=== PATIENT | female | born 1950 | race Caucasian/White ===

== ENCOUNTER → 2017-06-18 08:51 | Outpatient (CLI) | payer MEDICARE, OTHER, SELFPAY ==
[2017-06-18 09:45] VITALS: PULSE 105; PULSE 113; PULSE 116; PULSE 121; PULSE 123; PULSE 94; PULSE 97; O2SAT 87; O2SAT 90; O2SAT 91; O2SAT 92; O2SAT 93; O2SAT 97
--- NOTE | 2017-06-18 09:48 | CPS ---
Patient started test on room air, SpO2 94%. At the 2nd minute patient was 87%, patient had walked 310 ft by this time. Placed patient on 2 lpm O2, SpO2 recovered to 97%. Patient walked the remaining 4 minutes and 556 ft on 2 lpm O2, SpO2 90% or greater.
--- NOTE | 2017-06-18 15:03 | WT_ITS ---
PSN 6 Minute Walk Test - 6 Minute Walk Test 6 Minute Walk Test: 6 Minute Walk Test PSN:6-Minute Walk Test Start: 06/18/17 09: 45 Freq: Status: Active Protocol: [id number].6MINW Document 06/18/17 09:45 ROXANA (Rec: 06/18/17 09:51 ROXANA [id number]) 6 Minute Walk Test Date Performed 06/18/17 Time Performed 09:15 Height 5 ft 5 in Weight: 104.326 kg Weight in Pounds 230.[address]: Twan Maynard Assistive device used: None Pre-test Oxygen Delivery Method Room Air Pulse Ox (%) 93 Pulse Rate (60-100 beats/min) 94 Dyspnea Pamella Scale (0-10) 0 Exertion Pamella Scale (6-20) 6 1st minute Oxygen Delivery Method Room Air Pulse Ox (%) 91 Pulse Rate (60-100 beats/min) 105 H 2nd minute Oxygen Delivery Method Room Air Pulse Ox (%) 87 Pulse Rate (60-100 beats/min) 116 H Dyspnea Pamella Scale (0-10) 3 3rd minute Oxygen Flow Rate (L/min) (L/min) 2 Oxygen Delivery Method Nasal Cannula Pulse Ox (%) 97 Pulse Rate (60-100 beats/min) 113 H 4th minute Oxygen Flow Rate (L/min) (L/min) 2 Oxygen Delivery Method Nasal Cannula Pulse Ox (%) 92 Pulse Rate (60-100 beats/min) 116 H 5th minute Oxygen Flow Rate (L/min) (L/min) 2 Oxygen Delivery Method Nasal Cannula Pulse Ox (%) 90 Pulse Rate (60-100 beats/min) 121 H 6th minute Oxygen Flow Rate (L/min) (L/min) 2 Oxygen Delivery Method Nasal Cannula Pulse Ox (%) 90 Pulse Rate (60-100 beats/min) 123 H Dyspnea Pamella Scale (0-10) 2 Exertion Pamella Scale (6-20) 13 Post-test Oxygen Flow Rate (L/min) (L/min) 2 Oxygen Delivery Method Nasal Cannula Pulse Ox (%) 97 Pulse Rate (60-100 beats/min) 97 Full Laps Walked 14 Partial Lap, Number of Tiles Walked 40 Total Distance Walked (ft) 866 06/18/17 09:48 Cardiopulmonary Services by Lilly Krishnamurthy Patient started test on room air, SpO2 94%. At the 2nd minute patient was 87%, patient had walked 310 ft by this time. Placed patient on 2 lpm O2, SpO2 recovered to 97%. Patient walked the remaining 4 minutes and 556 ft on 2 lpm O2 , SpO2 90% or greater. Initialized on 06/18/17 09:48 - END OF NOTE - Interpretation Interpretation: The patient was noted to be 93% on room air at rest. The patient then ambulated with no assistive devices, but in the second minute desaturated to 87% . The patient was placed on 2 L nasal cannula with improvement to 98%. Patient did desaturate as low as 90% and had persistent tachycardia noted with a peak heart rate of 123 bpm. In total, patient traveled 866 feet. These findings are consistent with a respiratory limitation exercise tolerance. - Recommendations Recommendations: Patient requires no supplemental oxygen at rest, but should be using 2 L/min with any exertion.
== END ==
PROVIDERS: Family Provider Internal Medicine; PCP Internal Medicine; Visit Provider Internal Medicine Critical Care Medicine
DX: J44.9 Chronic obstructive pulmonary disease, unspecified (principal)
CPT/HCPCS: 94618

== ENCOUNTER → 2017-06-24 07:07 | Outpatient (CLI) | payer MEDICARE, OTHER, SELFPAY ==
--- NOTE | 2017-06-24 13:01 | PFT ---
INTRODUCTION: The patient is a 66-year-old female currently under the care of myself the presents for pulmonary function testing secondary to a diagnosis of COPD. Respiratory therapy reports good patient effort and reports no other concerns. Bronchodilators were used during testing. INTERPRETATION: Forced expiration spirometry demonstrates the presence of a severe large airways obstructive ventilatory defect. There was a significant response to aerosolized bronchodilators noted. Spirograms are of fair quality and do not plateau indicating slow emptying of the lungs. The respiratory flow volume loop reveals decreased expiratory flow rates at all lung volumes consistent with airways obstruction. Body plethysmography was performed and reveals an elevated TLC and RV, indicative of underlying hyperinflation and air-trapping. Diffusing capacity by single breath CO was severely reduced at 40% of predicted. IMPRESSION: These pulmonary function studies demonstrate the presence of a partially reversible severe large airways obstructive ventilatory defect with associated hyperinflation, air trapping and symmetric reduction in diffusing capacity.
== END ==
PROVIDERS: Family Provider Internal Medicine; PCP Internal Medicine; Visit Provider Internal Medicine Critical Care Medicine
DX: J44.9 Chronic obstructive pulmonary disease, unspecified (principal)
CPT/HCPCS: 94060; 94726; 94729

== ENCOUNTER 2017-06-28 09:30 | Outpatient (RCR) | payer MEDICARE, OTHER, SELFPAY ==
--- NOTE | 2017-06-14 13:12 | PR.HP_ITS ---
History of Present Illness Arrival date:: 06/14/17 Arrival time:: 13:03 Date of Referral:: 06/02/17 Date of Evaluation: 06/14/17 Referring Physician: Dr.Derek Maynard Primary Diagnosis: COPD Stage III Severe, asthma component History of Present Illness: Patient is a 66 yr old female patient of Dr. Twan Maynard who presents to pulmonary rehab today for her COPD and asthma. [facility] Breathless Scale: When is the patient short of breath? Y/N Grade: Description of Breathlessness: 0 I only get breathless with strenuous exercise. 1 I get short of breath when hurrying on level ground or walking up a slight hill. 2 On level ground, I walk slower than people of the same age because of breathless, or have to stop for breath when walking at my own pace. 3 I stop for breath after walking 100 yards or after a few minutes on level ground. 4 I am too breathless to leave the house or I am breathless when dressing. Respiratory Problems: Yes: Fatigue, Wheezing, Able to Speak in Full Sentences, Dyspnea with Activity No: Retain Secretions, Limited Range of Motion, Dizziness, Ankle Swelling, Anxiety, Panic, Dyspnea Lying Down Flat, Cough with Secretions Home Medications: Home Medications Levothyroxine [Synthroid] 25 mcg PO DAILY 06/10/16 Montelukast [Singulair] 10 mg PO DAILY 06/10/16 albuterol sulfate 1.25 mg/3 mL solution for nebulization 1.25 mg INHALATION Q4H PRN ml 05/28/17 citalopram 10 mg tablet 10 mg PO QDAY 05/28/17 fluticasone 50 mcg/actuation nasal spray,suspension 2 spray INTRANASAL QDAY lansoprazole 15 mg capsule,delayed release 15 mg PO QDAY 05/28/17 rizatriptan 10 mg tablet 10 mg PO ONCE PRN 05/28/17 zolpidem 10 mg tablet 10 mg PO QHS tab 05/28/17 albuterol sulfate HFA 90 mcg/actuation aerosol inhaler 2 puff INHALATION Q4H PRN #1 device 06/01/17 budesonide-formoterol HFA 160 mcg-4.5 mcg/actuation aerosol inhaler 2 puff PO BID #1 device 06/01/17 metoprolol succinate ER 25 mg tablet,extended release 24 hr 25 mg PO QDAY tab 06/01/17 tiotropium bromide 2.5 mcg/actuation mist for inhalation 2 puff INHALATION Q24H #1 device 06/01/17 Allergies/Adverse Reactions: Allergies No Known Allergies Allergy (Verified 06/01/17 09:14) - Secretions Thick:: No Thin:: No Hx of Sleep Apnea: No Do you snore loudly (louder than talking or can be heard through closed doors)? : Yes Do you often feel tired/ fatigued/ sleepy during daytime?: Yes Has anyone observed you stop breathing during sleep?: No History of Hypertension (for STOP score): No STOP Results: Positive Medical Utilization Do you use a peak flow meter at home?: No Do you use a spacer device with your inhalers?: No Number of hospital visits in the last year?: 0 Number of emergency room visits in the last year?: 1 Do you see your physician on a regular schedule?: Yes How often?: [address] Maynard; Dr. Astudillo on PRN basis. Advanced Directives - Advanced Directives Power of County Health Officer: Yes Living Will: Yes Advance Directives Information Provided: No Advance Directives on File: No DNR Order?:: No - MOLST See MOLST form: No Past Medical History Medical History: Past Medical History (Last Reviewed 06/01/17 @ 09:14 by Eileen Mathew) BMI 37.0-37.9, adult (Chronic) Z68.37 Hypothyroidism (Chronic) E03.9 Acute asthma exacerbation (Acute) J45.901 Cough R05 Fatigue R53.83 Hypoxia R09.02 Pneumonia J18.9 Shortness of breath R06.02 Allergic rhinitis J30.9 Asthma J45.909 COPD (chronic obstructive pulmonary disease) J44.9 Depression F32.9 HTN (hypertension) I10 Postnasal drip R09.82 Surgical History: Past Surgical History (Last Reviewed 06/01/17 @ 09:14 by Eileen Mathew) H/O thumb surgery Z98.890 to remove arthritis H/O: hysterectomy Z90.710 History of appendectomy Z90.49 TMJ surgery Family History: Family History (Last Reviewed 06/01/17 @ 09:14 by Eileen Mathew) Mother Ovarian cancer Brother Brain cancer Grandmother Breast cancer - Current/ Previous Services Pulmonary Rehab:: No Social History - Smoking History Smoking Status: Former smoker Years Smokin Packs Smoked per Day: 1 Hx Smoking Cessation Date: 1998 Hx Tobacco Use: Yes Hx Smoking Exposure: No - Alcohol Use Alcohol Usage: No - Substance Abuse Hx Substance Use: No - Occupation Occupation (List type of work in comments):: Retired - Hobbies, Recreation, Social Activities Hobbies: Sewing, Hiking, Walking, Exercise - bicycling Recreational Activities: I am able to engage in all my recreational activities Functioning ADL/IADL - Current Ability Current Ability: Independent Self-Care (e.g.,grooming, dressing, & bathing), Independent Ambulation, Independent Transfer, Independent Household tasks (e.g. , light meal prep, laundry, shopping) - Pt Functioning Prior to Problem Prior Functioning: Self-Care (e.g.,grooming, dressing, & bathing): Independent, Ambulation: Independent, Transfer: Independent, Household tasks (e.g., light meal prep, laundry, shopping): Independent Social Environment - Status Marital Status: - Current Living Arrangements Living Environment:: Spouse - Children How many children do you have?: 2 Do any of your children live nearby?: Yes - Safety Do you feel safe in your surroundings?: Yes - Assistance Do you need any assistance at home?: none Review of Systems Review of Systems: Right click = Denies (Slash). Left click = Reports ([place]) Respiratory: Reports: Appetite, Normal, Sleep, Normal. Denies: Cough, SOB at Rest, Sputum production Is Patient Pain Free?: No Pain Location: none Risk Factor Assessment - Chief Complaint Chief Complaint: Patient is known asthmatic with stage III classification Severe COPD. - Vital Signs Temperature: 98.7 F Pulse Rate: 96 Pulse Ox: 93 - room air Blood Pressure: 132/84 Nailbeds:: pink - Smoking Do you use tobacco products? If so, how much and for how long?: No If no, have you EVER used tobacco products?: Quit greater than 12 months ago Exposure to 2nd-hand smoke? How much and how long?: No Do you plan to quit smoking?: No - Diabetes Nutrition Referral for Diabetes: No - Obesity Height: 5 ft 5 in Weight:: 235 lb Weight in Pounds: 235.0 lbs Weight Source: Standing Scale Body Mass Index (BMI): 39.1 Nutritional Referral for Obesity: Yes - Not interested at present time, maybe at some point. - Physical Activity Physical Inactivity: Reg Exercise 30 min/day - Risk Stratification Risk Guidelines: Lowest Risk: Risk Factor for Smoking, Risk Factor for Dyslipidemia, Risk Factor for Diabetes, Risk Factor for Obesity, Risk Factor for Hypertension, Risk Factor for Sedentary Lifestyle, Risk Factor for Depression - For Smoking Smoking Risk Guidelines: Smoking Low Risk: None or quit greater than 6 months ago. Smoking Moderate Risk: Smoker or quit 6 months or less ago. Smoking High Risk: Smoker - For Dyslipidemia Dyslipidemia Risk Guidelines: Low Risk: Moderate Risk: High Risk: 15-25% fat 25.1-29% fat >/= 30% fat. <7% sat fat 7-9% sat fat >9% sat fat. <150 mg chol 150-299 mg chol >/= 300 mg chol. LDL <100 LDL 100-129 LDL >/= 130. Chol/HDL ratio <5.0 Chol/HDL ratio 5.0-6.0 Chol/HDL ratio >6.0. Triglycerides <100 Triglycerides 100-149 Triglycerides >/= 150 - For Diabetes Mellitus Diabetes Risk Guidelines: Diabetes Low Risk: HgA1c <6.5% and/or FBG <120. Diabetes Moderate Risk: HgA1c 6.6-7.9% and/or FBG 120-180. Diabetes High Risk: HgA1c >/= 8% and/or FBG >180 - For Obesity/Overweight Obesity/Overweight Risk Guidelines: Obesity Low Risk: BMI <25.0. Obesity Moderate Risk: BMI 25-29.9. Obesity High Risk: BMI >/= 30.0 - For Hypertension Hypertension Risk Guidelines: Hypertension Low Risk: Systolic <120 and Diastolic <80. Hypertension Moderate Risk: Systolic 120-139 and Diastolic 80-89. Hypertension High Risk: Systolic >/= 140 and Diastolic >/= 90 - For Sedentary Lifestyle Sedentary Lifestyle Risk Guidelines: Sedentary Lifestyle Low Risk: >/= 1 ,500 kcal/week. Sedentary Lifestyle Moderate Risk: 700-1,499 kcal/week. Sedentary Lifestyle High Risk: < 700 kcal/week - For Depression Depression Risk Guidelines: Depression Low Risk: Not clinically depressed. Depression Moderate Risk: Mildly depressed. Depression High Risk: Clinically depressed Motivation - Motivation to Participate On a scale of 1 to 10, how prepared are you to commit to attending program?: 9 What do you see as barriers to successfully being able to complete the program? : can't improve What do you see as the benefits of succesfully completing the program? In other words, what do you hope to get out of participating in the program?: breathe better Are there issues you are dealing with that will interfere with completing the program?: none Do you have a spouse or signficant other, family or friends who will help support you to complete the program?: yes Diagnostic Data Review - 6 Minute Walk Test 6 Minute Walk Test: Patient ambulated 708 feet over the course of 6 minutes on room air without assistance device. She did desaturate to 89% room air. - Pulmonary Function Test FEV1:: 0.95 - 37% predicted FVC:: 2.30 - 70% predicted FEV1/FVC%:: 41
[2017-06-14 13:19] VITALS: BP 132/84; PULSE 96; TEMP 37.1; O2SAT 93; BMI 39.1
--- NOTE | 2017-06-14 13:25 | PCM.PR.DAT ---
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 Effective Oct 30, 2012 our hours will be changing to 8:00 to 4:30 on Wednesday, Wednesday and Wednesday. First Date of the Month: 06/14/17 Last Date of the Month: 06/28/17
--- NOTE | 2017-06-14 13:40 | PR.ITP_ITS ---
General Information - General Information Admitting Diagnosis: COPD Stage III Severe, asthma Gold Classification:: GOLD 3: Severe Oxygen: none - PFT FEV1:: 0.95 FVC:: 2.30 FEV1/FVC%:: 41 - Education/Goals Barriers to Learning: None Individual Counseling: Initial Assessment: Dyspnea control techniques at rest, activity, and ADLs, Inhaled and respiratory medications, ADL management and pacing, Nutrition & weight management, Home exercise plan & guidelines Patient Goals: Breathe better: Initial Assessment, Increase endurance/stamina: Initial Assessment, Return to recreation/hobby: Initial Assessment, Improve weight: Initial Assessment Exercise - Initial Assessment - Visit Date of Eval: 06/14/17 - established plan of care - Problem/Goals Problems: Knowledge deficit exercise guidelines, Knowledge deficit exercise safety - Exercise Prescription Mode:: Treadmill, Rower, Airdyne, NuStep, Arm Ergometer Frequency (x/week): 3 Duration:: 30 MET LEVEL:: 2 - 2.0-3.0 HR (bpm):: 116 - 108-116 THHR Exercise Progression: per protocol. - Plan Plan and Plan to Review:: Benefits of exercise, Core components of exercise, How to measure dyspnea level, How to monitor dyspnea level, Exercise intensity, Exercise safety guideline, Home exercise guidelines, Pamella: 3-4/11-13 Disease Management - Initial - Problems/Goals-Hypoxemia Hypoxemia Problems:: No home O2 Hypoxemia Goals:: Hypoxemia managed - Problems/Goals-Medications Medication Goals: Correct technique/timing & care of MDI, DPI, nebulizer, and spacer. - Problems/Goals-Bronchial Hygiene Bronchial Hygiene Problems:: Respiratory infection Prevention/Management Bronchial Hygiene Goals:: Pt demonstrates effective cough, effective secretion clearance., Pt describes signs and symptoms of infection. - Initial Assessment SpO2:: 93 Does pt report taking home meds as prescribed?: Yes Medications: Yes MDI, Yes DPI, Yes NEB, No Spacer Patient Reports:: No cough - Plans Hypoxemia Plan:: Monitor SpO2 rest & with exercise, Train appropriate O2 use with exercise, Train O2 safety & systems Reviewed prescribed medications:: Purpose, Schedule, Side effects, Importance of compliance Instruct correct technique/timing & care:: MDI, DPI, Nebulizer, Return demo use of inhaler Bronchial Hygiene Plan: Controlled cough, Vibratory PEP device, Hydration, Hand hygiene, Signs/symptoms to report: Psychosocial - Initial Assess - Problems/Goals Problems: Impaired Q.O.L. Psychosocial Goals: Improved Q.O.L. - Psychosocial Test Depression:: Impaired QOL Tests Completed: Mood Scale Test Referred to MD for counseling:: No - Plan Reviewed screening results: Yes Instructions given regarding:: Benefits of exercise, Relaxation techniques, Training in coping strategies Tobacco - Initial Assessment - Program Goals Tobacco Program Goals: Complete smoking cessation. Attend education classes. Improve Knowledge Test score - Stage of Change Stages of Change:: Action - Learning Barriers Learning Barriers: Ready to Learn - Family Support Do you have family support?: Yes - Tobacco Use Tobacco Use: Non-smoker Do you use smokeless tobacco?: No - Intervention Smoking Cessation Referral:: No Individual Education/Counseling:: No Education Schedule Given:: Yes - Education Gave Education Materials For:: Pulmonary Disease, Risk Factors, Breathing Techniques, Medical Compliance, Pulmonary A&P, Exacerbation Signs & Symptoms, Stress & Relaxation Nutrition/Wt Mgmt - Initial - Problems/Goals Problems: Overweight Goals: Wt Loss 1-2 lbs per week - Weight Management Knowledge Deficit Management of:: Overweight Admit Height:: 5 ft 5 in Admit Weight:: 235 lb Admit BMI:: 39.1 - Diabetes Diabetes:: No Insulin: No Do you monitor your blood sugar at home?: No - Intervention Referral to dietitian:: No Referral to Diabetic Clinic:: No Will attend diet classes:: Yes - Plan Nutrition Plan: Yes Nutrition education class:, Yes Medication education class [ Prednisone]:, Yes Weight control education class: Patient Health Questionnaire Initial Assessment 1. Little interest or pleasure in doing things: More than half the days 2. Feeling down, depressed, or hopeless: More than half the days 3. Trouble falling or staying asleep, or sleeping too much: More than half the days 4. Feeling tired or having little energy: Nearly every day 5. Poor appetite or overeating: Several days 6. Feeling bad about yourself -- or that you are a failure or have let yourself or your family down: Several days 7. Trouble concentrating on things, such as reading the newspaper or watching television: Not at all 8. Moving or speaking so slowly that other people could have noticed. Or the opposite - being so fidgety or restless that you have been moving around a lot more than usual: Not at all 9. Thoughts that you would be better off , or of hurting yourself in some way: Not at all How difficult have these problems made it for you to do your work, take care of things at home, or get along with other people?: Not difficult at all Total Score: 11 COPD Knowledge Test Initial COPD is a lung disease that:: Makes it hard to breathe & gets worse over time In the [place] the term COPD describes 2 main lung conditions:: Emphysema & pulmonary hypertension The most common lung irritant that causes COPD is:: Cigarette smoke Common signs and symptoms of COPD include:: An ongoing cough/cough that produces a large amount of mucus, & SOB If you have COPD, what steps can you take?: All of the above Swelling of the ankles is common in COPD:: False Fatigue [tiredness] is common in COPD:: True Wheezing is common in COPD:: True Crushing chest pain is common in COPD:: False Rapid weight loss is common in COPD:: False Breathlessness is a normal response to exercise: True Exercise should be avoided if it makes you short of breath: False All bronchodilators act within 10 minutes: False A spacer device increases the medication to the lungs: True Annual flu vaccine is recommended for pts w/lung disease: False COPD Knowledge Test Total Score:: 13 COPD Assessment Test [CAT] - Questions Never cough = 0, Cough all the time = 5: 1 No phlegm = 0, Chest full of phlegm = 5: 1 No chest tightness = 0, Chest very tight = 5: 2 No breathless w/exertion = 0, Very breathless w/exertion = 5: 5 No limitations w/activity = 0, Very limited w/activity = 5: 2 Confident leaving home = 0, Not at all confident = 5: 0 Sleep soundly = 0, Don't sleep soundly = 5: 3 Lots of energy = 0, No energy at all = 5: 5 Total CAT score:: 19 Self-Efficacy Initial Assessment We would like to know how confident you are in doing certain activities. Please select your confidence level for:: Select your confidence level for the following using the scale 1-10 where 1 is not at all confident and 10 is totally confident. Your score is the average of all 6 responses. Fatigue: How confident are you that you can keep the fatigue caused by your disease from interfering with the things you want to do? Select Number: 5 Physical Discomfort or Pain: How confident are you that you can keep the physical discomfort or pain of your disease from interfering with the things you want to do? Select Number: 5 Emotional Distress: How confident are you that you can keep the emotional distress caused by your disease from interfering with the things you want to do? Select Number: 8 Other Symptoms or Health Problems: How confident are you that you can keep other symptoms or health problems from interfering with the things you want to do? Select Number: 3 Different Tasks and Activities: How confident are you that you can do the different tasks and activities needed to manage your health condition so as to reduce your need to see a doctor? Select Number: 7 Medication: How confident are you that you can do things other than just taking medication to reduce how much your illness affects your everyday life? Select Number: 8 Total Score:: 6 Nutrition Survey - Nutrition Survey Instructions Scoring Instructions: Scoring is as follows: Yes = 1 points. No = 0 point. Patient score that is >/=12 is considered to be at potential nutritional risk and could benefit from a referral to a registered dietitian. - Nutrition Survey Initial Have you lost >10 lbs over the past 2 months without trying?: No Are you following a special diet at home for diabetes, low fat, or low salt?: No Are you interested in meeting with a dietitian for help understanding your diet? : No Do you eat less than 3 meals a day?: No Do you eat fatty meats (castellanos, sausage, ribs, etc), fried foods, desserts, large amounts of salad dressings, margarine, butter, or cheese most days?: Yes Do you have food allergies? [Enter types in comment field]: No Do you eat in restaurants more than 3 times a week?: No Do you season food with salt, seasoning salt, or garlic salt?: No Do you used canned, boxed, frozen meals, or soups, seasoning packets?: Yes Total Score:: 2
[2017-06-14 14:19] VITALS: O2SAT 93; BMI 39.1
== END 2017-06-28 23:59 ==
LOC: PR 09:30
PROVIDERS: Family Provider Internal Medicine; PCP Internal Medicine; Visit Provider Internal Medicine Critical Care Medicine
DX: J44.9 Chronic obstructive pulmonary disease, unspecified (principal)
CPT/HCPCS: 97150; G0424

== ENCOUNTER → 2017-07-16 08:38 | Outpatient (CLI) | payer MEDICARE, OTHER, SELFPAY ==
[2017-07-16 09:26] LABS: Absolute Lymphocyte Count 1.29 X10^3/ul (0.83-4.51); Absolute Neutrophil Count 4.2 X10^3/uL (2.0-7.7); Basophil# 0.01 X10^3/uL; Basophil% 0.2 % (0-1); Eosinophil# 0.01 X10^3/uL; Eosinophils% 0.2 % (0-5); Hematocrit 43.8 % (37-47); Hemoglobin 14.3 g/dl (12.0-15.0); Lymphocyte # 1.29 X10^3/ul (4.0); Lymphocyte % 21.2 % (19-41); Mean Corp Hgb Conc 32.6 g/gl (32-36); Mean Corpuscular Hgb 29.4 pg (27.0-32.0); Mean Corpuscular Volume 90.1 fL (81-99); Mean Platelet Vol. 11.5 fl (6.2-12.0); Monocyte# 0.57 X10^3/uL; Monocyte% 9.4 % (0-10); Neutrophil # 4.18 X10^3/uL (2.7-7.7); Neutrophil % 68.7 % (47-70); POSITIVE COUNT NO; POSITIVE DIFFERENTIAL NO; POSITIVE MORPHOLOGY NO; Platelet Count 226 K/mm3 (150-450); RBC Distribution Width CV 14.2 % (11.6-14.6); RBC Distribution Width SD 46.4 fl (35.1-43.9); Red Blood Count 4.86 M/mm3 (4.2-5.4); White Blood Count 6.1 K/mm3 (4.4-11.0)
[2017-07-20 16:08] LABS: Alternaria alternata <0.10 kU/L (Class 0); Bermuda Grass 4.16 kU/L (Class IV); Bluegrass, Kentucky 4.18 kU/L (Class IV); Cat Hair/Dander, Standard <0.10 kU/L (Class 0); D farinae Mite 0.81 kU/L (Class II); D pteronyssinus 0.25 kU/L (Class 0/I); Dog Epithelia <0.10 kU/L (Class 0); Elm, American White 3.87 kU/L (Class III); Oak, White 4.11 kU/L (Class IV); Plantain, English 3.79 kU/L (Class III)
[2017-07-21 03:08] LABS: Aspirgillus flavus Negative (Neg:<1:1); Aspirgillus fumigatus Negative (Neg:<1:1); Aspirgillus niger Negative (Neg:<1:1)
[2017-07-21 10:20] LABS: Immunoglobulin E 140 IU/mL (0-100)
[2017-07-21 10:47] LABS: Mouse Urine <0.10 kU/L (Class 0)
== END ==
PROVIDERS: Family Provider Internal Medicine; PCP Internal Medicine; Visit Provider Nurse Practitioner Acute Care
DX: J44.9 Chronic obstructive pulmonary disease, unspecified (principal); J30.9 Allergic rhinitis, unspecified; J45.909 Unspecified asthma, uncomplicated
CPT/HCPCS: 36415; 82785; 85025; 86003; 86606; 97150; G0424

== ENCOUNTER 2017-07-28 09:30 | Outpatient (RCR) | payer MEDICARE, OTHER, SELFPAY ==
[2017-06-29 01:06] VITALS: PULSE 96; TEMP 37.1; O2SAT 93
--- NOTE | 2017-07-22 10:25 | PR.DATECOV_ITS ---
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 Effective Oct 30, 2012 our hours will be changing to 8:00 to 4:30 on Wednesday, Wednesday and Wednesday. First Date of the Month: 07/30/17 Last Date of the Month: 08/28/17
--- NOTE | 2017-07-22 10:35 | PR.ITP_ITS ---
General Information - General Information Admitting Diagnosis: COPD Gold Classification:: GOLD 3: Severe - Education/Goals Barriers to Learning: None Individual Counselin-Day Assessment: Dyspnea control techniques at rest, activity, and ADLs - improved, Exacerbation prevention & management, ADL management and pacing - uses proper breathing techniques, Nutrition & weight management, Home exercise plan & guidelines Patient Goals: Breathe better: 30-Day Assessment - uses controlled breathing appropiately with ADLs., Increase endurance/stamina: 30-Day Assessment - more energy, Return to recreation/hobby: 30-Day Assessment - doing more at home, Improve weight: 30-Day Assessment - not progressing as planned Exercise - 30-Day Assessment - Exercise Prescription Mode:: Treadmill, Airdyne, NuStep, Arm Ergometer Frequency (x/week): 3 Duration:: 30 Aerobic Exercise [30-60 min 3-7x/week]:: Progressing Target heart rate: 124-131 Pamella MET Level:: 2.5 - unable to increase due to HRs and BPs - Home Exercise Home Exercise:: No Disease Management - 30-Day - Hypoxemia Reassessment: Demonstrates knowledge of O2 Rx with exercise - Medications Medication list reviewed:: Yes Taking medications 100% of the time:: Met Medication reassessment: Yes Pt demonstrates correct technique timing for MDI, Yes Pt demonstrates correct technique timing for DPI, Yes Pt demonstrates correct technique timing for NEB, Yes Pt demonstrates correct technique timing for spacer - instructed use of spacer device - Bronchial Hygiene Bronchial Hygiene Plan: Yes Pt demonstrates correctly for effective cough, Yes Pt demo correct for device - instructed use of acapella device, Yes Pt demo correct for improved hydration, Yes Pt demo correct for hand hygiene Psychosocial - 30-Day - Assessment Reassessment: Management of stress & depression, Practicing interventions, COPD assessment w/ CAT, Geriatric depression screening, Self efficacy score Tobacco - 30-Day Assessment - Program Goals Tobacco Program Goals: Complete smoking cessation. Attend education classes. Improve Knowledge Test score - Stage of Change Stages of Change:: Action - Learning Barriers Learning Barriers: Participates in education - Family Support Do you have family support?: Yes - Tobacco Use Tobacco Use: Non-smoker - Intervention Education Schedule Given:: Yes - Education Gave Education Materials For:: Tobacco Triggers, Pulmonary Disease, Risk Factors , Breathing Techniques, Medical Compliance, Pulmonary A&P, Exacerbation Signs & Symptoms, Stress & Relaxation Nutrition/Wt Mgmt - 30-Day - Weight Management Weight:: 238 lb - up 2# Weight Goals Progress:: Referral to structured weight management program - Patient could benefit from stuctured weight loss program; Why Weight. Patient Health Questionnaire 30-Day Re-eval Assessment 1. Little interest or pleasure in doing things: Several days 2. Feeling down, depressed, or hopeless: Several days 3. Trouble falling or staying asleep, or sleeping too much: Several days 4. Feeling tired or having little energy: More than half the days 5. Poor appetite or overeating: Not at all 6. Feeling bad about yourself -- or that you are a failure or have let yourself or your family down: Not at all 7. Trouble concentrating on things, such as reading the newspaper or watching television: Not at all 8. Moving or speaking so slowly that other people could have noticed. Or the opposite - being so fidgety or restless that you have been moving around a lot more than usual: Not at all 9. Thoughts that you would be better off , or of hurting yourself in some way: Not at all How difficult have these problems made it for you to do your work, take care of things at home, or get along with other people?: Not difficult at all Total Score: 5 COPD Assessment Test [CAT] - Questions Never cough = 0, Cough all the time = 5: 1 No phlegm = 0, Chest full of phlegm = 5: 1 No chest tightness = 0, Chest very tight = 5: 2 No breathless w/exertion = 0, Very breathless w/exertion = 5: 3 No limitations w/activity = 0, Very limited w/activity = 5: 2 Confident leaving home = 0, Not at all confident = 5: 0 Sleep soundly = 0, Don't sleep soundly = 5: 2 Lots of energy = 0, No energy at all = 5: 3 Total CAT score:: 14 Self-Efficacy 30-Day Re-eval Assessment We would like to know how confident you are in doing certain activities. Please select your confidence level for:: Select your confidence level for the following using the scale 1-10 where 1 is not at all confident and 10 is totally confident. Your score is the average of all 6 responses. Fatigue: How confident are you that you can keep the fatigue caused by your disease from interfering with the things you want to do? Select Number: 6 Physical Discomfort or Pain: How confident are you that you can keep the physical discomfort or pain of your disease from interfering with the things you want to do? Select Number: 6 Emotional Distress: How confident are you that you can keep the emotional distress caused by your disease from interfering with the things you want to do? Select Number: 9 Other Symptoms or Health Problems: How confident are you that you can keep other symptoms or health problems from interfering with the things you want to do? Select Number: 5 Different Tasks and Activities: How confident are you that you can do the different tasks and activities needed to manage your health condition so as to reduce your need to see a doctor? Select Number: 8 Medication: How confident are you that you can do things other than just taking medication to reduce how much your illness affects your everyday life? Select Number: 9 Total Score:: 7
== END 2017-07-29 23:59 ==
LOC: PR 09:30
PROVIDERS: Family Provider Internal Medicine; PCP Internal Medicine; Visit Provider Internal Medicine Critical Care Medicine
DX: J44.9 Chronic obstructive pulmonary disease, unspecified (principal)
CPT/HCPCS: 97150; G0424

== ENCOUNTER → 2017-07-28 21:03 | Outpatient (CLI) | payer MEDICARE, OTHER, SELFPAY | PROVIDERS: Family Provider Internal Medicine; PCP Internal Medicine; Visit Provider Nurse Practitioner Acute Care | DX: G47.33 Obstructive sleep apnea (adult) (pediatric) (principal); J44.9 Chronic obstructive pulmonary disease, unspecified | CPT/HCPCS: 95810; 97150; G0424 ==

== ENCOUNTER → 2017-08-18 21:28 | Outpatient (CLI) | payer MEDICARE, OTHER, SELFPAY ==
[2017-08-18] MEDS: Zolpidem Tartrate 5 MG Tablet PO (21:30)
== END ==
PROVIDERS: Family Provider Internal Medicine; PCP Internal Medicine; Visit Provider Nurse Practitioner Acute Care
DX: G47.33 Obstructive sleep apnea (adult) (pediatric) (principal); J44.9 Chronic obstructive pulmonary disease, unspecified
CPT/HCPCS: 95811; 97150; G0424

== ENCOUNTER 2017-08-25 09:30 | Outpatient (RCR) | payer MEDICARE, OTHER, SELFPAY ==
[2017-07-30 00:55] VITALS: PULSE 96; TEMP 37.1; O2SAT 93
--- NOTE | 2017-08-20 10:33 | PR.DATECOV_ITS ---
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 Effective Oct 30, 2012 our hours will be changing to 8:00 to 4:30 on Wednesday, Wednesday and Wednesday. First Date of the Month: 08/29/17 Last Date of the Month: 09/28/17
--- NOTE | 2017-08-20 10:33 | PCM.PR.TP ---
Exercise - 90-Day Assessment - Exercise Prescription Mode:: Treadmill, NuStep, Arm Ergometer Frequency (x/week): 3 Duration:: 30 Aerobic Exercise [30-60 min 3-7x/week]:: Progressing Target heart rate: 124-132 Pamella-13 MET Level:: 3 - Home Exercise Home Exercise?: Yes Frequency:: 3 Time (minutes):: 30 - physically active, walking Disease Management - 90-Day - Hypoxemia Reassessment: Demonstrates knowledge of O2 Rx with exercise - Medications Medication list reviewed:: Yes Taking medications 100% of the time:: Met Medication reassessment: Yes Pt demonstrates correct technique timing for MDI, Yes Pt demonstrates correct technique timing for DPI, Yes Pt demonstrates correct technique timing for NEB, Yes Pt demonstrates correct technique timing for spacer - Bronchial Hygiene Bronchial Hygiene Plan: Yes Pt demonstrates correctly for effective cough, Yes Pt demo correct for device - return demonstration acapella, Yes Pt demo correct for improved hydration, Yes Pt demo correct for hand hygiene, Yes Pt demo correct for verbalize when to call MD Psychosocial - 90-Day - Assessment Depression reassess: Management of stress: Met, Management of depression: Met, Practicing interventions: Met Tobacco - 90-Day Assessment - Program Goals Tobacco Program Goals: Complete smoking cessation. Attend education classes. Improve Knowledge Test score - Stage of Change Stages of Change:: Action - Learning Barriers Learning Barriers: Participates in education - Family Support Do you have family support?: Yes - Tobacco Use Tobacco Use: Non-smoker - Intervention Education Schedule Given:: Yes - Education Gave Education Materials For:: Pulmonary Disease, Risk Factors, Breathing Techniques, Medical Compliance, Pulmonary A&P, Exacerbation Signs & Symptoms, Stress & Relaxation Nutrition/Wt Mgmt - 90-Day - Weight Management Weight:: 235 lb - loss 3# Weight Goals Progress:: Progressing Patient Health Questionnaire 90-Day Re-eval Assessment 1. Little interest or pleasure in doing things: Not at all 2. Feeling down, depressed, or hopeless: Not at all 3. Trouble falling or staying asleep, or sleeping too much: Not at all 4. Feeling tired or having little energy: Not at all 5. Poor appetite or overeating: Not at all 6. Feeling bad about yourself -- or that you are a failure or have let yourself or your family down: Not at all 7. Trouble concentrating on things, such as reading the newspaper or watching television: Not at all 8. Moving or speaking so slowly that other people could have noticed. Or the opposite - being so fidgety or restless that you have been moving around a lot more than usual: Not at all 9. Thoughts that you would be better off , or of hurting yourself in some way: Not at all Total Score: 0 COPD Assessment Test [CAT] - Questions Never cough = 0, Cough all the time = 5: 1 No phlegm = 0, Chest full of phlegm = 5: 0 No chest tightness = 0, Chest very tight = 5: 0 No breathless w/exertion = 0, Very breathless w/exertion = 5: 1 No limitations w/activity = 0, Very limited w/activity = 5: 0 Confident leaving home = 0, Not at all confident = 5: 1 Sleep soundly = 0, Don't sleep soundly = 5: 2 Lots of energy = 0, No energy at all = 5: 0 Total CAT score:: 5 Self-Efficacy 90-Day Re-eval Assessment We would like to know how confident you are in doing certain activities. Please select your confidence level for:: Select your confidence level for the following using the scale 1-10 where 1 is not at all confident and 10 is totally confident. Your score is the average of all 6 responses. Fatigue: How confident are you that you can keep the fatigue caused by your disease from interfering with the things you want to do? Select Number: 10 Physical Discomfort or Pain: How confident are you that you can keep the physical discomfort or pain of your disease from interfering with the things you want to do? Select Number: 10 Emotional Distress: How confident are you that you can keep the emotional distress caused by your disease from interfering with the things you want to do? Select Number: 10 Other Symptoms or Health Problems: How confident are you that you can keep other symptoms or health problems from interfering with the things you want to do? Select Number: 10 Different Tasks and Activities: How confident are you that you can do the different tasks and activities needed to manage your health condition so as to reduce your need to see a doctor? Select Number: 10 Medication: How confident are you that you can do things other than just taking medication to reduce how much your illness affects your everyday life? Select Number: 10 Total Score:: 10
== END 2017-08-28 23:59 ==
LOC: PR 09:30
PROVIDERS: Family Provider Internal Medicine; PCP Internal Medicine; Visit Provider Internal Medicine Critical Care Medicine
DX: J44.9 Chronic obstructive pulmonary disease, unspecified (principal)
CPT/HCPCS: 97150; G0424

== ENCOUNTER 2017-09-27 09:30 | Outpatient (RCR) | payer MEDICARE, OTHER, SELFPAY ==
[2017-08-29 00:47] VITALS: PULSE 96; TEMP 37.1; O2SAT 93
--- NOTE | 2017-09-21 09:12 | PCM.PR.DAT ---
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 Effective Oct 30, 2012 our hours will be changing to 8:00 to 4:30 on Wednesday, Wednesday and Wednesday. First Date of the Month: 09/29/17 Last Date of the Month: 10/29/17
--- NOTE | 2017-09-21 09:18 | PR.ITP_ITS ---
Exercise - Final Assessment - Exercise Prescription Mode:: Treadmill, NuStep, Arm Ergometer Frequency (x/week): 3 Duration:: 30 Aerobic Exercise [30-60 min 3-7x/week]:: Met Further followup [see D/C Summary]:: No Target heart rate: 124-132 Pamella-13 MET Level:: 3.2 - Maximal level - Home Exercise Home Exercise:: No Disease Management - Final - Hypoxemia Final Assessment: Demonstrates knowledge of O2 Rx with exercise - Medications Medication list reviewed:: Yes Taking medications 100% of the time:: Met Medication reassessment: Yes Pt demonstrates correct technique timing for MDI, Yes Pt demonstrates correct technique timing for DPI, Yes Pt demonstrates correct technique timing for NEB, Yes Pt demonstrates correct technique timing for spacer - returned demonstration use of spacer - Bronchial Hygiene Bronchial Hygiene Plan: Yes Pt demonstrates correctly for effective cough, Yes Pt demo correct for device - returned use of acapella, SMI and IMT devices, Yes Pt demo correct for improved hydration, Yes Pt demo correct for hand hygiene, Yes Pt demo correct for verbalize when to call MD Tobacco - Final Assessment - Program Goals Tobacco Program Goals: Complete smoking cessation. Attend education classes. Improve Knowledge Test score - Stage of Change Stages of Change:: Action - Learning Barriers Learning Barriers: Participates in education - Family Support Do you have family support?: Yes - Tobacco Use Tobacco Use: Non-smoker Do you use smokeless tobacco?: No - Intervention Smoking Cessation Referral:: No Individual Education/Counseling:: No Education Schedule Given:: Yes - Education Education Goal Reached?: Yes Nutrition/Wt Mgmt - Final - Weight Management Final Weight Assessment: Wt stable Weight:: 240 lb 8 oz - actually has gained weight Weight Goals Progress:: Referral to structured weight management program - Patient could benefit from a strucutred weight loss program in reducing weight. Patient Health Questionnaire Discharge Assessment 1. Little interest or pleasure in doing things: Not at all 2. Feeling down, depressed, or hopeless: Not at all 3. Trouble falling or staying asleep, or sleeping too much: Not at all 4. Feeling tired or having little energy: Not at all 5. Poor appetite or overeating: Not at all 6. Feeling bad about yourself -- or that you are a failure or have let yourself or your family down: Not at all 7. Trouble concentrating on things, such as reading the newspaper or watching television: Not at all 8. Moving or speaking so slowly that other people could have noticed. Or the opposite - being so fidgety or restless that you have been moving around a lot more than usual: Not at all 9. Thoughts that you would be better off , or of hurting yourself in some way: Not at all Total Score: 0 COPD Knowledge Test Discharge COPD is a lung disease that:: Makes it hard to breathe & gets worse over time In the [place] the term COPD describes 2 main lung conditions:: Emphysema & chronic bronchitis The most common lung irritant that causes COPD is:: Cigarette smoke Common signs and symptoms of COPD include:: An ongoing cough/cough that produces a large amount of mucus, & SOB If you have COPD, what steps can you take?: All of the above Swelling of the ankles is common in COPD:: False Fatigue [tiredness] is common in COPD:: True Wheezing is common in COPD:: True Crushing chest pain is common in COPD:: False Rapid weight loss is common in COPD:: False Breathlessness is a normal response to exercise: True Exercise should be avoided if it makes you short of breath: False All bronchodilators act within 10 minutes: True A spacer device increases the medication to the lungs: True Annual flu vaccine is recommended for pts w/lung disease: True COPD Knowledge Test Total Score:: 14 COPD Assessment Test [CAT] - Questions Never cough = 0, Cough all the time = 5: 1 No phlegm = 0, Chest full of phlegm = 5: 0 No chest tightness = 0, Chest very tight = 5: 0 No breathless w/exertion = 0, Very breathless w/exertion = 5: 1 No limitations w/activity = 0, Very limited w/activity = 5: 0 Confident leaving home = 0, Not at all confident = 5: 1 Sleep soundly = 0, Don't sleep soundly = 5: 2 Lots of energy = 0, No energy at all = 5: 1 Total CAT score:: 6 Self-Efficacy Discharge Assessment We would like to know how confident you are in doing certain activities. Please select your confidence level for:: Select your confidence level for the following using the scale 1-10 where 1 is not at all confident and 10 is totally confident. Your score is the average of all 6 responses. Fatigue: How confident are you that you can keep the fatigue caused by your disease from interfering with the things you want to do? Select Number: 10 Physical Discomfort or Pain: How confident are you that you can keep the physical discomfort or pain of your disease from interfering with the things you want to do? Select Number: 10 Emotional Distress: How confident are you that you can keep the emotional distress caused by your disease from interfering with the things you want to do? Select Number: 10 Other Symptoms or Health Problems: How confident are you that you can keep other symptoms or health problems from interfering with the things you want to do? Select Number: 10 Different Tasks and Activities: How confident are you that you can do the different tasks and activities needed to manage your health condition so as to reduce your need to see a doctor? Select Number: 10 Medication: How confident are you that you can do things other than just taking medication to reduce how much your illness affects your everyday life? Select Number: 10 Total Score:: 10 Nutrition Survey - Nutrition Survey Instructions Scoring Instructions: Scoring is as follows: Yes = 1 points. No = 0 point. Patient score that is >/=12 is considered to be at potential nutritional risk and could benefit from a referral to a registered dietitian. - Nutrition Survey Discharge Have you lost >10 lbs over the past 2 months without trying?: No Are you following a special diet at home for diabetes, low fat, or low salt?: No Are you interested in meeting with a dietitian for help understanding your diet? : No Do you eat less than 3 meals a day?: No Do you eat fatty meats (castellanos, sausage, ribs, etc), fried foods, desserts, large amounts of salad dressings, margarine, butter, or cheese most days?: Yes Do you have food allergies? [Enter types in comment field]: No Do you eat in restaurants more than 3 times a week?: No Do you season food with salt, seasoning salt, or garlic salt?: Yes Do you used canned, boxed, frozen meals, or soups, seasoning packets?: Yes Total Score:: 3
== END 2017-09-28 23:59 ==
LOC: PR 09:30
PROVIDERS: Family Provider Internal Medicine; PCP Internal Medicine; Visit Provider Internal Medicine Critical Care Medicine
DX: J44.9 Chronic obstructive pulmonary disease, unspecified (principal)
CPT/HCPCS: 97150; G0424

== ENCOUNTER 2017-10-04 09:30 | Outpatient (RCR) | payer MEDICARE, OTHER, SELFPAY ==
[2017-09-29 00:47] VITALS: PULSE 96; TEMP 37.1; O2SAT 93
--- NOTE | 2017-10-22 14:03 | PR.ITP_ITS ---
Exercise - Final Assessment - Exercise Prescription Mode:: Treadmill, Airdyne, NuStep, Arm Ergometer Frequency (x/week): 3 - Discharged 10/04/2017 Duration:: 35 Aerobic Exercise [30-60 min 3-7x/week]:: Met Target heart rate: 124-132 Pamella-12 MET Level:: 3.2 - Home Exercise Home Exercise:: Yes Disease Management - Final - Hypoxemia Final Assessment: Demonstrates knowledge of O2 Rx with exercise - Medications Medication list reviewed:: Yes Taking medications 100% of the time:: Met Medication reassessment: Yes Pt demonstrates correct technique timing for MDI, Yes Pt demonstrates correct technique timing for DPI, Yes Pt demonstrates correct technique timing for NEB, Yes Pt demonstrates correct technique timing for spacer - returned use of spacer/MDI - Bronchial Hygiene Bronchial Hygiene Plan: Yes Pt demonstrates correctly for effective cough, Yes Pt demo correct for device - returned use acapella device, Yes Pt demo correct for hand hygiene, Yes Pt demo correct for evalute sputum, Yes Pt demo correct for verbalize when to call MD Psychosocial - Final Assess - Assessment Depression reassess: Management of stress: Met, Management of depression: Met, Practicing interventions: Met Tobacco - Final Assessment - Program Goals Tobacco Program Goals: Complete smoking cessation. Attend education classes. Improve Knowledge Test score - Stage of Change Stages of Change:: Action - Learning Barriers Learning Barriers: Participates in education - Family Support Do you have family support?: Yes - Tobacco Use Tobacco Use: Non-smoker Do you use smokeless tobacco?: No - Intervention Smoking Cessation Referral:: No Education Schedule Given:: Yes - Education Education Goal Reached?: Yes Nutrition/Wt Mgmt - Final - Weight Management Weight:: 237 lb - down 3.5 # this month Weight Goals Progress:: Goal met Patient Health Questionnaire Discharge Assessment 1. Little interest or pleasure in doing things: Not at all 2. Feeling down, depressed, or hopeless: Not at all 3. Trouble falling or staying asleep, or sleeping too much: Not at all 4. Feeling tired or having little energy: Not at all 5. Poor appetite or overeating: Not at all 6. Feeling bad about yourself -- or that you are a failure or have let yourself or your family down: Not at all 7. Trouble concentrating on things, such as reading the newspaper or watching television: Not at all 8. Moving or speaking so slowly that other people could have noticed. Or the opposite - being so fidgety or restless that you have been moving around a lot more than usual: Not at all 9. Thoughts that you would be better off , or of hurting yourself in some way: Not at all Total Score: 0 COPD Knowledge Test Discharge COPD is a lung disease that:: Makes it hard to breathe & gets worse over time In the [place] the term COPD describes 2 main lung conditions:: Emphysema & chronic bronchitis The most common lung irritant that causes COPD is:: Cigarette smoke Common signs and symptoms of COPD include:: An ongoing cough/cough that produces a large amount of mucus, & SOB If you have COPD, what steps can you take?: All of the above Swelling of the ankles is common in COPD:: False Fatigue [tiredness] is common in COPD:: True Wheezing is common in COPD:: True Crushing chest pain is common in COPD:: False Rapid weight loss is common in COPD:: False Breathlessness is a normal response to exercise: True Exercise should be avoided if it makes you short of breath: False All bronchodilators act within 10 minutes: True A spacer device increases the medication to the lungs: True Annual flu vaccine is recommended for pts w/lung disease: True COPD Knowledge Test Total Score:: 14 COPD Assessment Test [CAT] - Questions Never cough = 0, Cough all the time = 5: 2 No phlegm = 0, Chest full of phlegm = 5: 3 No chest tightness = 0, Chest very tight = 5: 2 No breathless w/exertion = 0, Very breathless w/exertion = 5: 1 No limitations w/activity = 0, Very limited w/activity = 5: 3 Confident leaving home = 0, Not at all confident = 5: 3 Sleep soundly = 0, Don't sleep soundly = 5: 2 Lots of energy = 0, No energy at all = 5: 2 Total CAT score:: 18 Self-Efficacy Discharge Assessment We would like to know how confident you are in doing certain activities. Please select your confidence level for:: Select your confidence level for the following using the scale 1-10 where 1 is not at all confident and 10 is totally confident. Your score is the average of all 6 responses. Fatigue: How confident are you that you can keep the fatigue caused by your disease from interfering with the things you want to do? Select Number: 10 Physical Discomfort or Pain: How confident are you that you can keep the physical discomfort or pain of your disease from interfering with the things you want to do? Select Number: 10 Emotional Distress: How confident are you that you can keep the emotional distress caused by your disease from interfering with the things you want to do? Select Number: 10 Other Symptoms or Health Problems: How confident are you that you can keep other symptoms or health problems from interfering with the things you want to do? Select Number: 10 Different Tasks and Activities: How confident are you that you can do the different tasks and activities needed to manage your health condition so as to reduce your need to see a doctor? Select Number: 10 Medication: How confident are you that you can do things other than just taking medication to reduce how much your illness affects your everyday life? Select Number: 10 Total Score:: 10 Nutrition Survey - Nutrition Survey Instructions Scoring Instructions: Scoring is as follows: Yes = 1 points. No = 0 point. Patient score that is >/=12 is considered to be at potential nutritional risk and could benefit from a referral to a registered dietitian. - Nutrition Survey Discharge Have you lost >10 lbs over the past 2 months without trying?: No Are you following a special diet at home for diabetes, low fat, or low salt?: Yes Are you interested in meeting with a dietitian for help understanding your diet? : No Do you eat less than 3 meals a day?: No Do you eat fatty meats (castellanos, sausage, ribs, etc), fried foods, desserts, large amounts of salad dressings, margarine, butter, or cheese most days?: No Do you have food allergies? [Enter types in comment field]: No Do you eat in restaurants more than 3 times a week?: No Do you season food with salt, seasoning salt, or garlic salt?: No Do you used canned, boxed, frozen meals, or soups, seasoning packets?: Yes Total Score:: 2
== END 2017-10-05 09:30 | disposition home or self-care (01) ==
LOC: PR 09:30
PROVIDERS: Family Provider Internal Medicine; PCP Internal Medicine; Visit Provider Internal Medicine Critical Care Medicine
DX: J44.9 Chronic obstructive pulmonary disease, unspecified (principal)
CPT/HCPCS: 97150; G0424

== ENCOUNTER → 2017-11-09 10:07 | Outpatient (CLI) | payer MEDICARE, OTHER, SELFPAY ==
--- NOTE | 2017-11-09 10:09 | RAD_ITS ---
STUDY: X-RAY - RIGHT FOOT CLINICAL: Female, 66 years old. Pain top of foot TECHNIQUE: 3 view(s) of the foot. COMPARISON: None. FINDINGS: There is a plantar spur. The bones are diffusely osteopenic. There is no visualized acute or chronic fracture. Normal visualized subtalar, talonavicular, calcaneocuboid, tarsal and tarsometatarsal articulations. There is demineralization of the metatarsi. Normal metatarsophalangeal joint of the great toe. Normal tibial and fibular sesamoid bones. Normal interphalangeal joint of the great toe. Normal phalanges of the great toe. Normal second through fifth metatarsophalangeal joints. Normal interphalangeal joints and phalanges of the lesser toes. The soft tissue structures are unremarkable. RAD/Foot min 3 Views IMPRESSION: Bony osteopenia. Calcaneal spur. Electronically Signed: Gbariela Ruiz MD at 18:36 EDT Tel , Service support ,
== END ==
PROVIDERS: Family Provider Internal Medicine; PCP Internal Medicine; Visit Provider Nurse Practitioner Gerontology
DX: M79.671 Pain in right foot (principal)
CPT/HCPCS: 73630

== ENCOUNTER → 2018-04-21 08:33 | Outpatient (CLI) | payer MEDICARE, OTHER, SELFPAY ==
[2017-11-03 07:44] VITALS: BMI 39.9
[2018-04-21 08:42] LABS: Bacteria 0 SEEN /hpf (None Seen); Mucous, Urine 0 SEEN /hpf (<or=2+); Red Blood Cells-Urine 0 SEEN /hpf (0-5); White Blood Cells 0 SEEN /hpf (0-5)
[2018-04-21 09:21] LABS: Absolute Lymphocyte Count 1.63 X10^3/ul (0.83-4.51); Basophil# 0.02 X10^3/uL; Basophil% 0.3 % (0-1); Hematocrit 43.2 % (37-47); Hemoglobin 13.7 g/dl (12.0-15.0); Lymphocyte # 1.63 X10^3/ul (4.0); Lymphocyte % 26.4 % (19-41); Mean Corp Hgb Conc 31.7 g/gl (32-36); Mean Corpuscular Hgb 29.3 pg (27.0-32.0); Mean Corpuscular Volume 92.3 fL (81-99); Mean Platelet Vol. 11.2 fl (6.2-12.0); Monocyte# 0.44 X10^3/uL; Monocyte% 7.1 % (0-10); Neutrophil # 4.03 X10^3/uL (2.7-7.7); Neutrophil % 65.4 % (47-70); Platelet Count 229 K/mm3 (150-450); RBC Distribution Width CV 14.4 % (11.6-14.6); RBC Distribution Width SD 48.6 fl (35.1-43.9); Red Blood Count 4.68 M/mm3 (4.2-5.4); White Blood Count 6.2 K/mm3 (4.4-11.0)
[2018-04-21 09:23] LABS: POSITIVE COUNT NO; POSITIVE DIFFERENTIAL NO; POSITIVE MORPHOLOGY NO
[2018-04-21 09:37] LABS: Microalbumin,Random Urine 10.1 mg/L (NO RANGE EST.); Microalbumin:Creatinine Ratio 5.6 mg/g CRE (<30 mg/g CRE)
[2018-04-21 09:53] LABS: AST(SGOT) 26 U/L (15-37); Alanine Aminotransfer ALT/SGPT 33 U/L (13-56); Albumin, Serum 3.5 g/dL (3.2-5.0); Alkaline Phosphatase 88 U/L (45-117); Anion Gap 10 (5-15); BUN 13 mg/dL (7-18); BUN/Creat Ratio 13.2 RATIO (10-20); Calcium,Total 8.7 mg/dL (8.5-10.1); Chloride 106 mmol/L (98-107); Cholesterol 181 mg/dL (200); Creatinine, Serum 0.98 mg/dL (0.55-1.02); EST Glomerular Filtration Rate 60 mL/min (>60); Est Glom Filt Rate - Afr Amer 73 mL/min (>60); Free T3 2.6 pg/mL (2.18-3.98); Globulin 3.6 g/dL (2.2-4.2); Glucose 113 mg/dL (74-106); High Density Lipoprotein 40 mg/dL; Potassium 3.9 mmol/L (3.5-5.1); Protein, Total 7.1 g/dL (6.4-8.2); Sodium Level 142 mmol/L (136-145); Triglycerides 147 mg/dL; Very Low Density Lipoprotein 29 mg/dL (5-40)
[2018-04-21 09:54] LABS: Color, Urine Yellow (Yellow); Glucose, Dipstick Normal (Normal); Ketone-Dipstick Negative (Negative); Leukocyte Esterase-Dipstick Negative /ul (Negative); Nitrite-Dipstick Negative (Negative); Occult Blood-Urine Negative /ul (Negative); Protein-Dipstick Negative (Negative); Urine Bilirubin Dipstick Negative (Negative); Urine Clarity Sl. Cloudy (Clear); Urine Urobilinogen Normal (Normal)
[2018-04-21 09:55] LABS: Squamous Epithelial Cells - UA 5-10 SEEN /hpf (5-10)
== END ==
PROVIDERS: Family Provider Internal Medicine; PCP Internal Medicine; Referring Provider Internal Medicine; Visit Provider Internal Medicine
DX: I10 Essential (primary) hypertension (principal); E03.9 Hypothyroidism, unspecified
CPT/HCPCS: 36415; 80053; 80061; 81001; 82043; 82570; 84439; 84443; 84481; 85025

== ENCOUNTER → 2018-05-03 08:44 | Outpatient (CLI) | payer MEDICARE, OTHER, SELFPAY | PROVIDERS: Family Provider Internal Medicine; PCP Internal Medicine; Referring Provider Internal Medicine; Visit Provider Internal Medicine | DX: R00.2 Palpitations (principal) | CPT/HCPCS: 93225; 93226 ==

== ENCOUNTER → 2018-09-23 08:51 | Outpatient (CLI) | payer MEDICARE, OTHER, SELFPAY ==
[2018-06-16 09:00] VITALS: BMI 40.9
[2018-09-23 09:23] VITALS: PULSE 100; PULSE 117; PULSE 118; PULSE 120; PULSE 124; PULSE 128; PULSE 94; PULSE 96; O2SAT 87; O2SAT 89; O2SAT 90; O2SAT 91; O2SAT 93; O2SAT 96; O2SAT 97
--- NOTE | 2018-09-23 09:28 | CPS ---
PATIENT ARRIVED ON ROOM AIR WITH HER OWN PORTABLE O2 TANK FROM [employer]. TEST BEGAN ON ROOM AIR. PATIENT PLACED ON 2LPM DEMAND FLOW AT 2MIN D/T SPO2 87% RA. REMAINDER OF TESTING DONE ON 2LPM. RE-EDUCATED PT ON BENEFITS OF CONTINUING TO EXERCISE AT HOME SINCE D/C FROM PULMONARY REHAB PROGRAM
--- NOTE | 2018-09-23 11:03 | PCM.PSN.6M ---
PSN 6 Minute Walk Test - 6 Minute Walk Test 6 Minute Walk Test: 6 Minute Walk Test PSN:6-Minute Walk Test Start: 09/23/18 09:23 Freq: Status: Active Protocol: [id number] Document 09/23/18 09:23 [facility] (Rec: 09/23/18 09:31 [facility] [id number]) 6 Minute Walk Test Date Performed 09/23/18 Time Performed 09:00 Height 5 ft 5 in Weight: 106.594 kg Weight in Pounds 235.[address]: Twan Maynard Assistive device used: None Pre-test Oxygen Delivery Method Room Air Pulse Ox (%) 96 Pulse Rate (60-100 beats/min) 94 Dyspnea Pamella Scale (0-10) 3 Reported Symptoms Increased Work of Breathing 1st minute Oxygen Delivery Method Room Air Pulse Ox (%) 93 Pulse Rate (60-100 beats/min) 100 Dyspnea Pamella Scale (0-10) 4 Reported Symptoms Increased Work of Breathing 2nd minute Oxygen Delivery Method Room Air Pulse Ox (%) 87 Pulse Rate (60-100 beats/min) 118 H Dyspnea Pamella Scale (0-10) 5 Number of Rests Taken 1 Reported Symptoms Increased Work of Breathing 3rd minute Oxygen Flow Rate (L/min) (L/min) 2 Oxygen Delivery Method Nasal Cannula Pulse Ox (%) 93 Pulse Rate (60-100 beats/min) 117 H Dyspnea Pamella Scale (0-10) 5 Reported Symptoms Increased Work of Breathing 4th minute Oxygen Flow Rate (L/min) (L/min) 91 Oxygen Delivery Method Nasal Cannula Pulse Ox (%) 91 Pulse Rate (60-100 beats/min) 120 H Dyspnea Pamella Scale (0-10) 5 Reported Symptoms Increased Work of Breathing 5th minute Oxygen Flow Rate (L/min) (L/min) 2 Oxygen Delivery Method Nasal Cannula Pulse Ox (%) 90 Pulse Rate (60-100 beats/min) 124 H Dyspnea Pamella Scale (0-10) 6 Number of Rests Taken 1 Reported Symptoms Increased Work of Breathing 6th minute Oxygen Flow Rate (L/min) (L/min) 2 Oxygen Delivery Method Nasal Cannula Pulse Ox (%) 89 Pulse Rate (60-100 beats/min) 128 H Dyspnea Pamella Scale (0-10) 6 Reported Symptoms Increased Work of Breathing Post-test Oxygen Flow Rate (L/min) (L/min) 2 Oxygen Delivery Method Nasal Cannula Pulse Ox (%) 97 Pulse Rate (60-100 beats/min) 96 Dyspnea Pamella Scale (0-10) 3 Reported Symptoms Increased Work of Breathing Full Laps Walked 9 Partial Lap, Number of Tiles Walked 42 Total Distance Walked (ft) 573 09/23/18 09:28 Cardiopulmonary Services by Annita Corrigan PATIENT ARRIVED ON ROOM AIR WITH HER OWN PORTABLE O2 TANK FROM [employer]. TEST BEGAN ON ROOM AIR. PATIENT PLACED ON 2LPM DEMAND FLOW AT 2MIN D/T SPO2 87% RA. REMAINDER OF TESTING DONE ON 2LPM. RE-EDUCATED PT ON BENEFITS OF CONTINUING TO EXERCISE AT HOME SINCE D/C FROM PULMONARY REHAB PROGRAM Initialized on 09/23/18 09:28 - END OF NOTE - Interpretation Interpretation: The patient was noted to be 96% on room air at rest. With ambulation, patient desaturated to 87% in the second minute. Patient was placed on 2 L nasal cannula with improvement to 93%. The patient was then able to complete 6 minutes of walking with acceptable oxygen saturations. In total, patient traveled only 573 feet over the course of 6 minutes with no assistive devices and 2 breaks. Patient did have significant tachycardia of 128 bpm. These findings are consistent with a respiratory limitation exercise tolerance. - Recommendations Recommendations: The patient requires no supplemental oxygen at rest, but should be using 2 L nasal cannula oxygen with ambulation.
== END ==
PROVIDERS: Family Provider Internal Medicine; PCP Internal Medicine; Referring Provider Internal Medicine Critical Care Medicine; Visit Provider Internal Medicine Critical Care Medicine
DX: J96.11 Chronic respiratory failure with hypoxia (principal)
CPT/HCPCS: 94618

== ENCOUNTER → 2018-11-08 13:08 | Outpatient (CLI) | payer MEDICARE, OTHER, SELFPAY ==
[2018-09-28 08:17] VITALS: BMI 40.9
[2018-11-08 12:41] VITALS: BMI 41.2
--- NOTE | 2018-11-08 13:09 | CT_ITS ---
STUDY: LOW DOSE CT LUNG CANCER SCREENING REASON FOR EXAM: Female, 67 years old. Current smoker. One pack per day for 35 years. History of COPD. RADIATION DOSAGE (If Supplied By Facility): CTDIvol = ( 4.02 ) mGy, DLP = ( 138.93 ) mGycm TECHNIQUE: No contrast was administered. Low dose technique was utilized (average mAS-38 and kVp 120). 1.25 mm axial source images with a slice interval of 1.25-mm were reconstructed in lung windows. 2.5 mm axial source images with a slice interval of 2.5-mm were reconstructed in lung windows. 5.0 mm axial source images with a slice interval of 5.0-mm were reconstructed in soft tissue windows. Nodule measured using lung windows on PACS and/or independent workstation with automated measurement of minimum and maximum diameter. Nodule measurement reported as average diameter rounded to the nearest whole number. Growth is defined as an increase ins size of greater than 1.5 mm. COMPARISON: None. NODULES: No suspicious nodules seen. Emphysema: Mild emphysematous changes. Aorta: Atherosclerotic calcification. Coronary arteries: Coronary artery calcification. Mediastinal nodes: Small benign-appearing mediastinal lymph nodes. Other chest and abdominal findings: Degenerative changes of the thoracic spine. CT/Low Dose CT Lung Screening IMPRESSION: Lung-RADS category 2 - Continue annual screening with LDCT in 12 months. IMPORTANT NOTES FOR USE: ACR Lung-RADS Version 1.0 Assessment Categories Release Date: June 26, 2013 Category: Coded 0-4 bases on nodule(s) with highest degree of suspicion. Negative screen is defined as categories 1 and 2; a positive screen is defined as categories 3 and 4. Category 3 and 4A nodules that are unchanged on interval CT should be coded as category 2, and individuals returned to screening in 12 months. Category 4X: Category 3 or 4 nodules with additional imaging findings that increase the suspicion of lung cancer, such as spiculation, GGN that doubles in size in 1 year, enlarged lymph notes, etc. Category Modifiers: S (significant finding unrelated to lung cancer) and C (prior history of treated lung cancer) may be added to the 0-4 Lung-RADS Electronically Signed: Ariel Cleveland, at 13:58 EDT , Service support ,
--- NOTE | 2018-11-08 13:22 | BI_ITS ---
MAMMOGRAPHY - BILATERAL SCREENING REASON FOR EXAM: Female, 67 years old. Routine annual screening examination. PERTINENT HISTORY: Grandmother with breast cancer. TECHNIQUE: Digital bilateral breast shayy (3D mammographic acquisition) in the CC and MLO projections. 2-D mediolateral oblique (MLO) and craniocaudad (CC) views of both breasts were obtained. CAD: Full Field Digital Mammography with Computer Added Detection was performed. COMPARISON: Comparison is made with prior study dated August 10, 2012. FINDINGS: Breast Composition: There are scattered areas of fibroglandular density. There are no dominant masses or suspicious calcifications. Stable benign-appearing bilateral axillary lymph nodes. No other significant abnormalities are identified. There has been no significant change since the prior study. BI/SCREEN MAMM (CAD) W/SHAYY BILAT IMPRESSION: Stable bilateral screening mammogram. Yearly follow-up mammogram recommended. (A) ASSESSMENT CATEGORY: BIRADS Category 2: Benign. A letter regarding these results will be sent to the patient by the facility within 30 days. Approximately 10% of breast cancers are not detected by mammography. A normal mammogram should not delay biopsy of a clinically suspicious abnormality. [id number] Electronically Signed: Ariel Cleveland, at 15:28 EDT , Service support ,
== END ==
PROVIDERS: Family Provider Family Medicine; PCP Family Medicine; Referring Provider Nurse Practitioner Family; Visit Provider Nurse Practitioner Family
DX: Z12.31 Encounter for screening mammogram for malignant neoplasm of breast (principal); Z12.2 Encounter for screening for malignant neoplasm of respiratory organs; Z87.891 Personal history of nicotine dependence; J44.9 Chronic obstructive pulmonary disease, unspecified
CPT/HCPCS: 77063; 77067; G0297

== ENCOUNTER → 2019-04-26 08:09 | Outpatient (CLI) | payer MEDICARE, OTHER, SELFPAY ==
[2018-12-27 09:04] VITALS: BMI 41.5
[2019-04-26 08:49] LABS: Absolute Lymphocyte Count 1.23 X10^3/uL (0.83-4.51); Absolute Neutrophil Count 5.6 X10^3/uL (2.0-7.7); Basophil# 0.02 X10^3/uL; Basophil% 0.3 % (0-1); Hematocrit 43.2 % (37-47); Hemoglobin 13.9 g/dL (12.0-15.0); Lymphocyte # 1.23 X10^3/ul (4.0); Lymphocyte % 16.2 % (19-41); Mean Corp Hgb Conc 32.2 g/dL (32-36); Mean Corpuscular Hgb 29.2 pg (27.0-32.0); Mean Corpuscular Volume 90.8 fL (81-99); Mean Platelet Vol. 11.4 fl (6.2-12.0); Monocyte% 9.2 % (0-10); NRBC Flagged by Analyzer 0 % (0-5); Neutrophil # 5.58 X10^3/uL (2.7-7.7); Neutrophil % 73.8 % (47-70); Platelet Count 216 K/mm3 (150-450); RBC Distribution Width CV 14.4 % (11.6-14.6); RBC Distribution Width SD 47.8 fl (35.1-43.9); Red Blood Count 4.76 M/mm3 (4.2-5.4); White Blood Count 7.6 K/mm3 (4.4-11.0)
[2019-04-26 09:14] LABS: Microalbumin,Random Urine 6.6 mg/L (NO RANGE EST.); Microalbumin:Creatinine Ratio 4.1 mg/g CRE (<30 mg/g CRE)
[2019-04-26 09:18] LABS: ALB/GLOB Ratio 0.9 RATIO (0.9-2.4); AST(SGOT) 34 U/L (15-37); Alanine Aminotransfer ALT/SGPT 63 U/L (13-56); Albumin, Serum 3.5 g/dL (3.2-5.0); Alkaline Phosphatase 84 U/L (45-117); Anion Gap 3 (5-15); BUN 12 mg/dL (7-18); BUN/Creat Ratio 13.2 RATIO (10-20); Chloride 105 mmol/L (98-107); Cholesterol 176 mg/dL (200); Creatinine, Serum 0.91 mg/dL (0.55-1.02); EST Glomerular Filtration Rate 65 mL/min (>60); Est Glom Filt Rate - Afr Amer 79 mL/min (>60); Globulin 3.9 g/dL (2.2-4.2); Glucose 116 mg/dL (74-106); High Density Lipoprotein 44 mg/dL; Potassium 3.9 mmol/L (3.5-5.1); Protein, Total 7.4 g/dL (6.4-8.2); Sodium Level 138 mmol/L (136-145); T4 Free Direct 1.28 ng/dL (0.76-1.46); Thyroid Stim Hormone (TSH) 2.78 uIU/mL (0.358-3.74); Triglycerides 119 mg/dL; Very Low Density Lipoprotein 24 mg/dL (5-40)
[2019-04-26 10:19] LABS: Hemoglobin A1c 6.8 % (4.2-6.3)
== END ==
PROVIDERS: PCP Family Medicine; Referring Provider Family Medicine; Visit Provider Family Medicine
DX: E03.9 Hypothyroidism, unspecified (principal); E11.9 Type 2 diabetes mellitus without complications
CPT/HCPCS: 80053; 80061; 82043; 82570; 83036; 84439; 84443; 85025

== ENCOUNTER → 2019-08-24 09:46 | Outpatient (CLI) | payer MEDICARE, OTHER, SELFPAY ==
[2019-07-19 07:55] VITALS: BMI 41.5
--- NOTE | 2019-08-24 09:50 | RAD_ITS ---
STUDY: X-RAY - LEFT HAND REASON FOR EXAM: Female, 68 years old. Inflammatory polyarthropathy TECHNIQUE: 3 view(s) of the hand. COMPARISON: 2012 FINDINGS: When compared to the previous study, there has been previous removal of the trapezium. Normal radiocarpal articulation. Normal distal radioulnar joint. Normal visualized carpal bones. Normal carpal articulations Normal carpometacarpal articulation of the thumb. Normal second through fifth carpometacarpal joints. Normal metacarpi. Normal metacarpophalangeal joint of the thumb. Normal interphalangeal joint of the thumb. Normal proximal and distal phalanges of the thumb. Normal metacarpophalangeal joints of the second through fifth fingers. There is diffuse articular joint space narrowing of the proximal and distal interphalangeal joints of the second through fifth fingers, but without erosive changes or periarticular soft tissue swelling. Gullwing deformities are noted with subtle subchondral changes noted in the PIP joints of the second third and fourth digits. Normal phalanges of the second through fifth fingers. The soft tissue structures are unremarkable. RAD/Hand Min 3 Views IMPRESSION: Since the previous study, there has been removal of the trapezium. Extensive PIP and DIP joint arthrosis which has progressed significantly since the previous study with subchondral changes noted in the PIP joints of the second third and fourth digits. The distal joint arthrosis is also more advanced in the left hand than the right Electronically Signed: Christo Jj MD at 10:15 EDT , Service support ,
--- NOTE | 2019-08-24 09:50 | RAD_ITS ---
STUDY: X-RAY - RIGHT HAND REASON FOR EXAM: Female, 68 years old. Inflammatory polyarthropathy TECHNIQUE: 3 view(s) of the hand. COMPARISON: None. FINDINGS: Normal radiocarpal articulation. Normal distal radioulnar joint. Normal visualized carpal bones. Normal carpal articulations There is degenerative arthrosis of the carpometacarpal articulation of the thumb with lateral subluxation of the first metacarpus. Normal second through fifth carpometacarpal joints. Normal metacarpi. Normal metacarpophalangeal joint of the thumb. Normal interphalangeal joint of the thumb. Normal proximal and distal phalanges of the thumb. Normal metacarpophalangeal joints of the second through fifth fingers. There is diffuse articular joint space narrowing of the proximal and distal interphalangeal joints of the second through fifth fingers, but without erosive changes or periarticular soft tissue swelling. Early gullwing deformities are noted most notably at the PIP joint of the third digit with there are also subchondral erosions. Normal phalanges of the second through fifth fingers. The soft tissue structures are unremarkable. 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 Subchondral changes noted at the PIP joint of the third digit Electronically Signed: Christo Jj MD at 10:13 EDT , Service support ,
[2019-08-24 12:25] LABS: Erythrocyte Sedimentation Rate 24 mm/hr (0-30)
[2019-08-24 12:31] LABS: Absolute Lymphocyte Count 1.33 X10^3/uL (0.83-4.51); Absolute Neutrophil Count 6.2 X10^3/uL (2.0-7.7); Basophil# 0.04 X10^3/uL; Basophil% 0.5 % (0-1); Hematocrit 45.7 % (37-47); Hemoglobin 14.3 g/dL (12.0-15.0); Lymphocyte # 1.33 X10^3/ul (4.0); Mean Corp Hgb Conc 31.3 g/dL (32-36); Mean Corpuscular Hgb 29.4 pg (27.0-32.0); Monocyte# 0.66 X10^3/uL; Monocyte% 7.9 % (0-10); NRBC Flagged by Analyzer 0 % (0-5); Neutrophil # 6.22 X10^3/uL (2.7-7.7); Neutrophil % 74.8 % (47-70); Platelet Count 251 K/mm3 (150-450); RBC Distribution Width CV 14.7 % (11.6-14.6); RBC Distribution Width SD 50.5 fl (35.1-43.9); Red Blood Count 4.86 M/mm3 (4.2-5.4); White Blood Count 8.3 K/mm3 (4.4-11.0)
[2019-08-24 12:57] LABS: ALB/GLOB Ratio 0.8 RATIO (0.9-2.4); AST(SGOT) 29 U/L (15-37); Alanine Aminotransfer ALT/SGPT 56 U/L (13-56); Albumin, Serum 3.4 g/dL (3.2-5.0); Alkaline Phosphatase 85 U/L (45-117); Anion Gap 4 (5-15); BUN 12 mg/dL (7-18); BUN/Creat Ratio 14.8 RATIO (10-20); CRP 7.34 mg/L (0.0-3.0); Calcium,Total 9.4 mg/dL (8.5-10.1); Chloride 105 mmol/L (98-107); Creatinine, Serum 0.81 mg/dL (0.55-1.02); EST Glomerular Filtration Rate 75 mL/min (>60); Est Glom Filt Rate - Afr Amer 91 mL/min (>60); Globulin 4.1 g/dL (2.2-4.2); Glucose 101 mg/dL (74-106); Potassium 3.6 mmol/L (3.5-5.1); Protein, Total 7.5 g/dL (6.4-8.2); Rheumatoid Factor < 10.0 IU/mL (<15); Sodium Level 140 mmol/L (136-145)
[2019-08-24 13:16] LABS: Hepatitis B Surface Antibody Non-Reactive; Hepatitis B Surface Antigen Non-Reactive (Nonreactive); Hepatitis C Antibody Non-Reactive (Nonreactive)
[2019-08-25 15:19] LABS: ANTINUCLEAR ANTIBODIES DIRECT Positive (Negative)
[2019-08-26 12:21] LABS: CCP IgG Antibodies 7 units (0-19); Hepatitis B Core AB IgM Negative (Negative)
== END ==
PROVIDERS: PCP Family Medicine; Referring Provider Internal Medicine Rheumatology; Visit Provider Internal Medicine Rheumatology
DX: M06.4 Inflammatory polyarthropathy (principal); M18.0 Bilateral primary osteoarthritis of first carpometacarpal joints; K21.9 Gastro-esophageal reflux disease without esophagitis; I10 Essential (primary) hypertension; E03.9 Hypothyroidism, unspecified; J44.9 Chronic obstructive pulmonary disease, unspecified; G43.909 Migraine, unspecified, not intractable, without status migrainosus; G47.33 Obstructive sleep apnea (adult) (pediatric)
CPT/HCPCS: 36415; 73130; 80053; 85025; 85652; 86038; 86140; 86200; 86431; 86705; 86706; 86803; 87340

== ENCOUNTER → 2019-09-04 08:12 | Outpatient (CLI) | payer MEDICARE, OTHER, SELFPAY ==
[2019-07-19 07:55] VITALS: BMI 41.5
[2019-09-04 09:20] LABS: EXAGEN MAILED SPECIMEN
[2019-09-04 09:52] LABS: Color, Urine Yellow (Yellow); Glucose, Dipstick Normal (Normal); Ketone-Dipstick Negative (Negative); Leukocyte Esterase-Dipstick Negative /ul (Negative); Nitrite-Dipstick Negative (Negative); Occult Blood-Urine Negative /ul (Negative); Protein-Dipstick Negative (Negative); Urine Bilirubin Dipstick Negative (Negative); Urine Clarity Sl. Cloudy (Clear); Urine Urobilinogen Normal (Normal)
[2019-09-04 10:04] LABS: Protein, Urine (Random) < 6.0 mg/dL (<11.9)
== END ==
PROVIDERS: PCP Family Medicine; Referring Provider Internal Medicine Rheumatology; Visit Provider Internal Medicine Rheumatology
DX: M06.4 Inflammatory polyarthropathy (principal); M18.0 Bilateral primary osteoarthritis of first carpometacarpal joints; K21.9 Gastro-esophageal reflux disease without esophagitis; I10 Essential (primary) hypertension; E03.9 Hypothyroidism, unspecified; J44.9 Chronic obstructive pulmonary disease, unspecified; G43.909 Migraine, unspecified, not intractable, without status migrainosus; G47.33 Obstructive sleep apnea (adult) (pediatric)
CPT/HCPCS: 81002; 82570; 84156

== ENCOUNTER → 2019-11-10 07:43 | Outpatient (CLI) | payer MEDICARE, OTHER, SELFPAY ==
[2019-07-19 07:55] VITALS: BMI 41.5
--- NOTE | 2019-11-10 07:44 | CT_ITS ---
STUDY: LOW DOSE CT LUNG CANCER SCREENING REASON FOR EXAM: Female, 68 years old. FORMER SMOKER 1 PPD X 35-40 YEARS. H/O ASTHMA, COPD. RADIATION DOSAGE (If Supplied By Facility): CTDIvol = ( 4.02 ) mGy, DLP = ( 157.03 ) mGycm TECHNIQUE: No contrast was administered. Low dose technique was utilized (average mAS-38 and kVp 120). 1.25 mm axial source images with a slice interval of 1.25-mm were reconstructed in lung windows. 2.5 mm axial source images with a slice interval of 2.5-mm were reconstructed in lung windows. 5.0 mm axial source images with a slice interval of 5.0-mm were reconstructed in soft tissue windows. Nodule measured using lung windows on PACS and/or independent workstation with automated measurement of minimum and maximum diameter. Nodule measurement reported as average diameter rounded to the nearest whole number. Growth is defined as an increase ins size of greater than 1.5 mm. COMPARISON: Comparison is made with prior study dated 11/08/2018. NODULES: There is a 6.5 mm noncalcified nodule in the superior segment of the left lower lobe. This has increased slightly in size as compared to prior study. Correlation with a PET scan is recommended. Emphysema: Mild degree of emphysematous changes. Endobronchial lesion: None Aorta: Atherosclerotic calcification. Coronary arteries: Coronary artery calcification. Mediastinal nodes: Small benign-appearing mediastinal lymph nodes. Other chest and abdominal findings: CT/Low Dose CT Lung Screening IMPRESSION: Lung-RADS category 4A - Screening at 3 months wiht LDCT or evaluation with PET/CT may be used. IMPORTANT NOTES FOR USE: ACR Lung-RADS Version 1.0 Assessment Categories Release Date: June 26, 2013 Category: Coded 0-4 bases on nodule(s) with highest degree of suspicion. Negative screen is defined as categories 1 and 2; a positive screen is defined as categories 3 and 4. Category 3 and 4A nodules that are unchanged on interval CT should be coded as category 2, and individuals returned to screening in 12 months. Category 4X: Category 3 or 4 nodules with additional imaging findings that increase the suspicion of lung cancer, such as spiculation, GGN that doubles in size in 1 year, enlarged lymph notes, etc. Category Modifiers: S (significant finding unrelated to lung cancer) and C (prior history of treated lung cancer) may be added to the 0-4 Lung-RADS Electronically Signed: Ariel Cleveland, at 10:30 EDT , Service support ,
== END ==
PROVIDERS: PCP Family Medicine; Referring Provider Family Medicine; Visit Provider Family Medicine
DX: Z12.2 Encounter for screening for malignant neoplasm of respiratory organs (principal); Z87.891 Personal history of nicotine dependence
CPT/HCPCS: G0297

== ENCOUNTER → 2019-12-20 09:54 | Outpatient (CLI) | payer MEDICARE, OTHER, SELFPAY ==
[2019-07-19 07:55] VITALS: BMI 41.5
[2019-12-20 12:38] LABS: ALB/GLOB Ratio 0.8 RATIO (0.9-2.4); AST(SGOT) 23 U/L (15-37); Alanine Aminotransfer ALT/SGPT 35 U/L (13-56); Albumin, Serum 3.4 g/dL (3.2-5.0); Alkaline Phosphatase 69 U/L (45-117); Anion Gap 5 (5-15); BUN 10 mg/dL (7-18); BUN/Creat Ratio 11.4 RATIO (10-20); Chloride 104 mmol/L (98-107); Creatinine, Serum 0.87 mg/dL (0.55-1.02); EST Glomerular Filtration Rate 68 mL/min (>60); Est Glom Filt Rate - Afr Amer 83 mL/min (>60); Globulin 4.1 g/dL (2.2-4.2); Glucose 95 mg/dL (74-106); Potassium 3.4 mmol/L (3.5-5.1); Protein, Total 7.5 g/dL (6.4-8.2); Sodium Level 139 mmol/L (136-145)
[2019-12-20 12:49] LABS: Absolute Lymphocyte Count 1.47 X10^3/uL (0.83-4.51); Absolute Neutrophil Count 6.8 X10^3/uL (2.0-7.7); Basophil# 0.03 X10^3/uL; Basophil% 0.3 % (0-1); Eosinophil# 0.02 X10^3/uL; Eosinophils% 0.2 % (0-5); Hematocrit 41.7 % (37-47); Hemoglobin 13.2 g/dL (12.0-15.0); Lymphocyte # 1.47 X10^3/ul (4.0); Lymphocyte % 16.1 % (19-41); Mean Corp Hgb Conc 31.7 g/dL (32-36); Mean Corpuscular Hgb 28.9 pg (27.0-32.0); Mean Corpuscular Volume 91.4 fL (81-99); Monocyte# 0.76 X10^3/uL; Monocyte% 8.3 % (0-10); NRBC Flagged by Analyzer 0 % (0-5); Neutrophil % 74.3 % (47-70); Platelet Count 258 K/mm3 (150-450); RBC Distribution Width CV 14.6 % (11.6-14.6); RBC Distribution Width SD 48.5 fl (35.1-43.9); Red Blood Count 4.56 M/mm3 (4.2-5.4); White Blood Count 9.2 K/mm3 (4.4-11.0)
== END ==
PROVIDERS: PCP Family Medicine; Referring Provider Internal Medicine Rheumatology; Visit Provider Internal Medicine Rheumatology
DX: M06.4 Inflammatory polyarthropathy (principal); M35.00 Sjogren syndrome, unspecified; M18.0 Bilateral primary osteoarthritis of first carpometacarpal joints; K21.9 Gastro-esophageal reflux disease without esophagitis; I10 Essential (primary) hypertension; E03.9 Hypothyroidism, unspecified; J44.9 Chronic obstructive pulmonary disease, unspecified
CPT/HCPCS: 36415; 80053; 85025

== ENCOUNTER → 2020-01-22 12:55 | Outpatient (CLI) | payer MEDICARE, OTHER, SELFPAY ==
[2019-12-28 08:08] VITALS: BMI 40.6
[2020-01-22 13:14] VITALS: BP 150/84; PULSE 67; RESP 18; TEMP 36.7; O2SAT 95; BMI 39.9
[2020-01-22] MEDS: Omalizumab 150 MG/ML Syringe SQ ×2 (13:20)
[2020-01-22 15:33] VITALS: BP 146/78; PULSE 80; RESP 18; TEMP 35.9; O2SAT 94
== END ==
PROVIDERS: PCP Family Medicine; Referring Provider Nurse Practitioner Acute Care; Visit Provider Nurse Practitioner Acute Care
DX: J45.41 Moderate persistent asthma with (acute) exacerbation (principal)
CPT/HCPCS: 96372; J2357

== ENCOUNTER → 2020-02-19 13:00 | Outpatient (CLI) | payer MEDICARE, OTHER, SELFPAY ==
[2019-12-28 08:08] VITALS: BMI 40.6
[2020-01-22 13:14] VITALS: BMI 39.9
[2020-02-19 13:14] VITALS: BP 167/83; PULSE 101; RESP 18; TEMP 36.4; O2SAT 93; BMI 39.9
[2020-02-19] MEDS: Omalizumab 150 MG/ML Syringe SQ ×2 (13:32)
[2020-02-19 14:02] VITALS: BP 125/74; PULSE 85
== END ==
PROVIDERS: PCP Family Medicine; Referring Provider Nurse Practitioner Acute Care; Visit Provider Nurse Practitioner Acute Care
DX: J45.41 Moderate persistent asthma with (acute) exacerbation (principal)
CPT/HCPCS: 96372; J2357

== ENCOUNTER → 2020-02-20 13:29 | Outpatient (CLI) | payer MEDICARE, OTHER, SELFPAY ==
[2020-01-22 13:14] VITALS: BMI 39.9
[2020-02-19 13:14] VITALS: BMI 39.9
--- NOTE | 2020-02-20 13:36 | CT_ITS ---
STUDY: CT CHEST WITHOUT CONTRAST REASON FOR EXAM: Female, 69 years old. 6.5MM SLIGHTLY LARGER NODULE FOLLOW UP, PREV SMOKER, QUIT 11 YRS AGO, HX-COPD, ASTHMA, HTN RADIATION DOSAGE (If Supplied By Facility): CTDIvol = ( 16.55 ) mGy, DLP = ( 578.24 ) mGycm TECHNIQUE: Transaxial imaging was performed without the administration of intravenous contrast material. Multiplanar coronal and sagittal images were reformatted. Individualized dose optimization techniques were used for this CT. COMPARISON: Comparison is made with prior study dated 11/10/2019. FINDINGS: Stable mild linear scarring at the lung apices. Stable emphysematous changes more prominent in the upper lobes. A stable 6.8 mm noncalcified nodule in the posterior aspect of the superior segment of the left lower lobe. There is no demonstrated pleural abnormality. There are calcifications of the coronary arteries. There are multiple small lymph nodes within the mediastinum, which are normal in size and morphology most compatible with reactive lymph hyperplasia. Normal hilar regions. Normal unenhanced pulmonary arteries. There is atherosclerotic calcification of the aortic arch with tortuosity and elongation of the aortic arch and descending thoracic aorta. Normal osseous structures. There is no demonstrated abnormality of the visualized upper abdomen. CT/Chest without Contrast IMPRESSION: Stable examination. 6 month follow-up examination is recommended. Electronically Signed: Ariel Cleveland, at 15:10 EST , Service support ,
== END ==
PROVIDERS: PCP Family Medicine; Referring Provider Nurse Practitioner Acute Care; Visit Provider Nurse Practitioner Acute Care
DX: R91.1 Solitary pulmonary nodule (principal)
CPT/HCPCS: 71250

== ENCOUNTER → 2020-03-14 10:29 | Outpatient (CLI) | payer MEDICARE, OTHER, SELFPAY ==
[2020-02-26 09:12] VITALS: BMI 40.6
[2020-03-14 12:16] LABS: Absolute Lymphocyte Count 0.98 X10^3/uL (0.83-4.51); Absolute Neutrophil Count 5.1 X10^3/uL (2.0-7.7); Basophil# 0.03 X10^3/uL; Basophil% 0.4 % (0-1); Eosinophil# 0.01 X10^3/uL; Eosinophils% 0.1 % (0-5); Lymphocyte # 0.98 X10^3/ul (4.0); Lymphocyte % 14.5 % (19-41); Mean Corpuscular Hgb 28.4 pg (27.0-32.0); Mean Corpuscular Volume 91.7 fL (81-99); Mean Platelet Vol. 11.8 fl (6.2-12.0); Monocyte# 0.57 X10^3/uL; Monocyte% 8.4 % (0-10); NRBC Flagged by Analyzer 0 % (0-5); Neutrophil # 5.13 X10^3/uL (2.7-7.7); Platelet Count 224 K/mm3 (150-450); RBC Distribution Width CV 13.8 % (11.6-14.6); RBC Distribution Width SD 46.7 fl (35.1-43.9); Red Blood Count 4.58 M/mm3 (4.2-5.4); White Blood Count 6.8 K/mm3 (4.4-11.0)
[2020-03-14 12:35] LABS: ALB/GLOB Ratio 0.9 RATIO (0.9-2.4); AST(SGOT) 17 U/L (15-37); Alanine Aminotransfer ALT/SGPT 27 U/L (13-56); Albumin, Serum 3.4 g/dL (3.2-5.0); Alkaline Phosphatase 83 U/L (45-117); Anion Gap 4 (5-15); BUN 12 mg/dL (7-18); BUN/Creat Ratio 13.2 RATIO (10-20); Chloride 105 mmol/L (98-107); Creatinine, Serum 0.91 mg/dL (0.55-1.02); EST Glomerular Filtration Rate 65 mL/min (>60); Est Glom Filt Rate - Afr Amer 79 mL/min (>60); Globulin 3.9 g/dL (2.2-4.2); Glucose 101 mg/dL (74-106); Potassium 3.7 mmol/L (3.5-5.1); Protein, Total 7.3 g/dL (6.4-8.2); Sodium Level 138 mmol/L (136-145)
== END ==
PROVIDERS: PCP Family Medicine; Referring Provider Internal Medicine Rheumatology; Visit Provider Internal Medicine Rheumatology
DX: M06.4 Inflammatory polyarthropathy (principal); M35.00 Sjogren syndrome, unspecified; M18.0 Bilateral primary osteoarthritis of first carpometacarpal joints; K21.9 Gastro-esophageal reflux disease without esophagitis; I10 Essential (primary) hypertension; E03.9 Hypothyroidism, unspecified; J44.9 Chronic obstructive pulmonary disease, unspecified; G43.909 Migraine, unspecified, not intractable, without status migrainosus; G47.33 Obstructive sleep apnea (adult) (pediatric)
CPT/HCPCS: 36415; 80053; 85025

== ENCOUNTER → 2020-03-18 12:54 | Outpatient (CLI) | payer MEDICARE, OTHER, SELFPAY ==
[2020-01-22 13:14] VITALS: BMI 39.9
[2020-02-26 09:12] VITALS: BMI 40.6
[2020-03-18 12:50] VITALS: BP 150/68; PULSE 96; RESP 16; TEMP 36.6; O2SAT 95; BMI 39.9
[2020-03-18] MEDS: Omalizumab 150 MG/ML Syringe SQ ×2 (13:03→13:04)
[2020-03-18 13:35] VITALS: BP 125/63; PULSE 82
== END ==
PROVIDERS: PCP Family Medicine; Referring Provider Nurse Practitioner Acute Care; Visit Provider Nurse Practitioner Acute Care
DX: J45.40 Moderate persistent asthma, uncomplicated (principal)
CPT/HCPCS: 96372; J2357

== ENCOUNTER 2020-04-15 12:54 | Outpatient (CLI) | payer MEDICARE, OTHER, SELFPAY ==
[2020-02-26 09:12] VITALS: BMI 40.6
[2020-03-18 12:50] VITALS: BMI 39.9
[2020-04-15] MEDS: Omalizumab 150 MG/ML Syringe SQ ×2 (13:12→13:13)
[2020-04-15 13:18] VITALS: BP 142/78; PULSE 75; RESP 16; TEMP 36.3; O2SAT 98; BMI 39.9
[2020-04-15 13:41] VITALS: BP 130/73; PULSE 68; RESP 16; TEMP 36.3; O2SAT 93
== END 2020-04-15 15:00 ==
LOC: MEDOUTP 12:54
PROVIDERS: PCP Family Medicine; Referring Provider Nurse Practitioner Acute Care; Visit Provider Nurse Practitioner Acute Care
DX: J45.41 Moderate persistent asthma with (acute) exacerbation (principal)
CPT/HCPCS: 96372; J2357

== ENCOUNTER 2020-05-13 12:51 | Outpatient (CLI) | payer MEDICARE, OTHER, SELFPAY ==
[2020-03-18 12:50] VITALS: BMI 39.9
[2020-05-13 13:26] VITALS: BP 142/79; PULSE 77; RESP 16; TEMP 35.8; O2SAT 95; BMI 39.9
[2020-05-13] MEDS: Omalizumab 150 MG/ML Syringe 300 MG SQ (13:31)
== END 2020-05-13 16:00 | disposition home or self-care (01) ==
LOC: MEDOUTP 12:52
PROVIDERS: PCP Family Medicine; Referring Provider Nurse Practitioner Acute Care; Visit Provider Nurse Practitioner Acute Care
DX: J45.41 Moderate persistent asthma with (acute) exacerbation (principal)
CPT/HCPCS: 96372; J2357

== ENCOUNTER → 2020-05-30 10:20 | Outpatient (CLI) | payer MEDICARE, OTHER, SELFPAY ==
[2020-05-13 13:26] VITALS: BMI 39.9
[2020-05-30 12:23] LABS: Absolute Lymphocyte Count 1.04 X10^3/uL (0.83-4.51); Absolute Neutrophil Count 4.9 X10^3/uL (2.0-7.7); Basophil# 0.03 X10^3/uL; Basophil% 0.5 % (0-1); Hematocrit 43.7 % (37-47); Hemoglobin 13.6 g/dL (12.0-15.0); Lymphocyte # 1.04 X10^3/ul (4.0); Mean Corp Hgb Conc 31.1 g/dL (32-36); Mean Corpuscular Hgb 28.5 pg (27.0-32.0); Mean Corpuscular Volume 91.4 fL (81-99); Mean Platelet Vol. 11.9 fl (6.2-12.0); Monocyte# 0.48 X10^3/uL; Monocyte% 7.4 % (0-10); NRBC Flagged by Analyzer 0 % (0-5); Neutrophil # 4.93 X10^3/uL (2.7-7.7); Neutrophil % 75.5 % (47-70); Platelet Count 239 K/mm3 (150-450); RBC Distribution Width CV 14.1 % (11.6-14.6); RBC Distribution Width SD 47.7 fl (35.1-43.9); Red Blood Count 4.78 M/mm3 (4.2-5.4); White Blood Count 6.5 K/mm3 (4.4-11.0)
[2020-05-30 12:39] LABS: ALB/GLOB Ratio 0.9 RATIO (0.9-2.4); AST(SGOT) 18 U/L (15-37); Alanine Aminotransfer ALT/SGPT 23 U/L (13-56); Albumin, Serum 3.4 g/dL (3.2-5.0); Alkaline Phosphatase 83 U/L (45-117); Anion Gap 7 (5-15); BUN 10 mg/dL (7-18); BUN/Creat Ratio 10.9 RATIO (10-20); Calcium,Total 9.2 mg/dL (8.5-10.1); Chloride 104 mmol/L (98-107); Creatinine, Serum 0.92 mg/dL (0.55-1.02); EST Glomerular Filtration Rate 64 mL/min (>60); Est Glom Filt Rate - Afr Amer 78 mL/min (>60); Globulin 3.8 g/dL (2.2-4.2); Glucose 118 mg/dL (74-106); Potassium 3.6 mmol/L (3.5-5.1); Protein, Total 7.2 g/dL (6.4-8.2); Sodium Level 140 mmol/L (136-145)
== END ==
PROVIDERS: PCP Family Medicine; Referring Provider Internal Medicine Rheumatology; Visit Provider Internal Medicine Rheumatology
DX: M06.4 Inflammatory polyarthropathy (principal); M35.00 Sjogren syndrome, unspecified; M18.0 Bilateral primary osteoarthritis of first carpometacarpal joints; K21.9 Gastro-esophageal reflux disease without esophagitis; I10 Essential (primary) hypertension; E03.9 Hypothyroidism, unspecified; J44.9 Chronic obstructive pulmonary disease, unspecified; G43.909 Migraine, unspecified, not intractable, without status migrainosus; G47.33 Obstructive sleep apnea (adult) (pediatric); Z79.899 Other long term (current) drug therapy
CPT/HCPCS: 36415; 80053; 85025

== ENCOUNTER → 2020-06-10 12:52 | Outpatient (CLI) | payer MEDICARE, OTHER, SELFPAY ==
[2020-05-13 13:26] VITALS: BMI 39.9
[2020-06-10 13:00] VITALS: BP 158/81; PULSE 92; RESP 16; TEMP 36.1; O2SAT 96; BMI 39.9
[2020-06-10] MEDS: Omalizumab 150 MG/ML Syringe 300 MG SQ (13:02)
[2020-06-10 13:45] VITALS: BP 139/77
== END ==
PROVIDERS: PCP Family Medicine; Referring Provider Nurse Practitioner Acute Care; Visit Provider Nurse Practitioner Acute Care
DX: J45.41 Moderate persistent asthma with (acute) exacerbation (principal)
CPT/HCPCS: 96372; J2357

== ENCOUNTER → 2020-07-02 09:43 | Outpatient (CLI) | payer MEDICARE, OTHER, SELFPAY ==
[2020-06-10 13:00] VITALS: BMI 39.9
[2020-07-02 12:21] LABS: Absolute Lymphocyte Count 1.01 X10^3/uL (0.83-4.51); Absolute Neutrophil Count 4.7 X10^3/uL (2.0-7.7); Basophil# 0.03 X10^3/uL; Basophil% 0.5 % (0-1); Hematocrit 42.3 % (37-47); Lymphocyte # 1.01 X10^3/ul (0.83-4.51); Lymphocyte % 15.9 % (19-41); Mean Corp Hgb Conc 30.7 g/dL (32-36); Mean Corpuscular Hgb 27.8 pg (27.0-32.0); Mean Corpuscular Volume 90.4 fL (81-99); Mean Platelet Vol. 11.5 fl (6.2-12.0); Monocyte# 0.63 X10^3/uL; Monocyte% 9.9 % (0-10); NRBC Flagged by Analyzer 0 % (0-5); Neutrophil # 4.68 X10^3/uL (2.7-7.7); Neutrophil % 73.4 % (47-70); Platelet Count 223 K/mm3 (150-450); RBC Distribution Width CV 14.7 % (11.6-14.6); RBC Distribution Width SD 48.7 fl (35.1-43.9); Red Blood Count 4.68 M/mm3 (4.2-5.4); White Blood Count 6.4 K/mm3 (4.4-11.0)
[2020-07-02 12:48] LABS: AST(SGOT) 19 U/L (15-37); Alanine Aminotransfer ALT/SGPT 28 U/L (13-56); Albumin, Serum 3.5 g/dL (3.2-5.0); Alkaline Phosphatase 84 U/L (45-117); Anion Gap 5 (5-15); BUN 13 mg/dL (7-18); Calcium,Total 8.8 mg/dL (8.5-10.1); Chloride 104 mmol/L (98-107); Creatinine, Serum 0.87 mg/dL (0.55-1.02); EST Glomerular Filtration Rate 69 mL/min (>60); Est Glom Filt Rate - Afr Amer 83 mL/min (>60); Globulin 3.6 g/dL (2.2-4.2); Glucose 86 mg/dL (74-106); Potassium 3.4 mmol/L (3.5-5.1); Protein, Total 7.1 g/dL (6.4-8.2); Sodium Level 138 mmol/L (136-145); Thyroid Stim Hormone (TSH) 3.13 uIU/mL (0.358-3.74)
== END ==
PROVIDERS: PCP Family Medicine; Referring Provider Internal Medicine Rheumatology; Visit Provider Internal Medicine Rheumatology
DX: M06.4 Inflammatory polyarthropathy (principal); M35.00 Sjogren syndrome, unspecified; M18.0 Bilateral primary osteoarthritis of first carpometacarpal joints; K21.9 Gastro-esophageal reflux disease without esophagitis; I10 Essential (primary) hypertension; E03.9 Hypothyroidism, unspecified; J44.9 Chronic obstructive pulmonary disease, unspecified; G43.909 Migraine, unspecified, not intractable, without status migrainosus; G47.33 Obstructive sleep apnea (adult) (pediatric); E11.9 Type 2 diabetes mellitus without complications; Z79.899 Other long term (current) drug therapy
CPT/HCPCS: 36415; 80053; 83036; 84443; 85025

== ENCOUNTER → 2020-07-08 12:52 | Outpatient (CLI) | payer MEDICARE, OTHER, SELFPAY ==
[2020-06-10 13:00] VITALS: BMI 39.9
[2020-07-08 13:07] VITALS: BP 149/66; PULSE 88; RESP 16; TEMP 35.8; O2SAT 98; BMI 39.9
[2020-07-08] MEDS: Omalizumab 150 MG/ML Syringe 300 MG SQ (13:10)
== END ==
PROVIDERS: PCP Family Medicine; Referring Provider Nurse Practitioner Acute Care; Visit Provider Nurse Practitioner Acute Care
DX: J45.41 Moderate persistent asthma with (acute) exacerbation (principal)
CPT/HCPCS: 96372; J2357

== ENCOUNTER → 2020-08-05 12:50 | Outpatient (CLI) | payer MEDICARE, OTHER, SELFPAY ==
[2020-06-10 13:00] VITALS: BMI 39.9
[2020-07-08 13:07] VITALS: BMI 39.9
[2020-08-05 13:10] VITALS: BP 147/76; PULSE 78; RESP 16; TEMP 35.8; O2SAT 95; BMI 39.9
[2020-08-05] MEDS: Omalizumab 150 MG/ML Syringe 300 MG SQ (13:37)
== END ==
PROVIDERS: PCP Family Medicine; Referring Provider Nurse Practitioner Acute Care; Visit Provider Nurse Practitioner Acute Care
DX: J45.41 Moderate persistent asthma with (acute) exacerbation (principal)
CPT/HCPCS: 96372; J2357

== ENCOUNTER → 2020-08-31 09:53 | Outpatient (CLI) | payer MEDICARE, OTHER, SELFPAY ==
[2020-08-05 13:10] VITALS: BMI 39.9
--- NOTE | 2020-08-31 09:57 | CT_ITS ---
STUDY: CT CHEST WITHOUT CONTRAST REASON FOR EXAM: Female, 69 years old. known nodule RADIATION DOSAGE (If Supplied By Facility): CTDIvol = ( 18.15 ) mGy, DLP = ( 707.69 ) mGycm TECHNIQUE: Transaxial imaging was performed without the administration of intravenous contrast material. Individualized dose optimization techniques were used for this CT. COMPARISON: 02/20/2020 FINDINGS: Mild emphysematous changes. There is no change in the 6 mm noncalcified nodule in the superior segment left lower lobe the lungs on image 64 and follow-up CT in 6 months would document 2 years of stability. No new noncalcified nodule or mass. There is no demonstrated pleural abnormality. Normal heart and pericardium. There are calcifications of the coronary arteries. Normal mediastinum. Normal hilar regions. Normal unenhanced pulmonary arteries. Normal aorta arch and descending thoracic aorta. Normal osseous structures. There is no demonstrated abnormality of the visualized upper abdomen. CT/Chest without Contrast IMPRESSION: No change in noncalcified nodule in the superior segment left lower lobe and follow-up CT is recommended in 6 months to document 2 years of stability. Electronically Signed: Amari Buck MD at 13:59 EDT Tel , Service support ,
== END ==
PROVIDERS: PCP Family Medicine; Referring Provider Nurse Practitioner Acute Care; Visit Provider Nurse Practitioner Acute Care
DX: R91.1 Solitary pulmonary nodule (principal)
CPT/HCPCS: 71250

== ENCOUNTER → 2020-09-04 14:55 | Outpatient (CLI) | payer MEDICARE, OTHER, SELFPAY ==
[2020-07-08 13:07] VITALS: BMI 39.9
[2020-09-03 06:07] VITALS: BMI 40.9
[2020-09-04] MEDS: Omalizumab 150 MG/ML Syringe 300 MG SQ (15:07)
[2020-09-04 15:12] VITALS: BP 150/73; PULSE 80; RESP 16; TEMP 36.9; O2SAT 95
== END ==
PROVIDERS: PCP Family Medicine; Referring Provider Nurse Practitioner Acute Care; Visit Provider Nurse Practitioner Acute Care
DX: J45.41 Moderate persistent asthma with (acute) exacerbation (principal)
CPT/HCPCS: 96372; J2357

== ENCOUNTER → 2020-09-09 10:05 | Outpatient (CLI) | payer MEDICARE, OTHER, SELFPAY ==
[2020-09-03 06:07] VITALS: BMI 40.9
[2020-09-09 12:55] LABS: Absolute Lymphocyte Count 1.11 X10^3/uL (0.83-4.51); Absolute Neutrophil Count 4.6 X10^3/uL (2.0-7.7); Basophil# 0.04 X10^3/uL; Basophil% 0.6 % (0-1); Eosinophil# 0.01 X10^3/uL; Eosinophils% 0.2 % (0-5); Hematocrit 41.4 % (37-47); Lymphocyte # 1.11 X10^3/ul (0.83-4.51); Lymphocyte % 17.2 % (19-41); Mean Corp Hgb Conc 31.4 g/dL (32-36); Mean Corpuscular Volume 92.2 fL (81-99); Mean Platelet Vol. 11.8 fl (6.2-12.0); Monocyte# 0.63 X10^3/uL; Monocyte% 9.8 % (0-10); NRBC Flagged by Analyzer 0 % (0-5); Neutrophil # 4.62 X10^3/uL (2.7-7.7); Neutrophil % 71.6 % (47-70); Platelet Count 239 K/mm3 (150-450); RBC Distribution Width CV 15.1 % (11.6-14.6); RBC Distribution Width SD 50.9 fl (35.1-43.9); Red Blood Count 4.49 M/mm3 (4.2-5.4); White Blood Count 6.5 K/mm3 (4.4-11.0)
[2020-09-09 13:32] LABS: ALB/GLOB Ratio 0.9 RATIO (0.9-2.4); AST(SGOT) 19 U/L (15-37); Alanine Aminotransfer ALT/SGPT 26 U/L (13-56); Albumin, Serum 3.3 g/dL (3.2-5.0); Alkaline Phosphatase 80 U/L (45-117); Anion Gap 5 (5-15); BUN 11 mg/dL (7-18); BUN/Creat Ratio 12.3 RATIO (10-20); Calcium,Total 9.2 mg/dL (8.5-10.1); Chloride 104 mmol/L (98-107); Creatinine, Serum 0.89 mg/dL (0.55-1.02); EST Glomerular Filtration Rate 67 mL/min (>60); Est Glom Filt Rate - Afr Amer 81 mL/min (>60); Globulin 3.6 g/dL (2.2-4.2); Glucose 80 mg/dL (74-106); Potassium 3.7 mmol/L (3.5-5.1); Protein, Total 6.9 g/dL (6.4-8.2); Sodium Level 140 mmol/L (136-145)
== END ==
PROVIDERS: PCP Family Medicine; Referring Provider Internal Medicine Rheumatology; Visit Provider Internal Medicine Rheumatology
DX: M06.4 Inflammatory polyarthropathy (principal); Z79.899 Other long term (current) drug therapy; M35.00 Sjogren syndrome, unspecified; M18.0 Bilateral primary osteoarthritis of first carpometacarpal joints; K21.9 Gastro-esophageal reflux disease without esophagitis; I10 Essential (primary) hypertension; E03.9 Hypothyroidism, unspecified; J44.9 Chronic obstructive pulmonary disease, unspecified; J45.909 Unspecified asthma, uncomplicated; G43.909 Migraine, unspecified, not intractable, without status migrainosus; G47.33 Obstructive sleep apnea (adult) (pediatric)
CPT/HCPCS: 36415; 80053; 85025

== ENCOUNTER → 2020-10-02 14:58 | Outpatient (CLI) | payer MEDICARE, OTHER, SELFPAY ==
[2020-09-03 06:07] VITALS: BMI 40.9
[2020-10-02 15:03] VITALS: BP 158/78; PULSE 87; RESP 16; TEMP 35.8; O2SAT 96; BMI 39.9
[2020-10-02] MEDS: Omalizumab 150 MG/ML Syringe 300 MG SQ (15:06)
== END ==
PROVIDERS: PCP Family Medicine; Referring Provider Nurse Practitioner Acute Care; Visit Provider Nurse Practitioner Acute Care
DX: J45.41 Moderate persistent asthma with (acute) exacerbation (principal)
CPT/HCPCS: 96372; J2357

== ENCOUNTER → 2020-10-30 14:45 | Outpatient (CLI) | payer MEDICARE, OTHER, SELFPAY ==
[2020-09-03 06:07] VITALS: BMI 40.9
[2020-10-30 14:50] VITALS: BP 150/92; PULSE 94; RESP 16; TEMP 35.7; O2SAT 96; BMI 39.9
[2020-10-30] MEDS: Omalizumab 150 MG/ML Syringe 300 MG SQ (14:53)
== END ==
PROVIDERS: PCP Family Medicine; Referring Provider Nurse Practitioner Acute Care; Visit Provider Nurse Practitioner Acute Care
DX: J45.41 Moderate persistent asthma with (acute) exacerbation (principal)
CPT/HCPCS: 96372; J2357

== ENCOUNTER → 2020-11-21 09:17 | Outpatient (CLI) | payer MEDICARE, OTHER, SELFPAY ==
[2020-11-21 09:56] LABS: Absolute Lymphocyte Count 1.11 X10^3/uL (0.83-4.51); Absolute Neutrophil Count 5.1 X10^3/uL (2.0-7.7); Basophil# 0.02 X10^3/uL; Basophil% 0.3 % (0-1); Hematocrit 42.1 % (37-47); Hemoglobin 13.5 g/dL (12.0-15.0); Lymphocyte # 1.11 X10^3/ul (0.83-4.51); Mean Corp Hgb Conc 32.1 g/dL (32-36); Mean Corpuscular Hgb 30.1 pg (27.0-32.0); Mean Platelet Vol. 11.1 fl (6.2-12.0); Monocyte% 8.7 % (0-10); NRBC Flagged by Analyzer 0 % (0-5); Neutrophil # 5.14 X10^3/uL (2.7-7.7); Neutrophil % 74.3 % (47-70); Platelet Count 237 K/mm3 (150-450); RBC Distribution Width CV 14.6 % (11.6-14.6); RBC Distribution Width SD 50.2 fl (35.1-43.9); Red Blood Count 4.48 M/mm3 (4.2-5.4); White Blood Count 6.9 K/mm3 (4.4-11.0)
[2020-11-21 10:54] LABS: ALB/GLOB Ratio 0.8 RATIO (0.9-2.4); AST(SGOT) 21 U/L (15-37); Alanine Aminotransfer ALT/SGPT 26 U/L (13-56); Albumin, Serum 3.3 g/dL (3.2-5.0); Alkaline Phosphatase 82 U/L (45-117); Anion Gap 4 (5-15); BUN 10 mg/dL (7-18); BUN/Creat Ratio 12.1 RATIO (10-20); Calcium,Total 9.4 mg/dL (8.5-10.1); Chloride 104 mmol/L (98-107); Creatinine, Serum 0.83 mg/dL (0.55-1.02); EST Glomerular Filtration Rate 73 mL/min (>60); Est Glom Filt Rate - Afr Amer 88 mL/min (>60); Globulin 4.1 g/dL (2.2-4.2); Glucose 100 mg/dL (74-106); Potassium 3.8 mmol/L (3.5-5.1); Protein, Total 7.4 g/dL (6.4-8.2); Sodium Level 137 mmol/L (136-145)
== END ==
PROVIDERS: PCP Family Medicine; Referring Provider Internal Medicine Rheumatology; Visit Provider Internal Medicine Rheumatology
DX: M06.4 Inflammatory polyarthropathy (principal); M35.00 Sjogren syndrome, unspecified; M18.0 Bilateral primary osteoarthritis of first carpometacarpal joints; K21.9 Gastro-esophageal reflux disease without esophagitis; Z79.899 Other long term (current) drug therapy
CPT/HCPCS: 36415; 80053; 85025

== ENCOUNTER → 2020-11-29 12:51 | Outpatient (CLI) | payer MEDICARE, OTHER, SELFPAY ==
[2020-11-29 12:58] VITALS: BP 148/62; PULSE 94; RESP 16; TEMP 35.8; O2SAT 95
[2020-11-29] MEDS: Omalizumab 150 MG/ML Syringe 300 MG SQ (13:01)
== END ==
PROVIDERS: PCP Family Medicine; Referring Provider Nurse Practitioner Acute Care; Visit Provider Nurse Practitioner Acute Care
DX: J45.41 Moderate persistent asthma with (acute) exacerbation (principal)
CPT/HCPCS: 96372; J2357

== ENCOUNTER → 2020-12-30 12:54 | Outpatient (CLI) | payer MEDICARE, OTHER, SELFPAY ==
[2020-12-30 13:05] VITALS: BP 126/65; PULSE 89; RESP 16; TEMP 36; O2SAT 98
[2020-12-30] MEDS: Omalizumab 150 MG/ML Syringe 300 MG SQ (13:19)
--- NOTE | 2020-12-30 13:23 | NURSING ---
pt. received xolair injection x2 sites. she declines waiting the observation time.
== END ==
PROVIDERS: PCP Family Medicine; Referring Provider Nurse Practitioner Acute Care; Visit Provider Nurse Practitioner Acute Care
DX: J45.41 Moderate persistent asthma with (acute) exacerbation (principal)
CPT/HCPCS: 96372; J2357

== ENCOUNTER → 2021-01-16 08:35 | Outpatient (CLI) | payer MEDICARE, OTHER, SELFPAY ==
[2021-01-16 10:15] LABS: Absolute Lymphocyte Count 0.98 X10^3/uL (0.83-4.51); Absolute Neutrophil Count 6.2 X10^3/uL (2.0-7.7); Basophil# 0.03 X10^3/uL; Basophil% 0.4 % (0-1); Hematocrit 40.7 % (37-47); Hemoglobin 13.1 g/dL (12.0-15.0); Lymphocyte # 0.98 X10^3/ul (0.83-4.51); Lymphocyte % 12.6 % (19-41); Mean Corp Hgb Conc 32.2 g/dL (32-36); Mean Corpuscular Hgb 30.7 pg (27.0-32.0); Mean Corpuscular Volume 95.3 fL (81-99); Mean Platelet Vol. 11.7 fl (6.2-12.0); Monocyte# 0.58 X10^3/uL; Monocyte% 7.4 % (0-10); NRBC Flagged by Analyzer 0 % (0-5); Neutrophil # 6.16 X10^3/uL (2.7-7.7); Platelet Count 237 K/mm3 (150-450); RBC Distribution Width CV 15.2 % (11.6-14.6); RBC Distribution Width SD 53.6 fl (35.1-43.9); Red Blood Count 4.27 M/mm3 (4.2-5.4); White Blood Count 7.8 K/mm3 (4.4-11.0)
[2021-01-16 10:32] LABS: Hemoglobin A1c 5.9 % (3.8-5.6)
[2021-01-16 10:42] LABS: ALB/GLOB Ratio 0.8 RATIO (0.9-2.4); AST(SGOT) 23 U/L (15-37); Alanine Aminotransfer ALT/SGPT 35 U/L (13-56); Albumin, Serum 3.3 g/dL (3.2-5.0); Alkaline Phosphatase 75 U/L (45-117); Anion Gap 5 (5-15); BUN 13 mg/dL (7-18); BUN/Creat Ratio 15.9 RATIO (10-20); Chloride 102 mmol/L (98-107); Cholesterol 151 mg/dL (200); Creatinine, Serum 0.82 mg/dL (0.55-1.02); EST Glomerular Filtration Rate 74 mL/min (>60); Est Glom Filt Rate - Afr Amer 89 mL/min (>60); Globulin 3.9 g/dL (2.2-4.2); Glucose 104 mg/dL (74-106); High Density Lipoprotein 48 mg/dL; Potassium 3.9 mmol/L (3.5-5.1); Protein, Total 7.2 g/dL (6.4-8.2); Sodium Level 139 mmol/L (136-145); Thyroid Stim Hormone (TSH) 2.24 uIU/mL (0.358-3.74); Triglycerides 113 mg/dL; Very Low Density Lipoprotein 23 mg/dL (5-40)
== END ==
PROVIDERS: PCP Family Medicine; Referring Provider Internal Medicine Rheumatology; Visit Provider Internal Medicine Rheumatology
DX: M06.4 Inflammatory polyarthropathy (principal); M35.00 Sjogren syndrome, unspecified; M18.0 Bilateral primary osteoarthritis of first carpometacarpal joints; K21.9 Gastro-esophageal reflux disease without esophagitis; I10 Essential (primary) hypertension; E03.9 Hypothyroidism, unspecified; J44.9 Chronic obstructive pulmonary disease, unspecified; G43.909 Migraine, unspecified, not intractable, without status migrainosus; G47.33 Obstructive sleep apnea (adult) (pediatric); E11.9 Type 2 diabetes mellitus without complications; Z79.899 Other long term (current) drug therapy
CPT/HCPCS: 36415; 80053; 80061; 83036; 84443; 85025

== ENCOUNTER → 2021-01-29 12:54 | Outpatient (CLI) | payer MEDICARE, OTHER, SELFPAY ==
[2021-01-29 13:03] VITALS: BP 166/77; PULSE 90; RESP 16; TEMP 35.9; O2SAT 95; BMI 38.2
[2021-01-29] MEDS: Omalizumab 150 MG/ML Syringe 300 MG SQ (13:14)
== END ==
PROVIDERS: PCP Family Medicine; Referring Provider Nurse Practitioner Acute Care; Visit Provider Nurse Practitioner Acute Care
DX: J45.41 Moderate persistent asthma with (acute) exacerbation (principal)
CPT/HCPCS: 96372; J2357

== ENCOUNTER → 2021-02-06 09:13 | Outpatient (CLI) | payer MEDICARE, OTHER, SELFPAY ==
--- NOTE | 2021-02-06 09:16 | BI_ITS ---
MAMMOGRAPHY - BILATERAL SCREENING REASON FOR EXAM: Female, 70 years old. Routine annual screening examination. PERTINENT HISTORY: Grandmother with breast cancer. TECHNIQUE: Digital bilateral breast shayy (3D mammographic acquisition) in the CC and MLO projections. 2-D mediolateral oblique (MLO) and craniocaudad (CC) views of both breasts were obtained. CAD: Full Field Digital Mammography with Computer Added Detection was performed. COMPARISON: Comparison is made with prior study dated 11/08/2018 and 08/10/2012. FINDINGS: Breast Composition: There are scattered areas of fibroglandular density. There is a 4.5 mm x 4.7 mm well-defined nodule in the upper lateral aspect of the right breast. This most likely represents a small lymph node. This is unchanged as compared to multiple prior examinations.. Stable small benign-appearing bilateral axillary lymph nodes. No other significant abnormalities are identified. BI/SCRN MAMM (CAD)W/SHAYY BILAT IMPRESSION: 4.5 mm x 4.7 mm well-defined nodule in the upper lateral aspect of the right breast. This most likely represents a small lymph node. This is unchanged from prior multiple examinations. ASSESSMENT CATEGORY: BIRADS Category 2: Benign. A letter regarding these results will be sent to the patient by the facility within 30 days. Approximately 10% of breast cancers are not detected by mammography. A normal mammogram should not delay biopsy of a clinically suspicious abnormality. [id number] Electronically Signed: Ariel Cleveland MD at 10:40 EST , Service support ,
== END ==
PROVIDERS: PCP Family Medicine; Referring Provider Family Medicine; Visit Provider Family Medicine
DX: Z12.31 Encounter for screening mammogram for malignant neoplasm of breast (principal); N63.10 Unspecified lump in the right breast, unspecified quadrant; Z80.3 Family history of malignant neoplasm of breast
CPT/HCPCS: 77063; 77067

== ENCOUNTER 2021-03-04 13:04 | Outpatient (CLI) | payer MEDICARE, OTHER, SELFPAY ==
[2021-03-04 13:10] VITALS: BP 147/75; PULSE 78; RESP 16; TEMP 35.6; O2SAT 98
[2021-03-04] MEDS: Omalizumab 150 MG/ML Syringe 300 MG SQ (13:16)
== END 2021-03-04 23:59 | disposition short-term general hospital (02) ==
LOC: MEDOUTP 13:05
PROVIDERS: PCP Family Medicine; Referring Provider Nurse Practitioner Acute Care; Visit Provider Nurse Practitioner Acute Care
DX: J45.41 Moderate persistent asthma with (acute) exacerbation (principal)
CPT/HCPCS: 96372; J2357

== ENCOUNTER 2021-03-13 10:55 | Outpatient (CLI) | payer MEDICARE, OTHER, SELFPAY ==
--- NOTE | 2021-03-13 10:58 | MRI_ITS ---
STUDY: MR Spine Lumbar W/O Contrast 03/13/2021 3:12 PM REASON FOR EXAM: Female, 70 years old. Back pain LEFT POSTERIOR THIGH PAIN, SUSPECT SPINAL STENOSIS TECHNIQUE: MR Spine Lumbar W/O Contrast Standardized fat and water weighted pulse sequences were obtained. COMPARISON: xr 03.24.12 FINDINGS: Normal lumbar lordosis. There is no substantial scoliosis. Normal conus medullaris that terminates at the L1. There are atherosclerotic vascular calcifications. L1-2: Loss of intervertebral disc height. There is endplate spondylosis of the vertebral body. Normal central canal and intervertebral neuroforamina. There is bilateral facet arthropathy. L2-3: Loss of intervertebral disc height. There is endplate spondylosis of the vertebral body. Normal central canal and intervertebral neuroforamina. There is bilateral facet arthropathy. Disc herniation. There is bilateral ligamentum flavum thickening. Mild spinal stenosis. Mild narrowing the lateral recess. L3-4: Loss of intervertebral disc height. There is endplate spondylosis of the vertebral body. There is bilateral facet arthropathy. Bilateral neural foraminal stenosis. Compression of exiting nerve roots. Left paracentral disc herniation. Narrowing of the lateral recess. Mild spinal stenosis. L4-5: Loss of intervertebral disc height. There is endplate spondylosis of the vertebral body. There is bilateral facet arthropathy. Bilateral neural foraminal stenosis. Compression of exiting nerve roots. Broad-based disc herniation. There is mild mass effect upon the descending right L5 nerve root. Moderate spinal stenosis. L5-S1: Loss of intervertebral disc height. There is endplate spondylosis of the vertebral body. There is bilateral facet arthropathy. Bilateral neural foraminal stenosis. Compression of exiting nerve roots. Right paracentral disc herniation. AP diameter of the disc is 4.7 mm. There is mild mass effect upon the descending right S1 nerve root. Mild spinal stenosis. Normal visualized sacral ala. Normal visualized paraspinous soft tissue structures. MRI/Spine Lumbar (Routine) IMPRESSION: Multilevel degenerative changes, as described above. Disc herniation visualized from L2-3 to L5-S1. Electronically Signed: Walter Mir MD at 15:57 EST , Service support ,
== END 2021-03-13 23:59 | disposition short-term general hospital (02) ==
LOC: MRI 10:56
PROVIDERS: PCP Family Medicine; Visit Provider Family Medicine
DX: M48.061 Spinal stenosis, lumbar region without neurogenic claudication (principal)
CPT/HCPCS: 72148

== ENCOUNTER 2021-04-01 12:50 | Outpatient (CLI) | payer MEDICARE, OTHER, SELFPAY ==
[2021-04-01 13:06] VITALS: BP 143/88; PULSE 98; RESP 18; TEMP 35.8; O2SAT 95
[2021-04-01] MEDS: Omalizumab 150 MG/ML Syringe 300 MG SQ (13:16)
== END 2021-04-01 23:59 | disposition short-term general hospital (02) ==
LOC: MEDOUTP 12:50
PROVIDERS: PCP Family Medicine; Referring Provider Nurse Practitioner Acute Care; Visit Provider Nurse Practitioner Acute Care
DX: J45.41 Moderate persistent asthma with (acute) exacerbation (principal)
CPT/HCPCS: 96372; J2357

== ENCOUNTER 2021-04-21 09:29 | Outpatient (CLI) | payer MEDICARE, OTHER, SELFPAY ==
[2021-04-21 11:54] LABS: Absolute Lymphocyte Count 1.66 X10^3/uL (0.83-4.51); Basophil# 0.03 X10^3/uL; Basophil% 0.4 % (0-1); Hematocrit 42.8 % (37-47); Hemoglobin 14.2 g/dL (12.0-15.0); Lymphocyte # 1.66 X10^3/ul (0.83-4.51); Lymphocyte % 20.1 % (19-41); Mean Corp Hgb Conc 33.2 g/dL (32-36); Mean Corpuscular Hgb 31.5 pg (27.0-32.0); Mean Corpuscular Volume 94.9 fL (81-99); Mean Platelet Vol. 10.9 fl (6.2-12.0); Monocyte# 0.58 X10^3/uL; NRBC Flagged by Analyzer 0 % (0-5); Neutrophil # 5.96 X10^3/uL (2.7-7.7); Platelet Count 256 K/mm3 (150-450); RBC Distribution Width CV 13.9 % (11.6-14.6); RBC Distribution Width SD 48.2 fl (35.1-43.9); Red Blood Count 4.51 M/mm3 (4.2-5.4); White Blood Count 8.3 K/mm3 (4.4-11.0)
[2021-04-21 12:32] LABS: ALB/GLOB Ratio 0.9 RATIO (0.9-2.4); AST(SGOT) 14 U/L (15-37); Alanine Aminotransfer ALT/SGPT 30 U/L (13-56); Albumin, Serum 3.4 g/dL (3.2-5.0); Alkaline Phosphatase 71 U/L (45-117); Anion Gap 4 (5-15); BUN 15 mg/dL (7-18); Calcium,Total 9.3 mg/dL (8.5-10.1); Chloride 104 mmol/L (98-107); Creatinine, Serum 0.79 mg/dL (0.55-1.02); EST Glomerular Filtration Rate 77 mL/min (>60); Est Glom Filt Rate - Afr Amer 93 mL/min (>60); Globulin 3.8 g/dL (2.2-4.2); Glucose 93 mg/dL (74-106); Potassium 3.5 mmol/L (3.5-5.1); Protein, Total 7.2 g/dL (6.4-8.2); Sodium Level 138 mmol/L (136-145)
== END 2021-04-21 23:59 | disposition home or self-care (01) ==
LOC: MTLAB 09:32
PROVIDERS: PCP Family Medicine; Referring Provider Internal Medicine Rheumatology; Visit Provider Internal Medicine Rheumatology
DX: M06.4 Inflammatory polyarthropathy (principal); M35.00 Sjogren syndrome, unspecified; J44.9 Chronic obstructive pulmonary disease, unspecified; M18.0 Bilateral primary osteoarthritis of first carpometacarpal joints; K21.9 Gastro-esophageal reflux disease without esophagitis; I10 Essential (primary) hypertension; G43.909 Migraine, unspecified, not intractable, without status migrainosus; G47.33 Obstructive sleep apnea (adult) (pediatric); Z79.899 Other long term (current) drug therapy
CPT/HCPCS: 36415; 80053; 85025

== ENCOUNTER 2021-04-29 12:52 | Outpatient (CLI) | payer MEDICARE, OTHER, SELFPAY ==
[2021-04-29 12:59] VITALS: BP 146/65; PULSE 88; RESP 18; TEMP 35.7; O2SAT 97
[2021-04-29] MEDS: Omalizumab 150 MG/ML Syringe 300 MG SQ (13:08)
--- NOTE | 2021-04-29 13:12 | NURSING ---
pt. declines to stay for observation.
== END 2021-04-29 23:59 | disposition home or self-care (01) ==
PROVIDERS: PCP Family Medicine; Referring Provider Nurse Practitioner Acute Care; Visit Provider Nurse Practitioner Acute Care
DX: J45.41 Moderate persistent asthma with (acute) exacerbation (principal)
CPT/HCPCS: 96372; J2357

== ENCOUNTER 2021-05-30 13:51 | Outpatient (CLI) | payer MEDICARE, OTHER, SELFPAY ==
[2021-05-30 13:57] VITALS: BP 158/67; PULSE 97; RESP 18; TEMP 36.3; O2SAT 94; BMI 40.7
[2021-05-30] MEDS: Omalizumab 150 MG/ML Syringe 300 MG SQ (14:00)
== END 2021-05-30 23:59 | disposition home or self-care (01) ==
LOC: MEDOUTP 13:51
PROVIDERS: PCP Family Medicine; Referring Provider Nurse Practitioner Acute Care; Visit Provider Nurse Practitioner Acute Care
DX: J45.41 Moderate persistent asthma with (acute) exacerbation (principal)
CPT/HCPCS: 96372; J2357

== ENCOUNTER → 2021-07-04 | Outpatient (CLI) | payer MEDICARE, OTHER, SELFPAY ==
[2021-07-04 13:52] VITALS: BP 164/71; PULSE 93; RESP 18; TEMP 35.9; O2SAT 93; BMI 39.9
[2021-07-04] MEDS: Omalizumab 150 MG/ML Syringe 300 MG SQ (14:22)
[2021-07-04 14:27] VITALS: BP 124/78; PULSE 94; RESP 18; TEMP 36; O2SAT 95
== END | disposition home or self-care (01) ==
LOC: MEDOUTP 13:47
PROVIDERS: PCP Family Medicine; Referring Provider Nurse Practitioner Acute Care; Visit Provider Nurse Practitioner Acute Care
DX: J45.41 Moderate persistent asthma with (acute) exacerbation (principal)
CPT/HCPCS: 96372; J2357

== ENCOUNTER → 2021-08-01 | Outpatient (CLI) | payer MEDICARE, OTHER, SELFPAY ==
[2021-08-01 13:53] VITALS: BP 149/78; PULSE 78; RESP 16; TEMP 36.7; O2SAT 96; BMI 39.9
[2021-08-01] MEDS: Omalizumab 150 MG/ML Syringe 300 MG SQ (13:57)
[2021-08-01 14:02] VITALS: BP 151/78; PULSE 75; RESP 16; TEMP 36.6; O2SAT 95
== END | disposition home or self-care (01) ==
LOC: MEDOUTP 13:46
PROVIDERS: PCP Family Medicine; Referring Provider Nurse Practitioner Acute Care; Visit Provider Nurse Practitioner Acute Care
DX: J45.41 Moderate persistent asthma with (acute) exacerbation (principal)
CPT/HCPCS: 96372; J2357

== ENCOUNTER → 2021-08-07 | Outpatient (CLI) | payer MEDICARE, OTHER, SELFPAY ==
[2021-08-07 12:20] LABS: Absolute Lymphocyte Count 1.27 X10^3/uL (0.83-4.51); Absolute Neutrophil Count 4.6 X10^3/uL (2.0-7.7); Basophil# 0.03 X10^3/uL; Basophil% 0.5 % (0-1); Hematocrit 43.6 % (37-47); Hemoglobin 13.7 g/dL (12.0-15.0); Lymphocyte # 1.27 X10^3/ul (0.83-4.51); Lymphocyte % 19.3 % (19-41); Mean Corp Hgb Conc 31.4 g/dL (32-36); Mean Corpuscular Hgb 30.2 pg (27.0-32.0); Mean Corpuscular Volume 96.2 fL (81-99); Mean Platelet Vol. 11.7 fl (6.2-12.0); Monocyte# 0.59 X10^3/uL; NRBC Flagged by Analyzer 0 % (0-5); Neutrophil # 4.64 X10^3/uL (2.7-7.7); Neutrophil % 70.4 % (47-70); Platelet Count 258 K/mm3 (150-450); RBC Distribution Width CV 14.2 % (11.6-14.6); RBC Distribution Width SD 49.5 fl (35.1-43.9); Red Blood Count 4.53 M/mm3 (4.2-5.4); White Blood Count 6.6 K/mm3 (4.4-11.0)
[2021-08-07 12:45] LABS: ALB/GLOB Ratio 0.9 RATIO (0.9-2.4); AST(SGOT) 21 U/L (15-37); Alanine Aminotransfer ALT/SGPT 31 U/L (13-56); Albumin, Serum 3.5 g/dL (3.2-5.0); Alkaline Phosphatase 80 U/L (45-117); Anion Gap 6 (5-15); BUN 11 mg/dL (7-18); BUN/Creat Ratio 13.5 RATIO (10-20); Calcium,Total 9.3 mg/dL (8.5-10.1); Chloride 106 mmol/L (98-107); Creatinine, Serum 0.82 mg/dL (0.55-1.02); EST Glomerular Filtration Rate 74 mL/min (>60); Est Glom Filt Rate - Afr Amer 89 mL/min (>60); Globulin 3.7 g/dL (2.2-4.2); Glucose 100 mg/dL (74-106); Potassium 3.5 mmol/L (3.5-5.1); Protein, Total 7.2 g/dL (6.4-8.2); Sodium Level 140 mmol/L (136-145)
== END | disposition home or self-care (01) ==
LOC: MTLAB 09:32
PROVIDERS: PCP Family Medicine; Referring Provider Internal Medicine Rheumatology; Visit Provider Internal Medicine Rheumatology
DX: M06.4 Inflammatory polyarthropathy (principal); M35.00 Sjogren syndrome, unspecified; J44.9 Chronic obstructive pulmonary disease, unspecified; M18.0 Bilateral primary osteoarthritis of first carpometacarpal joints; K21.9 Gastro-esophageal reflux disease without esophagitis; I10 Essential (primary) hypertension; E03.9 Hypothyroidism, unspecified; G43.909 Migraine, unspecified, not intractable, without status migrainosus; G47.33 Obstructive sleep apnea (adult) (pediatric); Z79.899 Other long term (current) drug therapy
CPT/HCPCS: 36415; 80053; 85025

== ENCOUNTER → 2021-08-29 | Outpatient (CLI) | payer MEDICARE, OTHER, SELFPAY ==
[2021-08-29 13:49] VITALS: BP 163/60; PULSE 86; RESP 16; TEMP 36.2; O2SAT 97; BMI 39.9
[2021-08-29] MEDS: Omalizumab 150 MG/ML Syringe 300 MG SQ (13:54)
== END | disposition home or self-care (01) ==
LOC: MEDOUTP 13:46
PROVIDERS: PCP Family Medicine; Referring Provider Nurse Practitioner Acute Care; Visit Provider Nurse Practitioner Acute Care
DX: J45.41 Moderate persistent asthma with (acute) exacerbation (principal)
CPT/HCPCS: 96372; J2357

== ENCOUNTER → 2021-09-26 | Outpatient (CLI) | payer MEDICARE, OTHER, SELFPAY ==
[2021-09-26 10:58] VITALS: BP 166/92; PULSE 89; RESP 16; TEMP 36.5; O2SAT 95
[2021-09-26] MEDS: Omalizumab 150 MG/ML Syringe 300 MG SQ (11:05)
== END | disposition home or self-care (01) ==
LOC: MEDOUTP 10:50
PROVIDERS: PCP Family Medicine; Referring Provider Nurse Practitioner Acute Care; Visit Provider Nurse Practitioner Acute Care
DX: J45.41 Moderate persistent asthma with (acute) exacerbation (principal)
CPT/HCPCS: 96372; J2357

== ENCOUNTER → 2021-10-24 | Outpatient (CLI) | payer MEDICARE, OTHER, SELFPAY ==
[2021-10-24] MEDS: Omalizumab 150 MG/ML Syringe 300 MG SQ (11:03)
[2021-10-24 11:10] VITALS: BP 164/82; PULSE 83; TEMP 35.6; O2SAT 92
== END | disposition home or self-care (01) ==
LOC: MEDOUTP 10:50
PROVIDERS: PCP Family Medicine; Referring Provider Nurse Practitioner Acute Care; Visit Provider Nurse Practitioner Acute Care
DX: J45.41 Moderate persistent asthma with (acute) exacerbation (principal)
CPT/HCPCS: 96372; J2357

== ENCOUNTER → 2021-10-28 | Outpatient (CLI) | payer MEDICARE, OTHER, SELFPAY ==
[2021-10-28 15:33] LABS: Absolute Lymphocyte Count 1.21 X10^3/uL (0.83-4.51); Absolute Neutrophil Count 5.1 X10^3/uL (2.0-7.7); Basophil# 0.03 X10^3/uL; Basophil% 0.4 % (0-1); Hematocrit 41.8 % (37-47); Hemoglobin 13.5 g/dL (12.0-15.0); Lymphocyte # 1.21 X10^3/ul (0.83-4.51); Lymphocyte % 17.4 % (19-41); Mean Corp Hgb Conc 32.3 g/dL (32-36); Mean Corpuscular Hgb 30.5 pg (27.0-32.0); Mean Corpuscular Volume 94.6 fL (81-99); Mean Platelet Vol. 12.2 fl (6.2-12.0); Monocyte# 0.53 X10^3/uL; Monocyte% 7.6 % (0-10); NRBC Flagged by Analyzer 0 % (0-5); Neutrophil # 5.14 X10^3/uL (2.7-7.7); Neutrophil % 74.2 % (47-70); Platelet Count 264 K/mm3 (150-450); RBC Distribution Width CV 15.4 % (11.6-14.6); RBC Distribution Width SD 53.5 fl (35.1-43.9); Red Blood Count 4.42 M/mm3 (4.2-5.4); White Blood Count 6.9 K/mm3 (4.4-11.0)
[2021-10-28 16:04] LABS: AST(SGOT) 23 U/L (15-37); Alanine Aminotransfer ALT/SGPT 31 U/L (13-56); Albumin, Serum 3.5 g/dL (3.2-5.0); Alkaline Phosphatase 77 U/L (45-117); Anion Gap 6 (5-15); BUN 12 mg/dL (7-18); BUN/Creat Ratio 13.4 RATIO (10-20); Calcium,Total 9.1 mg/dL (8.5-10.1); Chloride 107 mmol/L (98-107); Creatinine, Serum 0.89 mg/dL (0.55-1.02); EST Glomerular Filtration Rate 66 mL/min (>60); Est Glom Filt Rate - Afr Amer 80 mL/min (>60); Globulin 3.5 g/dL (2.2-4.2); Glucose 119 mg/dL (74-106); Potassium 3.6 mmol/L (3.5-5.1); Sodium Level 141 mmol/L (136-145); Thyroid Stim Hormone (TSH) 1.81 uIU/mL (0.358-3.74)
== END | disposition home or self-care (01) ==
LOC: MTLAB 13:34
PROVIDERS: PCP Family Medicine; Referring Provider Family Medicine; Visit Provider Family Medicine
DX: Z01.818 Encounter for other preprocedural examination (principal); R73.01 Impaired fasting glucose; E03.9 Hypothyroidism, unspecified
CPT/HCPCS: 36415; 80053; 83036; 84443; 85025

== ENCOUNTER → 2021-11-28 | Outpatient (CLI) | payer MEDICARE, OTHER, SELFPAY ==
[2021-11-28 09:57] VITALS: BP 161/89; PULSE 88; RESP 16; TEMP 35.7; O2SAT 96
[2021-11-28] MEDS: Omalizumab 150 MG/ML Syringe 300 MG SQ (10:16)
== END | disposition home or self-care (01) ==
LOC: MEDOUTP 09:50
PROVIDERS: PCP Family Medicine; Referring Provider Nurse Practitioner Acute Care; Visit Provider Nurse Practitioner Acute Care
DX: J45.41 Moderate persistent asthma with (acute) exacerbation (principal)
CPT/HCPCS: 96372; J2357

== ENCOUNTER → 2021-12-26 | Outpatient (CLI) | payer MEDICARE, OTHER, SELFPAY ==
[2021-12-26 09:53] VITALS: BP 159/93; PULSE 90; RESP 16; TEMP 36.8; O2SAT 93; BMI 39.9
[2021-12-26] MEDS: Omalizumab 150 MG/ML Syringe 300 MG SQ (09:56)
== END | disposition home or self-care (01) ==
LOC: MEDOUTP 09:43
PROVIDERS: PCP Family Medicine; Referring Provider Nurse Practitioner Acute Care; Visit Provider Nurse Practitioner Acute Care
DX: J45.41 Moderate persistent asthma with (acute) exacerbation (principal); M06.4 Inflammatory polyarthropathy; M35.00 Sjogren syndrome, unspecified; J44.9 Chronic obstructive pulmonary disease, unspecified; Z79.899 Other long term (current) drug therapy; M18.0 Bilateral primary osteoarthritis of first carpometacarpal joints; K21.9 Gastro-esophageal reflux disease without esophagitis; I10 Essential (primary) hypertension; E03.9 Hypothyroidism, unspecified; J45.909 Unspecified asthma, uncomplicated; G43.909 Migraine, unspecified, not intractable, without status migrainosus; G47.33 Obstructive sleep apnea (adult) (pediatric)
CPT/HCPCS: 36415; 80053; 85025; 96372; J2357

== ENCOUNTER → 2021-12-26 | Outpatient (CLI) | payer MEDICARE, OTHER, SELFPAY ==
[2021-12-26 15:17] LABS: Absolute Lymphocyte Count 1.84 X10^3/uL (0.83-4.51); Absolute Neutrophil Count 6.5 X10^3/uL (2.0-7.7); Basophil# 0.04 X10^3/uL; Basophil% 0.4 % (0-1); Eosinophil# 0.01 X10^3/uL; Eosinophils% 0.1 % (0-5); Hematocrit 41.3 % (37-47); Hemoglobin 13.3 g/dL (12.0-15.0); Lymphocyte # 1.84 X10^3/ul (0.83-4.51); Lymphocyte % 19.9 % (19-41); Mean Corp Hgb Conc 32.2 g/dL (32-36); Mean Corpuscular Hgb 30.1 pg (27.0-32.0); Mean Corpuscular Volume 93.4 fL (81-99); Mean Platelet Vol. 11.6 fl (6.2-12.0); Monocyte# 0.73 X10^3/uL; Monocyte% 7.9 % (0-10); NRBC Flagged by Analyzer 0 % (0-5); Neutrophil # 6.54 X10^3/uL (2.7-7.7); Neutrophil % 70.9 % (47-70); Platelet Count 265 K/mm3 (150-450); RBC Distribution Width CV 13.9 % (11.6-14.6); RBC Distribution Width SD 47.6 fl (35.1-43.9); Red Blood Count 4.42 M/mm3 (4.2-5.4); White Blood Count 9.2 K/mm3 (4.4-11.0)
[2021-12-26 15:37] LABS: ALB/GLOB Ratio 0.9 RATIO (0.9-2.4); AST(SGOT) 16 U/L (15-37); Alanine Aminotransfer ALT/SGPT 21 U/L (13-56); Albumin, Serum 3.4 g/dL (3.2-5.0); Alkaline Phosphatase 84 U/L (45-117); Anion Gap 6 (5-15); BUN 13 mg/dL (7-18); BUN/Creat Ratio 16.5 RATIO (10-20); Calcium,Total 9.3 mg/dL (8.5-10.1); Chloride 105 mmol/L (98-107); Creatinine, Serum 0.79 mg/dL (0.55-1.02); EST Glomerular Filtration Rate 77 mL/min (>60); Est Glom Filt Rate - Afr Amer 93 mL/min (>60); Globulin 3.7 g/dL (2.2-4.2); Glucose 97 mg/dL (74-106); Potassium 3.9 mmol/L (3.5-5.1); Protein, Total 7.1 g/dL (6.4-8.2); Sodium Level 140 mmol/L (136-145)
== END | disposition home or self-care (01) ==
LOC: MTLAB 13:42
PROVIDERS: PCP Family Medicine; Referring Provider Internal Medicine Rheumatology; Visit Provider Internal Medicine Rheumatology
DX: Z00.00 Encounter for general adult medical examination without abnormal findings (principal)
CPT/HCPCS: 36415; 80053; 85025

== ENCOUNTER → 2022-01-07 | Outpatient (CLI) | payer MEDICARE, OTHER, SELFPAY ==
--- NOTE | 2022-01-07 13:48 | CT_ITS ---
STUDY: LOW DOSE CT LUNG CANCER SCREENING REASON FOR EXAM: Female, 71 years old. Former smoker. Patient smokes 1 pack per day for 40 years. RADIATION DOSAGE (If Supplied By Facility): CTDIvol = ( 4.02 ) mGy, DLP = ( 146.97 ) mGycm TECHNIQUE: No contrast was administered. Low dose technique was utilized (average mAS-38 and kVp 120). 1.25 mm axial source images with a slice interval of 1.25-mm were reconstructed in lung windows. 2.5 mm axial source images with a slice interval of 2.5-mm were reconstructed in lung windows. 5.0 mm axial source images with a slice interval of 5.0-mm were reconstructed in soft tissue windows. COMPARISON: Comparison is made with prior study dated 08/31/2020. NODULES: The previously seen noncalcified nodule in the posterior aspect of the superior segment of the left lower lobe as seen on axial image #134 as increased in size. It presently measures noncalcified nodule correlation with biopsy is recommended. Emphysema: Mild emphysematous changes. Endobronchial lesion: None Aorta: Atherosclerotic plaque formation of the thoracic aorta. CORONARY ARTERIES: Coronary artery calcification is seen. Heart: Unremarkable Pulmonary artery: Unremarkable Mediastinal nodes: Small mediastinal lymph nodes. Other chest and abdominal findings: CT/Low Dose CT Lung Screening IMPRESSION: Lung-RADS category 4B - Chest CT with or without contrast, PET/CT and/or tissue sampling can be obtained depending on the probability of malignancy and comorbidities. IMPORTANT NOTES FOR USE: ACR Lung-RADS Version 1.1 Assessment Categories Release Date: 2018 Category: Coded 0-4 bases on nodule(s) with highest degree of suspicion. Negative screen is defined as categories 1 and 2; a positive screen is defined as categories 3 and 4. Category 3 and 4A nodules that are unchanged on interval CT should be coded as category 2, and individuals returned to screening in 12 months. Category 4X: Category 3 or 4 nodules with additional imaging findings that increase the suspicion of lung cancer, such as spiculation, GGN that doubles in size in 1 year, enlarged lymph notes, etc. Category Modifiers: S (significant finding unrelated to lung cancer) Electronically Signed: Ariel Cleveland MD at 15:28 EST ,
== END | disposition home or self-care (01) ==
LOC: CT 13:44
PROVIDERS: PCP Family Medicine; Referring Provider Family Medicine; Visit Provider Family Medicine
DX: Z12.2 Encounter for screening for malignant neoplasm of respiratory organs (principal); Z87.891 Personal history of nicotine dependence
CPT/HCPCS: 71271

== ENCOUNTER → 2022-01-23 | Outpatient (CLI) | payer MEDICARE, OTHER, SELFPAY ==
[2022-01-23 10:37] VITALS: BP 155/86; PULSE 89; RESP 16; TEMP 35.4; O2SAT 94; BMI 39.9
[2022-01-23] MEDS: Omalizumab 150 MG/ML Syringe 300 MG SQ (10:41)
== END | disposition home or self-care (01) ==
LOC: MEDOUTP 10:26
PROVIDERS: PCP Family Medicine; Referring Provider Nurse Practitioner Acute Care; Visit Provider Nurse Practitioner Acute Care
DX: J45.41 Moderate persistent asthma with (acute) exacerbation (principal)
CPT/HCPCS: 96372; J2357

== ENCOUNTER → 2022-02-18 | Outpatient (CLI) | payer MEDICARE, OTHER, SELFPAY ==
[2022-02-18 13:44] VITALS: BP 138/71; PULSE 94; RESP 16; TEMP 36.8; O2SAT 94
[2022-02-18] MEDS: Omalizumab 150 MG/ML Syringe 300 MG SQ (13:46)
== END | disposition home or self-care (01) ==
LOC: MEDOUTP 13:30
PROVIDERS: PCP Family Medicine; Referring Provider Nurse Practitioner Acute Care; Visit Provider Nurse Practitioner Acute Care
DX: J45.41 Moderate persistent asthma with (acute) exacerbation (principal)
CPT/HCPCS: 96372; J2357

== ENCOUNTER 2022-02-19 10:00 | Outpatient (RCR) | payer MEDICARE, OTHER, SELFPAY ==
--- NOTE | 2022-01-21 14:15 | HP.PTEVAL ---
Patient's Visit Information SURAJ VAUGHAN is a 71 year old F referred to Physical Therapy by Dr. Zhou Gleason MD with a diagnosis of S/P laminectomy 11/05/21. Date of Evaluation: 01/21/22 Physical Therapist: Walter Rodriguez, PT, ATC - Visit Plan Frequency: 2x /Week Duration: 4-6 Weeks Plan: Postural edu, core strengthening, L/S stretching, nustep, and HEP - Subjective DOS: 11/05/21. Pt reports she had a laminectomy performed on that date. Pt reports she was in a lot of back pain and had L LE radiculopathy that extended to her toes prior to the surgery. Pt notes she still has those symptoms present since the surgery. Pt notes she was able to ambulate for a greater distance after the surgery, but that has regressed over the past couple of weeks as well. Pt reports she was in the hospital for 2 nights after surgery, but has been home since. Pt reports she is retired at this time. Pt reports she has 4 steps to her outside which she can negotiate without difficulty. 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 7/10 pain while sitting here in the clinic (sciatica pain), 10/10 pain with prolonged standing (pt is only able to stand for about 5 minutes until needing to sit down). Pt reports she is only comfortable while she is laying down. - Pain sciatica/LBP Pain Intensity (Out of 10): 7 Pain Intensity Range: 10 - Objective Neuro: B LE sensation is WNL to light touch. B patellar reflex= 2/3. MMT: R LE is grossly 5/5 throughout while L LE is grossly 4+/5 throughout. ROM: L/S ROM is WNL with a mild extension lag. Gait: Pt is able to ambulate 340 feet until needing to rest secondary to pain. Repeated movements: SKTC/DKTC - Balance/Special Test Scores Oswestry Low Back Score: 26 - Goals Goal 1:: Decrease L LE radiculopathy x 25-50% to aid with increased tolerance for standing Goal Time Frame: 4-6 Weeks Goal 2:: Increase core stability x 1 grade to aid with with increasing tolerance for standing Goal Time Frame: 4-6 Weeks Goal 3:: Pt will be able to ambulate greater than 600 feet to aid with community ambulation Goal Time Frame: 4-6 Weeks Goal 4:: I with HEP Goal Time Frame: 4-6 Weeks - Rehabilitation Potential Physical Therapy Diagnosis: Pt has LBP, LE radiculopathy, and intolerance for prolonged ambulation secondary to being s/p laminectomy Rehabilitation Potential: Good - Anticipated Interventions Thank you for the opportunity to evaluate your patient. For Medicare and Medicare HMO plans, please review the plan of care and approve it. It will need to be FAXED BACK to us at [phone] for Medicare purposes. For Medicare only, by signing this I certify the plan of care. Please let me know if there are questions or concerns regarding this plan of care. Physician Signature: Date:
--- NOTE | 2022-02-19 10:30 | HP.PTDCSUM ---
It has been my pleasure to treat SURAJ VAUGHAN referred by Dr. Zhou Gleason MD, with the diagnosis of S/P laminectomy 11/05/21 for a total of 5 visit(s). Discharge Date: Please see the following information for a summary of their discharge status. Subjective: No sig change, but I am feeling a little better today sciatica/LBP Pain Intensity (Out of 10): 3 % Improvement: 20 Objective/Function: LBP is currently 3/10. L LE radiculopathy is relatively unchanged. Pt is able to ambulate approximately 200 feet until needing to rest secondary to L glute pain. Pt is I with [facility] Goal 1:: Decrease L LE radiculopathy x 25-50% to aid with increased tolerance for standing Goal Progress: Not Progressing Goal 2:: Increase core stability x 1 grade to aid with with increasing tolerance for standing Goal Progress: Progressing Goal 3:: Pt will be able to ambulate greater than 600 feet to aid with community ambulation Goal Progress: Not Progressing Goal 4:: I with HEP Goal Progress: Goal Met Plan: Discharge to [facility] If there are questions or concerns regarding this patient's physical therapy, please feel free to call me at [phone]. Thank you for the referral of this patient. Sincerely, Walter Rodriguez, PT, ATC Balance/Gait/Functional tests - Balance/Special Test Scores Oswestry Low Back Score: 17
== END 2022-02-19 13:27 | disposition home or self-care (01) ==
LOC: PT 10:00
PROVIDERS: PCP Family Medicine; Referring Provider Orthopaedic Surgery Orthopaedic Surgery of the Spine; Visit Provider Orthopaedic Surgery Orthopaedic Surgery of the Spine
DX: Z98.890 Other specified postprocedural states
CPT/HCPCS: 97110; 97161; 97164

== ENCOUNTER → 2022-03-10 | Outpatient (CLI) | payer MEDICARE, OTHER, SELFPAY ==
[2022-03-10 12:31] LABS: Platelet Count 370 K/mm3 (150-450)
== END | disposition home or self-care (01) ==
LOC: MTLAB 10:12
PROVIDERS: PCP Family Medicine; Referring Provider Internal Medicine Critical Care Medicine; Visit Provider Internal Medicine Critical Care Medicine
DX: Z00.00 Encounter for general adult medical examination without abnormal findings (principal); J44.9 Chronic obstructive pulmonary disease, unspecified; J45.901 Unspecified asthma with (acute) exacerbation; J30.9 Allergic rhinitis, unspecified; I10 Essential (primary) hypertension; E03.9 Hypothyroidism, unspecified
CPT/HCPCS: 36415; 85049

== ENCOUNTER → 2022-03-16 | Outpatient (CLI) | payer MEDICARE, OTHER, SELFPAY ==
[2022-03-16] VITALS (12 sets, daily range): BP systolic 130–174; BP diastolic 69–126; PULSE 85–99; RESP 13–23; TEMP 36.6; O2SAT 88–99; BMI 38.2
--- NOTE | 2022-03-16 | IMM_PTH ---
PATIENT: SURAJ VAUGHAN LOC: CT U#:[id number] AGE/SX: 71/F ROOM: RE03/16/[address]: Dr. Twan Maynard DO : 1950 BED: DIS: 03/16/2022 SPEC #: [id number] RECD: 03/16/22 14:13 STATUS: COREY REQ #: [id number] ELIAN: 03/16/22 00:[address]: Twan Maynard DEPT: IMMUNOHISTOCHEMISTRY RECD BY: Elena Tran ENTERED: 03/16/22 14:15 SP TYPE: IMMUNO OTHR DR: Dr. Tiffanie Sharma MD Tissues: Left lower lobe of lung, NOS Procedures: RCC (add) NAPSIN A (add) CK20 (add) CK5-6 (add) CK7 (add) CK8 (add) HEP PAR (add) CT (add) TTF1 (add) Pankeratin (add) P40 (add) ER (initial) PHYSICIAN & [address] [address] SPECIMEN INFORMATION: Tissue Source: Left lower lung nodule Clinical Info: Left lower lung nodule Specimen Number: [id number] CPT code: 38433, 04017 x11 METHODOLOGY: Deparaffinized sections of prefer/formalin-fixed tissue or PAP/DQ stained slides are incubated with monoclonal/polyclonal antibodies/oligonucleotide probes. Localization is made via biotin free immunoperoxidase method. Appropriate controls are performed and reacted as expected. Results on target cell population are indicated in the following table: RESULTS: ANTIBODY / CLONE RESULT ER (6F11) negative CT (1E2) negative AE1-3 (AE1/AE3/PCK26) positive CK7 (OV-TL12/30) positive CK8 (69ufguB17) positive CK20 (KS20.8) negative TTF-1 (8G7G3/1) positive Napsin A (Rabbit Polyclonal) positive HepPar (OCh1E5) negative RCC (PN-15) negative CK5-6 (D5 & 1684) positive, rare cells P40 (BC28) negative These tests were developed and their performance characteristics determined by [facility]. They may not have been cleared or approved by the U.S. Food and Drug Administration. The FDA has determined that such clearance or approval is not necessary. The above immunohistochemical/dualISH markers are ordered and reviewed by the Pathologist. INTERPRETATION: Left lower lung nodule, CT-guided core biopsy: Non-small cell carcinoma, favor adenocarcinoma. SJ:gladys 03/17/2022
--- NOTE | 2022-03-16 | ASPIGT_PTH ---
PATIENT: SURAJ VAUGHAN LOC: CT U#:[id number] AGE/SX: 71/F ROOM: RE03/16/[address]: Dr. Twan Maynard DO : 1950 BED: DIS: 03/16/2022 SPEC #: [id number] RECD: 03/16/22 11:20 STATUS: COREY REJoe #: [id number] ELIAN: 03/16/22 00:[address]: Twan Maynard DEPT: SURGICAL PATHOLOGY RECD BY: Jc Joel ENTERED: 03/16/22 11:20 SP TYPE: ASP RAD OTHR DR: Dr. Tiffanie Sharma MD Tissues: Lung, NOS Procedures: FNA Specimen Adequacy Special Stain Group II Surgery Specimen Level IV Imprint (control) HEADER OPERATION: CT-guided left lung biopsy PRE-OP DIAGNOSIS: Left lower lobe lung nodule TISSUE SUBMITTED: Left lower lobe lung nodule 20-gauge MICROSCOPIC DIAGNOSIS Left lower lobe lung nodule, CT-guided core biopsy: Non-small cell carcinoma, favor adenocarcinoma. See comment. WILLIE:gladys 03/17/2022 COMMENT The specimen is evaluated at the time of biopsy by Dr. Taylor. Immediate Evaluation = Malignant cells present derived from non-small cell carcinoma. Immunohistochemistry ([id number]) supports the above diagnosis. Molecular studies on the tumor can be performed if clinically indicated. Please notify the laboratory if they are needed. Case has been reviewed in consultation with Dr. Moore who concurs with the above diagnosis. IDC:AM MICROSCOPIC DESCRIPTION Slides are reviewed. GROSS DESCRIPTION Received in fixative is one container labeled with the patient's name and designated left lower lung CT-guided core biopsy. The specimen consists of multiple irregular fragments of barragan soft tissue that in aggregate measure 1 x 0.1 x 0.1 cm. The specimen is totally submitted in one cassette. Three touch imprints are prepared at the time of core biopsy. / WILLIE:gladys 03/16/2022 TC:0 [facility]: [id number], [id number] ADDENDUM ADDENDUM ADDENDUM ADDENDUM ADDENDUM ADDENDUM ADDENDUM ADDENDUM ADDENDUM ADDENDUM 06/08/2022 09:31 ADDENDUM 06/08/2022 09:31 ADDENDUM 06/08/2022 09:31 ADDENDUM 06/08/2022 09:31 ADDENDUM 06/08/2022 09:31 This addendum is added to incorporate an outside pathology consultation report. The case was examined at [facility] (#[id number]) and the following diagnosis was rendered. Left lower lobe lung nodule, CT-guided core biopsy: Adenocarcinoma of lung origin. Please see complete above mentioned consultation report in EMR
--- NOTE | 2022-03-16 08:51 | CT_ITS ---
PROCEDURE: CT GUIDED CORE NEEDLE BIOPSY OF A left lower lobe LUNG LESION INDICATION: Female, 71 years old. Lung Nodule PHYSICIAN: Dr. BANDAR Vergara CONSENT: Written informed consent was obtained having explained the risks, benefits and alternatives in detail with the patient who accepted the risks and agreed to proceed. Laboratory review and clinical assessment was performed. CONSCIOUS SEDATION PROTOCOL: The Drugs used were: 2 mg Versed, IV., and 50 mcg Fentanyl, IV. The sedation time was: 25 minutes. Conscious sedation was started at 9:56 AM and terminated at 10:21 AM. The conscious sedation protocol was independently monitored. RADIATION DOSAGE (If Supplied By Facility): CTDIvol = ( 20 ) mGy, DLP = ( 427.37 ) mGycm Individualized dose optimization techniques were used for this CT. TECHNIQUE: The patient was placed in the prone position. A noncontrast CT was performed to localize the lesion in the left lower lobe . The skin surface was prepped and draped in a sterile fashion. 1% lidocaine was used for local anesthesia. Using CT guidance, a 20-gauge coaxial biopsy device was advanced to the periphery of the lesion. A total of 5 core specimens were obtained. The specimens were placed in a formalin solution. A post procedure CT demonstrated no adverse sequelae or pneumothorax. The patient tolerated the procedure well without adverse event. A negative biopsy does not exclude malignancy. Further imaging or clinical followup based on patient condition and degree of clinical suspicion for malignancy. Suggest rebiopsy, if biopsy results do not match with clinical scenario. CT/Biopsy/Inj or Needle Placement IMPRESSION: 1. CT directed core needle biopsy of the left lower lobe pulmonary nodule using CT image guidance with image documentation as described. Pathology results are pending. 2. Conscious Sedation protocol utilized with independent monitoring. Electronically Signed: Ariel Cleveland MD at 11:00 EST ,
[2022-03-16 09:01] LABS: Prothrombin Time (Protime)PT. 13.3 SECONDS (11.7-14.9)
[2022-03-16 09:02] LABS: Partial Thromboplast Time 27.8 Seconds (24.1-36.2)
[2022-03-16] MEDS: Midazolam 2 MG/2 ML Syringe IV (09:56)
[2022-03-16] MEDS: fentaNYL 100 MCG/2 ML Ampul IV (09:56)
[2022-03-16] MEDS: Lidocaine 2% (5ml sdv) 5 ML VIAL.MPF (10:22)
--- NOTE | 2022-03-16 10:25 | RAD_ITS ---
STUDY: X-RAY CHEST REASON FOR EXAM: Female, 71 years old. Lung bx LLL -- Immediately post lung biopsy TECHNIQUE: AP inspiration and expiration views COMPARISON: Comparison is made with prior study dated 06/10/2016. FINDINGS: EKG electrodes are seen. There is no evidence of pneumothorax on the immediate post left lung biopsy radiographs. RAD/Chest Insp/Exp 2 View IMPRESSION: No evidence of pneumothorax on the immediate post left lung biopsy radiographs. Electronically Signed: Ariel Cleveland MD at 11:01 EST ,
--- NOTE | 2022-03-16 12:30 | RAD_ITS ---
STUDY: X-RAY CHEST REASON FOR EXAM: Female, 71 years old. POST BX LLL -- 2 hours post lung biopsy TECHNIQUE: AP inspiration and expiration views. COMPARISON: Comparison is made with prior study done earlier today. FINDINGS: No evidence of pneumothorax on the 2 hour post left lung biopsy radiographs. RAD/Chest Insp/Exp 2 View IMPRESSION: No evidence of pneumothorax on the two-hour post left lung biopsy radiographs. Electronically Signed: Ariel Cleveland MD at 12:18 EST ,
== END | disposition home or self-care (01) ==
PROVIDERS: PCP Family Medicine; Referring Provider Internal Medicine Critical Care Medicine; Visit Provider Internal Medicine Critical Care Medicine
DX: C34.32 Malignant neoplasm of lower lobe, left bronchus or lung (principal)
CPT/HCPCS: 32408; 36415; 71046; 77012; 85610; 85730; 88172; 88305; 88313; 88341; 88342; 99156; J7050; A4216; C2613

== ENCOUNTER → 2022-03-20 | Outpatient (CLI) | payer MEDICARE, OTHER, SELFPAY ==
[2022-03-20 11:00] VITALS: BP 159/80; PULSE 92; RESP 16; TEMP 35.6; O2SAT 93; BMI 38.2
[2022-03-20] MEDS: Omalizumab 150 MG/ML Syringe 300 MG SQ (11:10)
== END | disposition home or self-care (01) ==
LOC: MEDOUTP 10:55
PROVIDERS: PCP Family Medicine; Referring Provider Nurse Practitioner Acute Care; Visit Provider Nurse Practitioner Acute Care
DX: J45.41 Moderate persistent asthma with (acute) exacerbation (principal)
CPT/HCPCS: 96372; J2357

== ENCOUNTER → 2022-03-25 | Outpatient (CLI) | payer MEDICARE, OTHER, SELFPAY ==
--- NOTE | 2022-03-25 11:00 | PET_ITS ---
EXAMINATION: FDG PET/CT ? INDICATIONS: 71-year-old female with a history of primary lung carcinoma, presenting for apparent initial staging examination. ? COMPARISON EXAMINATION: CT chest report dated 01/07/2022 ? INDEX LESION SIZE SUV INTERPRETATION Left mid lung posteriorly 15.8 mm 5.6 Fulfills quantitative criteria for viable neoplasm ? Right upper lung field, right upper lobe ? 1.7 max Quantitative criteria for viable neoplasm not fulfilled ? TECHNIQUE: Following the intravenous administration of 12.95 mCi of F-18 deoxyglucose via the right antecubital fossa, multiplanar image acquisitions of the neck, chest, abdomen and pelvis to the level of the midthigh, obtained at one-hour post radiopharmaceutical administration contemporaneously interpreted with CT chest report dated 01/07/2022 reveal: ? SERUM GLUCOSE LEVEL:? 114 mg/dL? HEIGHT:?? 65 inches WEIGHT:?? 233 pounds ? FINDINGS: ? HEAD/NECK:? There is no evidence of abnormal increased glucose metabolism in the pharyngeal mucosal space, parapharyngeal space, oropharynx, bilateral-lateral and anterior neck, hypopharynx and distribution of the larynx. There is increased tracer concentration noted in the left lower laryngeal structures extending from the anterior commissure to the cricoid cartilage bilaterally without evidence of soft tissue thickening, most consistent with physiologic tracer uptake. ? The visualized portion of the cerebral cortical-subcortical structures demonstrate symmetric and preserved glucose metabolism. ? CHEST:? Facilitated FDG uptake is noted in the left mid posterior lung zone, left lower lobe. The calculated maximum standard uptake value is 5.6. The maximal axial diameter of the metabolic, morphologic abnormality is 15.8 mm. Additionally, there is increased radiopharmaceutical concentration noted in the right upper posterolateral lung zone, right upper lobe generating a calculated maximum standard uptake value of 1.7. The left ventricular myocardium visualization is consistent with the [place]. Prominent tracer uptake is noted in the descending thoracic, as well as abdominal aorta commensurate with activated leukocytes associated with atherosclerotic plaque formation. ? CT of the chest demonstrates the following anatomic characteristics: Emphysematous changes are defined in the bilateral upper lung morris. Scattered mediastinal and bilateral axillary soft tissue densities are nonglucose avid. Atherosclerotic calcification is defined in the thoracic aorta without evidence of dilatation, aneurysm formation. Coronary artery calcification is observed. A small hiatal hernia is defined. ? ABDOMEN/PELVIS:? Normal physiologic distribution of the radiopharmaceutical is identified in the hepatic (3.6) and splenic parenchyma, both renal units, urinary bladder, and visualized intestinal tract. Diffuse intestinal tract is identified in all four quadrants of the abdominal-pelvic mesentery. ? CT of the abdomen and pelvis is remarkable for the following: Atherosclerotic calcification is defined in the abdominal aorta without evidence of dilatation, aneurysm formation. Abdominal and pelvic arterial calcification is observed. Subcentimeter bilateral inguinal soft tissue densities are nonglucose avid. The uterus is surgically absent. Colonic diverticulosis is noted without evidence of diverticulitis. ? SKELETAL:? There is no evidence of quantitatively significant enhanced glucose metabolism on meticulous inspection of the appendicular and axial skeletal structures. ? Degenerative changes defined in the thoracic and lumbar spine demonstrate no evidence of increased glucose metabolism. There are no sclerotic, mixed sclerotic-lytic, or primarily lytic changes defined in the axial skeletal structures with evidence of increased FDG uptake. ? PET/PET/CT Tumor Base -Thigh Init IMPRESSION: 1. ABNORMAL EXAMINATION INDICATIVE OF MALIGNANT-VIABLE NEOPLASM. 2. Increased radiopharmaceutical concentration defined in the left mid posterior lung field, left lower lobe fulfills quantitative criteria for viable neoplasm. 3. Enhanced tracer uptake noted in the right mid posterior lung zone, right upper lobe does not fulfill quantitative criteria for malignant transformation (Beth et al, Journal of Nuclear Medicine, 32:1, 1991). 4. No other quantitatively significant hypermetabolic abnormalities are encountered. Electronic Signature Amari Carlson D.O. Accurate Quantification of SUVs for this report are calculated using the exclusive [employer] Technology. (U.S. Patent No. [phone], [phone] 983 B2 [phone] [place] patent [phone]). Standardization and correction of the FDG SUV metric via [employer] technology allow for vendor non-specific objective quantitative examination comparison and optimization of the sensitivity and specificity of the FDG PET-CT examination. . ? Electronically Signed: Amari Carlson, at 11:02 EST ,
== END | disposition home or self-care (01) ==
LOC: ONC 09:09
PROVIDERS: PCP Family Medicine; Referring Provider Internal Medicine Critical Care Medicine; Visit Provider Internal Medicine Critical Care Medicine
DX: C34.32 Malignant neoplasm of lower lobe, left bronchus or lung (principal)
CPT/HCPCS: 78815; A9552

== ENCOUNTER → 2022-03-27 | Outpatient (CLI) | payer MEDICARE, OTHER, SELFPAY ==
[2022-03-27 12:21] LABS: Absolute Lymphocyte Count 1.78 X10^3/uL (0.83-4.51); Basophil# 0.04 X10^3/uL; Basophil% 0.5 % (0-1); Hematocrit 42.6 % (37-47); Hemoglobin 13.1 g/dL (12.0-15.0); Lymphocyte # 1.78 X10^3/ul (0.83-4.51); Lymphocyte % 23.4 % (19-41); Mean Corp Hgb Conc 30.8 g/dL (32-36); Mean Corpuscular Hgb 27.9 pg (27.0-32.0); Mean Corpuscular Volume 90.6 fL (81-99); Mean Platelet Vol. 11.5 fl (6.2-12.0); Monocyte# 0.75 X10^3/uL; Monocyte% 9.9 % (0-10); NRBC Flagged by Analyzer 0 % (0-5); Neutrophil # 4.99 X10^3/uL (2.7-7.7); Neutrophil % 65.7 % (47-70); Platelet Count 290 K/mm3 (150-450); RBC Distribution Width CV 16.7 % (11.6-14.6); RBC Distribution Width SD 55.5 fl (35.1-43.9); White Blood Count 7.6 K/mm3 (4.4-11.0)
[2022-03-27 12:42] LABS: ALB/GLOB Ratio 0.9 RATIO (0.9-2.4); AST(SGOT) 29 U/L (15-37); Alanine Aminotransfer ALT/SGPT 35 U/L (13-56); Albumin, Serum 3.7 g/dL (3.2-5.0); Alkaline Phosphatase 76 U/L (45-117); Anion Gap 6 (5-15); BUN 8 mg/dL (7-18); BUN/Creat Ratio 11.4 RATIO (10-20); Calcium,Total 9.7 mg/dL (8.5-10.1); Chloride 106 mmol/L (98-107); EST Glomerular Filtration Rate 88 mL/min (>60); Est Glom Filt Rate - Afr Amer 106 mL/min (>60); Globulin 4.2 g/dL (2.2-4.2); Glucose 101 mg/dL (74-106); Protein, Total 7.9 g/dL (6.4-8.2); Sodium Level 142 mmol/L (136-145)
== END | disposition home or self-care (01) ==
LOC: MTLAB 11:17
PROVIDERS: PCP Family Medicine; Referring Provider Internal Medicine Rheumatology; Visit Provider Internal Medicine Rheumatology
DX: M06.4 Inflammatory polyarthropathy (principal); Z79.899 Other long term (current) drug therapy
CPT/HCPCS: 36415; 80053; 85025

== ENCOUNTER → 2022-04-14 | Outpatient (CLI) | payer MEDICARE, OTHER, SELFPAY ==
--- NOTE | 2022-04-14 15:38 | PFTCOMP ---
COMPLETE PULMONARY FUNCTION TEST INTERPRETATION Brief HPI: Patient is a 71-year-old female, currently under the care of Dr. Lee, who presents to [facility] for complete pulmonary function tests secondary to diagnosis of staging lung cancer. Respiratory therapist reports good effort and reproducible results. Interpretation: Forced expiration spirometry shows a severe large airways obstructive ventilatory defect with an FEV1 of 46% predicted. There is no significant bronchodilator response by strict ATS criteria. Spirograms are of good quality and plateau slowly, indicating slowly emptying areas of the lungs. The respiratory flow volume loop shows decreased expiratory flow rates at all lung volumes consistent with airway obstruction. Lung volumes by body plethysmography show an elevated total lung capacity at 7.23 L, 139% predicted. FRC and RV are elevated out of proportion. Lung volume measurements are consistent with hyperinflation and air-trapping. Diffusion capacity by carbon monoxide is decreased at 62% predicted. The airway resistance is elevated. Compared to previous pulmonary function tests from 06/24/2017, there has been a significant improvement in spirometry and DLCO. Impression: Irreversible severe large airways obstructive ventilatory defect resulting in air trapping with hyperinflation, and a symmetric reduction in diffusing capacity
== END | disposition home or self-care (01) ==
LOC: PSN 12:43
PROVIDERS: PCP Family Medicine; Visit Provider Internal Medicine Hematology & Oncology
DX: C34.32 Malignant neoplasm of lower lobe, left bronchus or lung (principal)
CPT/HCPCS: 94060; 94726; 94729

== ENCOUNTER → 2022-04-15 | Outpatient (CLI) | payer MEDICARE, OTHER, SELFPAY ==
--- NOTE | 2022-04-15 12:38 | MRI_ITS ---
STUDY: MRI BRAIN WITH AND WITHOUT CONTRAST REASON FOR EXAM: Female, 71 years old. Staging for NSCLC TECHNIQUE: Standardized multiplanar fat and water weighted pulse sequences were obtained. IV 20ml clariscan was administered for the contrast portion of the examination. COMPARISON: None. FINDINGS: Normal size of the ventricles and extra-axial spaces for the patient''s age. There are a limited number of small white matter hyperintensities, distributed throughout the deep white matter tracts of the cerebral hemispheres, consistent with mild chronic white matter ischemic changes. There is no evidence for recent intracranial ischemia or other cause of cytotoxic edema on diffusion weighted imaging (DWI). Normal T2* images of the brain without demonstrated susceptibility artifact. There is no demonstrated hemosiderin stain. There are no focal brain parenchymal lesions or abnormal areas of an edema or infiltration or enhancement on the current study. There is no abnormal thickening or enhancement of the meninges or dura on the current study. No skull lesions are seen. Normal bilateral basal ganglia. Normal thalami. There is no extra-axial fluid accumulation. Normal flow voids within the major intracranial circulation suggesting patency by spin echo criteria. Normal venous enhancement. There is no enhancing intra-axial or extra-axial abnormality. Normal sella turcica, pituitary gland, infundibular stalk, optic chiasm and hypothalamus. Normal tectal plate and pineal gland. Normal midbrain, destiny and medulla. Normal cerebellum. Normal basal cisterns. Normal bilateral temporal bones. Normal bilateral internal auditory canals. No demonstrated orbital abnormality, within the constraints of a routine brain study. Normal visualized paranasal sinuses. Normal calvarium and skull base. Normal visualized soft tissue structures. Normal visualized upper cervical spine. MRI/Brain W/WO Contrast IMPRESSION: 1. Involutional and chronic ischemic changes of the brain, as described above. 2. There are no focal brain parenchymal lesions or abnormal areas of an edema or infiltration or enhancement on the current study. There is no abnormal thickening or enhancement of the meninges or dura on the current study. No skull lesions are seen. Electronically Signed: Rashid Duarte MD at 15:38 EST ,
== END | disposition home or self-care (01) ==
LOC: MRI 12:38
PROVIDERS: PCP Family Medicine; Referring Provider Internal Medicine Critical Care Medicine; Visit Provider Internal Medicine Critical Care Medicine
DX: C34.92 Malignant neoplasm of unspecified part of left bronchus or lung (principal)
CPT/HCPCS: 70553; A9581

== ENCOUNTER → 2022-04-23 | Outpatient (CLI) | payer MEDICARE, OTHER, SELFPAY ==
[2022-04-23 13:14] VITALS: BP 149/63; PULSE 91; RESP 16; TEMP 36.4; O2SAT 97
[2022-04-23] MEDS: Omalizumab 150 MG/ML Syringe 300 MG SQ (13:16)
== END | disposition home or self-care (01) ==
LOC: MEDOUTP 13:10
PROVIDERS: PCP Family Medicine; Referring Provider Nurse Practitioner Acute Care; Visit Provider Nurse Practitioner Acute Care
DX: J45.41 Moderate persistent asthma with (acute) exacerbation (principal)
CPT/HCPCS: 96372; J2357

== ENCOUNTER → 2022-05-22 | Outpatient (CLI) | payer MEDICARE, OTHER, SELFPAY ==
[2022-05-22 14:15] VITALS: BP 172/81; PULSE 94; RESP 16; TEMP 36.5; O2SAT 95; BMI 38.9
[2022-05-22] MEDS: Omalizumab 150 MG/ML Syringe 300 MG SQ (14:18)
== END | disposition home or self-care (01) ==
LOC: MEDOUTP 13:27
PROVIDERS: PCP Family Medicine; Referring Provider Nurse Practitioner Acute Care; Visit Provider Nurse Practitioner Acute Care
DX: J45.41 Moderate persistent asthma with (acute) exacerbation (principal)
CPT/HCPCS: 96372; 77373; J2357

== ENCOUNTER → 2022-06-16 | Outpatient (CLI) | payer MEDICARE, OTHER, SELFPAY ==
--- NOTE | 2022-06-16 13:00 | MRI_ITS ---
EXAM: MR LUMBAR SPINE WITHOUT AND WITH INTRAVENOUS CONTRAST CLINICAL INDICATION: POST LAMI SYNDROME TECHNIQUE: Multiplanar and multisequence MR images of the lumbar spine without and with intravenous contrast. This report was created using [employer] report USB [employer] technology. CONTRAST: IV 21ml Clariscan COMPARISON: MR Lumbar Spine dated 03/13/2021 FINDINGS: VERTEBRAE: Alignment of the lumbar vertebral bodies is normal. Schmorl node deformities are noted at. T11, T12 and L1. Vertebral body height otherwise unremarkable. Interval L4 and L5 laminectomy associated with contrast enhancing soft tissues along the laminectomy defect as well as edematous changes of the posterior subcutaneous tissues. SPINAL CORD: Normal. Normal position and signal intensity of the conus medullaris. SOFT TISSUES: Normal. DISCS/SPINAL CANAL/NEURAL FORAMINA: L1-L2: Mild disc space narrowing. Persistent left posterior lateral disc protrusion causes mild narrowing of the left neural foramen. No spinal stenosis. L2-L3: Disc space narrowing. Mild disc bulging, posterior ligamentous hypertrophy and facet arthropathy results in mild to moderate spinal stenosis not significantly changed from prior exam. No significant narrowing of the neural foramina. L3-L4: Mild disc bulging, ligamentous hypertrophy and facet arthropathy results in mild spinal stenosis, unchanged from prior exam. Mild to moderate narrowing of the neural foramina. L4-L5: Mild to moderate disc space narrowing. Disc protrusion and facet arthropathy results in severe right and moderate left neural foraminal narrowing. No significant spinal stenosis. L5-S1: Lateral osteophyte, disc complex and facet arthropathy results in moderate right and severe left neural foraminal narrowing. No spinal stenosis. MRI/Spine Lumbar W/WO Contrast IMPRESSION: Interval L4 and L5 laminectomy. No significant spinal stenosis. Significant multilevel neural foraminal narrowing as described above. Electronically Signed: Terry Milligan MD at 9:16 EDT ,
[2022-06-16 13:10] LABS: CREATININE FINGERSTICK < 0.9 mg/dL (0.55-1.02); EGFR FINGERSTICK > 60.0000 mL/min (>60)
== END | disposition home or self-care (01) ==
LOC: MRI 12:32
PROVIDERS: PCP Family Medicine; Referring Provider Orthopaedic Surgery Orthopaedic Surgery of the Spine; Visit Provider Orthopaedic Surgery Orthopaedic Surgery of the Spine
DX: M96.1 Postlaminectomy syndrome, not elsewhere classified (principal); X58.XXXA Exposure to other specified factors, initial encounter
CPT/HCPCS: 72158; A9575

== ENCOUNTER → 2022-06-19 | Outpatient (CLI) | payer MEDICARE, OTHER, SELFPAY ==
[2022-06-19 11:08] VITALS: BP 155/68; PULSE 99; RESP 16; TEMP 36.2; O2SAT 92; BMI 38.2
[2022-06-19] MEDS: Omalizumab 150 MG/ML Syringe 300 MG SQ (11:10)
== END | disposition home or self-care (01) ==
LOC: MEDOUTP 10:57
PROVIDERS: PCP Family Medicine; Referring Provider Nurse Practitioner Acute Care; Visit Provider Nurse Practitioner Acute Care
DX: J45.41 Moderate persistent asthma with (acute) exacerbation (principal)
CPT/HCPCS: 96372; J2357

== ENCOUNTER → 2022-06-23 | Outpatient (CLI) | payer MEDICARE, OTHER, SELFPAY ==
[2022-06-23 12:57] LABS: Absolute Lymphocyte Count 1.35 X10^3/uL (0.83-4.51); Absolute Neutrophil Count 5.7 X10^3/uL (2.0-7.7); Basophil# 0.03 X10^3/uL; Basophil% 0.4 % (0-1); Hematocrit 40.9 % (37-47); Hemoglobin 13.1 g/dL (12.0-15.0); Lymphocyte # 1.35 X10^3/ul (0.83-4.51); Lymphocyte % 17.2 % (19-41); Mean Corpuscular Hgb 29.7 pg (27.0-32.0); Mean Corpuscular Volume 92.7 fL (81-99); Mean Platelet Vol. 11.2 fl (6.2-12.0); Monocyte# 0.74 X10^3/uL; Monocyte% 9.4 % (0-10); NRBC Flagged by Analyzer 0 % (0-5); Neutrophil # 5.68 X10^3/uL (2.7-7.7); Neutrophil % 72.4 % (47-70); Platelet Count 247 K/mm3 (150-450); RBC Distribution Width CV 16.6 % (11.6-14.6); RBC Distribution Width SD 55.4 fl (35.1-43.9); Red Blood Count 4.41 M/mm3 (4.2-5.4); White Blood Count 7.9 K/mm3 (4.4-11.0)
[2022-06-23 13:56] LABS: ALB/GLOB Ratio 0.9 RATIO (0.9-2.4); AST(SGOT) 21 U/L (15-37); Alanine Aminotransfer ALT/SGPT 34 U/L (13-56); Albumin, Serum 3.4 g/dL (3.2-5.0); Alkaline Phosphatase 75 U/L (45-117); Anion Gap 5 (5-15); BUN 13 mg/dL (7-18); BUN/Creat Ratio 17.2 RATIO (10-20); Calcium,Total 9.1 mg/dL (8.5-10.1); Chloride 105 mmol/L (98-107); Creatinine, Serum 0.76 mg/dL (0.55-1.02); EST Glomerular Filtration Rate 80 mL/min (>60); Est Glom Filt Rate - Afr Amer 97 mL/min (>60); Globulin 3.7 g/dL (2.2-4.2); Glucose 90 mg/dL (74-106); Potassium 3.9 mmol/L (3.5-5.1); Protein, Total 7.1 g/dL (6.4-8.2); Sodium Level 138 mmol/L (136-145)
== END | disposition home or self-care (01) ==
LOC: MTLAB 09:58
PROVIDERS: PCP Family Medicine; Referring Provider Internal Medicine Rheumatology; Visit Provider Internal Medicine Rheumatology
DX: M06.4 Inflammatory polyarthropathy (principal); Z79.899 Other long term (current) drug therapy
CPT/HCPCS: 36415; 80053; 85025

== ENCOUNTER 2022-07-17 12:53 | Outpatient (CLI) | payer MEDICARE, OTHER, SELFPAY ==
[2022-07-17 13:11] VITALS: BP 152/73; PULSE 88; RESP 16; O2SAT 95; BMI 38.2
[2022-07-17] MEDS: Omalizumab 150 MG/ML Syringe 300 MG SQ (13:24)
== END 2022-07-17 12:54 | disposition home or self-care (01) ==
LOC: MEDOUTP 12:54
PROVIDERS: PCP Family Medicine; Referring Provider Nurse Practitioner Acute Care; Visit Provider Nurse Practitioner Acute Care
DX: J45.41 Moderate persistent asthma with (acute) exacerbation (principal)
CPT/HCPCS: 96372; J2357

== ENCOUNTER 2022-08-14 10:26 | Outpatient (CLI) | payer MEDICARE, OTHER, SELFPAY ==
[2022-08-14 10:38] VITALS: BP 148/71; PULSE 87; RESP 16; TEMP 35.9; O2SAT 95; BMI 38.2
[2022-08-14] MEDS: Omalizumab 150 MG/ML Syringe 300 MG SQ (10:41)
== END 2022-08-14 10:27 | disposition home or self-care (01) ==
LOC: MEDOUTP 10:26
PROVIDERS: PCP Family Medicine; Referring Provider Nurse Practitioner Acute Care; Visit Provider Nurse Practitioner Acute Care
DX: J45.41 Moderate persistent asthma with (acute) exacerbation (principal)
CPT/HCPCS: 96372; J2357

== ENCOUNTER → 2022-09-08 | Outpatient (CLI) | payer MEDICARE, OTHER, SELFPAY ==
--- NOTE | 2022-09-08 13:52 | CT_ITS ---
INDICATION: lung cancer, follow up/monitor -- treated with SBRT EXAMINATION: - CT Chest W/O Contrast Injection A radiation dose optimization technique was used for this scan. COMPARISON: Comparison chest CT 05/04/2022. FINDINGS: Noncontrast serial CT axial images through the chest with coronal and sagittal reformatted series. MEDIASTINUM: Moderate coronary artery atherosclerotic calcifications. Noncontrast mediastinum is otherwise unremarkable. LUNG PARENCHYMA: No acute pulmonary parenchymal abnormality. Stable dominant pulmonary nodules: 10 mm posterior right upper lobe pulmonary nodule. 12 mm posterior left lower lobe superior segment pulmonary nodule. 7 mm posterior left upper lobe pulmonary nodule on axial image 42 of series 2. Stable medial left lower lobe 6 mm pulmonary nodule on axial image 98 of series 2. Emphysematous lung changes. PLEURA: No pleural effusion. No pneumothorax. BONES: Osseous structures are unremarkable for age. UPPER ABDOMEN: Small hiatal hernia. CT/Chest without Contrast IMPRESSION: Stable pulmonary nodules from 4 months prior. Electronically Signed: Edi Harley MD at 7:06 EDT ,
== END | disposition home or self-care (01) ==
LOC: CT 13:52
PROVIDERS: PCP Family Medicine; Referring Provider Student in an Organized Health Care Education/Training Program; Visit Provider Student in an Organized Health Care Education/Training Program
DX: C34.32 Malignant neoplasm of lower lobe, left bronchus or lung (principal)
CPT/HCPCS: 71250

== ENCOUNTER 2022-09-14 11:49 | Outpatient (CLI) | payer MEDICARE, OTHER, SELFPAY ==
[2022-09-14 11:54] VITALS: BP 150/70; PULSE 76; RESP 16; TEMP 36.1; O2SAT 97; BMI 38.2
[2022-09-14] MEDS: Omalizumab 150 MG/ML Syringe 300 MG SC (12:09)
== END 2022-09-14 11:50 | disposition home or self-care (01) ==
LOC: MEDOUTP 11:49
PROVIDERS: PCP Family Medicine; Referring Provider Nurse Practitioner Acute Care; Visit Provider Nurse Practitioner Acute Care
DX: J45.41 Moderate persistent asthma with (acute) exacerbation (principal)
CPT/HCPCS: 96372; J2357

== ENCOUNTER → 2022-09-16 | Outpatient (CLI) | payer MEDICARE, OTHER, SELFPAY ==
[2022-09-16 12:38] LABS: Absolute Lymphocyte Count 1.16 X10^3/uL (0.83-4.51); Absolute Neutrophil Count 4.8 X10^3/uL (2.0-7.7); Basophil# 0.03 X10^3/uL; Basophil% 0.4 % (0-1); Hematocrit 42.3 % (37-47); Hemoglobin 13.7 g/dL (12.0-15.0); Lymphocyte # 1.16 X10^3/ul (0.83-4.51); Lymphocyte % 17.3 % (19-41); Mean Corp Hgb Conc 32.4 g/dL (32-36); Mean Corpuscular Hgb 31.1 pg (27.0-32.0); Mean Corpuscular Volume 96.1 fL (81-99); Mean Platelet Vol. 11.5 fl (6.2-12.0); Monocyte# 0.65 X10^3/uL; Monocyte% 9.7 % (0-10); NRBC Flagged by Analyzer 0 % (0-5); Neutrophil # 4.83 X10^3/uL (2.7-7.7); Neutrophil % 72.3 % (47-70); Platelet Count 245 K/mm3 (150-450); RBC Distribution Width CV 14.9 % (11.6-14.6); RBC Distribution Width SD 52.8 fl (35.1-43.9); White Blood Count 6.7 K/mm3 (4.4-11.0)
[2022-09-16 13:05] LABS: ALB/GLOB Ratio 0.9 RATIO (0.9-2.4); AST(SGOT) 18 U/L (15-37); Alanine Aminotransfer ALT/SGPT 20 U/L (13-56); Albumin, Serum 3.4 g/dL (3.2-5.0); Alkaline Phosphatase 86 U/L (45-117); Anion Gap 5 (5-15); BUN 13 mg/dL (7-18); BUN/Creat Ratio 15.6 RATIO (10-20); Calcium,Total 9.2 mg/dL (8.5-10.1); Chloride 104 mmol/L (98-107); Creatinine, Serum 0.84 mg/dL (0.55-1.02); EST Glomerular Filtration Rate 72 mL/min (>60); Est Glom Filt Rate - Afr Amer 87 mL/min (>60); Globulin 3.8 g/dL (2.2-4.2); Glucose 105 mg/dL (74-106); Potassium 3.7 mmol/L (3.5-5.1); Protein, Total 7.2 g/dL (6.4-8.2); Sodium Level 138 mmol/L (136-145)
== END | disposition home or self-care (01) ==
LOC: MTLAB 09:54
PROVIDERS: PCP Family Medicine; Referring Provider Internal Medicine Rheumatology; Visit Provider Internal Medicine Rheumatology
DX: M06.4 Inflammatory polyarthropathy (principal); Z79.899 Other long term (current) drug therapy
CPT/HCPCS: 36415; 80053; 85025

== ENCOUNTER 2022-10-14 13:05 | Outpatient (CLI) | payer MEDICARE, OTHER, SELFPAY ==
[2022-10-14 13:10] VITALS: BP 163/86; PULSE 88; RESP 16; O2SAT 91
[2022-10-14] MEDS: Omalizumab 150 MG/ML Syringe 300 MG SQ (13:48)
== END 2022-10-14 13:06 | disposition home or self-care (01) ==
LOC: MEDOUTP 13:06
PROVIDERS: PCP Family Medicine; Referring Provider Nurse Practitioner Acute Care; Visit Provider Nurse Practitioner Acute Care
DX: J45.41 Moderate persistent asthma with (acute) exacerbation (principal)
CPT/HCPCS: 96372; J2357

== ENCOUNTER 2022-11-13 13:23 | Outpatient (CLI) | payer MEDICARE, OTHER, SELFPAY ==
[2022-11-13 13:41] VITALS: BP 153/81; PULSE 78; RESP 16; O2SAT 95; BMI 38.2
[2022-11-13] MEDS: Omalizumab 150 MG/ML Syringe 300 MG SQ (13:59)
== END 2022-11-13 13:24 | disposition home or self-care (01) ==
LOC: MEDOUTP 13:23
PROVIDERS: PCP Family Medicine; Referring Provider Nurse Practitioner Acute Care; Visit Provider Nurse Practitioner Acute Care
DX: J45.41 Moderate persistent asthma with (acute) exacerbation (principal)
CPT/HCPCS: 96372; J2357

== ENCOUNTER → 2022-12-10 | Outpatient (CLI) | payer MEDICARE, OTHER, SELFPAY ==
[2022-12-10 10:09] LABS: Absolute Lymphocyte Count 1.97 X10^3/uL (0.83-4.51); Absolute Neutrophil Count 5.1 X10^3/uL (2.0-7.7); Basophil# 0.05 X10^3/uL; Basophil% 0.6 % (0-1); Hematocrit 43.4 % (37-47); Hemoglobin 13.4 g/dL (12.0-15.0); Lymphocyte # 1.97 X10^3/ul (0.83-4.51); Lymphocyte % 24.4 % (19-41); Mean Corp Hgb Conc 30.9 g/dL (32-36); Mean Corpuscular Hgb 29.9 pg (27.0-32.0); Mean Corpuscular Volume 96.9 fL (81-99); Mean Platelet Vol. 10.8 fl (6.2-12.0); Monocyte# 0.81 X10^3/uL; NRBC Flagged by Analyzer 0 % (0-5); Neutrophil # 5.08 X10^3/uL (2.7-7.7); Platelet Count 254 K/mm3 (150-450); RBC Distribution Width CV 14.6 % (11.6-14.6); Red Blood Count 4.48 M/mm3 (4.2-5.4); White Blood Count 8.1 K/mm3 (4.4-11.0)
[2022-12-10 11:03] LABS: ALB/GLOB Ratio 0.9 RATIO (0.9-2.4); AST(SGOT) 15 U/L (15-37); Alanine Aminotransfer ALT/SGPT 25 U/L (13-56); Albumin, Serum 3.2 g/dL (3.2-5.0); Alkaline Phosphatase 73 U/L (45-117); Anion Gap 6 (5-15); BUN 14 mg/dL (7-18); BUN/Creat Ratio 16.7 RATIO (10-20); Chloride 103 mmol/L (98-107); Creatinine, Serum 0.84 mg/dL (0.55-1.02); EST Glomerular Filtration Rate 71 mL/min (>60); Est Glom Filt Rate - Afr Amer 86 mL/min (>60); Globulin 3.4 g/dL (2.2-4.2); Glucose 119 mg/dL (74-106); Potassium 3.3 mmol/L (3.5-5.1); Protein, Total 6.6 g/dL (6.4-8.2); Sodium Level 139 mmol/L (136-145)
== END | disposition home or self-care (01) ==
LOC: MTLAB 09:19
PROVIDERS: PCP Family Medicine; Referring Provider Internal Medicine Rheumatology; Visit Provider Internal Medicine Rheumatology
DX: M06.4 Inflammatory polyarthropathy (principal); Z79.899 Other long term (current) drug therapy
CPT/HCPCS: 36415; 80053; 85025

== ENCOUNTER 2022-12-15 09:51 | Outpatient (CLI) | payer MEDICARE, OTHER, SELFPAY ==
[2022-12-15 09:56] VITALS: BP 178/71; PULSE 108; RESP 16; TEMP 35.9; O2SAT 94; BMI 38.2
[2022-12-15] MEDS: Omalizumab 150 MG/ML Syringe 300 MG SQ (10:04)
== END 2022-12-15 09:52 | disposition home or self-care (01) ==
LOC: MEDOUTP 09:51
PROVIDERS: PCP Family Medicine; Referring Provider Nurse Practitioner Acute Care; Visit Provider Nurse Practitioner Acute Care
DX: J45.41 Moderate persistent asthma with (acute) exacerbation (principal)
CPT/HCPCS: 96372; J2357

== ENCOUNTER → 2023-01-05 | Outpatient (CLI) | payer MEDICARE, OTHER, SELFPAY ==
--- NOTE | 2023-01-05 10:08 | VDLE_ITS ---
Reason For Study: Left leg pain RIGHT LEFT CFV is compressible, spontaneous, phasic, CFV is compressible, spontaneous, phasic, competent and demonstrates normal competent, and demonstrates normal augmentation. augmentation. Procedure FV is compressible, spontaneous, phasic, This is a venous duplex using B-mode, color competent and demonstrates normal flow and spectral Doppler. augmentation. Exam performed in department. POP V is compressible, spontaneous, phasic, A preliminary report was called and/or faxed competent and demonstrates normal to Mojgan Mejias LPN. augmentation. T/P Trunk is compressible. PTV is compressible. LT PerV is compressible. Acute superficial vein thrombosis is noted in the GSV throughout. Thrombus is 3.91 cm from junction with CFV. Vein is dilated and NONCOMPRESSIBLE. Thromus filled varicose veins noted in the left distal thigh to mid calf. VL/Venous Duplex US, Unilateral Interpretation Summary Acute superficial vein thrombosis is noted in the left great saphenous vein to within 3.91 cm of the junction with the common femoral vein. Ordering Physician: Sangita Borja Referring Physician: Tiffanie Sharma Performed By: Tlaia Arizmendi RVT
== END | disposition home or self-care (01) ==
LOC: CVS 09:59
PROVIDERS: PCP Family Medicine; Referring Provider Nurse Practitioner Family; Visit Provider Nurse Practitioner Family
DX: M79.604 Pain in right leg (principal)
CPT/HCPCS: 93971

== ENCOUNTER 2023-01-13 09:57 | Outpatient (CLI) | payer MEDICARE, OTHER, SELFPAY ==
[2023-01-13 10:05] VITALS: BP 155/91; PULSE 77; RESP 16; TEMP 35.9; O2SAT 96; BMI 38.2
[2023-01-13] MEDS: Omalizumab 150 MG/ML Syringe 300 MG SQ (10:11)
== END 2023-01-13 09:58 | disposition home or self-care (01) ==
LOC: MEDOUTP 09:57
PROVIDERS: PCP Family Medicine; Referring Provider Nurse Practitioner Acute Care; Visit Provider Nurse Practitioner Acute Care
DX: J45.41 Moderate persistent asthma with (acute) exacerbation (principal)
CPT/HCPCS: 96372; J2357

== ENCOUNTER → 2023-01-15 | Outpatient (CLI) | payer MEDICARE, OTHER, SELFPAY ==
--- NOTE | 2023-01-15 08:34 | CT_ITS ---
Impression distal view INDICATION: follow up treated lung cancer -- please compare to prior EXAMINATION: CT CHEST WITHOUT CONTRAST - CT Chest W/O Contrast Injection TECHNIQUE: Helically acquired images were obtained of the chest. A radiation dose optimization technique was used for this scan. IV Contrast dosage and agent: None. COMPARISON: CT chest September 08, 2022. PET/CT March 25, 2022. FINDINGS: LUNGS, PLEURA AND LARGE AIRWAYS: 3 x 4 mm nodule right upper lobe, axial image 28 is unchanged. 4 x 7 mm nodule right upper lobe, axial image 37 with surrounding groundglass attenuation on reticulations is unchanged. 8 x 3 mm left upper lobe nodule with adjacent spiculations, axial image 37 is unchanged. 9 x 7 mm spiculated nodule left lower lobe, superior segment, axial image 71 is mildly decreased in size, previously measuring 14 x 9 mm. 7 x 7 mm nodule left lower lobe, axial image 92 is unchanged. Advanced emphysematous changes. No consolidation, pleural effusion or pleural thickening. No pneumothorax. THYROID: No thyroid lesions. HEART AND PERICARDIUM: Heart size is normal. No pericardial effusion. Coronary artery calcifications and/or stents. VESSELS: Thoracic aorta is not dilated. Intensive aortic intimal calcifications. Note of two-vessel aortic arch morphology, variant anatomy. MEDIASTINUM AND AELXI: No mediastinal or hilar adenopathy. Esophagus is unremarkable. No hiatal hernia. UPPER ABDOMEN: No acute pathology. BONES: No suspicious lytic or blastic abnormality. Bilateral soft tissue calcifications adjacent to the greater trochanters suggesting calcific tendinopathy. Thin, dense anterior bridging calcification mid thoracic spine suggesting diffuse idiopathic skeletal hyperostosis. [id number] multilevel degenerative endplate changes. Note of a posterior disc osteophyte complex T5-6 level suggesting mild central spinal canal stenosis. CT/Chest without Contrast IMPRESSION: Numerous nodules as above, unchanged or decreased in size compared to prior exam. No new pulmonary nodules. The nodule showing increased activity in the superior segment left lower lobe, on prior comparison PET CT, March 25, 2022, has decreased in size from 14 x 9 mm to 9 x 7 mm. Electronically Signed: El Krishnamurthy DO at 23:42 EST ,
--- NOTE | 2023-01-15 08:40 | RAD_ITS ---
STUDY: X-RAY - RIGHT KNEE REASON FOR EXAM: Female, 72 years old. MEDIAL KNEE PAIN -- CT FIRST TECHNIQUE: 4 view(s) of the knee. COMPARISON: None. FINDINGS: Normal visualized distal femur. Normal visualized proximal tibia and fibula. Normal proximal tibiofibular articulation. There is no demonstrated fracture. Normal medial femorotibial compartment. Normal lateral femorotibial compartment. Normal patellofemoral articulation. There is no demonstrated joint effusion. The soft tissue structures are unremarkable. RAD/Knee 4 or More Views IMPRESSION: Normal x-ray examination of the knee. Electronically Signed: Yuri Denny MD at 22:51 EST ,
== END | disposition home or self-care (01) ==
PROVIDERS: PCP Family Medicine; Referring Provider Student in an Organized Health Care Education/Training Program; Visit Provider Student in an Organized Health Care Education/Training Program
DX: M25.561 Pain in right knee (principal); C34.32 Malignant neoplasm of lower lobe, left bronchus or lung
CPT/HCPCS: 71250; 73564

== ENCOUNTER → 2023-02-03 | Outpatient (CLI) | payer MEDICARE, OTHER, SELFPAY ==
--- NOTE | 2023-02-03 08:49 | VDLE_ITS ---
Reason For Study: HX SVT RIGHT LEFT CFV is compressible, spontaneous, phasic, Acute superficial vein thrombosis is noted in competent and demonstrates normal the GSV originating from ASV at mid thigh and augmentation. extending into the deep system at the SFJ. Procedure Acute deep vein thrombosis is noted in the This is a venous duplex using B-mode, color EIV. It is dilated with intraluminal echoes flow and spectral Doppler. and continuous flow noted in color doppler. Exam performed in department. Acute deep vein thrombosis is noted in the The exam was diagnostic. CFV. It is dilated and NONCOMPRESSIBLE with A preliminary report was called and/or faxed continuous flow noted in color and pulsed to Sangita Borja [employer]ITION [employer]IST / [employer] wave doppler. phone RN. Acute deep vein thrombosis is noted in the Deep Femoral/Profunda Femoral Vein. Intraluminal echoes and rouleaux flow are noted in B mode. FV is compressible and spontaneous with continuous flow noted in pulsed wave and color doppler. POP V is compressible and spontaneous with continuous flow noted in pulsed wave and color doppler. T/P Trunk is compressible. PTV is compressible. LT PerV is compressible. VL/Venous Duplex US, Unilateral Interpretation Summary Acute deep vein thrombosis is noted in the left external iliac vein, common fem oral vein, profunda femoral vein. Acute superficial vein thrombosis is noted in the left saphenofemoral junction, great saphenous vein Ordering Physician: Tiffanie Sharma Referring Physician: Tiffanie Sharma Performed By: Arun Perera RVT
== END | disposition home or self-care (01) ==
LOC: CVS 08:48
PROVIDERS: PCP Family Medicine; Referring Provider Family Medicine; Visit Provider Family Medicine
DX: I82.812 Embolism and thrombosis of superficial veins of left lower extremity (principal)
CPT/HCPCS: 93971

== ENCOUNTER 2023-02-12 10:44 | Outpatient (CLI) | payer MEDICARE, OTHER, SELFPAY ==
[2023-02-12 11:06] VITALS: BP 150/56; PULSE 76; RESP 16; TEMP 35.7; O2SAT 94; BMI 38.2
[2023-02-12] MEDS: Omalizumab 150 MG/ML Syringe 300 MG SQ (11:10)
== END 2023-02-12 10:45 | disposition home or self-care (01) ==
LOC: MEDOUTP 10:45
PROVIDERS: PCP Family Medicine; Referring Provider Nurse Practitioner Acute Care; Visit Provider Nurse Practitioner Acute Care
DX: J45.41 Moderate persistent asthma with (acute) exacerbation (principal)
CPT/HCPCS: 96372; J2357

== ENCOUNTER → 2023-02-12 | Outpatient (CLI) | payer MEDICARE, OTHER, SELFPAY ==
--- NOTE | 2023-02-12 10:29 | BI_ITS ---
MAMMOGRAPHY - BILATERAL SCREENING REASON FOR EXAM: Female, 72 years old. Routine annual screening examination. PERTINENT HISTORY: Grandmother with breast cancer. TECHNIQUE: Digital bilateral breast shayy (3D mammographic acquisition) in the CC and MLO projections. 2-D mediolateral oblique (MLO) and craniocaudad (CC) views of both breasts were obtained. CAD: Full Field Digital Mammography with Computer Added Detection was performed. COMPARISON: Comparison is made with prior study dated February 06, 2021 and November 08, 2018. FINDINGS: Breast Composition: There are scattered areas of fibroglandular density. There are no dominant masses or suspicious calcifications. Stable 4.5 mm x 4.7 mm well-defined nodule in the upper lateral aspect of the right breast suggestive of a small lymph node. Stable fat-containing bilateral axillary lymph nodes. No other significant abnormalities are identified. There has been no significant change since the prior study. BI/SCRN MAMM (CAD)W/SHAYY BILAT IMPRESSION: Stable bilateral screening mammogram. Yearly follow-up mammogram recommended. (A) ASSESSMENT CATEGORY: BIRADS Category 2: Benign. A letter regarding these results will be sent to the patient by the facility within 30 days. Approximately 10% of breast cancers are not detected by mammography. A normal mammogram should not delay biopsy of a clinically suspicious abnormality. [id number] Electronically Signed: Ariel Cleveland MD at 11:08 EST ,
== END | disposition home or self-care (01) ==
LOC: OPBI 10:28
PROVIDERS: PCP Family Medicine; Referring Provider Family Medicine; Visit Provider Family Medicine
DX: Z12.31 Encounter for screening mammogram for malignant neoplasm of breast (principal)
CPT/HCPCS: 77063; 77067

== ENCOUNTER 2023-03-12 10:53 | Outpatient (CLI) | payer MEDICARE, OTHER, SELFPAY ==
[2023-03-12 11:05] VITALS: BP 157/75; PULSE 84; RESP 16; TEMP 36.1; O2SAT 93; BMI 38.2
[2023-03-12] MEDS: Omalizumab 150 MG/ML Syringe 300 MG SQ (11:09)
--- OUTSIDE RECORDS SUMMARY | 2023-03-12 11:26 | XMS RPT_ITS | CCD ---
Author Name Unknown Address [address] [place] [address] Organization [facility] Care Team Providers Care Automation Controls Specialist Name Role Phone Eileen Harrison Unavailable Unavailable Eileen Harrison Unavailable Unavailable Mathew PRECISION ASSEMBLER BENCH, Eileen Little Unavailable Unavaila ble Nataly Escobar Unavailable Unavailable Nataly Escobar Unavailable Unavailable Yensho PRECISION ASSEMBLER BENCH, Marla A Unavailable Unavailab le Eileen Harrison Unavailable Unavailable Yensho PRECISION ASSEMBLER BENCH, Marla A Unavailable Unavailab le Ele Astudillo Unavailable Christina Cordero Unavailable [phone] Andrea Pete Unavailable Getachew Padron Unavailable El Miller Unavailable [facility], [facility] Unavailable Ele Astudillo Unavailable El Tyler Unavailable Unavailable Amadou Jackson Unavailable Michelle Prince Unavailable Polly Corea Unavailable Delphine Ramirez Unavailable Unavailable Gracie Lind Unavailable Unavailable Jose, Omayra Unavailable Unavailable Sheri Stanley Unavailable Unavailable AMITA Mena Unavailable Unavailable Delphine Rivera Unavailable Unavailable eliecer braden Unavailable Unavailable Unavailable Unavailable Yensho PRECISION ASSEMBLER BENCH, Marla A Unavailable Unavailab le Ele Astudillo Attending Unavailable Ele Astudillo Referring Unavailable Baudilio, Ele Consulting Unavailable Ele Astudillo Unavailable JaneenChristina whatley Lety Unavailable Andrea Pete Unavailable Getachew Padron Unavailable El Miller Unavailable [facility], [facility] Unavailable Ele Astudillo Unavailable El Tyler Unavailable Unavailable Amadou Jackson Unavailable Michelle Prince Unavailable Polly Corea Unavailable Kevin Meadows Unavailable Unavailable Messenger, Delphine Unavailable Unavailable Slarb, Gracie Unavailable Unavailable Sheri Stanley L Unavailable Unavailable Gravius, Omayra Unavailable Unavailable Delphine Rivera Unavailable Unavailable Pierre, braden Unavailable Unavailable Unavailable Unavailable Marla Covarrubias LPN Unavailable Unavailab Eileen Paz Unavailable Unavailable Tiffanie Sharma Primary Care Provider Alejandra Hyatt RN Unavailable Unavailable Isckarus [facility], Mansour S Unavailable Tiffanie Sharma MD Primary Care Provider Tiffanie Sharma MD Primary Care Provider ALLYSSA SINGLETARY Referring Unavailable MIEDEL, TIFFANIE E Primary Care Unavailable MIEDEL, TIFFANIE E Primary Care Unavailable MIEDEL, TIFFANIE E Primary Care Unavailable ALLYSSA SINGLETARY Referring Unavailable MIEDEL, TIFFANIE E Primary Care Unavailable ANDREA LAURA Referring Unavailable ANDREA LAURA Attending Unavailable MIEDEL, TIFFANIE Primary Care Unavailable ISCKARUS, MANSOUR S Referring Unavailable ANDREA LAURA Attending Unavailable DAVID TIFFANIE Primary Care Unavailable Allergies Allergy Classification Reported Allergen(s) Allergy Type Date of Onset Reaction(s) Facility (3 sources) Seasonal allergy; Translations: [SEASONAL ALLERGIES] Propensity to adverse reactions 8 Intolerance [facility] Work Phone: NEGATED: Highlighted row has been ruled out! (1 source) allergy to substance 4 [facility] Work Phone: NEGATED: Highlighted row has been ruled out! (1 source) drug allergy [facility] Work Phone: Medications Current Medications Medication Drug Class(es) Dates Sig (Normalized) Sig (Original) amoxicillin 875 mg / clavulanate 125 mg oral tablet (13 sources) Penicillin-class Antibacterial Start: 02-17-2022 End: 02-24-2022 take 1 tablet by mouth twice daily amoxicillin-clav ulanic acid (AUGMENTIN) 875-125 mg per tablet Take 1 tablet by mouth twice daily for 7 days. 14 tablet 0 02/17/2022 02/24/2022 Active Completed/Discontinued Medications Medication Drug Class(es) Dates Sig (Normalized) Sig (Original) acetaminophen 300 mg / HYDROcodone bitartrate 5 mg oral tablet (12 sources) Opioid Agonist Start: 09-04-2014 End: 09-28-2016 take 1 tablet by mouth once as needed, then take 6 tablets by mouth as needed Vicodin 5-300 MG Oral Tablet 1 Tablet Tablet every 6 horus prn for 0 days Quantity: 30 {Tablet} Refills: 0 Ordered: 28-Sep-2016 Gracie Lind LPN Start : 04-Sep-2014 End : 28-Sep-2016 Discontinued 60 actuat aclidinium bromide 0.4 mg/actuat dry powder inhaler (20 sources) Start: 07-30-2016 take 1 puff(s) by inhalation twice daily TUDORZA PRESSAIR 400 MCG/ACT AEPB One puff INH BID ACLIDINIUM BROMIDE [id number] Twan Maynard DO Problems Active Problems Problem Classification Problem Date Documented Da te Episodic/Chronic Abdominal pain (12 sources) Acute abdominal pain; Translations: [Abdominal pain, acute, right upper quadrant] 08-12-2017 Episodic Acute bronchitis (20 sources) Acute bronchitis; Translations: [Acute bronchitis due to other specified organisms] 08-12-2017 Episodic Administrative/social admission (12 sources) Pneumococcal vaccination given; Translations: [Pneumococcal vaccination given] 08-12-2017 Episodic Asthma (20 sources) Asthma; Translations: [Acute exacerbation of asthma] Onset: 12-19-2011 Resolved: 02-11-2009 06-29-2016 Chronic Past or Other Problems Problem Classification Problem Date Documented Da te Episodic/Chronic Esophageal disorders (6 sources) Esophageal disorders External Injury - Fall (12 sources) Accidental fall ; Translations: [Fall, accidental] 08-12-2017 Influenza (6 sources) Influenza Mood disorders (13 sources) Mood disorders Onset: 04-22-2022 04-22-2022 Other circulatory disease (12 sources) Other specified symptoms and signs involving the circulatory and respiratory systems; Translations: [Abnormal chest sounds] Resolved: 06-24-2015 06-01-2016 Episodic Results Test Name Value Interpretation Reference Range Facil ity Vital Signs Date Time Vital Sign Value Performing Clinician Facility 12-03-2022 10:07-0400 Body temperature 97.81 [degF] Allyssa Singletary APRN.SAW FEEDER Work Phone: [facility] 12-03-2022 10:07-0400 Body weight 109.86 kg Allyssa Singletary APRN.SAW FEEDER Work Phone: [facility] 12-03-2022 10:07-0400 Diastolic blood pressure 82 mm[Hg] Allyssa Singletary APRN.SA[employer]EDER Work Phone: [facility] 12-03-2022 10:07-0400 Heart rate 82 /min Allyssa Singletary APRN.[employer]ER Work Phone: [facility] 12-03-2022 10:07-0400 Respiratory rate 16 /min Allyssa Singletary APRN.SAW FEEDER Work Phone: [facility] 12-03-2022 10:07-0400 SaO2% (BldA) [Mass fraction] 95 % Allyssa Singletary EDITOR INDEX.[employer] Work Phone: [facility] 12-03-2022 10:07-0400 Systolic blood pressure 126 mm[Hg] Allyssa Singletary APRN.SAW FEEDER Work Phone: [facility] 04-22-2022 11:46-0500 Diastolic blood pressure 68 mm[Hg] Andrea Laura MD Work Phone: [facility] 04-22-2022 11:46-0500 Heart rate 80 /min Andrea Laura MD Work Phone: [facility] 04-22-2022 11:46-0500 Systolic blood pressure 140 mm[Hg] Andrea Laura MD Work Phone: [facility] 04-22-2022 11:10-0500 Body height 165.1 cm Andrea Laura MD Work Phone: [facility] 04-22-2022 11:10-0500 Body mass index (BMI) [Ratio] 39.97 kg/m2 Andrea Laura MD Work Phone: [facility] 04-22-2022 11:10-0500 Body temperature 98.2 [degF] Andrea Laura MD Work Phone: [facility] 04-22-2022 11:10-0500 Body weight 108.95 kg Andrea Laura MD Work Phone: [facility] 04-22-2022 11:10-0500 Respiratory rate 18 /min Andrea Laura MD Work Phone: [facility] 04-22-2022 11:10-0500 SaO2% (BldA) [Mass fraction] 95 % Andrea Laura MD Work Phone: [facility] 02-17-2022 10:45-0500 Body temperature 97.39 [degF] Allyssa Singletary APRN.SAW FEEDER Work Phone: [facility] 02-17-2022 10:45-0500 Body weight 110.68 kg Allyssa Singletary APRN.SAW FEEDER Work Phone: [facility] 02-17-2022 10:45-0500 Diastolic blood pressure 88 mm[Hg] Allyssa Singletary APRN.SAW FEEDER Work Phone: [facility] 02-17-2022 10:45-0500 Heart rate 96 /min Allyssa Singletary APRN.SA[employer] FEEDER Work Phone: [facility] 02-17-2022 10:45-0500 Respiratory rate 20 /min Allyssa Singletary APRN.SA[employer] FEEDER Work Phone: [facility] 02-17-2022 10:45-0500 SaO2% (BldA) [Mass fraction] 92 % Allyssa Singletary APRN.SAW FEEDER Work Phone: [facility] 02-17-2022 10:45-0500 Systolic blood pressure 172 mm[Hg] Allyssa Singletary APRN.SAW FEEDER Work Phone: [facility] 08-08-2018 14:39-0400 BMI (Body Mass Index) 40.94 kg/m2 Ele Astudillo [facility] Work Phone: 08-08-2018 14:39-0400 Body Temperature 96.9 [degF] Ele Baudilio [facility] Work Phone: Encounters Encounter Date Encounter Type Care Provider Facility Start: 12-03-2022 End: 12-03-2022 ambulatory TIFFANIE Radha UTJOSEE Facility:[facility] Start: 12-03-2022 End: 12-03-2022 Patient encounter procedure Allyssa Singletary APRN.SAW FEEDER Work Phone: [facility] Procedures Date Procedure Procedure Detail Performing Clinician Start: 12-03-2022 Radiologic exam chest 2 views Allyssa Singletary APRN.SAW FEEDER Work Phone: Start: 02-17-2022 Radiologic exam chest 2 views Allyssa Singletary APRN.SAW FEEDER Work Phone: Start: 09-28-2018 End: 09-28-2018 Pulmonary Visit Report Comments: See Note; NOTES: [facility] [address] [place] [address] OFFICE VISIT Date of Service: 09/28/18 MR#: [id number] Acct: [id number] Name: TEAGAN VAUGHAN Rep #: [id number] : 1950 Provider: INDIRA Butts Age/Sex: 67/F Location: [facility] Status: Signed Assessment AND Plan 1. Asthma-COPD overlap syndrome J44.9 Plan She does not appear to be in exacerbation of her asthma/COPD overlap syndrome today. However, she does not have optimal control as she has had an additional exacerbations since her last office visit. Will step up therapy to include cetirizine daily. Otherwise, continue all maintenance medications. No additional testing at this time. Follow-up with Dr. Maynard in 3 months. Consider management with Biologics if patient continues to have exacerbations despite maximal medical management. She was provided with education materials on Xolair today for consideration. Orders Orders: 2. Chronic respiratory failure with hypoxia J96.11 Plan The patient is using and benefiting from oxygen. Continue to utilize to maintain a saturation of 89-92%. Follow-up in 3 months. 3. ISIDRO (obstructive sleep apnea) G47.33 Plan Patient is using and benefiting from Pap therapy. No indication for titration study at this time. Continue to encourage weight loss. Contact the office for any new or worsening symptoms in the meantime. Follow-up in 3 mos. 4. BMI 37.0-37.9, adult Z68.37 Plan Continue to encourage weight loss. Plan Detail Other Medications New: Follow Up 3 Months (DMB) HPI 3 M FU: Chief Complaint: Wheezing HPI Comments Details: This is a 67 year old very pleasant F, here to follow up for sleep apnea, as well as chronic hypoxic respiratory failure and asthma/COPD overlap syndrome. She is ambulatory and currently on room air. Since her last office visit she was treated for bronchitis. She was prescribed an antibiotic, cannot remember if she was prescribed prednisone or not. She was treated through an urgent care, as her symptoms developed over a weekend. Currently she is compliant with Singulair daily, Stiolto daily, Symbicort 2 puffs twice daily. She does report rinsing her mouth out after each use of Symbicort. She denies any medication side effects such as sore throat or thrush. She is also compliant with Flonase daily. Recently she has not needed to utilize her rescue inhaler. Currently she has shortness of breath on exertion only. She is not currently having any cough, but does have some hoarseness. She denies any chest pain or palpitations. Has occasional wheezing and chest tightness. She continues to have some postnasal drip however it is improved since the use of Flonase. She denies any fever, chills or body aches. She is compliant with submental oxygen with ambulation. She does check her oxygen saturations occasionally at home, with her portable pulse oximeter. Current use of pressure support therapy is on average of 6 hours per night with current settings of 16/12 cmH2O. TEAGAN denies any daytime somnolence, dry mouth in the morning, nocturia, snoring through the mask, morning headaches or difficulty with mask leaks. TEAGAN reports feeling rested in the morning and is benefitting from current therapy. Compliance report was reviewed and shows 100% compliance, AHI is well-controlled with an average of 0.4 events per hour and leaks do not appear to be a consistent problem. Pulmonary stress test completed on September 23, 2018 shows that the patient did desaturate below 8 9% at the second minute of testing. She does require 2 L of nasal cannula oxygen with ambulation. She ambulated a total of 573 feet over the course of 6 minutes. Intake Vital Signs09/28/18 Body Mass Index (BMI) 40.9 09/28/18 Height 5 ft 5 in 09/28/18 Weight: 230 lb Intake Visit Reasons: 3 M FU [facility] Vendor: BENJAMIN Accompanied by: Self Allergies No Known Allergies Allergy (Verified 09/28/18 08:10) Medications Levothyroxine [Synthroid] 25 mcg PO DAILY 06/10/16 [History Confirmed 09/28/18] Montelukast [Singulair] 10 mg PO DAILY 06/10/16 [History Confirmed 09/28/18] citalopram 10 mg tablet 10 mg PO QDAY 05/28/17 [History Confirmed 09/28/18] lansoprazole 15 mg capsule,delayed release 15 mg PO QDAY 05/28/17 [History Confirmed 09/28/18] rizatriptan 10 mg tablet 10 mg PO ONCE PRN 05/28/17 [History Confirmed 09/28/18] zolpidem 10 mg tablet 10 mg PO QHS tab 05/28/17 [History Confirmed 09/28/18] metoprolol succinate ER 25 mg tablet,extended release 24 hr 25 mg PO QDAY tab 06/01/17 [History Confirmed 09/28/18] tiotropium bromide 2.5 mcg/actuation mist for inhalation 2 puff INHALATION Q24H #1 device 06/01/17 [Rx Confirmed 09/28/18] albuterol sulfate 1.25 mg/3 mL solution for nebulization 1.25 mg INHALATION Q4H PRN #180 vial 08/23/17 [Rx Confirmed 09/28/18] Handicap Placcard #1 ea 09/07/17 [Rx Confirmed 09/28/18] fluticasone propionate 50 mcg/actuation nasal spray,suspension 2 spray INTRANASAL QDAY #16 g 11/10/17 [Rx Confirmed 09/28/18] albuterol sulfate HFA 90 mcg/actuation aerosol inhaler 2 puff INHALATION Q4H PRN #1 device 02/24/18 [Rx Confirmed 09/28/18] budesonide-formoterol HFA 160 mcg-4.5 mcg/actuation aerosol inhaler 2 puff PO BID #1 device 07/29/18 [Rx Confirmed 09/28/18] cetirizine 10 mg capsule 10 mg PO HS #30 cap 09/28/18 [Rx Confirmed 09/28/18] [facility] Medical History BMI 37.0-37.9, adult (Chronic) Hypothyroidism (Chronic) Acute asthma exacerbation (Acute) Cough (Acute) Fatigue (Acute) Hypoxia (Acute) Pneumonia (Acute) Shortness of breath (Acute) Allergic rhinitis (Chronic) Asthma (Chronic) COPD (chronic obstructive pulmonary disease) (Chronic) Depression (Chronic) HTN (hypertension) (Chronic) Postnasal drip (Chronic) H/O: hysterectomy (Resolved) Surgical History H/O thumb surgery (Resolved) History of appendectomy (Resolved) TMJ surgery (Resolved) Family History Mother Ovarian cancer Brother Brain cancer Grandmother Breast cancer Social History (Updated 09/28/18 @ 09:15 by INDIRA Cisneros) Smoking Status: Former smoker quit date: 03/01/07 pack-years: 23 second hand exposure: Yes alcohol intake: never substance use type: does not use Review of Systems Const CONSTITUTIONAL: No anorexia, No body ache, No chills, No daytime sleepiness, No fever(s), No night sweats, No stops breathing during sleep, No weight loss, No weight gain, No sleeping in chair, No orthopnea, No fatigue, No headache(s), No frequent colds, No seasonal allergies, No other EETM Ear Nose Throat Mouth: No hoarseness, No Dry mouth in morning, No change in vision, No itchy eyes, No eye pain, No Swallowing Difficulty, No ear pain, No nose bleed, No headache(s), No mouth pain, No nasal congestion, No nasal discharge, No sinus pain, No sinus pressure, No sore throat, No other Cardio Cadriovascular: No chest pain, No chest pain at rest, No chest pain with activity, No irregular heart rhythm, No shortness of breath when lying down, No palpitations, No other Resp Respiratory: Yes as per HPI, No shortness of breath at rest, No pain with cough, No chest congestion, No cough, No chest tightness, No pain on inspiration, No Inhalers, No Increase use of Rescue Inhalers, No snoring, No apnea, Yes other (GARG) Gastro Gastrointestional: Negative bloody stools, change in appetite, difficulty swallowing, reflux, hematemesis, melena stool, loose stool, constipation or other Genitourinary: Negative blood in urine, nocturia, pain with urination or other Musc Musculoskeletal: Negative body pain, back pain, neck pain or other Skin/Breast Skin/Breast: No dry skin, No itching, No unusual bruising, No breast lump, No other Neuro Neurological: Negative restless legs, confusion, weakness or other Psych Psychocological: Negative abnormal sleep pattern, anxiety, thoughts of hurting self/others, hopelessness or other Lymph Lymphatic: No easy bleeding, No easy bruising, No other Exam Const Constitutional: Positive conversant, cooperative, in no acute respiratory distress, well developed, well nourished, good hygiene and obese Head Head: Yes normocephalic, Yes atraumatic, No cyanosis of lips/distal nose Eyes Eye: Positive clear conjunctiva; negative nystagmus or scleral abnormality Ears Ear: Positive hearing normal and external ears normal; negative hard of hearing Nose Nose: Yes external nose normal Mouth Mouth: Positive oral mucosae normal and posterior oropharynx is adequate; negative no lesions, oral thrush present or post nasal drip Mallampati Score: III: Mallampati Score Neck Neck: Positive normal visual inspection, thick neck and trachea midline; negative lymphadenopathy Chest Wall Chest: Positive symmetric chest movement Normal AP diameter. Resp lung sounds: Positive diminished, wheezes, wheeze present on forced exhalation, normal expiratory time and normal respiratory effort; negative rhonchi or rales Cardio Cardiac: Positive regular rate, regular rhythm, S1 normal and S2 normal; negative murmur, rub or gallop GI GI: Positive normal to inspection and obese Soft without distention Genitourinary: Positive deferred Musc Musculoskeletal: Positive steady gait Skin Pulmonary Skin Exam: Positive intact; negative lesion, rash, ulcers or dermal atrophy Pulses Pulse: Yes radial pulses present Extremities Extremities: No capillary refill normal, No clubbing, No cyanosis, No edema Neuro Neurologic: Yes no focal neuro deficits, Yes conversant, Yes cooperative, Yes normal cognition, Yes normal coordination, Yes normal concentration, Yes understands questions, No tremor Lymph Lymphatic: No lymphadenopathy, No tenderness, No cervical adenopathy Psych Appearance: Positive grossly normal, eye contact and well kempt Mental Status: Positive mental status grossly normal Mood: Positive congruent mood Affect: Positive normal affect Office Procedures NIOX NIOX Result NIOX: 16 Coding Level of Care Code Off vis,est,level 4 Diagnoses Asthma-COPD overlap syndrome J44.9 Chronic respiratory failure with hypoxia J96.11 ISIDRO (obstructive sleep apnea) G47.33 BMI 37.0-37.9, adult Z68.37 09/28/18 0915 <Electronically signed by Marta JACOBSON> Date Marta JACOBSON Cosigner Signature: Date (if applicable) CC: Ele Pendleton Start: 09-23-2018 End: 09-23-2018 6 Minute Walk Test Comments: See Note; NOTES: [facility]/Neurology [address] [place] [address] MR#: [id number] Acct: [id number] Name: TEAGAN VAUGHAN Rep #: [id number] : 1950 67 From: Woody Galvez MD Referring Dr: Twan Maynard DO Status: REG CLI Location: PSN Date: Sex: F C PSN 6 Minute Walk Test - 6 Minute Walk Test 6 Minute Walk Test: 6 Minute Walk Test PSN:6-Minute Walk Test Start: 09/23/18 09:23 Freq: Status: Active Protocol: [id number] Document 09/23/18 09:23 [facility] (Rec: 09/23/18 09:31 [facility] [id number]) 6 Minute Walk Test Date Performed 09/23/18 Time Performed 09:00 Height 5 ft 5 in Weight: 106.594 kg Weight in Pounds 235.[address]: Twan Maynard Assistive device used: None Pre-test Oxygen Delivery Method Room Air Pulse Ox (%) 96 Pulse Rate (60-100 beats/min) 94 Dyspnea Pamella Scale (0-10) 3 Reported Symptoms Increased Work of Breathing 1st minute Oxygen Delivery Method Room Air Pulse Ox (%) 93 Pulse Rate (60-100 beats/min) 100 Dyspnea Pamella Scale (0-10) 4 Reported Symptoms Increased Work of Breathing 2nd minute Oxygen Delivery Method Room Air Pulse Ox (%) 87 Pulse Rate (60-100 beats/min) 118 H Dyspnea Pamella Scale (0-10) 5 Number of Rests Taken 1 Reported Symptoms Increased Work of Breathing 3rd minute Oxygen Flow Rate (L/min) (L/min) 2 Oxygen Delivery Method Nasal Cannula Pulse Ox (%) 93 Pulse Rate (60-100 beats/min) 117 H Dyspnea Pamella Scale (0-10) 5 Reported Symptoms Increased Work of Breathing 4th minute Oxygen Flow Rate (L/min) (L/min) 91 Oxygen Delivery Method Nasal Cannula Pulse Ox (%) 91 Pulse Rate (60-100 beats/min) 120 H Dyspnea Pamella Scale (0-10) 5 Reported Symptoms Increased Work of Breathing 5th minute Oxygen Flow Rate (L/min) (L/min) 2 Oxygen Delivery Method Nasal Cannula Pulse Ox (%) 90 Pulse Rate (60-100 beats/min) 124 H Dyspnea Pamella Scale (0-10) 6 Number of Rests Taken 1 Reported Symptoms Increased Work of Breathing 6th minute Oxygen Flow Rate (L/min) (L/min) 2 Oxygen Delivery Method Nasal Cannula Pulse Ox (%) 89 Pulse Rate (60-100 beats/min) 128 H Dyspnea Pamella Scale (0-10) 6 Reported Symptoms Increased Work of Breathing Post-test Oxygen Flow Rate (L/min) (L/min) 2 Oxygen Delivery Method Nasal Cannula Pulse Ox (%) 97 Pulse Rate (60-100 beats/min) 96 Dyspnea Pamella Scale (0-10) 3 Reported Symptoms Increased Work of Breathing Full Laps Walked 9 Partial Lap, Number of Tiles Walked 42 Total Distance Walked (ft) 573 09/23/18 09:28 Cardiopulmonary Services by Annita Corrigan PATIENT ARRIVED ON ROOM AIR WITH HER OWN PORTABLE O2 TANK FROM [employer]. TEST BEGAN ON ROOM AIR. PATIENT PLACED ON 2LPM DEMAND FLOW AT 2MIN D/T SPO2 87% RA. REMAINDER OF TESTING DONE ON 2LPM. RE-EDUCATED PT ON BENEFITS OF CONTINUING TO EXERCISE AT HOME SINCE D/C FROM PULMONARY REHAB PROGRAM Initialized on 09/23/18 09:28 - END OF NOTE - Interpretation Interpretation: The patient was noted to be 96% on room air at rest. With ambulation, patient desaturated to 87% in the second minute. Patient was placed on 2 L nasal cannula with improvement to 93%. The patient was then able to complete 6 minutes of walking with acceptable oxygen saturations. In total, patient traveled only 573 feet over the course of 6 minutes with no assistive devices and 2 breaks. Patient did have significant tachycardia of 128 bpm. These findings are consistent with a respiratory limitation exercise tolerance. - Recommendations Recommendations: The patient requires no supplemental oxygen at rest, but should be using 2 L nasal cannula oxygen with ambulation. 09/23/18 1104 <Electronically signed by Woody Galvez MD> Date Woody Galvez MD CC: Date Dictated: 09/23/18 1103 Date Transcribed: 09/23/181102 Commercial Marketing Specialist: Woody Galvez MD Signed Ele Astudillo Start: 06-16-2018 End: 06-16-2018 Pulmonary Visit Report Comments: See Note; NOTES: [facility] [place] [address] [place] [address] OFFICE VISIT Date of Service: 06/16/18 MR#: [id number] Acct: [id number] Name: TEAGAN VAUGHAN Rep #: [id number] : 1950 Provider: Twan Maynard D.O. Age/Sex: 67/F Location: [facility] Status: Signed Assessment AND Plan 1. Asthma-COPD overlap syndrome J44.9 Plan The patient does appear to have an overlap between stage III COPD and asthma. She is currently on maximal inhaler therapy. She is already completed pulmonary rehab. Although her last walking oximetry study in 2017 showed the need for 2 L/min of supplemental oxygen with exertion, the patient has been noncompliant with its use. I do suspect that she would benefit significantly from the use of supplemental oxygen with exertion. She will be continued on her current inhaler regimen. If the patient remains symptomatic despite the use of supplemental oxygen, consideration can be given to potential Xolair therapy, as she was documented to have an elevated IgE level previously. 2. ISIDRO (obstructive sleep apnea) G47.33 Plan The patient has been compliant with the use of nocturnal BiPAP with a pressure support of 16/12 centimeters of water, and appears to be benefiting clinically from its use. This will be continued without change. 3. Chronic respiratory failure with hypoxia J96.11 2 L with exertion Plan The patient has been noncompliant with the use of exertional supplemental oxygen as prescribed. The importance of compliance with the use of supplemental oxygen was explained to the patient today. We will plan to obtain a repeat 6-minute walk test prior to her follow-up office visit. Orders Orders: Plan Detail Follow Up 3 Months (DMB) HPI HPI Comments Details: The patient is a 67-year-old female who presents to the clinic today for a routine scheduled follow-up office visit. If you recall, I initially met the patient when she was admitted to the hospital on May 2016, during which time she was treated for a presumptive asthma exacerbation. The patient has a prior smoking history of approximately 30 pack years, having quit completely in 2008. Pulmonary function testing completed in June 2016 showed evidence of a severe large airways obstructive ventilatory defect with an associated response to aerosolized bronchodilators. There was evidence of hyperinflation, air trapping and a moderate reduction in diffusing capacity. She also has a known history of seasonal allergic rhinitis. She has had positive RAST testing previously. Her serum IgE level was also noted to be 121. Surface echocardiogram completed in July 2016 revealed normal LV function with an ejection fraction of 60%. The patient has been followed by ENT and is currently receiving allergy injections. She has been maintained on a triple therapy inhaler regimen with Symbicort, Spiriva and Ventolin. The patient also has known obstructive sleep apnea, based off of polysomnogram completed in June 2017, for which the patient had an overall apnea-hypopnea index of 40.2 events per hour. She underwent a titration study in July 2017, for which it was recommended that she be placed on bilevel therapy with a pressure support setting of 22/18 cm of water with humidification. Laboratory Tests IgE 140 H Aspergillus flavus Ab Negative Aspergill fumigatus Ab Negative Aspergillus niger Ab Negative She is currently prescribed 2 L/min of supplemental oxygen with exertion. She has already completed pulmonary rehabilitation. The patient's nocturnal compliance report was personally reviewed at today's office visit. Over the last 30 days, she has demonstrated an overall compliance rate of 100%. She is currently utilizing her nocturnal BiPAP on average 6.5 hours nightly. She has a prescribed pressure support of 16/12 centimeters of water. She has a residual AHI of 0.2 with occasional air leaks noted. She is currently utilizing a full facemask and receives her equipment through [employer]. Today, the patient reports continued shortness of breath with physical exertion. She has remained compliant with the use of Symbicort and Spiriva daily. She is currently utilizing her rescue inhaler on average 4 times per day. She continues to receive allergy immunotherapy. Unfortunately, the patient has not been utilizing her supplemental oxygen, as was prescribed previously. It was explained to her that her exertional dyspnea symptoms may be nothing more than hypoxia that could be corrected with supplemental oxygen utilization. She has remained compliant with the use of BiPAP and appears to be benefiting clinically from its use. Her weight remains stable. She has not experienced any recent exacerbations. She denies any significant chest tightness or wheezing. Intake Vital Signs06/16/18 Height 5 ft 5 in 06/16/18 Weight: 246 lb Intake Visit Reasons: 6 M FU [facility] Vendor: [employer] Accompanied by: Self Allergies No Known Allergies Allergy (Verified 06/16/18 09:01) Medications Levothyroxine [Synthroid] 25 mcg PO DAILY 06/10/16 [History Confirmed 06/16/18] Montelukast [Singulair] 10 mg PO DAILY 06/10/16 [History Confirmed 06/16/18] citalopram 10 mg tablet 10 mg PO QDAY 05/28/17 [History Confirmed 06/16/18] lansoprazole 15 mg capsule,delayed release 15 mg PO QDAY 05/28/17 [History Confirmed 06/16/18] rizatriptan 10 mg tablet 10 mg PO ONCE PRN 05/28/17 [History Confirmed 06/16/18] zolpidem 10 mg tablet 10 mg PO QHS tab 05/28/17 [History Confirmed 06/16/18] metoprolol succinate ER 25 mg tablet,extended release 24 hr 25 mg PO QDAY tab 06/01/17 [History Confirmed 06/16/18] tiotropium bromide 2.5 mcg/actuation mist for inhalation 2 puff INHALATION Q24H #1 device 06/01/17 [Rx Confirmed 06/16/18] albuterol sulfate 1.25 mg/3 mL solution for nebulization 1.25 mg INHALATION Q4H PRN #180 vial 08/23/17 [Rx Confirmed 06/16/18] Handicap Placcard #1 [id number] 09/07/17 [Rx Confirmed 06/16/18] fluticasone propionate 50 mcg/actuation nasal spray,suspension 2 spray INTRANASAL QDAY #16 g 11/10/17 [Rx Confirmed 06/16/18] budesonide-formoterol HFA 160 mcg-4.5 mcg/actuation aerosol inhaler 2 puff PO BID #1 device 01/06/18 [Rx Confirmed 06/16/18] albuterol sulfate HFA 90 mcg/actuation aerosol inhaler 2 puff INHALATION Q4H PRN #1 device 02/24/18 [Rx Confirmed 06/16/18] [facility] Medical History BMI 37.0-37.9, adult (Chronic) Hypothyroidism (Chronic) Acute asthma exacerbation (Acute) Cough (Acute) Fatigue (Acute) Hypoxia (Acute) Pneumonia (Acute) Shortness of breath (Acute) Allergic rhinitis (Chronic) Asthma (Chronic) COPD (chronic obstructive pulmonary disease) (Chronic) Depression (Chronic) HTN (hypertension) (Chronic) Postnasal drip (Chronic) H/O: hysterectomy (Resolved) Surgical History H/O thumb surgery (Resolved) History of appendectomy (Resolved) TMJ surgery (Resolved) Family History Mother Ovarian cancer Brother Brain cancer Grandmother Breast cancer Social History Smoking Status: Former smoker quit date: 03/01/07 pack-years: 23 second hand exposure: Yes alcohol intake: never substance use type: does not use Review of Systems Const CONSTITUTIONAL: No anorexia, No body ache, No chills, No daytime sleepiness, No fever(s), No night sweats, No stops breathing during sleep, No weight loss, No weight gain, No sleeping in chair, No orthopnea, No fatigue, No headache(s), No frequent colds, No seasonal allergies, No other EETM Ear Nose Throat Mouth: No hoarseness, No Dry mouth in morning, No change in vision, No itchy eyes, No eye pain, No Swallowing Difficulty, No ear pain, No nose bleed, No headache(s), No mouth pain, No nasal congestion, No nasal discharge, No sinus pain, No sinus pressure, No sore throat, No other Cardio Cadriovascular: No chest pain, No chest pain at rest, No chest pain with activity, No irregular heart rhythm, No shortness of breath when lying down, No palpitations, No other Resp Respiratory: Yes as per HPI, No shortness of breath at rest, No pain with cough, No chest congestion, Yes cough (INSTALLER), No chest tightness, No pain on inspiration, No Inhalers, No Increase use of Rescue Inhalers, No snoring, No apnea, No other Gastro Gastrointestional: Negative bloody stools, change in appetite, difficulty swallowing, reflux, hematemesis, melena stool, loose stool, constipation or other Genitourinary: Negative blood in urine, nocturia, pain with urination or other Musc Musculoskeletal: Negative body pain, back pain, neck pain or other Skin/Breast Skin/Breast: No dry skin, No itching, No unusual bruising, No breast lump, No other Neuro Neurological: Negative restless legs, confusion, weakness or other Psych Psychocological: Negative abnormal sleep pattern, anxiety, thoughts of hurting self/others, hopelessness or other Lymph Lymphatic: No easy bleeding, No easy bruising, No other Exam Const Constitutional: Positive conversant, cooperative, in no acute respiratory distress, well developed, well nourished, good hygiene and obese Head Head: Yes normocephalic, Yes atraumatic, No cyanosis of lips/distal nose Eyes Eye: Positive clear conjunctiva; negative nystagmus or scleral abnormality Ears Ear: Positive hearing normal and external ears normal; negative hard of hearing Nose Nose: Yes external nose normal Mouth Mouth: Positive oral mucosae normal and posterior oropharynx is adequate; negative no lesions or post nasal drip Mallampati Score: III: Mallampati Score Neck Neck: Positive normal visual inspection, thick neck and trachea midline; negative lymphadenopathy Chest Wall Chest: Positive symmetric chest movement Normal AP diameter. Resp lung sounds: Positive diminished diminished: Positive global; negative wheezes, rhonchi or rales Cardio Cardiac: Positive regular rate, regular rhythm, S1 normal and S2 normal; negative murmur, rub or gallop GI GI: Positive obese Soft without distention Genitourinary: Positive deferred Musc Musculoskeletal: Positive steady gait Skin Pulmonary Skin Exam: Positive intact; negative lesion, rash, ulcers or dermal atrophy Pulses Pulse: Yes Pedal pulses present: Extremities Extremities: No clubbing, No cyanosis, No edema Neuro Neurologic: Yes no focal neuro deficits, Yes conversant, Yes cooperative, Yes normal cognition Lymph Lymphatic: No lymphadenopathy Psych Appearance: Positive grossly normal Mental Status: Positive mental status grossly normal Mood: Positive congruent mood Affect: Positive normal affect Coding Level of Care Code Off vis,est,level 3 Diagnoses Asthma-COPD overlap syndrome J44.9 ISIDRO (obstructive sleep apnea) G47.33 Chronic respiratory failure with hypoxia J96.11 06/16/18 0944 <Electronically signed by Twan Maynard DO> Date Twan Maynard DO Cosigner Signature: Date (if applicable) CC: Ele Pendleton Start: 11-09-2017 End: 11-09-2017 Foot min 3 Views Comments: See Note; NOTES: [facility] Imaging Services [address] [place] [address] Foot min 3 Views MR#: [id number] Acct: [id number] Name: TEAGAN VAUGHAN Rep #: [id number] : 1950 F 66 From: Gabriela Ruiz MD PCP: Ele Astudillo DO Status: REG CLI Study: Foot min 3 Views Date of Exam: 11/09/17 Exam# [id number] Ordering Dr: Delphine Rivera NP-[place] STUDY: X-RAY - RIGHT FOOT CLINICAL: Female, 66 years old. Pain top of foot TECHNIQUE: 3 view(s) of the foot. COMPARISON: None. FINDINGS: There is a plantar spur. The bones are diffusely osteopenic. There is no visualized acute or chronic fracture. Normal visualized subtalar, talonavicular, calcaneocuboid, tarsal and tarsometatarsal articulations. There is demineralization of the metatarsi. Normal metatarsophalangeal joint of the great toe. Normal tibial and fibular sesamoid bones. Normal interphalangeal joint of the great toe. Normal phalanges of the great toe. Normal second through fifth metatarsophalangeal joints. Normal interphalangeal joints and phalanges of the lesser toes. The soft tissue structures are unremarkable. RAD/Foot min 3 Views IMPRESSION: Bony osteopenia. Calcaneal spur. Electronically Signed: Gabriela Ruiz MD at 18:36 EDT Tel , Service support , CC: INDIRA Rivera; Ele Astudillo DO Commercial Marketing Specialist: Signed Delphine Rivera Start: 11-03-2017 End: 11-03-2017 Pulmonary Visit Report Comments: See Note; NOTES: [facility] [address] [place] [address] OFFICE VISIT Date of Service: 11/03/17 MR#: [id number] Acct: [id number] Name: TEAGAN VAUGHAN Rep #: [id number] : 1950 Provider: Marta Butts Age/Sex: 66/F Location: [facility] Status: Signed Assessment AND Plan 1. ISIDRO (obstructive sleep apnea) G47.33 Plan Patient is using and benefiting from Pap therapy. No indication for titration study at this time. Continue to encourage weight loss. Contact the office for any new or worsening symptoms in the meantime. Follow-up in 6 months. 2. Stage 3 severe COPD by GOLD classification J44.9 Plan High-dose flu vaccine administered today. Plan Detail Other Orders Orders: Other Medications Discontinued: flu vacc (65yr up)-MF59C(PF) 45 mcg(15 mcgx3)/0.50.5 mL IM ONCE Z23 Marla Yensho mL IM syringe Discontinued Reason: Office Medicatio n has been Documented as given Follow Up 6 Months (DMB) HPI F/U for ins. for Pap: Chief Complaint: Sleep apnea follow-up HPI Comments Details: This is a 66 year old F, here to follow up for sleep apnea. Current use of pressure support therapy is on average of 4 hours 42 minutes per night with current settings of 16/12 cmH2O. TEAGAN denies any daytime somnolence, dry mouth in the morning, nocturia, snoring through the mask, morning headaches or difficulty with mask leaks. TEAGAN reports feeling rested in the morning and is benefitting from current therapy. Compliance report was reviewed and shows 100% compliance, average AHI is 0.6 events per hour and leaks do not appear to be a consistent issue. Currently she denies any shortness of breath at rest or during conversation, continues to experience shortness of breath on exertion. She has some mild complaints of lower extremity edema. She denies any wheezing, chest tightness, chest pain or palpitations. She has not expressed any fever, chills or body aches. She denies any cough, sputum production or hemoptysis. See complete review of systems. Intake Vital Signs11/03/17 Height 5 ft 5 in 11/03/17 Weight: 240 lb Intake Visit Reasons: F/U for ins. for Pap Chief Complaint: Daytime hypersomnia DME Vendor: [employer] Accompanied by: Self Allergies No Known Allergies Allergy (Verified 09/07/17 09:16) Medications Levothyroxine [Synthroid] 25 mcg PO DAILY 06/10/16 [History Confirmed 09/07/17] Montelukast [Singulair] 10 mg PO DAILY 06/10/16 [History Confirmed 09/07/17] citalopram 10 mg tablet 10 mg PO QDAY 05/28/17 [History Confirmed 09/07/17] fluticasone 50 mcg/actuation nasal spray,suspension 2 spray INTRANASAL QDAY 05/28/17 [History Confirmed 09/07/17] lansoprazole 15 mg capsule,delayed release 15 mg PO QDAY 05/28/17 [History Confirmed 09/07/17] rizatriptan 10 mg tablet 10 mg PO ONCE PRN 05/28/17 [History Confirmed 09/07/17] zolpidem 10 mg tablet 10 mg PO QHS tab 05/28/17 [History Confirmed 09/07/17] albuterol sulfate HFA 90 mcg/actuation aerosol inhaler 2 puff INHALATION Q4H PRN #1 device 06/01/17 [Rx Confirmed 09/07/17] budesonide-formoterol HFA 160 mcg-4.5 mcg/actuation aerosol inhaler 2 puff PO BID #1 device 06/01/17 [Rx Confirmed 09/07/17] metoprolol succinate ER 25 mg tablet,extended release 24 hr 25 mg PO QDAY tab 06/01/17 [History Confirmed 09/07/17] tiotropium bromide 2.5 mcg/actuation mist for inhalation 2 puff INHALATION Q24H #1 device 06/01/17 [Rx Confirmed 09/07/17] albuterol sulfate 1.25 mg/3 mL solution for nebulization 1.25 mg INHALATION Q4H PRN #180 vial 08/23/17 [Rx Confirmed 09/07/17] Handicap Placcard #1 [id number] 09/07/17 [Rx Confirmed 09/07/17] [facility] Medical History BMI 37.0-37.9, adult (Chronic) Hypothyroidism (Chronic) Acute asthma exacerbation (Acute) Cough (Acute) Fatigue (Acute) Hypoxia (Acute) Pneumonia (Acute) Shortness of breath (Acute) Allergic rhinitis (Chronic) Asthma (Chronic) COPD (chronic obstructive pulmonary disease) (Chronic) Depression (Chronic) HTN (hypertension) (Chronic) Postnasal drip (Chronic) Surgical History H/O thumb surgery (Resolved) H/O: hysterectomy (Resolved) History of appendectomy (Resolved) TMJ surgery (Resolved) Family History Mother Ovarian cancer Brother Brain cancer Grandmother Breast cancer Social History Smoking Status: Former smoker quit date: 03/01/07 pack-years: 23 second hand exposure: Yes alcohol intake: never substance use type: does not use Review of Systems Const CONSTITUTIONAL: Negative anorexia, body ache, chills, daytime sleepiness, fever(s), night sweats, oral thrush, stops breathing during sleep, weight loss, sleeping in chair, fatigue, weight loss, weight gain, frequent colds, seasonal allergies, other, headache(s) or orthopnea EETM Ear Nose Throat Mouth: Positive hearing normal; negative hoarseness, dry mouth in morning, change in vision, itchy eyes, eye pain, swallowing Difficulty, ear pain, headache(s), mouth pain, nasal congestion, nasal discharge, sinus pain, sinus pressure, sore throat, other, hard of hearing, nose bleed or post nasal drip Cardio Cardiovascular: Negative chest pain, chest pain at rest, chest pain with activity, irregular heart rhythm, edema, shortness of breath when lying down, palpitations, other or murmur Resp Respiratory: Positive as per HPI, shortness of breath shortness of breath: Positive with activity and cough cough: Positive non-productive; negative pain with cough, wheezing, chest congestion, chest tightness, pain on inspiration, inhalers, increase use of rescue inhalers, snoring, apnea or other Gastro Gastrointestional: Negative bloody stools, change in appetite, difficulty swallowing, reflux, hematemesis, melena stool, loose stool, constipation or other Genitourinary: Negative blood in urine, nocturia, pain with urination or other Musc Musculoskeletal: Negative body pain, back pain, neck pain or other Skin/Breast Skin/Breast: Negative dry skin, itching, unusual bruising, breast lump, other or rash Neuro Neurological: Negative restless legs, confusion, weakness or other Psych Psychocological: Negative abnormal sleep pattern, anxiety, thoughts of hurting self/others, hopelessness or other Lymph Lymphatic: Negative easy bleeding, easy bruising, other or swollen lymph nodes Exam Const Constitutional: Positive cooperative, in no acute respiratory distress, healthy appearing, well developed, well nourished, good hygiene, obese and conversant Head Head: Positive normocephalic and atraumatic; negative cyanosis of lips/distal nose Eyes Eye: Positive clear conjunctiva; negative nystagmus or scleral abnormality Ears Ear: Positive hearing normal and external ears normal; negative hard of hearing Nose Nose: Positive external nose normal and no nasal discharge; negative epistaxis Mouth Mouth: Positive oral mucosae normal, no lesions and crowded posterior oropharynx; negative post nasal drip, malodorous breath or oral thrush present Mallampati Score: III: Mallampati Score Neck Neck: Positive normal visual inspection, full ROM and trachea midline; negative lymphadenopathy, JVD or tender Chest Wall Chest: Positive normal inspection of the chest and symmetric chest movement; negative increased A/P diameter Resp lung sounds: Positive clear to auscultation, good air exchange, normal expiratory time and normal respiratory effort; negative diminished, wheezes, rhonchi, rales, dullness to percussion or wheeze present on forced exhalation Cardio Cardiac: Positive regular rate, regular rhythm, S1 normal and S2 normal; negative murmur GI GI: Positive normal to inspection and obese; negative distended Genitourinary: Positive deferred Musc Musculoskeletal: Positive steady gait and ROM normal; negative kyphosis or scoliosis Skin Pulmonary Skin Exam: Positive intact; negative rash Pulses Pulse: Yes pulses normal x4 extremities Extremities Extremities: Yes capillary refill normal, No clubbing, No cyanosis, Yes edema Location: lower extremity location: Bilateral pitting +1 Neuro Neurologic: Yes conversant, Yes no focal neuro deficits, Yes normal concentration, Yes understands questions, Yes cooperative, Yes normal cognition, Yes normal coordination Lymph Lymphatic: No lymphadenopathy, No tenderness, No cervical adenopathy Psych Appearance: Positive grossly normal, eye contact and well kempt Mental Status: Positive mental status grossly normal Mood: Positive congruent mood Affect: Positive normal affect Immunizations flu vacc (65yr up)-MF59C(PF) 45 mcg(15 mcgx3)/0.5 mL IM syringe Performing Provider: INDIRA Cisneros Administered by: Marla Covarrubias on 11/03/17 08:23 Dose Route Admin Location Lot Number Expiration Date [employer]DC [employer] 0.5 mL IM Left Deltoid [id number] 05/30/18 [id number] SEQIRUS VIS Given Date VIS Publication Date 11/03/17 10/05/14 Eligibility Eligibility Date Coding Level of Care Code Off vis,est,level 3 Diagnoses ISIDRO (obstructive sleep apnea) G47.33 Stage 3 severe COPD by GOLD classification J44.9 11/03/17 0844 <Electronically signed by Marta JACOBSON> Date Marta JACOBSON Cosigner Signature: Date (if applicable) CC: Ele Pednleton Start: 10-27-2017 End: 10-27-2017 OR - Individual Treatment Plan Comments: See Note; NOTES: [facility] Pulmonary Rehab Reports [address] [place] [address] OR - Individual Treatment Plan MR#: [id number] Acct: [id number] Name: TEAGAN VAUGHAN Rep #: [id number] : 1950 66 From: 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, 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, BS PCP: Ele Astudillo DO Exercise - Final Assessment - Exercise Prescription Mode:: Treadmill, Airdyne, NuStep, Arm Ergometer Frequency (x/week): 3 - Discharged 10/04/2017 Duration:: 35 Aerobic Exercise [30-60 min 3-7x/week]:: Met Target heart rate: 124-132 Pamella-12 MET Level:: 3.2 - Home Exercise Home Exercise:: Yes Disease Management - Final - Hypoxemia Final Assessment: Demonstrates knowledge of O2 Rx with exercise - Medications Medication list reviewed:: Yes Taking medications 100% of the time:: Met Medication reassessment: Yes Pt demonstrates correct technique timing for MDI, Yes Pt demonstrates correct technique timing for DPI, Yes Pt demonstrates correct technique timing for NEB, Yes Pt demonstrates correct technique timing for spacer - returned use of spacer/MDI - Bronchial Hygiene Bronchial Hygiene Plan: Yes Pt demonstrates correctly for effective cough, Yes Pt demo correct for device - returned use acapella device, Yes Pt demo correct for hand hygiene, Yes Pt demo correct for evalute sputum, Yes Pt demo correct for verbalize when to call MD Psychosocial - Final Assess - Assessment Depression reassess: Management of stress: Met, Management of depression: Met, Practicing interventions: Met Tobacco - Final Assessment - Program Goals Tobacco Program Goals: Complete smoking cessation. Attend education classes. Improve Knowledge Test score - Stage of Change Stages of Change:: Action - Learning Barriers Learning Barriers: Participates in education - Family Support Do you have family support?: Yes - Tobacco Use Tobacco Use: Non-smoker Do you use smokeless tobacco?: No - Intervention Smoking Cessation Referral:: No Education Schedule Given:: Yes - Education Education Goal Reached?: Yes Nutrition/Wt Mgmt - Final - Weight Management Weight:: 237 lb - down 3.5 # this month Weight Goals Progress:: Goal met Patient Health Questionnaire Discharge Assessment 1. Little interest or pleasure in doing things: Not at all 2. Feeling down, depressed, or hopeless: Not at all 3. Trouble falling or staying asleep, or sleeping too much: Not at all 4. Feeling tired or having little energy: Not at all 5. Poor appetite or overeating: Not at all 6. Feeling bad about yourself -- or that you are a failure or have let yourself or your family down: Not at all 7. Trouble concentrating on things, such as reading the newspaper or watching television: Not at all 8. Moving or speaking so slowly that other people could have noticed. Or the opposite - being so fidgety or restless that you have been moving around a lot more than usual: Not at all 9. Thoughts that you would be better off , or of hurting yourself in some way: Not at all Total Score: 0 COPD Knowledge Test Discharge COPD is a lung disease that:: Makes it hard to breathe AND gets worse over time In the [place] the term COPD describes 2 main lung conditions:: Emphysema AND chronic bronchitis The most common lung irritant that causes COPD is:: Cigarette smoke Common signs and symptoms of COPD include:: An ongoing cough/cough that produces a large amount of mucus, AND SOB If you have COPD, what steps can you take?: All of the above Swelling of the ankles is common in COPD:: False Fatigue [tiredness] is common in COPD:: True Wheezing is common in COPD:: True Crushing chest pain is common in COPD:: False Rapid weight loss is common in COPD:: False Breathlessness is a normal response to exercise: True Exercise should be avoided if it makes you short of breath: False All bronchodilators act within 10 minutes: True A spacer device increases the medication to the lungs: True Annual flu vaccine is recommended for pts w/lung disease: True COPD Knowledge Test Total Score:: 14 COPD Assessment Test [CAT] - Questions Never cough = 0, Cough all the time = 5: 2 No phlegm = 0, Chest full of phlegm = 5: 3 No chest tightness = 0, Chest very tight = 5: 2 No breathless w/exertion = 0, Very breathless w/exertion = 5: 1 No limitations w/activity = 0, Very limited w/activity = 5: 3 Confident leaving home = 0, Not at all confident = 5: 3 Sleep soundly = 0, Don't sleep soundly = 5: 2 Lots of energy = 0, No energy at all = 5: 2 Total CAT score:: 18 Self-Efficacy Discharge Assessment We would like to know how confident you are in doing certain activities. Please select your confidence level for:: Select your confidence level for the following using the scale 1-10 where 1 is not at all confident and 10 is totally confident. Your score is the average of all 6 responses. Fatigue: How confident are you that you can keep the fatigue caused by your disease from interfering with the things you want to do? Select Number: 10 Physical Discomfort or Pain: How confident are you that you can keep the physical discomfort or pain of your disease from interfering with the things you want to do? Select Number: 10 Emotional Distress: How confident are you that you can keep the emotional distress caused by your disease from interfering with the things you want to do? Select Number: 10 Other Symptoms or Health Problems: How confident are you that you can keep other symptoms or health problems from interfering with the things you want to do? Select Number: 10 Different Tasks and Activities: How confident are you that you can do the different tasks and activities needed to manage your health condition so as to reduce your need to see a doctor? Select Number: 10 Medication: How confident are you that you can do things other than just taking medication to reduce how much your illness affects your everyday life? Select Number: 10 Total Score:: 10 Nutrition Survey - Nutrition Survey Instructions Scoring Instructions: Scoring is as follows: Yes = 1 points. No = 0 point. Patient score that is >/=12 is considered to be at potential nutritional risk and could benefit from a referral to a registered dietitian. - Nutrition Survey Discharge Have you lost >10 lbs over the past 2 months without trying?: No Are you following a special diet at home for diabetes, low fat, or low salt?: Yes Are you interested in meeting with a dietitian for help understanding your diet?: No Do you eat less than 3 meals a day?: No Do you eat fatty meats (castellanos, sausage, ribs, etc), fried foods, desserts, large amounts of salad dressings, margarine, butter, or cheese most days?: No Do you have food allergies? [Enter types in comment field]: No Do you eat in restaurants more than 3 times a week?: No Do you season food with salt, seasoning salt, or garlic salt?: No Do you used canned, boxed, frozen meals, or soups, seasoning packets?: Yes Total Score:: 2 10/22/17 1405 <Electronically signed by Raf Bryson 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, 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, CHRISTINA> Date Raf Bryson CRT, RCP, BS Outcome assessment reviewed. Exercise plan approved as documented. Treatment plan and goals support patient needs/abilities. Continue with current plan. I certify the patient demonstrates improvement and remains willing and capable of participation. the patient continues to benefit from pulmonary services/training. The patient may continue at current intensity, endurance and modality and progress per protocol. 10/27/17 5503<Electronically signed by Pablo Meadows MD> Cosigner Signature: Date Pablo Meadows MD CC: Signed Ele Astudillo Start: 10-19-2017 End: 10-19-2017 OR - Individual Treatment Plan Comments: See Note; NOTES: [facility] Pulmonary Rehab Reports [address] [place] [address] OR - Individual Treatment Plan MR#: [id number] Acct: [id number] Name: TEAGAN VAUGHAN Rep #: [id number] : 1950 66 From: Raf Bryson CRT, RCP, BS PCP: Ele Astudillo DO Exercise - Final Assessment - Exercise Prescription Mode:: Treadmill, NuStep, Arm Ergometer Frequency (x/week): 3 Duration:: 30 Aerobic Exercise [30-60 min 3-7x/week]:: Met Further followup [see D/C Summary]:: No Target heart rate: 124-132 Pamella-13 MET Level:: 3.2 - Maximal level - Home Exercise Home Exercise:: No Disease Management - Final - Hypoxemia Final Assessment: Demonstrates knowledge of O2 Rx with exercise - Medications Medication list reviewed:: Yes Taking medications 100% of the time:: Met Medication reassessment: Yes Pt demonstrates correct technique timing for MDI, Yes Pt demonstrates correct technique timing for DPI, Yes Pt demonstrates correct technique timing for NEB, Yes Pt demonstrates correct technique timing for spacer - returned demonstration use of spacer - Bronchial Hygiene Bronchial Hygiene Plan: Yes Pt demonstrates correctly for effective cough, Yes Pt demo correct for device - returned use of acapella, SMI and IMT devices, Yes Pt demo correct for improved hydration, Yes Pt demo correct for hand hygiene, Yes Pt demo correct for verbalize when to call MD Tobacco - Final Assessment - Program Goals Tobacco Program Goals: Complete smoking cessation. Attend education classes. Improve Knowledge Test score - Stage of Change Stages of Change:: Action - Learning Barriers Learning Barriers: Participates in education - Family Support Do you have family support?: Yes - Tobacco Use Tobacco Use: Non-smoker Do you use smokeless tobacco?: No - Intervention Smoking Cessation Referral:: No Individual Education/Counseling:: No Education Schedule Given:: Yes - Education Education Goal Reached?: Yes Nutrition/Wt Mgmt - Final - Weight Management Final Weight Assessment: Wt stable Weight:: 240 lb 8 oz - actually has gained weight Weight Goals Progress:: Referral to structured weight management program - Patient could benefit from a strucutred weight loss program in reducing weight. Patient Health Questionnaire Discharge Assessment 1. Little interest or pleasure in doing things: Not at all 2. Feeling down, depressed, or hopeless: Not at all 3. Trouble falling or staying asleep, or sleeping too much: Not at all 4. Feeling tired or having little energy: Not at all 5. Poor appetite or overeating: Not at all 6. Feeling bad about yourself -- or that you are a failure or have let yourself or your family down: Not at all 7. Trouble concentrating on things, such as reading the newspaper or watching television: Not at all 8. Moving or speaking so slowly that other people could have noticed. Or the opposite - being so fidgety or restless that you have been moving around a lot more than usual: Not at all 9. Thoughts that you would be better off , or of hurting yourself in some way: Not at all Total Score: 0 COPD Knowledge Test Discharge COPD is a lung disease that:: Makes it hard to breathe AND gets worse over time In the [place] the term COPD describes 2 main lung conditions:: Emphysema AND chronic bronchitis The most common lung irritant that causes COPD is:: Cigarette smoke Common signs and symptoms of COPD include:: An ongoing cough/cough that produces a large amount of mucus, AND SOB If you have COPD, what steps can you take?: All of the above Swelling of the ankles is common in COPD:: False Fatigue [tiredness] is common in COPD:: True Wheezing is common in COPD:: True Crushing chest pain is common in COPD:: False Rapid weight loss is common in COPD:: False Breathlessness is a normal response to exercise: True Exercise should be avoided if it makes you short of breath: False All bronchodilators act within 10 minutes: True A spacer device increases the medication to the lungs: True Annual flu vaccine is recommended for pts w/lung disease: True COPD Knowledge Test Total Score:: 14 COPD Assessment Test [CAT] - Questions Never cough = 0, Cough all the time = 5: 1 No phlegm = 0, Chest full of phlegm = 5: 0 No chest tightness = 0, Chest very tight = 5: 0 No breathless w/exertion = 0, Very breathless w/exertion = 5: 1 No limitations w/activity = 0, Very limited w/activity = 5: 0 Confident leaving home = 0, Not at all confident = 5: 1 Sleep soundly = 0, Don't sleep soundly = 5: 2 Lots of energy = 0, No energy at all = 5: 1 Total CAT score:: 6 Self-Efficacy Discharge Assessment We would like to know how confident you are in doing certain activities. Please select your confidence level for:: Select your confidence level for the following using the scale 1-10 where 1 is not at all confident and 10 is totally confident. Your score is the average of all 6 responses. Fatigue: How confident are you that you can keep the fatigue caused by your disease from interfering with the things you want to do? Select Number: 10 Physical Discomfort or Pain: How confident are you that you can keep the physical discomfort or pain of your disease from interfering with the things you want to do? Select Number: 10 Emotional Distress: How confident are you that you can keep the emotional distress caused by your disease from interfering with the things you want to do? Select Number: 10 Other Symptoms or Health Problems: How confident are you that you can keep other symptoms or health problems from interfering with the things you want to do? Select Number: 10 Different Tasks and Activities: How confident are you that you can do the different tasks and activities needed to manage your health condition so as to reduce your need to see a doctor? Select Number: 10 Medication: How confident are you that you can do things other than just taking medication to reduce how much your illness affects your everyday life? Select Number: 10 Total Score:: 10 Nutrition Survey - Nutrition Survey Instructions Scoring Instructions: Scoring is as follows: Yes = 1 points. No = 0 point. Patient score that is >/=12 is considered to be at potential nutritional risk and could benefit from a referral to a registered dietitian. - Nutrition Survey Discharge Have you lost >10 lbs over the past 2 months without trying?: No Are you following a special diet at home for diabetes, low fat, or low salt?: No Are you interested in meeting with a dietitian for help understanding your diet?: No Do you eat less than 3 meals a day?: No Do you eat fatty meats (castellanos, sausage, ribs, etc), fried foods, desserts, large amounts of salad dressings, margarine, butter, or cheese most days?: Yes Do you have food allergies? [Enter types in comment field]: No Do you eat in restaurants more than 3 times a week?: No Do you season food with salt, seasoning salt, or garlic salt?: Yes Do you used canned, boxed, frozen meals, or soups, seasoning packets?: Yes Total Score:: 3 09/21/17 0918 <Electronically signed by Raf Bryson CRT, RCP, BS> Date Raf Bryson CRT, RCP, BS Outcome assessment reviewed. Exercise plan approved as documented. Treatment plan and goals support patient needs/abilities. Continue with current plan. I certify the patient demonstrates improvement and remains willing and capable of participation. the patient continues to benefit from pulmonary services/training. The patient may continue at current intensity, endurance and modality and progress per protocol. 10/19/17 1346<Electronically signed by Pablo Meadows MD> Cosigner Signature: Date Pablo Meadows MD CC: Signed Ele Astudillo Start: 09-07-2017 End: 09-07-2017 Pulmonary Visit Report Comments: See Note; NOTES: [facility] [address] [place] [address] OFFICE VISIT Date of Service: 09/07/17 MR#: [id number] Acct: [id number] Name: TEAGAN VAUGHAN Rep #: [id number] : 1950 Provider: Twan Maynard D.O. Age/Sex: 66/F Location: [facility] Status: Signed Assessment AND Plan 1. Stage 3 severe COPD by GOLD classification J44.9 FEV1 44% of predicted Plan Plan to continue current inhaler regimen with Symbicort, Spiriva and as needed albuterol. The patient has been advised to call this office with any worsening in her breathing quality and/or increased reliance on her short acting beta agonist. 2. ISIDRO (obstructive sleep apnea) G47.33 Plan The patient has known ISIDRO, for which she is currently prescribed nocturnal BiPAP therapy with a pressure support of 16/12 cm of water. The patient was only started on noninvasive positive pressure ventilation last evening for the first time. Therefore, would recommend follow-up with our nurse practitioner in 4-6 weeks to assess her symptom response to BiPAP and to ensure ongoing compliance. 3. Allergic rhinitis J30.9 Plan Continue follow-up with ENT for allergy immunotherapy. Continue Singulair and Flonase. 4. Chronic respiratory failure with hypoxia J96.11 2 L with exertion Plan Continue 2 L/min of supplemental oxygen with exertion. Plan Detail Other Medications New: Follow Up 6 Weeks (CSM) HPI HPI Comments Details: The patient is a 66-year-old female who presents to the clinic today for a routine scheduled follow-up office visit. If you recall, I initially met the patient when she was admitted to the hospital on May 2016, during which time she was treated for a presumptive asthma exacerbation. The patient has a prior smoking history of approximately 30 pack years, having quit completely in 2008. Pulmonary function testing completed in June 2016 showed evidence of a severe large airways obstructive ventilatory defect with an associated response to aerosolized bronchodilators. There was evidence of hyperinflation, air trapping and a moderate reduction in diffusing capacity. She also has a known history of seasonal allergic rhinitis. She has had positive RAST testing previously. Her serum IgE level was also noted to be 121. Surface echocardiogram completed in July 2016 revealed normal LV function with an ejection fraction of 60%. The patient has been followed by ENT and is currently receiving allergy injections. She has been maintained on a triple therapy inhaler regimen with Symbicort, Spiriva and Ventolin. The patient also has known obstructive sleep apnea, based off of polysomnogram completed in June 2017, for which the patient had an overall apnea-hypopnea index of 40.2 events per hour. She underwent a titration study in July 2017, for which it was recommended that she be placed on bilevel therapy with a pressure support setting of 22/18 cm of water with humidification. Laboratory Tests IgE 140 H Aspergillus flavus Ab Negative Aspergill fumigatus Ab Negative Aspergillus niger Ab Negative Today, the patient reports overall stability in her breathing quality. She is currently utilizing 2 L/min of supplemental oxygen with exertion. She is actively enrolled in pulmonary rehabilitation and is currently scheduled to complete the program in September. She does report that she feels as if it is helping her. She remains compliant with the use of Symbicort, Spiriva and as needed albuterol. Reports on average she utilizes her rescue inhaler 1 time per day. She was just started on nocturnal BiPAP therapy last evening. She is currently utilizing a full facemask and receives her equipment through [employer]. She denies the presence of chest tightness or wheezing. She does have a mild, intermittently productive cough, which she attributes to her allergies. She continues to receive weekly allergy immunotherapy injections. Her weight has been stable. She denies fevers, chills or night sweats. Intake Vital Signs09/07/17 Height 5 ft 5 in 09/07/17 Weight: 239 lb Intake Visit Reasons: 3 M FU Debt Management Counselor Required: No DME Vendor: [employer] Accompanied by: Self Is patient in pain?: No Allergies No Known Allergies Allergy (Verified 09/07/17 09:16) Medications Levothyroxine [Synthroid] 25 mcg PO DAILY 06/10/16 [History Confirmed 09/07/17] Montelukast [Singulair] 10 mg PO DAILY 06/10/16 [History Confirmed 09/07/17] citalopram 10 mg tablet 10 mg PO QDAY 05/28/17 [History Confirmed 09/07/17] fluticasone 50 mcg/actuation nasal spray,suspension 2 spray INTRANASAL QDAY 05/28/17 [History Confirmed 09/07/17] lansoprazole 15 mg capsule,delayed release 15 mg PO QDAY 05/28/17 [History Confirmed 09/07/17] rizatriptan 10 mg tablet 10 mg PO ONCE PRN 05/28/17 [History Confirmed 09/07/17] zolpidem 10 mg tablet 10 mg PO QHS tab 05/28/17 [History Confirmed 09/07/17] albuterol sulfate HFA 90 mcg/actuation aerosol inhaler 2 puff INHALATION Q4H PRN #1 device 06/01/17 [Rx Confirmed 09/07/17] budesonide-formoterol HFA 160 mcg-4.5 mcg/actuation aerosol inhaler 2 puff PO BID #1 device 06/01/17 [Rx Confirmed 09/07/17] metoprolol succinate ER 25 mg tablet,extended release 24 hr 25 mg PO QDAY tab 06/01/17 [History Confirmed 09/07/17] tiotropium bromide 2.5 mcg/actuation mist for inhalation 2 puff INHALATION Q24H #1 device 06/01/17 [Rx Confirmed 09/07/17] albuterol sulfate 1.25 mg/3 mL solution for nebulization 1.25 mg INHALATION Q4H PRN #180 vial 08/23/17 [Rx Confirmed 09/07/17] Handicap Placcard #1 [id number] 09/07/17 [Rx Confirmed 09/07/17] PFSH Medical History BMI 37.0-37.9, adult (Chronic) Hypothyroidism (Chronic) Acute asthma exacerbation (Acute) Cough (Acute) Fatigue (Acute) Hypoxia (Acute) Pneumonia (Acute) Shortness of breath (Acute) Allergic rhinitis (Chronic) Asthma (Chronic) COPD (chronic obstructive pulmonary disease) (Chronic) Depression (Chronic) HTN (hypertension) (Chronic) Postnasal drip (Chronic) Surgical History H/O thumb surgery (Resolved) H/O: hysterectomy (Resolved) History of appendectomy (Resolved) TMJ surgery (Resolved) Family History Mother Ovarian cancer Brother Brain cancer Grandmother Breast cancer Social History Smoking Status: Former smoker quit date: 03/01/07 pack-years: 23 second hand exposure: Yes alcohol intake: never substance use type: does not use Review of Systems Const CONSTITUTIONAL: Negative anorexia, body ache, chills, daytime sleepiness, fever(s), night sweats, oral thrush, stops breathing during sleep, weight loss, sleeping in chair, fatigue, weight loss, weight gain, frequent colds, seasonal allergies, other, headache(s) or orthopnea EETM Ear Nose Throat Mouth: Positive hearing normal; negative hard of hearing, hoarseness, dry mouth in morning, change in vision, itchy eyes, eye pain, swallowing Difficulty, ear pain, nose bleed, headache(s), mouth pain, nasal congestion, nasal discharge, post nasal drip, sinus pain, sinus pressure, sore throat or other Cardio Cardiovascular: Negative chest pain, chest pain at rest, chest pain with activity, irregular heart rhythm, edema, shortness of breath when lying down, palpitations, murmur or other Resp Respiratory: Positive as per HPI, shortness of breath shortness of breath: Positive with activity and inhalers; negative pain with cough, wheezing, chest congestion, cough, chest tightness, pain on inspiration, increase use of rescue inhalers, snoring, apnea or other Gastro Gastrointestional: Negative bloody stools, change in appetite, difficulty swallowing, reflux, hematemesis, melena stool, loose stool, constipation or other Genitourinary: Positive nocturia; negative blood in urine, pain with urination or other Musc Musculoskeletal: Negative body pain, back pain, neck pain or other Skin/Breast Skin/Breast: Negative dry skin, itching, rash, unusual bruising, breast lump or other Neuro Neurological: Negative restless legs, confusion, weakness or other Psych Psychocological: Negative abnormal sleep pattern, anxiety, thoughts of hurting self/others, hopelessness or other Lymph Lymphatic: Negative easy bleeding, easy bruising, swollen lymph nodes or other Exam Const Constitutional: Positive conversant, cooperative, in no acute respiratory distress, well developed, well nourished, good hygiene, obese and wearing supplemental oxygen Head Head: Positive normocephalic and atraumatic; negative cyanosis of lips/distal nose Eyes Eye: Positive clear conjunctiva; negative nystagmus or scleral abnormality Ears Ear: Positive hearing normal and external ears normal; negative hard of hearing Nose Nose: Positive external nose normal; negative epistaxis Mouth Mouth: Positive oral mucosae normal and posterior oropharynx is adequate; negative no lesions or post nasal drip Mallampati Score: III: Mallampati Score Neck Neck: Positive normal visual inspection, trachea midline and thick neck; negative lymphadenopathy Chest Wall Chest: Positive symmetric chest movement Normal AP diameter. Resp lung sounds: Positive diminished diminished: Positive global; negative wheezes, rhonchi or rales Cardio Cardiac: Positive regular rate, regular rhythm, S1 normal and S2 normal; negative rub, gallop or murmur GI GI: Positive normal bowel sounds and obese Soft without distention Genitourinary: Positive deferred Musc Musculoskeletal: Positive steady gait Skin Pulmonary Skin Exam: Positive intact; negative lesion, ulcers, dermal atrophy or rash Pulses Pulse: Yes Pedal pulses present: Extremities Extremities: No clubbing, No cyanosis, No edema Neuro Neurologic: Yes conversant, Yes no focal neuro deficits, Yes cooperative Lymph Lymphatic: No lymphadenopathy Psych Appearance: Positive grossly normal Mental Status: Positive mental status grossly normal Mood: Positive congruent mood Affect: Positive normal affect Coding Level of Care Code Off vis,est,level 3 Diagnoses Stage 3 severe COPD by GOLD classification J44.9 ISIDRO (obstructive sleep apnea) G47.33 Allergic rhinitis J30.9 Chronic respiratory failure with hypoxia J96.11 09/07/17 0947 <Electronically signed by Twan Maynard DO> Date Twan Maynard DO Cosigner Signature: Date (if applicable) CC: Ele Pendleton Start: 08-23-2017 End: 08-23-2017 OR - Individual Treatment Plan Comments: See Note; NOTES: [facility] Pulmonary Rehab Reports [address] [place] [address] OR - Individual Treatment Plan MR#: [id number] Acct: [id number] Name: TEAGAN VAUGHAN Rep #: [id number] : 1950 66 From: Raf Bryson 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, 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, BS PCP: Ele Astudillo DO Exercise - 90-Day Assessment - Exercise Prescription Mode:: Treadmill, NuStep, Arm Ergometer Frequency (x/week): 3 Duration:: 30 Aerobic Exercise [30-60 min 3-7x/week]:: Progressing Target heart rate: 124-132 Pamella-13 MET Level:: 3 - Home Exercise Home Exercise?: Yes Frequency:: 3 Time (minutes):: 30 - physically active, walking Disease Management - 90-Day - Hypoxemia Reassessment: Demonstrates knowledge of O2 Rx with exercise - Medications Medication list reviewed:: Yes Taking medications 100% of the time:: Met Medication reassessment: Yes Pt demonstrates correct technique timing for MDI, Yes Pt demonstrates correct technique timing for DPI, Yes Pt demonstrates correct technique timing for NEB, Yes Pt demonstrates correct technique timing for spacer - Bronchial Hygiene Bronchial Hygiene Plan: Yes Pt demonstrates correctly for effective cough, Yes Pt demo correct for device - return demonstration acapella, Yes Pt demo correct for improved hydration, Yes Pt demo correct for hand hygiene, Yes Pt demo correct for verbalize when to call MD Psychosocial - 90-Day - Assessment Depression reassess: Management of stress: Met, Management of depression: Met, Practicing interventions: Met Tobacco - 90-Day Assessment - Program Goals Tobacco Program Goals: Complete smoking cessation. Attend education classes. Improve Knowledge Test score - Stage of Change Stages of Change:: Action - Learning Barriers Learning Barriers: Participates in education - Family Support Do you have family support?: Yes - Tobacco Use Tobacco Use: Non-smoker - Intervention Education Schedule Given:: Yes - Education Gave Education Materials For:: Pulmonary Disease, Risk Factors, Breathing Techniques, Medical Compliance, Pulmonary A AND P, Exacerbation Signs AND Symptoms, Stress AND Relaxation Nutrition/Wt Mgmt - 90-Day - Weight Management Weight:: 235 lb - loss 3# Weight Goals Progress:: Progressing Patient Health Questionnaire 90-Day Re-eval Assessment 1. Little interest or pleasure in doing things: Not at all 2. Feeling down, depressed, or hopeless: Not at all 3. Trouble falling or staying asleep, or sleeping too much: Not at all 4. Feeling tired or having little energy: Not at all 5. Poor appetite or overeating: Not at all 6. Feeling bad about yourself -- or that you are a failure or have let yourself or your family down: Not at all 7. Trouble concentrating on things, such as reading the newspaper or watching television: Not at all 8. Moving or speaking so slowly that other people could have noticed. Or the opposite - being so fidgety or restless that you have been moving around a lot more than usual: Not at all 9. Thoughts that you would be better off , or of hurting yourself in some way: Not at all Total Score: 0 COPD Assessment Test [CAT] - Questions Never cough = 0, Cough all the time = 5: 1 No phlegm = 0, Chest full of phlegm = 5: 0 No chest tightness = 0, Chest very tight = 5: 0 No breathless w/exertion = 0, Very breathless w/exertion = 5: 1 No limitations w/activity = 0, Very limited w/activity = 5: 0 Confident leaving home = 0, Not at all confident = 5: 1 Sleep soundly = 0, Don't sleep soundly = 5: 2 Lots of energy = 0, No energy at all = 5: 0 Total CAT score:: 5 Self-Efficacy 90-Day Re-eval Assessment We would like to know how confident you are in doing certain activities. Please select your confidence level for:: Select your confidence level for the following using the scale 1-10 where 1 is not at all confident and 10 is totally confident. Your score is the average of all 6 responses. Fatigue: How confident are you that you can keep the fatigue caused by your disease from interfering with the things you want to do? Select Number: 10 Physical Discomfort or Pain: How confident are you that you can keep the physical discomfort or pain of your disease from interfering with the things you want to do? Select Number: 10 Emotional Distress: How confident are you that you can keep the emotional distress caused by your disease from interfering with the things you want to do? Select Number: 10 Other Symptoms or Health Problems: How confident are you that you can keep other symptoms or health problems from interfering with the things you want to do? Select Number: 10 Different Tasks and Activities: How confident are you that you can do the different tasks and activities needed to manage your health condition so as to reduce your need to see a doctor? Select Number: 10 Medication: How confident are you that you can do things other than just taking medication to reduce how much your illness affects your everyday life? Select Number: 10 Total Score:: 10 08/20/17 1038 <Electronically signed by Raf Bryson CRT, RCP, BS> Date Raf Bryson CRT, RCP, BS Outcome assessment reviewed. Exercise plan approved as documented. Treatment plan and goals support patient needs/abilities. Continue with current plan. I certify the patient demonstrates improvement and remains willing and capable of participation. the patient continues to benefit from pulmonary services/training. The patient may continue at current intensity, endurance and modality and progress per protocol. 08/23/17 9819<Electronically signed by Yo Rutledge MD> Cosigner Signature: Date Yo Rutledge MD CC: Signed Ele Astudillo Start: 07-30-2017 End: 07-30-2017 OR - Individual Treatment Plan Comments: See Note; NOTES: [facility] Pulmonary Rehab Reports [address] [place] [address] OR - Individual Treatment Plan MR#: [id number] Acct: [id number] Name: TEAGAN VAUGHAN Rep #: [id number] : 1950 66 From: Raf Bryson CRT, RCP, BS PCP: Ele Astudillo DO General Information - General Information Admitting Diagnosis: COPD Gold Classification:: GOLD 3: Severe - Education/Goals Barriers to Learning: None Individual Counselin-Day Assessment: Dyspnea control techniques at rest, activity, and ADLs - improved, Exacerbation prevention AND management, ADL management and pacing - uses proper breathing techniques, Nutrition AND weight management, Home exercise plan AND guidelines Patient Goals: Breathe better: 30-Day Assessment - uses controlled breathing appropiately with ADLs., Increase endurance/stamina: 30-Day Assessment - more energy, Return to recreation/hobby: 30-Day Assessment - doing more at home, Improve weight: 30-Day Assessment - not progressing as planned Exercise - 30-Day Assessment - Exercise Prescription Mode:: Treadmill, Airdyne, NuStep, Arm Ergometer Frequency (x/week): 3 Duration:: 30 Aerobic Exercise [30-60 min 3-7x/week]:: Progressing Target heart rate: 124-131 Pamella MET Level:: 2.5 - unable to increase due to HRs and BPs - Home Exercise Home Exercise:: No Disease Management - 30-Day - Hypoxemia Reassessment: Demonstrates knowledge of O2 Rx with exercise - Medications Medication list reviewed:: Yes Taking medications 100% of the time:: Met Medication reassessment: Yes Pt demonstrates correct technique timing for MDI, Yes Pt demonstrates correct technique timing for DPI, Yes Pt demonstrates correct technique timing for NEB, Yes Pt demonstrates correct technique timing for spacer - instructed use of spacer device - Bronchial Hygiene Bronchial Hygiene Plan: Yes Pt demonstrates correctly for effective cough, Yes Pt demo correct for device - instructed use of acapella device, Yes Pt demo correct for improved hydration, Yes Pt demo correct for hand hygiene Psychosocial - 30-Day - Assessment Reassessment: Management of stress AND depression, Practicing interventions, COPD assessment w/ CAT, Geriatric depression screening, Self efficacy score Tobacco - 30-Day Assessment - Program Goals Tobacco Program Goals: Complete smoking cessation. Attend education classes. Improve Knowledge Test score - Stage of Change Stages of Change:: Action - Learning Barriers Learning Barriers: Participates in education - Family Support Do you have family support?: Yes - Tobacco Use Tobacco Use: Non-smoker - Intervention Education Schedule Given:: Yes - Education Gave Education Materials For:: Tobacco Triggers, Pulmonary Disease, Risk Factors, Breathing Techniques, Medical Compliance, Pulmonary A AND P, Exacerbation Signs AND Symptoms, Stress AND Relaxation Nutrition/Wt Mgmt - 30-Day - Weight Management Weight:: 238 lb - up 2# Weight Goals Progress:: Referral to structured weight management program - Patient could benefit from stuctured weight loss program; Why Weight. Patient Health Questionnaire 30-Day Re-eval Assessment 1. Little interest or pleasure in doing things: Several days 2. Feeling down, depressed, or hopeless: Several days 3. Trouble falling or staying asleep, or sleeping too much: Several days 4. Feeling tired or having little energy: More than half the days 5. Poor appetite or overeating: Not at all 6. Feeling bad about yourself -- or that you are a failure or have let yourself or your family down: Not at all 7. Trouble concentrating on things, such as reading the newspaper or watching television: Not at all 8. Moving or speaking so slowly that other people could have noticed. Or the opposite - being so fidgety or restless that you have been moving around a lot more than usual: Not at all 9. Thoughts that you would be better off , or of hurting yourself in some way: Not at all How difficult have these problems made it for you to do your work, take care of things at home, or get along with other people?: Not difficult at all Total Score: 5 COPD Assessment Test [CAT] - Questions Never cough = 0, Cough all the time = 5: 1 No phlegm = 0, Chest full of phlegm = 5: 1 No chest tightness = 0, Chest very tight = 5: 2 No breathless w/exertion = 0, Very breathless w/exertion = 5: 3 No limitations w/activity = 0, Very limited w/activity = 5: 2 Confident leaving home = 0, Not at all confident = 5: 0 Sleep soundly = 0, Don't sleep soundly = 5: 2 Lots of energy = 0, No energy at all = 5: 3 Total CAT score:: 14 Self-Efficacy 30-Day Re-eval Assessment We would like to know how confident you are in doing certain activities. Please select your confidence level for:: Select your confidence level for the following using the scale 1-10 where 1 is not at all confident and 10 is totally confident. Your score is the average of all 6 responses. Fatigue: How confident are you that you can keep the fatigue caused by your disease from interfering with the things you want to do? Select Number: 6 Physical Discomfort or Pain: How confident are you that you can keep the physical discomfort or pain of your disease from interfering with the things you want to do? Select Number: 6 Emotional Distress: How confident are you that you can keep the emotional distress caused by your disease from interfering with the things you want to do? Select Number: 9 Other Symptoms or Health Problems: How confident are you that you can keep other symptoms or health problems from interfering with the things you want to do? Select Number: 5 Different Tasks and Activities: How confident are you that you can do the different tasks and activities needed to manage your health condition so as to reduce your need to see a doctor? Select Number: 8 Medication: How confident are you that you can do things other than just taking medication to reduce how much your illness affects your everyday life? Select Number: 9 Total Score:: 7 07/22/17 1035 <Electronically signed by Raf Bryson CRT, RCP, BS> Date Raf Bryson CRT, RCP, CHRISTINA Outcome assessment reviewed. Exercise plan approved as documented. Treatment plan and goals support patient needs/abilities. Continue with current plan. I certify the patient demonstrates improvement and remains willing and capable of participation. the patient continues to benefit from pulmonary services/training. The patient may continue at current intensity, endurance and modality and progress per protocol. 07/30/17 1705<Electronically signed by Pablo Meadows MD> Cosigner Signature: Date Pablo Meadows MD CC: Signed Ele Astudillo Start: 07-13-2017 End: 07-13-2017 Pulmonary Visit Report Comments: See Note; NOTES: [facility] [address] [place] [address] OFFICE VISIT Date of Service: 07/13/17 MR#: [id number] Acct: [id number] Name: TEAGAN VAUGHAN Nelson Rep #: [id number] : 1950 Provider: Marta Butts Age/Sex: 66/F Location: [facility] Status: Signed Assessment AND Plan 1. Daytime hypersomnia G47.19 Status Acute Plan Several symptoms consistent with obstructive sleep apnea, a complete polysomnogram has been ordered. Lengthy discussion about the pathophysiology of obstructive sleep apnea with the patient. We discussed the risks of untreated sleep apnea as well as the benefits of treatment. We also discussed what to expect over the next several weeks, as I anticipate that she will likely be set up with therapy in approximately 6-8 weeks from now. We also talked about the goal initially will be that she can wear the device at least 4 hours nightly, and then ultimately goal will be for her to wear the device any time spent sleeping. She conveys understanding. She has been encouraged to contact the office with any difficulties acclimating to therapy. Keep previously scheduled routine follow-up with Dr. Maynard in August. Orders Orders: 2. Stage 3 severe COPD by GOLD classification J44.9 Status Acute FEV1 44% of predicted Plan He does not appear to be an exacerbation of her COPD today. Continue triple therapy, no need for antibiotics or prednisone today. Switching from Symbicort and Spiriva to Trelegy, as this is all 3 medications and one dose. She was instructed to rinse her mouth after each use. Sample was provided in the office today. She has been encouraged to contact the office if this is too expensive on her prescription drug plan. I do believe that she is suffering from asthma/COPD overlap syndrome. Encouraged her continue all asthma medications and follow-up with ENT. Doing further blood work today to evaluate if there are other possible medications that would be helpful for her, this blood work includes: CBC with differential, IgE, Aspergillus and Rast test. She can discuss test results with Dr. Maynard at the September 07 follow-up appointment. Orders Orders: Medications New: iickosgcguf-gpzeigmar-fpbwaf er 100-62.5-25 mcg (Trelegy Ellipta) 1 inh Inhalation QDAY administer at approximately the same time(s) each day 3. BMI 37.0-37.9, adult Z68.37 Status Chronic Plan Discussed the correlation between obesity and obstructive sleep apnea, as well as the impact weight loss would have on pressure support needs. Continue to encourage weight loss. 4. Chronic respiratory failure with hypoxia J96.11 Status Acute Plan Recent pulmonary stress test indicates that the patient requires 2 L of supplemental oxygen with exertion. We had a discussion regarding the deleterious effects of hypoxia, and the importance of preventing hypoxia from occurring. Patient conveys understanding. She does have a portable pulse oximeter, and she has been instructed to check her oxygen saturations randomly with both activity and rest. She has been encouraged to maintain saturations 8992%. She conveys understanding. Follow-up with Dr. Maynard in August as previously scheduled. Plan Detail Other Orders Orders: HPI Sleep Apnea: Chief Complaint: Daytime hypersomnia HPI Comments Details: This is a 66 year old F, currently under the care of Ele Astudillo, here today to review test results. She is ambulatory, currently on room air. She reports persistent daytime hypersomnia. She has been witnessed snoring. She denies ever awakening herself gasping for air. She has frequent headaches. She admits to dry mouth most mornings. She denies nocturia. She denies falling asleep easily watching TV or reading. She does admit to a nap approximately 3 times per week for approximately 45 minutes. Currently she is having allergies for which she follows with ENT. She is compliant with a weekly allergy injection. She is also on Flonase nasal spray, but admits that she has not been using it daily. She has been using Symbicort 2 puffs twice daily, but also admits that she does not rinse her mouth out after each use. She denies any medication side effects such as sore throat or thrush. She continues compliance with Spiriva, finds it is helpful in reducing shortness of breath. She is also using Singulair daily. Currently her allergy symptoms consist of itchy and watery eyes. She denies any cough, postnasal drainage, sputum production or hemoptysis. She denies any sinus pressure, sinus headaches, sinus drainage, ear pain or itchy ears. She denies any chest pain, chest tightness, wheezing or palpitations. She has not experienced any fever, chills or body aches. See complete review of systems. She has not used any tfji-mez-hcweoxs medications in addition to prescription medications for allergy control. I personally reviewed the tests/images/tracings which showed: Complete Pulmonary Function test were preformed on June 24, 2017, and showed FVC of 92 % of predicted, FEV1 of 44 % of predicted, FEV1/FVC ratio of 37 %, TLC of 133% of predicted, RV of 228% of predicted, DLCO 40% predicted. The test was interpreted to be consistent with severe large airway obstructive ventilatory defect, with a significant response to bronchodilators, hyperinflation and air trapping, and a symmetric reduction in diffusing capacity. Pulmonary stress test was completed on June 18, 2017, and showed a drop in saturation below 89% at minute 2, which suggested a requirement of 2 LPM of supplemental oxygen on ambulation. She was able to ambulate 866 feet over the course of 6 minutes. She does not require supplemental oxygen with rest. STOP-BANG Assessment: 1. Do you snore? Yes 2. Are you frequently tired during the day? Yes 3. Have you been observed gasping or choking while asleep? No 4. Do you have high blood pressure? Yes 5. BMI - greater than 35kg/m2? Yes 6. Age - over 50 years old? Yes 7. Neck Circumference - greater than 37 cm for females or 40 cm for males? Yes 8. Gender - male? No Total STOP-BANG score = 6 which indicates high risk for obstructive sleep apnea (yes to 3 or more questions = high risk of sleep apnea). Intake Vital Signs07/13/17 Height 5 ft 5 in 07/13/17 Weight: 235 lb Intake Visit Reasons: Sleep Apnea Accompanied by: Self Allergies No Known Allergies Allergy (Verified 07/13/17 09:36) Medications Levothyroxine [Synthroid] 25 mcg PO DAILY 06/10/16 [History Confirmed 07/13/17] Montelukast [Singulair] 10 mg PO DAILY 06/10/16 [History Confirmed 07/13/17] albuterol sulfate 1.25 mg/3 mL solution for nebulization 1.25 mg INHALATION Q4H PRN ml 05/28/17 [History Confirmed 07/13/17] citalopram 10 mg tablet 10 mg PO QDAY 05/28/17 [History Confirmed 07/13/17] fluticasone 50 mcg/actuation nasal spray,suspension 2 spray INTRANASAL QDAY 05/28/17 [History Confirmed 07/13/17] lansoprazole 15 mg capsule,delayed release 15 mg PO QDAY 05/28/17 [History Confirmed 07/13/17] rizatriptan 10 mg tablet 10 mg PO ONCE PRN 05/28/17 [History Confirmed 07/13/17] zolpidem 10 mg tablet 10 mg PO QHS tab 05/28/17 [History Confirmed 07/13/17] albuterol sulfate HFA 90 mcg/actuation aerosol inhaler 2 puff INHALATION Q4H PRN #1 device 06/01/17 [Rx Confirmed 07/13/17] budesonide-formoterol HFA 160 mcg-4.5 mcg/actuation aerosol inhaler 2 puff PO BID #1 device 06/01/17 [Rx Confirmed 07/13/17] metoprolol succinate ER 25 mg tablet,extended release 24 hr 25 mg PO QDAY tab 06/01/17 [History Confirmed 07/13/17] tiotropium bromide 2.5 mcg/actuation mist for inhalation 2 puff INHALATION Q24H #1 device 06/01/17 [Rx Confirmed 07/13/17] fluticasone 100 mcg-umeclid 62.5 mcg-vilant 25 mcg powd for inhalation 1 inh INHALATION QDAY #1 device 07/13/17 [Rx Confirmed 07/13/17] PFSH Medical History BMI 37.0-37.9, adult (Chronic) Hypothyroidism (Chronic) Acute asthma exacerbation (Acute) Cough (Acute) Fatigue (Acute) Hypoxia (Acute) Pneumonia (Acute) Shortness of breath (Acute) Allergic rhinitis (Chronic) Asthma (Chronic) COPD (chronic obstructive pulmonary disease) (Chronic) Depression (Chronic) HTN (hypertension) (Chronic) Postnasal drip (Chronic) Surgical History H/O thumb surgery (Resolved) H/O: hysterectomy (Resolved) History of appendectomy (Resolved) TMJ surgery (Resolved) Family History Mother Ovarian cancer Brother Brain cancer Grandmother Breast cancer Social History Smoking Status: Former smoker quit date: 03/01/07 pack-years: 23 second hand exposure: Yes alcohol intake: never substance use type: does not use FEV1% FEV1%: 44 Review of Systems Const CONSTITUTIONAL: Positive daytime sleepiness, fatigue and headache(s); negative anorexia, body ache, chills, fever(s), night sweats, oral thrush, stops breathing during sleep, weight loss, sleeping in chair, weight loss, weight gain, frequent colds, seasonal allergies, other or orthopnea EETM Ear Nose Throat Mouth: Positive dry mouth in morning, headache(s) and post nasal drip; negative hard of hearing, hearing normal, hoarseness, change in vision, itchy eyes, eye pain, swallowing Difficulty, ear pain, nose bleed, mouth pain, nasal congestion, nasal discharge, sinus pain, sinus pressure, sore throat or other Cardio Cardiovascular: Negative chest pain, chest pain at rest, chest pain with activity, irregular heart rhythm, edema, shortness of breath when lying down, palpitations, murmur or other Resp Respiratory: Positive as per HPI and snoring; negative shortness of breath, pain with cough, wheezing, chest congestion, cough, chest tightness, pain on inspiration, inhalers, increase use of rescue inhalers, apnea or other Gastro Gastrointestional: Negative bloody stools, change in appetite, difficulty swallowing, reflux, hematemesis, melena stool, loose stool, constipation or other Genitourinary: Negative blood in urine, nocturia, pain with urination or other Musc Musculoskeletal: Negative body pain, back pain, neck pain or other Skin/Breast Skin/Breast: Negative dry skin, itching, rash, unusual bruising, breast lump or other Neuro Neurological: Negative restless legs, confusion, weakness or other Psych Psychocological: Positive abnormal sleep pattern; negative anxiety, thoughts of hurting self/others, hopelessness or other Lymph Lymphatic: Negative easy bleeding, easy bruising, swollen lymph nodes or other Exam Const Constitutional: Positive conversant, cooperative, in no acute respiratory distress, healthy appearing, well developed, well nourished, good hygiene and obese Head Head: Positive normocephalic and atraumatic; negative cyanosis of lips/distal nose Eyes Eye: Positive clear conjunctiva and nystagmus; negative scleral abnormality Ears Ear: Negative hard of hearing, hearing normal or external ears normal (conjunctiva injected) Nose Nose: Positive external nose normal and no nasal discharge; negative epistaxis Mouth Mouth: Positive post nasal drip, oral mucosae normal, posterior oropharynx is adequate, no lesions and good dentition; negative malodorous breath or oral thrush present Mallampati Score: II: Mallampati Score Neck Neck: Positive normal visual inspection, full ROM, trachea midline, thick neck and female neck greater than 37 cm (15 in); negative lymphadenopathy, JVD or tender Chest Wall Chest: Positive normal inspection of the chest and symmetric chest movement; negative increased A/P diameter Resp lung sounds: Positive wheezes, diminished, wheeze present on forced exhalation, normal expiratory time and normal respiratory effort; negative rhonchi, rales or dullness to percussion Cardio Cardiac: Positive regular rate, regular rhythm, S1 normal and S2 normal; negative murmur GI GI: Positive normal to inspection, normal bowel sounds and obese; negative distended Genitourinary: Positive deferred Musc Musculoskeletal: Positive steady gait and ROM normal; negative kyphosis or scoliosis Skin Pulmonary Skin Exam: Positive intact; negative rash, lesion, ulcers, erythema, scaly or dermal atrophy Pulses Pulse: Yes pulses normal x4 extremities Extremities Extremities: No clubbing, No edema, Yes capillary refill normal, No cyanosis, No stasis dermatitis Neuro Neurologic: Yes conversant, Yes no focal neuro deficits, Yes cooperative, Yes normal cognition, Yes normal coordination, Yes normal concentration, Yes understands questions, No tremor Lymph Lymphatic: No lymphadenopathy, No tenderness, No cervical adenopathy, No axillary adenopathy Psych Appearance: Positive grossly normal, eye contact and well kempt Mental Status: Positive mental status grossly normal Mood: Positive congruent mood Affect: Positive normal affect Coding Level of Care Code Off vis,est,level 4 Diagnoses Daytime hypersomnia G47.19 Stage 3 severe COPD by GOLD classification J44.9 BMI 37.0-37.9, adult Z68.37 Chronic respiratory failure with hypoxia J96.11 07/13/17 1447 <Electronically signed by Marta JACOBSON> Date Marta JACOBSON Cosigner Signature: Date (if applicable) CC: Ele Pendleton Start: 06-24-2017 End: 06-24-2017 Pulmonary Function Test Comments: See Note; NOTES: [facility] Pulmonary Services/Neurology [facility] [place] [address] MR#: [id number] Acct: [id number] Name: TEAGAN VAUGHAN Rep #: [id number] : 1950 66 From: Twan Maynard DO Referring Dr: Twan Maynard D.O. Status: REG CLI Ordering Dr: Date: Location: [facility] Sex: F C INTRODUCTION: The patient is a 66-year-old female currently under the care of myself the presents for pulmonary function testing secondary to a diagnosis of COPD. Respiratory therapy reports good patient effort and reports no other concerns. Bronchodilators were used during testing. INTERPRETATION: Forced expiration spirometry demonstrates the presence of a severe large airways obstructive ventilatory defect. There was a significant response to aerosolized bronchodilators noted. Spirograms are of fair quality and do not plateau indicating slow emptying of the lungs. The respiratory flow volume loop reveals decreased expiratory flow rates at all lung volumes consistent with airways obstruction. Body plethysmography was performed and reveals an elevated TLC and RV, indicative of underlying hyperinflation and air-trapping. Diffusing capacity by single breath CO was severely reduced at 40% of predicted. IMPRESSION: These pulmonary function studies demonstrate the presence of a partially reversible severe large airways obstructive ventilatory defect with associated hyperinflation, air trapping and symmetric reduction in diffusing capacity. 06/24/17 1304 <Electronically signed by Twan Maynard DO> Date Twan Maynard DO CC: Twan Maynard D.O.; Ele Astudillo DO Date Dictated: 06/24/17 1301 Date Transcribed: 06/24/17 130 Commercial Marketing Specialist: RODO Signed Ele Astudillo Start: 06-18-2017 End: 06-18-2017 6 Minute Walk Test Comments: See Note; NOTES: [facility] Pulmonary Services/Neurology [address] [place] [address] MR#: [id number] Acct: [id number] Name: TEAGAN VAUGHAN Rep #: [id number] : 1950 66 From: Woody Galvez MD Referring Dr: Twan Maynard D.O. Date: Ordering Dr: Sex: F C Location: [facility] PSN 6 Minute Walk Test - 6 Minute Walk Test 6 Minute Walk Test: 6 Minute Walk Test PSN:6-Minute Walk Test Start: 06/18/17 09:45 Freq: Status: Active Protocol: [id number].[id number] Document 06/18/17 09:45 ROXANA (Rec: 06/18/17 09:51 ROXANA [id number]) 6 Minute Walk Test Date Performed 06/18/17 Time Performed 09:15 Height 5 ft 5 in Weight: 104.326 kg Weight in Pounds 230.[address]: Twan Maynard Assistive device used: None Pre-test Oxygen Delivery Method Room Air Pulse Ox (%) 93 Pulse Rate (60-100 beats/min) 94 Dyspnea Pamella Scale (0-10) 0 Exertion Pamella Scale (6-20) 6 1st minute Oxygen Delivery Method Room Air Pulse Ox (%) 91 Pulse Rate (60-100 beats/min) 105 H 2nd minute Oxygen Delivery Method Room Air Pulse Ox (%) 87 Pulse Rate (60-100 beats/min) 116 H Dyspnea Pamella Scale (0-10) 3 3rd minute Oxygen Flow Rate (L/min) (L/min) 2 Oxygen Delivery Method Nasal Cannula Pulse Ox (%) 97 Pulse Rate (60-100 beats/min) 113 H 4th minute Oxygen Flow Rate (L/min) (L/min) 2 Oxygen Delivery Method Nasal Cannula Pulse Ox (%) 92 Pulse Rate (60-100 beats/min) 116 H 5th minute Oxygen Flow Rate (L/min) (L/min) 2 Oxygen Delivery Method Nasal Cannula Pulse Ox (%) 90 Pulse Rate (60-100 beats/min) 121 H 6th minute Oxygen Flow Rate (L/min) (L/min) 2 Oxygen Delivery Method Nasal Cannula Pulse Ox (%) 90 Pulse Rate (60-100 beats/min) 123 H Dyspnea Pamella Scale (0-10) 2 Exertion Pamella Scale (6-20) 13 Post-test Oxygen Flow Rate (L/min) (L/min) 2 Oxygen Delivery Method Nasal Cannula Pulse Ox (%) 97 Pulse Rate (60-100 beats/min) 97 Full Laps Walked 14 Partial Lap, Number of Tiles Walked 40 Total Distance Walked (ft) 866 06/18/17 09:48 Cardiopulmonary Services by Lilly Krishnamurthy Patient started test on room air, SpO2 94%. At the 2nd minute patient was 87%, patient had walked 310 ft by this time. Placed patient on 2 lpm O2, SpO2 recovered to 97%. Patient walked the remaining 4 minutes and 556 ft on 2 lpm O2, SpO2 90% or greater. Initialized on 06/18/17 09:48 - END OF NOTE - Interpretation Interpretation: The patient was noted to be 93% on room air at rest. The patient then ambulated with no assistive devices, but in the second minute desaturated to 87%. The patient was placed on 2 L nasal cannula with improvement to 98%. Patient did desaturate as low as 90% and had persistent tachycardia noted with a peak heart rate of 123 bpm. In total, patient traveled 866 feet. These findings are consistent with a respiratory limitation exercise tolerance. - Recommendations Recommendations: Patient requires no supplemental oxygen at rest, but should be using 2 L/min with any exertion. 06/18/17 1503 <Electronically signed by Woody Galvez MD> Date Woody Galvez MD CC: Date Dictated: 06/18/17 1501 Date Transcribed: 06/18/171500 Commercial Marketing Specialist: Woody Galvez Signed Ele Astudillo Start: 06-14-2017 End: 06-14-2017 OR - History AND Physical Comments: See Note; NOTES: [facility] Pulmonary Rehab Reports [address] [place] [address] OR - History AND Physical MR#: [id number] Acct: [id number] Name: TEAGAN VAUGHAN Rep #: [id number] : 1950 66 From: Raf Bryson 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, 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, BS PCP: Ele Astudillo DO History of Present Illness Arrival date:: 06/14/17 Arrival time:: 13:03 Date of Referral:: 06/02/17 Date of Evaluation: 06/14/17 Referring Physician: Dr.Derek Maynard Primary Diagnosis: COPD Stage III Severe, asthma component History of Present Illness: Patient is a 66 yr old female patient of Dr. Twan Maynard who presents to pulmonary rehab today for her COPD and asthma. mMRC Breathless Scale: When is the patient short of breath? Y/N Grade: Description of Breathlessness: Respiratory Problems: Yes: Fatigue, Wheezing, Able to Speak in Full Sentences, Dyspnea with Activity No: Retain Secretions, Limited Range of Motion, Dizziness, Ankle Swelling, Anxiety, Panic, Dyspnea Lying Down Flat, Cough with Secretions Home Medications: Home Medications Levothyroxine [Synthroid] 25 mcg PO DAILY 06/10/16 Montelukast [Singulair] 10 mg PO DAILY 06/10/16 albuterol sulfate 1.25 mg/3 mL solution for nebulization 1.25 mg INHALATION Q4H PRN ml 05/28/17 citalopram 10 mg tablet 10 mg PO QDAY 05/28/17 fluticasone 50 mcg/actuation nasal spray,suspension 2 spray INTRANASAL QDAY 05/28/17 lansoprazole 15 mg capsule,delayed release 15 mg PO QDAY 05/28/17 rizatriptan 10 mg tablet 10 mg PO ONCE PRN 05/28/17 zolpidem 10 mg tablet 10 mg PO QHS tab 05/28/17 albuterol sulfate HFA 90 mcg/actuation aerosol inhaler 2 puff INHALATION Q4H PRN #1 device 06/01/17 budesonide-formoterol HFA 160 mcg-4.5 mcg/actuation aerosol inhaler 2 puff PO BID #1 device 06/01/17 metoprolol succinate ER 25 mg tablet,extended release 24 hr 25 mg PO QDAY tab 06/01/17 tiotropium bromide 2.5 mcg/actuation mist for inhalation 2 puff INHALATION Q24H #1 device 06/01/17 Allergies/Adverse Reactions: Allergies No Known Allergies Allergy (Verified 06/01/17 09:14) - Secretions Thick:: No Thin:: No Hx of Sleep Apnea: No Do you snore loudly (louder than talking or can be heard through closed doors)?: Yes Do you often feel tired/ fatigued/ sleepy during daytime?: Yes Has anyone observed you stop breathing during sleep?: No History of Hypertension (for STOP score): No STOP Results: Positive Medical Utilization Do you use a peak flow meter at home?: No Do you use a spacer device with your inhalers?: No Number of hospital visits in the last year?: 0 Number of emergency room visits in the last year?: 1 Do you see your physician on a regular schedule?: Yes How often?: [address] Maynard; Dr. Astudillo on PRN basis. Advanced Directives - Advanced Directives Power of Container Finisher: Yes Living Will: Yes Advance Directives Information Provided: No Advance Directives on File: No DNR Order?:: No - MOLST See MOLST form: No Past Medical History Medical History: Past Medical History (Last Reviewed 06/01/17 @ 09:14 by Eileen Mathew) BMI 37.0-37.9, adult (Chronic) Z68.37 Hypothyroidism (Chronic) E03.9 Acute asthma exacerbation (Acute) J45.901 Cough R05 Fatigue R53.83 Hypoxia R09.02 Pneumonia J18.9 Shortness of breath R06.02 Allergic rhinitis J30.9 Asthma J45.909 COPD (chronic obstructive pulmonary disease) J44.9 Depression F32.9 HTN (hypertension) I10 Postnasal drip R09.82 Surgical History: Past Surgical History (Last Reviewed 06/01/17 @ 09:14 by Eileen Mathew) H/O thumb surgery Z98.890 to remove arthritis H/O: hysterectomy Z90.710 History of appendectomy Z90.49 TMJ surgery Family History: Family History (Last Reviewed 06/01/17 @ 09:14 by Eileen Mathew) Mother Ovarian cancer Brother Brain cancer Grandmother Breast cancer - Current/ Previous Services Pulmonary Rehab:: No Social History - Smoking History Smoking Status: Former smoker Years Smokin Packs Smoked per Day: 1 Hx Smoking Cessation Date: 1998 Hx Tobacco Use: Yes Hx Smoking Exposure: No - Alcohol Use Alcohol Usage: No - Substance Abuse Hx Substance Use: No - Occupation Occupation (List type of work in comments):: Retired - Hobbies, Recreation, Social Activities Hobbies: Sewing, Hiking, Walking, Exercise - bicycling Recreational Activities: I am able to engage in all my recreational activities Functioning ADL/IADL - Current Ability Current Ability: Independent Self-Care (e.g.,grooming, dressing, AND bathing), Independent Ambulation, Independent Transfer, Independent Household tasks (e.g., light meal prep, laundry, shopping) - Pt Functioning Prior to Problem Prior Functioning: Self-Care (e.g.,grooming, dressing, AND bathing): Independent, Ambulation: Independent, Transfer: Independent, Household tasks (e.g., light meal prep, laundry, shopping): Independent Social Environment - Status Marital Status: - Current Living Arrangements Living Environment:: Spouse - Children How many children do you have?: 2 Do any of your children live nearby?: Yes - Safety Do you feel safe in your surroundings?: Yes - Assistance Do you need any assistance at home?: none Review of Systems Review of Systems: Right click = Denies ([place]). Left click = Reports ([place]) Respiratory: Reports: Appetite, Normal, Sleep, Normal. Denies: Cough, SOB at Rest, Sputum production Is Patient Pain Free?: No Pain Location: none Risk Factor Assessment - Chief Complaint Chief Complaint: Patient is known asthmatic with stage III classification Severe COPD. - Vital Signs Temperature: 98.7 F Pulse Rate: 96 Pulse Ox: 93 - room air Blood Pressure: 132/84 Nailbeds:: pink - Smoking Do you use tobacco products? If so, how much and for how long?: No If no, have you EVER used tobacco products?: Quit greater than 12 months ago Exposure to 2nd-hand smoke? How much and how long?: No Do you plan to quit smoking?: No - Diabetes Nutrition Referral for Diabetes: No - Obesity Height: 5 ft 5 in Weight:: 235 lb Weight in Pounds: 235.0 lbs Weight Source: Standing Scale Body Mass Index (BMI): 39.1 Nutritional Referral for Obesity: Yes - Not interested at present time, maybe at some point. - Physical Activity Physical Inactivity: Reg Exercise 30 min/day - Risk Stratification Risk Guidelines: Lowest Risk: Risk Factor for Smoking, Risk Factor for Dyslipidemia, Risk Factor for Diabetes, Risk Factor for Obesity, Risk Factor for Hypertension, Risk Factor for Sedentary Lifestyle, Risk Factor for Depression - For Smoking Smoking Risk Guidelines: Smoking Low Risk: None or quit greater than 6 months ago. Smoking Moderate Risk: Smoker or quit 6 months or less ago. Smoking High Risk: Smoker - For Dyslipidemia Dyslipidemia Risk Guidelines: Low Risk: Moderate Risk: High Risk: 15-25% fat 25.1-29% fat >/= 30% fat. <7% sat fat 7-9% sat fat >9% sat fat. <150 mg chol 150-299 mg chol >/= 300 mg chol. LDL <100 LDL 100-129 LDL >/= 130. Chol/HDL ratio <5.0 Chol/HDL ratio 5.0-6.0 Chol/HDL ratio >6.0. Triglycerides <100 Triglycerides 100-149 Triglycerides >/= 150 - For Diabetes Mellitus Diabetes Risk Guidelines: Diabetes Low Risk: HgA1c <6.5% and/or FBG <120. Diabetes Moderate Risk: HgA1c 6.6-7.9% and/or FBG 120-180. Diabetes High Risk: HgA1c >/= 8% and/or FBG >180 - For Obesity/Overweight Obesity/Overweight Risk Guidelines: Obesity Low Risk: BMI <25.0. Obesity Moderate Risk: BMI 25-29.9. Obesity High Risk: BMI >/= 30.0 - For Hypertension Hypertension Risk Guidelines: Hypertension Low Risk: Systolic <120 and Diastolic <80. Hypertension Moderate Risk: Systolic 120-139 and Diastolic 80-89. Hypertension High Risk: Systolic >/= 140 and Diastolic >/= 90 - For Sedentary Lifestyle Sedentary Lifestyle Risk Guidelines: Sedentary Lifestyle Low Risk: >/= 1,500 kcal/week. Sedentary Lifestyle Moderate Risk: 700-1,499 kcal/week. Sedentary Lifestyle High Risk: < 700 kcal/week - For Depression Depression Risk Guidelines: Depression Low Risk: Not clinically depressed. Depression Moderate Risk: Mildly depressed. Depression High Risk: Clinically depressed Motivation - Motivation to Participate On a scale of 1 to 10, how prepared are you to commit to attending program?: 9 What do you see as barriers to successfully being able to complete the program?: can't improve What do you see as the benefits of succesfully completing the program? In other words, what do you hope to get out of participating in the program?: breathe better Are there issues you are dealing with that will interfere with completing the program?: none Do you have a spouse or signficant other, family or friends who will help support you to complete the program?: yes Diagnostic Data Review - 6 Minute Walk Test 6 Minute Walk Test: Patient ambulated 708 feet over the course of 6 minutes on room air without assistance device. She did desaturate to 89% room air. - Pulmonary Function Test FEV1:: 0.95 - 37% predicted FVC:: 2.30 - 70% predicted FEV1/FVC%:: 41 06/14/17 1321 <Electronically signed by Raf Freehahn 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, 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, BS> Date Raf Brsyon CRT, RCP, BS Outcome assessment reviewed. Exercise plan approved as documented. Treatment plan and goals support patient needs/abilities. Continue with current plan. I certify the patient demonstrates improvement and remains willing and capable of participation. the patient continues to benefit from pulmonary services/training. The patient may continue at current intensity, endurance and modality and progress per protocol. 06/14/17 1904<Electronically signed by Yo Rutledge MD> Cosigner Signature: Date Yo Rutledge MD CC: Signed Ele Astudillo Start: 06-14-2017 End: 06-14-2017 OR - Individual Treatment Plan Comments: See Note; NOTES: [facility] Pulmonary Rehab Reports [address] [place] [address] OR - Individual Treatment Plan MR#: [id number] Acct: [id number] Name: TEAGAN VAUGHAN Rep #: [id number] : 1950 66 From: Raf Bryson CRT, RCP, BS PCP: Ele Astudillo DO General Information - General Information Admitting Diagnosis: COPD Stage III Severe, asthma Gold Classification:: GOLD 3: Severe Oxygen: none - PFT FEV1:: 0.95 FVC:: 2.30 FEV1/FVC%:: 41 - Education/Goals Barriers to Learning: None Individual Counseling: Initial Assessment: Dyspnea control techniques at rest, activity, and ADLs, Inhaled and respiratory medications, ADL management and pacing, Nutrition AND weight management, Home exercise plan AND guidelines Patient Goals: Breathe better: Initial Assessment, Increase endurance/stamina: Initial Assessment, Return to recreation/hobby: Initial Assessment, Improve weight: Initial Assessment Exercise - Initial Assessment - Visit Date of Eval: 06/14/17 - established plan of care - Problem/Goals Problems: Knowledge deficit exercise guidelines, Knowledge deficit exercise safety - Exercise Prescription Mode:: Treadmill, Rower, Airdyne, NuStep, Arm Ergometer Frequency (x/week): 3 Duration:: 30 MET LEVEL:: 2 - 2.0-3.0 HR (bpm):: 116 - 108-116 THHR Exercise Progression: per protocol. - Plan Plan and Plan to Review:: Benefits of exercise, Core components of exercise, How to measure dyspnea level, How to monitor dyspnea level, Exercise intensity, Exercise safety guideline, Home exercise guidelines, Pamella: 3-4/11-13 Disease Management - Initial - Problems/Goals-Hypoxemia Hypoxemia Problems:: No home O2 Hypoxemia Goals:: Hypoxemia managed - Problems/Goals-Medications Medication Goals: Correct technique/timing AND care of MDI, DPI, nebulizer, and spacer. - Problems/Goals-Bronchial Hygiene Bronchial Hygiene Problems:: Respiratory infection Prevention/Management Bronchial Hygiene Goals:: Pt demonstrates effective cough, effective secretion clearance., Pt describes signs and symptoms of infection. - Initial Assessment SpO2:: 93 Does pt report taking home meds as prescribed?: Yes Medications: Yes MDI, Yes DPI, Yes NEB, No Spacer Patient Reports:: No cough - Plans Hypoxemia Plan:: Monitor SpO2 rest AND with exercise, Train appropriate O2 use with exercise, Train O2 safety AND systems Reviewed prescribed medications:: Purpose, Schedule, Side effects, Importance of compliance Instruct correct technique/timing AND care:: MDI, DPI, Nebulizer, Return demo use of inhaler Bronchial Hygiene Plan: Controlled cough, Vibratory PEP device, Hydration, Hand hygiene, Signs/symptoms to report: Psychosocial - Initial Assess - Problems/Goals Problems: Impaired Q.O.L. Psychosocial Goals: Improved Q.O.L. - Psychosocial Test Depression:: Impaired QOL Tests Completed: Mood Scale Test Referred to MD for counseling:: No - Plan Reviewed screening results: Yes Instructions given regarding:: Benefits of exercise, Relaxation techniques, Training in coping strategies Tobacco - Initial Assessment - Program Goals Tobacco Program Goals: Complete smoking cessation. Attend education classes. Improve Knowledge Test score - Stage of Change Stages of Change:: Action - Learning Barriers Learning Barriers: Ready to Learn - Family Support Do you have family support?: Yes - Tobacco Use Tobacco Use: Non-smoker Do you use smokeless tobacco?: No - Intervention Smoking Cessation Referral:: No Individual Education/Counseling:: No Education Schedule Given:: Yes - Education Gave Education Materials For:: Pulmonary Disease, Risk Factors, Breathing Techniques, Medical Compliance, Pulmonary A AND P, Exacerbation Signs AND Symptoms, Stress AND Relaxation Nutrition/Wt Mgmt - Initial - Problems/Goals Problems: Overweight Goals: Wt Loss 1-2 lbs per week - Weight Management Knowledge Deficit Management of:: Overweight Admit Height:: 5 ft 5 in Admit Weight:: 235 lb Admit BMI:: 39.1 - Diabetes Diabetes:: No Insulin: No Do you monitor your blood sugar at home?: No - Intervention Referral to dietitian:: No Referral to Diabetic Clinic:: No Will attend diet classes:: Yes - Plan Nutrition Plan: Yes Nutrition education class:, Yes Medication education class [Prednisone]:, Yes Weight control education class: Patient Health Questionnaire Initial Assessment 1. Little interest or pleasure in doing things: More than half the days 2. Feeling down, depressed, or hopeless: More than half the days 3. Trouble falling or staying asleep, or sleeping too much: More than half the days 4. Feeling tired or having little energy: Nearly every day 5. Poor appetite or overeating: Several days 6. Feeling bad about yourself -- or that you are a failure or have let yourself or your family down: Several days 7. Trouble concentrating on things, such as reading the newspaper or watching television: Not at all 8. Moving or speaking so slowly that other people could have noticed. Or the opposite - being so fidgety or restless that you have been moving around a lot more than usual: Not at all 9. Thoughts that you would be better off , or of hurting yourself in some way: Not at all How difficult have these problems made it for you to do your work, take care of things at home, or get along with other people?: Not difficult at all Total Score: 11 COPD Knowledge Test Initial COPD is a lung disease that:: Makes it hard to breathe AND gets worse over time In the [place] the term COPD describes 2 main lung conditions:: Emphysema AND pulmonary hypertension The most common lung irritant that causes COPD is:: Cigarette smoke Common signs and symptoms of COPD include:: An ongoing cough/cough that produces a large amount of mucus, AND SOB If you have COPD, what steps can you take?: All of the above Swelling of the ankles is common in COPD:: False Fatigue [tiredness] is common in COPD:: True Wheezing is common in COPD:: True Crushing chest pain is common in COPD:: False Rapid weight loss is common in COPD:: False Breathlessness is a normal response to exercise: True Exercise should be avoided if it makes you short of breath: False All bronchodilators act within 10 minutes: False A spacer device increases the medication to the lungs: True Annual flu vaccine is recommended for pts w/lung disease: False COPD Knowledge Test Total Score:: 13 COPD Assessment Test [CAT] - Questions Never cough = 0, Cough all the time = 5: 1 No phlegm = 0, Chest full of phlegm = 5: 1 No chest tightness = 0, Chest very tight = 5: 2 No breathless w/exertion = 0, Very breathless w/exertion = 5: 5 No limitations w/activity = 0, Very limited w/activity = 5: 2 Confident leaving home = 0, Not at all confident = 5: 0 Sleep soundly = 0, Don't sleep soundly = 5: 3 Lots of energy = 0, No energy at all = 5: 5 Total CAT score:: 19 Self-Efficacy Initial Assessment We would like to know how confident you are in doing certain activities. Please select your confidence level for:: Select your confidence level for the following using the scale 1-10 where 1 is not at all confident and 10 is totally confident. Your score is the average of all 6 responses. Fatigue: How confident are you that you can keep the fatigue caused by your disease from interfering with the things you want to do? Select Number: 5 Physical Discomfort or Pain: How confident are you that you can keep the physical discomfort or pain of your disease from interfering with the things you want to do? Select Number: 5 Emotional Distress: How confident are you that you can keep the emotional distress caused by your disease from interfering with the things you want to do? Select Number: 8 Other Symptoms or Health Problems: How confident are you that you can keep other symptoms or health problems from interfering with the things you want to do? Select Number: 3 Different Tasks and Activities: How confident are you that you can do the different tasks and activities needed to manage your health condition so as to reduce your need to see a doctor? Select Number: 7 Medication: How confident are you that you can do things other than just taking medication to reduce how much your illness affects your everyday life? Select Number: 8 Total Score:: 6 Nutrition Survey - Nutrition Survey Instructions Scoring Instructions: Scoring is as follows: Yes = 1 points. No = 0 point. Patient score that is >/=12 is considered to be at potential nutritional risk and could benefit from a referral to a registered dietitian. - Nutrition Survey Initial Have you lost >10 lbs over the past 2 months without trying?: No Are you following a special diet at home for diabetes, low fat, or low salt?: No Are you interested in meeting with a dietitian for help understanding your diet?: No Do you eat less than 3 meals a day?: No Do you eat fatty meats (castellanos, sausage, ribs, etc), fried foods, desserts, large amounts of salad dressings, margarine, butter, or cheese most days?: Yes Do you have food allergies? [Enter types in comment field]: No Do you eat in restaurants more than 3 times a week?: No Do you season food with salt, seasoning salt, or garlic salt?: No Do you used canned, boxed, frozen meals, or soups, seasoning packets?: Yes Total Score:: 2 06/14/17 1419 <Electronically signed by Raf Bryson CRT, RCP, CHRISTINA> Date Raf Bryson CRT, RCP, CHRISTINA Outcome assessment reviewed. Exercise plan approved as documented. Treatment plan and goals support patient needs/abilities. Continue with current plan. I certify the patient demonstrates improvement and remains willing and capable of participation. the patient continues to benefit from pulmonary services/training. The patient may continue at current intensity, endurance and modality and progress per protocol. 06/14/17 4792<Electronically signed by Yo Rutledge MD> Cosigner Signature: Date Yo Rutledge MD CC: Signed Ele Baudilio Start: 06-01-2017 End: 06-01-2017 Pulmonary Visit Report Comments: See Note; NOTES: [facility] [address] [place] [address] OFFICE VISIT Date of Service: 06/01/17 MR#: [id number] Acct: [id number] Name: TEAGAN VAUGHAN Rep #: [id number] : 1950 Provider: Twan Maynard D.O. Age/Sex: 66/F Location: [facility] Status: Signed Assessment AND Plan 1. COPD (chronic obstructive pulmonary disease) J44.9 Plan The patient has baseline, chronic dyspnea on exertion, unchanged from previous. She is in need of a therapeutic substitution for her currently prescribed LAMA due to a recent insurance formulary change. Therefore, the patient will be transition from Tudorza to Spiriva Respimat. Instructions for use have been provided. The patient will be continued on Symbicort along with her as needed albuterol. Prior to her follow-up office visit with me, I have asked that she obtain repeat pulmonary function testing and a 6 minute walk test. A referral to pulmonary rehabilitation will also be placed. Orders Orders: 2. Allergic rhinitis J30.9 Plan Continue Singulair and Flonase as prescribed. Continue to follow-up with ENT for allergy shots. Plan Detail Other Medications New: tiotropium bromide 2.5 mcg/actuation (Spiriva Respimat) admini2 puffs Inhalation Q24H ster at approximately same time(s) each day Discontinued: Follow Up 3 Months (DMB) HPI HPI Comments Details: The patient is a 66-year-old female who presents to the clinic today for a routine scheduled follow-up office visit. If you recall, I initially met the patient when she was admitted to the hospital on May 2016, during which time she was treated for a presumptive asthma exacerbation. The patient has a prior smoking history of approximately 30 pack years, having quit completely in 2008. Pulmonary function testing completed in June 2016 showed evidence of a severe large airways obstructive ventilatory defect with an associated response to aerosolized bronchodilators. There was evidence of hyperinflation, air trapping and a moderate reduction in diffusing capacity. A 6 minute walk test also completed at that time showed no evidence of significant oxygen desaturation with exertion. She also has a known history of seasonal allergic rhinitis. She has had positive RAST testing previously. Her serum IgE level was also noted to be 121. Surface echocardiogram completed in July 2016 revealed normal LV function with an ejection fraction of 60%. The patient has been followed by ENT and is currently receiving allergy injections. She has been maintained on a triple therapy inhaler regimen with Symbicort, Tudorza and Ventolin. Today, the patient reports ongoing shortness of breath with exertion, grossly unchanged from previous. She is currently utilizing her rescue inhaler approximately 1-2 times per day. She states that her Tudorza recently underwent a formulary tier change and she is in need of an alternative medication for substitution. He denies the presence of a cough, chest tightness or wheezing. She continues to receive allergy injections, managed by ENT. Her weight has remained relatively stable. She denies fevers, chills or night sweats. She reports no chest pain, dizziness or lightheadedness. I did discuss the possibility of enrollment in pulmonary rehabilitation with the patient. Following this discussion, the patient is agreeable to proceed with a referral. Intake Vital Signs06/01/17 Height 5 ft 5 in 06/01/17 Weight: 235 lb Intake Visit Reasons: 6 M FU Allergies No Known Allergies Allergy (Verified 06/01/17 09:14) Medications Levothyroxine [Synthroid] 25 mcg PO DAILY 06/10/16 [History Confirmed 05/28/17] Montelukast [Singulair] 10 mg PO DAILY 06/10/16 [History Confirmed 05/28/17] albuterol sulfate 1.25 mg/3 mL solution for nebulization 1.25 mg INHALATION Q4H PRN ml 05/28/17 [History Confirmed 05/28/17] citalopram 10 mg tablet 10 mg PO QDAY 05/28/17 [History Confirmed 05/28/17] fluticasone 50 mcg/actuation nasal spray,suspension 2 spray INTRANASAL QDAY 05/28/17 [History Confirmed 05/28/17] lansoprazole 15 mg capsule,delayed release 15 mg PO QDAY 05/28/17 [History Confirmed 05/28/17] rizatriptan 10 mg tablet 10 mg PO ONCE PRN 05/28/17 [History Confirmed 05/28/17] zolpidem 10 mg tablet 10 mg PO QHS tab 05/28/17 [History Confirmed 05/28/17] albuterol sulfate HFA 90 mcg/actuation aerosol inhaler 2 puff INHALATION Q4H PRN #1 device 06/01/17 [Rx Confirmed 06/01/17] budesonide-formoterol HFA 160 mcg-4.5 mcg/actuation aerosol inhaler 2 puff PO BID #1 device 06/01/17 [Rx Confirmed 06/01/17] metoprolol succinate ER 25 mg tablet,extended release 24 hr 25 mg PO QDAY tab 06/01/17 [History Confirmed 06/01/17] tiotropium bromide 2.5 mcg/actuation mist for inhalation 2 puff INHALATION Q24H #1 device 06/01/17 [Rx Confirmed 06/01/17] PFS Medical History BMI 37.0-37.9, adult (Chronic) Hypothyroidism (Chronic) Acute asthma exacerbation (Acute) Cough (Acute) Fatigue (Acute) Hypoxia (Acute) Pneumonia (Acute) Shortness of breath (Acute) Allergic rhinitis (Chronic) Asthma (Chronic) COPD (chronic obstructive pulmonary disease) (Chronic) Depression (Chronic) HTN (hypertension) (Chronic) Postnasal drip (Chronic) Surgical History H/O thumb surgery (Resolved) H/O: hysterectomy (Resolved) History of appendectomy (Resolved) TMJ surgery (Resolved) Family History Mother Ovarian cancer Brother Brain cancer Grandmother Breast cancer Social History Smoking Status: Former smoker quit date: 03/01/07 pack-years: 23 second hand exposure: Yes alcohol intake: never substance use type: does not use Review of Systems Const CONSTITUTIONAL: Negative anorexia, body ache, chills, daytime sleepiness, fever(s), night sweats, oral thrush, stops breathing during sleep, weight loss, sleeping in chair, fatigue, weight loss, weight gain, frequent colds, seasonal allergies, other, headache(s) or orthopnea EETM Ear Nose Throat Mouth: Positive hearing normal; negative hard of hearing, hoarseness, dry mouth in morning, change in vision, itchy eyes, eye pain, swallowing Difficulty, ear pain, nose bleed, headache(s), mouth pain, nasal congestion, nasal discharge, post nasal drip, sinus pain, sinus pressure, sore throat or other Cardio Cardiovascular: Negative chest pain, chest pain at rest, chest pain with activity, irregular heart rhythm, edema, shortness of breath when lying down, palpitations, murmur or other Resp Respiratory: Positive as per HPI and shortness of breath shortness of breath: Positive with activity; negative pain with cough, wheezing, chest congestion, cough, chest tightness, pain on inspiration, inhalers, increase use of rescue inhalers, snoring, apnea or other Gastro Gastrointestional: Negative bloody stools, change in appetite, difficulty swallowing, reflux, hematemesis, melena stool, loose stool, constipation or other Genitourinary: Negative blood in urine, nocturia, pain with urination or other Musc Musculoskeletal: Negative body pain, back pain, neck pain or other Skin/Breast Skin/Breast: Negative dry skin, itching, rash, unusual bruising, breast lump or other Neuro Neurological: Negative restless legs, confusion, weakness or other Psych Psychocological: Negative abnormal sleep pattern, anxiety, thoughts of hurting self/others, hopelessness or other Lymph Lymphatic: Negative easy bleeding, easy bruising, swollen lymph nodes or other Exam Const Constitutional: Positive conversant, cooperative, in no acute respiratory distress, well developed, well nourished, good hygiene and obese Head Head: Positive normocephalic and atraumatic; negative cyanosis of lips/distal nose Eyes Eye: Positive clear conjunctiva; negative nystagmus or scleral abnormality Ears Ear: Positive hearing normal; negative hard of hearing Nose Nose: Positive external nose normal; negative epistaxis Mouth Mouth: Positive oral mucosae normal and posterior oropharynx is adequate; negative no lesions or post nasal drip Mallampati Score: II: Mallampati Score Neck Neck: Positive normal visual inspection and trachea midline; negative lymphadenopathy Chest Wall Chest: Positive symmetric chest movement Normal AP diameter. Resp Globally diminished air movement bilaterally without appreciable wheezes, rales or rhonchi. Slight prolongation of expiratory phase. Cardio Cardiac: Positive regular rate, regular rhythm, S1 normal and S2 normal; negative rub, gallop or murmur GI GI: Positive normal bowel sounds and obese Soft without distention Genitourinary: Positive deferred Musc Musculoskeletal: Positive steady gait Skin Pulmonary Skin Exam: Positive intact; negative lesion, ulcers, dermal atrophy or rash Pulses Pulse: Yes Pedal pulses present: Extremities Extremities: No clubbing, No cyanosis, No edema Neuro Neurologic: Yes conversant, Yes no focal neuro deficits, Yes cooperative Lymph Lymphatic: No lymphadenopathy Psych Appearance: Positive grossly normal Mental Status: Positive mental status grossly normal Mood: Positive congruent mood Affect: Positive normal affect Coding Level of Care Code Off vis,est,level 3 Diagnoses COPD (chronic obstructive pulmonary disease) J44.9 Allergic rhinitis J30.9 06/01/17 0954 <Electronically signed by Twan Maynard DO> Date Twan Maynard DO Cosigner Signature: Date (if applicable) CC: Ele Pendleton Start: 09-09-2016 End: 12-02-2016 DMB Marta Butts SAW FEEDER Work Phone: Start: 09-09-2016 End: 12-02-2016 Follow Up Appt 3 months Marta waddell [employer]ER Work Phone: Start: 08-14-2016 End: 08-14-2016 Echocardiogram Complete Comments: See Note; NOTES: [facility] Cardiovascular Services [address] [place] [address] Echo Complete 08/14/16 1107 MR#: [id number] Acct: [id number] Name: TEAGAN VAUGHAN Rep #: [id number] : 1950 65 From: Jase Post MD Attending Dr: Twan Maynard D.O. Status: REG CLI Ordering Dr: Twan Maynard DO Date: 08/14/16 Location: [facility] Sex: F C Admitted: Reason For Study: SOB Procedure This was a 2D Doppler, Color Flow transthoracic echocardiogram. The study was technically difficult. Exam performed in department. Left Ventricle Normal LV size. Left ventricular systolic function is normal. The estimated ejection fraction is 60 %. No regional wall motion abnormalities noted. Right Ventricle Normal RV size. Normal systolic function. Atria Normal left atrium. Normal right atrium. Mitral Valve Normal mitral valve. Trivial eccentric mitral valve insufficiency. Tricuspid Valve Normal tricuspid valve. Aortic Valve Normal aortic valve. Pulmonic Valve The pulmonic valve is not well visualized. Great Vessels Normal aortic root. The pulmonary artery is normal size. Inferior vena cava collapse with sniff. Pericardium/Pleural Epicardial fat. MMode/2D Measurements AND Calculations LVIDd: 3.6 cm IVSd: 1.1 cm Ao root diam: 3.1 cm LVIDs: 2.3 cm LVPWd: 1.4 cm LA dimension: 3.0 cm RVDd: 3.3 cm FS: 37.1 % LAV(MOD-bp): 34.0 ml LA A4 area: 12.9 cm2 RA A4 area: 11.5 cm2 LAV(MOD-bp) Indexed: 16.4 ml/m2 LAV(MOD-sp2): 33.3 ml LAV(MOD-sp4): 31.5 ml Doppler Measurements AND Calculations MV V2 max: 107.9 cm/sec MV P1/2t max luanne: 67.4 cm/sec Ao V2 max: 107.2 cm/sec MV max P.7 mmHg MV P1/2t: 57.5 msec Ao max P.6 mmHg MV V2 mean: 66.0 cm/sec MV dec slope: 343.2 cm/sec2 MV mean P.0 mmHg MVA(P1/2t): 3.8 cm2 MV V2 VTI: 17.4 cm LV V1 max: 89.7 cm/sec PA V2 max: 86.7 cm/sec LV V1 max P.2 mmHg Interpretation Summary Normal LV size. Left ventricular systolic function is normal. The estimated ejection fraction is 60 %. Trivial eccentric mitral valve insufficiency. Epicardial fat. Ordering Physician: Twan Maynard D.O. Referring Physician: Twan Maynard Performed By: Jeffrey Gibson RCS 08/14/16 1454 Date Jase Post MD CC: Twan Manyard D.O.; Ele Astudillo DO Date Dictated: 08/14/16 1107 Date Transcribed: 08/14/164 Commercial Marketing Specialist: Signed Ele Astudillo Start: 08-12-2016 End: 12-02-2016 DMB Rebeca Acevedo NP Work Phone: Start: 08-12-2016 End: 08-13-2016 ENT Referral Rebeca Acevedo NP Work Phone: Start: 08-12-2016 End: 12-02-2016 Follow Up Appt 3 months Rebeca Acevedo NP Work Phone: Start: 08-12-2016 End: 08-13-2016 ENT Referral Rebeca Acevedo NP Work Phone: Start: 07-30-2016 End: 08-03-2016 *[facility] [place], [place] [id number] Twan Maynard DO Work Phone: Start: 07-30-2016 End: 12-02-2016 [facility]SM Twan Maynard DO Work Phone: Start: 07-30-2016 End: 12-02-2016 Echo ttc r-t 2d w/wom-mode compl spec&colr d Twan Maynard DO Work Phone: Start: 07-30-2016 End: 12-02-2016 Follow Up Appt 6 weeks Twan Maynard DO Work Phone: Start: 07-30-2016 End: 08-03-2016 IgE [Mass/volume] in Serum Twan Maynard DO Work Phone: Start: 07-30-2016 End: 08-03-2016 *[id number] Allergens,[id number] Twan Maynard DO Work Phone: Start: 07-30-2016 End: 08-03-2016 Globulin Twan Maynard DO Work Phone: Start: 07-30-2016 End: 08-03-2016 IgE [Mass/volume] in Serum Twan Maynard DO Work Phone: Start: 07-22-2016 End: 07-22-2016 Pulmonary Function Report Comp Comments: See Note; NOTES: [facility] Pulmonary Services/Neurology [address] [place] [address] Pulmonary Function Test (Comp) MR#: [id number] Acct: [id number] Name: TEAGAN VAUGHAN Rep #: [id number] : 1950 65 From: Twan Maynard DO Referring Dr: Marta Butts INSTALLER Status: REG CLI Ordering Dr: Marta Butts INSTALLER-C Date: 07/21/16 Location: [facility] Sex: F C DATE OF SERVICE: 07/21/2016 INTRODUCTION: The patient is a 65-year-old female currently being seen by Marta Butts NP that presents for pulmonary function testing secondary to a diagnosis of asthma. Respiratory therapy reports good patient effort and reports no other concerns. Bronchodilators were used during testing. INTERPRETATION: Forced expiration spirometry demonstrates the presence of a severe large airways obstructive ventilatory defect. There was a significant response to aerosolized bronchodilators, based on overall change in both FEV1 and FVC. Spirograms are of good quality and do not plateau indicating slow emptying of the lungs. The respiratory flow volume loop reveals decreased expiratory flow rates at all lung volumes consistent with airways obstruction. Body plethysmography was performed and reveals an elevated TLC to 125% predicted and an elevated RV to 205% of predicted. This would be indicative of underlying hyperinflation and air trapping. Diffusing capacity by single breath CO is moderately reduced at 45% of predicted. IMPRESSION: These pulmonary function studies demonstrate the presence of a severe large airways obstructive ventilatory defect with an associated significant response to aerosolized bronchodilators. There is evidence of hyperinflation, air trapping and a moderate reduction in diffusion capacity. The pattern of this study, in the appropriate clinical setting, would be suggestive of chronic obstructive pulmonary disease/asthma overlap. Clinical correlation is recommended. There are no previous pulmonary function studies available for comparison. DO Paco Gray C: Referring Provider . T: NTS JOB: [id number] 07/22/16 1052 <Electronically signed by Twan Maynard DO> Date Twan Maynard DO CC: Marta Butts; Twan Maynard D.O.; Ele Astudillo DO Date Dictated: 07/21/16 1543 Date Transcribed: 07/21/161542 Commercial Marketing Specialist: Signed Ele Astudillo Start: 07-07-2016 End: 07-08-2016 6 Minute Walk Test Comments: See Note; NOTES: [facility] Pulmonary Services/Neurology [address] [place] [address] MR#: [id number] Acct: [id number] Name: TEAGAN VAUGHAN Rep #: [id number] : 1950 65 From: Twan Maynard DO Referring Dr: Marta Butts NP Date: Ordering Dr: Sex: F C Location: PSN PSN 6 Minute Walk Test - 6 Minute Walk Test 6 Minute Walk Test: 6 Minute Walk Test PSN:6-Minute Walk Test Start: 07/07/16 11:21 Freq: Status: Active Document 07/07/16 11:00 HG (Rec: 07/07/16 11:24 HG [id number]) 6 Minute Walk Test Date Performed 07/07/16 Time Performed 11:00 Height 1.65 m Weight: 102.058 kg Weight in Pounds 225.[address]: Marta Butts Assistive device used: None Pre-test Oxygen Delivery Method Room Air Pulse Ox 90 Pulse Rate (beats/min) 118 Dyspnea Pamella Scale (0-10) 2 Exertion Pamella Scale (6-20) 11 1st minute Oxygen Delivery Method Room Air Pulse Ox 91 Pulse Rate (beats/min) 107 2nd minute Oxygen Delivery Method Room Air Pulse Ox 90 Pulse Rate (beats/min) 120 3rd minute Oxygen Delivery Method Room Air Pulse Ox 89 Pulse Rate (beats/min) 130 Number of Rests Taken 1 Reported Symptoms Increased Work of Breathing 4th minute Oxygen Delivery Method Room Air Pulse Ox 90 Pulse Rate (beats/min) 124 5th minute Oxygen Delivery Method Room Air Pulse Ox 91 Pulse Rate (beats/min) 100 6th minute Oxygen Delivery Method Room Air Pulse Ox 90 Pulse Rate (beats/min) 124 Post-test Oxygen Delivery Method Room Air Pulse Ox 93 Pulse Rate (beats/min) 119 Dyspnea Pamella Scale (0-10) 3 Exertion Pamella Scale (6-20) 13 Full Laps Walked 12 Partial Lap, Number of Tiles Walked 0 Total Distance Walked (ft) 708 - Interpretation Interpretation: The patient ambulated 708 feet over the course of 6 minutes on room air without assistive devices or breaks. Pretesting oxygen saturation was noted to be 90%. With ambulation, the caroline oxygen saturation was 89%. Physiologic tachycardia developed with ambulation. There was evidence of impaired walk distance without significant oxygen desaturation. - Recommendations Recommendations: Although there is no indication for the use of supplemental oxygen at this time, the patient will require close interval follow-up given her low resting oxygen saturation and desaturation to 89% with exertion. 07/07/16 1511 <Electronically signed by Twan Maynard DO> Date Twan Maynard DO CC: Date Dictated: 07/07/16 1509 Date Transcribed: 07/07/16 150 Commercial Marketing Specialist: DO Toni Gray Start: 06-29-2016 End: 07-07-2016 DMB Marta Butts [employer] Work Phone: Start: 06-29-2016 End: 07-07-2016 Follow Up Appt 1 month Marta villa [employer]ER Work Phone: Start: 06-29-2016 End: 07-07-2016 Pulmonary Function Test - complete Marta Butts [employer] Work Phone: Start: 06-29-2016 End: 07-07-2016 Pulmonary stress test/simple Marta Butts [employer]ER Work Phone: Start: 06-29-2016 End: 07-07-2016 DMB Marta Butts [employer] Work Phone: Start: 06-29-2016 End: 07-07-2016 Follow Up Appt 1 month Marta villa [employer]ER Work Phone: Start: 06-29-2016 End: 07-07-2016 Pulmonary Function Test - complete aMrta Butts [employer]ER Work Phone: Start: 06-29-2016 End: 07-07-2016 Pulmonary stress test/simple Marta Butts [employer]ER Work Phone: Start: 06-10-2016 End: 06-10-2016 Chest PA and Lateral Comments: See Note; NOTES: [facility] Imaging Services [address] [place] [id number] [address] 4d Chest PA and Lateral MR#: [id number] Acct: [id number] Name: TEAGAN VAUGHAN Rep #: [id number] : 1950 F 65 From: Lanie Lee MD PCP: Ele Astudillo DO Status: [facility] ER Study: Chest PA and Lateral Date of Exam: 06/10/16 Exam# [id number] Ordering Dr: Cailin Elizabeth MD STUDY: X-RAY CHEST REASON FOR EXAM: Female, 65 years old. Increasing shortness of breath for one week. TECHNIQUE: PA and lateral views of the chest. COMPARISON: September 20, 2013. FINDINGS: Cardiac monitoring leads are present. The lungs are expanded. There are prominent bronchovascular markings present in both lungs. There is no demonstrated pleural abnormality. There is borderline cardiomegaly. There are calcified mediastinal and hilar lymph nodes. There is prominence of the pulmonary hilar arteries without peripheral pulmonary vascular congestion. There is atherosclerotic tortuosity of the aortic arch and descending thoracic aorta. There is demineralization of the osseous structures. There is multilevel thoracic spondylosis. There is no demonstrated abnormality of the visualized soft tissue structures of the upper abdomen. RAD/Chest PA and Lateral IMPRESSION: No radiographic evidence of acute cardiopulmonary disease. Electronically Signed: Lanie Lee MD at 12:44 EDT , Service support , CC: Cailin Elizabeth MD; Ele Astudillo DO Commercial Marketing Specialist: Signed Ele Astudillo Start: 06-01-2016 End: 06-02-2016 Cerv Spine 2 or 3 Views Comments: See Note; NOTES: [facility] Imaging Services [address] [place] [id number] [place] 4d Cerv Spine 2 or 3 Views MR#: [id number] Acct: [id number] Name: TEAGAN VAUGHAN Rep #: [id number] : 1950 F 65 From: Leonardo Canada MD PCP: Ele Astudillo DO Status: REG CLI Study: Cerv Spine 2 or 3 Views Date of Exam: 06/01/16 Exam# [id number] Ordering Dr: Ele Astudillo DO STUDY: X-RAY - CERVICAL SPINE REASON FOR EXAM: Female, 65 years old. NECK PAIN TECHNIQUE: 5 view(s) of the cervical spine were obtained. COMPARISON: None FINDINGS: Normal anterior atlantoaxial articulation. Normal odontoid process. There is straightening of the normal cervical lordosis. There is multi-level endplate spondylosis. There is multi-level degenerative disc disease with multilevel disc space narrowing. The soft tissue structures are unremarkable. RAD/Cerv Spine 2 or 3 Views IMPRESSION: There is multi-level endplate spondylosis. There is multi-level degenerative disc disease with multilevel disc space narrowing. Electronically Signed: Leonardo Canada MD at 1:25 EDT Tel , Service support [phone], CC: Ele Astudillo DO Commercial Marketing Specialist: Signed Ele Astudillo Work Phone: Start: 06-01-2016 End: 06-02-2016 Shoulder min 2 Views Comments: See Note; NOTES: [facility] Imaging Services [address] [place] [id number] [place] [address] 4d Shoulder min 2 Views MR#: [id number] Acct: [id number] Name: TEAGAN VAUGHAN Rep #: [id number] : 1950 F 65 From: Leonardo Canada MD PCP: Ele Astudillo DO Status: REG CLI Study: Shoulder min 2 Views Date of Exam: 06/01/16 Exam# [id number] Ordering Dr: Ele Astudillo DO STUDY: X-RAY - LEFT SHOULDER REASON FOR EXAM: Female, 65 years old. Shoulder pain TECHNIQUE: 2 view(s) of the shoulder. COMPARISON: None. FINDINGS: Normal glenohumeral articulation. There is degenerative arthrosis of the acromioclavicular joint without inferior osseous spur formation. Normal acromion. Normal humeral head and visualized proximal humerus. The soft tissue structures are unremarkable. Normal visualized pulmonary apex. RAD/Shoulder min 2 Views IMPRESSION: There is degenerative arthrosis of the acromioclavicular joint. Electronically Signed: Leonardo Canada MD at 6:17 EDT Tel , Service support [phone], CC: Ele Astudillo DO Commercial Marketing Specialist: Signed Ele Baudilio Work Phone: Start: 06-24-2015 End: 06-24-2015 Spmtry w/vc expiratory humphrey w/wo mxml vol vntj _ Ele Astudillo Work Phone: Plan of Treatment Date Care Activity Detail Author Start: 02-24-2023 Screening for malignant neoplasm of colon COLORECTAL CANCER SCREENING DISCUSSION [facility] Start: 10-30-2022 Influenza vaccination Influenza Vaccine (#1) [facility] Start: 03-01-2022 Advance Directive Discussion Advance Directive Discussion [facility] Start: 03-01-2022 Depression Assessment Depression Assessment [facility] Start: 02-24-2022 Covid-19 Vaccine (6 - Moderna risk series) Covid-19 Vaccine (6 - Moderna risk series) [facility] Start: 02-06-2022 Screening for malignant neoplasm of breast MAMMOGRAM SCREENING DISCUSSION [facility] Start: 01-20-2022 COVID-19 VACCINE (2 - Pfizer series) COVID-19 VACCINE (2 - Pfizer series) [facility] Start: 03-01-2021 ADVANCE DIRECTIVE DISCUSSION ADVANCE DIRECTIVE DISCUSSION [facility] Start: 03-01-2021 DEPRESSION ASSESSMENT DEPRESSION ASSESSMENT [facility] Start: 08-08-2018 Thyrotropin Qn TSH (86878) [facility] Work Phone: Start: 08-08-2018 Comprehensive metabolic panel METABOLIC PANEL, COMPREHENSIVE (06721) [facility] Work Phone: Start: 08-08-2018 Blood count complete auto&auto difrntl wbc CBC W/AUTO DIFF WBC (52560) [facility] Work Phone: Start: 08-08-2018 Procedure Education Eprescribed prescriptions (G8553) [facility] Work Phone: Start: 08-08-2018 Provider Instructions for Treatment [facility] Work Phone: Start: 05-26-2018 Procedure Education Eprescribed prescriptions (G8553) [facility] Work Phone: Start: 05-26-2018 Provider Instructions for Treatment [facility] Work Phone: Start: 04-28-2018 Patient Education [facility] Work Phone: Start: 04-28-2018 Procedure Education Eprescribed prescriptions (G8553) [facility] Work Phone: Start: 04-28-2018 Provider Instructions for Treatment [facility] Work Phone: Start: 01-31-2018 T4 free mass conc T4, FREE (THYROXINE) (37399) [facility] Work Phone: Start: 01-31-2018 T3 free mass conc T3, FREE (TRIDOTHYRONINE) (56484) [facility] Work Phone: Start: 01-31-2018 Thyrotropin Qn TSH (33037) [facility] Work Phone: Start: 01-31-2018 Urnls dip stick/tablet reagent auto microscopy URINALYSIS, W/ MICRO (33936) [facility] Work Phone: Start: 01-31-2018 Urine albumin quantitative MICROALBUMIN: CREATININE RATIO (35451) AND (16570) [facility] Work Phone: Start: 01-31-2018 Comprehensive metabolic panel METABOLIC PANEL, COMPREHENSIVE (10759) [facility] Work Phone: Start: 01-31-2018 Lipid panel LIPID PANEL (51184) [facility] Work Phone: Start: 01-31-2018 Blood count complete auto&auto difrntl wbc CBC W/AUTO DIFF WBC (22997) [facility] Work Phone: Start: 01-31-2018 Provider Instructions for Treatment [facility] Work Phone: Start: 11-09-2017 Procedure Education Eprescribed prescriptions (G8553) [facility] Work Phone: Start: 11-09-2017 Provider Instructions for Treatment Follow up if no improvement or if symptoms worsen [facility] Work Phone: Start: 09-15-2017 Procedure Education Eprescribed prescriptions (G8553) [facility] Work Phone: Start: 09-15-2017 Provider Instructions for Treatment [facility] Work Phone: Start: 08-12-2017 Provider Instructions for Treatment HTN/CAD Red Flags [facility] Work Phone: Start: 06-01-2017 End: 06-01-2017 Appointment Appointment [facility] [place] Work Phone: Start: 12-02-2016 End: 12-02-2016 DMB D[facility] [place] Work Phone: Start: 12-02-2016 End: 12-02-2016 Follow Up Appt 6 months Follow Up Appt 6 months [facility] [place] Work Phone: Start: 12-02-2016 End: 12-02-2016 Appointment Appointment [facility] [place] Work Phone: Start: 11-24-2016 BONE DENSITY BONE DENSITY [facility] Start: 11-24-2016 Bone Density Screening Bone Density Screening [facility] Start: 10-12-2016 Procedure Education Eprescribed prescriptions (G8553) [facility] Work Phone: Start: 10-12-2016 Provider Instructions for Treatment [facility] Work Phone: Start: 10-05-2016 Procedure Education Eprescribed prescriptions (G8553) [facility] Work Phone: Start: 10-05-2016 Provider Instructions for Treatment [facility] Work Phone: Start: 09-28-2016 Patient Education [facility] Work Phone: Start: 09-28-2016 Procedure Education Eprescribed prescriptions (G8553) [facility] Work Phone: Start: 09-28-2016 Provider Instructions for Treatment Follow up in 2 weeks [facility] Work Phone: Start: 09-09-2016 End: 12-02-2016 DMB D[facility] [place] Work Phone: Start: 09-09-2016 End: 12-02-2016 Follow Up Appt 3 months Follow Up Appt 3 months [facility] [place] Work Phone: Start: 09-09-2016 End: 09-09-2016 Appointment Appointment [facility] [place] Work Phone: Start: 09-09-2016 End: 09-09-2016 Appointment Appointment [facility] [place] Work Phone: Start: 09-09-2016 End: 09-09-2016 DMB D[facility] [place] Work Phone: Start: 09-09-2016 End: 09-09-2016 Follow Up Appt 3 months Follow Up Appt 3 months [facility] [place] Work Phone: Start: 08-12-2016 End: 12-02-2016 DMB D[facility] [place] Work Phone: Start: 08-12-2016 End: 08-12-2016 ENT Referral ENT Referral Jared Peñaloza, [address] [place] [address], [phone] [facility] [place] Work Phone: Start: 08-12-2016 End: 12-02-2016 Follow Up Appt 3 months Follow Up Appt 3 months [facility] [place] Work Phone: Start: 08-12-2016 End: 08-12-2016 Appointment Appointment [facility] [place] Work Phone: Start: 08-12-2016 End: 08-12-2016 DMB D[facility] [place] Work Phone: Start: 08-12-2016 End: 08-13-2016 ENT Referral ENT Referral Jared Peñaloza, [address] [place] [address], [phone] [facility] Work Phone: Start: 08-12-2016 End: 08-12-2016 Follow Up Appt 3 months Follow Up Appt 3 months [facility] [place] Work Phone: Start: 07-30-2016 End: 08-03-2016 *[email or web address] Allergens,[id number] *[email or web address] Allergens,[id number] [id number] [facility] [place] Work Phone: Start: 07-30-2016 End: 12-02-2016 [facility] [place] Work Phone: Start: 07-30-2016 End: 12-02-2016 Echo tthrc r-t 2d w/wom-mode compl spec&colr d Echo Complete with Color Flow [facility] Work Phone: Start: 07-30-2016 End: 12-02-2016 Follow Up Appt 6 weeks Follow Up Appt 6 weeks [facility] Work Phone: Start: 07-30-2016 End: 08-03-2016 Globulin *MAXINE Immunoglobulin E (IgE) [facility] [place] Work Phone: Start: 07-30-2016 End: 08-03-2016 IgE mass conc (S) *MAXINE Immunoglobulin E (IgE) [facility] [place] Work Phone: Start: 07-30-2016 End: 07-30-2016 Appointment Appointment [facility] [place] Work Phone: Start: 07-30-2016 End: 08-03-2016 *[email or web address] Allergens,Zone8 [id number] *[email or web address] Allergens,Zone8 [id number] [facility] [place] Work Phone: Start: 07-30-2016 End: 07-30-2016 [facility] [place] Work Phone: Start: 07-30-2016 End: 07-30-2016 Follow Up Appt 6 weeks Follow Up Appt 6 weeks [facility] Phone: Start: 07-30-2016 End: 08-03-2016 Globulin *MAXINE Immunoglobulin E (IgE) [facility] Phone: Start: 07-30-2016 End: 08-03-2016 IgE mass conc (S) *MAXINE Immunoglobulin E (IgE) [facility] Phone: Start: 07-30-2016 End: 07-30-2016 Tte w/doppler, complete Echo Complete with Color Flow [facility] Phone: Start: 07-15-2016 SHINGRIX VACCINE (1 of 2) SHINGRIX VACCINE (1 of 2) [facility] Start: 07-15-2016 Zoster vaccine hzv live for subcutaneous use ZOSTER (SHINGLES) VACCINE (2 of 3) [facility] Start: 06-29-2016 End: 07-07-2016 CHUYITA BOOGIE [facility] Work Phone: Start: 06-29-2016 End: 07-07-2016 Follow Up Appt 1 month Follow Up Appt 1 month [facility] Phone: Start: 06-29-2016 End: 07-07-2016 Pulmonary Function Test - complete Pulmonary Function Test - complete [facility] Phone: Start: 06-29-2016 End: 07-07-2016 Pulmonary stress test/simple Pulmonary stress testing; simple (eg, 6-minute walk) [facility] Phone: Start: 06-29-2016 End: 07-07-2016 CHUYITA DMEddie [facility] Phone: Start: 06-29-2016 End: 07-07-2016 Follow Up Appt 1 month Follow Up Appt 1 month [facility] Phone: Start: 06-29-2016 End: 07-07-2016 Pulmonary Function Test - complete Pulmonary Function Test - complete [facility] Phone: Start: 06-29-2016 End: 07-07-2016 Pulmonary stress test/simple Pulmonary stress testing; simple (eg, 6-minute walk) [facility] [place] Work Phone: Start: 06-08-2016 Procedure Education Eprescribed prescriptions (G8553) [facility] Work Phone: Start: 06-08-2016 Provider Instructions for Treatment Solu Medrol Injection/ Education [facility] Work Phone: Start: 06-05-2016 Provider Instructions for Treatment [facility] Work Phone: Start: 06-04-2016 Provider Instructions for Treatment Follow up tomorrow, as needed [facility] Work Phone: Start: 06-01-2016 Procedure Education Eprescribed prescriptions (G8553) [facility] Work Phone: Start: 06-24-2015 Procedure Education Eprescribed prescriptions (G8553) [facility] Work Phone: Start: 06-24-2015 Provider Instructions for Treatment [facility] Work Phone: Start: 06-12-2015 Provider Instructions for Treatment [facility] Work Phone: Start: 06-12-2015 Hemoglobin A1c/Hemoglobin.total mass fraction (Bld) HgA1C , Office (81438) [facility] Work Phone: Start: 06-12-2015 Glucose mass conc Blood Glucose , Office (93907) [facility] Work Phone: Start: 06-05-2015 Provider Instructions for Treatment [facility] Work Phone: Start: 02-06-2015 Patient Education Arthritis Overview *: inflammation [facility] Work Phone: Start: 02-06-2015 Procedure Education Eprescribed prescriptions (G8553) [facility] Work Phone: Start: 12-12-2014 Provider Instructions for Treatment Follow up in 2 weeks [facility] Work Phone: Start: 06-25-2014 Provider Instructions for Treatment [facility] Work Phone: Start: 12-14-2013 Provider Instructions for Treatment [facility] Work Phone: Start: 11-16-2013 Provider Instructions for Treatment Follow up in 2 weeks [facility] Work Phone: Start: 11-03-2013 Patient Education Obesity *: cardiovascular health [facility] Work Phone: Start: 11-03-2013 Provider Instructions for Treatment Follow up in 2 weeks [facility] Work Phone: Start: 11-03-2013 Rheumatoid factor quantitative RHEUMATOID FACTOR-QUANT (00292) test code [id number] [facility] Work Phone: Start: 11-03-2013 Extractable nuclear antigen antibody any method [facility] Work Phone: Start: 11-03-2013 Protein mass conc [facility] Work Phone: Start: 11-03-2013 Dna antibody holy cross/double stranded DNA ANTIBODY-NATV/DBL ST (29919) test code [id number] [facility] Work Phone: Start: 10-20-2013 Patient Education Allergies: Controlling Your Environment: asthma [facility] Work Phone: Start: 10-20-2013 Procedure Education Eprescribed prescriptions (G8553) [facility] Work Phone: Start: 10-20-2013 Provider Instructions for Treatment [facility] Work Phone: Start: 09-20-2013 Provider Instructions for Treatment Follow up in 1 month: reassess breathing, wt loss adn consider adipex// easy bruising [facility] Work Phone: Start: 08-30-2013 Procedure Education Eprescribed prescriptions (G8553) [facility] Work Phone: Start: 11-11-2012 Provider Instructions for Treatment [facility] Work Phone: Start: 11-11-2012 T3 free mass conc T3, FREE (TRIDOTHYRONINE) (53513) [facility] Work Phone: Start: 11-11-2012 T4 free mass conc T4, FREE (THYROXINE) (57257) [facility] Work Phone: Start: 11-11-2012 Thyrotropin Qn TSH (11255) [facility] Work Phone: Start: 11-11-2012 Lipid panel LIPID PANEL (57134) [facility] Work Phone: Start: 10-06-2012 Patient Education Obesity *: cardiovascular health [facility] Work Phone: Start: 10-06-2012 Provider Instructions for Treatment [facility] Work Phone: Start: 09-23-2012 Patient Education Obesity *: nutrition [facility] Work Phone: Start: 09-23-2012 Provider Instructions for Treatment Follow up in 2 weeks [facility] Work Phone: Start: 09-07-2012 Patient Education Obesity *: body fat percent [facility] Work Phone: Start: 09-07-2012 Provider Instructions for Treatment Follow up in 2 weeks [facility] Work Phone: Start: 08-24-2012 Patient Education Obesity *: cardiovascular health [facility] Work Phone: Start: 08-24-2012 Provider Instructions for Treatment [facility] Work Phone: Start: 08-10-2012 Patient Education Allergies: Controlling Your Environment: allergen [facility] Work Phone: Start: 08-10-2012 Provider Instructions for Treatment Follow up in 2 weeks [facility] Work Phone: Start: 08-10-2012 Lipid panel LIPID PANEL (82270) [facility] Work Phone: Start: 07-15-2012 Patient Education Asthma: asthma [facility] Work Phone: Start: 07-15-2012 Provider Instructions for Treatment [facility] Work Phone: Start: 04-08-2012 Patient Education Flu Shots (Influenza Vaccine): prevention [facility] Work Phone: Start: 04-08-2012 Provider Instructions for Treatment thumb injection [facility] Work Phone: Start: 02-17-2012 Provider Instructions for Treatment [facility] Work Phone: Start: 08-06-2011 Provider Instructions for Treatment Lateral Epicondyle injection [facility] Work Phone: Start: 02-13-2011 Provider Instructions for Treatment Lateral Epicondyle injection [facility] Work Phone: Start: 10-31-2010 Provider Instructions for Treatment Lateral Epicondyle injection [facility] Work Phone: Start: 06-27-2010 Provider Instructions for Treatment Lateral Epicondyle injection [facility] Work Phone: Start: 05-13-2010 Fibrin dgradj products d-dimer quantitative D-Dimer (27591) [facility] Work Phone: Immunizations Immunization Date Immunization Notes Care Provider Fa cility 01-02-2022 influenza virus vacc ine, unspecified formulation Allyssa Singletary EDITOR INDEX.[employer] Work Phone: [facility] 12-26-2018 pneumococcal polysaccharide vaccine, 23 valent Allyssa Singletary EDITOR INDEX.[employer] Work Phone: [facility] 12-26-2018 Seasonal trivalent influenza vaccine, adjuvanted, preservative free Allyssa Singletary EDITOR INDEX.[employer] Work Phone: [facility] 12-15-2016 pneumococcal conjuga te vaccine, 13 valent Allyssa Singletary EDITOR INDEX.SA[employer]EDER Work Phone: [facility] 05-20-2016 zoster vaccine, live Duncan n Hayder EDITOR INDEX.SAW FEEDER Work Phone: [facility] 05-20-2016 zoster vaccine, unspecified formulation Andrea Laura MD Work Phone: [facility] Payers Date Payer Category Payer Unknown 2018 Medicare [id number] 2018 Private Health Insurance [facility] [id number] 2018 Private Health Insurance [employer] A [employer]NA MEDICARE SUPPLEMENT [id number] 2018-Present [phone] [address] [address] [place] [address] Indemnity [id number] 2016 Medicare [id number] 2016 Medicare [id number] 2005 Unknown [id number] 1950 Unknown [id number] 1950 Unknown [id number] 1950 Unknown [id number] 1950 Unknown [id number] Social History Date Type Detail Facility Start: 02-06-2020 End: 12-03-2022 Caffeine Use Former smoker [facility] Work Phone: Clinical Notes 02-17-2022 to 12-03-2022 [facility] 10[facility]17 [facility] 11:00 AM [place] [facility] 11:00 AM EST Note Date & Type Note Facility 12-03-2022 Note HNO ID: [id number] Author: Ivis Pascual RT(R) Service: Radiology Author Type: Technologist Type: Progress Notes Filed: 12/03/2022 11:11 AM Note Text: Radiology Service Progress Note PATIENT NAME: Teagan Vaughan DATE OF SERVICE: December 03, 2022 TIME: 11:05 AM PATIENT IDENTITY VERIFICATION COMPLETED USING TWO (2) IDENTIFIERS: Name and Date of confirmed by patient verbally. FALL SCREENING: Has the patient had 2 falls in the last year or 1 fall with injury or currently using an Ambulatory Assistive Device (Walker, Cane, Wheelchair, Crutches, etc.)? No PATIENT GENDER DATA: Female. status: : No status: NO. PATIENT RELEVANT IMPLANT DATA REVIEWED: Not Applicable RADIOLOGY DEPARTMENT: General X-ray: Exam(s) Completed: Chest X-Ray PERIPHERAL IV DATA: Not applicable SIGNED BY: RT Renetta(R) December 03, 2022 11:05 AM [facility] 12-03-2022 Note HNO ID: [id number] Author: Allyssa Singletary APRN.[employer]EDER Service: ? Author Type: Nurse Practitioner Type: Progress Notes Filed: 12/03/2022 11:49 AM Note Text: Subjective HPI HPI Teagan Vaughan is a 72 year old female who presents today for CC of cough, sob, congestion. This started 5 days ago. Has tried otc medication for relief. Symptoms are worsened by nothing. Risk factors hx of asthma and lung cancer. .Patient presents with: Cough: Cough and congestion days x5 PAST MEDICAL HISTORY Diagnosis Date Asthma PAST SURGICAL HISTORY Procedure Laterality Date APPENDECTOMY PAST SURGICAL HISTORY OF TMJ TOTAL ABDOMINAL HYSTERECT W/WO RMVL TUBE OVARY ALLERGIES Seasonal Allergies MEDICATIONS gabapentin (NEURONTIN) 300 mg capsule folic acid 1 mg tablet Take 2 mg by mouth once daily. hydrOXYchloroQUINE (PLAQUENIL) 200 mg tablet Take 200 mg by mouth twice daily. methotrexate 2.5 mg tablet Take 6 tablets by mouth one time a week. montelukast (SINGULAIR) 10 mg tablet Take 10 mg by mouth daily at bedtime. lansoprazole (PREVACID) 15 mg capsule Take 15 mg by mouth once daily. metoprolol tartrate, short acting, (LOPRESSOR) 50 mg tablet Take 50 mg by mouth twice daily. ACLIDINIUM BROMIDE (TUDORZA PRESSAIR INHALATION) Inhale as instructed. albuterol (PROVENTIL) 2.5 mg /3 mL (0.083 %) nebulizer solution Use 3 mL via nebulizer every 6 hours as needed for Wheezing/Shortness of Breath. 1 vial contains 3 ml. Nebulizer 1 Units every 6 hours as needed (wheezing or SOB). NEBULIZER FOR HOME USE. DX: acute bronchitis, asthma budesonide-formoterol (SYMBICORT) 160-4.5 mcg/actuation inhaler Inhale 2 Puffs as instructed twice daily. levothyroxine (SYNTHROID) 25 mcg tablet Take 25 mcg by mouth daily before breakfast. albuterol HFA (VENTOLIN HFA) 90 mcg/Actuation INHALATION inhaler Inhale 2 Puffs as instructed every 6 hours as needed. FAMILY HISTORY Problem Relation Age of Onset Cancer Mother ovarian COPD Father Breast Cancer Maternal Grandmother Social History Tobacco Use Smoking status: Former Types: Cigarettes Smokeless tobacco: Never Substance Use Topics Alcohol use: No Drug use: No ROS Objective Blood pressure 126/82, pulse 82, temperature 36.6 ?C (97.8 ?F), resp. rate 16, weight 109.9 kg (242 lb 3.2 oz), SpO2 95 %. Physical Exam Constitutional: General: She is not in acute distress. Appearance: She is not toxic-appearing or diaphoretic. HENT: Head: Normocephalic and atraumatic. Cardiovascular: Rate and Rhythm: Normal rate and regular rhythm. Heart sounds: Normal heart sounds, S1 normal and S2 normal. Pulmonary: Effort: Pulmonary effort is normal. Breath sounds: Wheezing (scattered bilat) and rhonchi (scattered bilat) present. No decreased breath sounds or rales. Lymphadenopathy: Cervical: No cervical adenopathy. Right cervical: No superficial cervical adenopathy. Left cervical: No superficial cervical adenopathy. Neurological: Mental Status: She is alert and oriented to person, place, and time. Gait: Gait is intact. ASSESSMENT/PLAN: 1. Sinobronchitis - ICD9: 473.9, 490, ICD10: J32.9, J40 (primary diagnosis) Start prednisone today, if s/s persist or worsen fill/take antibiotic prescription. - Supportive care with plenty of fluids, rest, and analgesia prn. - Follow up in 3-5 days if symptoms persist or worsen. -If you experience chest pain/shortness of breath go to ER -declines covid test today, will test at home. If positive call pcp regarding treatment. - DOXYCYCLINE HYCLATE 100 MG TABLET 2. Rhonchi at both lung bases - ICD9: 786.7, ICD10: R09.89 - XR CHEST 2V FRONTAL/LAT IMPRESSION: No acute radiographic abnormality. Dictated by : MD Allyssa ROBINS APRN.[employer]ER [facility] 12-03-2022 Instructions Allyssa Singletary APRN.[facility] - 12/03/2022 11:35 AM EDT ASSESSMENT/PLAN: 1. Sinobronchitis - ICD9: 473.9, 490, ICD10: J32.9, J40 (primary diagnosis) Start prednisone today, if s/s persist or worsen fill/take antibiotic prescription. - Supportive care with plenty of fluids, rest, and analgesia prn. - Follow up in 3-5 days if symptoms persist or worsen. -If you experience chest pain/shortness of breath go to ER - DOXYCYCLINE HYCLATE 100 MG TABLET documented in this encounter [facility] 12-03-2022 History of Present illness Narrative Subjective HPI HPI Teagan Vaughan is a 72 year old female who presents today for CC of cough, sob, congestion. This started 5 days ago. Has tried otc medication for relief. Symptoms are worsened by nothing. Risk factors hx of asthma and lung cancer. .Patient presents with: Cough: Cough and congestion days x5 PAST MEDICAL HISTORY Diagnosis Date Asthma PAST SURGICAL HISTORY Procedure Laterality Date APPENDECTOMY PAST SURGICAL HISTORY OF TMJ TOTAL ABDOMINAL HYSTERECT W/WO RMVL TUBE OVARY ALLERGIES Seasonal Allergies MEDICATIONS gabapentin (NEURONTIN) 300 mg capsule folic acid 1 mg tablet Take 2 mg by mouth once daily. hydrOXYchloroQUINE (PLAQUENIL) 200 mg tablet Take 200 mg by mouth twice daily. methotrexate 2.5 mg tablet Take 6 tablets by mouth one time a week. montelukast (SINGULAIR) 10 mg tablet Take 10 mg by mouth daily at bedtime. lansoprazole (PREVACID) 15 mg capsule Take 15 mg by mouth once daily. metoprolol tartrate, short acting, (LOPRESSOR) 50 mg tablet Take 50 mg by mouth twice daily. ACLIDINIUM BROMIDE (TUDORZA PRESSAIR INHALATION) Inhale as instructed. albuterol (PROVENTIL) 2.5 mg /3 mL (0.083 %) nebulizer solution Use 3 mL via nebulizer every 6 hours as needed for Wheezing/Shortness of Breath. 1 vial contains 3 ml. Nebulizer 1 Units every 6 hours as needed (wheezing or SOB). NEBULIZER FOR HOME USE. DX: acute bronchitis, asthma budesonide-formoterol (SYMBICORT) 160-4.5 mcg/actuation inhaler Inhale 2 Puffs as instructed twice daily. levothyroxine (SYNTHROID) 25 mcg tablet Take 25 mcg by mouth daily before breakfast. albuterol HFA (VENTOLIN HFA) 90 mcg/Actuation INHALATION inhaler Inhale 2 Puffs as instructed every 6 hours as needed. FAMILY HISTORY Problem Relation Age of Onset Cancer Mother ovarian COPD Father Breast Cancer Maternal Grandmother Social History Tobacco Use Smoking status: Former Types: Cigarettes Smokeless tobacco: Never Substance Use Topics Alcohol use: No Drug use: No ROS Objective Blood pressure 126/82, pulse 82, temperature 36.6 C (97.8 F), resp. rate 16, weight 109.9 kg (242 lb 3.2 oz), SpO2 95 %. Physical Exam Constitutional: General: She is not in acute distress. Appearance: She is not toxic-appearing or diaphoretic. HENT: Head: Normocephalic and atraumatic. Cardiovascular: Rate and Rhythm: Normal rate and regular rhythm. Heart sounds: Normal heart sounds, S1 normal and S2 normal. Pulmonary: Effort: Pulmonary effort is normal. Breath sounds: Wheezing (scattered bilat) and rhonchi (scattered bilat) present. No decreased breath sounds or rales. Lymphadenopathy: Cervical: No cervical adenopathy. Right cervical: No superficial cervical adenopathy. Left cervical: No superficial cervical adenopathy. Neurological: Mental Status: She is alert and oriented to person, place, and time. Gait: Gait is intact. ASSESSMENT/PLAN: 1. Sinobronchitis - ICD9: 473.9, 490, ICD10: J32.9, J40 (primary diagnosis) Start prednisone today, if s/s persist or worsen fill/take antibiotic prescription. - Supportive care with plenty of fluids, rest, and analgesia prn. - Follow up in 3-5 days if symptoms persist or worsen. -If you experience chest pain/shortness of breath go to ER -declines covid test today, will test at home. If positive call pcp regarding treatment. - DOXYCYCLINE HYCLATE 100 MG TABLET 2. Rhonchi at both lung bases - ICD9: 786.7, ICD10: R09.89 - XR CHEST 2V FRONTAL/LAT IMPRESSION: No acute radiographic abnormality. Dictated by : MD Allyssa ROBINS APRN.[employer] documented in this encounter [facility] 04-22-2022 History and physical note Images from the original note were not included. History and Physical Patient: Teagan Vaughan Date: 04/22/2022 11:27 AM Attending Physician: Andrea Laura MD Chief Complaint: left lower lobe NSCLC HPI: Teagan Vaughan is a 71 y.o. female never smoker with a past medical history significant for COPD who is referred to our office by Dr. Jose ([place]) for a new diagnosis of left lower lobe NSCLC. CT chest for NSCLC screening on 01/07/22 demonstrated an enlarging nodule in the superior segment of the left lower lobe. CT guided biopsy on 03/16/22 demonstrated NSCLC favor adenocarcinoma. PET scan on 03/25/22 demonstrates SUV 5.6 in the 1.5 cm left lower lobe nodule. PFTs on 04/14/22 demonstrates FEV1 46% and DLCO 62%. Brain MRI for staging on 04/15/22 was negative. She was offered SBRT locally and presents to our office today for a surgical opinion. She notes she is feeling well and denies fatigue, cough, hemoptysis, or weight loss. She does have shortness of breath with exertion that has improved recently with switching to Trelegy. She also notes chronic sciatica that limits her activity. She denies history of UT, stroke, blood thinners, chest surgery, pneumothorax, or broken ribs. Past Medical/Surgical History Past Medical History: Diagnosis Date Arthritis Asthma COPD (chronic obstructive pulmonary disease) Depression Diabetes mellitus Essential hypertension, benign GERD (gastroesophageal reflux disease) Hypothyroidism Migraine NSCLC of left lung Pneumonia RA (rheumatoid arthritis) Past Surgical History: Procedure Laterality Date BACK SURGERY 10/2021 APPENDECTOMY HAND SURGERY thumb HYSTERECTOMY OTHER SURGICAL CT guided lung biopsy Oncology History Malignant neoplasm of lower lobe of left lung 03/16/[address] guided biopsy, left lower lobe nodule: NSCLC, favor adenocarcinoma She is not on home oxygen She does not have a history of stroke. Family History Family History Problem Relation Age of Onset Ovarian Cancer Mother Cancer- Other Brother brain cancer Social History Social History Tobacco Use Smoking status: Former Years: 40.00 Types: Cigarettes Quit date: 2008 Years since quittin.1 Passive exposure: Past Smokeless tobacco: Never Substance Use Topics Alcohol use: Never She does not have a history of daily use of narcotics for >30 days prior to this visit Medications Current Outpatient Medications Medication Sig Albuterol 108 (90 Base) MCG/ACT Aero Soln inhaler Inhale 1 puff every 4 hours as needed for Shortness of Breath. Dulaglutide 0.75 MG/0.5ML Solution Pen-injector injection Inject under the skin once a week. [id number]-lqaahdpvl-Nqtenz 100-62.5-25 MCG/ACT Aerosol Powder, breath activated inhaler Inhale 1 puff daily. Folic Acid 20 MG capsule Take 2 mg by mouth daily. Hydroxychloroquine 200 MG tablet Take 2 tablets by mouth daily. lansoprazole [address] capsule Take 1 capsule by mouth every other day. Levothyroxine 25 MCG tablet Take 1 tablet by mouth every morning before breakfast. Methotrexate Sodium 5 MG tablet Take by mouth once a week. Metoprolol 25 MG tab regular release Take 1 tablet by mouth 2 times daily. Omalizumab 150 MG/ML Solution Prefilled Syringe Inject 1 mL under the skin once as directed. Monthly pregabalin 75 MG capsule Take 1 capsule by mouth 2 times daily. rizatriptan 10 MG Tab Dispersible tablet Take 1 tablet by mouth. May repeat in 2 hours if needed, max daily dose 30 mg Zolpidem 5 MG tablet Take 1 tablet by mouth At bedtime as needed for Sleep. She is on chronic immunosuppressive therapy/corticosteroids >10 days at the time of this visit (methotrexate) She is not on chronic anticoagulation >10 days at the time of this visit Allergies/Immunizations Allergies: Patient has no known allergies. Immunizations: Immunization History Administered Date(s) Administered COVID-19 Vaccine, mRNA, Pfizer, Bivalent Booster 0.3 mL 12/30/2021 Review of Systems At the time of the visit patient reports improved shortness of breath on exertion and chronic sciatica. All other systems queried and are negative. OBJECTIVE: Physical Exam Blood pressure 183/87, pulse 97, temperature 98.2 F (36.8 C), temperature source Oral, resp. rate 18, height 1.651 m (5' 5 ), weight 109 kg (240 lb 3.2 oz), SpO2 95 %. on RA Constitutional: she is alert, oriented, well-developed, well-nourished, and in no acute distress. HEENT: Oropharynx is clear and moist. Extraocular motions are normal. Neck: Neck supple. No tracheal deviation present. Cardiovascular: Normal rate and regular rhythm. No murmur heard. Pulmonary/Chest: Breathing non-labored. Lung sounds normal without wheezes. She exhibits no crepitus. Abdomen: Abdomen soft, non-tender, non-distended. Bowel sounds present. Musculoskeletal: She exhibits no edema. Lymphadenopathy: She has no cervical adenopathy. Neurological: She is alert and oriented. Skin: No rash noted. ECO Malnutrition Screening Tool (MST) Score: 0 Frailty Assessment Screening Score: 2 Imaging/Procedures/Results Review: Personal review completed of: 01/07/23 CT chest: 03/16/22 pathology: 03/25/22 PET: 04/14/22 PFTs: FEV1 1.15/46%, DLCO 15.6/62% 04/15/22 brain MRI: ASSESSMENT/PLAN: Problem Malignant Neoplasm of Lower Lobe of Left Lung Teagan Vaughan is a 71 y.o. female former smoker with a new diagnosis of cT1bN0 left lower lobe NSCLC. Her preoperative evaluation/staging workup is complete aside from a stress test. We have offered her a robotic assisted thoracoscopic left lower lobe superior segmentectomy. She would like some time to consider SBRT vs surgery and will contact our office if she would like to proceed with surgery. If she does want to proceed, she would need a nuclear stress test (on beta taylor and mobility limited by sciatica). The patient was seen, images reviewed, and plan of care discussed with Andrea Laura MD. DARWIN Antonio #[id number] Associated attestation - Andrea Laura MD - 04/27/2022 12:12 AM EST Thoracic Surgery Attending I saw and examined Teagan Vaughan today with my RAHUL, DARWIN Antonio. Teagan Vaughan is a 71 y.o. female never smoker with history of COPD presents with a left lower lobe NSCLC. A CT chest demonstrated suspicious left lower lobe lung nodule. A CT guided biopsy was positive for NSCLC- favor Adenocarcinoma. A PET CT and brain MRI were negative for metastatic disease. She was referred for surgical evaluation. I agree with the history of present illness, past medical history, family history, social history, medication list, allergies listed, and current complaints. I have personally reviewed all labs and radiographs as well as medical records and I confirm the findings noted above. I agree with the assessment and plan as noted above. The imaging reviewed today includes: CT scan of the Chest 01-17-[address] scan 03-25-2022 3. Pulmonary Function Tests Assessment and Plan: The patient presents with a stage IB left lower lobe lung carcinoma. She had borderline lung function. At this time, I feel we should proceed with left robotic assisted superior segmentectomy. I discussed with the patient that risks of luing surgery may include bleeding, infection, pneumonia, heart complications, blood clots, respiratory failure, post operative neuropathic pain, air leak, chyle leak, and . The patient is aware of these risks and has agreed to proceed with this major elective surgery. Surgical consent was signed today. The plan was developed mutually at the time of the clinic visit. I provided a substantive portion of the care for this patient. I personally performed all aspects of the medical decision making for this encounter. I have reviewed and verified this documentation and it accurately reflects our care. Andrea Laura MD [facility] 04-22-2022 History and physical note Images from the original note were not included. History and Physical Patient: Teagan Vaughan Date: 04/22/2022 11:27 AM Attending Physician: Andrea Laura MD Chief Complaint: left lower lobe NSCLC HPI: Teagan Vaughan is a 71 y.o. female never smoker with a past medical history significant for COPD who is referred to our office by Dr. Jose ([place]) for a new diagnosis of left lower lobe NSCLC. CT chest for NSCLC screening on 01/07/22 demonstrated an enlarging nodule in the superior segment of the left lower lobe. CT guided biopsy on 03/16/22 demonstrated NSCLC favor adenocarcinoma. PET scan on 03/25/22 demonstrates SUV 5.6 in the 1.5 cm left lower lobe nodule. PFTs on 04/14/22 demonstrates FEV1 46% and DLCO 62%. Brain MRI for staging on 04/15/22 was negative. She was offered SBRT locally and presents to our office today for a surgical opinion. She notes she is feeling well and denies fatigue, cough, hemoptysis, or weight loss. She does have shortness of breath with exertion that has improved recently with switching to Trelegy. She also notes chronic sciatica that limits her activity. She denies history of UT, stroke, blood thinners, chest surgery, pneumothorax, or broken ribs. Past Medical/Surgical History Past Medical History: Diagnosis Date Arthritis Asthma COPD (chronic obstructive pulmonary disease) Depression Diabetes mellitus Essential hypertension, benign GERD (gastroesophageal reflux disease) Hypothyroidism Migraine NSCLC of left lung Pneumonia RA (rheumatoid arthritis) Past Surgical History: Procedure Laterality Date BACK SURGERY 10/2021 APPENDECTOMY HAND SURGERY thumb HYSTERECTOMY OTHER SURGICAL CT guided lung biopsy Oncology History Malignant neoplasm of lower lobe of left lung 03/16/[address] guided biopsy, left lower lobe nodule: NSCLC, favor adenocarcinoma She is not on home oxygen She does not have a history of stroke. Family History Family History Problem Relation Age of Onset Ovarian Cancer Mother Cancer- Other Brother brain cancer Social History Social History Tobacco Use Smoking status: Former Years: 40.00 Types: Cigarettes Quit date: 2008 Years since quittin.1 Passive exposure: Past Smokeless tobacco: Never Substance Use Topics Alcohol use: Never She does not have a history of daily use of narcotics for >30 days prior to this visit Medications Current Outpatient Medications Medication Sig Albuterol 108 (90 Base) MCG/ACT Aero Soln inhaler Inhale 1 puff every 4 hours as needed for Shortness of Breath. Dulaglutide 0.75 MG/0.5ML Solution Pen-injector injection Inject under the skin once a week. [id number]-[id number]-Ticsvx 100-62.5-25 MCG/ACT Aerosol Powder, breath activated inhaler Inhale 1 puff daily. Folic Acid 20 MG capsule Take 2 mg by mouth daily. Hydroxychloroquine 200 MG tablet Take 2 tablets by mouth daily. lansoprazole [address] capsule Take 1 capsule by mouth every other day. Levothyroxine 25 MCG tablet Take 1 tablet by mouth every morning before breakfast. Methotrexate Sodium 5 MG tablet Take by mouth once a week. Metoprolol 25 MG tab regular release Take 1 tablet by mouth 2 times daily. Omalizumab 150 MG/ML Solution Prefilled Syringe Inject 1 mL under the skin once as directed. Monthly pregabalin 75 MG capsule Take 1 capsule by mouth 2 times daily. rizatriptan 10 MG Tab Dispersible tablet Take 1 tablet by mouth. May repeat in 2 hours if needed, max daily dose 30 mg Zolpidem 5 MG tablet Take 1 tablet by mouth At bedtime as needed for Sleep. She is on chronic immunosuppressive therapy/corticosteroids >10 days at the time of this visit (methotrexate) She is not on chronic anticoagulation >10 days at the time of this visit Allergies/Immunizations Allergies: Patient has no known allergies. Immunizations: Immunization History Administered Date(s) Administered COVID-19 Vaccine, mRNA, Pfizer, Bivalent Booster 0.3 mL 12/30/2021 Review of Systems At the time of the visit patient reports improved shortness of breath on exertion and chronic sciatica. All other systems queried and are negative. OBJECTIVE: Physical Exam Blood pressure 183/87, pulse 97, temperature 98.2 F (36.8 C), temperature source Oral, resp. rate 18, height 1.651 m (5' 5 ), weight 109 kg (240 lb 3.2 oz), SpO2 95 %. on RA Constitutional: she is alert, oriented, well-developed, well-nourished, and in no acute distress. HEENT: Oropharynx is clear and moist. Extraocular motions are normal. Neck: Neck supple. No tracheal deviation present. Cardiovascular: Normal rate and regular rhythm. No murmur heard. Pulmonary/Chest: Breathing non-labored. Lung sounds normal without wheezes. She exhibits no crepitus. Abdomen: Abdomen soft, non-tender, non-distended. Bowel sounds present. Musculoskeletal: She exhibits no edema. Lymphadenopathy: She has no cervical adenopathy. Neurological: She is alert and oriented. Skin: No rash noted. ECO Malnutrition Screening Tool (MST) Score: 0 Frailty Assessment Screening Score: 2 Imaging/Procedures/Results Review: Personal review completed of: 01/07/23 CT chest: 03/16/22 pathology: 03/25/22 PET: 04/14/22 PFTs: FEV1 1.15/46%, DLCO 15.6/62% 04/15/22 brain MRI: ASSESSMENT/PLAN: Problem Malignant Neoplasm of Lower Lobe of Left Lung Teagan Vaughan is a 71 y.o. female former smoker with a new diagnosis of cT1bN0 left lower lobe NSCLC. Her preoperative evaluation/staging workup is complete aside from a stress test. We have offered her a robotic assisted thoracoscopic left lower lobe superior segmentectomy. She would like some time to consider SBRT vs surgery and will contact our office if she would like to proceed with surgery. If she does want to proceed, she would need a nuclear stress test (on beta taylor and mobility limited by sciatica). The patient was seen, images reviewed, and plan of care discussed with Andrea Laura MD. Renuka Meadows APRN-SAW FEEDER #[id number] Associated attestation - Andrea Laura MD - 04/27/2022 12:12 AM EST Thoracic Surgery Attending I saw and examined Teagan Vaughan today with my RAHUL, DARWIN Antonio. Teagan Vaughan is a 71 y.o. female never smoker with history of COPD presents with a left lower lobe NSCLC. A CT chest demonstrated suspicious left lower lobe lung nodule. A CT guided biopsy was positive for NSCLC- favor Adenocarcinoma. A PET CT and brain MRI were negative for metastatic disease. She was referred for surgical evaluation. I agree with the history of present illness, past medical history, family history, social history, medication list, allergies listed, and current complaints. I have personally reviewed all labs and radiographs as well as medical records and I confirm the findings noted above. I agree with the assessment and plan as noted above. The imaging reviewed today includes: CT scan of the Chest 01-17-[address] scan 03-25-2022 3. Pulmonary Function Tests Assessment and Plan: The patient presents with a stage IB left lower lobe lung carcinoma. She had borderline lung function. At this time, I feel we should proceed with left robotic assisted superior segmentectomy. I discussed with the patient that risks of luing surgery may include bleeding, infection, pneumonia, heart complications, blood clots, respiratory failure, post operative neuropathic pain, air leak, chyle leak, and . The patient is aware of these risks and has agreed to proceed with this major elective surgery. Surgical consent was signed today. The plan was developed mutually at the time of the clinic visit. I provided a substantive portion of the care for this patient. I personally performed all aspects of the medical decision making for this encounter. I have reviewed and verified this documentation and it accurately reflects our care. Andrea Laura MD documented in this encounter [facility] 02-17-2022 Note HNO ID: [id number] Author: RT Diego(R) Service: ? Author Type: Device Engineer Type: Progress Notes Filed: 02/17/2022 11:23 AM Note Text: Radiology Service Progress Note PATIENT NAME: Teagan Vaughan DATE OF SERVICE: February 17, 2022 TIME: 11:15 AM PATIENT IDENTITY VERIFICATION COMPLETED USING TWO (2) IDENTIFIERS: Name and Date of confirmed by patient verbally. FALL SCREENING: Has the patient had 2 falls in the last year or 1 fall with injury or currently using an Ambulatory Assistive Device (Walker, Cane, Wheelchair, Crutches, etc.)? No PATIENT GENDER DATA: Female. status: : No status: NO. PATIENT RELEVANT IMPLANT DATA REVIEWED: Yes RADIOLOGY DEPARTMENT: General X-ray: Exam(s) Completed: Chest X-Ray PERIPHERAL IV DATA: Not applicable SIGNED BY: RT Diego(R) February 17, 2022 11:15 AM [facility] 02-17-2022 Note HNO ID: [id number] Author: Allyssa Singletary APRN.SAW FEEDER Service: ? Author Type: Nurse Practitioner Type: Progress Notes Filed: 02/17/2022 12:23 PM Note Text: Subjective HPI HPI Teagan Vaughan is a 71 year old female who presents today for CC of cough, congestion, sob. This started 9 days. Has tried otc medication for relief. Symptoms are worsened by nothing. Risk factors hx of copd. Hx of lung nodule, recent lung ct pending currently. .Patient presents with: Sinus Problem: sinus pressure, drainage, cough x 9 days PAST MEDICAL HISTORY Diagnosis Date Asthma PAST SURGICAL HISTORY Procedure Laterality Date APPENDECTOMY PAST SURGICAL HISTORY OF TMJ TOTAL ABDOMINAL HYSTERECT W/WO RMVL TUBE OVARY ALLERGIES Seasonal Allergies MEDICATIONS folic acid 1 mg tablet Take 2 mg by mouth once daily. hydrOXYchloroQUINE (PLAQUENIL) 200 mg tablet Take 200 mg by mouth twice daily. methotrexate 2.5 mg tablet Take 6 tablets by mouth one time a week. montelukast (SINGULAIR) 10 mg tablet Take 10 mg by mouth daily at bedtime. lansoprazole (PREVACID) 15 mg capsule Take 15 mg by mouth once daily. metoprolol tartrate, short acting, (LOPRESSOR) 50 mg tablet Take 50 mg by mouth twice daily. ACLIDINIUM BROMIDE (TUDORZA PRESSAIR INHALATION) Inhale as instructed. Nebulizer 1 Units every 6 hours as needed (wheezing or SOB). NEBULIZER FOR HOME USE. DX: acute bronchitis, asthma budesonide-formoterol (SYMBICORT) 160-4.5 mcg/actuation inhaler Inhale 2 Puffs as instructed twice daily. levothyroxine (SYNTHROID) 25 mcg tablet Take 25 mcg by mouth daily before breakfast. albuterol HFA (VENTOLIN HFA) 90 mcg/Actuation INHALATION inhaler Inhale 2 Puffs as instructed every 6 hours as needed. gabapentin (NEURONTIN) 300 mg capsule take 1 capsule by mouth at bedtime for 3 days then 1 capsule by m... (REFER TO PRESCRIPTION NOTES). (Patient not taking: Reported on 02/17/2022) albuterol (PROVENTIL) 2.5 mg /3 mL (0.083 %) nebulizer solution Use 3 mL via nebulizer every 6 hours as needed for Wheezing/Shortness of Breath. 1 vial contains 3 ml. (Patient not taking: Reported on 04/01/2019 ) FAMILY HISTORY Problem Relation Age of Onset Cancer Mother ovarian COPD Father Breast Cancer Maternal Grandmother Social History Tobacco Use Smoking status: Former Types: Cigarettes Smokeless tobacco: Never Substance Use Topics Alcohol use: No Drug use: No Review of Systems Constitutional: Negative for fever. HENT: Positive for congestion. Negative for ear pain, nosebleeds and sore throat. Respiratory: Positive for cough and shortness of breath. Negative for wheezing. Cardiovascular: Negative for chest pain. Musculoskeletal: Negative for neck pain. Skin: Negative for itching and rash. Objective Blood pressure 172/88, pulse 96, temperature 36.3 ?C (97.4 ?F), resp. rate 20, weight 110.7 kg (244 lb), SpO2 92 %. Bp recheck 140/90 manual by provider. Physical Exam Constitutional: General: She is not in acute distress. Appearance: She is not toxic-appearing or diaphoretic. HENT: Head: Normocephalic and atraumatic. Right Ear: Hearing, tympanic membrane, ear canal and external ear normal. Left Ear: Hearing, tympanic membrane, ear canal and external ear normal. Nose: Nose normal. Mouth/Throat: Pharynx: Uvula midline. No pharyngeal swelling, oropharyngeal exudate, posterior oropharyngeal erythema or uvula swelling. Eyes: General: Lids are normal. No scleral icterus. Right eye: No discharge. Left eye: No discharge. Conjunctiva/sclera: Conjunctivae normal. Pupils: Pupils are equal, round, and reactive to light. Neck: Trachea: Trachea normal. Cardiovascular: Rate and Rhythm: Normal rate and regular rhythm. Heart sounds: Normal heart sounds. Pulmonary: Effort: Pulmonary effort is normal. Breath sounds: Wheezing (scattered bilat) present. No decreased breath sounds, rhonchi or rales. Musculoskeletal: Cervical back: Normal range of motion and neck supple. Lymphadenopathy: Cervical: No cervical adenopathy. Right cervical: No superficial cervical adenopathy. Left cervical: No superficial cervical adenopathy. Skin: Findings: No rash. Neurological: Mental Status: She is alert and oriented to person, place, and time. ASSESSMENT/PLAN: 1. Community acquired pneumonia of right upper lobe of lung - ICD9: 486, ICD10: J18.9 (primary diagnosis) - Discussed supportive care - Limit exposure to smoke and other inhaled irritants - Discussed possible red flags and when to seek medical attention - Follow up in 3-5 days or sooner if no better or worse -If you experience chest pain/shortness of breath go to ER -make appointment with pcp in 3 days for recheck. - DOXYCYCLINE MONOHYDRATE 100 MG TABLET 2. Acute cough - ICD9: 786.2, ICD10: R05.1 Has f/u with pulm next week regarding lung ct/nodule. - XR CHEST 2V FRONTAL/LAT IMPRESSION: 1. Emphysema. 2. Irregular 3 c (more content not included)... [facility] 02-17-2022 History of Present illness Narrative Subjective HPI HPI Teagan Vaughan is a 71 year old female who presents today for CC of cough, congestion, sob. This started 9 days. Has tried otc medication for relief. Symptoms are worsened by nothing. Risk factors hx of copd. Hx of lung nodule, recent lung ct pending currently. .Patient presents with: Sinus Problem: sinus pressure, drainage, cough x 9 days PAST MEDICAL HISTORY Diagnosis Date Asthma PAST SURGICAL HISTORY Procedure Laterality Date APPENDECTOMY PAST SURGICAL HISTORY OF TMJ TOTAL ABDOMINAL HYSTERECT W/WO RMVL TUBE OVARY ALLERGIES Seasonal Allergies MEDICATIONS folic acid 1 mg tablet Take 2 mg by mouth once daily. hydrOXYchloroQUINE (PLAQUENIL) 200 mg tablet Take 200 mg by mouth twice daily. methotrexate 2.5 mg tablet Take 6 tablets by mouth one time a week. montelukast (SINGULAIR) 10 mg tablet Take 10 mg by mouth daily at bedtime. lansoprazole (PREVACID) 15 mg capsule Take 15 mg by mouth once daily. metoprolol tartrate, short acting, (LOPRESSOR) 50 mg tablet Take 50 mg by mouth twice daily. ACLIDINIUM BROMIDE (TUDORZA PRESSAIR INHALATION) Inhale as instructed. Nebulizer 1 Units every 6 hours as needed (wheezing or SOB). NEBULIZER FOR HOME USE. DX: acute bronchitis, asthma budesonide-formoterol (SYMBICORT) 160-4.5 mcg/actuation inhaler Inhale 2 Puffs as instructed twice daily. levothyroxine (SYNTHROID) 25 mcg tablet Take 25 mcg by mouth daily before breakfast. albuterol HFA (VENTOLIN HFA) 90 mcg/Actuation INHALATION inhaler Inhale 2 Puffs as instructed every 6 hours as needed. gabapentin (NEURONTIN) 300 mg capsule take 1 capsule by mouth at bedtime for 3 days then 1 capsule by m... (REFER TO PRESCRIPTION NOTES). (Patient not taking: Reported on 02/17/2022) albuterol (PROVENTIL) 2.5 mg /3 mL (0.083 %) nebulizer solution Use 3 mL via nebulizer every 6 hours as needed for Wheezing/Shortness of Breath. 1 vial contains 3 ml. (Patient not taking: Reported on 04/01/2019 ) FAMILY HISTORY Problem Relation Age of Onset Cancer Mother ovarian COPD Father Breast Cancer Maternal Grandmother Social History Tobacco Use Smoking status: Former Types: Cigarettes Smokeless tobacco: Never Substance Use Topics Alcohol use: No Drug use: No Review of Systems Constitutional: Negative for fever. HENT: Positive for congestion. Negative for ear pain, nosebleeds and sore throat. Respiratory: Positive for cough and shortness of breath. Negative for wheezing. Cardiovascular: Negative for chest pain. Musculoskeletal: Negative for neck pain. Skin: Negative for itching and rash. Objective Blood pressure 172/88, pulse 96, temperature 36.3 C (97.4 F), resp. rate 20, weight 110.7 kg (244 lb), SpO2 92 %. Bp recheck 140/90 manual by provider. Physical Exam Constitutional: General: She is not in acute distress. Appearance: She is not toxic-appearing or diaphoretic. HENT: Head: Normocephalic and atraumatic. Right Ear: Hearing, tympanic membrane, ear canal and external ear normal. Left Ear: Hearing, tympanic membrane, ear canal and external ear normal. Nose: Nose normal. Mouth/Throat: Pharynx: Uvula midline. No pharyngeal swelling, oropharyngeal exudate, posterior oropharyngeal erythema or uvula swelling. Eyes: General: Lids are normal. No scleral icterus. Right eye: No discharge. Left eye: No discharge. Conjunctiva/sclera: Conjunctivae normal. Pupils: Pupils are equal, round, and reactive to light. Neck: Trachea: Trachea normal. Cardiovascular: Rate and Rhythm: Normal rate and regular rhythm. Heart sounds: Normal heart sounds. Pulmonary: Effort: Pulmonary effort is normal. Breath sounds: Wheezing (scattered bilat) present. No decreased breath sounds, rhonchi or rales. Musculoskeletal: Cervical back: Normal range of motion and neck supple. Lymphadenopathy: Cervical: No cervical adenopathy. Right cervical: No superficial cervical adenopathy. Left cervical: No superficial cervical adenopathy. Skin: Findings: No rash. Neurological: Mental Status: She is alert and oriented to person, place, and time. ASSESSMENT/PLAN: 1. Community acquired pneumonia of right upper lobe of lung - ICD9: 486, ICD10: J18.9 (primary diagnosis) - Discussed supportive care - Limit exposure to smoke and other inhaled irritants - Discussed possible red flags and when to seek medical attention - Follow up in 3-5 days or sooner if no better or worse -If you experience chest pain/shortness of breath go to ER -make appointment with pcp in 3 days for recheck. - DOXYCYCLINE MONOHYDRATE 100 MG TABLET 2. Acute cough - ICD9: 786.2, ICD10: R05.1 Has f/u with pulm next week regarding lung ct/nodule. - XR CHEST 2V FRONTAL/LAT IMPRESSION: 1. Emphysema. 2. Irregular 3 cm opacity in the periphery of the right upper lung zone. Although this may be related to pneumonia, underlying neoplasm certainly not excluded. Further evaluation with CT chest is advised, with consideration to obtaining after appropriate interval treatment if patient demonstrates clinical signs and symptoms of infection). Incidental Finding: Follow-up Acuity: Incidental Finding: Suspicious appearing incidentally detected nodular lung density on CXR. Routing Code: RI_1 Recommendation: CT Chest WO IVCON Time Frame: in 4 weeks - patient awaiting lung ct results with core measures abstractor. Allyssa Singletary APRN.CHELLY documented in this encounter [facility] Diagnosis Malignant neoplasm of lower lobe of left lung- Primary Preoperative evaluation to rule out surgical contraindication Other specified pre-operative examination Other specified diabetes mellitus without complication, without long-term current use of insulin Hypertension, unspecified type [facility] Sinobronchitis- Primary Unspecified sinusitis (chronic) Rhonchi at both lung bases documented in this encounter [facility] Instructions Name Dates Details BMI 39.0-39.9,adult : How to access health information online Indication:BMI 39.0-39.9,adult BMI 39.0-39.9,adult : How to access health information online - Detail Indication:BMI 39.0-39.9,adult Right foot pain : Patient In structions Indication:Right foot pain HTN (hypertension), benign : How to access health information online Indication:HTN (hypertension), benign HTN (hypertension), benign : How to access health information online - Detail Indication:HTN (hypertension), benign HTN (hypertension), benign : Patient Instructions Indication:HTN (hypertension), benign BMI 38.0-38.9,adult : How to access health information online Indication:BMI 38.0-38.9,adult BMI 38.0-38.9,adult : How to access health information online - Detail Indication:BMI 38.0-38.9,adult BMI 38.0-38.9,adult : Patien t Instructions Indication:BMI 38.0-38.9,adult Elevated heart rate with hortencia vated blood pressure and diagnosis of hypertension : Patient Instructions Indication:Elevated heart rate with elevated blood pressure and diagnosis of hypertension Redness of eye, left : How t o access health information online Indication:Redness of eye, left Redness of eye, left : How t o access health information online - Detail Indication:Redness of eye, left Redness of eye, left : Patiradha nt Instructions Indication:Redness of eye, left Current non-smoker : How to access health information online Indication:Current non-smoker Current non-smoker : How to access health information online - Detail Indication:Current non-smoker Current non-smoker : Patient Instructions Indication:Current non-smoker Asthma with acute exacerbati on : How to access health information online Indication:Asthma with acute exacerbation Asthma with acute exacerbati on : How to access health information online - Detail Indication:Asthma with acute exacerbation BMI 37.0-37.9, adult : How t o access health information online Indication:BMI 37.0-37.9, adult BMI 37.0-37.9, adult : How t o access health information online - Detail Indication:BMI 37.0-37.9, adult BMI 37.0-37.9, adult : Patie nt Instructions Indication:BMI 37.0-37.9, adult Abnormal lung sounds : How t o access health information online Indication:Abnormal lung sounds Abnormal lung sounds : How t o access health information online - Detail Indication:Abnormal lung sounds Abnormal lung sounds : Patiradha nt Instructions Indication:Abnormal lung sounds Diabetes mellitus type 2, un controlled, without complications : How to access health information online Indication:Diabetes mellitus type 2, uncontrolled, without complications Diabetes mellitus type 2, un controlled, without complications : How to access health information online - Detail Indication:Diabetes mellitus type 2, uncontrolled, without complications Diabetes mellitus type 2, un controlled, without complications : Patient Instructions Indication:Diabetes mellitus type 2, uncontrolled, without complications Asthma with acute exacerbati on : Patient Instructions Indication:Asthma with acute exacerbation Arthritis pain, hand : How t o access health information online Indication:Arthritis pain, hand Arthritis pain, hand : How t o access health information online - Detail Indication:Arthritis pain, hand Arthritis pain, hand : Patie nt Instructions Indication:Arthritis pain, hand Weight gain : How to access health information online Indication:Weight gain Weight gain : How to access health information online - Detail Indication:Weight gain Weight gain : Patient Instru ctions Indication:Weight gain BMI 36.0-36.9,adult : Patien t Instructions Indication:BMI 36.0-36.9,adult Cough : How to access health information online Indication:Cough Cough : How to access health information online - Detail Indication:Cough Cough : Patient Instructions Indication:Cough THUMB PAIN : Patient Instruc tions Indication:THUMB PAIN Hyperglyceridemia : Patient Instructions Indication:Hyperglyceridemia BMI 36.0-36.9,adult : obesit y counseling Indication:BMI 36.0-36.9,adult Asthma : Patient Instruction s Indication:Asthma COPD WITH (ACUTE) EXACERBATI ON : Patient Instructions Indication:COPD WITH (ACUTE) EXACERBATION Name Dates Details Nonsmoker : How to access he alth information online Indication:Nonsmoker Nonsmoker : How to access he alth information online - Detail Indication:Nonsmoker Nonsmoker : Patient Instruct ions Indication:Nonsmoker BMI 39.0-39.9,adult : How to access health information online Indication:BMI 39.0-39.9,adult BMI 39.0-39.9,adult : How to access health information online - Detail Indication:BMI 39.0-39.9,adult Right foot pain : Patient In structions Indication:Right foot pain HTN (hypertension), benign : How to access health information online Indication:HTN (hypertension), benign HTN (hypertension), benign : How to access health information online - Detail Indication:HTN (hypertension), benign HTN (hypertension), benign : Patient Instructions Indication:HTN (hypertension), benign BMI 38.0-38.9,adult : How to access health information online Indication:BMI 38.0-38.9,adult BMI 38.0-38.9,adult : How to access health information online - Detail Indication:BMI 38.0-38.9,adult BMI 38.0-38.9,adult : Patien t Instructions Indication:BMI 38.0-38.9,adult Elevated heart rate with hortencia vated blood pressure and diagnosis of hypertension : Patient Instructions Indication:Elevated heart rate with elevated blood pressure and diagnosis of hypertension Redness of eye, left : How t o access health information online Indication:Redness of eye, left Redness of eye, left : How t o access health information online - Detail Indication:Redness of eye, left Redness of eye, left : Patie nt Instructions Indication:Redness of eye, left Current non-smoker : How to access health information online Indication:Current non-smoker Current non-smoker : How to access health information online - Detail Indication:Current non-smoker Current non-smoker : Patient Instructions Indication:Current non-smoker Asthma with acute exacerbati on : How to access health information online Indication:Asthma with acute exacerbation Asthma with acute exacerbati on : How to access health information online - Detail Indication:Asthma with acute exacerbation BMI 37.0-37.9, adult : How t o access health information online Indication:BMI 37.0-37.9, adult BMI 37.0-37.9, adult : How t o access health information online - Detail Indication:BMI 37.0-37.9, adult BMI 37.0-37.9, adult : Patie nt Instructions Indication:BMI 37.0-37.9, adult Abnormal lung sounds : How t o access health information online Indication:Abnormal lung sounds Abnormal lung sounds : How t o access health information online - Detail Indication:Abnormal lung sounds Abnormal lung sounds : Patie nt Instructions Indication:Abnormal lung sounds Diabetes mellitus type 2, un controlled, without complications : How to access health information online Indication:Diabetes mellitus type 2, uncontrolled, without complications Diabetes mellitus type 2, un controlled, without complications : How to access health information online - Detail Indication:Diabetes mellitus type 2, uncontrolled, without complications Diabetes mellitus type 2, un controlled, without complications : Patient Instructions Indication:Diabetes mellitus type 2, uncontrolled, without complications Asthma with acute exacerbati on : Patient Instructions Indication:Asthma with acute exacerbation Arthritis pain, hand : How t o access health information online Indication:Arthritis pain, hand Arthritis pain, hand : How t o access health information online - Detail Indication:Arthritis pain, hand Arthritis pain, hand : Patie nt Instructions Indication:Arthritis pain, hand Weight gain : How to access health information online Indication:Weight gain Weight gain : How to access health information online - Detail Indication:Weight gain Weight gain : Patient Instru ctions Indication:Weight gain BMI 36.0-36.9,adult : Patien t Instructions Indication:BMI 36.0-36.9,adult Cough : How to access health information online Indication:Cough Cough : How to access health information online - Detail Indication:Cough Cough : Patient Instructions Indication:Cough THUMB PAIN : Patient Instruc tions Indication:THUMB PAIN Hyperglyceridemia : Patient Instructions Indication:Hyperglyceridemia BMI 36.0-36.9,adult : obesit y counseling Indication:BMI 36.0-36.9,adult Asthma : Patient Instruction s Indication:Asthma COPD WITH (ACUTE) EXACERBATI ON : Patient Instructions Indication:COPD WITH (ACUTE) EXACERBATION Name Dates Details Nonsmoker : How to access he alth information online Indication:Nonsmoker Nonsmoker : How to access he alth information online - Detail Indication:Nonsmoker Nonsmoker : Patient Instruct ions Indication:Nonsmoker BMI 39.0-39.9,adult : How to access health information online Indication:BMI 39.0-39.9,adult BMI 39.0-39.9,adult : How to access health information online - Detail Indication:BMI 39.0-39.9,adult Right foot pain : Patient In structions Indication:Right foot pain HTN (hypertension), benign : How to access health information online Indication:HTN (hypertension), benign HTN (hypertension), benign : How to access health information online - Detail Indication:HTN (hypertension), benign HTN (hypertension), benign : Patient Instructions Indication:HTN (hypertension), benign BMI 38.0-38.9,adult : How to access health information online Indication:BMI 38.0-38.9,adult BMI 38.0-38.9,adult : How to access health information online - Detail Indication:BMI 38.0-38.9,adult BMI 38.0-38.9,adult : Patien t Instructions Indication:BMI 38.0-38.9,adult Elevated heart rate with hortencia vated blood pressure and diagnosis of hypertension : Patient Instructions Indication:Elevated heart rate with elevated blood pressure and diagnosis of hypertension Redness of eye, left : How t o access health information online Indication:Redness of eye, left Redness of eye, left : How t o access health information online - Detail Indication:Redness of eye, left Redness of eye, left : Patie nt Instructions Indication:Redness of eye, left Current non-smoker : How to access health information online Indication:Current non-smoker Current non-smoker : How to access health information online - Detail Indication:Current non-smoker Current non-smoker : Patient Instructions Indication:Current non-smoker Asthma with acute exacerbati on : How to access health information online Indication:Asthma with acute exacerbation Asthma with acute exacerbati on : How to access health information online - Detail Indication:Asthma with acute exacerbation BMI 37.0-37.9, adult : How t o access health information online Indication:BMI 37.0-37.9, adult BMI 37.0-37.9, adult : How t o access health information online - Detail Indication:BMI 37.0-37.9, adult BMI 37.0-37.9, adult : Patie nt Instructions Indication:BMI 37.0-37.9, adult Abnormal lung sounds : How t o access health information online Indication:Abnormal lung sounds Abnormal lung sounds : How t o access health information online - Detail Indication:Abnormal lung sounds Abnormal lung sounds : Patie nt Instructions Indication:Abnormal lung sounds Diabetes mellitus type 2, un controlled, without complications : How to access health information online Indication:Diabetes mellitus type 2, uncontrolled, without complications Diabetes mellitus type 2, un controlled, without complications : How to access health information online - Detail Indication:Diabetes mellitus type 2, uncontrolled, without complications Diabetes mellitus type 2, un controlled, without complications : Patient Instructions Indication:Diabetes mellitus type 2, uncontrolled, without complications Asthma with acute exacerbati on : Patient Instructions Indication:Asthma with acute exacerbation Arthritis pain, hand : How t o access health information online Indication:Arthritis pain, hand Arthritis pain, hand : How t o access health information online - Detail Indication:Arthritis pain, hand Arthritis pain, hand : Patie nt Instructions Indication:Arthritis pain, hand Weight gain : How to access health information online Indication:Weight gain Weight gain : How to access health information online - Detail Indication:Weight gain Weight gain : Patient Instru ctions Indication:Weight gain BMI 36.0-36.9,adult : Patien t Instructions Indication:BMI 36.0-36.9,adult Cough : How to access health information online Indication:Cough Cough : How to access health information online - Detail Indication:Cough Cough : Patient Instructions Indication:Cough THUMB PAIN : Patient Instruc tions Indication:THUMB PAIN Hyperglyceridemia : Patient Instructions Indication:Hyperglyceridemia BMI 36.0-36.9,adult : obesit y counseling Indication:BMI 36.0-36.9,adult Asthma : Patient Instruction s Indication:Asthma COPD WITH (ACUTE) EXACERBATI ON : Patient Instructions Indication:COPD WITH (ACUTE) EXACERBATION Name Dates Details How to access health informa tion online Indication:Nonsmoker Start:26-May-2018 Instruction Type:Patient Education How to access health informa tion online - Detail Indication:Nonsmoker Start:26-May-2018 Instruction Type:Patient Education Patient Instructions Indication:Nonsmoker Start:26-May-2018 Instruction Type:Provider Instructions for Treatment How to access health informa tion online Indication:Nonsmoker Start:28-Apr-2018 Instruction Type:Patient Education How to access health informa tion online - Detail Indication:Nonsmoker Start:28-Apr-2018 Instruction Type:Patient Education Patient Instructions Indication:Nonsmoker Start:28-Apr-2018 Instruction Type:Provider Instructions for Treatment How to access health informa tion online Indication:Nonsmoker Start:31-Jan-2018 Instruction Type:Patient Education How to access health informa tion online - Detail Indication:Nonsmoker Start:31-Jan-2018 Instruction Type:Patient Education Patient Instructions Indication:Nonsmoker Start:31-Jan-2018 Instruction Type:Provider Instructions for Treatment How to access health informa tion online Indication:BMI 39.0-39.9,adult Start:09-Nov-2017 Instruction Type:Patient Education How to access health informa tion online - Detail Indication:BMI 39.0-39.9,adult Start:09-Nov-2017 Instruction Type:Patient Education Patient Instructions Indication:Right foot pain Start:09-Nov-2017 Instruction Type:Provider Instructions for Treatment How to access health informa tion online Indication:HTN (hypertension), benign Start:15-Sep-2017 Instruction Type:Patient Education How to access health informa tion online - Detail Indication:HTN (hypertension), benign Start:15-Sep-2017 Instruction Type:Patient Education Patient Instructions Indication:HTN (hypertension), benign Start:15-Sep-2017 Instruction Type:Provider Instructions for Treatment How to access health informa tion online Indication:BMI 38.0-38.9,adult Start:12-Aug-2017 Instruction Type:Patient Education How to access health informa tion online - Detail Indication:BMI 38.0-38.9,adult Start:12-Aug-2017 Instruction Type:Patient Education Patient Instructions Indication:BMI 38.0-38.9,adult Start:12-Aug-2017 Instruction Type:Provider Instructions for Treatment How to access health informa tion online Indication:BMI 38.0-38.9,adult Start:12-Oct-2016 Instruction Type:Patient Education How to access health informa tion online - Detail Indication:BMI 38.0-38.9,adult Start:12-Oct-2016 Instruction Type:Patient Education Patient Instructions Indication:Elevated heart rate with elevated blood pressure and diagnosis of hypertension Start:12-Oct-2016 Instruction Type:Provider Instructions for Treatment How to access health informa tion online Indication:Redness of eye, left Start:05-Oct-2016 Instruction Type:Patient Education How to access health informa tion online - Detail Indication:Redness of eye, left Start:05-Oct-2016 Instruction Type:Patient Education Patient Instructions Indication:Redness of eye, left Start:05-Oct-2016 Instruction Type:Provider Instructions for Treatment How to access health informa tion online Indication:BMI 38.0-38.9,adult Start:28-Sep-2016 Instruction Type:Patient Education How to access health informa tion online - Detail Indication:BMI 38.0-38.9,adult Start:28-Sep-2016 Instruction Type:Patient Education Patient Instructions Indication:BMI 38.0-38.9,adult Start:28-Sep-2016 Instruction Type:Provider Instructions for Treatment How to access health informa tion online Indication:Current non-smoker Start:10-Jun-2016 Instruction Type:Patient Education How to access health informa tion online - Detail Indication:Current non-smoker Start:10-Jun-2016 Instruction Type:Patient Education Patient Instructions Indication:Current non-smoker Start:10-Jun-2016 Instruction Type:Provider Instructions for Treatment How to access health informa tion online Indication:Asthma with acute exacerbation Start:08-Jun-2016 Instruction Type:Patient Education How to access health informa tion online - Detail Indication:Asthma with acute exacerbation Start:08-Jun-2016 Instruction Type:Patient Education How to access health informa tion online - Detail Indication:Current non-smoker Start:05-Jun-2016 Instruction Type:Patient Education Patient Instructions Indication:Current non-smoker Start:05-Jun-2016 Instruction Type:Provider Instructions for Treatment How to access health informa tion online Indication:Current non-smoker Start:04-Jun-2016 Instruction Type:Patient Education How to access health informa tion online - Detail Indication:Current non-smoker Start:04-Jun-2016 Instruction Type:Patient Education Patient Instructions Indication:Current non-smoker Start:04-Jun-2016 Instruction Type:Provider Instructions for Treatment How to access health informa tion online Indication:BMI 37.0-37.9, adult Start:01-Jun-2016 Instruction Type:Patient Education How to access health informa tion online - Detail Indication:BMI 37.0-37.9, adult Start:01-Jun-2016 Instruction Type:Patient Education Patient Instructions Indication:BMI 37.0-37.9, adult Start:01-Jun-2016 Instruction Type:Provider Instructions for Treatment How to access health informa tion online Indication:Abnormal lung sounds Start:24-Jun-2015 Instruction Type:Patient Education How to access health informa tion online - Detail Indication:Abnormal lung sounds Start:24-Jun-2015 Instruction Type:Patient Education Patient Instructions Indication:Abnormal lung sounds Start:24-Jun-2015 Instruction Type:Provider Instructions for Treatment How to access health informa tion online Indication:Diabetes mellitus type 2, uncontrolled, without complications Start:12-Jun-2015 Instruction Type:Patient Education How to access health informa tion online - Detail Indication:Diabetes mellitus type 2, uncontrolled, without complications Start:12-Jun-2015 Instruction Type:Patient Education Patient Instructions Indication:Diabetes mellitus type 2, uncontrolled, without complications Start:12-Jun-2015 Instruction Type:Provider Instructions for Treatment Patient Instructions Indication:Asthma with acute exacerbation Start:05-Jun-2015 Instruction Type:Provider Instructions for Treatment How to access health informa tion online Indication:Arthritis pain, hand Start:06-Feb-2015 Instruction Type:Patient Education How to access health informa tion online - Detail Indication:Arthritis pain, hand Start:06-Feb-2015 Instruction Type:Patient Education Patient Instructions Indication:Arthritis pain, hand Start:06-Feb-2015 Instruction Type:Provider Instructions for Treatment How to access health informa tion online Indication:Diabetes mellitus type 2, uncontrolled, without complications Start:14-Dec-2013 Instruction Type:Patient Education How to access health informa tion online - Detail Indication:Diabetes mellitus type 2, uncontrolled, without complications Start:14-Dec-2013 Instruction Type:Patient Education Patient Instructions Indication:Diabetes mellitus type 2, uncontrolled, without complications Start:14-Dec-2013 Instruction Type:Provider Instructions for Treatment How to access health informa tion online Indication:Weight gain Start:16-Nov-2013 Instruction Type:Patient Education How to access health informa tion online - Detail Indication:Weight gain Start:16-Nov-2013 Instruction Type:Patient Education Patient Instructions Indication:Weight gain Start:16-Nov-2013 Instruction Type:Provider Instructions for Treatment Patient Instructions Indication:BMI 36.0-36.9,adult Start:03-Nov-2013 Instruction Type:Provider Instructions for Treatment How to access health informa tion online Indication:Asthma with acute exacerbation Start:20-Oct-2013 Instruction Type:Patient Education How to access health informa tion online - Detail Indication:Asthma with acute exacerbation Start:20-Oct-2013 Instruction Type:Patient Education Patient Instructions Indication:Asthma with acute exacerbation Start:20-Oct-2013 Instruction Type:Provider Instructions for Treatment How to access health informa tion online Indication:Asthma with acute exacerbation Start:20-Sep-2013 Instruction Type:Patient Education How to access health informa tion online - Detail Indication:Asthma with acute exacerbation Start:20-Sep-2013 Instruction Type:Patient Education Patient Instructions Indication:Asthma with acute exacerbation Start:20-Sep-2013 Instruction Type:Provider Instructions for Treatment How to access health informa tion online Indication:Cough Start:30-Aug-2013 Instruction Type:Patient Education How to access health informa tion online - Detail Indication:Cough Start:30-Aug-2013 Instruction Type:Patient Education Patient Instructions Indication:Cough Start:30-Aug-2013 Instruction Type:Provider Instructions for Treatment Patient Instructions Indication:THUMB PAIN Start:20-Dec-2012 Instruction Type:Provider Instructions for Treatment Patient Instructions Indication:Hyperglyceridemia Start:11-Nov-2012 Instruction Type:Provider Instructions for Treatment Patient Instructions Indication:BMI 36.0-36.9,adult Start:06-Oct-2012 Instruction Type:Provider Instructions for Treatment obesity counseling Indication:BMI 36.0-36.9,adult Start:23-Sep-2012 Instruction Type:Provider Instructions for Treatment Patient Instructions Indication:BMI 36.0-36.9,adult Start:23-Sep-2012 Instruction Type:Provider Instructions for Treatment Patient Instructions Indication:BMI 36.0-36.9,adult Start:07-Sep-2012 Instruction Type:Provider Instructions for Treatment obesity counseling Indication:BMI 36.0-36.9,adult Start:24-Aug-2012 Instruction Type:Provider Instructions for Treatment Patient Instructions Indication:BMI 36.0-36.9,adult Start:24-Aug-2012 Instruction Type:Provider Instructions for Treatment obesity counseling Indication:BMI 36.0-36.9,adult Start:10-Aug-2012 Instruction Type:Provider Instructions for Treatment Patient Instructions Indication:Hyperglyceridemia Start:10-Aug-2012 Instruction Type:Provider Instructions for Treatment Patient Instructions Indication:Asthma Start:15-Jul-2012 Instruction Type:Provider Instructions for Treatment Patient Instructions Indication:THUMB PAIN Start:08-Apr-2012 Instruction Type:Provider Instructions for Treatment Patient Instructions Indication:COPD WITH (ACUTE) EXACERBATION Start:17-Feb-2012 Instruction Type:Provider Instructions for Treatment Name Dates Details How to access health informa tion online Indication:Nonsmoker Start:08-Aug-2018 Instruction Type:Patient Education How to access health informa tion online - Detail Indication:Nonsmoker Start:08-Aug-2018 Instruction Type:Patient Education Patient Instructions Indication:Nonsmoker Start:08-Aug-2018 Instruction Type:Provider Instructions for Treatment How to access health informa tion online Indication:Nonsmoker Start:26-May-2018 Instruction Type:Patient Education How to access health informa tion online - Detail Indication:Nonsmoker Start:26-May-2018 Instruction Type:Patient Education Patient Instructions Indication:Nonsmoker Start:26-May-2018 Instruction Type:Provider Instructions for Treatment How to access health informa tion online Indication:Nonsmoker Start:28-Apr-2018 Instruction Type:Patient Education How to access health informa tion online - Detail Indication:Nonsmoker Start:28-Apr-2018 Instruction Type:Patient Education Patient Instructions Indication:Nonsmoker Start:28-Apr-2018 Instruction Type:Provider Instructions for Treatment How to access health informa tion online Indication:Nonsmoker Start:31-Jan-2018 Instruction Type:Patient Education How to access health informa tion online - Detail Indication:Nonsmoker Start:31-Jan-2018 Instruction Type:Patient Education Patient Instructions Indication:Nonsmoker Start:31-Jan-2018 Instruction Type:Provider Instructions for Treatment How to access health informa tion online Indication:BMI 39.0-39.9,adult Start:09-Nov-2017 Instruction Type:Patient Education How to access health informa tion online - Detail Indication:BMI 39.0-39.9,adult Start:09-Nov-2017 Instruction Type:Patient Education Patient Instructions Indication:Right foot pain Start:09-Nov-2017 Instruction Type:Provider Instructions for Treatment How to access health informa tion online Indication:HTN (hypertension), benign Start:15-Sep-2017 Instruction Type:Patient Education How to access health informa tion online - Detail Indication:HTN (hypertension), benign Start:15-Sep-2017 Instruction Type:Patient Education Patient Instructions Indication:HTN (hypertension), benign Start:15-Sep-2017 Instruction Type:Provider Instructions for Treatment How to access health informa tion online Indication:BMI 38.0-38.9,adult Start:12-Aug-2017 Instruction Type:Patient Education How to access health informa tion online - Detail Indication:BMI 38.0-38.9,adult Start:12-Aug-2017 Instruction Type:Patient Education Patient Instructions Indication:BMI 38.0-38.9,adult Start:12-Aug-2017 Instruction Type:Provider Instructions for Treatment How to access health informa tion online Indication:BMI 38.0-38.9,adult Start:12-Oct-2016 Instruction Type:Patient Education How to access health informa tion online - Detail Indication:BMI 38.0-38.9,adult Start:12-Oct-2016 Instruction Type:Patient Education Patient Instructions Indication:Elevated heart rate with elevated blood pressure and diagnosis of hypertension Start:12-Oct-2016 Instruction Type:Provider Instructions for Treatment How to access health informa tion online Indication:Redness of eye, left Start:05-Oct-2016 Instruction Type:Patient Education How to access health informa tion online - Detail Indication:Redness of eye, left Start:05-Oct-2016 Instruction Type:Patient Education Patient Instructions Indication:Redness of eye, left Start:05-Oct-2016 Instruction Type:Provider Instructions for Treatment How to access health informa tion online Indication:BMI 38.0-38.9,adult Start:28-Sep-2016 Instruction Type:Patient Education How to access health informa tion online - Detail Indication:BMI 38.0-38.9,adult Start:28-Sep-2016 Instruction Type:Patient Education Patient Instructions Indication:BMI 38.0-38.9,adult Start:28-Sep-2016 Instruction Type:Provider Instructions for Treatment How to access health informa tion online Indication:Current non-smoker Start:10-Jun-2016 Instruction Type:Patient Education How to access health informa tion online - Detail Indication:Current non-smoker Start:10-Jun-2016 Instruction Type:Patient Education Patient Instructions Indication:Current non-smoker Start:10-Jun-2016 Instruction Type:Provider Instructions for Treatment How to access health informa tion online Indication:Asthma with acute exacerbation Start:08-Jun-2016 Instruction Type:Patient Education How to access health informa tion online - Detail Indication:Asthma with acute exacerbation Start:08-Jun-2016 Instruction Type:Patient Education How to access health informa tion online - Detail Indication:Current non-smoker Start:05-Jun-2016 Instruction Type:Patient Education Patient Instructions Indication:Current non-smoker Start:05-Jun-2016 Instruction Type:Provider Instructions for Treatment How to access health informa tion online Indication:Current non-smoker Start:04-Jun-2016 Instruction Type:Patient Education How to access health informa tion online - Detail Indication:Current non-smoker Start:04-Jun-2016 Instruction Type:Patient Education Patient Instructions Indication:Current non-smoker Start:04-Jun-2016 Instruction Type:Provider Instructions for Treatment How to access health informa tion online Indication:BMI 37.0-37.9, adult Start:01-Jun-2016 Instruction Type:Patient Education How to access health informa tion online - Detail Indication:BMI 37.0-37.9, adult Start:01-Jun-2016 Instruction Type:Patient Education Patient Instructions Indication:BMI 37.0-37.9, adult Start:01-Jun-2016 Instruction Type:Provider Instructions for Treatment How to access health informa tion online Indication:Abnormal lung sounds Start:24-Jun-2015 Instruction Type:Patient Education How to access health informa tion online - Detail Indication:Abnormal lung sounds Start:24-Jun-2015 Instruction Type:Patient Education Patient Instructions Indication:Abnormal lung sounds Start:24-Jun-2015 Instruction Type:Provider Instructions for Treatment How to access health informa tion online Indication:Diabetes mellitus type 2, uncontrolled, without complications Start:12-Jun-2015 Instruction Type:Patient Education How to access health informa tion online - Detail Indication:Diabetes mellitus type 2, uncontrolled, without complications Start:12-Jun-2015 Instruction Type:Patient Education Patient Instructions Indication:Diabetes mellitus type 2, uncontrolled, without complications Start:12-Jun-2015 Instruction Type:Provider Instructions for Treatment Patient Instructions Indication:Asthma with acute exacerbation Start:05-Jun-2015 Instruction Type:Provider Instructions for Treatment How to access health informa tion online Indication:Arthritis pain, hand Start:06-Feb-2015 Instruction Type:Patient Education How to access health informa tion online - Detail Indication:Arthritis pain, hand Start:06-Feb-2015 Instruction Type:Patient Education Patient Instructions Indication:Arthritis pain, hand Start:06-Feb-2015 Instruction Type:Provider Instructions for Treatment How to access health informa tion online Indication:Diabetes mellitus type 2, uncontrolled, without complications Start:14-Dec-2013 Instruction Type:Patient Education How to access health informa tion online - Detail Indication:Diabetes mellitus type 2, uncontrolled, without complications Start:14-Dec-2013 Instruction Type:Patient Education Patient Instructions Indication:Diabetes mellitus type 2, uncontrolled, without complications Start:14-Dec-2013 Instruction Type:Provider Instructions for Treatment How to access health informa tion online Indication:Weight gain Start:16-Nov-2013 Instruction Type:Patient Education How to access health informa tion online - Detail Indication:Weight gain Start:16-Nov-2013 Instruction Type:Patient Education Patient Instructions Indication:Weight gain Start:16-Nov-2013 Instruction Type:Provider Instructions for Treatment Patient Instructions Indication:BMI 36.0-36.9,adult Start:03-Nov-2013 Instruction Type:Provider Instructions for Treatment How to access health informa tion online Indication:Asthma with acute exacerbation Start:20-Oct-2013 Instruction Type:Patient Education How to access health informa tion online - Detail Indication:Asthma with acute exacerbation Start:20-Oct-2013 Instruction Type:Patient Education Patient Instructions Indication:Asthma with acute exacerbation Start:20-Oct-2013 Instruction Type:Provider Instructions for Treatment How to access health informa tion online Indication:Asthma with acute exacerbation Start:20-Sep-2013 Instruction Type:Patient Education How to access health informa tion online - Detail Indication:Asthma with acute exacerbation Start:20-Sep-2013 Instruction Type:Patient Education Patient Instructions Indication:Asthma with acute exacerbation Start:20-Sep-2013 Instruction Type:Provider Instructions for Treatment How to access health informa tion online Indication:Cough Start:30-Aug-2013 Instruction Type:Patient Education How to access health informa tion online - Detail Indication:Cough Start:30-Aug-2013 Instruction Type:Patient Education Patient Instructions Indication:Cough Start:30-Aug-2013 Instruction Type:Provider Instructions for Treatment Patient Instructions Indication:THUMB PAIN Start:20-Dec-2012 Instruction Type:Provider Instructions for Treatment Patient Instructions Indication:Hyperglyceridemia Start:11-Nov-2012 Instruction Type:Provider Instructions for Treatment Patient Instructions Indication:BMI 36.0-36.9,adult Start:06-Oct-2012 Instruction Type:Provider Instructions for Treatment obesity counseling Indication:BMI 36.0-36.9,adult Start:23-Sep-2012 Instruction Type:Provider Instructions for Treatment Patient Instructions Indication:BMI 36.0-36.9,adult Start:23-Sep-2012 Instruction Type:Provider Instructions for Treatment Patient Instructions Indication:BMI 36.0-36.9,adult Start:07-Sep-2012 Instruction Type:Provider Instructions for Treatment obesity counseling Indication:BMI 36.0-36.9,adult Start:24-Aug-2012 Instruction Type:Provider Instructions for Treatment Patient Instructions Indication:BMI 36.0-36.9,adult Start:24-Aug-2012 Instruction Type:Provider Instructions for Treatment obesity counseling Indication:BMI 36.0-36.9,adult Start:10-Aug-2012 Instruction Type:Provider Instructions for Treatment Patient Instructions Indication:Hyperglyceridemia Start:10-Aug-2012 Instruction Type:Provider Instructions for Treatment Patient Instructions Indication:Asthma Start:15-Jul-2012 Instruction Type:Provider Instructions for Treatment Patient Instructions Indication:THUMB PAIN Start:08-Apr-2012 Instruction Type:Provider Instructions for Treatment Patient Instructions Indication:COPD WITH (ACUTE) EXACERBATION Start:17-Feb-2012 Instruction Type:Provider Instructions for Treatment Name Dates Details How to access health informa tion online Indication:Nonsmoker Start:08-Aug-2018 Instruction Type:Patient Education How to access health informa tion online - Detail Indication:Nonsmoker Start:08-Aug-2018 Instruction Type:Patient Education Patient Instructions Indication:Nonsmoker Start:08-Aug-2018 Instruction Type:Provider Instructions for Treatment How to access health informa tion online Indication:Nonsmoker Start:26-May-2018 Instruction Type:Patient Education How to access health informa tion online - Detail Indication:Nonsmoker Start:26-May-2018 Instruction Type:Patient Education Patient Instructions Indication:Nonsmoker Start:26-May-2018 Instruction Type:Provider Instructions for Treatment How to access health informa tion online Indication:Nonsmoker Start:28-Apr-2018 Instruction Type:Patient Education How to access health informa tion online - Detail Indication:Nonsmoker Start:28-Apr-2018 Instruction Type:Patient Education Patient Instructions Indication:Nonsmoker Start:28-Apr-2018 Instruction Type:Provider Instructions for Treatment How to access health informa tion online Indication:Nonsmoker Start:31-Jan-2018 Instruction Type:Patient Education How to access health informa tion online - Detail Indication:Nonsmoker Start:31-Jan-2018 Instruction Type:Patient Education Patient Instructions Indication:Nonsmoker Start:31-Jan-2018 Instruction Type:Provider Instructions for Treatment How to access health informa tion online Indication:BMI 39.0-39.9,adult Start:09-Nov-2017 Instruction Type:Patient Education How to access health informa tion online - Detail Indication:BMI 39.0-39.9,adult Start:09-Nov-2017 Instruction Type:Patient Education Patient Instructions Indication:Right foot pain Start:09-Nov-2017 Instruction Type:Provider Instructions for Treatment How to access health informa tion online Indication:HTN (hypertension), benign Start:15-Sep-2017 Instruction Type:Patient Education How to access health informa tion online - Detail Indication:HTN (hypertension), benign Start:15-Sep-2017 Instruction Type:Patient Education Patient Instructions Indication:HTN (hypertension), benign Start:15-Sep-2017 Instruction Type:Provider Instructions for Treatment How to access health informa tion online Indication:BMI 38.0-38.9,adult Start:12-Aug-2017 Instruction Type:Patient Education How to access health informa tion online - Detail Indication:BMI 38.0-38.9,adult Start:12-Aug-2017 Instruction Type:Patient Education Patient Instructions Indication:BMI 38.0-38.9,adult Start:12-Aug-2017 Instruction Type:Provider Instructions for Treatment How to access health informa tion online Indication:BMI 38.0-38.9,adult Start:12-Oct-2016 Instruction Type:Patient Education How to access health informa tion online - Detail Indication:BMI 38.0-38.9,adult Start:12-Oct-2016 Instruction Type:Patient Education Patient Instructions Indication:Elevated heart rate with elevated blood pressure and diagnosis of hypertension Start:12-Oct-2016 Instruction Type:Provider Instructions for Treatment How to access health informa tion online Indication:Redness of eye, left Start:05-Oct-2016 Instruction Type:Patient Education How to access health informa tion online - Detail Indication:Redness of eye, left Start:05-Oct-2016 Instruction Type:Patient Education Patient Instructions Indication:Redness of eye, left Start:05-Oct-2016 Instruction Type:Provider Instructions for Treatment How to access health informa tion online Indication:BMI 38.0-38.9,adult Start:28-Sep-2016 Instruction Type:Patient Education How to access health informa tion online - Detail Indication:BMI 38.0-38.9,adult Start:28-Sep-2016 Instruction Type:Patient Education Patient Instructions Indication:BMI 38.0-38.9,adult Start:28-Sep-2016 Instruction Type:Provider Instructions for Treatment How to access health informa tion online Indication:Current non-smoker Start:10-Jun-2016 Instruction Type:Patient Education How to access health informa tion online - Detail Indication:Current non-smoker Start:10-Jun-2016 Instruction Type:Patient Education Patient Instructions Indication:Current non-smoker Start:10-Jun-2016 Instruction Type:Provider Instructions for Treatment How to access health informa tion online Indication:Asthma with acute exacerbation Start:08-Jun-2016 Instruction Type:Patient Education How to access health informa tion online - Detail Indication:Asthma with acute exacerbation Start:08-Jun-2016 Instruction Type:Patient Education How to access health informa tion online - Detail Indication:Current non-smoker Start:05-Jun-2016 Instruction Type:Patient Education Patient Instructions Indication:Current non-smoker Start:05-Jun-2016 Instruction Type:Provider Instructions for Treatment How to access health informa tion online Indication:Current non-smoker Start:04-Jun-2016 Instruction Type:Patient Education How to access health informa tion online - Detail Indication:Current non-smoker Start:04-Jun-2016 Instruction Type:Patient Education Patient Instructions Indication:Current non-smoker Start:04-Jun-2016 Instruction Type:Provider Instructions for Treatment How to access health informa tion online Indication:BMI 37.0-37.9, adult Start:01-Jun-2016 Instruction Type:Patient Education How to access health informa tion online - Detail Indication:BMI 37.0-37.9, adult Start:01-Jun-2016 Instruction Type:Patient Education Patient Instructions Indication:BMI 37.0-37.9, adult Start:01-Jun-2016 Instruction Type:Provider Instructions for Treatment How to access health informa tion online Indication:Abnormal lung sounds Start:24-Jun-2015 Instruction Type:Patient Education How to access health informa tion online - Detail Indication:Abnormal lung sounds Start:24-Jun-2015 Instruction Type:Patient Education Patient Instructions Indication:Abnormal lung sounds Start:24-Jun-2015 Instruction Type:Provider Instructions for Treatment How to access health informa tion online Indication:Diabetes mellitus type 2, uncontrolled, without complications Start:12-Jun-2015 Instruction Type:Patient Education How to access health informa tion online - Detail Indication:Diabetes mellitus type 2, uncontrolled, without complications Start:12-Jun-2015 Instruction Type:Patient Education Patient Instructions Indication:Diabetes mellitus type 2, uncontrolled, without complications Start:12-Jun-2015 Instruction Type:Provider Instructions for Treatment Patient Instructions Indication:Asthma with acute exacerbation Start:05-Jun-2015 Instruction Type:Provider Instructions for Treatment How to access health informa tion online Indication:Arthritis pain, hand Start:06-Feb-2015 Instruction Type:Patient Education How to access health informa tion online - Detail Indication:Arthritis pain, hand Start:06-Feb-2015 Instruction Type:Patient Education Patient Instructions Indication:Arthritis pain, hand Start:06-Feb-2015 Instruction Type:Provider Instructions for Treatment How to access health informa tion online Indication:Diabetes mellitus type 2, uncontrolled, without complications Start:14-Dec-2013 Instruction Type:Patient Education How to access health informa tion online - Detail Indication:Diabetes mellitus type 2, uncontrolled, without complications Start:14-Dec-2013 Instruction Type:Patient Education Patient Instructions Indication:Diabetes mellitus type 2, uncontrolled, without complications Start:14-Dec-2013 Instruction Type:Provider Instructions for Treatment How to access health informa tion online Indication:Weight gain Start:16-Nov-2013 Instruction Type:Patient Education How to access health informa tion online - Detail Indication:Weight gain Start:16-Nov-2013 Instruction Type:Patient Education Patient Instructions Indication:Weight gain Start:16-Nov-2013 Instruction Type:Provider Instructions for Treatment Patient Instructions Indication:BMI 36.0-36.9,adult Start:03-Nov-2013 Instruction Type:Provider Instructions for Treatment How to access health informa tion online Indication:Asthma with acute exacerbation Start:20-Oct-2013 Instruction Type:Patient Education How to access health informa tion online - Detail Indication:Asthma with acute exacerbation Start:20-Oct-2013 Instruction Type:Patient Education Patient Instructions Indication:Asthma with acute exacerbation Start:20-Oct-2013 Instruction Type:Provider Instructions for Treatment How to access health informa tion online Indication:Asthma with acute exacerbation Start:20-Sep-2013 Instruction Type:Patient Education How to access health informa tion online - Detail Indication:Asthma with acute exacerbation Start:20-Sep-2013 Instruction Type:Patient Education Patient Instructions Indication:Asthma with acute exacerbation Start:20-Sep-2013 Instruction Type:Provider Instructions for Treatment How to access health informa tion online Indication:Cough Start:30-Aug-2013 Instruction Type:Patient Education How to access health informa tion online - Detail Indication:Cough Start:30-Aug-2013 Instruction Type:Patient Education Patient Instructions Indication:Cough Start:30-Aug-2013 Instruction Type:Provider Instructions for Treatment Patient Instructions Indication:THUMB PAIN Start:20-Dec-2012 Instruction Type:Provider Instructions for Treatment Patient Instructions Indication:Hyperglyceridemia Start:11-Nov-2012 Instruction Type:Provider Instructions for Treatment Patient Instructions Indication:BMI 36.0-36.9,adult Start:06-Oct-2012 Instruction Type:Provider Instructions for Treatment obesity counseling Indication:BMI 36.0-36.9,adult Start:23-Sep-2012 Instruction Type:Provider Instructions for Treatment Patient Instructions Indication:BMI 36.0-36.9,adult Start:23-Sep-2012 Instruction Type:Provider Instructions for Treatment Patient Instructions Indication:BMI 36.0-36.9,adult Start:07-Sep-2012 Instruction Type:Provider Instructions for Treatment obesity counseling Indication:BMI 36.0-36.9,adult Start:24-Aug-2012 Instruction Type:Provider Instructions for Treatment Patient Instructions Indication:BMI 36.0-36.9,adult Start:24-Aug-2012 Instruction Type:Provider Instructions for Treatment obesity counseling Indication:BMI 36.0-36.9,adult Start:10-Aug-2012 Instruction Type:Provider Instructions for Treatment Patient Instructions Indication:Hyperglyceridemia Start:10-Aug-2012 Instruction Type:Provider Instructions for Treatment Patient Instructions Indication:Asthma Start:15-Jul-2012 Instruction Type:Provider Instructions for Treatment Patient Instructions Indication:THUMB PAIN Start:08-Apr-2012 Instruction Type:Provider Instructions for Treatment Patient Instructions Indication:COPD WITH (ACUTE) EXACERBATION Start:17-Feb-2012 Instruction Type:Provider Instructions for Treatment Name Dates Details How to access health informa tion online Indication:Nonsmoker Start:08-Aug-2018 Instruction Type:Patient Education How to access health informa tion online - Detail Indication:Nonsmoker Start:08-Aug-2018 Instruction Type:Patient Education Patient Instructions Indication:Nonsmoker Start:08-Aug-2018 Instruction Type:Provider Instructions for Treatment How to access health informa tion online Indication:Nonsmoker Start:26-May-2018 Instruction Type:Patient Education How to access health informa tion online - Detail Indication:Nonsmoker Start:26-May-2018 Instruction Type:Patient Education Patient Instructions Indication:Nonsmoker Start:26-May-2018 Instruction Type:Provider Instructions for Treatment How to access health informa tion online Indication:Nonsmoker Start:28-Apr-2018 Instruction Type:Patient Education How to access health informa tion online - Detail Indication:Nonsmoker Start:28-Apr-2018 Instruction Type:Patient Education Patient Instructions Indication:Nonsmoker Start:28-Apr-2018 Instruction Type:Provider Instructions for Treatment How to access health informa tion online Indication:Nonsmoker Start:31-Jan-2018 Instruction Type:Patient Education How to access health informa tion online - Detail Indication:Nonsmoker Start:31-Jan-2018 Instruction Type:Patient Education Patient Instructions Indication:Nonsmoker Start:31-Jan-2018 Instruction Type:Provider Instructions for Treatment How to access health informa tion online Indication:BMI 39.0-39.9,adult Start:09-Nov-2017 Instruction Type:Patient Education How to access health informa tion online - Detail Indication:BMI 39.0-39.9,adult Start:09-Nov-2017 Instruction Type:Patient Education Patient Instructions Indication:Right foot pain Start:09-Nov-2017 Instruction Type:Provider Instructions for Treatment How to access health informa tion online Indication:HTN (hypertension), benign Start:15-Sep-2017 Instruction Type:Patient Education How to access health informa tion online - Detail Indication:HTN (hypertension), benign Start:15-Sep-2017 Instruction Type:Patient Education Patient Instructions Indication:HTN (hypertension), benign Start:15-Sep-2017 Instruction Type:Provider Instructions for Treatment How to access health informa tion online Indication:BMI 38.0-38.9,adult Start:12-Aug-2017 Instruction Type:Patient Education How to access health informa tion online - Detail Indication:BMI 38.0-38.9,adult Start:12-Aug-2017 Instruction Type:Patient Education Patient Instructions Indication:BMI 38.0-38.9,adult Start:12-Aug-2017 Instruction Type:Provider Instructions for Treatment How to access health informa tion online Indication:BMI 38.0-38.9,adult Start:12-Oct-2016 Instruction Type:Patient Education How to access health informa tion online - Detail Indication:BMI 38.0-38.9,adult Start:12-Oct-2016 Instruction Type:Patient Education Patient Instructions Indication:Elevated heart rate with elevated blood pressure and diagnosis of hypertension Start:12-Oct-2016 Instruction Type:Provider Instructions for Treatment How to access health informa tion online Indication:Redness of eye, left Start:05-Oct-2016 Instruction Type:Patient Education How to access health informa tion online - Detail Indication:Redness of eye, left Start:05-Oct-2016 Instruction Type:Patient Education Patient Instructions Indication:Redness of eye, left Start:05-Oct-2016 Instruction Type:Provider Instructions for Treatment How to access health informa tion online Indication:BMI 38.0-38.9,adult Start:28-Sep-2016 Instruction Type:Patient Education How to access health informa tion online - Detail Indication:BMI 38.0-38.9,adult Start:28-Sep-2016 Instruction Type:Patient Education Patient Instructions Indication:BMI 38.0-38.9,adult Start:28-Sep-2016 Instruction Type:Provider Instructions for Treatment How to access health informa tion online Indication:Current non-smoker Start:10-Jun-2016 Instruction Type:Patient Education How to access health informa tion online - Detail Indication:Current non-smoker Start:10-Jun-2016 Instruction Type:Patient Education Patient Instructions Indication:Current non-smoker Start:10-Jun-2016 Instruction Type:Provider Instructions for Treatment How to access health informa tion online Indication:Asthma with acute exacerbation Start:08-Jun-2016 Instruction Type:Patient Education How to access health informa tion online - Detail Indication:Asthma with acute exacerbation Start:08-Jun-2016 Instruction Type:Patient Education How to access health informa tion online - Detail Indication:Current non-smoker Start:05-Jun-2016 Instruction Type:Patient Education Patient Instructions Indication:Current non-smoker Start:05-Jun-2016 Instruction Type:Provider Instructions for Treatment How to access health informa tion online Indication:Current non-smoker Start:04-Jun-2016 Instruction Type:Patient Education How to access health informa tion online - Detail Indication:Current non-smoker Start:04-Jun-2016 Instruction Type:Patient Education Patient Instructions Indication:Current non-smoker Start:04-Jun-2016 Instruction Type:Provider Instructions for Treatment How to access health informa tion online Indication:BMI 37.0-37.9, adult Start:01-Jun-2016 Instruction Type:Patient Education How to access health informa tion online - Detail Indication:BMI 37.0-37.9, adult Start:01-Jun-2016 Instruction Type:Patient Education Patient Instructions Indication:BMI 37.0-37.9, adult Start:01-Jun-2016 Instruction Type:Provider Instructions for Treatment How to access health informa tion online Indication:Abnormal lung sounds Start:24-Jun-2015 Instruction Type:Patient Education How to access health informa tion online - Detail Indication:Abnormal lung sounds Start:24-Jun-2015 Instruction Type:Patient Education Patient Instructions Indication:Abnormal lung sounds Start:24-Jun-2015 Instruction Type:Provider Instructions for Treatment How to access health informa tion online Indication:Diabetes mellitus type 2, uncontrolled, without complications Start:12-Jun-2015 Instruction Type:Patient Education How to access health informa tion online - Detail Indication:Diabetes mellitus type 2, uncontrolled, without complications Start:12-Jun-2015 Instruction Type:Patient Education Patient Instructions Indication:Diabetes mellitus type 2, uncontrolled, without complications Start:12-Jun-2015 Instruction Type:Provider Instructions for Treatment Patient Instructions Indication:Asthma with acute exacerbation Start:05-Jun-2015 Instruction Type:Provider Instructions for Treatment How to access health informa tion online Indication:Arthritis pain, hand Start:06-Feb-2015 Instruction Type:Patient Education How to access health informa tion online - Detail Indication:Arthritis pain, hand Start:06-Feb-2015 Instruction Type:Patient Education Patient Instructions Indication:Arthritis pain, hand Start:06-Feb-2015 Instruction Type:Provider Instructions for Treatment How to access health informa tion online Indication:Diabetes mellitus type 2, uncontrolled, without complications Start:14-Dec-2013 Instruction Type:Patient Education How to access health informa tion online - Detail Indication:Diabetes mellitus type 2, uncontrolled, without complications Start:14-Dec-2013 Instruction Type:Patient Education Patient Instructions Indication:Diabetes mellitus type 2, uncontrolled, without complications Start:14-Dec-2013 Instruction Type:Provider Instructions for Treatment How to access health informa tion online Indication:Weight gain Start:16-Nov-2013 Instruction Type:Patient Education How to access health informa tion online - Detail Indication:Weight gain Start:16-Nov-2013 Instruction Type:Patient Education Patient Instructions Indication:Weight gain Start:16-Nov-2013 Instruction Type:Provider Instructions for Treatment Patient Instructions Indication:BMI 36.0-36.9,adult Start:03-Nov-2013 Instruction Type:Provider Instructions for Treatment How to access health informa tion online Indication:Asthma with acute exacerbation Start:20-Oct-2013 Instruction Type:Patient Education How to access health informa tion online - Detail Indication:Asthma with acute exacerbation Start:20-Oct-2013 Instruction Type:Patient Education Patient Instructions Indication:Asthma with acute exacerbation Start:20-Oct-2013 Instruction Type:Provider Instructions for Treatment How to access health informa tion online Indication:Asthma with acute exacerbation Start:20-Sep-2013 Instruction Type:Patient Education How to access health informa tion online - Detail Indication:Asthma with acute exacerbation Start:20-Sep-2013 Instruction Type:Patient Education Patient Instructions Indication:Asthma with acute exacerbation Start:20-Sep-2013 Instruction Type:Provider Instructions for Treatment How to access health informa tion online Indication:Cough Start:30-Aug-2013 Instruction Type:Patient Education How to access health informa tion online - Detail Indication:Cough Start:30-Aug-2013 Instruction Type:Patient Education Patient Instructions Indication:Cough Start:30-Aug-2013 Instruction Type:Provider Instructions for Treatment Patient Instructions Indication:THUMB PAIN Start:20-Dec-2012 Instruction Type:Provider Instructions for Treatment Patient Instructions Indication:Hyperglyceridemia Start:11-Nov-2012 Instruction Type:Provider Instructions for Treatment Patient Instructions Indication:BMI 36.0-36.9,adult Start:06-Oct-2012 Instruction Type:Provider Instructions for Treatment obesity counseling Indication:BMI 36.0-36.9,adult Start:23-Sep-2012 Instruction Type:Provider Instructions for Treatment Patient Instructions Indication:BMI 36.0-36.9,adult Start:23-Sep-2012 Instruction Type:Provider Instructions for Treatment Patient Instructions Indication:BMI 36.0-36.9,adult Start:07-Sep-2012 Instruction Type:Provider Instructions for Treatment obesity counseling Indication:BMI 36.0-36.9,adult Start:24-Aug-2012 Instruction Type:Provider Instructions for Treatment Patient Instructions Indication:BMI 36.0-36.9,adult Start:24-Aug-2012 Instruction Type:Provider Instructions for Treatment obesity counseling Indication:BMI 36.0-36.9,adult Start:10-Aug-2012 Instruction Type:Provider Instructions for Treatment Patient Instructions Indication:Hyperglyceridemia Start:10-Aug-2012 Instruction Type:Provider Instructions for Treatment Patient Instructions Indication:Asthma Start:15-Jul-2012 Instruction Type:Provider Instructions for Treatment Patient Instructions Indication:THUMB PAIN Start:08-Apr-2012 Instruction Type:Provider Instructions for Treatment Patient Instructions Indication:COPD WITH (ACUTE) EXACERBATION Start:17-Feb-2012 Instruction Type:Provider Instructions for Treatment Name Dates Details Nonsmoker : How to access he alth information online Indication:Nonsmoker Nonsmoker : How to access he alth information online - Detail Indication:Nonsmoker Nonsmoker : Patient Instruct ions Indication:Nonsmoker BMI 39.0-39.9,adult : How to access health information online Indication:BMI 39.0-39.9,adult BMI 39.0-39.9,adult : How to access health information online - Detail Indication:BMI 39.0-39.9,adult Right foot pain : Patient In structions Indication:Right foot pain HTN (hypertension), benign : How to access health information online Indication:HTN (hypertension), benign HTN (hypertension), benign : How to access health information online - Detail Indication:HTN (hypertension), benign HTN (hypertension), benign : Patient Instructions Indication:HTN (hypertension), benign BMI 38.0-38.9,adult : How to access health information online Indication:BMI 38.0-38.9,adult BMI 38.0-38.9,adult : How to access health information online - Detail Indication:BMI 38.0-38.9,adult BMI 38.0-38.9,adult : Patien t Instructions Indication:BMI 38.0-38.9,adult Elevated heart rate with hortencia vated blood pressure and diagnosis of hypertension : Patient Instructions Indication:Elevated heart rate with elevated blood pressure and diagnosis of hypertension Redness of eye, left : How t o access health information online Indication:Redness of eye, left Redness of eye, left : How t o access health information online - Detail Indication:Redness of eye, left Redness of eye, left : Patie nt Instructions Indication:Redness of eye, left Current non-smoker : How to access health information online Indication:Current non-smoker Current non-smoker : How to access health information online - Detail Indication:Current non-smoker Current non-smoker : Patient Instructions Indication:Current non-smoker Asthma with acute exacerbati on : How to access health information online Indication:Asthma with acute exacerbation Asthma with acute exacerbati on : How to access health information online - Detail Indication:Asthma with acute exacerbation BMI 37.0-37.9, adult : How t o access health information online Indication:BMI 37.0-37.9, adult BMI 37.0-37.9, adult : How t o access health information online - Detail Indication:BMI 37.0-37.9, adult BMI 37.0-37.9, adult : Patie nt Instructions Indication:BMI 37.0-37.9, adult Abnormal lung sounds : How t o access health information online Indication:Abnormal lung sounds Abnormal lung sounds : How t o access health information online - Detail Indication:Abnormal lung sounds Abnormal lung sounds : Patie nt Instructions Indication:Abnormal lung sounds Diabetes mellitus type 2, un controlled, without complications : How to access health information online Indication:Diabetes mellitus type 2, uncontrolled, without complications Diabetes mellitus type 2, un controlled, without complications : How to access health information online - Detail Indication:Diabetes mellitus type 2, uncontrolled, without complications Diabetes mellitus type 2, un controlled, without complications : Patient Instructions Indication:Diabetes mellitus type 2, uncontrolled, without complications Asthma with acute exacerbati on : Patient Instructions Indication:Asthma with acute exacerbation Arthritis pain, hand : How t o access health information online Indication:Arthritis pain, hand Arthritis pain, hand : How t o access health information online - Detail Indication:Arthritis pain, hand Arthritis pain, hand : Patie nt Instructions Indication:Arthritis pain, hand Weight gain : How to access health information online Indication:Weight gain Weight gain : How to access health information online - Detail Indication:Weight gain Weight gain : Patient Instru ctions Indication:Weight gain BMI 36.0-36.9,adult : Patien t Instructions Indication:BMI 36.0-36.9,adult Cough : How to access health information online Indication:Cough Cough : How to access health information online - Detail Indication:Cough Cough : Patient Instructions Indication:Cough THUMB PAIN : Patient Instruc tions Indication:THUMB PAIN Hyperglyceridemia : Patient Instructions Indication:Hyperglyceridemia BMI 36.0-36.9,adult : obesit y counseling Indication:BMI 36.0-36.9,adult Asthma : Patient Instruction s Indication:Asthma COPD WITH (ACUTE) EXACERBATI ON : Patient Instructions Indication:COPD WITH (ACUTE) EXACERBATION Name Dates Details How to access health informa tion online Indication:Nonsmoker Start:26-May-2018 Instruction Type:Patient Education How to access health informa tion online - Detail Indication:Nonsmoker Start:26-May-2018 Instruction Type:Patient Education Patient Instructions Indication:Nonsmoker Start:26-May-2018 Instruction Type:Provider Instructions for Treatment How to access health informa tion online Indication:Nonsmoker Start:28-Apr-2018 Instruction Type:Patient Education How to access health informa tion online - Detail Indication:Nonsmoker Start:28-Apr-2018 Instruction Type:Patient Education Patient Instructions Indication:Nonsmoker Start:28-Apr-2018 Instruction Type:Provider Instructions for Treatment How to access health informa tion online Indication:Nonsmoker Start:31-Jan-2018 Instruction Type:Patient Education How to access health informa tion online - Detail Indication:Nonsmoker Start:31-Jan-2018 Instruction Type:Patient Education Patient Instructions Indication:Nonsmoker Start:31-Jan-2018 Instruction Type:Provider Instructions for Treatment How to access health informa tion online Indication:BMI 39.0-39.9,adult Start:09-Nov-2017 Instruction Type:Patient Education How to access health informa tion online - Detail Indication:BMI 39.0-39.9,adult Start:09-Nov-2017 Instruction Type:Patient Education Patient Instructions Indication:Right foot pain Start:09-Nov-2017 Instruction Type:Provider Instructions for Treatment How to access health informa tion online Indication:HTN (hypertension), benign Start:15-Sep-2017 Instruction Type:Patient Education How to access health informa tion online - Detail Indication:HTN (hypertension), benign Start:15-Sep-2017 Instruction Type:Patient Education Patient Instructions Indication:HTN (hypertension), benign Start:15-Sep-2017 Instruction Type:Provider Instructions for Treatment How to access health informa tion online Indication:BMI 38.0-38.9,adult Start:12-Aug-2017 Instruction Type:Patient Education How to access health informa tion online - Detail Indication:BMI 38.0-38.9,adult Start:12-Aug-2017 Instruction Type:Patient Education Patient Instructions Indication:BMI 38.0-38.9,adult Start:12-Aug-2017 Instruction Type:Provider Instructions for Treatment How to access health informa tion online Indication:BMI 38.0-38.9,adult Start:12-Oct-2016 Instruction Type:Patient Education How to access health informa tion online - Detail Indication:BMI 38.0-38.9,adult Start:12-Oct-2016 Instruction Type:Patient Education Patient Instructions Indication:Elevated heart rate with elevated blood pressure and diagnosis of hypertension Start:12-Oct-2016 Instruction Type:Provider Instructions for Treatment How to access health informa tion online Indication:Redness of eye, left Start:05-Oct-2016 Instruction Type:Patient Education How to access health informa tion online - Detail Indication:Redness of eye, left Start:05-Oct-2016 Instruction Type:Patient Education Patient Instructions Indication:Redness of eye, left Start:05-Oct-2016 Instruction Type:Provider Instructions for Treatment How to access health informa tion online Indication:BMI 38.0-38.9,adult Start:28-Sep-2016 Instruction Type:Patient Education How to access health informa tion online - Detail Indication:BMI 38.0-38.9,adult Start:28-Sep-2016 Instruction Type:Patient Education Patient Instructions Indication:BMI 38.0-38.9,adult Start:28-Sep-2016 Instruction Type:Provider Instructions for Treatment How to access health informa tion online Indication:Current non-smoker Start:10-Jun-2016 Instruction Type:Patient Education How to access health informa tion online - Detail Indication:Current non-smoker Start:10-Jun-2016 Instruction Type:Patient Education Patient Instructions Indication:Current non-smoker Start:10-Jun-2016 Instruction Type:Provider Instructions for Treatment How to access health informa tion online Indication:Asthma with acute exacerbation Start:08-Jun-2016 Instruction Type:Patient Education How to access health informa tion online - Detail Indication:Asthma with acute exacerbation Start:08-Jun-2016 Instruction Type:Patient Education How to access health informa tion online - Detail Indication:Current non-smoker Start:05-Jun-2016 Instruction Type:Patient Education Patient Instructions Indication:Current non-smoker Start:05-Jun-2016 Instruction Type:Provider Instructions for Treatment How to access health informa tion online Indication:Current non-smoker Start:04-Jun-2016 Instruction Type:Patient Education How to access health informa tion online - Detail Indication:Current non-smoker Start:04-Jun-2016 Instruction Type:Patient Education Patient Instructions Indication:Current non-smoker Start:04-Jun-2016 Instruction Type:Provider Instructions for Treatment How to access health informa tion online Indication:BMI 37.0-37.9, adult Start:01-Jun-2016 Instruction Type:Patient Education How to access health informa tion online - Detail Indication:BMI 37.0-37.9, adult Start:01-Jun-2016 Instruction Type:Patient Education Patient Instructions Indication:BMI 37.0-37.9, adult Start:01-Jun-2016 Instruction Type:Provider Instructions for Treatment How to access health informa tion online Indication:Abnormal lung sounds Start:24-Jun-2015 Instruction Type:Patient Education How to access health informa tion online - Detail Indication:Abnormal lung sounds Start:24-Jun-2015 Instruction Type:Patient Education Patient Instructions Indication:Abnormal lung sounds Start:24-Jun-2015 Instruction Type:Provider Instructions for Treatment How to access health informa tion online Indication:Diabetes mellitus type 2, uncontrolled, without complications Start:12-Jun-2015 Instruction Type:Patient Education How to access health informa tion online - Detail Indication:Diabetes mellitus type 2, uncontrolled, without complications Start:12-Jun-2015 Instruction Type:Patient Education Patient Instructions Indication:Diabetes mellitus type 2, uncontrolled, without complications Start:12-Jun-2015 Instruction Type:Provider Instructions for Treatment Patient Instructions Indication:Asthma with acute exacerbation Start:05-Jun-2015 Instruction Type:Provider Instructions for Treatment How to access health informa tion online Indication:Arthritis pain, hand Start:06-Feb-2015 Instruction Type:Patient Education How to access health informa tion online - Detail Indication:Arthritis pain, hand Start:06-Feb-2015 Instruction Type:Patient Education Patient Instructions Indication:Arthritis pain, hand Start:06-Feb-2015 Instruction Type:Provider Instructions for Treatment How to access health informa tion online Indication:Diabetes mellitus type 2, uncontrolled, without complications Start:14-Dec-2013 Instruction Type:Patient Education How to access health informa tion online - Detail Indication:Diabetes mellitus type 2, uncontrolled, without complications Start:14-Dec-2013 Instruction Type:Patient Education Patient Instructions Indication:Diabetes mellitus type 2, uncontrolled, without complications Start:14-Dec-2013 Instruction Type:Provider Instructions for Treatment How to access health informa tion online Indication:Weight gain Start:16-Nov-2013 Instruction Type:Patient Education How to access health informa tion online - Detail Indication:Weight gain Start:16-Nov-2013 Instruction Type:Patient Education Patient Instructions Indication:Weight gain Start:16-Nov-2013 Instruction Type:Provider Instructions for Treatment Patient Instructions Indication:BMI 36.0-36.9,adult Start:03-Nov-2013 Instruction Type:Provider Instructions for Treatment How to access health informa tion online Indication:Asthma with acute exacerbation Start:20-Oct-2013 Instruction Type:Patient Education How to access health informa tion online - Detail Indication:Asthma with acute exacerbation Start:20-Oct-2013 Instruction Type:Patient Education Patient Instructions Indication:Asthma with acute exacerbation Start:20-Oct-2013 Instruction Type:Provider Instructions for Treatment How to access health informa tion online Indication:Asthma with acute exacerbation Start:20-Sep-2013 Instruction Type:Patient Education How to access health informa tion online - Detail Indication:Asthma with acute exacerbation Start:20-Sep-2013 Instruction Type:Patient Education Patient Instructions Indication:Asthma with acute exacerbation Start:20-Sep-2013 Instruction Type:Provider Instructions for Treatment How to access health informa tion online Indication:Cough Start:30-Aug-2013 Instruction Type:Patient Education How to access health informa tion online - Detail Indication:Cough Start:30-Aug-2013 Instruction Type:Patient Education Patient Instructions Indication:Cough Start:30-Aug-2013 Instruction Type:Provider Instructions for Treatment Patient Instructions Indication:THUMB PAIN Start:20-Dec-2012 Instruction Type:Provider Instructions for Treatment Patient Instructions Indication:Hyperglyceridemia Start:11-Nov-2012 Instruction Type:Provider Instructions for Treatment Patient Instructions Indication:BMI 36.0-36.9,adult Start:06-Oct-2012 Instruction Type:Provider Instructions for Treatment obesity counseling Indication:BMI 36.0-36.9,adult Start:23-Sep-2012 Instruction Type:Provider Instructions for Treatment Patient Instructions Indication:BMI 36.0-36.9,adult Start:23-Sep-2012 Instruction Type:Provider Instructions for Treatment Patient Instructions Indication:BMI 36.0-36.9,adult Start:07-Sep-2012 Instruction Type:Provider Instructions for Treatment obesity counseling Indication:BMI 36.0-36.9,adult Start:24-Aug-2012 Instruction Type:Provider Instructions for Treatment Patient Instructions Indication:BMI 36.0-36.9,adult Start:24-Aug-2012 Instruction Type:Provider Instructions for Treatment obesity counseling Indication:BMI 36.0-36.9,adult Start:10-Aug-2012 Instruction Type:Provider Instructions for Treatment Patient Instructions Indication:Hyperglyceridemia Start:10-Aug-2012 Instruction Type:Provider Instructions for Treatment Patient Instructions Indication:Asthma Start:15-Jul-2012 Instruction Type:Provider Instructions for Treatment Patient Instructions Indication:THUMB PAIN Start:08-Apr-2012 Instruction Type:Provider Instructions for Treatment Patient Instructions Indication:COPD WITH (ACUTE) EXACERBATION Start:17-Feb-2012 Instruction Type:Provider Instructions for Treatment Summary Purpose Family History No Family History Records Found Advance Directives No Advanced Directives Records FoundNo Advanced Directives Records FoundNo Advanced Directives Records Found Additional Source Comments INFORMATION SOURCE (unrecogn ized section and content) DATE CREATED AUTHOR AUTHOR'S ORGANIZ ATION 12/06/2022 [facility] DATE CREATED AUTHOR AUTHOR'S ORGANIZ ATION 01/22/2023 [facility] Source Comments (unrecognize d section and content) In the event this informatio n is protected by the Federal Confidentiality of Alcohol and Drug Abuse Patient Records regulations: The Federal rules restrict any use of the information to criminally investigate or prosecute any alcohol or drug abuse patient.TrihealthIn the event this information is protected by the Federal Confidentiality of Alcohol and Drug Abuse Patient Records regulations: The Federal rules restrict any use of the information to criminally investigate or prosecute any alcohol or drug abuse patient.[facility] Reason for Visit (unrecogniz ed section and content) Reason Comments New Patient Pulmonary Nodule Specialty Diagnoses / Procedures Referred By Lizbet sr Referred To Contact Thoracic Surgery Diagnoses 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 Kriss eLe [facility] [address] [place] [address] [facility] [address] [place] [address] Referral ID Status Reason Start Date Expiration Date V isits Requested Visits Authorized [id number] New Request 03/31/2022 04/25/2023 1 1 Reason Comments Cough Cough and congestion days x5 Care Teams (unrecognized sec tion and content) Automation Controls Specialist Relationship Specialty Start Date End Date Tiffanie Sharma MD [address] [place] [place] [address] PCP - General Family Medicine 04/22/22 Alejandra Hyatt, RN Registered Nurse 04/01/22 Kriss Lee [facility] [address] [place] [address] Oncologist Hematology 04/01/22 Automation Controls Specialist Relationship Specialty Start Date End Date Tiffanie Sharma MD [address] [place] [address] PCP - General Family Medicine 05/12/21 FOR RECORDS PERTAINING TO PATIENTS WHO ARE OR HAVE BEEN ENROLLED IN A CHEMICAL DEPENDENCY/SUBSTANCEABUSE PROGRAM, SOME INFORMATION MAY BE OMITTED. This clinical summary was aggregated from multiple sources. Caution should be exercised in using it in the provision of clinical care. This summary normalizes information from multiple sources, and as a consequence, information in this document may materially change the coding, format and clinical context of patient data. In addition, data may be omitted in some cases. CLINICAL DECISIONS SHOULD BE BASED ON THE PRIMARY CLINICAL RECORDS. [facility]. provides no warranty or guarantee of the accuracy or completeness of information in this document.
== END 2023-03-12 10:54 | disposition home or self-care (01) ==
LOC: MEDOUTP 10:53
PROVIDERS: PCP Family Medicine; Referring Provider Nurse Practitioner Acute Care; Visit Provider Nurse Practitioner Acute Care
DX: J45.41 Moderate persistent asthma with (acute) exacerbation (principal)
CPT/HCPCS: 96372; J2357

== ENCOUNTER → 2023-03-25 | Outpatient (CLI) | payer MEDICARE, OTHER, SELFPAY ==
[2023-03-25 12:43] LABS: Absolute Lymphocyte Count 1.09 X10^3/uL (0.83-4.51); Absolute Neutrophil Count 4.2 X10^3/uL (2.0-7.7); Basophil# 0.03 X10^3/uL; Basophil% 0.5 % (0-1); Hematocrit 42.1 % (37-47); Hemoglobin 13.4 g/dL (12.0-15.0); Lymphocyte # 1.09 X10^3/ul (0.83-4.51); Lymphocyte % 18.8 % (19-41); Mean Corp Hgb Conc 31.8 g/dL (32-36); Mean Corpuscular Hgb 29.7 pg (27.0-32.0); Mean Corpuscular Volume 93.3 fL (81-99); Mean Platelet Vol. 11.6 fl (6.2-12.0); Monocyte# 0.46 X10^3/uL; Monocyte% 7.9 % (0-10); NRBC Flagged by Analyzer 0 % (0-5); Neutrophil # 4.17 X10^3/uL (2.7-7.7); Neutrophil % 72.1 % (47-70); Platelet Count 208 K/mm3 (150-450); RBC Distribution Width CV 14.6 % (11.6-14.6); RBC Distribution Width SD 49.5 fl (35.1-43.9); Red Blood Count 4.51 M/mm3 (4.2-5.4); White Blood Count 5.8 K/mm3 (4.4-11.0)
[2023-03-25 13:28] LABS: ALB/GLOB Ratio 0.9 RATIO (0.9-2.4); AST(SGOT) 20 U/L (15-37); Alanine Aminotransfer ALT/SGPT 24 U/L (13-56); Albumin, Serum 3.4 g/dL (3.2-5.0); Alkaline Phosphatase 83 U/L (45-117); Anion Gap 3 (5-15); BUN 15 mg/dL (7-18); BUN/Creat Ratio 16.8 RATIO (10-20); Calcium,Total 9.3 mg/dL (8.5-10.1); Chloride 107 mmol/L (98-107); Creatinine, Serum 0.89 mg/dL (0.55-1.02); EST Glomerular Filtration Rate 66 mL/min (>60); Est Glom Filt Rate - Afr Amer 80 mL/min (>60); Globulin 3.8 g/dL (2.2-4.2); Glucose 118 mg/dL (74-106); Potassium 3.5 mmol/L (3.5-5.1); Protein, Total 7.2 g/dL (6.4-8.2); Sodium Level 140 mmol/L (136-145)
== END | disposition home or self-care (01) ==
LOC: MTLAB 10:35
PROVIDERS: PCP Family Medicine; Referring Provider Internal Medicine Rheumatology; Visit Provider Internal Medicine Rheumatology
DX: M06.4 Inflammatory polyarthropathy (principal); Z79.899 Other long term (current) drug therapy
CPT/HCPCS: 36415; 80053; 85025

== ENCOUNTER 2023-04-09 10:56 | Outpatient (CLI) | payer MEDICARE, OTHER, SELFPAY ==
[2023-04-09 11:04] VITALS: BP 169/87; PULSE 92; RESP 16; TEMP 35.7; O2SAT 94; BMI 37.4
[2023-04-09] MEDS: Omalizumab 150 MG/ML Syringe 300 MG SC (11:11)
== END 2023-04-09 10:57 | disposition home or self-care (01) ==
LOC: MEDOUTP 10:57
PROVIDERS: PCP Family Medicine; Referring Provider Nurse Practitioner Acute Care; Visit Provider Nurse Practitioner Acute Care
DX: J45.41 Moderate persistent asthma with (acute) exacerbation (principal)
CPT/HCPCS: 96372; J2357

== ENCOUNTER 2023-05-07 10:56 | Outpatient (CLI) | payer MEDICARE, OTHER, SELFPAY ==
[2023-05-07 11:02] VITALS: BP 160/74; PULSE 89; RESP 16; TEMP 35.5; O2SAT 95; BMI 38.2
[2023-05-07] MEDS: Omalizumab 150 MG/ML Syringe 300 MG SQ (11:18)
== END 2023-05-07 10:57 | disposition home or self-care (01) ==
LOC: MEDOUTP 10:57
PROVIDERS: PCP Family Medicine; Referring Provider Nurse Practitioner Acute Care; Visit Provider Nurse Practitioner Acute Care
DX: J45.41 Moderate persistent asthma with (acute) exacerbation (principal)
CPT/HCPCS: 96372; J2357

== ENCOUNTER 2023-05-08 13:53 | Inpatient (IN) | payer MEDICARE, OTHER, SELFPAY ==
[2023-05-08] VITALS (15 sets, daily range): BP systolic 143–233; BP diastolic 74–106; PULSE 77–111; RESP 15–26; TEMP 36.6–37.2; O2SAT 83–99; BMI 40.2; BMI 39.6
--- NOTE | 2023-05-08 14:20 | EKG12_ITS ---
Test Reason : SOB Blood Pressure : / mmHG Vent. Rate : 100 BPM Atrial Rate : 100 BPM P-R Int : 186 ms QRS Dur : 132 ms QT Int : 380 ms P-R-T Axes : 071 057 028 degrees QTc Int : 490 ms Normal sinus rhythm Right bundle branch block BORDERLINE RIGHT ATRIAL ENLARGEMENT Abnormal ECG Confirmed by [place] Collado [id number]), market editor ABIEL ALMARAZ ([id number]) on 05/11/2023 7:23:01 AM Referred By: KACIE Confirmed By:[place] Collado
--- NOTE | 2023-05-08 14:21 | CT_ITS ---
STUDY: CTA CHEST REASON FOR EXAM: Female, 72 years old. Hypoxia RADIATION DOSAGE (If Supplied By Facility): CTDIvol = ( 11.56 ) mGy, DLP = ( 517.83 ) mGycm TECHNIQUE: The examination was performed with the intravenous administration of IV 100mL Isovue-370. Post-processing of the angiographic images was performed, with multiplanar reformation and 3D reconstruction. Individualized dose optimization techniques were used for this CT. COMPARISON: September 08 and January 15, 2023 and PET/CT dated March 25, 2022 FINDINGS: Normal enhancement of the main pulmonary artery and right and left pulmonary arteries. Normal enhancement of the bilateral peripheral pulmonary arteries. There is no demonstrated pulmonary embolism. There is atherosclerotic calcification of the aortic arch and descending thoracic aorta. There is no demonstrated aortic dissection. There are calcifications of the coronary arteries. Normal mediastinum. Normal hilar regions. Normal visualized trachea and bronchi. There are bilateral emphysematous changes. There is a stable 6.6 mm nodule within the left lower lobe (image 99 series 2). There is a stable spiculated subpleural 9.3 mm nodule within the left lower lobe as well (image 141 series 2). There are bilateral groundglass opacities. Normal chest wall structures. There are degenerative changes of the thoracic spine. There is a neurostimulator device in place with leads terminating within the mid thoracic spinal canal. Normal visualized upper abdomen. CT/CTA Chest W/WO Contrast IMPRESSION: No demonstrated pulmonary embolism or arterial dissection. Stable left lower lobe pulmonary nodules measuring up to 9.3 mm. Emphysema. Bilateral groundglass opacities may reflect mild edema Atherosclerosis. Electronically Signed: Christina Fatima MD at 16:18 EST ,
[2023-05-08] MEDS: Albuterol 2.5 MG/3 ML VIAL.NEB. INHALATION (14:27)
[2023-05-08] MEDS: Ipratropium/Albuterol Sulfate 3 ML AMPUL.NEB INHALATION ×2 (14:27→23:11)
--- NOTE | 2023-05-08 14:34 | EDS_ITS ---
<Statement entered by Alejandra Strong MD - 05/08/23 17:42> I have personally performed a face to face assessment of the patient and have reviewed the RAHUL Note. Patient presents secondary to continued shortness of breath. She is a history of COPD and asthma. She has oxygen at home but only uses it with her BiPAP intermittently. She reports a 1 week history of shortness of breath. She is been on doxycycline and prednisone without improvement. On arrival to the emergency room patient is hypoxic in the low 80s on room air. At the time of my exam patient sitting upright in bed in no acute distress. Speaking full sentences. O2 sat is 87% on room air with good waveform. She is placed on 3 L nasal cannula. Head and neck examination unremarkable. Heart is regular rate and rhythm. Lung sounds are grossly clear with good air movement bilaterally. Abdomen is soft and nontender. Lab work largely unremarkable. CTA of the chest was obtained and reveals no evidence of pulmonary embolism. No infiltrate. Given the patient's degree of hypoxia and now reliance on oxygen we will admit patient for further treatment and evaluation. Patient comfortable with the plan. Care discussed with hospitalist. HPI History of Present Illness Chief Complaint: Shortness of Breath Narrative Narrative: Patient is a 72-year-old female with history of concern for lung cancer on the left lower lung, COPD, asthma, significant arthritis requiring a pain pump. Patient presents to the emergency department with 4 to 5 days of generalized feeling of malaise, difficulty breathing. Patient did see a walk-in clinic, patient does have history of hypoxia, patient was 83% when she arrived here today. Patient does have oxygen at home which she wears rarely, mostly at nighttime with her CPAP. Patient is currently on Eliquis, patient states that she has been on doxycycline, prednisone and is not getting better. Patient denies any nausea or vomiting. She denies any recent fever or chills. [facility] Medical History Acute asthma exacerbation Allergic rhinitis Asthma BMI 37.0-37.9, adult COPD (chronic obstructive pulmonary disease) Cough Depression Fatigue HTN (hypertension) Hypothyroidism Hypoxia Pneumonia Postnasal drip Shortness of breath Home Medications levothyroxine 25 mcg tablet 25 mcg PO DAILY 06/10/16 [History Last Taken 05/30/16] montelukast 10 mg tablet 10 mg PO DAILY 06/10/16 [History Last Taken 06/10/16 08:00] rizatriptan 10 mg tablet (Maxalt) 10 mg PO ONCE PRN Migraine Symptoms 05/28/17 [History Last Taken Unknown] zolpidem 10 mg tablet (Ambien) 10 mg PO QHS 05/28/17 [History Last Taken Unknown] Handicap Placcard #1 ea 09/07/17 [Rx Last Taken Unknown] omalizumab 150 mg/mL subcutaneous syringe (Xolair) 300 mg (2 mL) subcut Q4W #2 mL 12/28/19 [Rx Last Taken Unknown] folic acid 20 mg capsule 20 mg PO DAILY 09/03/20 [History Last Taken Unknown] albuterol sulfate 1.25 mg/3 mL solution for nebulization 1.25 mg (3 mL) inhalation Q4H PRN COPD J44.9 #180 vials 07/10/21 [Rx Last Taken Unknown] methotrexate sodium 5 mg tablet 5 mg PO QWEEK 03/05/22 [History Last Taken 02/23/22] apixaban 5 mg tablet (Eliquis) 5 mg PO BID 01/13/23 [History Last Taken Unknown] fluticasone fur. 100 mcg-umeclid 62.5 mcg-vilant 25 mcg inhalat.powder (Trelegy Ellipta) 1 inh inhalation DAILY #60 ea 01/27/23 [Rx Last Taken Unknown] albuterol sulfate 90 mcg/actuation aerosol inhaler (Ventolin HFA) 2 puff inhalation Q4H PRN shortness of breath #1 device 03/18/23 [Rx Last Taken Unknown] doxycycline hyclate 100 mg tablet 100 mg PO BID 05/08/23 [History Last Taken Unknown] hydrocodone-acetaminophen 5-325mg 5mg-325mg 1 tab PO BID PRN PRN pain 05/08/23 [History Last Taken Unknown] metoprolol succinate 50 mg tablet,extended release 24 hr 100 mg PO DAILY 05/08/23 [History Last Taken Unknown] prednisone 10 mg tablet 10 mg PO DAILY 05/08/23 [History Last Taken Unknown] sertraline 50 mg tablet 75 mg PO DAILY 05/08/23 [History Last Taken Unknown] Allergy/AdvReac Type Severity Reaction Status Date / Time No Known Allergies Allergy Verified 05/08/23 13:54 Family History Mother Ovarian cancer Brother Brain cancer Grandmother Breast cancer Surgical History H/O thumb surgery H/O: hysterectomy History of appendectomy History of back surgery TMJ surgery Social History household members: spouse Smoking Status: Former smoker quit date: 03/01/07 pack-years: 40 Tobacco: How many years used: 40 second hand exposure: Yes counseling given: provider counseling alcohol intake: never substance use type: does not use caffeine: Yes Type: coffee Number of servings: 1 ROS ROS ED ROS Narrative Constitutional: Negative for fever, chills, weight loss. Positive generalized weakness Eyes: Negative for vision loss, vision change, double vision ENT: Negative for any sore throat, ear pain, congestion Cardiovascular: Negative for any chest pain, tightness, palpitations Respiratory: Negative for any cough, sputum production, hemoptysis.positive for dyspnea, dyspnea on exertion, orthopnea Gastrointestinal: Negative for any abdominal pain, nausea, vomiting, diarrhea, constipation, blood in stool, blood in vomit : Negative for any urinary frequency, dysuria, retention, blood in urine Muscle skeletal: Negative for any neck pain, back pain Neurological: Negative for any headache, syncope, dizziness Skin: Negative for any rashes, itching, abrasions, lacerations Psychiatric: Negative for any depression, anxiety, stress, suicidal ideation, homicidal ideation Hematologic: Negative for any excessive bruising, easy bleeding EXAM Physical Exam Narrative Exam Narrative: Vital signs reviewed. Patient at rest, slightly hypertensive, patient does take metoprolol which she did take this morning. Patient other vital signs are stable, patient has clear lung sounds, patient's pulse oxygenation is 93 to 94% on room air. HEET: Head normocephalic atraumatic, TMs clear bilaterally. Posterior pharynx is clear, moist mucous membranes. Nares clear bilaterally. Neck: Supple with no lymphadenopathy or tenderness. No signs of meningismus. Cardiac: Regular rate and rhythm no murmurs gallops or rubs, equal peripheral pulses bilaterally. Respiratory: Lungs clear to auscultation bilaterally slight diminished in the bases no significant wheezing.. No chest tenderness. Abdomen: Soft, nontender, nondistended. No abdominal bruit or pulsatile masses. No hepatosplenomegaly Extremities: No peripheral edema, no signs of gross trauma or deformity. Active full range of motion of all extremities. Neuro: Cranial nerves II through XII intact, no focal neurological deficits. Skin: Clean dry and intact with no rash, purpura, petechiae, vesicles or pustules. Backs/flank: No CVA tenderness, no midline spinal tenderness, no deformity. Psych: Normal mood and affect. No SI, HI or acute psychosis. Const Vital Signs: 05/08/23 13:54 05/08/23 14:03 05/08/23 14:28 Temperature 98.9 F Temperature Source Temporal Pulse Rate 111 H 89 Respiratory Rate 26 H 18 Respiratory Effort Normal Non-Labored Respiratory Depth Normal Respiratory Pattern Normal Normal Blood Pressure 233/106 H Blood Pressure Mean 148 Pulse Ox 83 Oxygen Delivery Method Room Air Room Air 05/08/23 14:56 05/08/23 15:00 05/08/23 14:30 Temperature Temperature Source Pulse Rate 89 Respiratory Rate 16 Respiratory Effort Respiratory Depth Respiratory Pattern Blood Pressure 165/84 H Blood Pressure Mean 99 Pulse Ox 89 94 Oxygen Delivery Method Room Air Room Air Room Air 05/08/23 15:45 05/08/23 16:00 05/08/23 16:00 Temperature Temperature Source Pulse Rate 96 95 Respiratory Rate 20 H 15 Respiratory Effort Respiratory Depth Respiratory Pattern Blood Pressure 155/74 H 152/77 H Blood Pressure Mean 94 98 Pulse Ox 87 Oxygen Delivery Method Room Air 05/08/23 14:45 Temperature Temperature Source Pulse Rate Respiratory Rate Respiratory Effort Respiratory Depth Respiratory Pattern Blood Pressure Blood Pressure Mean Pulse Ox 92 Oxygen Delivery Method Room Air Positive well nourished and well developed General Appearance ED: well developed MDM MDM Lab Data Labs: Laboratory Results - last 24 hr 05/08/23 14:30 WBC 10.0 RBC 4.38 Hgb 12.8 Hct 40.7 MCV 92.9 MCH 29.2 MCHC 31.4 L RDW Std Deviation 54.1 H RDW Coeff of Robby 16.0 H Plt Count 265 MPV 10.6 Immature Gran % (Auto) 2.600 H Neut % (Auto) 82.6 H Lymph % (Auto) 6.7 L [place] % (Auto) 7.5 Eos % (Auto) 0.1 Baso % (Auto) 0.5 Absolute Neuts (auto) 8.3 H Absolute Lymphs (auto) 0.67 L Nucleated RBC % 0 Sodium 139 Potassium 3.4 L Chloride 105 Carbon Dioxide 29.0 Anion Gap 5 BUN 16 Creatinine 0.86 Estim Creat Clear Calc 73.99 Est GFR (MDRD) Af Amer 83 Est GFR (MDRD) Non-Af 69 BUN/Creatinine Ratio 18.6 Glucose 129 H Calcium 9.2 Troponin I High Sens 6 B-Natriuretic Peptide 23.7 Radiography Diagnostic Testing: Clinical Impression(s) from Imaging Studies Chest CTA 05/08/23 14:21 IMPRESSION: No demonstrated pulmonary embolism or arterial dissection. Stable left lower lobe pulmonary nodules measuring up to 9.3 mm. Emphysema. Bilateral groundglass opacities may reflect mild edema Atherosclerosis. Electronically Signed: Christina Fatima MD at 16:18 EST , EKG EKG shows a normal sinus rhythm: Attestation: I personally reviewed and interpreted this EKG as follows: Interpretation: Sinus Rhythm Comments: Normal sinus rhythm, right bundle branch block, rate of 100 bpm WI interval 186 ms, QRS duration 132 ms, no acute ST elevation, no acute infarct noted. Treatment and Re-Evaluation :: Differential diagnosis includes however is not limited to: Community-acquired pneumonia, pulmonary embolism, worsening mass, COVID-19, influenza, CHF, ACS, [place] Patient appears to be in no obvious distress while at rest. Patient appears nontoxic, presents to the emergency department for shortness of breath much worse with ambulation. Patient will receive a full cardiac workup, secondary to the patient being as low as 79 to 83% on room air, patient will receive a CTA of the chest. This to be helpful to see if there is any worsening mass, pulmonary embolus, infectious process. COVID-19, influenza will be completed. Patient be given breathing treatments. Patient has already been on doxycycline as well as steroids. All radiologic examinations were read, reviewed by the emergency department attending. From these reads, a plan of care will be put in place. Patient after treatment was taken off oxygen, at rest, patient was 87%.Patient's CBC was unremarkable, chemistries were unremarkable, patient had a negative troponin, negative BNP. Patient CTA of the chest shows no demonstrated pulmonary embolus. No atrial dissection. Stable left lower lobe pulmonary nodule measuring up to 9.3 mm, emphysema, bilateral groundglass opacities which may reflect mild edema. At this time, secondary the patient's continued hypoxia, not a good diagnosis why, I do believe the patient should be admitted to the hospital. I will speak to hospitalist. Patient will be a full admission to [facility]. Patient did ambulate again, patient dropped to 79%. Patient remained stable on 2 L nasal cannula. Stable for admission Discharge Plan Triage Chief Complaint: Shortness of Breath ED Midlevel Provider: Yo Gonzales ED Provider: Alejandra Strong Dx/Rx/DC Orders Clinical Impression: Acute dyspnea, Cough, Hypoxia Prescriptions: No Action rizatriptan [Maxalt] 10 mg tablet 10 mg PO ONCE PRN (Reason: Migraine Symptoms) zolpidem [Ambien] 10 mg tablet 10 mg PO QHS (DME) Handicap Placcard Qty: 1 0RF Rx Instructions: Length of Time: 36 months Xolair 150 mg/mL syringe 300 mg SC Q4W Qty: 2 11RF Patient Comments: last taken 05/05 Rx Instructions: requires multiple injection sites; do not exceed 150 mg per injection site folic acid 20 mg capsule 20 mg PO DAILY albuterol sulfate 1.25 mg/3 mL solution for nebulization 1.25 mg INHALATION Q4H PRN (Reason: COPD J44.9) Qty: 180 6RF methotrexate sodium 5 mg tablet 5 mg PO QWEEK Patient Comments: Saturdays Rx Instructions: Takes 8 tablets Qweek levothyroxine 25 MCG tablet 25 mcg PO DAILY Patient Comments: thyroid montelukast 10 MG tablet 10 mg PO DAILY Patient Comments: allergies Eliquis 5 mg tablet 5 mg PO BID prednisone 10 mg tablet 10 mg PO DAILY metoprolol succinate 50 mg tablet extended release 24 hr 100 mg PO DAILY hydrocodone-acetaminophen 5-325 mg tablet 1 tab PO BID PRN PRN (Reason: pain) doxycycline hyclate 100 mg tablet 100 mg PO BID sertraline 50 mg tablet 75 mg PO DAILY Trelegy Ellipta 100-62.5-25 mcg blister with device 1 inh inhalation DAILY Qty: 60 6RF albuterol sulfate [Ventolin HFA] 90 mcg/actuation HFA aerosol inhaler 2 puff INHALATION Q4H PRN (Reason: shortness of breath) Qty: 1 6RF Primary Care Provider: Tiffanie Sharma Referrals: Tiffanie Sharma MD [Primary Care Provider] - Disposition Disposition: Acute Care [facility]
[2023-05-08 14:56] LABS: Absolute Lymphocyte Count 0.67 X10^3/uL (0.83-4.51); Absolute Neutrophil Count 8.3 X10^3/uL (2.0-7.7); Basophil# 0.05 X10^3/uL; Basophil% 0.5 % (0-1); Eosinophil# 0.01 X10^3/uL; Eosinophils% 0.1 % (0-5); Hematocrit 40.7 % (37-47); Hemoglobin 12.8 g/dL (12.0-15.0); Lymphocyte # 0.67 X10^3/ul (0.83-4.51); Lymphocyte % 6.7 % (19-41); Mean Corp Hgb Conc 31.4 g/dL (32-36); Mean Corpuscular Hgb 29.2 pg (27.0-32.0); Mean Corpuscular Volume 92.9 fL (81-99); Mean Platelet Vol. 10.6 fl (6.2-12.0); Monocyte# 0.75 X10^3/uL; Monocyte% 7.5 % (0-10); NRBC Flagged by Analyzer 0 % (0-5); Neutrophil # 8.26 X10^3/uL (2.7-7.7); Neutrophil % 82.6 % (47-70); Platelet Count 265 K/mm3 (150-450); RBC Distribution Width SD 54.1 fl (35.1-43.9); Red Blood Count 4.38 M/mm3 (4.2-5.4)
[2023-05-08 15:17] LABS: Anion Gap 5 (5-15); BUN 16 mg/dL (7-18); BUN/Creat Ratio 18.6 RATIO (10-20); Calcium,Total 9.2 mg/dL (8.5-10.1); Chloride 105 mmol/L (98-107); Creatinine, Serum 0.86 mg/dL (0.55-1.02); EST Glomerular Filtration Rate 69 mL/min (>60); Est Glom Filt Rate - Afr Amer 83 mL/min (>60); Estimated Creatinine Clearance 73.99 ml/min; Glucose 129 mg/dL (74-106); Potassium 3.4 mmol/L (3.5-5.1); Sodium Level 139 mmol/L (136-145); Troponin-I HS 6 pg/mL (3.0-54.0)
--- OUTSIDE RECORDS SUMMARY | 2023-05-08 15:21 | XMS RPT_ITS | CCD ---
Author Name Unknown Address [address] [place] [address] Organization [facility] Care Team Providers Care Computer Science Instructor Name Role Phone Eileen Harrison Unavailable Unavailable Eileen Harrison Unavailable Unavailable Mathew AIR CONDITIONING UNIT ASSEMBLER, Eileen Little Unavailable Unavaila ble Nataly Escobar Unavailable Unavailable Nataly Escobar Unavailable Unavailable Yensho AIR CONDITIONING UNIT ASSEMBLER, Marla A Unavailable Unavailab le Eileen Harrison Unavailable Unavailable Yensho AIR CONDITIONING UNIT ASSEMBLER, Marla A Unavailable Unavailab le Ele Astudillo Unavailable Christina Cordero Unavailable [phone] Andrea Pete Unavailable Getachew Padron Unavailable El Miller Unavailable [facility] Unavailable Ele Astudillo Unavailable El Tyler Unavailable Unavailable Amadou Jackson Unavailable iMchelle Prince Unavailable Polly Corea Unavailable Delphine Ramirez Unavailable Unavailable Gracie Lind Unavailable Unavailable Jose, Omayra Unavailable Unavailable Sheri Stanley Unavailable Unavailable AMITA Mena Unavailable Unavailable Delphine Rivera Unavailable Unavailable eliecer braden Unavailable Unavailable Unavailable Unavailable Yensho AIR CONDITIONING UNIT ASSEMBLER, Marla A Unavailable Unavailab le Ele Astudillo Attending Unavailable Ele Astudillo Referring Unavailable Baudilio, Ele Consulting Unavailable Ele Astudillo Unavailable JaneenChristina whatley Lety Unavailable Andrea Pete Unavailable Getachew Padron Unavailable El Miller Unavailable [facility] Unavailable Ele Astudillo Unavailable El Tyler [...] Provider Alejandra Hyatt RN Unavailable Unavailable Isckarus [facility], Mansour S Unavailable Tiffanie Sharma MD Primary Care Provider Tiffanie Sharma MD Primary Care Provider ANDREA LAURA Referring Unavailable ANDREA LAURA Attending Unavailable TIFFANIE SHARMA Primary Care Unavailable ISCKARUS, MANSOUR S Referring Unavailable ANDREA LAURA Attending Unavailable TIFFANIE SHARMA Primary Care Unavailable TIFFANIE SHARMA Primary Care Unavailable TIFFANIE SHARMA Primary Care Unavailable ALLYSSA SINGLETARY Referring Unavailable TIFFANIE SHARMA Primary Care Unavailable Allergies Allergy Classification Reported Allergen(s) Allergy Type Date of Onset Reaction(s) Facility (4 sources) Seasonal allergy; Translations: [SEASONAL ALLERGIES] Propensity to adverse reactions 8 Intolerance [facility] Work Phone: NEGATED: Highlighted row has been ruled out! (1 source) allergy to substance 08-22-201 4 [facility] Work Phone: NEGATED: [...] AEPB One puff INH BID ACLIDINIUM BROMIDE [id number] Twan Maynard DO Problems Active Problems Problem [...] Time Vital Sign Value Performing Clinician Facility 05-02-2023 11:31-0500 Body temperature 97.5 [degF] Eileen Phillips STEM SIZER.RN PROVIDER RELATIONS Work Phone: [facility] 05-02-2023 11:31-0500 Body weight 109.32 kg Eileen Phillips STEM SIZER.RN PROVIDER RELATIONS Work Phone: [facility] 05-02-2023 11:31-0500 Diastolic blood pressure 88 mm[Hg] Eileen Phillips STEM SIZER.RN PROVIDER RELATIONS Work Phone: [facility] 05-02-2023 11:31-0500 Heart rate 100 /min Eileen Phillips STEM SIZER.RN PROVIDER RELATIONS Work Phone: [facility] 05-02-2023 11:31-0500 Respiratory rate 22 /min Eileen Phillips STEM SIZER.RN PROVIDER RELATIONS Work Phone: [facility] 05-02-2023 11:31-0500 SaO2% (BldA) [Mass fraction] 91 % Eileen Phillips STEM SIZER.RN PROVIDER RELATIONS Work Phone: [facility] 05-02-2023 11:31-0500 Systolic blood pressure 130 mm[Hg] Eileen Phillips STEM SIZER.RN PROVIDER RELATIONS Work Phone: [facility] 12-03-2022 10:07-0400 Body temperature 97.81 [degF] Allyssa Singletary STEM SIZER.RN PROVIDER RELATIONS Work Phone: [facility] 12-03-2022 10:07-0400 Body weight 109.86 kg Allyssa Singletary STEM SIZER.RN PROVIDER RELATIONS Work Phone: [facility] 12-03-2022 10:07-0400 Diastolic blood pressure 82 mm[Hg] Allyssa Singletary STEM SIZER.RN PROVIDER RELATIONS Work Phone: [facility] 12-03-2022 10:07-0400 Heart rate 82 /min Allyssa Singletary STEM SIZER.RN PROVIDER RELATIONS Work Phone: [facility] 12-03-2022 10:07-0400 Respiratory rate 16 /min Allyssa Singletary STEM SIZER.RN PROVIDER RELATIONS Work Phone: [facility] 12-03-2022 10:07-0400 SaO2% (BldA) [Mass fraction] 95 % Allyssa Singletary STEM SIZER.RN PROVIDER RELATIONS Work Phone: [facility] 12-03-2022 10:07-0400 Systolic blood pressure 126 mm[Hg] Allyssa Singletary STEM SIZER.RN PROVIDER RELATIONS Work Phone: [facility] 04-22-2022 11:46-0500 Diastolic blood pressure 68 mm[Hg] Andrea Laura MD Work Phone: [facility] 04-22-2022 11:46-0500 Heart rate 80 /min Andrea Laura MD Work Phone: [facility] 04-22-2022 11:46-0500 Systolic blood pressure 140 mm[Hg] Andrea Laura MD Work Phone: [facility] 04-22-2022 11:10-0500 Body height 165.1 cm Andrea Laura MD Work Phone: [facility] 04-22-2022 11:10-0500 Body mass index (BMI) [Ratio] 39.97 kg/m2 Andrea Laura MD Work Phone: [facility] 04-22-2022 11:10-0500 Body temperature 98.2 [degF] Andrea Laura MD Work Phone: [facility] 04-22-2022 11:10-0500 Body weight 108.95 kg Andrea Laura MD Work Phone: [facility] 04-22-2022 11:10-0500 Respiratory rate 18 /min Andrea Laura MD Work Phone: [facility] 04-22-2022 11:10-0500 SaO2% (BldA) [Mass fraction] 95 % Andrea Laura MD Work Phone: [facility] 02-17-2022 10:45-0500 Body temperature 97.39 [degF] Allyssa Hayder STEM SIZER.RN PROVIDER RELATIONS Work Phone: [facility] 02-17-2022 10:45-0500 Body weight 110.68 kg Allyssa Hayder STEM SIZER.RN PROVIDER RELATIONS Work Phone: [facility] 02-17-2022 10:45-0500 Diastolic blood pressure 88 mm[Hg] Allyssa Hayder STEM SIZER.RN PROVIDER RELATIONS Work Phone: [facility] 02-17-2022 10:45-0500 Heart rate 96 /min Allyssa Hayder STEM SIZER.RN PROVIDER RELATIONS Work Phone: [facility] 02-17-2022 10:45-0500 Respiratory rate 20 /min Allyssa Hayder STEM SIZER.RN PROVIDER RELATIONS Work Phone: [facility] 02-17-2022 10:45-0500 SaO2% (BldA) [Mass fraction] 92 % Allyssa Hayder STEM SIZER.RN PROVIDER RELATIONS Work Phone: [facility] 02-17-2022 10:45-0500 Systolic blood pressure 172 mm[Hg] Allyssa Hayder STEM SIZER.RN PROVIDER RELATIONS Work Phone: [facility] 08-08-2018 14:39-0400 BMI (Body Mass Index) 40.94 kg/m2 Ele Astudillo [facility] Work Phone: 08-08-2018 14:39-0400 Body Temperature 96.9 [degF] Ele Astudillo [facility] Work Phone: Encounters Encounter Date Encounter Type Care Provider Facility Start: 05-02-2023 End: [facility] Start: 05-02-2023 End: 05-02-2023 Patient encounter procedure Eileen Phillips STEM SIZER.RN PROVIDER RELATIONS Work Phone: [facility] Procedures Date Procedure Procedure Detail Performing Clinician Start: 12-03-2022 Radiologic exam chest 2 views Allyssa Singletary STEM SIZER.RN PROVIDER RELATIONS Work Phone: Start: 02-17-2022 Radiologic exam chest 2 views Allyssa King STEM SIZER.RN PROVIDER RELATIONS Work Phone: Start: 09-28-2018 End: 09-28-2018 Pulmonary Visit Report Comments: See Note; NOTES: [facility] [place] [address] [place] [address] OFFICE VISIT Date of Service: 09/28/18 MR#: [id number] Acct: [id number] Name: TEAGAN VAUGHAN Rep #: [id number] : 1950 Provider: INDIRA Butts Age/Sex: 67/F Location: [facility].PMW Status: Signed Assessment AND Plan 1. Asthma-COPD [...] Vital Signs09/28/18 Body Mass Index (BMI) 40.9 07/31/19 Height 5 ft 5 in 09/28/18 Weight: 230 lb Intake Visit Reasons: 3 M FU [facility] Vendor: [employer] Accompanied by: Self Allergies No Known Allergies [...] HS #30 cap 09/28/18 [Rx Confirmed 09/28/18] PFSH Medical History BMI 37.0-37.9, adult (Chronic) [...] Z68.37 09/28/18 0915 <Electronically signed by Marta Butts YARD HOSTLER-C> Date Marta Butts NP-C Cosigner Signature: Date (if applicable) CC: Ele Pendleton Start: 09-23-2018 End: 09-23-2018 6 Minute Walk Test Comments: See Note; NOTES: [facility] Pulmonary Services/Neurology [address] [place] [address] MR#: [id number] Acct: [id number] Name: TEAGAN VAUGHAN Rep #: [id number] : 1950 67 From: Woody Galvez MD Referring Dr: Twan Maynard DO Status: REG CLI Location: PSN Date: Sex: F C PSN 6 Minute Walk Test - 6 Minute Walk Test 6 Minute Walk Test: 6 Minute Walk Test PSN:6-Minute Walk Test Start: 09/23/18 09:23 Freq: Status: Active Protocol: RESP.6MINW Document 09/23/18 09:23 [facility] (Rec: 09/23/18 09:31 [facility] [id number]) 6 Minute Walk Test Date Performed 09/23/18 [...] WITH HER OWN PORTABLE O2 TANK FROM [employer]. TEST BEGAN ON ROOM AIR. PATIENT PLACED [...] Woody Galvez MD CC: Date Dictated: 09/23/18 110 Date Transcribed: 09/23/181102 Dandy Operator: Woody Galvez MD Signed Ele Astudillo Start: 06-16-2018 End: 06-16-2018 Pulmonary Visit Report Comments: See Note; NOTES: [facility] Pulmonary Medicine [address] [place] [address] OFFICE VISIT Date of Service: 06/16/18 MR#: [id number] Acct: [id number] Name: TEAGAN VAUGHAN Rep #: [id number] : 1950 Provider: Twan Maynard D.O. Age/Sex: 67/F Location: [facility].PMW Status: Signed Assessment AND Plan 1. Asthma-COPD overlap syndrome J44.9 Plan The patient does appear to have an overlap between stage III COPD and asthma. She is currently on maximal inhaler therapy. She is already completed pulmonary rehab. Although her last walking oximetry study in 2018 showed the need for 2 L/min of [...] full facemask and receives her equipment through [employer]. Today, the patient reports continued shortness of [...] lb Intake Visit Reasons: 6 M FU [facility] Vendor: [employer] Accompanied by: Self Allergies No Known Allergies [...] 08/23/17 [Rx Confirmed 06/16/18] Handicap Placcard #1 [id number] 09/07/17 [Rx Confirmed 06/16/18] fluticasone propionate 50 mcg/actuation nasal spray,suspension 2 spray INTRANASAL QDAY #16 g 11/10/17 [Rx Confirmed 06/16/18] budesonide-formoterol HFA 160 mcg-4.5 mcg/actuation aerosol inhaler 2 puff PO BID #1 device 01/06/18 [Rx Confirmed 06/16/18] albuterol sulfate HFA 90 mcg/actuation aerosol inhaler 2 puff INHALATION Q4H PRN #1 device 02/24/18 [Rx Confirmed 06/16/18] PFSH Medical History BMI 37.0-37.9, adult (Chronic) [...] with cough, No chest congestion, Yes cough (YARD HOSTLER), No chest tightness, No pain on inspiration, [...] min 3 Views Comments: See Note; NOTES: [facility] Imaging Services [address] [place] [address] Foot min 3 Views MR#: [id number] Acct: [id number] Name: TEAGAN VAUGHAN Nelson Rep #: [id number] : 1950 F 66 From: Gabriela Ruiz MD PCP: Ele Astudillo DO Status: REG CLI Study: Foot min 3 Views Date of Exam: 11/09/17 Exam# [id number] Ordering Dr: Delphine Rivera YARD HOSTLER-C STUDY: X-RAY - RIGHT FOOT CLINICAL: Female, [...] , CC: INDIRA Rivera; Ele Astudillo DO Dandy Operator: Signed Delphine Rivera Start: 11-03-2017 End: 11-03-2017 Pulmonary Visit Report Comments: See Note; NOTES: [facility] [place] [address] [facility] [address] [place] [address] OFFICE VISIT Date of Service: 11/03/17 MR#: [id number] Acct: [id number] Name: TEAGAN VAUGHAN Rep #: [id number] : 1950 Provider: Marta Butts Age/Sex: 66/F Location: [facility].PMW Status: Signed Assessment AND Plan 1. ISIDRO [...] Pap Chief Complaint: Daytime hypersomnia DME Vendor: [employer] Accompanied by: Self Allergies No Known Allergies [...] 08/23/17 [Rx Confirmed 09/07/17] Handicap Placcard #1 [id number] 09/07/17 [Rx Confirmed 09/07/17] [facility] Medical History BMI 37.0-37.9, adult (Chronic) Hypothyroidism [...] Affect: Positive normal affect Immunizations flu vacc 2016-(65yr up)-MF59C(PF) 45 mcg(15 mcgx3)/0.5 mL IM syringe Performing Provider: INDIRA Cisneros Administered by: Marla Covarrubias on 11/03/17 08:23 Dose Route Admin Location Lot Number Expiration Date NDC Private Duty Rn 0.5 mL IM Left Deltoid [id number] 05/30/18 08454-024-71 SEQ[employer] VIS Given Date VIS Publication Date 11/03/17 10/05/14 Eligibility Eligibility Date Coding Level of Care Code Off vis,est,level 3 Diagnoses ISIDRO (obstructive sleep apnea) G47.33 Stage 3 severe COPD by GOLD classification J44.9 11/03/17 0844 <Electronically signed by Marta JACOBSON> Date Marta VILAC Cosigner Signature: Date (if applicable) CC: Ele Pendleton Start: 10-27-2017 End: 10-27-2017 SC - Individual Treatment Plan Comments: See Note; NOTES: [facility] Pulmonary Rehab Reports [address] [place] [address] SC - Individual Treatment Plan MR#: [id number] Acct: [id number] Name: TEAGAN VAUGHAN Rep #: [id number] : 1950 66 From: Raf Bryson ASSISTANT ACCOUNT MANAGER, MEDICAL REGISTRAR, BS PCP: Ele Astudillo DO Exercise - [...] demo correct for verbalize when to call Psychosocial - Final Assess - Assessment Depression [...] 10/22/17 1405 <Electronically signed by Raf Bryson CRT, RCP, [...] and modality and progress per protocol. 10/27/17 2821<Electronically signed by Pablo Meadows MD> Cosigner Signature: Date Pablo Meadows MD CC: Signed Ele Astudillo Start: 10-19-2017 End: 10-19-2017 SC - Individual Treatment Plan Comments: See Note; NOTES: [facility] Pulmonary Rehab Reports [address] [place] [address] SC - Individual Treatment Plan MR#: [id number] Acct: [id number] Name: TEAGAN VAUGHAN Rep #: [id number] : 1950 66 From: Raf Bryson ASSISTANT ACCOUNT MANAGER, MEDICAL REGISTRAR, BS PCP: Ele Astudillo DO Exercise - [...] 0918 <Electronically signed by Raf Bryson CRT, WAYNE, CHRISTINA> Date Raf Bryson CRT, RCP, CHRISTINA [...] Comments: See Note; NOTES: Pulmonary Medicine of [address] [place] [address] OFFICE VISIT Date of Service: 09/07/17 MR#: [id number] Acct: [id number] Name: TEAGAN VAUGHAN Nelson Rep #: [id number] : 1950 Provider: Twan Maynard D.O. Age/Sex: 66/F Location: [facility].PMW Status: Signed Assessment AND Plan 1. Stage [...] full facemask and receives her equipment through [employer]. She denies the presence of chest tightness or wheezing. She does have a mild, intermittently productive cough, which she attributes to her allergies. She continues to receive weekly allergy immunotherapy injections. Her weight has been stable. She denies fevers, chills or night sweats. Intake Vital Signs09/07/17 Height 5 ft 5 in 09/07/17 Weight: 239 lb Intake Visit Reasons: 3 M FU [employer] Analyst Required: No DME Vendor: [employer] Accompanied by: Self Is patient in pain?: [...] 08/23/17 [Rx Confirmed 09/07/17] Handicap Placcard #1 [id number] 09/07/17 [Rx Confirmed 09/07/17] [facility] Medical History BMI 37.0-37.9, adult (Chronic) Hypothyroidism [...] CC: Ele Pendleton Start: 08-23-2017 End: 08-23-2017 SC - Individual Treatment Plan Comments: See Note; NOTES: [facility] Pulmonary Rehab Reports [address] [place] [address] SC - Individual Treatment Plan MR#: [id number] Acct: [id number] Name: TEAGAN VAUGHAN Rep #: [id number] : 1950 66 From: Raf Bryson ASSISTANT ACCOUNT MANAGER, MEDICAL REGISTRAR, BS PCP: Ele Astudillo DO Exercise - [...] and modality and progress per protocol. 08/23/17 1975<Electronically signed by Yo Rutledge MD> Cosigner Signature: Date Yo Rutledge MD CC: Signed Ele Astudillo Start: 07-30-2017 End: 07-30-2017 SC - Individual Treatment Plan Comments: See Note; NOTES: [facility] Pulmonary Rehab Reports [address] [place] [address] SC - Individual Treatment Plan MR#: [id number] Acct: [id number] Name: TEAGAN VAUGHAN Rep #: [id number] : 1950 66 From: Raf Bryson ASSISTANT ACCOUNT MANAGER, MEDICAL REGISTRAR, BS PCP: Ele Astudillo DO General Information [...] Comments: See Note; NOTES: Pulmonary Medicine of [address] [place] [address] OFFICE VISIT Date of Service: 07/13/17 MR#: [id number] Acct: [id number] Name: TEAGAN VAUGHAN Rep #: [id number] : 1950 Provider: Marta Butts Age/Sex: 66/F [facility] Status: Signed Assessment AND Plan 1. Daytime [...] 07 follow-up appointment. Orders Orders: Medications New: vaoddfgmfzp-usukqfdgb-kfalax er 100-62.5-25 mcg (Trelegy Ellipta) 1 inh [...] of systems. She has not used any gvxb-uda-qknkixy medications in addition to prescription medications for [...] QDAY #1 device 07/13/17 [Rx Confirmed 07/13/17] [facility] Medical History BMI 37.0-37.9, adult (Chronic) Hypothyroidism [...] J96.11 07/13/17 1447 <Electronically signed by Marta VILAC> Date Marta Butts NP-C Cosigner Signature: Date (if applicable) CC: Ele Pendleton Start: 06-24-2017 End: 06-24-2017 Pulmonary Function Test Comments: See Note; NOTES: [facility] Pulmonary Services/Neurology [address] [place] [address] MR#: [id number] Acct: [id number] Name: TEAGAN VAUGHAN Rep #: [id number] : 1950 66 From: Twan Maynard DO Referring Dr: Twan Maynard D.O. Status: REG I Ordering Dr: Date: Location: [facility] Sex: F C INTRODUCTION: The patient is [...] Maynard D.O.; Ele Astudillo DO Date Dictated: 06/24/171300 Date Transcribed: 06/24/171300 Dandy Operator: DB Signed Ele Astudillo Start: 06-18-2017 End: 06-18-2017 6 Minute Walk Test Comments: See Note; NOTES: [facility] Pulmonary Services/Neurology [address] [facility] [place] [address] MR#: [id number] Acct: [id number] Name: TEAGAN VAUGHAN Rep #: [id number] : 1950 66 From: Woody Galvez MD Referring Dr: Twan Maynard D.O. Date: Ordering Dr: Sex: F C Location: PSN PSN 6 Minute Walk Test - 6 Minute Walk Test 6 Minute Walk Test: 6 Minute Walk Test PSN:6-Minute Walk Test Start: 06/18/17 09:45 Freq: Status: Active Protocol: RESP.6MINW Document 06/18/17 09:45 [facility] (Rec: 06/18/17 09:51 [facility] [id number]) 6 Minute Walk Test Date Performed 06/18/17 [...] using 2 L/min with any exertion. 06/18/17 3976 <Electronically signed by Woody Galvez MD> Date Woody Galvez MD CC: Date Dictated: 06/18/17 1501 Date Transcribed: 06/18/171500 Dandy Operator: Woody Galvez Signed Ele Astudillo Start: 06-14-2017 End: 06-14-2017 SC - History AND Physical Comments: See Note; NOTES: [facility] Pulmonary Rehab Reports [address] [place] [address] SC - History AND Physical MR#: [id number] Acct: [id number] Name: TEAGAN VAUGHAN Rep #: [id number] : 1950 66 From: Raf Bryson ASSISTANT ACCOUNT MANAGER, MEDICAL REGISTRAR, BS PCP: Ele Astudillo DO History of [...] Advanced Directives - Advanced Directives Power of Clinical Documentation Developer: Yes Living Will: Yes Advance Directives Information [...] = Denies (Slash). Left click = Reports ([place]) Respiratory: Reports: Appetite, Normal, Sleep, Normal. Denies: [...] 41 06/14/17 1321 <Electronically signed by Raf Bryson CRT, RCP, [...] and modality and progress per protocol. 06/14/17 8936<Electronically signed by Yo Rutledge MD> Manjinderer Signature: Date Yo Rutledge MD CC: Signed Ele Baudilio Start: 06-14-2017 End: 06-14-2017 SC - Individual Treatment Plan Comments: See Note; NOTES: [facility] Pulmonary Rehab Reports [address] [place] [address] SC - Individual Treatment Plan MR#: [id number] Acct: [id number] Name: TEAGAN VAUGHAN Rep #: [id number] : 1950 66 From: Raf Bryson ASSISTANT ACCOUNT MANAGER, MEDICAL REGISTRAR, BS PCP: Ele Astudillo DO General Information [...] 1419 <Electronically signed by Raf Bryson CRT, WAYNE, CHRISTINA> Date Raf Bryson CRT, WAYNE, CHRISTINA Outcome assessment reviewed. Exercise plan approved [...] Rutledge MD CC: Signed Ele Astudillo Start: 06-01-2017 End: 06-01-2017 Pulmonary Visit Report Comments: See Note; NOTES: Pulmonary Medicine of [address] [place] [address] OFFICE VISIT Date of Service: 06/01/17 MR#: [id number] Acct: [id number] Name: TEAGAN VAUGHAN Rep #: [id number] : 1950 Provider: Twan Maynard D.O. Age/Sex: 66/F Location: [facility].PMW Status: Signed Assessment AND Plan 1. COPD [...] Q24H #1 device 06/01/17 [Rx Confirmed 06/01/17] [facility] Medical History BMI 37.0-37.9, adult (Chronic) Hypothyroidism [...] Cosigner Signature: Date (if applicable) CC: Ele Astudillo DO Ele Astudillo Start: 09-09-2016 End: 12-02-2016 DMEddie Butts RN PROVIDER RELATIONS Work Phone: Start: 09-09-2016 End: 12-02-2016 Follow Up Appt 3 months Marta waddell RN PROVIDER RELATIONS Work Phone: Start: 08-14-2016 End: 08-14-2016 Echocardiogram Complete Comments: See Note; NOTES: [facility] Cardiovascular Services [address] [place] [address] Echo Complete 08/14/16 1107 MR#: [id number] Acct: [id number] Name: TEAGAN VAUGHAN Rep #: [id number] : 1950 65 From: Jase Post MD Attending Dr: Twan Maynard D.O. Status: REG I Ordering Dr: Twan Maynard DO Date: 08/14/16 Location: [facility] Sex: F C Admitted: Reason For Study: [...] 1454 Date Jase Post MD CC: Twan Maynard D.O.; Elebeth Astudillo DO Date Dictated: 08/14/16 1107 Date Transcribed: 08/14/16 1454 Dandy Operator: Signed Ele Astudillo Start: 08-12-2016 End: 12-02-2016 DMB Rebeca Acevedo YARD HOSTLER Work Phone: Start: 08-12-2016 End: 08-13-2016 ENT Referral Rebeca Radha Curtis YARD HOSTLER Work Phone: Start: 08-12-2016 End: 12-02-2016 Follow Up Appt 3 months Rebeca Acevedo YARD HOSTLER Work Phone: Start: 08-12-2016 End: 08-13-2016 ENT Referral Rebeca Radha Curtis YARD HOSTLER Work Phone: Start: 07-30-2016 End: 08-03-2016 *RASTZONE8 Allergens,Zone8 [id number] Twan Maynard DO Work Phone: Start: 07-30-2016 End: 12-02-2016 [facility] Twan Maynard DO Work Phone: Start: 07-30-2016 End: 12-02-2016 Echo tthrc r-t 2d w/wom-mode compl spec&colr d Twan Maynard DO Work Phone: Start: 07-30-2016 End: 12-02-2016 Follow Up Appt 6 weeks Twan Maynard DO Work Phone: Start: 07-30-2016 End: 08-03-2016 IgE [Mass/volume] in Serum Twan Maynard DO Work Phone: Start: 07-30-2016 End: 08-03-2016 *RASTZONE8 Allergens,Zone8 [id number] Twannelson Maynard DO Work Phone: Start: 07-30-2016 End: 08-03-2016 Globulin Twan Maynard DO Work Phone: Start: 07-30-2016 End: 08-03-2016 IgE [Mass/volume] in Serum Twan Maynard DO Work Phone: Start: 07-22-2016 End: 07-22-2016 Pulmonary Function Report Comp Comments: See Note; NOTES: [facility] Pulmonary Services/Neurology [address] [place] [address] Pulmonary Function Test (Comp) MR#: [id number] Acct: [id number] Name: TEAGAN VAUGHAN Rep #: [id number] : 1950 65 From: Twan Maynard DO Referring Dr: Marta Butts YARD HOSTLER Status: REG CLI Ordering Dr: Marta Butts YARD HOSTLER-C Date: 07/21/16 Location: [facility] Sex: F C DATE OF SERVICE: 07/21/2016 [...] C: Referring Provider . T: NTS JOB: [id number] 07/22/16 1052 <Electronically signed by Twan Maynard DO> Date Twan Maynard DO CC: Marta Butts; Twan Maynard D.O.; Ele Astudillo DO Date Dictated: 07/21/16 154 Date Transcribed: 07/21/161542 Dandy Operator: Signed Ele Astudillo Start: 07-07-2016 End: 07-08-2016 6 Minute Walk Test Comments: See Note; NOTES: [facility] Pulmonary Services/Neurology [address] [place] [address] MR#: [id number] Acct: [id number] Name: TEAGAN VAUGHAN Rep #: [id number] : 1950 65 From: Twan Maynard DO Referring Dr: Marta Butts NP Date: Ordering Dr: Sex: F C Location: PSN PSN 6 Minute Walk Test - 6 Minute Walk Test 6 Minute Walk Test: 6 Minute Walk Test PSN:6-Minute Walk Test Start: 07/07/16 11:21 Freq: Status: Active Document 07/07/16 11:00 HG (Rec: 07/07/16 11:24 HG [id number]) 6 Minute Walk Test Date Performed 07/07/16 [...] Date Dictated: 07/07/16 1509 Date Transcribed: 07/07/16 1509 Dandy Operator: Twan Maynard DO Signed Ele Astudillo Start: 06-29-2016 End: 07-07-2016 CHUYITA Butts CNP Work Phone: Start: 06-29-2016 End: 07-07-2016 Follow Up Appt 1 month Marta villa CNP Work Phone: Start: 06-29-2016 End: 07-07-2016 Pulmonary Function Test - complete Marta Butts CNP Work Phone: Start: 06-29-2016 End: 07-07-2016 Pulmonary stress test/simple Marta Butts CNP Work Phone: Start: 06-29-2016 End: 07-07-2016 CHUYITA Butts CNP Work Phone: Start: 06-29-2016 End: 07-07-2016 Follow Up Appt 1 month Marta villa CNP Work Phone: Start: 06-29-2016 End: 07-07-2016 Pulmonary Function Test - complete Marta Butts RN PROVIDER RELATIONS Work Phone: Start: 06-29-2016 End: 07-07-2016 Pulmonary stress test/simple Marta Butts RN PROVIDER RELATIONS Work Phone: Start: 06-10-2016 End: 06-10-2016 Chest PA and Lateral Comments: See Note; NOTES: [facility] Imaging Services [address] [address] Verdana 4d Chest PA and Lateral MR#: [id number] Acct: [id number] Name: TEAGAN VAUGHAN Rep #: [id number] : 1950 F 65 From: Lanie Lee MD PCP: Ele Astudillo DO Status: REG ER Study: Chest PA and Lateral Date of Exam: 06/10/16 Exam# [id number] Ordering Dr: Cailin Elizabeth MD STUDY: X-RAY [...] Service support , CC: Cailin Elizabeth MD; lEe Astudillo DO Dandy Operator: Signed Ele Astudillo Start: 06-01-2016 End: 06-02-2016 Cerv Spine 2 or 3 Views Comments: See Note; NOTES: [facility] Imaging Services [address] [place] [address] Verdana 4d Cerv Spine 2 or 3 Views MR#: [id number] Acct: [id number] Name: TEAGAN VAUGHAN Rep #: [id number] : 1950 F 65 From: Leonardo Canada MD PCP: Ele Astudillo DO Status: REG CLI Study: Cerv Spine 2 or 3 Views Date of Exam: 06/01/16 Exam# [id number] Ordering Dr: Ele Astudillo DO STUDY: X-RAY [...] at 1:25 EDT Tel , Service support [phone], CC: Ele Astudillo DO Dandy Operator: Signed Ele Astudillo Work Phone: Start: 06-01-2016 End: 06-02-2016 Shoulder min 2 Views Comments: See Note; NOTES: [facility] Imaging Services [address] [place] [address] Verdana 4d Shoulder min 2 Views MR#: [id number] Acct: [id number] Name: TEAGAN VAUGHAN Rep #: [id number] : 1950 F 65 From: Leonardo Canada MD PCP: Ele Astudillo DO Status: REG CLI Study: Shoulder min 2 Views Date of Exam: 06/01/16 Exam# [id number] Ordering Dr: Ele Astudillo DO STUDY: X-RAY [...] at 6:17 EDT Tel , Service support [phone], CC: Ele Astudillo DO Dandy Operator: Signed Ele Astudillo Work Phone: Start: 06-24-2015 End: 06-24-2015 Spmtry w/vc expiratory humphrey w/wo mxml vol vntj _ Ele Astudillo Work Phone: Plan of Treatment Date Care Activity Detail Author Start: 04-30-2023 Covid-19 Vaccine () Covid-19 Vaccine () [facility] Start: 03-01-2023 Advance Directive Discussion Advance Directive Discussion [facility] Start: 03-01-2023 Depression Assessment Depression Assessment [facility] Start: 02-24-2023 Screening for malignant neoplasm of colon COLORECTAL CANCER SCREENING DISCUSSION [facility] Start: 10-30-2022 Influenza vaccination Influenza Vaccine (#1) [facility] Start: 03-01-2022 Advance Directive Discussion Advance Directive Discussion [facility] Start: 03-01-2022 Depression Assessment Depression Assessment [facility] Start: 02-24-2022 Covid-19 Vaccine (6 - Moderna risk series) Covid-19 Vaccine (6 - Moderna risk series) [facility] Start: 02-06-2022 Screening for malignant neoplasm of breast MAMMOGRAM SCREENING DISCUSSION [facility] Start: 01-20-2022 COVID-19 VACCINE (2 - Pfizer series) COVID-19 VACCINE (2 - Pfizer series) [facility] Start: 03-01-2021 ADVANCE DIRECTIVE DISCUSSION ADVANCE DIRECTIVE DISCUSSION [facility] Start: 03-01-2021 DEPRESSION ASSESSMENT DEPRESSION ASSESSMENT [facility] Start: 08-08-2018 Thyrotropin Qn TSH (41519) [facility] Work Phone: Start: 08-08-2018 Comprehensive metabolic panel METABOLIC PANEL, COMPREHENSIVE (43447) [facility] Work Phone: Start: 08-08-2018 Blood count complete auto&auto difrntl wbc CBC W/AUTO DIFF WBC (84472) [facility] Work Phone: Start: 08-08-2018 Procedure Education Eprescribed prescriptions (G8553) [facility] Work Phone: Start: 08-08-2018 Provider Instructions for Treatment [facility] Work Phone: Start: 05-26-2018 Procedure Education Eprescribed prescriptions (G8553) [facility] Work Phone: Start: 05-26-2018 Provider Instructions for Treatment [facility] Work Phone: Start: 04-28-2018 Patient Education [facility] Work Phone: Start: 04-28-2018 Procedure Education Eprescribed prescriptions (G8553) [facility] Work Phone: Start: 04-28-2018 Provider Instructions for Treatment [facility] Work Phone: Start: 01-31-2018 T4 free mass conc T4, FREE (THYROXINE) (02284) [facility] Work Phone: Start: 01-31-2018 T3 free mass conc T3, FREE (TRIDOTHYRONINE) (98807) [facility] Work Phone: Start: 01-31-2018 Thyrotropin Qn TSH (19207) [facility] Work Phone: Start: 01-31-2018 Urnls dip stick/tablet reagent auto microscopy URINALYSIS, W/ MICRO (44141) [facility] Work Phone: Start: 01-31-2018 Urine albumin quantitative MICROALBUMIN: CREATININE RATIO (47923) AND (21308) [facility] Work Phone: Start: 01-31-2018 Comprehensive metabolic panel METABOLIC PANEL, COMPREHENSIVE (90004) [facility] Work Phone: Start: 01-31-2018 Lipid panel LIPID PANEL (42697) [facility] Work Phone: Start: 01-31-2018 Blood count complete auto&auto difrntl wbc CBC W/AUTO DIFF WBC (78311) [facility] Work Phone: Start: 01-31-2018 [...] 06-01-2017 Appointment Appointment [facility] Work Phone: Start: 12-02-2016 End: 12-02-2016 D[facility] Work Phone: Start: 12-02-2016 End: 12-02-2016 Follow Up Appt 6 months Follow Up Appt 6 months [facility] Work Phone: Start: 12-02-2016 End: 12-02-2016 Appointment Appointment [facility] Work Phone: Start: 11-24-2016 BONE DENSITY BONE DENSITY [facility] Start: 11-24-2016 Bone Density Screening Bone Density Screening [facility] Start: 11-24-2016 Screening for osteoporosis Bone Density Screening [facility] Start: 10-12-2016 Procedure Education Eprescribed prescriptions (G8553) [facility] Work Phone: Start: 10-12-2016 Provider Instructions for Treatment [facility] Work Phone: Start: 10-05-2016 Procedure Education Eprescribed prescriptions (G8553) [facility] Work Phone: Start: 10-05-2016 Provider Instructions for Treatment [facility] Work Phone: Start: 09-28-2016 Patient Education [facility] Work Phone: Start: 09-28-2016 Procedure Education Eprescribed prescriptions (G8553) [facility] Work Phone: Start: 09-28-2016 Provider Instructions for Treatment Follow up in 2 weeks [facility] Work Phone: Start: 09-09-2016 End: 12-02-2016 [facility] Work Phone: Start: 09-09-2016 End: 12-02-2016 Follow Up Appt 3 months Follow Up Appt 3 months [facility] Work Phone: Start: 09-09-2016 End: 09-09-2016 Appointment Appointment [facility] Work Phone: Start: 09-09-2016 End: 09-09-2016 Appointment Appointment [facility] Work Phone: Start: 09-09-2016 End: 09-09-2016 [facility] Work Phone: Start: 09-09-2016 End: 09-09-2016 Follow Up Appt 3 months Follow Up Appt 3 months [facility] Work Phone: Start: 08-12-2016 End: 12-02-2016 [facility] Work Phone: Start: 08-12-2016 End: 08-12-2016 ENT Referral ENT Referral Jared Peñaloza, [address] [place] [address], [id number] [facility] Work Phone: Start: 08-12-2016 End: 12-02-2016 Follow Up Appt 3 months Follow Up Appt 3 months [facility] Work Phone: Start: 08-12-2016 End: 08-12-2016 Appointment Appointment [facility] Work Phone: Start: 08-12-2016 End: 08-12-2016 [facility] Work Phone: Start: 08-12-2016 End: 08-13-2016 ENT Referral ENT Referral Jared Peñaloza, [address] [place] [address], [id number] [facility] Work Phone: Start: 08-12-2016 End: 08-12-2016 Follow Up Appt 3 months Follow Up Appt 3 months [facility] Work Phone: Start: 07-30-2016 End: 08-03-2016 *RASTZONE8 Allergens,Zone8 [id number] *RASTZONE8 Allergens,Zone8 [id number] [facility] Work Phone: Start: 07-30-2016 End: 12-02-2016 [facility] Work Phone: Start: 07-30-2016 End: 12-02-2016 Echo tthrc r-t 2d w/wom-mode compl spec&colr d Echo Complete with Color Flow [facility] Phone: Start: 07-30-2016 End: 12-02-2016 Follow Up Appt 6 weeks Follow Up Appt 6 weeks [facility] Work Phone: Start: 07-30-2016 End: 08-03-2016 Globulin *MAXINE Immunoglobulin E (IgE) [facility] Work Phone: Start: 07-30-2016 End: 08-03-2016 IgE mass conc (S) *MAXINE Immunoglobulin E (IgE) [facility] Work Phone: Start: 07-30-2016 End: 07-30-2016 Appointment Appointment [facility] Work Phone: Start: 07-30-2016 End: 08-03-2016 *RASTZONE8 Allergens,Zone8 [id number] *RASTZONE8 Allergens,Zone8 [id number] [facility] Work Phone: Start: 07-30-2016 End: 07-30-2016 [facility] Work Phone: Start: 07-30-2016 End: 07-30-2016 Follow Up Appt 6 weeks Follow Up Appt 6 weeks [facility] Work Phone: Start: 07-30-2016 End: 08-03-2016 Globulin *MAXINE Immunoglobulin E (IgE) [facility] Work Phone: Start: 07-30-2016 End: 08-03-2016 IgE mass conc (S) *MAXINE Immunoglobulin E (IgE) [facility] Work Phone: Start: 07-30-2016 End: 07-30-2016 Tte w/doppler, complete Echo Complete with Color Flow [facility] Work Phone: Start: 07-15-2016 SHINGRIX VACCINE (1 of 2) SHINGRIX VACCINE (1 of 2) [facility] Start: 07-15-2016 Zoster vaccine hzv live for subcutaneous use ZOSTER (SHINGLES) VACCINE (2 of 3) [facility] Start: 06-29-2016 End: 07-07-2016 D[facility] D[facility] Work Phone: Start: 06-29-2016 End: 07-07-2016 Follow Up Appt 1 month Follow Up Appt 1 month [facility] Work Phone: Start: 06-29-2016 End: 07-07-2016 Pulmonary Function Test - complete Pulmonary Function Test - complete [facility] Work Phone: Start: 06-29-2016 End: 07-07-2016 Pulmonary stress test/simple Pulmonary stress testing; simple (eg, 6-minute walk) [facility] Work Phone: Start: 06-29-2016 End: 07-07-2016 CHU[facility]ITA [facility] Work Phone: Start: 06-29-2016 End: 07-07-2016 Follow Up Appt 1 month Follow Up Appt 1 month [facility] Work Phone: Start: 06-29-2016 End: 07-07-2016 Pulmonary Function Test - complete Pulmonary Function Test - complete [facility] Work Phone: Start: 06-29-2016 End: 07-07-2016 Pulmonary stress test/simple Pulmonary stress testing; simple (eg, 6-minute walk) [facility] Work Phone: Start: 06-08-2016 Procedure Education Eprescribed [...] A1c/Hemoglobin.total mass fraction (Bld) HgA1C , Office (32857) [facility] Work Phone: Start: 06-12-2015 Glucose mass conc Blood Glucose , Office (98780) [facility] Work Phone: Start: 06-05-2015 [...] Start: 11-03-2013 Rheumatoid factor quantitative RHEUMATOID FACTOR-QUANT (04624) test code 023913 [facility] Work Phone: Start: 11-03-2013 Extractable nuclear antigen antibody any method [facility] Work Phone: Start: 11-03-2013 Protein mass conc [facility] Work Phone: Start: 11-03-2013 Dna antibody [place]/double stranded DNA ANTIBODY-NATV/DBL ST (52596) test code 484464 [facility] Work Phone: Start: 10-20-2013 [...] T3 free mass conc T3, FREE (TRIDOTHYRONINE) (93435) [facility] Work Phone: Start: 11-11-2012 T4 free mass conc T4, FREE (THYROXINE) (01871) [facility] Work Phone: Start: 11-11-2012 Thyrotropin Qn TSH (99759) [facility] Work Phone: Start: 11-11-2012 Lipid panel LIPID PANEL (30539) [facility] Work Phone: Start: 10-06-2012 Patient [...] Phone: Start: 08-10-2012 Lipid panel LIPID PANEL (58753) [facility] Work Phone: Start: 07-15-2012 Patient Education Asthma: asthma [facility] Work Phone: Start: 07-15-2012 Provider [...] 05-13-2010 Fibrin dgradj products d-dimer quantitative D-Dimer (78268) [facility] Work Phone: Immunizations Immunization Date Immunization Notes Care Provider Seble kincaid 01-02-2022 influenza virus vacc ine, unspecified formulation Allyssa Singletary STEM SIZER.RN PROVIDER RELATIONS Work Phone: [facility] 12-26-2018 pneumococcal polysaccharide vaccine, 23 valent Allyssa Singletary STEM SIZER.RN PROVIDER RELATIONS Work Phone: [facility] 12-26-2018 Seasonal trivalent influenza vaccine, adjuvanted, preservative free Allyssa Singletary STEM SIZER.RN PROVIDER RELATIONS Work Phone: [facility] 12-15-2016 pneumococcal conjuga te vaccine, 13 valent Allyssa Singletary STEM SIZER.RN PROVIDER RELATIONS Work Phone: [facility] 05-20-2016 zoster vaccine, live Duncan Singletary STEM SIZER.RN PROVIDER RELATIONS Work Phone: [facility] 05-20-2016 zoster vaccine, unspecified formulation Andrea Laura MD Work Phone: [facility] Payers Date Payer Category Payer Unknown 2018 Medicare [id number] 2018 Private Health Insurance [facility] [id number] 2018 Private Health Insurance [employer] A ETNA MEDICARE SUPPLEMENT [id number] 2018-Present [phone] [address] [address] [place] [address] Indemnity [id number] 2016 Medicare [id number] 2016 Medicare [id number] 2005 Unknown [id number] 1950 Unknown [id number] 1950 Unknown [id number] 1950 Unknown [id number] 1950 Unknown [id number] Social History Date Type Detail Facility Start: 02-06-2020 End: 12-03-2022 Caffeine Use Former smoker [facility] Work Phone: Clinical Notes 02-17-2022 to 05-02-2023 Eileen Phillips APRN.CNP - 05/02/2023 11:37 AM ESTAllyssa Napier APRN.CNP - 12/03/2022 10:17 AM DARWIN Sanchez - 04/22/2022 11:00 AM EST Note Date & Type Note Facility 05-02-2023 Note HNO ID: [id number] Author: EILEEN PHILLIPS APRN.RN PROVIDER RELATIONS Service: ? Author Type: Nurse Practitioner Type: Progress Notes Filed: 05/02/2023 11:53 Note Text: This note was created using NoteWriter. Subjective Teagan Vaughan is a 72 year old female. 72 year old female with PMH COPD, asthma, and thyroid presents for illness. Acute onst approximately one week ago + headache +fever +chills +cough Productive sputum +fatigue Winded and hard to take deep breath at times. +wheezing Denies body aches Denies CP The history is provided by the patient. No language pathologist was used. URI She complains of cough, shortness of breath, sputum production and wheezing. There is no chest tightness, difficulty breathing, frequent throat clearing, hemoptysis or hoarse voice. This is a new problem. The current episode started in the past 7 days. The problem occurs constantly. The problem has been gradually worsening. The cough is productive of sputum. Associated symptoms include ear congestion, a fever, headaches, malaise/fatigue, nasal congestion and rhinorrhea. Pertinent negatives include no appetite change, chest pain, dyspnea on exertion, ear pain, heartburn, myalgias, postnasal drip, sneezing, sore throat, sweats, trouble swallowing or weight loss. Her symptoms are aggravated by nothing. Her symptoms are alleviated by nothing. Her past medical history is significant for asthma and COPD. There is no history of bronchiectasis, bronchitis, emphysema or pneumonia. PAST MEDICAL HISTORY Diagnosis Date Asthma PAST SURGICAL HISTORY Procedure Laterality Date APPENDECTOMY PAST SURGICAL HISTORY OF TMJ TOTAL ABDOMINAL HYSTERECT W/WO RMVL TUBE OVARY ALLERGIES Seasonal Allergies MEDICATIONS ELIQUIS 5 mg tab(s) Take 1 tablet by mouth every 12 hours. TRELEGY ELLIPTA 100-62.5-25 mcg inhalation powder inhale 1 puff by mouth and into the lungs once daily folic acid 1 mg tablet Take 2 mg by mouth once daily. hydrOXYchloroQUINE (PLAQUENIL) 200 mg tablet Take 200 mg by mouth twice daily. methotrexate 2.5 mg tablet Take 6 tablets by mouth one time a week. montelukast (SINGULAIR) 10 mg tablet Take 10 mg by mouth daily at bedtime. metoprolol tartrate, short acting, (LOPRESSOR) 50 mg tablet Take 50 mg by mouth twice daily. Nebulizer 1 Units every 6 hours as needed (wheezing or SOB). NEBULIZER FOR HOME USE. DX: acute bronchitis, asthma levothyroxine (SYNTHROID) 25 mcg tablet Take 25 mcg by mouth daily before breakfast. albuterol HFA (VENTOLIN HFA) 90 mcg/Actuation INHALATION inhaler Inhale 2 Puffs as instructed every 6 hours as needed. doxycycline (VIBRA-TABS) 100 mg tablet Take 1 tablet by mouth two times a day for 10 days. predniSONE (DELTASONE) 10 mg tablet Take 4 tabs daily for 3 days, then 2 tabs daily for 3 days, then 1 tab daily for 3 days with food. gabapentin (NEURONTIN) 300 mg capsule (Patient not taking: Reported on 05/02/2023) lansoprazole (PREVACID) 15 mg capsule Take 15 mg by mouth once daily. (Patient not taking: Reported on 05/02/2023) ACLIDINIUM BROMIDE (TUDORZA PRESSAIR INHALATION) Inhale as instructed. (Patient not taking: Reported on 05/02/2023) albuterol (PROVENTIL) 2.5 mg /3 mL (0.083 %) nebulizer solution Use 3 mL via nebulizer every 6 hours as needed for Wheezing/Shortness of Breath. 1 vial contains 3 ml. budesonide-formoterol (SYMBICORT) 160-4.5 mcg/actuation inhaler Inhale 2 Puffs as instructed twice daily. (Patient not taking: Reported on 05/02/2023) FAMILY HISTORY Problem Relation Age of Onset Cancer Mother ovarian COPD Father Breast Cancer Maternal Grandmother Social History Tobacco Use Smoking status: Former Types: Cigarettes Smokeless tobacco: Never Substance Use Topics Alcohol use: No Drug use: No Review of Systems Constitutional: Positive for fever and malaise/fatigue. Negative for appetite change and weight loss. HENT: Positive for congestion and rhinorrhea. Negative for ear pain, hoarse voice, postnasal drip, sneezing, sore throat and trouble swallowing. Eyes: Negative for pain, discharge, redness and itching. Respiratory: Positive for cough, sputum production, chest tightness, shortness of breath and wheezing. Negative for hemoptysis. Cardiovascular: Negative for chest pain and dyspnea on exertion. Gastrointestinal: Negative for abdominal pain, diarrhea, heartburn, nausea and vomiting. Musculoskeletal: Negative for myalgias. Skin: Negative for color change, pallor and rash. Allergic/Immunologic: Negative for environmental allergies, food allergies and immunocompromised state. Neurological: Positive for headaches. Negative for dizziness and facial asymmetry. Hematological: Negative for adenopathy. Does not bruise/bleed easily. Psychiatric/Behavioral: Negative for agitation and behavioral problems. Objective BP 130/88 Pulse 100 Temp 36.4 ?C (97.5 ?F) Resp 22 Wt 109.3 kg (241 lb) SpO2 91% BMI 38.90 (more content not included)... [facility] 05-02-2023 History of Present illness Narrative This note was created using Heliaeriter. Subjective Teagan Vaughan is a 72 year old female. 72 year old female with PMH COPD, asthma, and thyroid presents for illness. Acute onst approximately one week ago + headache +fever +chills +cough Productive sputum +fatigue Winded and hard to take deep breath at times. +wheezing Denies body aches Denies CP The history is provided by the patient. No language pathologist was used. URI She complains of cough, shortness of breath, sputum production and wheezing. There is no chest tightness, difficulty breathing, frequent throat clearing, hemoptysis or hoarse voice. This is a new problem. The current episode started in the past 7 days. The problem occurs constantly. The problem has been gradually worsening. The cough is productive of sputum. Associated symptoms include ear congestion, a fever, headaches, malaise/fatigue, nasal congestion and rhinorrhea. Pertinent negatives include no appetite change, chest pain, dyspnea on exertion, ear pain, heartburn, myalgias, postnasal drip, sneezing, sore throat, sweats, trouble swallowing or weight loss. Her symptoms are aggravated by nothing. Her symptoms are alleviated by nothing. Her past medical history is significant for asthma and COPD. There is no history of bronchiectasis, bronchitis, emphysema or pneumonia. PAST MEDICAL HISTORY Diagnosis Date Asthma PAST SURGICAL HISTORY Procedure Laterality Date APPENDECTOMY PAST SURGICAL HISTORY OF TMJ TOTAL ABDOMINAL HYSTERECT W/WO RMVL TUBE OVARY ALLERGIES Seasonal Allergies MEDICATIONS ELIQUIS 5 mg tab(s) Take 1 tablet by mouth every 12 hours. TRELEGY ELLIPTA 100-62.5-25 mcg inhalation powder inhale 1 puff by mouth and into the lungs once daily folic acid 1 mg tablet Take 2 mg by mouth once daily. hydrOXYchloroQUINE (PLAQUENIL) 200 mg tablet Take 200 mg by mouth twice daily. methotrexate 2.5 mg tablet Take 6 tablets by mouth one time a week. montelukast (SINGULAIR) 10 mg tablet Take 10 mg by mouth daily at bedtime. metoprolol tartrate, short acting, (LOPRESSOR) 50 mg tablet Take 50 mg by mouth twice daily. Nebulizer 1 Units every 6 hours as needed (wheezing or SOB). NEBULIZER FOR HOME USE. DX: acute bronchitis, asthma levothyroxine (SYNTHROID) 25 mcg tablet Take 25 mcg by mouth daily before breakfast. albuterol HFA (VENTOLIN HFA) 90 mcg/Actuation INHALATION inhaler Inhale 2 Puffs as instructed every 6 hours as needed. doxycycline (VIBRA-TABS) 100 mg tablet Take 1 tablet by mouth two times a day for 10 days. predniSONE (DELTASONE) 10 mg tablet Take 4 tabs daily for 3 days, then 2 tabs daily for 3 days, then 1 tab daily for 3 days with food. gabapentin (NEURONTIN) 300 mg capsule (Patient not taking: Reported on 05/02/2023) lansoprazole (PREVACID) 15 mg capsule Take 15 mg by mouth once daily. (Patient not taking: Reported on 05/02/2023) ACLIDINIUM BROMIDE (TUDORZA PRESSAIR INHALATION) Inhale as instructed. (Patient not taking: Reported on 05/02/2023) albuterol (PROVENTIL) 2.5 mg /3 mL (0.083 %) nebulizer solution Use 3 mL via nebulizer every 6 hours as needed for Wheezing/Shortness of Breath. 1 vial contains 3 ml. budesonide-formoterol (SYMBICORT) 160-4.5 mcg/actuation inhaler Inhale 2 Puffs as instructed twice daily. (Patient not taking: Reported on 05/02/2023) FAMILY HISTORY Problem Relation Age of Onset Cancer Mother ovarian COPD Father Breast Cancer Maternal Grandmother Social History Tobacco Use Smoking status: Former Types: Cigarettes Smokeless tobacco: Never Substance Use Topics Alcohol use: No Drug use: No Review of Systems Constitutional: Positive for fever and malaise/fatigue. Negative for appetite change and weight loss. HENT: Positive for congestion and rhinorrhea. Negative for ear pain, hoarse voice, postnasal drip, sneezing, sore throat and trouble swallowing. Eyes: Negative for pain, discharge, redness and itching. Respiratory: Positive for cough, sputum production, chest tightness, shortness of breath and wheezing. Negative for hemoptysis. Cardiovascular: Negative for chest pain and dyspnea on exertion. Gastrointestinal: Negative for abdominal pain, diarrhea, heartburn, nausea and vomiting. Musculoskeletal: Negative for myalgias. Skin: Negative for color change, pallor and rash. Allergic/Immunologic: Negative for environmental allergies, food allergies and immunocompromised state. Neurological: Positive for headaches. Negative for dizziness and facial asymmetry. Hematological: Negative for adenopathy. Does not bruise/bleed easily. Psychiatric/Behavioral: Negative for agitation and behavioral problems. Objective BP 130/88 Pulse 100 Temp 36.4 C (97.5 F) Resp 22 Wt 109.3 kg (241 lb) SpO2 91% BMI 38.90 kg/m Physical Exam Vitals and nursing note reviewed. Constitutional: General: She is not in acute distress. Appearance: Normal appearance. She is obese. She is not ill-appearing, toxic-appearing or diaphoretic. HENT: Head: Normocephalic and atraumatic. Right Ear: Ear canal and external ear normal. Left Ear: Ear canal and external ear normal. Ears: Comments: Bilateral moderate congestion noted. TM visible Nose: Congestion present. No rhinorrhea. Mouth/Throat: Mouth: Mucous membranes are moist. Pharynx: No oropharyngeal exudate or posterior oropharyngeal erythema. Eyes: General: Right eye: No discharge. Left eye: No discharge. Extraocular Movements: Extraocular movements intact. Conjunctiva/sclera: Conjunctivae normal. Pupils: Pupils are equal, round, and reactive to light. Cardiovascular: Rate and Rhythm: Normal rate and regular rhythm. Pulses: Normal pulses. Heart sounds: Normal heart sounds. No murmur heard. No friction rub. Pulmonary: Effort: Pulmonary effort is normal. No respiratory distress. Breath sounds: No stridor. Wheezing and rhonchi present. No rales. Chest: Chest wall: No tenderness. Abdominal: General: Abdomen is flat. There is no distension. Palpations: Abdomen is soft. There is no mass. Tenderness: There is no abdominal tenderness. There is no right CVA tenderness, left CVA tenderness, guarding or rebound. Hernia: No hernia is present. Musculoskeletal: General: No swelling, tenderness, deformity or signs of injury. Normal range of motion. Cervical back: Normal range of motion and neck supple. No rigidity. Right lower leg: No edema. Left lower leg: No edema. Lymphadenopathy: Cervical: Cervical adenopathy present. Skin: General: Skin is warm and dry. Coloration: Skin is not jaundiced or pale. Findings: No bruising, erythema, lesion or rash. Neurological: General: No focal deficit present. Mental Status: She is alert and oriented to person, place, and time. Cranial Nerves: No cranial nerve deficit. Sensory: No sensory deficit. Motor: No weakness. Coordination: Coordination normal. Gait: Gait normal. Psychiatric: Mood and Affect: Mood normal. Behavior: Behavior normal. Thought Content: Thought content normal. Judgment: Judgment normal. Assessment and Plan ASSESSMENT/PLAN: 1. Asthma with COPD with exacerbation (HCC) ([facility]) - ICD9: 493.22, ICD10: J44.1, J45.901 (primary diagnosis) - Flare up related to viral illness. +rhonchi and wheeze NO CXR available - Continue current medications - Exacerbation treatment of prednisone taper - Avoidance of triggers recommended - RX Doxycyline 2. URI, acute - ICD9: 465.9, ICD10: J06.9 - Symptomatic treatment with prn analgesia - Supportive care with fluids and rest - The patient may also use OTC cough and cold meds as needed, warm salt water gargles, throat lozenges and/or OTC throat spray as needed, and nasal saline gtts and suction prn. - Follow up in 3-5 days if symptoms persist or sooner if worsening of symptoms - Declines viral testing Eileen Phillips APRN.RN PROVIDER RELATIONS documented in this encounter [facility] 12-03-2022 Note HNO ID: [id number] Author: Ivis Pascual RT(R) Service: Radiology Author [...] RT Renetta(R) December 03, 2022 11:05 AM [facility] 12-03-2022 Note HNO ID: [id number] Author: Allyssa Singletary APRN.CNP Service: ? Author Type: Nurse Practitioner Type: [...] abnormality. Dictated by : MD Allyssa ROBINS APRN.RN PROVIDER RELATIONS [facility] 12-03-2022 Instructions Allyssa Singletary APRN.CHELLY - [...] 100 MG TABLET documented in this encounter [facility] 12-03-2022 History of Present illness Narrative Subjective [...] abnormality. Dictated by : MD Allyssa ROBINS APRN.RN PROVIDER RELATIONS documented in this encounter [facility] 04-22-2022 History and physical note Images from the original note were not included. History and Physical Patient: Teagan Vaughan Date: 04/22/2022 11:27 AM Attending Physician: Andrea Laura MD Chief Complaint: left lower lobe NSCLC HPI: Teagan Vaughan is a 71 y.o. female never smoker with a past medical history significant for COPD who is referred to our office by Dr. Jose (Wilder) for a new diagnosis of left lower [...] limits her activity. She denies history of OR, stroke, blood thinners, chest surgery, pneumothorax, or [...] Inject under the skin once a week. niiboznpnwy-jofjtsrge-Hjxyrn 100-62.5-25 MCG/ACT Aerosol Powder, breath activated inhaler [...] discussed with Andrea Laura MD. Renuka Meadows APRN-CHELLY #[id number] Associated attestation - Andrea Laura MD [...] accurately reflects our care. Andrea Laura MD [facility] 04-22-2022 History and physical note Images from the original note were not included. History and Physical Patient: Teagan Vaughan Date: 04/22/2022 11:27 AM Attending Physician: Andrea Laura MD Chief Complaint: left lower lobe NSCLC HPI: Teagan Vaughan is a 71 y.o. female never smoker with a past medical history significant for COPD who is referred to our office by Dr. Jose (Wilder) for a new diagnosis of left lower [...] limits her activity. She denies history of OR, stroke, blood thinners, chest surgery, pneumothorax, or [...] Inject under the skin once a week. oazqnnqwxaz-hdgvrrvxx-Jveqec 100-62.5-25 MCG/ACT Aerosol Powder, breath activated inhaler [...] care discussed with Andrea Laura MD. Renuka Meadows, STEM SIZER-RN PROVIDER RELATIONS #[id number] Associated attestation - Andrea Laura MD - 04/27/2022 12:12 AM EST Thoracic Surgery Attending I saw and examined Teagan Vaughan today with my RAHUL, Renuka Meadows APRN-CHELLY. Teagan Vaughan is a 71 y.o. female [...] Andrea Laura MD documented in this encounter [facility] 02-17-2022 History of Present illness Narrative Subjective [...] - patient awaiting lung ct results with quality analyst. Allyssa Singletary APRN.CNP documented in this encounter [facility] Malignant neoplasm of lower lobe of left lung- Primary Preoperative evaluation to rule out surgical contraindication Other specified pre-operative examination Other specified diabetes mellitus without complication, without long-term current use of insulin Hypertension, unspecified type [facility] Sinobronchitis- Primary Unspecified sinusitis (chronic) Rhonchi at both lung bases [facility] Diagnosis Asthma with COPD with exacerbation (HCC) (HCC)- Primary Chronic obstructive asthma with exacerbation URI, acute Acute upper respiratory infections of unspecified site documented in this encounter [facility] Instructions Name Dates Details BMI 39.0-39.9,adult : [...] content) DATE CREATED AUTHOR AUTHOR'S ORGANIZ ATION 01/22/2023 [facility] DATE CREATED AUTHOR AUTHOR'S ORGANIZ ATION 05/03/2023 [facility] Source Comments (unrecognize d section and content) In the event this informatio n is protected by the Federal Confidentiality of Alcohol and Drug Abuse Patient Records regulations: The Federal rules restrict any use of the information to criminally investigate or prosecute any alcohol or drug abuse patient.[facility] the event this information is protected by the Federal Confidentiality of Alcohol and Drug Abuse Patient Records regulations: The Federal rules restrict any use of the information to criminally investigate or prosecute any alcohol or drug abuse patient.[facility] the event this information is protected by the Federal Confidentiality of Alcohol and Drug Abuse Patient Records regulations: The Federal rules restrict any use of the information to criminally investigate or prosecute any alcohol or drug abuse patient.[facility] Reason for Visit (unrecogniz ed section and content) Reason Comments New Patient Pulmonary Nodule Specialty Diagnoses / Procedures Referred By Lizbet sr Referred To Contact Thoracic Surgery Diagnoses 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 Kriss Lee, [facility] [address] [place] [address] [facility] [address] [place] [address] Referral ID Status Reason Start Date Expiration Date V isits Requested Visits Authorized [id number] New Request 03/31/2022 04/25/2023 1 1 Reason Comments Cough Cough and congestion days x5 Reason Comments Fever JONES, body chills, cou gh x 6 days Care Teams (unrecognized sec tion and content) Computer Science Instructor Relationship Specialty Start Date End Date Tiffanie Sharma MD [address] [place] [address] PCP - General Family Medicine 04/22/22 Alejandra Hyatt, RN Registered Nurse 04/01/22 Rosa Yesicaabdullahi Orlin, [facility] [address] [place], [place] [id number] Oncologist Hematology 04/01/22 Computer Science Instructor Relationship Specialty Start Date End Date Tiffanie Sharma MD [address] [place] [address] PCP - General Family Medicine 05/12/21 Computer Science Instructor Relationship Specialty Start Date End Date Tiffanie Sharma MD [address] [place], [place] [id number] PCP - General Family Medicine 05/12/21 FOR [...] BE BASED ON THE PRIMARY CLINICAL RECORDS. [facility] [employer] [facility]. provides no warranty or guarantee of the accuracy or completeness of information in this document.
[2023-05-08 15:23] LABS: BNP,B-Type NATRIURETIC PEPTIDE 23.7 pg/mL (0-100)
--- NOTE | 2023-05-08 16:48 | ED.RN ---
Pt walked to brp without O2, 94% on RA, upon return pt was 74% slow to recover and sob. Placed on 3L.
--- NOTE | 2023-05-08 16:49 | NURSING ---
MED SURG ANGELA DYSPNEA, HYPOXIA, COUGH
--- NOTE | 2023-05-08 17:11 | PCM.HP.STD ---
HPI - General General Date of Admission: 05/08/23 Date of Service: 05/08/23 Chief Complaint: Worsening shortness of breath HPI Narrative SURAJ VAUGHAN, is a 72 F with history of COPD on triple therapy with Trelegy, ISIDRO, malignant neoplasm of lower lobe of left lung, recent DVT, depression who presents to the ED with worsening shortness of breath since last 1 week. It was associated with cough but she received doxycycline and the cough has responded to that, she was also prescribed oral steroids at the time but could not get it due to her recent course of steroids for joint pains at the time. There is cough without any expectoration, no fevers. CT scan was suggestive of emphysema, bilateral groundglass opacities, but no pulmonary embolism. [facility] Medical History (Updated 05/08/23 @ 18:11 by Moises Roldan) Acute asthma exacerbation Allergic rhinitis Asthma BMI 37.0-37.9, adult COPD (chronic obstructive pulmonary disease) Cough Depression Fatigue HTN (hypertension) Hypothyroidism Hypoxia Pneumonia Postnasal drip Shortness of breath Spinal cord stimulator status Home Medications levothyroxine 25 mcg tablet 25 mcg PO DAILY 06/10/16 [History Last Taken 05/30/16] montelukast 10 mg tablet 10 mg PO DAILY 06/10/16 [History Last Taken 06/10/16 08:00] rizatriptan 10 mg tablet (Maxalt) 10 mg PO ONCE PRN Migraine Symptoms 05/28/17 [History Last Taken Unknown] zolpidem 10 mg tablet (Ambien) 10 mg PO QHS 05/28/17 [History Last Taken Unknown] Handicap Placcard #1 ea 09/07/17 [Rx Last Taken Unknown] omalizumab 150 mg/mL subcutaneous syringe (Xolair) 300 mg (2 mL) subcut Q4W #2 mL 12/28/19 [Rx Last Taken Unknown] folic acid 20 mg capsule 20 mg PO DAILY supplement 09/03/20 [History Last Taken Unknown] albuterol sulfate 1.25 mg/3 mL solution for nebulization 1.25 mg (3 mL) inhalation Q4H PRN COPD J44.9 #180 vials 07/10/21 [Rx Last Taken Unknown] methotrexate sodium 5 mg tablet 5 mg PO QWEEK 03/05/22 [History Last Taken 02/23/22] apixaban 5 mg tablet (Eliquis) 5 mg PO BID 01/13/23 [History Last Taken Unknown] fluticasone fur. 100 mcg-umeclid 62.5 mcg-vilant 25 mcg inhalat.powder (Trelegy Ellipta) 1 inh inhalation DAILY #60 ea 01/27/23 [Rx Last Taken Unknown] albuterol sulfate 90 mcg/actuation aerosol inhaler (Ventolin HFA) 2 puff inhalation Q4H PRN shortness of breath #1 device 03/18/23 [Rx Last Taken Unknown] doxycycline hyclate 100 mg tablet 100 mg PO BID 05/08/23 [History Last Taken Unknown] hydrocodone-acetaminophen 5-325mg 5mg-325mg 1 tab PO BID PRN PRN pain 05/08/23 [History Last Taken Unknown] metoprolol succinate 50 mg tablet,extended release 24 hr 100 mg PO DAILY 05/08/23 [History Last Taken Unknown] prednisone 10 mg tablet 10 mg PO DAILY 05/08/23 [History Last Taken Unknown] sertraline 50 mg tablet 75 mg PO DAILY 05/08/23 [History Last Taken Unknown] Allergy/AdvReac Type Severity Reaction Status Date / Time No Known Allergies Allergy Verified 05/08/23 13:54 Family History Mother Ovarian cancer Brother Brain cancer Grandmother Breast cancer Surgical History H/O thumb surgery H/O: hysterectomy History of appendectomy History of back surgery TMJ surgery Social History household members: spouse Smoking Status: Former smoker quit date: 03/01/07 pack-years: 40 Tobacco: How many years used: 40 second hand exposure: Yes counseling given: provider counseling alcohol intake: never substance use type: does not use caffeine: Yes Type: coffee Number of servings: 1 Vital Signs Vital Signs Vital Signs: 05/08/23 13:54 05/08/23 14:03 05/08/23 14:28 Temperature 98.9 F Temperature Source Temporal Pulse Rate 111 H 89 Respiratory Rate 26 H 18 Respiratory Effort Normal Non-Labored Respiratory Depth Normal Respiratory Pattern Normal Normal Blood Pressure 233/106 H Blood Pressure Mean 148 Pulse Ox 83 Oxygen Delivery Method Room Air Room Air Oxygen Flow Rate (L/min) 05/08/23 14:56 05/08/23 15:00 05/08/23 14:30 Temperature Temperature Source Pulse Rate 89 Respiratory Rate 16 Respiratory Effort Respiratory Depth Respiratory Pattern Blood Pressure 165/84 H Blood Pressure Mean 99 Pulse Ox 89 94 Oxygen Delivery Method Room Air Room Air Room Air Oxygen Flow Rate (L/min) 05/08/23 15:45 05/08/23 16:00 05/08/23 16:00 Temperature Temperature Source Pulse Rate 96 95 Respiratory Rate 20 H 15 Respiratory Effort Respiratory Depth Respiratory Pattern Blood Pressure 155/74 H 152/77 H Blood Pressure Mean 94 98 Pulse Ox 87 Oxygen Delivery Method Room Air Oxygen Flow Rate (L/min) 05/08/23 14:45 05/08/23 17:01 05/08/23 17:10 Temperature 98.6 F Temperature Source Pulse Rate 91 91 Respiratory Rate 23 H 23 H Respiratory Effort Respiratory Depth Respiratory Pattern Blood Pressure 177/93 H 177/93 H Blood Pressure Mean 118 121 Pulse Ox 92 96 96 Oxygen Delivery Method Room Air Nasal Cannula Oxygen Flow Rate (L/min) 3 Weight Weight: 242 lb 1.081 oz Body Mass Index (BMI) 40.2 Results Lab / Micro Data 05/08/23 14:30 05/08/23 14:30 Labs: Laboratory Results - last 24 hr 05/08/23 14:30: WBC 10.0, RBC 4.38, Hgb 12.8, Hct 40.7, MCV 92.9, MCH 29.2, MCHC 31.4 L, RDW Std Deviation 54.1 H, RDW Coeff of Robby 16.0 H, Plt Count 265, MPV 10.6, Immature Gran % (Auto) 2.600 H, Neut % (Auto) 82.6 H, Lymph % (Auto) 6.7 L, [place] % (Auto) 7.5, Eos % (Auto) 0.1, Baso % (Auto) 0.5, Absolute Neuts (auto) 8.3 H, Absolute Lymphs (auto) 0.67 L, Nucleated RBC % 0, Sodium 139, Potassium 3.4 L, Chloride 105, Carbon Dioxide 29.0, Anion Gap 5, BUN 16, Creatinine 0.86, Estim Creat Clear Calc 73.99, Est GFR (MDRD) Af Amer 83, Est GFR (MDRD) Non-Af 69, BUN/Creatinine Ratio 18.6, Glucose 129 H, Calcium 9.2, Troponin I High Sens 6, B-Natriuretic Peptide 23.7 Micro: Microbiology 05/08/23 14:30 Mucosa - Nose SARS-CoV-2, Influenza & RSV (PCR) - Final Imaging Radiology Impression Chest CTA 05/08/23 14:21 IMPRESSION: No demonstrated pulmonary embolism or arterial dissection. Stable left lower lobe pulmonary nodules measuring up to 9.3 mm. Emphysema. Bilateral groundglass opacities may reflect mild edema Atherosclerosis. Electronically Signed: Christina Fatima MD at 16:18 EST , Assessment & Plan Assessment/Plan (1) Hypoxia: PLAN: Plan 72-year-old female with prior history of adenocarcinoma of the left lobe of the lung, asthma/COPD, hypertension, hypothyroidism, recent DVT. The reason for presenting acute on chronic respiratory failure is not clear. Could be because of a natural progression of COPD or underlying COPD exacerbation. Recent CT scan is not suggestive of worsening mass lesion. 1. Acute on chronic Hypoxic respiratory failure: -DuoNeb, albuterol as needed -Will start her on Levofloxacin 750 mg daily she had previously responded to this medication and has had repeated episodes of hospitalization and antibiotic use in the past. -Prednisone 40 mg daily for 5 days -Respiratory therapy and physical therapy -Supplemental oxygen therapy via nasal cannula targeting saturation 88 to 92% 2. Clinical stage IA2 (cT1b cN0 M0) adenocarcinoma of the lower lobe of the left lung status post CT chest for lung cancer screening (01/07/2022), CT-guided lung biopsy left lower lobe lesion (03/16/2022), PET scan (03/25/2022), evaluation by medical oncology (03/30/2022), PFTs (04/14/2022), and Brain MRI (04/15/2022). From 05/18/2022 ? 05/27/2022 she completed lung SBRT. She is presently on close surveillance imaging studies not on any therapy. 3. Hypothyroidism: Continue levothyroxine 4. Depression continue Zoloft, zolpidem 5. Acute DVT in the left external iliac vein, common femoral vein, profundofemoral vein: Continue Eliquis 6. ISIDRO: Continue home BiPAP therapy
--- OUTSIDE RECORDS SUMMARY | 2023-05-08 17:49 | XMS RPT_ITS | CCD ---
Author Name Unknown Address [address] [place] [address] Organization [facility] Care Team Providers Care Mathematics Department Chair Name Role Phone Eileen Harrison Unavailable Unavailable Eileen Harrison Unavailable Unavailable Mathew EXHIBIT PREPARATOR, Eileen Little Unavailable Unavaila ble Nataly Escobar Unavailable Unavailable Nataly Escobar Unavailable Unavailable Yensho EXHIBIT PREPARATOR, Marla A Unavailable Unavailab le Eileen Harrison Unavailable Unavailable Yensho EXHIBIT PREPARATOR, Marla A Unavailable Unavailab le Ele Astudillo Unavailable Christina Cordero Unavailable [phone] Andrea Pete Unavailable Getachew Padron Unavailable El Miller Unavailable [facility] Unavailable Ele Astudillo Unavailable El Tyler Unavailable Unavailable Amadou Jackson Unavailable Michelle Prince Unavailable Polly Corea Unavailable Delphine Ramirez Unavailable Unavailable Gracie Lind Unavailable Unavailable Jose, Omayra Unavailable Unavailable Sheri Stanley Unavailable Unavailable AMITA Mena Unavailable Unavailable Delphine Rivera Unavailable Unavailable eliecer braden Unavailable Unavailable Unavailable Unavailable Yensho EXHIBIT PREPARATOR, Marla A Unavailable Unavailab le Ele Astudillo Attending Unavailable Ele Astudillo Referring Unavailable Baudilio, Ele Consulting Unavailable Ele Astudillo Unavailable JaneenChristina whatley Lety Unavailable Andrea Pete Unavailable Getachew Padron Unavailable El Miller Unavailable [facility] Unavailable Ele Astudillo Unavailable El Tyler Unavailable [...] Provider Alejandra Hyatt RN Unavailable Unavailable Isckarus [facility], Mansour S Unavailable Tiffanie Sharma MD Primary [...] Propensity to adverse reactions 8 Intolerance [facility] Work Phone: NEGATED: Highlighted row has [...] AEPB One puff INH BID ACLIDINIUM BROMIDE [id number] Twan Maynard DO Problems Active Problems Problem [...] 11:31-0500 Body temperature 97.5 [degF] Eileen Phillips COURT STENOGRAPHER.MACHINE CELL TUBER Work Phone: [facility] 05-02-2023 11:31-0500 Body weight 109.[address] STENOGRAPHER.MACHINE CELL TUBER Work Phone: [facility] 05-02-2023 11:31-0500 Diastolic blood pressure 88 mm[Hg] Eileen Phillips COURT STENOGRAPHER.MACHINE CELL TUBER Work Phone: [facility] 05-02-2023 11:31-0500 Heart rate 100 /min Eileen Phillips [address] STENOGRAPHER.MACHINE CELL TUBER Work Phone: [facility] 05-02-2023 11:31-0500 Respiratory rate 22 /min Eileen Phillips [address] STENOGRAPHER.MACHINE CELL TUBER Work Phone: [facility] 05-02-2023 11:31-0500 SaO2% (BldA) [Mass fraction] 91 % Eileen Phillips COURT STENOGRAPHER.MACHINE CELL TUBER Work Phone: [facility] 05-02-2023 11:31-0500 Systolic blood pressure 130 mm[Hg] Eileen Phillips COURT STENOGRAPHER.MACHINE CELL TUBER Work Phone: [facility] 12-03-2022 10:07-0400 Body temperature 97.81 [degF] Allyssa Singletary COURT STENOGRAPHER.MACHINE CELL TUBER Work Phone: [facility] 12-03-2022 10:07-0400 Body weight 109.[address] STENOGRAPHER.MACHINE CELL TUBER Work Phone: [facility] 12-03-2022 10:07-0400 Diastolic blood pressure 82 mm[Hg] Allyssa Singletary COURT STENOGRAPHER.MACHINE CELL TUBER Work Phone: [facility] 12-03-2022 10:07-0400 Heart rate 82 /min Allyssa Singletary COURT STENOGRAPHER.MACHINE CELL TUBER Work Phone: [facility] 12-03-2022 10:07-0400 Respiratory rate 16 /min Allyssa Singletary COURT STENOGRAPHER.MACHINE CELL TUBER Work Phone: [facility] 12-03-2022 10:07-0400 SaO2% (BldA) [Mass fraction] 95 % Allyssa Singletary COURT STENOGRAPHER.MACHINE CELL TUBER Work Phone: [facility] 12-03-2022 10:07-0400 Systolic blood pressure 126 mm[Hg] Allyssa Singletary COURT STENOGRAPHER.MACHINE CELL TUBER Work Phone: [facility] 04-22-2022 11:46-0500 Diastolic blood pressure 68 mm[Hg] Andrea Laura MD Work Phone: [facility] 04-22-2022 11:46-0500 Heart rate 80 /min Andrea Laura MD Work Phone: [facility] 04-22-2022 11:46-0500 Systolic blood pressure 140 mm[Hg] Andrea Laura MD Work Phone: [facility] 04-22-2022 11:10-0500 Body height 165.1 cm Andrea Laura MD Work Phone: [facility] 04-22-2022 11:10-0500 Body mass index (BMI) [Ratio] 39.97 kg/m2 Andrea Laura MD Work Phone: [facility] 04-22-2022 11:10-0500 Body temperature 98.2 [degF] Andrea Laura MD Work Phone: [facility] 04-22-2022 11:10-0500 Body weight 108.95 kg Andrea Laura MD Work Phone: [facility] 04-22-2022 11:10-0500 Respiratory rate 18 /min Andrea Laura MD Work Phone: [facility] 04-22-2022 11:10-0500 SaO2% (BldA) [Mass fraction] 95 % Andrea Laura MD Work Phone: [facility] 02-17-2022 10:45-0500 Body temperature 97.39 [degF] Allyssa Hayder COURT STENOGRAPHER.MACHINE CELL TUBER Work Phone: [facility] 02-17-2022 10:45-0500 Body weight 110.[address] STENOGRAPHER.MACHINE CELL TUBER Work Phone: [facility] 02-17-2022 10:45-0500 Diastolic blood pressure 88 mm[Hg] Allyssa Hayder COURT STENOGRAPHER.MACHINE CELL TUBER Work Phone: [facility] 02-17-2022 10:45-0500 Heart rate 96 /min Allyssa Hayder COURT STENOGRAPHER.MACHINE CELL TUBER Work Phone: [facility] 02-17-2022 10:45-0500 Respiratory rate 20 /min Allyssa Hayder [address] STENOGRAPHER.MACHINE CELL TUBER Work Phone: [facility] 02-17-2022 10:45-0500 SaO2% (BldA) [Mass fraction] 92 % Allyssa Hayder COURT STENOGRAPHER.MACHINE CELL TUBER Work Phone: [facility] 02-17-2022 10:45-0500 Systolic blood pressure 172 mm[Hg] Allyssa Hayder COURT STENOGRAPHER.MACHINE CELL TUBER Work Phone: [facility] 08-08-2018 14:39-0400 BMI (Body Mass Index) 40.94 kg/m2 Ele Astudillo [facility] Internal Medicine Work Phone: 08-08-2018 14:39-0400 Body Temperature 96.9 [degF] Ele Astudillo [facility] Internal Medicine Work Phone: Encounters Encounter Date Encounter Type Care Provider Facility Start: 05-02-2023 End: 05-02-2023 [facility] Start: 05-02-2023 End: 05-02-2023 Patient encounter procedure Eileen Phillips COURT STENOGRAPHER.MACHINE CELL TUBER Work Phone: [facility] Procedures Date Procedure Procedure Detail Performing Clinician Start: 12-03-2022 Radiologic exam chest [address] STENOGRAPHER.MACHINE CELL TUBER Work Phone: Start: 02-17-2022 Radiologic exam chest [address] STENOGRAPHER.MACHINE CELL TUBER Work Phone: Start: 09-28-2018 End: 09-28-2018 Pulmonary Visit Report Comments: See Note; NOTES: [facility] Pulmonary Medicine of [place] [address] [place] [address] OFFICE VISIT Date of Service: 09/28/18 MR#: [id number] Acct: [id number] Name: TEAGAN VAUGHAN Rep #: [id number] : 1950 Provider: INDIRA Butts Age/Sex: 67/F Location: [facility].PMW Status: Signed Assessment AND Plan 1. Asthma-COPD [...] lb Intake Visit Reasons: 3 M FU [facility] Vendor: [employer] Accompanied by: Self Allergies No Known Allergies [...] 09/28/18 0915 <Electronically signed by Marta Butts [employer]-C> Date Marta Butts NP-C Cosigner Signature: Date (if applicable) CC: Ele Pendleton Start: 09-23-2018 End: 09-23-2018 6 Minute Walk Test Comments: See Note; NOTES: [facility] Pulmonary Services/Neurology [address] [place] [address] MR#: [id number] Acct: [id number] Name: TEAGAN VAUGHAN Rep #: [id number] : 1950 67 From: Woody Galvez MD Referring Dr: Twan Maynard DO Status: REG CLI Location: PSN Date: Sex: F C PSN 6 Minute Walk Test - 6 Minute Walk Test 6 Minute Walk Test: 6 Minute Walk Test PSN:6-Minute Walk Test Start: 09/23/18 09:23 Freq: Status: Active Protocol: RESP.6MINW Document 09/23/18 09:23 [facility] (Rec: 09/23/18 09:31 [facility] [id number]) 6 Minute Walk Test Date Performed 09/23/18 [...] WITH HER OWN PORTABLE O2 TANK FROM [employer]. TEST BEGAN ON ROOM AIR. PATIENT PLACED [...] Date Dictated: 09/23/18 110 Date Transcribed: 09/23/181102 Front End Web Developer: Woody Galvez MD Signed Ele Astudillo Start: 06-16-2018 End: 06-16-2018 Pulmonary Visit Report Comments: See Note; NOTES: [facility] Pulmonary Medicine [address] [place] [address] OFFICE VISIT Date of Service: 06/16/18 MR#: [id number] Acct: [id number] Name: TEAGAN VAUGHAN Rep #: [id number] : 1950 Provider: Twan Maynard D.O. Age/Sex: 67/F Location: [facility].PMW Status: Signed Assessment AND Plan 1. Asthma-COPD [...] full facemask and receives her equipment through [employer]. Today, the patient reports continued shortness of [...] lb Intake Visit Reasons: 6 M FU [facility] Vendor: [employer] Accompanied by: Self Allergies No Known Allergies [...] 08/23/17 [Rx Confirmed 06/16/18] Handicap Placcard #1 [id number] 09/07/17 [Rx Confirmed 06/16/18] fluticasone propionate 50 [...] with cough, No chest congestion, Yes cough (T[employer] PRINT[employer] CIRCUIT LAYOUT), No chest tightness, No pain on inspiration, [...] DO Cosigner Signature: Date (if applicable) CC: Eel Pendleton Start: 11-09-2017 End: 11-09-2017 Foot min 3 Views Comments: See Note; NOTES: [facility] Imaging Services [address] [place] [address] Foot min 3 Views MR#: [id number] Acct: [id number] Name: TEAGAN VAUGHAN Nelson Rep #: [id number] : 1950 F 66 From: Gabriela Ruiz MD PCP: Ele Astudillo DO Status: REG CLI Study: Foot min 3 Views Date of Exam: 11/09/17 Exam# [id number] Ordering Dr: Delphine Rivera [employer]-C STUDY: X-RAY - RIGHT FOOT CLINICAL: Female, [...] , CC: INDIRA Rivera; Ele Astudillo DO Front End Web Developer: Signed Delphine Rivera Start: 11-03-2017 End: 11-03-2017 Pulmonary Visit Report Comments: See Note; NOTES: [facility] [place] [address] [facility] [place] [address] OFFICE VISIT Date of Service: 11/03/17 MR#: [id number] Acct: [id number] Name: TEAGAN VAUGHAN Rep #: [id number] : 1950 Provider: Marta Butts Age/Sex: 66/F Location: [facility].PMW Status: Signed Assessment AND Plan 1. ISIDRO [...] 08/23/17 [Rx Confirmed 09/07/17] Handicap Placcard #1 [id number] 09/07/17 [Rx Confirmed 09/07/17] [facility] Medical History BMI 37.0-37.9, adult (Chronic) Hypothyroidism [...] Admin Location Lot Number Expiration Date NDC Fire Chief'S Aide 0.5 mL IM Left Deltoid [id number] 05/30/18 51097-271-38 SEQIRUS VIS Given Date VIS Publication Date 11/03/17 10/05/14 Eligibility Eligibility Date Coding Level of Care Code Off vis,est,level 3 Diagnoses ISIDRO (obstructive sleep apnea) G47.33 Stage 3 severe COPD by GOLD classification J44.9 11/03/17 0844 <Electronically signed by Marta JACOBSON> Date Marta VILAC Cosigner Signature: Date (if applicable) CC: Ele Pendleton Start: 10-27-2017 End: 10-27-2017 MI - Individual Treatment Plan Comments: See Note; NOTES: [facility] Pulmonary Rehab Reports [address] [place] [address] MI - Individual Treatment Plan MR#: [id number] Acct: [id number] Name: TEAGAN VAUGHAN Rep #: [id number] : 1950 66 From: Raf Bryson RADIATION TECHNICIAN, WINDOWS SYSTEM ADMIN, BS PCP: Ele Astudillo DO Exercise - [...] and modality and progress per protocol. 10/27/17 3350<Electronically signed by Pablo Meadows MD> Cosigner Signature: Date Pablo Meadows MD CC: Signed Ele Astudillo Start: 10-19-2017 End: 10-19-2017 MI - Individual Treatment Plan Comments: See Note; NOTES: [facility] Pulmonary Rehab Reports [address] [place] [address] MI - Individual Treatment Plan MR#: [id number] Acct: [id number] Name: TEAGAN VAUGHAN Rep #: [id number] : 1950 66 From: Raf Bryson RADIATION TECHNICIAN, WINDOWS SYSTEM ADMIN, BS PCP: Ele Astudillo DO Exercise - [...] Comments: See Note; NOTES: Pulmonary Medicine of [address] [place] [address] OFFICE VISIT Date of Service: 09/07/17 MR#: [id number] Acct: [id number] Name: TEAGAN VAUGHAN Nelson Rep #: [id number] : 1950 Provider: Twan Maynard D.O. Age/Sex: 66/F Location: [facility].PMW Status: Signed Assessment AND Plan 1. Stage [...] full facemask and receives her equipment through [employer]. She denies the presence of chest tightness or wheezing. She does have a mild, intermittently productive cough, which she attributes to her allergies. She continues to receive weekly allergy immunotherapy injections. Her weight has been stable. She denies fevers, chills or night sweats. Intake Vital Signs09/07/17 Height 5 ft 5 in 09/07/17 Weight: 239 lb Intake Visit Reasons: 3 M FU [employer] Required: No DME Vendor: [employer] Accompanied by: Self Is patient in pain?: [...] 08/23/17 [Rx Confirmed 09/07/17] Handicap Placcard #1 [id number] 09/07/17 [Rx Confirmed 09/07/17] [facility] Medical History BMI 37.0-37.9, adult (Chronic) Hypothyroidism [...] Cosigner Signature: Date (if applicable) CC: Ele Pendelton Start: 08-23-2017 End: 08-23-2017 MI - Individual Treatment Plan Comments: See Note; NOTES: [facility] Pulmonary Rehab Reports [address] [place] [address] MI - Individual Treatment Plan MR#: [id number] Acct: [id number] Name: TEAGAN VAUGHAN Rep #: [id number] : 1950 66 From: Raf Bryson RADIATION TECHNICIAN, WINDOWS SYSTEM ADMIN, BS PCP: Ele Astudillo DO Exercise - [...] and modality and progress per protocol. 08/23/17 9636<Electronically signed by Yo Rutledge MD> Cosigner Signature: Date Yo Rutledge MD CC: Signed Ele Astudillo Start: 07-30-2017 End: 07-30-2017 MI - Individual Treatment Plan Comments: See Note; NOTES: [facility] Pulmonary Rehab Reports [address] [place] [address] MI - Individual Treatment Plan MR#: [id number] Acct: [id number] Name: TEAGAN VAUGHAN Rep #: [id number] : 1950 66 From: Raf Bryson RADIATION TECHNICIAN, WINDOWS SYSTEM ADMIN, BS PCP: Ele Astudillo DO General Information [...] Comments: See Note; NOTES: Pulmonary Medicine of [address] [place] [address] OFFICE VISIT Date of Service: 07/13/17 MR#: [id number] Acct: [id number] Name: TEAGAN VAUGHAN Rep #: [id number] : 1950 Provider: Marta Butts Age/Sex: 66/F Location: [facility] Status: Signed Assessment AND Plan 1. Daytime [...] 07 follow-up appointment. Orders Orders: Medications New: aloblbnyiul-ifpdpcvje-drddkp er 100-62.5-25 mcg (Trelegy Ellipta) 1 inh [...] of systems. She has not used any jwyf-lft-mbrmiab medications in addition to prescription medications for [...] QDAY #1 device 07/13/17 [Rx Confirmed 07/13/17] [facility] Medical History BMI 37.0-37.9, adult (Chronic) Hypothyroidism [...] Pulmonary Function Test Comments: See Note; NOTES: [facility] Pulmonary Services/Neurology [address] [place] [address] MR#: [id number] Acct: [id number] Name: TEAGAN VAUGHAN Rep #: [id number] : 1950 66 From: Twan Maynard DO Referring Dr: Twan Maynard D.O. Status: REG I Ordering Dr: Date: Location: [facility] Sex: F C INTRODUCTION: The [...] DO Date Dictated: 06/24/171300 Date Transcribed: 06/24/171300 Front End Web Developer: DB Signed Ele Astudillo Start: 06-18-2017 End: 06-18-2017 6 Minute Walk Test Comments: See Note; NOTES: [facility] Pulmonary Services/Neurology [address] [facility] [place] [address] MR#: [id number] Acct: [id number] Name: TEAGAN VAUGHAN Rep #: [id number] : 1950 66 From: Woody Galvez MD Referring Dr: Twan Maynard D.O. Date: Ordering Dr: Sex: F C Location: PSN PSN 6 Minute Walk Test - 6 Minute Walk Test 6 Minute Walk Test: 6 Minute Walk Test PSN:6-Minute Walk Test Start: 06/18/17 09:45 Freq: Status: Active Protocol: RESP.6MINW Document 06/18/17 09:45 [place] (Rec: 06/18/17 09:51 SF[place] [id number]) 6 Minute Walk Test Date Performed 06/18/17 [...] using 2 L/min with any exertion. 06/18/17 5233 <Electronically signed by Woody Galvez MD> Date Woody Galvez MD CC: Date Dictated: 06/18/17 1501 Date Transcribed: 06/18/171500 Front End Web Developer: Woody Galvez Signed Ele Astudillo Start: 06-14-2017 End: 06-14-2017 MI - History AND Physical Comments: See Note; NOTES: [facility] Pulmonary Rehab Reports [address] [place] [address] MI - History AND Physical MR#: [id number] Acct: [id number] Name: TEAGAN VAUGHAN Rep #: [id number] : 1950 66 From: Raf Bryson RADIATION TECHNICIAN, WINDOWS SYSTEM ADMIN, BS PCP: Ele Astudillo DO History of [...] Advanced Directives - Advanced Directives Power of Avionics Systems Technician: Yes Living Will: Yes Advance Directives Information [...] = Denies (Slash). Left click = Reports (Douglas) Respiratory: Reports: Appetite, Normal, Sleep, Normal. Denies: [...] and modality and progress per protocol. 06/14/17 5885<Electronically signed by Yo Rutledge MD> Manjinderer Signature: Date Yo Rutledge MD CC: Signed Ele Baudilio Start: 06-14-2017 End: 06-14-2017 MI - Individual Treatment Plan Comments: See Note; NOTES: [facility] Pulmonary Rehab Reports [address] [place] [address] MI - Individual Treatment Plan MR#: [id number] Acct: [id number] Name: TEAGAN VAUGHAN Rep #: [id number] : 1950 66 From: Raf Bryson RADIATION TECHNICIAN, WINDOWS SYSTEM ADMIN, BS PCP: Ele Atsudillo DO General Information - General Information Admitting [...] Comments: See Note; NOTES: Pulmonary Medicine of [address] [place] [address] OFFICE VISIT Date of Service: 06/01/17 MR#: [id number] Acct: [id number] Name: TEAGAN VAUGHAN Rep #: [id number] : 1950 Provider: Twan Maynard D.O. Age/Sex: 66/F Location: [facility].PMW Status: Signed Assessment AND Plan 1. COPD [...] Q24H #1 device 06/01/17 [Rx Confirmed 06/01/17] [facility] Medical History BMI 37.0-37.9, adult (Chronic) Hypothyroidism [...] Astudillo Start: 09-09-2016 End: 12-02-2016 DMEddie Butts MACHINE CELL TUBER Work Phone: Start: 09-09-2016 End: 12-02-2016 Follow Up Appt 3 months Marta waddell MACHINE CELL TUBER Work Phone: Start: 08-14-2016 End: 08-14-2016 Echocardiogram Complete Comments: See Note; NOTES: [facility] Cardiovascular Services [address] [place] [address] Echo Complete 08/14/16 1107 MR#: [id number] Acct: [id number] Name: TEAGAN VAUGHAN Rep #: [id number] : 1950 65 From: Jase Post MD Attending Dr: Twan Maynard D.O. Status: REG I Ordering Dr: Twan Maynard DO Date: 08/14/16 Location: [facility] Sex: F C Admitted: Reason For Study: [...] Dictated: 08/14/16 1107 Date Transcribed: 08/14/16 1454 Front End Web Developer: Signed Ele Astudillo Start: 08-12-2016 End: 12-02-2016 DMB Rebeca Acevedo [employer] Work Phone: Start: 08-12-2016 End: 08-13-2016 ENT Referral Rebeca Radha Curtis [employer] Work Phone: Start: 08-12-2016 End: 12-02-2016 Follow Up Appt 3 months Rebeca Acevedo [employer] Work Phone: Start: 08-12-2016 End: 08-13-2016 ENT Referral Rebeca Radha Curtis [employer] Work Phone: Start: 07-30-2016 End: 08-03-2016 *RASTZONE8 Allergens,Zone8 [id number] Twan Maynard DO Work Phone: Start: 07-30-2016 [...] Phone: Start: 07-30-2016 End: 08-03-2016 *RASTZONE8 Allergens,Zone8 [id number] Twannelson Maynard DO Work Phone: Start: 07-30-2016 End: 08-03-2016 Globulin Twan Maynard DO Work Phone: Start: 07-30-2016 End: 08-03-2016 IgE [Mass/volume] in Serum Twan Mayanrd DO Work Phone: Start: 07-22-2016 End: 07-22-2016 Pulmonary Function Report Comp Comments: See Note; NOTES: [facility] Pulmonary Services/Neurology [address] [place] [address] Pulmonary Function Test (Comp) MR#: [id number] Acct: [id number] Name: TEAGAN VAUGHAN Rep #: [id number] : 1950 65 From: Twan Maynard DO Referring Dr: Marta Butts T[employer]OUT Status: REG CLI Ordering Dr: Marta Butts TAPER PR[employer]AYOUT-C Date: 07/21/16 Location: [facility] Sex: F C DATE OF [...] C: Referring Provider . T: NTS JOB: [id number] 07/22/16 1052 <Electronically signed by Twan Maynard DO> Date Twan Maynard DO CC: Marta Butts; Twan Maynard D.O.; Ele Astudillo DO Date Dictated: 07/21/16 154 Date Transcribed: 07/21/161542 Front End Web Developer: Signed Ele Astudillo Start: 07-07-2016 End: 07-08-2016 6 Minute Walk Test Comments: See Note; NOTES: [facility] Pulmonary Services/Neurology [address] [place] [address] MR#: [id number] Acct: [id number] Name: TEAGAN VAUGHAN Rep #: [id number] : 1950 65 From: Twan Maynard DO Referring Dr: Marta Butts NP Date: Ordering Dr: Sex: F C Location: PSN PSN 6 Minute Walk Test - 6 Minute Walk Test 6 Minute Walk Test: 6 Minute Walk Test PSN:6-Minute Walk Test Start: 07/07/16 11:21 Freq: Status: Active Document 07/07/16 11:00 HG (Rec: 07/07/16 11:24 HG [id number]) 6 Minute Walk Test Date Performed 07/07/16 [...] Dictated: 07/07/16 1509 Date Transcribed: 07/07/16 1509 Front End Web Developer: Twan Maynard DO Signed Ele Astudillo Start: 06-29-2016 End: 07-07-2016 CHUYITA Butts CNP Work Phone: Start: 06-29-2016 End: 07-07-2016 Follow Up Appt 1 month Marta villa CNP Work Phone: Start: 06-29-2016 End: 07-07-2016 Pulmonary Function Test - complete Marta Butst CNP Work Phone: Start: 06-29-2016 End: 07-07-2016 Pulmonary stress test/simple Marta Butts CNP Work Phone: Start: 06-29-2016 End: 07-07-2016 CHUYITA Butts CNP Work Phone: Start: 06-29-2016 End: 07-07-2016 Follow Up Appt 1 month Marta villa CNP Work Phone: Start: 06-29-2016 End: 07-07-2016 Pulmonary Function Test - complete Marta Butts MACHINE CELL TUBER Work Phone: Start: 06-29-2016 End: 07-07-2016 Pulmonary stress test/simple Marta Butts MACHINE CELL TUBER Work Phone: Start: 06-10-2016 End: 06-10-2016 Chest PA and Lateral Comments: See Note; NOTES: [facility] Imaging Services [address] [place] [address] Verdana 4d Chest PA and Lateral MR#: [id number] Acct: [id number] Name: TEAGAN VAUGHAN Rep #: [id number] : 1950 F 65 From: Lanie Lee MD PCP: Ele Astudillo DO Status: REG ER Study: Chest PA and Lateral Date of Exam: 06/10/16 Exam# [id number] Ordering Dr: Cailin Elizabeth MD STUDY: X-RAY [...] CC: Cailin Elizabeth MD; Ele Astudillo DO Front End Web Developer: Signed Ele Astudillo Start: 06-01-2016 End: 06-02-2016 Cerv Spine 2 or 3 Views Comments: See Note; NOTES: [facility] Imaging Services [address] [place] [address] Verdana 4d Cerv Spine 2 or 3 Views MR#: [id number] Acct: [id number] Name: TEAGAN VAUGHAN Rep #: [id number] : 1950 F 65 From: Leonardo Canada MD PCP: Ele Astudillo DO Status: REG CLI Study: Cerv Spine 2 or 3 Views Date of Exam: 06/01/16 Exam# [id number] Ordering Dr: Ele Astudillo DO STUDY: X-RAY [...] at 1:25 EDT Tel , Service support [phone], CC: Ele Astudillo DO Front End Web Developer: Signed Ele Astudillo Work Phone: Start: 06-01-2016 End: 06-02-2016 Shoulder min 2 Views Comments: See Note; NOTES: [facility] Imaging Services [address] [place] [address] Verdana 4d Shoulder min 2 Views MR#: [id number] Acct: [id number] Name: TEAGAN VAUGHAN Rep #: [id number] : 1950 F 65 From: Leonardo Canada MD PCP: Ele Astudillo DO Status: REG CLI Study: Shoulder min 2 Views Date of Exam: 06/01/16 Exam# [id number] Ordering Dr: Ele Astudillo DO STUDY: X-RAY [...] at 6:17 EDT Tel , Service support [phone], CC: Ele Astudillo DO Front End Web Developer: Signed Ele Astudillo Work Phone: Start: 06-24-2015 End: 06-24-2015 Spmtry w/vc expiratory humphrey w/wo mxml vol vntj _ Ele Astudillo Work Phone: Plan of Treatment Date Care Activity Detail Author Start: 04-30-2023 Covid-19 Vaccine () Covid-19 Vaccine () [facility] Start: 03-01-2023 Advance Directive Discussion Advance Directive Discussion [facility] Start: 03-01-2023 Depression Assessment Depression Assessment [facility] Start: 02-24-2023 Screening for malignant neoplasm of colon COLORECTAL CANCER SCREENING DISCUSSION [facility] Start: 10-30-2022 Influenza vaccination Influenza Vaccine (#1) [facility] Start: 03-01-2022 Advance Directive Discussion Advance Directive Discussion [facility] Start: 03-01-2022 Depression Assessment Depression Assessment [facility] Start: 02-24-2022 Covid-19 Vaccine (6 - Moderna risk series) Covid-19 Vaccine (6 - Moderna risk series) [facility] Start: 02-06-2022 Screening for malignant neoplasm of breast MAMMOGRAM SCREENING DISCUSSION [facility] Start: 01-20-2022 COVID-19 VACCINE (2 - Pfizer series) COVID-19 VACCINE (2 - Pfizer series) [facility] Start: 03-01-2021 ADVANCE DIRECTIVE DISCUSSION ADVANCE DIRECTIVE DISCUSSION [facility] Start: 03-01-2021 DEPRESSION ASSESSMENT DEPRESSION ASSESSMENT [facility] Start: 08-08-2018 Thyrotropin Qn TSH (91744) [facility] Work Phone: Start: 08-08-2018 Comprehensive metabolic panel METABOLIC PANEL, COMPREHENSIVE (62295) [facility] Work Phone: Start: 08-08-2018 Blood count complete auto&auto difrntl wbc CBC W/AUTO DIFF WBC (36779) [facility] Work Phone: Start: 08-08-2018 Procedure Education Eprescribed prescriptions (G8553) [facility] Work Phone: Start: 08-08-2018 Provider Instructions for Treatment [facility] Work Phone: Start: 05-26-2018 Procedure Education Eprescribed prescriptions (G8553) [facility] Work Phone: Start: 05-26-2018 Provider Instructions for Treatment [facility] Work Phone: Start: 04-28-2018 Patient Education [facility] Work Phone: Start: 04-28-2018 Procedure Education Eprescribed prescriptions (G8553) [facility] Work Phone: Start: 04-28-2018 Provider Instructions for Treatment [facility] Work Phone: Start: 01-31-2018 T4 free mass conc T4, FREE (THYROXINE) (43773) [facility] Work Phone: Start: 01-31-2018 T3 free mass conc T3, FREE (TRIDOTHYRONINE) (58967) [facility] Work Phone: Start: 01-31-2018 Thyrotropin Qn TSH (74018) [facility] Work Phone: Start: 01-31-2018 Urnls dip stick/tablet reagent auto microscopy URINALYSIS, W/ MICRO (83837) [facility] Work Phone: Start: 01-31-2018 Urine albumin quantitative MICROALBUMIN: CREATININE RATIO (06265) AND (74735) [facility] Work Phone: Start: 01-31-2018 Comprehensive metabolic panel METABOLIC PANEL, COMPREHENSIVE (49468) [facility] Work Phone: Start: 01-31-2018 Lipid panel LIPID PANEL (87017) [facility] Work Phone: Start: 01-31-2018 Blood count complete auto&auto difrntl wbc CBC W/AUTO DIFF WBC (08648) [facility] Work Phone: Start: 01-31-2018 [...] 06-01-2017 Appointment Appointment [facility] [place] Work Phone: Start: 12-02-2016 End: 12-02-2016 D[facility] [place] Work Phone: Start: 12-02-2016 End: 12-02-2016 Follow Up Appt 6 months Follow Up Appt 6 months [facility] [place] Work Phone: Start: 12-02-2016 End: 12-02-2016 Appointment Appointment [facility] [place] Work Phone: Start: 11-24-2016 BONE DENSITY BONE DENSITY [facility] Start: 11-24-2016 Bone Density Screening Bone Density Screening [facility] Start: 11-24-2016 Screening for osteoporosis Bone Density Screening [facility] Start: 10-12-2016 Procedure Education Eprescribed prescriptions (G8553) [facility] Work Phone: Start: 10-12-2016 Provider Instructions for Treatment [facility] Work Phone: Start: 10-05-2016 Procedure Education Eprescribed prescriptions (G8553) [facility] Work Phone: Start: 10-05-2016 Provider Instructions for Treatment [facility] Work Phone: Start: 09-28-2016 Patient Education [facility] Work Phone: Start: 09-28-2016 Procedure Education Eprescribed prescriptions (G8553) [facility] Work Phone: Start: 09-28-2016 Provider Instructions for Treatment Follow up in 2 weeks [facility] Work Phone: Start: 09-09-2016 End: 12-02-2016 [facility] [place] Work Phone: Start: 09-09-2016 End: 12-02-2016 Follow Up Appt 3 months Follow Up Appt 3 months [facility] [place] Work Phone: Start: 09-09-2016 End: 09-09-2016 Appointment Appointment [facility] [place] Work Phone: Start: 09-09-2016 End: 09-09-2016 Appointment Appointment [facility] [place] Work Phone: Start: 09-09-2016 End: 09-09-2016 D[facility] [place] Work Phone: Start: 09-09-2016 End: 09-09-2016 Follow Up Appt 3 months Follow Up Appt 3 months [facility] [place] Work Phone: Start: 08-12-2016 End: 12-02-2016 DMB [facility] [place] Work Phone: Start: 08-12-2016 End: 08-12-2016 ENT Referral ENT Referral Jared Peñaloza, [address] [place] [address], [phone] [facility] [place] Work Phone: Start: 08-12-2016 End: 12-02-2016 Follow Up Appt 3 months Follow Up Appt 3 months [facility] [place] Work Phone: Start: 08-12-2016 End: 08-12-2016 Appointment Appointment [facility] [place] Work Phone: Start: 08-12-2016 End: 08-12-2016 DMB [facility] [place] Work Phone: Start: 08-12-2016 End: 08-13-2016 ENT Referral ENT Referral Jared Peñaloza, [address] [place] [address], [phone] [facility] [place] Work Phone: Start: 08-12-2016 End: 08-12-2016 Follow Up Appt 3 months Follow Up Appt 3 months [facility] [place] Work Phone: Start: 07-30-2016 End: 08-03-2016 *RASTZONE8 Allergens,Zone8 [id number] *RASTZONE8 Allergens,Zone8 [id number] [facility] [place] Work Phone: Start: 07-30-2016 End: 12-02-2016 [facility] [place] Work Phone: Start: 07-30-2016 End: 12-02-2016 Echo tthrc r-t 2d w/wom-mode compl spec&colr d Echo Complete with Color Flow [facility] Phone: Start: 07-30-2016 End: 12-02-2016 Follow Up Appt 6 weeks Follow Up Appt 6 weeks [facility] [place] Work Phone: Start: 07-30-2016 End: 08-03-2016 Globulin *MAXINE Immunoglobulin E (IgE) [facility] [place] Work Phone: Start: 07-30-2016 End: 08-03-2016 IgE mass conc (S) *MAXINE Immunoglobulin E (IgE) [facility] [place] Work Phone: Start: 07-30-2016 End: 07-30-2016 Appointment Appointment [facility] [place] Work Phone: Start: 07-30-2016 End: 08-03-2016 *RASTZONE8 Allergens,Zone8 [id number] *RASTZONE8 Allergens,Zone8 [id number] [facility] [place] Work Phone: Start: 07-30-2016 End: 07-30-2016 [facility] [place] Work Phone: Start: 07-30-2016 End: 07-30-2016 Follow Up Appt 6 weeks Follow Up Appt 6 weeks [facility] [place] Work Phone: Start: 07-30-2016 End: 08-03-2016 Globulin *MAXINE Immunoglobulin E (IgE) [facility] [place] Work Phone: Start: 07-30-2016 End: 08-03-2016 IgE mass conc (S) *MAXINE Immunoglobulin E (IgE) [facility] [place] Work Phone: Start: 07-30-2016 End: 07-30-2016 Tte w/doppler, complete Echo Complete with Color Flow [facility] [place] Work Phone: Start: 07-15-2016 SHINGRIX VACCINE (1 of 2) SHINGRIX VACCINE (1 of 2) [facility] Start: 07-15-2016 Zoster vaccine hzv live for subcutaneous use ZOSTER (SHINGLES) VACCINE (2 of 3) [facility] Start: 06-29-2016 End: 07-07-2016 DMB D[facility] [place] Work Phone: Start: 06-29-2016 End: 07-07-2016 Follow Up Appt 1 month Follow Up Appt 1 month [facility] [place] Work Phone: Start: 06-29-2016 End: 07-07-2016 Pulmonary Function Test - complete Pulmonary Function Test - complete [facility] [place] Work Phone: Start: 06-29-2016 End: 07-07-2016 Pulmonary stress test/simple Pulmonary stress testing; simple (eg, 6-minute walk) [facility] [place] Work Phone: Start: 06-29-2016 End: 07-07-2016 CHUYITA [facility] [place] Work Phone: Start: 06-29-2016 End: 07-07-2016 Follow Up Appt 1 month Follow Up Appt 1 month [facility] [place] Work Phone: Start: 06-29-2016 End: 07-07-2016 Pulmonary Function Test - complete Pulmonary Function Test - complete [facility] [place] Work Phone: Start: 06-29-2016 End: 07-07-2016 Pulmonary stress test/simple Pulmonary stress testing; simple (eg, 6-minute walk) [facility] [place] Work Phone: Start: 06-08-2016 Procedure Education Eprescribed [...] A1c/Hemoglobin.total mass fraction (Bld) HgA1C , Office (93521) [facility] Work Phone: Start: 06-12-2015 Glucose mass conc Blood Glucose , Office (44870) [facility] Work Phone: Start: 06-05-2015 [...] Start: 11-03-2013 Rheumatoid factor quantitative RHEUMATOID FACTOR-QUANT (35807) test code [id number] [facility] Work Phone: Start: 11-03-2013 Extractable nuclear antigen antibody any method [facility] Work Phone: Start: 11-03-2013 Protein mass conc [facility] Work Phone: Start: 11-03-2013 Dna antibody belkofski/double stranded DNA ANTIBODY-NATV/DBL ST (47683) test code 532993 [facility] Work Phone: Start: 10-20-2013 [...] T3 free mass conc T3, FREE (TRIDOTHYRONINE) (04802) [facility] Work Phone: Start: 11-11-2012 T4 free mass conc T4, FREE (THYROXINE) (06493) [facility] Work Phone: Start: 11-11-2012 Thyrotropin Qn TSH (08946) [facility] Work Phone: Start: 11-11-2012 Lipid panel LIPID PANEL (81149) [facility] Work Phone: Start: 10-06-2012 Patient [...] Phone: Start: 08-10-2012 Lipid panel LIPID PANEL (37777) [facility] Work Phone: Start: 07-15-2012 Patient Education Asthma: asthma [facility] Work Phone: Start: 07-15-2012 Provider [...] 05-13-2010 Fibrin dgradj products d-dimer quantitative D-Dimer (59938) [facility] Work Phone: Immunizations Immunization Date Immunization Notes Care Provider Sebel kincaid 01-02-2022 influenza virus vacc ine, unspecified formulation Allyssa Singletary COURT STENOGRAPHER.MACHINE CELL TUBER Work Phone: [facility] 12-26-2018 pneumococcal polysaccharide vaccine, [address] STENOGRAPHER.MACHINE CELL TUBER Work Phone: [facility] 12-26-2018 Seasonal trivalent influenza vaccine, adjuvanted, preservative free Allyssa Singletary COURT STENOGRAPHER.MACHINE CELL TUBER Work Phone: [facility] 12-15-2016 pneumococcal conjuga te vaccine, [address] STENOGRAPHER.MACHINE CELL TUBER Work Phone: [facility] 05-20-2016 zoster vaccine, live Duncan Singletary COURT STENOGRAPHER.MACHINE CELL TUBER Work Phone: [facility] 05-20-2016 zoster vaccine, unspecified formulation Andrea Laura MD Work Phone: [facility] Payers Date Payer Category Payer Unknown 2018 Medicare [id number] 2018 Private Health Insurance [facility] [id number] 2018 Private Health Insurance [employer] A ETNA MEDICARE SUPPLEMENT [id number] 2018-Present [phone] [address] [address] [place] [address] Indemnity [id number] 2016 Medicare [id number] 2016 Medicare [id number] 2005 Unknown [id number] 1950 Unknown [id number] 1950 Unknown [id number] 1950 Unknown [id number] 1950 Unknown [id number] Social History Date Type Detail Facility Start: 02-06-2020 End: 12-03-2022 Caffeine Use Former smoker [facility] Work Phone: Clinical Notes 02-17-2022 to 05-02-2023 Eileen Phillips APRN.CNP - 05/02/2023 11:37 AM ESTAllyssa Napier APRN.CNP - 12/03/2022 10:17 AM DARWIN Sanchez - 04/22/2022 11:00 AM EST Note Date & Type Note Facility 05-02-2023 Note HNO ID: [id number] Author: EILEEN PHILLIPS APRN.MACHINE CELL TUBER Service: ? Author Type: Nurse Practitioner Type: [...] history is provided by the patient. No foreign language stenographer was used. URI She complains of cough, [...] 91% BMI 38.90 (more content not included)... [facility] 05-02-2023 History of Present illness Narrative This note was created using [employer]MyBlog[employer]. Subjective Teagan Vaughan is a 72 year old female. 72 year old female with PMH COPD, asthma, and thyroid presents for illness. Acute onst approximately one week ago + headache +fever +chills +cough Productive sputum +fatigue Winded and hard to take deep breath at times. +wheezing Denies body aches Denies CP The history is provided by the patient. No foreign language stenographer was used. URI She complains of cough, [...] 1. Asthma with COPD with exacerbation (HCC) ([facility]) - ICD9: 493.22, ICD10: J44.1, J45.901 (primary [...] symptoms - Declines viral testing Eileen Phillips APRN.MACHINE CELL TUBER documented in this encounter [facility] 12-03-2022 Note HNO ID: [id number] Author: Ivis Pascual RT(R) Service: Radiology Author [...] RT Renetta(R) December 03, 2022 11:05 AM [facility] 12-03-2022 Note HNO ID: [id number] Author: Allyssa Singletary APRN.CNP Service: ? Author [...] abnormality. Dictated by : MD Allyssa ROBINS APRN.MACHINE CELL TUBER [facility] 12-03-2022 Instructions Allyssa Singletary APRN.CHELLY - [...] MG TABLET documented in this encounter [facility] 12-03-2022 History of Present illness Narrative [...] abnormality. Dictated by : MD Allyssa ROBINS APRN.MACHINE CELL TUBER documented in this encounter [facility] 04-22-2022 History and physical note Images from the original note were not included. History and Physical Patient: Teagan Vaughan Date: 04/22/2022 11:27 AM Attending Physician: Andrea Laura MD Chief Complaint: left lower lobe NSCLC HPI: Teagan Vaughan is a 71 y.o. female never smoker with a past medical history significant for COPD who is referred to our office by Dr. Jose ([place]) for a new diagnosis of left lower [...] limits her activity. She denies history of DC, stroke, blood thinners, chest surgery, pneumothorax, or [...] Inject under the skin once a week. uczfkfycozb-fqkmjbsxr-Xcovft 100-62.5-25 MCG/ACT Aerosol Powder, breath activated inhaler [...] accurately reflects our care. Andrea Laura MD [facility] 04-22-2022 History and physical note Images from the original note were not included. History and Physical Patient: Teagan Vaughan Date: 04/22/2022 11:27 AM Attending Physician: Andrea Laura MD Chief Complaint: left lower lobe NSCLC HPI: Teagan Vaughan is a 71 y.o. female never smoker with a past medical history significant for COPD who is referred to our office by Dr. Jose ([place]) for a new diagnosis of left lower [...] limits her activity. She denies history of DC, stroke, blood thinners, chest surgery, pneumothorax, or [...] Inject under the skin once a week. nntnsoxtihq-omkbifwlx-Iimsmz 100-62.5-25 MCG/ACT Aerosol Powder, breath activated inhaler [...] discussed with Andrea Laura MD. Renuka Meadows, COURT STENOGRAPHER-MACHINE CELL TUBER #[id number] Associated attestation - Andrea Laura MD - [...] Andrea Laura MD documented in this encounter [facility] 02-17-2022 History of Present illness Narrative [...] - patient awaiting lung ct results with messenger office. Allyssa Singletary APRN.CNP documented in this encounter [facility] Malignant neoplasm of lower lobe of left lung- Primary Preoperative evaluation to rule out surgical contraindication Other specified pre-operative examination Other specified diabetes mellitus without complication, without long-term current use of insulin Hypertension, unspecified type [facility] Sinobronchitis- Primary Unspecified sinusitis (chronic) Rhonchi at both lung bases [facility] Diagnosis Asthma with COPD with exacerbation (HCC) (HCC)- Primary Chronic obstructive asthma with exacerbation URI, acute Acute upper respiratory infections of unspecified site documented in this encounter [facility] Instructions Name Dates Details BMI 39.0-39.9,adult [...] DATE CREATED AUTHOR AUTHOR'S ORGANIZ ATION 01/22/2023 [facility] DATE CREATED AUTHOR AUTHOR'S ORGANIZ ATION 05/03/2023 [facility] Source Comments (unrecognize d section and content) In the event this informatio n is protected by the Federal Confidentiality of Alcohol and Drug Abuse Patient Records regulations: The Federal rules restrict any use of the information to criminally investigate or prosecute any alcohol or drug abuse patient.[facility] the event this information is protected by the Federal Confidentiality of Alcohol and Drug Abuse Patient Records regulations: The Federal rules restrict any use of the information to criminally investigate or prosecute any alcohol or drug abuse patient.[facility] the event this information is protected by the Federal Confidentiality of Alcohol and Drug Abuse Patient Records regulations: The Federal rules restrict any use of the information to criminally investigate or prosecute any alcohol or drug abuse patient.[facility] Reason for Visit (unrecogniz ed section and content) Reason Comments New Patient Pulmonary Nodule Specialty Diagnoses / Procedures Referred By Lizbet sr Referred To Contact Thoracic Surgery Diagnoses 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 Kriss Lee, [facility] [address] [place] [address] [facility] [address] [place] [address] Referral ID Status Reason Start Date Expiration Date V isits Requested Visits Authorized [id number] New Request 03/31/2022 04/25/2023 1 1 Reason Comments Cough Cough and congestion days x5 Reason Comments Fever JONES, body chills, cou gh x 6 days Care Teams (unrecognized sec tion and content) Mathematics Department Chair Relationship Specialty Start Date End Date Tiffanie Sharma MD [address] [place] [address] PCP - General Family Medicine 04/22/22 Alejandra Hyatt, RN Registered Nurse 04/01/22 Rosa Yesicaabdullahi Orlin, [facility] [address] [place], [place] [address] Oncologist Hematology 04/01/22 Mathematics Department Chair Relationship Specialty Start Date End Date Tiffanie Sharma MD [address] [place] [address] PCP - General Family Medicine 05/12/21 Mathematics Department Chair Relationship Specialty Start Date End Date Tiffanie Sharma MD [address] [place], [place] [phone] PCP - General Family Medicine 05/12/21 FOR [...] BE BASED ON THE PRIMARY CLINICAL RECORDS. [facility] [facility]. provides no warranty or guarantee of the accuracy or completeness of information in this document.
[2023-05-08] MEDS: APIXABAN 5 MG TABLET PO (23:30)
[2023-05-08] MEDS: Zolpidem Tartrate 5 MG Tablet PO (23:30)
[2023-05-09] VITALS (10 sets, daily range): BP systolic 152–158; BP diastolic 62–96; PULSE 77–92; RESP 17–20; TEMP 36.6–37; O2SAT 95–97
[2023-05-09] MEDS: levoFLOXacin 750 MG Tablet PO (06:14)
[2023-05-09] MEDS: Levothyroxine 25 MCG TABLET PO (06:14)
[2023-05-09] MEDS: Ipratropium/Albuterol Sulfate 3 ML AMPUL.NEB INHALATION ×4 (07:35→19:36)
[2023-05-09] MEDS: predniSONE 20 MG Tablet 40 MG PO (08:26)
[2023-05-09] MEDS: Sertraline 50 MG Tablet 75 MG PO (08:27)
[2023-05-09] MEDS: Montelukast 10 MG Tablet PO (08:27)
[2023-05-09] MEDS: APIXABAN 5 MG TABLET PO ×2 (08:27→22:58)
[2023-05-09] MEDS: Metoprolol(XL)Succ 100 MG Tablet PO (08:28)
--- NOTE | 2023-05-09 08:44 | PN.HOSP_ITS ---
Reason for Visit Reason for Visit: Diagnoses Hypoxemia (05/08/23) Objective Data Objective Data Vital Signs: Vital Signs Temp Pulse Resp BP Pulse Ox O2 Del Method O2 Flow Rate 97.8 F 88 20 H 153/96 H 96 Nasal Cannula 2 05/09/23 05:30 05/09/23 08:28 05/09/23 07:30 05/09/23 05:30 05/09/23 07:55 05/09/23 07:55 05/09/23 07:55 Oxygen Flow Rate (L/min) 2 Oxygen Delivery Method Nasal Cannula Weight: 238 lb 6.4 oz Body Mass Index (BMI) 39.6 Lab / Micro Data 05/08/23 14:30 05/08/23 14:30 Labs: Laboratory Results - last 24 hr 05/08/23 14:30: WBC 10.0, RBC 4.38, Hgb 12.8, Hct 40.7, MCV 92.9, MCH 29.2, MCHC 31.4 L, RDW Std Deviation 54.1 H, RDW Coeff of Robby 16.0 H, Plt Count 265, MPV 10.6, Immature Gran % (Auto) 2.600 H, Neut % (Auto) 82.6 H, Lymph % (Auto) 6.7 L , Campbell % (Auto) 7.5, Eos % (Auto) 0.1, Baso % (Auto) 0.5, Absolute Neuts (auto) 8.3 H, Absolute Lymphs (auto) 0.67 L, Nucleated RBC % 0, Sodium 139, Potassium 3.4 L, Chloride 105, Carbon Dioxide 29.0, Anion Gap 5, BUN 16, Creatinine 0.86, Estim Creat Clear Calc 73.99, Est GFR (MDRD) Af Amer 83, Est GFR (MDRD) Non-Af 69, BUN/Creatinine Ratio 18.6, Glucose 129 H, Calcium 9.2, Troponin I High Sens 6, B-Natriuretic Peptide 23.7 Micro: Microbiology 05/08/23 20:22 Mucosa - Nasopharyngeal Respiratory Panel (PCR) - Final 05/08/23 14:30 Mucosa - Nose SARS-CoV-2, Influenza & RSV (PCR) - Final Radiography Diagnostic Testing: Radiology Impression Chest CTA 05/08/23 14:21 IMPRESSION: No demonstrated pulmonary embolism or arterial dissection. Stable left lower lobe pulmonary nodules measuring up to 9.3 mm. Emphysema. Bilateral groundglass opacities may reflect mild edema Atherosclerosis. Electronically Signed: Christina Fatima MD at 16:18 EST , Physical Exam Narrative Seen and examined. Patient is stated she had mainly shortness of breath and felt like chills. Mild cough but no other URI symptoms. Shortness of breath is better. General: Alert, Oriented x3, Cooperative HEENT: Atraumatic, PERRLA, EOMI, Normocephalic Oral: No Gingival or Mucosal Lesions/ Ulcerations Neck: Supple, No JVD, Negative Carotid Bruits Chest wall/Lungs: Air entry diminished in bilateral lung bases. Mild expiratory rhonchi and wheezing Cardiovascular: Regular rate, Regular Rhythm, Normal S1, Normal S2, No M/G/R Abdomen: Bowel Sounds Present, Soft, Non Tender, Non-Distended : No dysuria. No renal angle tenderness. No suprapubic tenderness. Extremities: No edema, Capillary Refill Less than 3 Seconds Skin: No rashes, No breakdown Musculoskeletal: No Tenderness to Palpation of Joints or Extremities Neurological: Cranial nerves II-XII grossly intact, DTR 2+/4. No acute focal neurological deficit. Psych/Mental Status: Normal Affect, Appropriate. Assessment & Plan Assessment/Plan (1) Hypoxia: PLAN: Plan 72-year-old female with prior history of adenocarcinoma of the left lobe of the lung, asthma/COPD, hypertension, hypothyroidism, recent DVT came to ED for 4 to 5 days of generalized weakness, shortness of breath and cough. 1. Acute on chronic Hypoxic respiratory failure most likely due to COPD exacerbation: Chest CTA was done which shows no demonstrated PE. Stable left lower lobe pulmonary nodule measuring 9.3 mm. Emphysema. Patient is being managed on scheduled bronchodilator, prednisone, Mucinex, incentive spirometry and Pep. Patient discharged on levofloxacin -DuoNeb, albuterol as needed - on Levofloxacin 750 mg daily she had previously responded to this medication and has had repeated episodes of hospitalization and antibiotic use in the past. Keep pulse ox about 90% - 2. Clinical stage IA2 (cT1b cN0 M0) adenocarcinoma of the lower lobe of the left lung status post CT chest for lung cancer screening (01/07/2022), CT-guided lung biopsy left lower lobe lesion (03/16/2022), PET scan (03/25/2022), evaluation by medical oncology (03/30/2022), PFTs (04/14/2022), and Brain MRI (04/15/2022). From 05/18/2022 ? 05/27/2022 she completed lung SBRT. She is presently on close surveillance imaging studies not on any therapy. Patient follows oncologist Dr. Carrero/Dr. Kriss Lee. Patient has history o f 40 pack years of smoking quit in March 01, 2007 3. Hypothyroidism: Continue levothyroxine 4. Depression continue Zoloft, zolpidem 5. Acute DVT in the left external iliac vein, common femoral vein, profundofemoral vein: Continue Eliquis 6. ISIDRO: Continue home BiPAP therapy Clinical Impression(s) from Imaging Studies Chest CTA 05/08/23 14:21 IMPRESSION: No demonstrated pulmonary embolism or arterial dissection. Stable left lower lobe pulmonary nodules measuring up to 9.3 mm. Emphysema. Bilateral groundglass opacities may reflect mild edema Atherosclerosis. Charges/Coding Visit Charges Inpatient E&M: 15720 Subs Hosp L2
[2023-05-09] MEDS: Acetaminophen 325 MG Tablet 650 MG PO (17:08)
[2023-05-09] MEDS: 0.9% Saline Lock 10 ML Syringe IV (17:17)
[2023-05-09] MEDS: Zolpidem Tartrate 5 MG Tablet PO (22:58)
[2023-05-09] MEDS: guaiFENesin/D-Methorphan TAB.SR.12H 2 TABLET PO (22:58)
[2023-05-10] MEDS: levoFLOXacin 750 MG Tablet PO (05:49)
[2023-05-10] MEDS: Levothyroxine 25 MCG TABLET PO (05:49)
[2023-05-10 06:00] VITALS: BP 146/86; PULSE 85; RESP 18; TEMP 36.6; O2SAT 95
[2023-05-10 07:30] VITALS: PULSE 81; RESP 16; O2SAT 96
[2023-05-10] MEDS: Ipratropium/Albuterol Sulfate 3 ML AMPUL.NEB INHALATION ×2 (07:30→11:41)
[2023-05-10] MEDS: predniSONE 20 MG Tablet 40 MG PO (08:47)
[2023-05-10] MEDS: guaiFENesin/D-Methorphan TAB.SR.12H 2 TABLET PO (08:48)
[2023-05-10] MEDS: Montelukast 10 MG Tablet PO (08:48)
[2023-05-10] MEDS: APIXABAN 5 MG TABLET PO (08:48)
[2023-05-10] MEDS: Sertraline 50 MG Tablet 75 MG PO (08:48)
[2023-05-10 08:49] VITALS: BP 149/86; PULSE 92
[2023-05-10] MEDS: Metoprolol(XL)Succ 100 MG Tablet PO (08:49)
[2023-05-10 08:52] VITALS: BP 149/86; PULSE 92; RESP 18; TEMP 36.6; O2SAT 97
[2023-05-10 11:45] VITALS: PULSE 91; RESP 16; O2SAT 90
--- NOTE | 2023-05-10 11:53 | DCINST_ITS ---
Discharge Instructions Diet Discharge Diet: No restrictions Activity Discharge Activity: Return to Normal Activity Weight Bearing Status: Weight bearing as tolerated Dressing / Incision Call your doctor if you observe: Fever of 101 or Higher, Coldness, Increased Pain, Numbness or Tingling, Change in Color, Inability to urinate, Inability to have a bowel movement, Using more than 1 pad per hour, Shortness of breath, Dizziness, Fainting spells, Swelling in the ankles, Chest pain, Prolonged hiccupping, Increased palpitations (irregular heartbeat) and Calf discomfort Follow Up Care When: IN 2 WEEKS Test Results: Test results from this visit will be discussed in further detail at your follow- up appointment, if applicable. Discharge Plan Admission Admit Date/Time: 05/08/23 17:04 Attending Provider: Jorge Sheehan Primary Care Provider: Tiffanie Sharma Consulting Providers: Renetta Carter Discharge Orders/Prescriptions Prescriptions: New Mucinex DM 30-600 mg Tablet Extended Release 12 Hr 2 tab PO BID 7 Days Qty: 28 0RF levofloxacin 750 mg Tablet 750 mg PO DAILY@0600 1 Days Qty: 1 0RF prednisone 10 mg tablet 10 mg PO DAILY Qty: 30 0RF Rx Instructions: 40 mg for 3 days 30 mg for 3 days, 20 mg for 3 days,and 10 mg for 3 days Continued rizatriptan [Maxalt] 10 mg tablet 10 mg PO ONCE PRN (Reason: Migraine Symptoms) zolpidem [Ambien] 10 mg tablet 10 mg PO QHS (DME) Handicap Placcard Qty: 1 0RF Rx Instructions: Length of Time: 36 months Xolair 150 mg/mL syringe 300 mg SC Q4W Qty: 2 11RF Patient Comments: last taken 05/05 Rx Instructions: requires multiple injection sites; do not exceed 150 mg per injection site folic acid 20 mg capsule 20 mg PO DAILY albuterol sulfate 1.25 mg/3 mL solution for nebulization 1.25 mg INHALATION Q4H PRN (Reason: COPD J44.9) Qty: 180 6RF methotrexate sodium 5 mg tablet 5 mg PO QWEEK Patient Comments: Saturdays Rx Instructions: Takes 8 tablets Qweek levothyroxine 25 MCG tablet 25 mcg PO DAILY Patient Comments: thyroid montelukast 10 MG tablet 10 mg PO DAILY Patient Comments: allergies Eliquis 5 mg tablet 5 mg PO BID metoprolol succinate 50 mg tablet extended release 24 hr 100 mg PO DAILY hydrocodone-acetaminophen 5-325 mg tablet 1 tab PO BID PRN PRN (Reason: pain) sertraline 50 mg tablet 75 mg PO DAILY Trelegy Ellipta 100-62.5-25 mcg blister with device 1 inh inhalation DAILY Qty: 60 6RF albuterol sulfate [Ventolin HFA] 90 mcg/actuation HFA aerosol inhaler 2 puff INHALATION Q4H PRN (Reason: shortness of breath) Qty: 1 6RF Discontinued prednisone 10 mg tablet 10 mg PO DAILY doxycycline hyclate 100 mg tablet 100 mg PO BID Referrals / Follow Up: Tiffanie Sharma MD [Primary Care Provider] - Twan Maynard DO [Med Staff - Active Staff] - Within 1 Month Disposition Disposition (needs filled in before D/C Order can be placed): Home, Self Care
--- NOTE | 2023-05-10 12:01 | DS.PCM_ITS ---
Providers Date of Admission: 05/08/23 Date of Discharge: 05/10/23 Primary Care Physician: Dr. Tiffanie Sharma MD Reason For Visit: SHORTNESS OF BREATH Diagnosis Discharge Diagnosis (1) Hypoxia: Status: Acute Code(s): R09.02 - Hypoxemia Plan 72-year-old female with prior history of adenocarcinoma of the left lobe of the lung, asthma/COPD, hypertension, hypothyroidism, recent DVT came to ED for 4 to 5 days of generalized weakness, shortness of breath and cough. 1. Acute on chronic Hypoxic respiratory failure most likely due to COPD exacerbation: Chest CTA was done which shows no demonstrated PE. Stable left lower lobe pulmonary nodule measuring 9.3 mm. Emphysema. Patient is being managed on scheduled bronchodilator, prednisone, Mucinex, incentive spirometry and Pep. Patient discharged on levofloxacin -DuoNeb, albuterol as needed - on Levofloxacin 750 mg daily she had previously responded to this medication and has had repeated episodes of hospitalization and antibiotic use in the past. Keep pulse ox about 90% -CT chest reviewed. Shows stable left pulmonary nodule. Does not show any consolidation. Patient follows Dr. Maynard. Advised to keep following. Home oxygen qualification ordered. Patient had antibiotic Levaquin during hospital course therefore needs 1 more dose tomorrow and prescription given. Prescription also given for tapering dose of prednisone and Mucinex DM. 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 2. Clinical stage IA2 (cT1b cN0 M0) adenocarcinoma of the lower lobe of the left lung status post CT chest for lung cancer screening (01/07/2022), CT-guided lung biopsy left lower lobe lesion (03/16/2022), PET scan (03/25/2022), evaluation by medical oncology (03/30/2022), PFTs (04/14/2022), and Brain MRI (04/15/2022). From 05/18/2022 ? 05/27/2022 she completed lung SBRT. She is presently on close surveillance imaging studies not on any therapy. Patient follows oncologist Dr. Carrero/Dr. Kriss Lee. Patient has history of 40 pack years of smoking quit in March 01, 2007 3. Hypothyroidism: Continue levothyroxine 4. Depression continue Zoloft, zolpidem 5. Acute DVT in the left external iliac vein, common femoral vein, profundofemoral vein: Continue Eliquis 6. ISIDRO: Continue home BiPAP therapy Discharge medication reconciliation done. Discharge follow-up instructions completed. Discharge process discussed with the patient and all questions were answered to patient's satisfaction. Follow with PCP in 1 to 2 weeks Total time spent, exact 35 minutes on discharge meds reconciliation, examination, coordination of care with nurses and ancillary staff, review of imaging and blood test and discussion with the patient on follow-up instru ctions. Clinical Impression(s) from Imaging Studies Chest CTA 05/08/23 14:21 IMPRESSION: No demonstrated pulmonary embolism or arterial dissection. Stable left lower lobe pulmonary nodules measuring up to 9.3 mm. Emphysema. Bilateral groundglass opacities may reflect mild edema Atherosclerosis. Medications at Discharge Home Medications levothyroxine 25 mcg tablet 25 mcg PO DAILY 06/10/16 montelukast 10 mg tablet 10 mg PO DAILY 06/10/16 rizatriptan 10 mg tablet (Maxalt) 10 mg PO ONCE PRN Migraine Symptoms 05/28/17 zolpidem 10 mg tablet (Ambien) 10 mg PO QHS 05/28/17 Handicap Placcard #1 ea 09/07/17 omalizumab 150 mg/mL subcutaneous syringe (Xolair) 300 mg (2 mL) subcut Q4W #2 mL 12/28/19 folic acid 20 mg capsule 20 mg PO DAILY supplement 09/03/20 albuterol sulfate 1.25 mg/3 mL solution for nebulization 1.25 mg (3 mL) inhalation Q4H PRN COPD J44.9 #180 vials 07/10/21 methotrexate sodium 5 mg tablet 5 mg PO QWEEK 03/05/22 apixaban 5 mg tablet (Eliquis) 5 mg PO BID 01/13/23 fluticasone fur. 100 mcg-umeclid 62.5 mcg-vilant 25 mcg inhalat.powder (Trelegy Ellipta) 1 inh inhalation DAILY #60 ea 01/27/23 albuterol sulfate 90 mcg/actuation aerosol inhaler (Ventolin HFA) 2 puff inhalation Q4H PRN shortness of breath #1 device 03/18/23 hydrocodone-acetaminophen 5-325mg 5mg-325mg 1 tab PO BID PRN PRN pain 05/08/23 metoprolol succinate 50 mg tablet,extended release 24 hr 100 mg PO DAILY 05/08/23 sertraline 50 mg tablet 75 mg PO DAILY 05/08/23 dextromethorphan-guaifenesin 30 mg-600 mg tablet extended [id number] hr (Mucinex DM) 2 tab PO BID 7 days #28 tabs 05/10/23 levofloxacin 750 mg tablet 750 mg PO DAILY@0600 1 day #1 TAB 05/10/23 prednisone 10 mg tablet 10 mg PO DAILY #30 tabs 05/10/23 Physical Exam Narrative Seen and examined. Her symptoms of shortness of breath resolved. Mild occasional cough. Physical exam General: Alert, Oriented x3, Cooperative HEENT: Atraumatic, PERRLA, EOMI, Normocephalic Oral: No Gingival or Mucosal Lesions/ Ulcerations Neck: Supple, No JVD, Negative Carotid Bruits Chest wall/Lungs: Air entry diminished in bilateral lung bases. Mild expiratory rhonchi and wheezing Cardiovascular: Regular rate, Regular Rhythm, Normal S1, Normal S2, No M/G/R Abdomen: Bowel Sounds Present, Soft, Non Tender, Non-Distended : No dysuria. No renal angle tenderness. No suprapubic tenderness. Extremities: No edema, Capillary Refill Less than 3 Seconds Skin: No rashes, No breakdown Musculoskeletal: No Tenderness to Palpation of Joints or Extremities Neurological: Cranial nerves II-XII grossly intact, DTR 2+/4. No acute focal neurological deficit. Psych/Mental Status: Normal Affect, Appropriate. Weight / BMI Weight Weight: 238 lb 6.4 oz Body Mass Index (BMI) 39.6 ABG / Lab / Microbiology Data 05/08/23 14:30 05/08/23 14:30 Microbiology: Microbiology 05/08/23 20:22 Mucosa - Nasopharyngeal Respiratory Panel (PCR) - Final 05/08/23 14:30 Mucosa - Nose SARS-CoV-2, Influenza & RSV (PCR) - Final D/C Instructions Discharge Diet: No restrictions Weight Bearing Status: Weight bearing as tolerated Call your doctor if you observe: Fever of 101 or Higher, Coldness, Increased Pain, Numbness or Tingling, Change in Color, Inability to urinate, Inability to have a bowel movement, Using more than 1 pad per hour, Shortness of breath, Dizziness, Fainting spells, Swelling in the ankles, Chest pain, Prolonged hiccupping, Increased palpitations (irregular heartbeat) and Calf discomfort When: IN 2 WEEKS Meaningful Use Info Meaningful Use Diagnoses (Choose all that apply): None applicable Discharge Plan Admission Admit Date/Time: 05/08/23 17:04 Attending Provider: Jorge Sheehan Primary Care Provider: Tiffanie Sharma Consulting Providers: Renetta Carter Discharge Orders/Prescriptions Prescriptions: New Mucinex DM 30-600 mg Tablet Extended Release 12 Hr 2 tab PO BID 7 Days Qty: 28 0RF levofloxacin 750 mg Tablet 750 mg PO DAILY@0600 1 Days Qty: 1 0RF prednisone 10 mg tablet 10 mg PO DAILY Qty: 30 0RF Rx Instructions: 40 mg for 3 days 30 mg for 3 days, 20 mg for 3 days,and 10 mg for 3 days Continued rizatriptan [Maxalt] 10 mg tablet 10 mg PO ONCE PRN (Reason: Migraine Symptoms) zolpidem [Ambien] 10 mg tablet 10 mg PO QHS (DME) Handicap Placcard Qty: 1 0RF Rx Instructions: Length of Time: 36 months Xolair 150 mg/mL syringe 300 mg SC Q4W Qty: 2 11RF Patient Comments: last taken 05/05 Rx Instructions: requires multiple injection sites; do not exceed 150 mg per injection site folic acid 20 mg capsule 20 mg PO DAILY albuterol sulfate 1.25 mg/3 mL solution for nebulization 1.25 mg INHALATION Q4H PRN (Reason: COPD J44.9) Qty: 180 6RF methotrexate sodium 5 mg tablet 5 mg PO QWEEK Patient Comments: Saturdays Rx Instructions: Takes 8 tablets Qweek levothyroxine 25 MCG tablet 25 mcg PO DAILY Patient Comments: thyroid montelukast 10 MG tablet 10 mg PO DAILY Patient Comments: allergies Eliquis 5 mg tablet 5 mg PO BID metoprolol succinate 50 mg tablet extended release 24 hr 100 mg PO DAILY hydrocodone-acetaminophen 5-325 mg tablet 1 tab PO BID PRN PRN (Reason: pain) sertraline 50 mg tablet 75 mg PO DAILY Trelegy Ellipta 100-62.5-25 mcg blister with device 1 inh inhalation DAILY Qty: 60 6RF albuterol sulfate [Ventolin HFA] 90 mcg/actuation HFA aerosol inhaler 2 puff INHALATION Q4H PRN (Reason: shortness of breath) Qty: 1 6RF Discontinued prednisone 10 mg tablet 10 mg PO DAILY doxycycline hyclate 100 mg tablet 100 mg PO BID Referrals / Follow Up: Twan Maynard DO [Med Staff - Active Staff] - Within 1 Month Tiffanie Sharma MD [Primary Care Provider] - Disposition Disposition (needs filled in before D/C Order can be placed): Home, Self Care Charges/Coding Visit Charges Inpatient E&M: 84401 Disch Hosp >30min
--- NOTE | 2023-05-10 12:17 | PHA.DC.MC.R ---
Pharmacy [facility] has performed discharge medication reconciliation and counseling for this patient. The patient's discharge medication list was reviewed for discrepancies and discrepancies were resolved. The patient was counseled on the following discharge medications and changes in medications for homegoing were reviewed. The Reason for Use, instructions for use, and potential side effects were reviewed for all new medications. The patient's questions regarding all of their medications were answered. 1. Levofloxacin 750 mg PO Daily x1 2. Prednisone 40 mg X 3 days, 30 mg X 3 days, 20 mg X 3 days, 10 mg x 3 days 3. Mucinex DM 30-600 mg 2 tabs PO BID The patient was able to verbally demonstrate an understanding of their discharge medications. Medications at Discharge Home Medications levothyroxine 25 mcg tablet 25 mcg PO DAILY 06/10/16 montelukast 10 mg tablet 10 mg PO DAILY 06/10/16 rizatriptan 10 mg tablet (Maxalt) 10 mg PO ONCE PRN Migraine Symptoms 05/28/17 zolpidem 10 mg tablet (Ambien) 10 mg PO QHS 05/28/17 Handicap Placcard #1 ea 09/07/17 omalizumab 150 mg/mL subcutaneous syringe (Xolair) 300 mg (2 mL) subcut Q4W #2 mL 12/28/19 folic acid 20 mg capsule 20 mg PO DAILY supplement 09/03/20 albuterol sulfate 1.25 mg/3 mL solution for nebulization 1.25 mg (3 mL) inhalation Q4H PRN COPD J44.9 #180 vials 07/10/21 methotrexate sodium 5 mg tablet 5 mg PO QWEEK 03/05/22 apixaban 5 mg tablet (Eliquis) 5 mg PO BID 01/13/23 fluticasone fur. 100 mcg-umeclid 62.5 mcg-vilant 25 mcg inhalat.powder (Trelegy Ellipta) 1 inh inhalation DAILY #60 ea 01/27/23 albuterol sulfate 90 mcg/actuation aerosol inhaler (Ventolin HFA) 2 puff inhalation Q4H PRN shortness of breath #1 device 03/18/23 hydrocodone-acetaminophen 5-325mg 5mg-325mg 1 tab PO BID PRN PRN pain 05/08/23 metoprolol succinate 50 mg tablet,extended release 24 hr 100 mg PO DAILY 05/08/23 sertraline 50 mg tablet 75 mg PO DAILY 05/08/23 dextromethorphan-guaifenesin 30 mg-600 mg tablet extended [id number] hr (Mucinex DM) 2 tab PO BID 7 days #28 tabs 05/10/23 levofloxacin 750 mg tablet 750 mg PO DAILY@0600 1 day #1 TAB 05/10/23 prednisone 10 mg tablet 10 mg PO DAILY #30 tabs 05/10/23
[2023-05-10 12:31] VITALS: O2SAT 89; O2SAT 92
--- NOTE | 2023-05-10 12:37 | CASEMGMT ---
DAVE TALBOT Assessment: Face to Face with pt for initial transition planning/care coordination assessment. DAVE TALBOT introduced self and role at [facility], pt voices understanding and consents to assessment. Pt is A&O x4 and answers all questions appropriately at this time. Pt sitting on edge of bed, just finished with ambulatory pox. Pt did not qualify for oxygen although pt already has at home. Email to [employer] to verify liter flow. Care providers, pharmacy, and demographics verified/updated. Admitting Dx: SOB PCP:Edith Specialists:Zuri Maynard, pulmackenzie; Sonya, rheum; Fredi, pain mgmt Preferred Pharmacy: [facility] Insurance: [employer], [employer] Supp Prescription Benefit: yes LNOK: Oswald Woodson, Living Arrangements: Pt lives with in a two story home with 6 steps to enter. Pt reports she is I in ADL's and denies concerns at home. Transportation: Pt drives self and denies concerns with transportation. DME:oxygen through [employer], pt reports she doesn't use it other than bleed in for her pap but it is 2L cont; pox, bipap HHC/SNF: Denies hx of Pt states no concerns with going home at time of dc. Pt states no further concerns/needs. CM to follow. Advised pt to ask CM if any further question/concerns/needs arise, voices understanding. Pt Goal: Home Plan: Home Donna ACOSTA CM
== END 2023-05-10 13:16 | disposition home or self-care (01) | DRG 189 ==
LOC: ED 17:17 → MS3 17:40
PROVIDERS: Nurse Practitioner; Admitting Provider Internal Medicine; Emergency Provider Emergency Medicine; PCP Family Medicine; Visit Provider Internal Medicine
DX: J96.21 Acute and chronic respiratory failure with hypoxia (principal); I82.412 Acute embolism and thrombosis of left femoral vein; I82.492 Acute embolism and thrombosis of other specified deep vein of left lower extremity; C34.32 Malignant neoplasm of lower lobe, left bronchus or lung; J44.1 Chronic obstructive pulmonary disease with (acute) exacerbation; I82.422 Acute embolism and thrombosis of left iliac vein; I10 Essential (primary) hypertension; E03.9 Hypothyroidism, unspecified; F32.A Depression, unspecified; G47.33 Obstructive sleep apnea (adult) (pediatric); Z79.01 Long term (current) use of anticoagulants; Z79.51 Long term (current) use of inhaled steroids; Z79.899 Other long term (current) drug therapy; Z87.891 Personal history of nicotine dependence
CPT/HCPCS: 71275; 80048; 83880; 84484; 85025; 87631; 87633; 93005; 94002; 94003; 94640; 94668; 96372; 99252; 99284; 99406; Q9967; A4216; G0463; J2357

== ENCOUNTER → 2023-05-13 | Outpatient (CLI) | payer MEDICARE, OTHER, SELFPAY ==
--- NOTE | 2023-05-13 13:34 | VDLE_ITS ---
Reason For Study: HX LLE DVT RIGHT LEFT CFV is compressible, spontaneous, phasic, Lt ASV / GSV are PARTIALLY COMPRESSIBLE with competent and demonstrates normal hyperechoic intraluminal echoes consistent augmentation. with chronic SVT. Procedure . This is a venous duplex using B-mode, color CFV is PARTIALLY COMPRESSIBLE with flow and spectral Doppler. hyperechoic intraluminal echoes consistent Exam performed in department. with chronic DVT. CFV is spontaneous, phasic, The exam was diagnostic. competent and demonstrates normal Compare to study performed on 02/03/2023. augmentation. . Deep/Profunda Femoral Vein is spontaneous, phasic and compressible. FV is compressible, spontaneous, phasic, competent and demonstrates normal augmentation. POP V is compressible, spontaneous, phasic, competent and demonstrates normal augmentation. T/P Trunk is compressible. PTV is compressible. LT PerV is compressible. VL/Venous Duplex US, Unilateral Interpretation Summary Chronic deep vein thrombosis is noted in the left femoral vein. Chronic superficial vein thrombosis noted in the left great saphenous vein and accessory saphenous vein Ordering Physician: Tiffanie Sharma Referring Physician: Tiffanie Sharma Performed By: Arun Perera RVLuz
== END | disposition home or self-care (01) ==
LOC: CVS 13:34
PROVIDERS: PCP Family Medicine; Referring Provider Family Medicine; Visit Provider Family Medicine
DX: I82.512 Chronic embolism and thrombosis of left femoral vein (principal); I82.812 Embolism and thrombosis of superficial veins of left lower extremity
CPT/HCPCS: 93971

== ENCOUNTER 2023-06-08 09:22 | Outpatient (CLI) | payer MEDICARE, OTHER, SELFPAY ==
[2023-06-08 09:31] VITALS: BP 146/84; PULSE 77; RESP 18; TEMP 36.3; O2SAT 93; BMI 38.2
[2023-06-08] MEDS: Omalizumab 150 MG/ML Syringe 300 MG SQ (09:36)
== END 2023-06-08 09:23 | disposition home or self-care (01) ==
LOC: MEDOUTP 09:23
PROVIDERS: PCP Family Medicine; Referring Provider Nurse Practitioner Acute Care; Visit Provider Nurse Practitioner Acute Care
DX: J45.41 Moderate persistent asthma with (acute) exacerbation (principal)
CPT/HCPCS: 96372; J2357

== ENCOUNTER → 2023-06-17 | Outpatient (CLI) | payer MEDICARE, OTHER, SELFPAY ==
[2023-06-17 12:28] LABS: Absolute Lymphocyte Count 0.93 X10^3/uL (0.83-4.51); Absolute Neutrophil Count 3.6 X10^3/uL (2.0-7.7); Basophil# 0.02 X10^3/uL; Basophil% 0.4 % (0-1); Hematocrit 40.6 % (37-47); Hemoglobin 12.9 g/dL (12.0-15.0); Lymphocyte # 0.93 X10^3/ul (0.83-4.51); Lymphocyte % 18.5 % (19-41); Mean Corp Hgb Conc 31.8 g/dL (32-36); Mean Corpuscular Hgb 30.1 pg (27.0-32.0); Mean Corpuscular Volume 94.6 fL (81-99); Mean Platelet Vol. 11.1 fl (6.2-12.0); Monocyte# 0.46 X10^3/uL; Monocyte% 9.1 % (0-10); NRBC Flagged by Analyzer 0 % (0-5); Neutrophil # 3.59 X10^3/uL (2.7-7.7); Neutrophil % 71.4 % (47-70); Platelet Count 222 K/mm3 (150-450); RBC Distribution Width CV 15.9 % (11.6-14.6); RBC Distribution Width SD 54.8 fl (35.1-43.9); Red Blood Count 4.29 M/mm3 (4.2-5.4)
[2023-06-17 12:52] LABS: ALB/GLOB Ratio 0.9 RATIO (0.9-2.4); AST(SGOT) 26 U/L (15-37); Alanine Aminotransfer ALT/SGPT 29 U/L (13-56); Albumin, Serum 3.3 g/dL (3.2-5.0); Alkaline Phosphatase 77 U/L (45-117); Anion Gap 4 (5-15); BUN 11 mg/dL (7-18); BUN/Creat Ratio 13.3 RATIO (10-20); Chloride 107 mmol/L (98-107); Creatinine, Serum 0.82 mg/dL (0.55-1.02); EST Glomerular Filtration Rate 73 mL/min (>60); Est Glom Filt Rate - Afr Amer 88 mL/min (>60); Globulin 3.8 g/dL (2.2-4.2); Glucose 101 mg/dL (74-106); Potassium 3.9 mmol/L (3.5-5.1); Protein, Total 7.1 g/dL (6.4-8.2); Sodium Level 139 mmol/L (136-145)
== END | disposition home or self-care (01) ==
LOC: MTLAB 10:09
PROVIDERS: PCP Family Medicine; Referring Provider Internal Medicine Rheumatology; Visit Provider Internal Medicine Rheumatology
DX: M06.4 Inflammatory polyarthropathy (principal); Z79.899 Other long term (current) drug therapy
CPT/HCPCS: 36415; 80053; 85025

== ENCOUNTER 2023-07-02 10:26 | Outpatient (CLI) | payer MEDICARE, OTHER, SELFPAY ==
[2023-07-02 10:30] VITALS: BP 173/75; PULSE 78; RESP 16; TEMP 36.2; O2SAT 96
[2023-07-02] MEDS: Omalizumab 150 MG/ML Syringe 300 MG SC (10:33)
== END 2023-07-02 10:27 | disposition home or self-care (01) ==
LOC: MEDOUTP 10:26
PROVIDERS: PCP Family Medicine; Referring Provider Nurse Practitioner Acute Care; Visit Provider Nurse Practitioner Acute Care
DX: J45.41 Moderate persistent asthma with (acute) exacerbation (principal)
CPT/HCPCS: 96372; J2357

== ENCOUNTER 2023-07-29 12:23 | Outpatient (CLI) | payer MEDICARE, OTHER, SELFPAY ==
[2023-07-29 12:35] VITALS: BP 173/90; PULSE 79; RESP 16; TEMP 36.8; O2SAT 93; BMI 38.2
[2023-07-29] MEDS: Omalizumab 150 MG/ML Syringe 300 MG SQ (12:38)
== END 2023-07-29 23:59 | disposition home or self-care (01) ==
LOC: MEDOUTP 12:23
PROVIDERS: PCP Family Medicine; Referring Provider Nurse Practitioner Acute Care; Visit Provider Nurse Practitioner Acute Care
DX: J45.41 Moderate persistent asthma with (acute) exacerbation (principal)
CPT/HCPCS: 96372; J2357

== ENCOUNTER → 2023-08-19 | Outpatient (CLI) | payer MEDICARE, OTHER, SELFPAY ==
--- NOTE | 2023-08-19 08:31 | CT_ITS ---
STUDY: CT CHEST WITHOUT CONTRAST REASON FOR EXAM: Female, 72 years old. Treated left lung cancer, monitor -- please compare to prior RADIATION DOSAGE (If Supplied By Facility): CTDIvol = ( 17.04 ) mGy, DLP = ( 647.14 ) mGycm TECHNIQUE: Transaxial imaging was performed without the administration of intravenous contrast material. Multiplanar coronal and sagittal images were reformatted. Individualized dose optimization techniques were used for this CT. COMPARISON: Comparison is made with prior study dated January 15, 2023. FINDINGS: CHEST Stable small benign-appearing bilateral axillary lymph nodes. Mild degree of emphysematous changes. Mild increase in size of the nodule in the posterior left lung apex. It presently measures 3.2 mm. There is also evidence of increased nodular density in the posterior medial aspect of the superior segment of the left lower lobe as seen on axial image #32 with surrounding linear densities suggestive possible scarring. Mild scarring in the peripheral lateral aspect of the right upper lobe. Findings suggestive of a groundglass appearance in the left lower lobe with the a 1 cm spiculated nodule. This was not seen on prior study. Stable faint 3 mm noncalcified nodule in the right upper lobe as seen on axial image #23. Stable 4 mm x 7 mm irregular groundglass appearance in the lateral aspect of the right upper lobe as seen on axial image #33. Stable 7 mm x 7 mm noncalcified nodule in the posterior segment of the left lower lobe axial image #86. There is no demonstrated pleural abnormality. There are calcifications of the coronary arteries. Normal mediastinum. Normal hilar regions. Normal unenhanced pulmonary arteries. There is atherosclerotic calcification of the aortic arch. There are degenerative changes of the thoracic spine. There is no demonstrated abnormality of the visualized upper abdomen. CT/Chest without Contrast IMPRESSION: Essentially stable examination except for increased size of a nodule in the posterior left lung apex presently measuring 3.2 mm. Electronically Signed: Ariel Cleveland MD at 13:52 EDT ,
== END | disposition home or self-care (01) ==
PROVIDERS: PCP Family Medicine; Referring Provider Student in an Organized Health Care Education/Training Program; Visit Provider Student in an Organized Health Care Education/Training Program
DX: C34.32 Malignant neoplasm of lower lobe, left bronchus or lung (principal)
CPT/HCPCS: 71250

== ENCOUNTER 2023-08-26 12:53 | Outpatient (CLI) | payer MEDICARE, OTHER, SELFPAY ==
[2023-08-26 13:02] VITALS: BP 155/78; PULSE 81; RESP 16; TEMP 36.6; O2SAT 96; BMI 38.2
[2023-08-26] MEDS: Omalizumab 150 MG/ML Syringe 300 MG SQ (13:20)
== END 2023-08-26 23:59 | disposition home or self-care (01) ==
LOC: MEDOUTP 12:53
PROVIDERS: PCP Family Medicine; Referring Provider Nurse Practitioner Acute Care; Visit Provider Nurse Practitioner Acute Care
DX: J45.41 Moderate persistent asthma with (acute) exacerbation (principal)
CPT/HCPCS: 96372; J2357

== ENCOUNTER → 2023-09-09 | Outpatient (CLI) | payer MEDICARE, OTHER, SELFPAY ==
[2023-09-09 12:25] LABS: Absolute Lymphocyte Count 1.05 X10^3/uL (0.83-4.51); Absolute Neutrophil Count 4.9 X10^3/uL (2.0-7.7); Basophil# 0.03 X10^3/uL; Basophil% 0.5 % (0-1); Hematocrit 41.3 % (37-47); Hemoglobin 13.4 g/dL (12.0-15.0); Lymphocyte # 1.05 X10^3/ul (0.83-4.51); Lymphocyte % 15.9 % (19-41); Mean Corp Hgb Conc 32.4 g/dL (32-36); Mean Corpuscular Hgb 30.6 pg (27.0-32.0); Mean Corpuscular Volume 94.3 fL (81-99); Mean Platelet Vol. 11.3 fl (6.2-12.0); Monocyte# 0.55 X10^3/uL; Monocyte% 8.3 % (0-10); NRBC Flagged by Analyzer 0 % (0-5); Neutrophil # 4.93 X10^3/uL (2.7-7.7); Neutrophil % 74.4 % (47-70); Platelet Count 206 K/mm3 (150-450); RBC Distribution Width CV 14.7 % (11.6-14.6); RBC Distribution Width SD 50.4 fl (35.1-43.9); Red Blood Count 4.38 M/mm3 (4.2-5.4); White Blood Count 6.6 K/mm3 (4.4-11.0)
[2023-09-09 12:57] LABS: ALB/GLOB Ratio 0.9 RATIO (0.9-2.4); AST(SGOT) 19 U/L (15-37); Alanine Aminotransfer ALT/SGPT 22 U/L (13-56); Albumin, Serum 3.3 g/dL (3.2-5.0); Alkaline Phosphatase 78 U/L (45-117); Anion Gap 6 (5-15); BUN 10 mg/dL (7-18); BUN/Creat Ratio 12.1 RATIO (10-20); Calcium,Total 9.1 mg/dL (8.5-10.1); Chloride 106 mmol/L (98-107); Creatinine, Serum 0.83 mg/dL (0.55-1.02); EST Glomerular Filtration Rate 72 mL/min (>60); Est Glom Filt Rate - Afr Amer 87 mL/min (>60); Globulin 3.8 g/dL (2.2-4.2); Glucose 141 mg/dL (74-106); Potassium 3.6 mmol/L (3.5-5.1); Protein, Total 7.1 g/dL (6.4-8.2); Sodium Level 139 mmol/L (136-145)
== END | disposition home or self-care (01) ==
LOC: MTLAB 09:32
PROVIDERS: PCP Family Medicine; Referring Provider Internal Medicine Rheumatology; Visit Provider Internal Medicine Rheumatology
DX: M06.4 Inflammatory polyarthropathy (principal); Z79.899 Other long term (current) drug therapy
CPT/HCPCS: 36415; 80053; 85025

== ENCOUNTER → 2023-09-20 | Outpatient (CLI) | payer MEDICARE, OTHER, SELFPAY ==
--- NOTE | 2023-09-20 09:46 | VDLE_ITS ---
Reason For Study: HX DVT RIGHT LEFT CFV is compressible, spontaneous, phasic, GSV is normal. competent and demonstrates normal CFV is compressible, spontaneous, phasic, augmentation. competent, and demonstrates normal Procedure augmentation. This is a venous duplex using B-mode, color FV is compressible, spontaneous, phasic, flow and spectral Doppler. competent and demonstrates normal Exam performed in department. augmentation. The exam was diagnostic. POP V is compressible, spontaneous, phasic, Compare to study on 05/13/2023. competent and demonstrates normal augmentation. T/P Trunk is compressible. PTV is compressible. LT PerV is compressible. VL/Venous Duplex US, Unilateral Interpretation Summary Deep veins of the left lower extremity are patent and compressible segmentally. There is no evidence of left lower extremity deep vein thrombosis. The left great saphenous vein ann ears patent and compressible segmentally. Ordering Physician: Tiffanie Sharma Referring Physician: Tiffanie Sharma Performed By: Arun Perera RVT
== END | disposition home or self-care (01) ==
LOC: CVS 09:44
PROVIDERS: PCP Family Medicine; Referring Provider Family Medicine; Visit Provider Family Medicine
DX: I82.812 Embolism and thrombosis of superficial veins of left lower extremity (principal)
CPT/HCPCS: 93971

== ENCOUNTER 2023-09-23 12:49 | Outpatient (CLI) | payer MEDICARE, OTHER, SELFPAY ==
[2023-09-23 13:10] VITALS: BP 165/84; PULSE 69; RESP 16; TEMP 35.9; O2SAT 95; BMI 38.2
[2023-09-23] MEDS: Omalizumab 150 MG/ML Syringe 300 MG SQ (13:23)
== END 2023-09-23 23:59 | disposition home or self-care (01) ==
LOC: MEDOUTP 12:49
PROVIDERS: PCP Family Medicine; Referring Provider Nurse Practitioner Acute Care; Visit Provider Nurse Practitioner Acute Care
DX: J45.41 Moderate persistent asthma with (acute) exacerbation (principal)
CPT/HCPCS: 96372; J2357

== ENCOUNTER 2023-10-21 12:40 | Outpatient (CLI) | payer MEDICARE, OTHER, SELFPAY ==
[2023-10-21 12:48] VITALS: BP 153/82; PULSE 77; RESP 16; TEMP 36; O2SAT 94; BMI 38.2
[2023-10-21] MEDS: Omalizumab 150 MG/ML Syringe 300 MG SQ (13:01)
== END 2023-10-21 23:59 | disposition home or self-care (01) ==
LOC: MEDOUTP 12:40
PROVIDERS: PCP Family Medicine; Referring Provider Nurse Practitioner Acute Care; Visit Provider Nurse Practitioner Acute Care
DX: J45.41 Moderate persistent asthma with (acute) exacerbation (principal)
CPT/HCPCS: 96372; J2357

== ENCOUNTER → 2023-10-29 | Outpatient (CLI) | payer MEDICARE, OTHER, SELFPAY ==
--- NOTE | 2023-10-29 10:34 | VDUE_ITS ---
Reason For Study: Pain in right arm Right Proximal Left Proximal Right jugular vein is spontaneous, widely Left subclavian vein is spontaneous, widely patent, phasic, with no intraluminal patent, phasic, with no intraluminal echogenicity noted. echogenicity noted. Right subclavian vein is spontaneous, widely patent, phasic, with no intraluminal echogenicity noted. Right Lower Arm Right radial vein is compressible. Right ulnar vein is compressible. Right Arm Right axillary vein is spontaneous, patent, phasic, competent, compressible and demonstrates augmentation. Right brachial vein is compressible. Acute superficial abiola thrombosis is noted in the right Cephalic vein from proximal upper arm to wrist and the median cubital vein. It is NONCOMPRESSIBLE. Right basilic vein is compressible. Patient Safety Preliminary report given to Nataly ACOSTA. VL/Venous Duplex US, Unilateral Interpretation Summary Acute superficial vein thrombosis noted in the right cephalic vein throughout. Deep veins of the right upper extremity are patent and compressible segmentally . There is no evidence of deep vein thrombosis Ordering Physician: Tiffanie Sharma Referring Physician: Tiffanie Sharma Performed By: Talia Arizmendi RVT ???
== END | disposition home or self-care (01) ==
LOC: CVS 10:34
PROVIDERS: PCP Family Medicine; Referring Provider Family Medicine; Visit Provider Family Medicine
DX: M79.89 Other specified soft tissue disorders (principal); M79.601 Pain in right arm
CPT/HCPCS: 93971

== ENCOUNTER 2023-11-18 12:41 | Outpatient (CLI) | payer MEDICARE, OTHER, SELFPAY ==
[2023-11-18 12:59] VITALS: BP 167/83; PULSE 75; RESP 16; TEMP 36.3; O2SAT 95
[2023-11-18] MEDS: Omalizumab 150 MG/ML Syringe 300 MG SQ (13:03)
== END 2023-11-18 23:59 | disposition home or self-care (01) ==
LOC: MEDOUTP 12:42
PROVIDERS: PCP Family Medicine; Referring Provider Nurse Practitioner Acute Care; Visit Provider Nurse Practitioner Acute Care
DX: J45.41 Moderate persistent asthma with (acute) exacerbation (principal)
CPT/HCPCS: 96372; J2357

== ENCOUNTER → 2023-12-03 | Outpatient (CLI) | payer MEDICARE, OTHER, SELFPAY ==
[2023-12-03 12:07] LABS: Absolute Lymphocyte Count 0.85 X10^3/uL (0.83-4.51); Absolute Neutrophil Count 4.3 X10^3/uL (2.0-7.7); Basophil# 0.02 X10^3/uL; Basophil% 0.3 % (0-1); Eosinophil# 0.13 X10^3/uL; Eosinophils% 2.2 % (0-5); Hemoglobin 13.4 g/dL (12.0-15.0); Lymphocyte # 0.85 X10^3/ul (0.83-4.51); Lymphocyte % 14.2 % (19-41); Mean Corp Hgb Conc 31.9 g/dL (32-36); Mean Corpuscular Hgb 31.1 pg (27.0-32.0); Mean Corpuscular Volume 97.4 fL (81-99); Mean Platelet Vol. 11.2 fl (6.2-12.0); Monocyte# 0.65 X10^3/uL; Monocyte% 10.9 % (0-10); NRBC Flagged by Analyzer 0 % (0-5); Neutrophil # 4.29 X10^3/uL (2.7-7.7); Neutrophil % 71.7 % (47-70); Platelet Count 230 K/mm3 (150-450); RBC Distribution Width CV 15.2 % (11.6-14.6); RBC Distribution Width SD 54.3 fl (35.1-43.9); Red Blood Count 4.31 M/mm3 (4.2-5.4)
[2023-12-03 13:00] LABS: ALB/GLOB Ratio 0.9 RATIO (0.9-2.4); AST(SGOT) 23 U/L (15-37); Alanine Aminotransfer ALT/SGPT 21 U/L (13-56); Albumin, Serum 3.3 g/dL (3.2-5.0); Alkaline Phosphatase 82 U/L (45-117); Anion Gap 3 (5-15); BUN 10 mg/dL (7-18); BUN/Creat Ratio 11.8 RATIO (10-20); Calcium,Total 9.5 mg/dL (8.5-10.1); Chloride 104 mmol/L (98-107); Creatinine, Serum 0.85 mg/dL (0.55-1.02); EST Glomerular Filtration Rate 70 mL/min (>60); Est Glom Filt Rate - Afr Amer 85 mL/min (>60); Globulin 3.8 g/dL (2.2-4.2); Glucose 108 mg/dL (74-106); Potassium 3.8 mmol/L (3.5-5.1); Protein, Total 7.1 g/dL (6.4-8.2); Sodium Level 137 mmol/L (136-145)
== END | disposition home or self-care (01) ==
LOC: MTLAB 10:47
PROVIDERS: PCP Family Medicine; Referring Provider Internal Medicine Rheumatology; Visit Provider Internal Medicine Rheumatology
DX: M06.4 Inflammatory polyarthropathy (principal); Z79.899 Other long term (current) drug therapy
CPT/HCPCS: 36415; 80053; 85025

== ENCOUNTER 2023-12-17 12:52 | Outpatient (CLI) | payer MEDICARE, OTHER, SELFPAY ==
[2023-12-17 13:01] VITALS: BP 155/83; PULSE 77; RESP 16; TEMP 36.4
[2023-12-17] MEDS: Omalizumab 150 MG/ML Syringe 300 MG SQ (13:06)
== END 2023-12-17 23:59 | disposition home or self-care (01) ==
LOC: MEDOUTP 12:53
PROVIDERS: PCP Family Medicine; Referring Provider Nurse Practitioner Acute Care; Visit Provider Nurse Practitioner Acute Care
DX: J45.41 Moderate persistent asthma with (acute) exacerbation (principal)
CPT/HCPCS: 96372; J2357

== ENCOUNTER → 2023-12-20 | Outpatient (CLI) | payer MEDICARE, OTHER, SELFPAY ==
--- NOTE | 2023-12-20 12:55 | CT_ITS ---
EXAM: CT CHEST WITHOUT INTRAVENOUS CONTRAST CLINICAL INDICATION: follow up treated lung cancer -- compare to prior TECHNIQUE: Helically acquired images were obtained of the chest without intravenous contrast. This CT exam was performed using one or more of the following dose reduction techniques: automated exposure control, adjustment of the mA and/or kV according to patient size, and/or use of iterative reconstruction technique. COMPARISON: CT of the chest 08/19/2023 05/04/2022 and 01/07/2022 FINDINGS: LUNGS AND PLEURAL SPACES: Stable focal demonstrate changes involving both upper lobes of the lung and within the left lower lobe. Stable 6 mm left lower lobe pulmonary nodule. Stable diffuse centrilobular pulmonary emphysema. No pleural effusion or thickening. No pneumothorax. HEART: Normal heart size. Prominent coronary artery calcification. MEDIASTINUM: Normal. No mediastinal or hilar adenopathy. Esophagus is unremarkable. No hiatal hernia. BONES/JOINTS: No suspicious lytic or blastic abnormality. VASCULATURE: No aortic aneurysm. CT/Chest without Contrast IMPRESSION: Stable focal inflammatory changes within both lungs. No evidence of suggest residual or recurrent neoplasm. Electronically Signed: Terry Milligan MD at 14:24 EDT ,
== END | disposition home or self-care (01) ==
LOC: CT 12:54
PROVIDERS: PCP Family Medicine; Referring Provider Student in an Organized Health Care Education/Training Program; Visit Provider Student in an Organized Health Care Education/Training Program
DX: C34.32 Malignant neoplasm of lower lobe, left bronchus or lung (principal)
CPT/HCPCS: 71250

== ENCOUNTER 2024-01-14 12:25 | Outpatient (CLI) | payer MEDICARE, OTHER, SELFPAY ==
[2024-01-14 12:29] VITALS: BP 155/80; PULSE 97; RESP 18; TEMP 35.6; O2SAT 94; BMI 39.1
[2024-01-14] MEDS: Omalizumab 150 MG/ML Syringe 300 MG SQ (12:35)
== END 2024-01-14 23:59 | disposition home or self-care (01) ==
LOC: MEDOUTP 12:25
PROVIDERS: PCP Family Medicine; Referring Provider Nurse Practitioner Acute Care; Visit Provider Nurse Practitioner Acute Care
DX: J45.41 Moderate persistent asthma with (acute) exacerbation (principal)
CPT/HCPCS: 96372; J2357

== ENCOUNTER → 2024-02-01 | Outpatient (CLI) | payer MEDICARE, OTHER, SELFPAY ==
[2024-02-01 16:09] LABS: T4 Free Direct 1.25 ng/dL (0.76-1.46)
== END | disposition home or self-care (01) ==
LOC: BFHLAB 13:16
PROVIDERS: PCP Family Medicine; Referring Provider Family Medicine; Visit Provider Family Medicine
DX: E03.9 Hypothyroidism, unspecified (principal)
CPT/HCPCS: 36415; 84439; 84443

== ENCOUNTER 2024-02-11 12:24 | Outpatient (CLI) | payer MEDICARE, OTHER, SELFPAY ==
[2024-02-11 12:32] VITALS: BP 154/80; PULSE 77; RESP 16; TEMP 35.9; O2SAT 98; BMI 39.1
[2024-02-11] MEDS: Omalizumab 150 MG/ML Syringe 300 MG SQ (12:38)
== END 2024-02-11 23:59 | disposition home or self-care (01) ==
LOC: MEDOUTP 12:24
PROVIDERS: PCP Family Medicine; Referring Provider Nurse Practitioner Acute Care; Visit Provider Nurse Practitioner Acute Care
DX: J45.41 Moderate persistent asthma with (acute) exacerbation (principal)
CPT/HCPCS: 96372; J2357

== ENCOUNTER 2024-03-10 12:19 | Outpatient (CLI) | payer MEDICARE, OTHER, SELFPAY ==
[2024-03-10 12:30] VITALS: BP 168/76; PULSE 73; RESP 16; TEMP 35.7; O2SAT 98; BMI 39.1
[2024-03-10] MEDS: Omalizumab 150 MG/ML Syringe 300 MG SQ (12:33)
== END 2024-03-10 23:59 | disposition home or self-care (01) ==
LOC: MEDOUTP 12:20
PROVIDERS: PCP Family Medicine; Referring Provider Nurse Practitioner Acute Care; Visit Provider Nurse Practitioner Acute Care
DX: J45.41 Moderate persistent asthma with (acute) exacerbation (principal)
CPT/HCPCS: 96372; J2357

== ENCOUNTER 2024-04-07 11:45 | Outpatient (CLI) | payer MEDICARE, OTHER, SELFPAY ==
[2024-04-07 12:02] VITALS: BP 171/84; PULSE 77; RESP 16; TEMP 35.8; O2SAT 92; BMI 39.1
[2024-04-07] MEDS: Omalizumab 150 MG/ML Syringe 300 MG SQ (12:06)
== END 2024-04-07 23:59 | disposition home or self-care (01) ==
LOC: MEDOUTP 11:46
PROVIDERS: PCP Family Medicine; Referring Provider Nurse Practitioner Acute Care; Visit Provider Nurse Practitioner Acute Care
DX: J45.41 Moderate persistent asthma with (acute) exacerbation (principal)
CPT/HCPCS: 96372; J2357

== ENCOUNTER → 2024-04-12 | Outpatient (CLI) | payer MEDICARE, OTHER, SELFPAY ==
--- NOTE | 2024-04-12 12:42 | VDLE_ITS ---
Reason For Study Reason For Study: LLE Swelling RIGHT LEFT CFV is compressible, spontaneous, phasic, competent GSV is normal. and demonstrates normal augmentation. CFV is compressible, spontaneous, phasic, competent, Procedure and demonstrates normal augmentation. This is a venous duplex using B-mode, color flow and FV is compressible, spontaneous, phasic, competent spectral Doppler. and demonstrates normal augmentation. Exam performed in department. POP V is compressible, spontaneous, phasic, competent The exam was diagnostic. and demonstrates normal augmentation. A preliminary report was called and/or faxed to T/P Trunk is compressible. Edith's office. PTV is compressible. LT PerV is compressible. VL/Venous Duplex US, Unilateral Interpretation Summary Deep veins of the left lower extremity are patent and compressible segmentally. There is no evidence of left lower extremity deep vein thrombosis. Valvular competence appears intact within the p roximal deep venous system on the left . The left great saphenous vein appears patent and compressible segmentally. The right common femoral vein is patent and compressible . Ordering Physician: Tiffanie Sharma Referring Physician: Tiffanie Sharma Performed By: Arun Perera RVLuz
== END | disposition home or self-care (01) ==
LOC: CVS 12:41
PROVIDERS: PCP Family Medicine; Referring Provider Family Medicine; Visit Provider Family Medicine
DX: M79.89 Other specified soft tissue disorders (principal); I82.409 Acute embolism and thrombosis of unspecified deep veins of unspecified lower extremity
CPT/HCPCS: 93971

== ENCOUNTER → 2024-04-14 | Outpatient (CLI) | payer MEDICARE, OTHER, SELFPAY ==
--- NOTE | 2024-04-14 12:49 | CT_ITS ---
PROCEDURE: CHEST WITHOUT CONTRAST REASON FOR EXAM: Follow-up for treated lung cancer. TECHNIQUE: Chest CT without contrast. COMPARISON: Comparison is made with prior examination dated December 20, 2023. FINDINGS: Hardware: None. Lymph nodes: No mediastinal hilar or axillary lymphadenopathy. Heart and Vasculature: Normal heart size. No pericardial effusion. Atherosclerotic calcifications of the thoracic aorta. Thoracic aorta and pulmonary arteries have normal contours; noncontrast technique limits evaluation. Coronary Artery Calcifications: Present Lungs and Airways: Minimal residual increased markings in the posterior medial aspect of the left upper lobe as well as in the superior segment of the left lower lobe. This may represent post radiation changes. Stable 6 mm nodule in the posterior aspect of the left lower lobe as seen on axial image number 70 Pleura: No pleural effusion. No pneumothorax. Upper Abdomen: Small hiatal hernia. Bones: Bone windows are unremarkable. CT/Chest without Contrast IMPRESSION: Mild residual increased markings in the posterior medial aspect of the left upp er lobe as well as in the superior segment of the left lower lobe. Stable 6 mm nodule in the left lower lobe as seen on axial im age number 70 One or more dose reduction techniques were used (e.g., Automated exposure contr ol, adjustment of the mA and/or kV according to patient size, use of iterative reconstruction technique). Reading Location: [id number]
[2024-04-14 13:44] LABS: Absolute Neutrophil Count 6.3 X10^3/uL (2.0-7.7); Basophil# 0.03 X10^3/uL; Basophil% 0.4 % (0-1); Eosinophil# 0.01 X10^3/uL; Eosinophils% 0.1 % (0-5); Hemoglobin 13.1 g/dL (12.0-15.0); Lymphocyte % 12.5 % (19-41); Mean Corpuscular Hgb 31.3 pg (27.0-32.0); Mean Corpuscular Volume 97.9 fL (81-99); Mean Platelet Vol. 11.2 fl (6.2-12.0); Monocyte# 0.63 X10^3/uL; Monocyte% 7.9 % (0-10); NRBC Flagged by Analyzer 0 % (0-5); Neutrophil # 6.27 X10^3/uL (2.7-7.7); Neutrophil % 78.2 % (47-70); Platelet Count 224 K/mm3 (150-450); RBC Distribution Width CV 14.6 % (11.6-14.6); RBC Distribution Width SD 52.3 fl (35.1-43.9); Red Blood Count 4.19 M/mm3 (4.2-5.4)
[2024-04-14 14:09] LABS: AST(SGOT) 29 U/L (15-37); Alanine Aminotransfer ALT/SGPT 31 U/L (13-56); Albumin, Serum 3.4 g/dL (3.2-5.0); Alkaline Phosphatase 75 U/L (45-117); Anion Gap 5 (5-15); BUN 12 mg/dL (7-18); BUN/Creat Ratio 15.2 RATIO (10-20); Calcium,Total 9.2 mg/dL (8.5-10.1); Chloride 107 mmol/L (98-107); Creatinine, Serum 0.79 mg/dL (0.55-1.02); EST Glomerular Filtration Rate 76 mL/min (>60); Est Glom Filt Rate - Afr Amer 92 mL/min (>60); Globulin 3.5 g/dL (2.2-4.2); Glucose 111 mg/dL (74-106); Potassium 3.6 mmol/L (3.5-5.1); Protein, Total 6.9 g/dL (6.4-8.2); Sodium Level 140 mmol/L (136-145)
[2024-04-14 14:15] LABS: International Normalized Ratio 2.2; Prothrombin Time (Protime)PT. 24.7 SECONDS (11.7-14.9)
== END | disposition home or self-care (01) ==
PROVIDERS: Internal Medicine Rheumatology; PCP Family Medicine; Referring Provider Student in an Organized Health Care Education/Training Program; Visit Provider Student in an Organized Health Care Education/Training Program
DX: C34.32 Malignant neoplasm of lower lobe, left bronchus or lung (principal); I82.409 Acute embolism and thrombosis of unspecified deep veins of unspecified lower extremity; M06.4 Inflammatory polyarthropathy
CPT/HCPCS: 36415; 71250; 80053; 85025; 85610

== ENCOUNTER 2024-04-19 09:18 | Outpatient (RCR) | payer MEDICARE, OTHER, SELFPAY ==
[2024-04-19 12:45] LABS: International Normalized Ratio 3.2; Prothrombin Time (Protime)PT. 33.2 SECONDS (11.7-14.9)
== END 2024-04-28 23:59 ==
LOC: BFHLAB 09:18
PROVIDERS: PCP Family Medicine; Visit Provider Family Medicine
DX: I82.409 Acute embolism and thrombosis of unspecified deep veins of unspecified lower extremity (principal)
CPT/HCPCS: 36415; 85610

== ENCOUNTER 2024-04-26 11:33 | Outpatient (RCR) | payer MEDICARE, OTHER, SELFPAY ==
[2024-04-26 15:33] LABS: International Normalized Ratio 4.4
== END 2024-04-28 23:59 ==
LOC: BFHLAB 11:33
PROVIDERS: PCP Family Medicine; Visit Provider Family Medicine
DX: I82.409 Acute embolism and thrombosis of unspecified deep veins of unspecified lower extremity (principal)
CPT/HCPCS: 36415; 85610

== ENCOUNTER 2024-05-03 10:34 | Outpatient (RCR) | payer MEDICARE, OTHER, SELFPAY ==
[2024-05-03 13:58] LABS: International Normalized Ratio 2.2; Prothrombin Time (Protime)PT. 24.6 SECONDS (11.7-14.9)
== END 2024-05-29 23:59 ==
LOC: BFHLAB 10:34
PROVIDERS: PCP Family Medicine; Visit Provider Family Medicine
DX: I82.409 Acute embolism and thrombosis of unspecified deep veins of unspecified lower extremity (principal)
CPT/HCPCS: 36415; 85610

== ENCOUNTER 2024-05-05 10:54 | Outpatient (CLI) | payer MEDICARE, OTHER, SELFPAY ==
[2024-05-05 11:19] VITALS: BP 169/83; PULSE 85; RESP 16; TEMP 36.3; O2SAT 93; BMI 39.9
[2024-05-05] MEDS: Omalizumab 150 MG/ML Syringe 300 MG SQ (11:37)
== END 2024-05-05 23:59 | disposition home or self-care (01) ==
LOC: MEDOUTP 10:54
PROVIDERS: PCP Family Medicine; Referring Provider Nurse Practitioner Acute Care; Visit Provider Nurse Practitioner Acute Care
DX: J45.41 Moderate persistent asthma with (acute) exacerbation (principal)
CPT/HCPCS: 96372; J2357

== ENCOUNTER 2024-05-18 10:06 | Outpatient (RCR) | payer MEDICARE, OTHER, SELFPAY ==
[2024-05-18 12:24] LABS: International Normalized Ratio 4.3; Prothrombin Time (Protime)PT. 42.1 SECONDS (11.7-14.9)
== END 2024-05-29 23:59 ==
LOC: BFHLAB 10:06
PROVIDERS: PCP Family Medicine; Visit Provider Family Medicine
DX: I82.409 Acute embolism and thrombosis of unspecified deep veins of unspecified lower extremity (principal)
CPT/HCPCS: 85610

== ENCOUNTER 2024-06-09 11:18 | Outpatient (CLI) | payer MEDICARE, OTHER, SELFPAY ==
[2024-06-09 11:26] VITALS: BP 143/93; PULSE 78; RESP 16; TEMP 36.8; O2SAT 93; BMI 39.9
[2024-06-09] MEDS: Omalizumab 150 MG/ML Syringe 300 MG SQ (11:29)
--- NOTE | 2024-06-09 12:32 | CT_ITS ---
PROCEDURE: EXTREMITY LOWER WITHOUT CONTRA 06/09/2024 REASON FOR EXAM: PRE OP WASC TECHNIQUE: Multiple contiguous axial images of the right knee, hip and ankle were obtained without the administration of intravenous contrast. Two-dimensional coronal and sagittal reformatted images were reconstructed. Low-dose imaging technique was utilized. One or more dose reduction techniques were used (e.g., Automated exposure control, adjustment of the mA and/or kV according to patient size, use of iterative reconstruction technique). COMPARISON: None FINDINGS: See impression CT/Extremity Lower without Contra IMPRESSION: Tricompartmental right knee osteoarthritis, severe in the medial compartment in cluding [id number] articulation. Negative for acute fracture or malalignment. No significant right knee joint effusion. Sma ll Ordaz's cyst. Mild right hip osteoarthritis. Distal colonic diverticulosis. Calcaneal enthesopathy. Reading Location: [facility]
== END 2024-06-09 23:59 | disposition home or self-care (01) ==
PROVIDERS: PCP Family Medicine; Referring Provider Nurse Practitioner Acute Care; Visit Provider Nurse Practitioner Acute Care
DX: J45.41 Moderate persistent asthma with (acute) exacerbation (principal); M17.11 Unilateral primary osteoarthritis, right knee
CPT/HCPCS: 73700; 96372; J2357

== ENCOUNTER 2024-07-14 09:50 | Outpatient (CLI) | payer MEDICARE, OTHER, SELFPAY ==
[2024-07-14 09:55] VITALS: BP 150/72; PULSE 84; RESP 16; TEMP 35.6; O2SAT 95
[2024-07-14] MEDS: Omalizumab 150 MG/ML Syringe 300 MG SC (10:00)
== END 2024-07-14 23:59 | disposition home or self-care (01) ==
LOC: MEDOUTP 09:50
PROVIDERS: PCP Family Medicine; Referring Provider Nurse Practitioner Acute Care; Visit Provider Nurse Practitioner Acute Care
DX: J45.41 Moderate persistent asthma with (acute) exacerbation (principal)
CPT/HCPCS: 96372; J2357

== ENCOUNTER → 2024-07-17 | Outpatient (CLI) | payer MEDICARE, OTHER, SELFPAY ==
--- NOTE | 2024-07-17 08:51 | EKG12_ITS ---
Test Reason : PRE OP Blood Pressure : */* mmHG Vent. Rate : 78 BPM Atrial Rate : 78 BPM P-R Int : 170 ms QRS Dur : 140 ms QT Int : 432 ms P-R-T Axes : 63 41 39 degrees QTcB Int : 492 ms Normal sinus rhythm Right bundle branch block Abnormal ECG Confirmed by CRISTIANA OAKLEY, KOURTNEY ([id number]), make up editor ABIEL ALMARAZ ([id number]) on 07/17/2024 9:48:13 AM Referred By: Casper Lee Confirmed By: KOURTNEY ZENDEJAS MD
--- NOTE | 2024-07-17 09:00 | RAD_ITS ---
EXAM: XR Chest, 2 Views CLINICAL INDICATION: PRE OP TECHNIQUE: Frontal and lateral views of the chest. COMPARISON: No relevant prior studies available. FINDINGS: LUNGS AND PLEURAL SPACES: Unremarkable. No consolidation. No pneumothorax. HEART: Unremarkable. No cardiomegaly. MEDIASTINUM: Unremarkable. Normal mediastinal contour. BONES/JOINTS: Unremarkable. No acute fracture. RAD/Chest PA and Lateral IMPRESSION: No acute cardiopulmonary process. Reading Location: [facility]
== END | disposition home or self-care (01) ==
PROVIDERS: PCP Family Medicine; Referring Provider Orthopaedic Surgery; Visit Provider Orthopaedic Surgery
DX: Z01.818 Encounter for other preprocedural examination (principal); Z01.810 Encounter for preprocedural cardiovascular examination; Z01.811 Encounter for preprocedural respiratory examination; I10 Essential (primary) hypertension
CPT/HCPCS: 71046; 93005

== ENCOUNTER → 2024-07-20 | Outpatient (CLI) | payer MEDICARE, OTHER, SELFPAY ==
--- NOTE | 2024-07-20 17:53 | CT_ITS ---
PROCEDURE: CTA CHEST W/WO CONTRAST 07/20/2024 REASON FOR EXAM: DYSPNEA,POSSIBLE PE TECHNIQUE: CTA axial imaging of the chest with intravenous contrast. Multiplanar and multisequence images were obtained. PATIENT PREPARATION: Per protocol CONTRAST: 100 mL of Isovue 370 One or more dose reduction techniques were used (e.g., Automated exposure control, adjustment of the mA and/or kV according to patient size, use of iterative reconstruction technique). RADIATION DOSE SUMMARY: DLP: 486 mGycm . COMPARISON: 04/14/2024 FINDINGS: Neurostimulator device noted. PULMONARY ARTERIES: No evidence of pulmonary embolism. LUNGS AND PLEURA: Grossly stable left upper and lower lobe nodular and ground-glass densities. Diffuse moderate pulmonary emphysema. No new large focal consolidations. No definite pulmonary edema. No pleural effusion. No pneumothorax. Interval minimally increased 7.5 mm pulmonary nodule within the left lower lobe (series 2, image 89), previously measuring 6 mm. MEDIASTINUM: No lymphadenopathy or mass. The heart shows no acute findings. Moderate coronary atherosclerosis/stents. Calcified airways of the trachea, bronchi, and bronchioles. The aorta shows no acute findings. Mild atherosclerotic changes of the thoracic aorta. SUPRACLAVICULAR AND AXILLARY: No abnormalities seen in these regions. No mass or significant lymphadenopathy. UPPER ABDOMEN: The visualized upper abdomen is unremarkable. BONES AND SOFT TISSUES: The ribs are unremarkable. The visualized spine shows no significant acute findings. No focal bony mass lesions noted. The subcutaneous soft tissues are unremarkable. CT/CTA Chest W/WO Contrast IMPRESSION: No acute pulmonary emboli. Grossly stable left upper and lower lobe nodular and ground-glass densities. D iffuse moderate pulmonary emphysema. No new focal consolidations. Interval minimally increased 7.5 mm pulmonary nodule within the left lower lobe (series 2, image 89), previously measuring 6 mm. Reading Location: [id number]
== END | disposition home or self-care (01) ==
PROVIDERS: PCP Family Medicine; Referring Provider Family Medicine; Visit Provider Family Medicine
DX: R06.00 Dyspnea, unspecified (principal); C34.32 Malignant neoplasm of lower lobe, left bronchus or lung
CPT/HCPCS: 71275; Q9967

== ENCOUNTER → 2024-07-28 | Outpatient (CLI) | payer MEDICARE, OTHER, SELFPAY ==
[2024-07-28 12:57] LABS: Absolute Lymphocyte Count 0.86 X10^3/uL (0.83-4.51); Absolute Neutrophil Count 4.6 X10^3/uL (2.0-7.7); Basophil# 0.02 X10^3/uL; Basophil% 0.3 % (0-1); Eosinophil# 0.14 X10^3/uL; Eosinophils% 2.2 % (0-5); Hematocrit 40.7 % (37-47); Lymphocyte # 0.86 X10^3/ul (0.83-4.51); Lymphocyte % 13.7 % (19-41); Mean Corp Hgb Conc 31.9 g/dL (32-36); Mean Corpuscular Hgb 30.8 pg (27.0-32.0); Mean Corpuscular Volume 96.4 fL (81-99); Mean Platelet Vol. 11.5 fl (6.2-12.0); Monocyte# 0.61 X10^3/uL; Monocyte% 9.7 % (0-10); NRBC Flagged by Analyzer 0 % (0-5); Neutrophil % 73.5 % (47-70); Platelet Count 221 K/mm3 (150-450); RBC Distribution Width CV 14.9 % (11.6-14.6); RBC Distribution Width SD 52.4 fl (35.1-43.9); Red Blood Count 4.22 M/mm3 (4.2-5.4); White Blood Count 6.3 K/mm3 (4.4-11.0)
[2024-07-28 13:11] LABS: Albumin, Serum 3.8 g/dL (3.4-4.8); Anion Gap 11 (5-15); BUN 10 mg/dL (4-19); BUN/Creat Ratio 13.2 RATIO (10-20); Calcium,Total 9.3 mg/dL (7.6-11.0); Carbon Dioxide 24.7 mmol/L (21.0-32.0); Chloride 102 mmol/L (98-108); Creatinine, Serum 0.78 mg/dL (0.70-1.20); EST Glomerular Filtration Rate 81 (>60); Glucose 105 mg/dL (70-99); Potassium 3.7 mmol/L (3.3-5.1); Sodium Level 138 mmol/L (133-145)
[2024-07-28 13:14] LABS: Hemoglobin A1c 6.5 % (<=5.6)
== END | disposition home or self-care (01) ==
LOC: MTLAB 09:48
PROVIDERS: PCP Family Medicine; Referring Provider Family Medicine; Visit Provider Family Medicine
DX: Z01.818 Encounter for other preprocedural examination (principal); E11.9 Type 2 diabetes mellitus without complications; I10 Essential (primary) hypertension
CPT/HCPCS: 36415; 80048; 82040; 83036; 85025

== ENCOUNTER → 2024-08-08 | Outpatient (CLI) | payer MEDICARE, OTHER, SELFPAY ==
[2024-08-08 12:46] LABS: ALB/GLOB Ratio 1.3 RATIO (0.9-2.4); AST(SGOT) 30 U/L (<=31); Alanine Aminotransfer ALT/SGPT 22 U/L (<=34); Albumin, Serum 3.8 g/dL (3.4-4.8); Alkaline Phosphatase 82 U/L (35-104); Anion Gap 11 (5-15); BUN 10 mg/dL (4-19); BUN/Creat Ratio 13.9 RATIO (10-20); Calcium,Total 9.3 mg/dL (7.6-11.0); Carbon Dioxide 26.6 mmol/L (21.0-32.0); Chloride 102 mmol/L (98-108); Creatinine, Serum 0.71 mg/dL (0.70-1.20); EST Glomerular Filtration Rate 90 (>60); Globulin 2.9 g/dL (2.2-4.2); Glucose 147 mg/dL (70-99); Potassium 3.7 mmol/L (3.3-5.1); Protein, Total 6.7 g/dL (5.9-8.4); Sodium Level 139 mmol/L (133-145); Total Bilirubin 0.66 mg/dL (0.00-1.30)
== END | disposition home or self-care (01) ==
LOC: MTLAB 10:49
PROVIDERS: PCP Family Medicine; Referring Provider Internal Medicine Rheumatology; Visit Provider Internal Medicine Rheumatology
DX: M06.4 Inflammatory polyarthropathy (principal); Z79.899 Other long term (current) drug therapy; M35.00 Sjogren syndrome, unspecified
CPT/HCPCS: 36415; 80053

== ENCOUNTER 2024-08-11 11:17 | Outpatient (CLI) | payer MEDICARE, OTHER, SELFPAY ==
[2024-08-11 11:30] VITALS: BP 162/80; PULSE 72; RESP 16; TEMP 36.4; O2SAT 95
[2024-08-11] MEDS: Omalizumab 150 MG/ML Syringe 300 MG SQ (11:56)
== END 2024-08-11 23:59 | disposition home or self-care (01) ==
LOC: MEDOUTP 11:17
PROVIDERS: PCP Family Medicine; Referring Provider Nurse Practitioner Acute Care; Visit Provider Nurse Practitioner Acute Care
DX: J45.41 Moderate persistent asthma with (acute) exacerbation (principal)
CPT/HCPCS: 96372; J2357

== ENCOUNTER 2024-08-15 14:09 | Observation (INO) | payer MEDICARE, OTHER, SELFPAY ==
[2024-08-03 14:19] LABS: Magnesium 2.1 mg/dL (1.5-2.2)
--- NOTE | 2024-08-03 17:03 | PAT.ANESEVAL ---
Pre-Assessment Diagnosis/Proposed Procedure Planned Operative Procedure(s): RIGHT TOTAL KNEE REPLACEMENT Anesthesia History Anesthesia History - [employer]: Anesthesia History - [employer] Hx Hospitalization No 08/01/24 14:25 Any Problems With Anesthesia No 08/01/24 14:25 Cholinesterase deficiency No 08/01/24 14:25 You/Your Family Experience No 08/01/24 14:25 fever (hyperthermia) with Relationship Recent Exposure to Contagious Disease Does patient have nerve No 08/01/24 14:25 stimulator Patient instructed to have device shut off --Does patient have Pacemaker or ICD? When Was Last Pacemaker Check QUESTION #4 FULL TEXT: You/Your Family Experience fever (hyperthermia) with Anesthesia Last Oral Intake Last Oral intake: Last Oral Intake NPO since Meds taken in AM with sips of water? Meds patient instructed to take am of surgery PONV PONV - [employer]: PONV - [employer] Female Yes 08/01/24 14:25 HX of Motion Sickness No 08/01/24 14:25 HX of N/V After Surgery No 08/01/24 14:25 Non-Smoker Yes 08/01/24 14:25 Duration of Surgery greater Yes 08/01/24 14:25 than 60 minutes Number of Risk Factors 3 08/01/24 14:25 PONV Score Moderate Risk 08/01/24 14:25 Height & Weight Height & Weight: Anesthesia: Height & Weight Height 5 ft 5 in 07/05/24 08:03 Respiratory Assessment Respiratory Assessment - [employer]: Respiratory Tract Infection Hx - [employer] Hx Respiratory Tract Infection No 08/01/24 14:25 STOP Sleep Apnea STOP Sleep Apnea - [employer]: STOP Sleep Apnea - [employer] Hx Hypertension Yes 08/01/24 14:25 Hx Sleep Apnea Yes 08/01/24 14:25 CPAP No 08/01/24 14:25 BIPAP Yes 08/01/24 14:25 Do you snore loudly (louder than talking or can be heard Do you often feel tired/ fatigued/ sleepy during daytime? Has anyone observed you stop breathing during sleep? STOP Results Positive 08/01/24 14:25 QUESTION #5 FULL TEXT : Do you snore loudly (louder than talking or can be heard through closed doors)? 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 Specify any problems Hx of Preganancy in last 3 No 08/01/24 14:25 Months Nurse Filling Out Transfusion EHMAN 08/01/24 14:25 & Questions: Date: 08/01/24 08/01/24 14:25 Time: 14:32 08/01/24 14:25 Patient unable to answer at this time (ie. confused, unrespo /Reproduction History /Reproductive History - [employer]: /Reproductive Hx- [employer] Hx Now Gestational Age (in weeks): EDC: Hx Hx Para Hx Section SAB PFSH Medical History Wears glasses Cancer Thyroid disease Ambulates with cane Arthritis Easy bruising DVT (deep venous thrombosis) Migraine headache Former smoker BiPAP (biphasic positive airway pressure) dependence Sleep apnea History of Holter monitoring History of echocardiogram Spinal cord stimulator status Depression Pneumonia Hypoxia Fatigue Shortness of breath Asthma COPD (chronic obstructive pulmonary disease) Allergic rhinitis Postnasal drip Cough HTN (hypertension) BMI 37.0-37.9, adult Hypothyroidism Acute asthma exacerbation Home Medications ?Medication ?Instructions ?Recorded ?Last Taken ?Type levothyroxine 25 mcg tablet 25 mcg PO DAILY 06/10/16 05/30/16 History montelukast 10 mg tablet 10 mg PO DAILY 06/10/16 06/10/16 08:00 History rizatriptan 10 mg tablet (Maxalt) 10 mg PO ONCE PRN Migraine Symptoms 05/28/17 Unknown History zolpidem 10 mg tablet (Ambien) 10 mg PO QHS 05/28/17 Unknown History Handicap Placcard #1 ea 09/07/17 Unknown Rx omalizumab 150 mg/mL subcutaneous 300 mg (2 mL) subcut Q4W #2 mL 12/28/19 07/14/24 Rx syringe (Xolair) folic acid 20 mg capsule 20 mg PO DAILY supplement 09/03/20 Unknown History albuterol sulfate 1.25 mg/3 mL 1.25 mg (3 mL) inhalation Q4H PRN 07/10/21 Unknown Rx solution for nebulization COPD J44.9 #180 vials metoprolol succinate 50 mg 100 mg PO DAILY 05/08/23 Unknown History tablet,extended release 24 hr sertraline 50 mg tablet 75 mg PO DAILY 05/08/23 Unknown History albuterol sulfate 90 mcg/actuation 2 puff inhalation Q4H PRN 03/22/24 Unknown Rx aerosol inhaler (Ventolin HFA) shortness of breath #1 device budesonide-formoterol HFA 160 2 inh inhalation BID #1 ea 03/22/24 Unknown Rx mcg-4.5 mcg/actuation aerosol inhaler (Symbicort) hydroxychloroquine 200 mg tablet 200 mg PO DAILY 03/22/24 Unknown History methotrexate sodium 2.5 mg tablet 20 mg PO QWEEK 03/22/24 Unknown History tiotropium bromide 2.5 2 inh inhalation QDAY #1 ea 03/22/24 Unknown Rx mcg/actuation mist for inhalation (Spiriva Respimat) apixaban 5 mg tablet (Eliquis) 5 mg PO BID 06/09/24 Unknown History Allergy/AdvReac Type Severity Reaction Status Date / Time No Known Allergies Allergy Verified 08/01/24 14:19 Family History (Reviewed 07/05/24 @ 09:08 by Marta Butts PARTNER MARKETING MANAGER, PARTNER MARKETING MANAGER-C) Mother Ovarian cancer Brother Brain cancer Grandmother Breast cancer Surgical History History of back surgery H/O thumb surgery H/O: hysterectomy History of appendectomy TMJ surgery Social History household members: spouse Smoking Status: Former smoker quit date: 03/01/07 pack-years: 40 Tobacco: How many years used: 40 second hand exposure: Yes alcohol intake: never substance use type: does not use caffeine: Yes Type: coffee Number of servings: 1 Audit: Pertinent Findings Pertinent Findings EKG Perinent findings: July 17, 2024. Normal sinus rhythm. Right bundle branch block. Pulmonary function results/spirometer pertinent findings: April 14, 2022. Irreversible severe large airway obstructive ventilatory defect resulting in air trapping with hyperinflation, and symmetric reduction in diffusing capacity. Compared to pulmonary function test from June 14, 2017 there has been a significant improvement in spirometry and DLCO. Recommendation Anesthesia Recommendation Anesthesia recommendation: OPTIMIZED for anesthesia
[2024-08-15] VITALS (14 sets, daily range): BP systolic 141–171; BP diastolic 69–99; PULSE 74–88; RESP 16; TEMP 36.1–37.3; O2SAT 92–99; BMI 41.4
[2024-08-15] MEDS: Lactated Ringers 1,000 ML 15 ML IV ×2 (10:39→12:29)
[2024-08-15] MEDS: Gabapentin 600 MG Tablet PO (10:39)
[2024-08-15] MEDS: Magnesium 1 GM over 15 mins IV (10:39)
[2024-08-15] MEDS: Celecoxib 200 MG Capsule 400 MG PO (10:40)
[2024-08-15] MEDS: Acetaminophen 500 MG Tablet 1000 MG PO ×2 (10:40→18:18)
--- NOTE | 2024-08-15 10:55 | PCM.PRE.AN2 ---
ASA Classification* ASA Classification ASA Classification: 3 (Severe COPD/Asthma, BMI > 40, hx DVT, hx Lung Cancer, ISIDRO ) Assessment & Plan Anesthesia* Anesthesia Assessment Anesthesia Assessment: Discussed sedation and/or anesthesia options, risks, benefits, and alternatives with patient/parents/legal guardian/POA. Questions invited. The patient/parents/legal guardian/POA seems to understand and agrees to proceed with anesthesia plan. Reviewed the physical assessment, medical history, allergy history and patient home medications list prior to surgery/procedure/anesthetic and documented any changes. Performed airway and anesthesia risk assessments. Anesthesia Type Anesthesia Type: General (Duoneb to be given preop, already ordered. We will proceed with GA as patient has a hx of lumbar fusion) and Block (Informed consent for ACB (R) obtained. Risks/benefits/alternatives explained. Patient verbalized understanding and gave informed consent. ) History Source History Obtained from:: Patient and Chart Anesthesia Focused Assessment* Temperature: 98.2 F Pulse Rate: 87 Blood Pressure: 169/88 Respiratory Rate: 16 Pulse Ox: 95 Airway Assessment Mouth opens: >3 cm Mallampati Score: II Teeth Condition: Intact Neck Range of motion (ROM): Full ROM Labs Anesthesia Preop lab: CBC WBC 6.3 K/mm3 (4.4-11.0) 07/28/24 09:52 07/28/24 RBC 4.22 M/mm3 (4.2-5.4) 07/28/24 09:52 07/28/24 Hgb 13.0 g/dL (12.0-15.0) 07/28/24 09:52 07/28/24 Hct 40.7 % (37-47) 07/28/24 09:52 07/28/24 Plt Count 221 K/mm3 (150-450) 07/28/24 09:52 07/28/24 CHEMISTRY Potassium 3.7 mmol/L (3.3-5.1) 08/08/24 10:54 08/08/24 Sodium 139 mmol/L (133-145) 08/08/24 10:54 08/08/24 Magnesium 2.1 mg/dL (1.5-2.2) 08/03/24 10:00 08/03/24 BUN 10 mg/dL (4-19) 08/08/24 10:54 08/08/24 Creatinine 0.71 mg/dL (0.70-1.20) 08/08/24 10:54 08/08/24 Glucose 147 mg/dL (70-99) H 08/08/24 10:54 08/08/24 TSH 2.130 uIU/mL (0.358-3.740) 02/01/24 13:17 02/01/24 COAG PT 42.1 SECONDS (11.7-14.9) H 05/18/24 10:08 05/18/24 Pre-Assessment Diagnosis/Proposed Procedure Planned Operative Procedure(s): RIGHT TOTAL KNEE REPLACEMENT Anesthesia History 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 When Was Last Pacemaker Check QUESTION #4 FULL TEXT: You/Your Family Experience fever (hyperthermia) with Anesthesia Last Oral Intake Last Oral intake: Last Oral Intake NPO since 07:30 08/15/24 10:17 Meds taken in AM with sips of Yes 08/15/24 10:17 water? 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 Female Yes 08/01/24 14:25 HX of Motion Sickness No 08/01/24 14:25 HX of N/V After Surgery No 08/01/24 14:25 Non-Smoker Yes 08/01/24 14:25 Duration of Surgery greater Yes 08/01/24 14:25 than 60 minutes Number of Risk Factors 3 08/01/24 14:25 PONV Score Moderate Risk 08/01/24 14:25 Height & Weight Height & Weight: Anesthesia: Height & Weight Height 5 ft 5 in 08/15/24 10:17 Weight: 113 kg 08/15/24 10:17 Body Mass Index (BMI) 41.4 08/15/24 10:17 Respiratory Assessment Respiratory Assessment - steel box toe inserter: Respiratory Tract Infection Hx - steel box toe inserter Hx Respiratory Tract Infection No 08/01/24 14:25 STOP Sleep Apnea STOP Sleep Apnea - steel box toe inserter: STOP Sleep Apnea - steel box toe inserter Hx Hypertension Yes 08/11/24 11:30 Hx Sleep Apnea Yes 08/01/24 14:25 CPAP No 08/01/24 14:25 BIPAP Yes 08/01/24 14:25 Do you snore loudly (louder than talking or can be heard Do you often feel tired/ fatigued/ sleepy during daytime? Has anyone observed you stop breathing during sleep? STOP Results Positive 08/01/24 14:25 QUESTION #5 FULL TEXT : Do you snore loudly (louder than talking or can be heard through closed doors)? 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 Specify any problems Hx of Preganancy in last 3 No 08/01/24 14:25 Months Nurse Filling Out Transfusion EHBARTELSO 08/01/24 14:25 & Questions: Date: 08/01/24 08/01/24 14:25 Time: 14:32 08/01/24 14:25 Patient unable to answer at this time (ie. 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: /Reproductive Hx- steel box toe inserter Hx Now Gestational Age (in weeks): EDC: Hx Hx Para Hx Section SAB Active Medications Active Medications: Current Medications Generic Name Dose Route Start Last Admin Trade Name Bg PRN Reason Stop Dose Admin Acetaminophen 1,000 mg 08/15/24 11:30 08/15/24 10:40 Acetaminophen 500 Mg Tablet PO 08/15/24 11:31 1,000 mg PREOP ONE Administration Celecoxib 400 mg 08/15/24 11:30 08/15/24 10:40 Celecoxib 200 Mg Capsule PO 08/15/24 11:31 400 mg PREOP ONE Administration Tranexamic Acid 2,000 mg/ 0 mg 08/15/24 11:30 Sodium Chloride 100 ml OPERA.SITE 08/15/24 11:31 X1 ONE Sodium Chloride 77.4 ml/ 0 ml 08/15/24 11:30 Ropivacaine 200 mg/ OPERA.SITE 08/15/24 11:31 Epinephrine HCl 0.6 mg/ INTRAOP ONE Ketorolac Tromethamine 30 mg/ Morphine Sulfate 5 mg Dexamethasone Sodium Phosphate 10 mg 08/15/24 11:30 Dexamethasone 10 Mg/Ml Vial IV 08/15/24 11:31 INTRAOP ONE Gabapentin 600 mg 08/15/24 11:30 08/15/24 10:39 Gabapentin 600 Mg Tablet PO 08/15/24 11:31 600 mg PREOP ONE Administration Cefazolin Sodium 2 gm/ Sodium 110 mls @ 150 mls/hr 08/15/24 11:30 Chloride IV 08/15/24 12:13 INTRAOP ONE Magnesium Sulfate 1 gm/ 102 mls @ 408 mls/hr 08/15/24 11:30 08/15/24 10:39 Dextrose IV 08/15/24 11:44 408 mls/hr INTRAOP ONE Administration Lactated Ringer's 1,000 mls @ 15 mls/hr 08/15/24 10:45 08/15/24 10:39 IV 15 mls/hr .Q48H HARVEY Administration Insulin Human Lispro 1 - 6 unit 08/15/24 11:30 Insulin Lispro 100 Unit/Ml Insuln.Pen SC 08/15/24 18:00 Q4H PRN PRN BG>/= 180, SEE PROTOCOL Protocol PFSH Medical History Wears glasses Cancer Thyroid disease Ambulates with cane Arthritis Easy bruising DVT (deep venous thrombosis) Migraine headache Former smoker BiPAP (biphasic positive airway pressure) dependence Sleep apnea History of Holter monitoring History of echocardiogram Spinal cord stimulator status Depression Pneumonia Hypoxia Fatigue Shortness of breath Asthma COPD (chronic obstructive pulmonary disease) Allergic rhinitis Postnasal drip Cough HTN (hypertension) BMI 37.0-37.9, adult Hypothyroidism Acute asthma exacerbation Home Medications ?Medication ?Instructions ?Recorded ?Last Taken ?Type levothyroxine 25 mcg tablet 25 mcg PO DAILY 06/10/16 08/15/24 07:30 History montelukast 10 mg tablet 10 mg PO DAILY 06/10/16 08/14/24 History rizatriptan 10 mg tablet (Maxalt) 10 mg PO ONCE PRN Migraine Symptoms 05/28/17 Unknown History zolpidem 10 mg tablet (Ambien) 10 mg PO QHS 05/28/17 08/14/24 History Handicap Placcard #1 ea 09/07/17 Unknown Rx omalizumab 150 mg/mL subcutaneous 300 mg (2 mL) subcut Q4W #2 mL 12/28/19 07/14/24 Rx syringe (Xolair) folic acid 20 mg capsule 20 mg PO DAILY supplement 09/03/20 08/14/24 History albuterol sulfate 1.25 mg/3 mL 1.25 mg (3 mL) inhalation Q4H PRN 07/10/21 Unknown Rx solution for nebulization COPD J44.9 #180 vials metoprolol succinate 50 mg 100 mg PO DAILY 05/08/23 08/15/24 07:30 History tablet,extended release 24 hr sertraline 50 mg tablet 75 mg PO DAILY 05/08/23 08/14/24 History albuterol sulfate 90 mcg/actuation 2 puff inhalation Q4H PRN 03/22/24 08/15/24 Rx aerosol inhaler (Ventolin HFA) shortness of breath #1 device budesonide-formoterol HFA 160 2 inh inhalation BID #1 ea 03/22/24 08/15/24 Rx mcg-4.5 mcg/actuation aerosol inhaler (Symbicort) hydroxychloroquine 200 mg tablet 200 mg PO DAILY 03/22/24 08/14/24 History methotrexate sodium 2.5 mg tablet 20 mg PO QWEEK 03/22/24 08/12/24 History tiotropium bromide 2.5 2 inh inhalation QDAY #1 ea 03/22/24 08/15/24 Rx mcg/actuation mist for inhalation (Spiriva Respimat) apixaban 5 mg tablet (Eliquis) 5 mg PO BID 06/09/24 08/12/24 History Allergy/AdvReac Type Severity Reaction Status Date / Time No Known Allergies Allergy Verified 08/15/24 09:56 Family History Mother Ovarian cancer Brother Brain cancer Grandmother Breast cancer Surgical History History of back surgery H/O thumb surgery H/O: hysterectomy History of appendectomy TMJ surgery Social History household members: spouse Smoking Status: Former smoker quit date: 03/01/07 pack-years: 40 Tobacco: How many years used: 40 second hand exposure: Yes alcohol intake: never substance use type: does not use caffeine: Yes Type: coffee Number of servings: 1 Review of Systems (Anesthesia) ROS Narrative System reviewed and no additional complaints, except as documented.
[2024-08-15 11:10] LABS: Bedside Glucose 85 mg/dL (74-106)
[2024-08-15] MEDS: Ipratropium/Albuterol Sulfate 3 ML AMPUL.NEB INHALATION (11:12)
[2024-08-15] MEDS: Cefazolin 2 GM in 0.9% Normal Saline (100mL Bag) 100 ML IV (12:35)
[2024-08-15] MEDS: dexAMETHasone 10 MG/ML Vial IV (12:44)
[2024-08-15] MEDS: JPS (Morphine 10mg/ml) OPERA.SITE (13:02)
[2024-08-15] MEDS: TXA 2000mg in NS 100ml (Placed in Wound) OPERA.SITE (13:02)
--- NOTE | 2024-08-15 13:49 | PCM.OPRPT ---
Operative Report (Standard) Operative Information Date of Procedure: 08/15/24 Pre-Operative Diagnosis: Right knee osteoarthritis Post-Operative Diagnosis: Same Surgery/Procedure Performed: Right knee replacement information scientist: Yes Senior Integration Developer: Toma Ny Tasks completed by front office assistant: Closing, Implanting device and Hemostasis: Electrocautery Type of Anesthesia: General RN Documented Start/Stop Times: Operation Date: 08/15/24 11:30 Case Time Into Pre-Op 08/15/24 09:30 Out of Pre-Op 08/15/24 12:27 Anesthesia Start 08/15/24 12:29 Into Room 08/15/24 12:29 Procedure Start 08/15/24 12:54 Procedure Start Time: 12:54 Procedure Stop Time: 13:15 Select all DRAINS/GRAFTS/IMPLANTS that apply: None Special Medications: Ancef 2 g IV, Tranexamic acid intra-articular wash 2 g Estimated Blood Loss: 50 Fluids Replaced: 1200 Specimen collected: No Description of surgery: Knee replacement. See below under surgical findings Surgical Findings: Preoperative diagnosis: [Right] knee severe primary osteoarthritis Postoperative diagnosis: Same Title of procedure : [Right] total knee replacement Surgeon: Casper Lee MD Indications for surgery: Patient is a [73]-year-old [female] with a history of knee arthritis appropriately treated and failed conservative measures and wished to proceed with total knee replacement. Patient was cleared for surgery by the medical doctor and has been evaluated by the anesthesia staff Findings: Intraoperative findings showed severe arthritis of the knee. Patient underwent knee replacement using [employer] total knee components. Size [5] femur, size [5] tibia, size [5-10 CS] X3 tibial polyethylene insert, knee was nicely balanced. Patella tracked well. Patient underwent standard wound closure in layers. Vicryl and strata fix sutures utilized. Skin iram kindergarten teacher assistant, physician health care legal assistant, was utilized throughout the entire procedure. They were vital in helping with patient positioning, holding of retractors, exposing the tissues adequately for safe completion of the procedure including cutting of the bone, helping eviction specialist appropriate alignment and sizing of the components, implantation of the components, as well as wound closure, bandage application, and safe patient transfer. Without assistant women's basketball coach, physician health care legal assistant, surgical time would have been significantly increased, and surgical outcome could have been less optimal. Description of procedure: The patient was taken to the OR, transferred to the OR table. They were given a spinal anesthetic. Ancef was given IV preoperatively. Tranexamic acid was given IV preoperatively. Well-padded tourniquet was applied to the upper thigh of the operative leg. Nonoperative leg had a TA hose and SCD on throughout. Operative limb was prepped padded and draped in usual orthopedic sterile fashion for the procedure. We began by injecting the pain relieving solution in the anterior superior aspect of the knee region. The limb was exsanguinated, and the tourniquet was applied to 300 mmHg. Made a midline incision through skin, subcutaneous tissue, bringing down us on the extensor mechanism. Medial parapatellar arthrotomy was carried out. Straw-colored joint fluid was evacuated. We raised a sleeve of tissue off the upper medial tibia. Resected some of the infrapatellar fat pad. We remove degenerative medial and lateral meniscus. Removed bone spurs from about the joint. We removed tissue off the anterior aspect of the distal femur. Patella was translated laterally and/or everted as needed throughout the procedure. ACL was resected. PCL was preserved. Collateral ligaments were preserved. Physician placed the retractors and health care legal assistant held retractors protecting above ligaments throughout the procedure. Cartilage was taken off the distal femur and upper tibia at appropriate locations. 1 cutting block used. Next cutting block was applied to the front of the femur. Distal cut carried out. 4-in-1 cutting block was applied to the distal femur and held in place with 2 pins. Foreign Law Consultant again held retractors to protect the soft tissues while surgeon performed anterior, posterior, and chamfer cuts. Bony fragments were removed. PCL retractor was placed and collateral ligament protectors placed by the surgeon, held by the assistance. Tibial external alignment guide was utilized under standard technique going down the shaft of the tibia, to the base of the second metatarsal. Appropriate posterior slope was built in. Foreign Law Consultant help eviction specialist alignment. Cutting block was held in place with 3 pins. Again checked the external alignment. Tibial cut carried out with a saw while the health care legal assistant held retractors protecting the soft tissues about the anterior, medial, lateral, and posterior knee. Bone fragment removed. We then sized off the upper tibia with the help of the health care legal assistant. We then checked flexion extension gaps finding them to be adequate and equal. Next the distal femoral trial was applied. Tibial tray was allowed to freefloat with a 10 mm insert. Knee was flexed and extended an external alignment guide is utilized. Tibial trial was pinned in place. Drill holes were placed into the distal femoral trial and it was removed. Punch was used on the upper tibial component and that was removed. The sclerotic bone was softened with a sharp pin. Bone spurs removed from the posterior medial and posterior lateral aspect of the femur while the health care legal assistant lifted up on the distal femur and exposed each compartment. Patella was protected throughout. Not resurfaced. Tourniquet deflated. Back of the knee was injected with pain relieving solution. Bleeding was controlled at the back of the knee with the bovey. Components were checked and open. Knee was thoroughly irrigated by the health care legal assistant. The bony surfaces cleaned and dried. Foreign Law Consultant held retractors exposing the bony surfaces of the tibia and femur which were hammered in position. Insert hammered into position. . We thoroughly irrigated and debrided the knee. Bleeding controlled with the Bovie. Knee was again thoroughly irrigated. Patella noted to track nicely. Tranexamic acid wash was utilized for 3 minutes. Sterile Betadine utilized for technique. Irrisept also utilized. We repaired the arthrotomy with a combination of #1 Vicryl and #2 strata fix. We did a mid layer of 1 Vicryl and #1 strata fix running. We then did inverted 2-0 vicryl . Skin iram. Mepilex dressing applied. TA hose and SCDs applied. Patient was awoken from their anesthetic, transferred back to their own bed and recovery room in satisfactory condition. Patient brought in under observation. Appropriate IV antibiotic to be utilized as well as medication for DVT prevention. Hopeful discharge tomorrow. Hospitalist service and Physical therapy will be consulted. This note was generated with [employer] dictation software. It may contain incorrect words, spelling, and punctuation that were not noted in checking the note before signing. Complications Complications: No Admit VTE Documentation VTE Present on Admission: No VTE Mechan Device Prophylaxis: SCD's and Thigh High TA Hose VTE Pharm Prophylaxis ordered?: Yes
--- NOTE | 2024-08-15 14:46 | PCM.CONS.GEN ---
Assessment & Plan Assessment/Plan (1) Status post right knee replacement: (2) Chronic respiratory failure with hypoxia: (3) Asthma-COPD overlap syndrome: PLAN: Plan Patient is a 73-year-old female who presented [facility] on 08/15/2024 for planned right knee replacement. Medicine consulted postoperatively for medical management. 1. Right knee osteoarthritis ? Orthopedic surgery primary. S/p right knee replacement with Dr. Lee on 617. Tolerated procedure well, no intraoperative complications noted. Pain control, DVT prophylaxis and further management per orthopedics. PT/OT/case management consulted. 2. Mild postoperative hypoxia in setting of asthma/COPD overlap syndrome and ISIDRO with chronic respiratory failure ? Follows with [facility]. Patient with history of severe asthma-COPD overlap syndrome. She is on 2 L nasal cannula with exertion at baseline. She also has oxygen bled in through her CPAP at night. Postoperatively she was on 4 L nasal cannula at rest but saturations were in the high 90s. She had mildly diminished breath sounds bilaterally but really good air movement throughout with no wheezing or crackles noted. Continue home triple therapy and short acting inhaler as needed. Wean supplemental oxygen as able. Continue CPAP at night. No need to consult pulmonology at this time but can consider if needed. 3. History of DVT ? History of left lower extremity DVT first diagnosed in 01/2023. Has been on Eliquis since that time. Most recent lower extremity duplex ultrasound in 04/2024 showed no evidence of DVT. Okay to resume Eliquis at 2.5 mg twice daily for a few days to minimize postoperative bleeding, followed by resumption of Eliquis 5 mg twice daily after that. Chronic medical conditions: ? Class III obesity: BMI 41 on admit. Complicates hospital course, care and prognosis. ? RA: Stable. Continue home hydroxychloroquine and methotrexate weekly. ? Hypothyroidism: Continue home Synthroid. ? Hypertension: Hypertensive to the 150s postoperatively. Continue home Toprol. ? Anxiety/depression: Stable. Continue home sertraline. ? History of lung cancer s/p radiation therapy: No inpatient needs, continue outpatient follow-up. DVT prophylaxis: Eliquis 2.5 mg twice daily Total clinical time spent by myself addressing the patient's medical issues, reviewing all the data, and collaborating with patient's care team: 50 minutes. HPI Consult Data Date of Consult: 08/15/24 HPI Narrative Reason for Consultation: Postoperative medical management HPI Narrative: SURAJ VAUGHAN, is a 73 F who presented to [facility] on 08/15/24 for planned right knee replacement. Medicine consulted postoperatively for medical management. Patient had right knee replacement done with Dr. Lee today. Tolerated procedure well, no intraoperative complications noted. I saw the patient at bedside in the PACU this afternoon. Patient was mildly sedated but otherwise laying back comfortably in bed, answering questions appropriately and in no acute distress. She was breathing comfortably on 4 L nasal cannula at rest with oxygen saturations in the high 90s. States that she uses supplemental oxygen through her CPAP at night but does not wear any oxygen during the day. Does have a history of asthma/COPD overlap syndrome and ISIDRO. On exam has mildly diminished breath sounds bilaterally throughout but no crackles noted and no wheezing noted. She otherwise denies any acute pain or discomfort. No other acute concerns currently. [facility] Medical History Wears glasses Cancer Thyroid disease Ambulates with cane Arthritis Easy bruising DVT (deep venous thrombosis) Migraine headache Former smoker BiPAP (biphasic positive airway pressure) dependence Sleep apnea History of Holter monitoring History of echocardiogram Spinal cord stimulator status Depression Pneumonia Hypoxia Fatigue Shortness of breath Asthma COPD (chronic obstructive pulmonary disease) Allergic rhinitis Postnasal drip Cough HTN (hypertension) BMI 37.0-37.9, adult Hypothyroidism Acute asthma exacerbation Home Medications ?Medication ?Instructions ?Recorded ?Last Taken ?Type levothyroxine 25 mcg tablet 25 mcg PO DAILY 06/10/16 08/15/24 07:30 History montelukast 10 mg tablet 10 mg PO DAILY 06/10/16 08/14/24 History rizatriptan 10 mg tablet (Maxalt) 10 mg PO ONCE PRN Migraine Symptoms 05/28/17 Unknown History zolpidem 10 mg tablet (Ambien) 10 mg PO QHS 05/28/17 08/14/24 History Handicap Placcard #1 ea 09/07/17 Unknown Rx omalizumab 150 mg/mL subcutaneous 300 mg (2 mL) subcut Q4W #2 mL 12/28/19 07/14/24 Rx syringe (Xolair) folic acid 20 mg capsule 20 mg PO DAILY supplement 09/03/20 08/14/24 History albuterol sulfate 1.25 mg/3 mL 1.25 mg (3 mL) inhalation Q4H PRN 07/10/21 Unknown Rx solution for nebulization COPD J44.9 #180 vials metoprolol succinate 50 mg 100 mg PO DAILY 05/08/23 08/15/24 07:30 History tablet,extended release 24 hr sertraline 50 mg tablet 75 mg PO DAILY 05/08/23 08/14/24 History albuterol sulfate 90 mcg/actuation 2 puff inhalation Q4H PRN 03/22/24 08/15/24 Rx aerosol inhaler (Ventolin HFA) shortness of breath #1 device budesonide-formoterol HFA 160 2 inh inhalation BID #1 ea 03/22/24 08/15/24 Rx mcg-4.5 mcg/actuation aerosol inhaler (Symbicort) hydroxychloroquine 200 mg tablet 200 mg PO DAILY 03/22/24 08/14/24 History methotrexate sodium 2.5 mg tablet 20 mg PO QWEEK 03/22/24 08/12/24 History tiotropium bromide 2.5 2 inh inhalation QDAY #1 ea 03/22/24 08/15/24 Rx mcg/actuation mist for inhalation (Spiriva Respimat) apixaban 5 mg tablet (Eliquis) 5 mg PO BID 06/09/24 08/12/24 History Allergy/AdvReac Type Severity Reaction Status Date / Time No Known Allergies Allergy Verified 08/15/24 09:56 Family History Mother Ovarian cancer Brother Brain cancer Grandmother Breast cancer Surgical History (Updated 08/15/24 @ 16:[address] Gerald Hough, DO) History of back surgery H/O thumb surgery H/O: hysterectomy History of appendectomy TMJ surgery Social History household members: spouse Smoking Status: Former smoker quit date: 03/01/07 pack-years: 40 Tobacco: How many years used: 40 second hand exposure: Yes alcohol intake: never substance use type: does not use caffeine: Yes Type: coffee Number of servings: 1 ROS Constitutional Constitutional: Denies chills, fatigue, fever(s) or weakness Eyes Eyes: Denies change in vision Cardiovascular Cardiovascular: Denies chest pain, dyspnea on exertion, edema or lightheadedness Respiratory/Chest Respiratory/Chest: Denies cough, productive cough, shortness of breath at rest, shortness of breath with exertion or wheezing Gastrointestinal Gastrointestinal: Denies abdominal pain Musculoskeletal Musculoskeletal: Denies arthralgias or myalgias Neurologic Neurologic: Denies dizziness, focal weakness or headache(s) Physical Exam Const alert, oriented x3 and no apparent distress Constitutional Narrative: Elderly female, class III obesity, mildly sedated appearing but otherwise sitting back comfortably in bed, breathing comfortably on 4 L nasal cannula at rest with oxygen saturations in the high 90s, answering questions appropriately, in no acute distress. General Appearance: cooperative and comfortable HEENT normocephalic, head/scalp atraumatic, hearing grossly normal bilaterally, nasal mucous membranes and turbinates normal and moist oral mucous membranes Eyes PERRL, EOMs intact bilaterally and conjunctivae normal Neck full ROM Chest inspection of chest normal Resp normal respiratory effort and no use of accessory muscles Resp Narrative: Breathing comfortably on 4 L nasal cannula at rest. Mildly diminished breath sounds bilaterally throughout but no wheezing or crackles noted. Cardio regular rate, regular rhythm, no murmurs and peripheral pulses 2+ throughout GI normal to inspection, nondistended, normoactive bowel sounds, soft to palpation, non-tender and non-distended Back/Spine normal ROM Extremity Extremity Narrative: Right knee with surgical dressing and ice in place. Skin no rashes or lesions noted Psych mental status grossly normal Lab / Micro Data Labs: Laboratory Results - last 24 hr 08/15/24 09:54: POC Glucose 85 Charges/Coding Visit Charges Inpatient E&M: 47867 Subs Hosp L3
--- NOTE | 2024-08-15 15:00 | RAD_ITS ---
PROCEDURE: KNEE 1 OR 2 VIEWS N/A REASON FOR EXAM: POST OP EVAL TECHNIQUE: KNEE 1 OR 2 VIEWS COMPARISON: Prior study dated January 15, 2023. FINDINGS: The patient is status post total knee replacement. There is good alignment. Postoperative soft tissue changes. RAD/Knee 1 or 2 Views IMPRESSION: Status post total knee replacement. There is good alignment. Postoperative soft tissue changes. Reading Location: [facility]
--- NOTE | 2024-08-15 15:03 | PCM.POST.ANE ---
Anesthesia: Postop Eval I Current Vital Signs Temperature: 99.1 F Pulse Rate: 88 Blood Pressure: 171/99 Respiratory Rate: 16 Pulse Ox: 97 Oxygen Delivery Method: Nasal Cannula Oxygen Flow Rate (L/min): 4 Assessment Airway patent: Yes Spontaneous unlabored respirations: Yes Mental status: Awake and Calm nausea: No Vomiting: No Anesthesia Complication: No Fluid Hydration Crystalloid volume administer (ml): 1,200 Total IV fluid infused: 1,200 Progress Note Anesthesia document: Postop Eval 1 completed: Yes
[2024-08-15] MEDS: Lactated Ringers 1,000 ML 125 ML IV (18:15)
--- NOTE | 2024-08-15 18:37 | POSTOPAN2_ITS ---
Anesthesia Postop Eval I Sum Postop Eval Completion status Anesthesia document: Postop Eval 1 completed: Yes Anesthesia Postop Eval I Summary Anesthesia Postop Eval I Summary: Anesthesia Postop Eval I: Assessment Summary Airway patent Yes 08/15/24 15:04 [email or web address] Spontaneous unlabored Yes 08/15/24 15:04 [email or web address] respirations Mental status Awake,Calm 08/15/24 15:04 [email or web address] nausea No 08/15/24 15:04 [email or web address] Vomiting No 08/15/24 15:04 [email or web address] Anesthesia Postop Eval I: Fluid Summary Crystalloid volume administer 1,200 08/15/24 15:04 [email or web address] (ml) Colloids volume administered ( ml) Blood Product volume administered (ml) Total IV fluid infused 1,200 08/15/24 15:04 [email or web address] Anesthesia Postop Eval I: Summary Notes Anesthesia Complication No 08/15/24 15:04 [email or web address] Anesthesia Complication Comment: Post-operative progress note Anesthesia: Postop Eval II Evaluation Mental status: Awake Pain Level: 0 nausea: No Vomiting: No Complications Anesthesia Complication: No
--- NOTE | 2024-08-15 18:37 | PCM.POSTANE2 ---
Anesthesia Postop Eval I Sum Postop Eval Completion status Anesthesia document: Postop Eval 1 completed: Yes Anesthesia Postop Eval I Summary Anesthesia Postop Eval I Summary: Anesthesia Postop Eval I: Assessment Summary Airway patent Yes 08/15/24 15:04 CASH APPLICATIONS [email or web address] Spontaneous unlabored Yes 08/15/24 15:04 CASH APPLICATIONS [email or web address] respirations Mental status Awake,Calm 08/15/24 15:04 CASH APPLICATIONS [email or web address] nausea No 08/15/24 15:04 CASH APPLICATIONS [email or web address] Vomiting No 08/15/24 15:04 CASH [email or web address] Anesthesia Postop Eval I: Fluid Summary Crystalloid volume administer 1,200 08/15/24 15:04 CASH APPLICATIONS [email or web address] (ml) Colloids volume administered ( ml) Blood Product volume administered (ml) Total IV fluid infused 1,200 08/15/24 15:04 CASH [email or web address] Anesthesia Postop Eval I: Summary Notes Anesthesia Complication No 08/15/24 15:04 CASH [email or web address] Anesthesia Complication Comment: Post-operative progress note Anesthesia: Postop Eval II Evaluation Mental status: Awake Pain Level: 0 nausea: No Vomiting: No Complications Anesthesia Complication: No
[2024-08-15] MEDS: Cefazolin 1 GM/50 ML BAG IV (20:24)
[2024-08-15] MEDS: Zolpidem Tartrate 5 MG Tablet PO (22:31)
[2024-08-15] MEDS: Senna/Docusate Sodium 1 Tablet 2 TABLET PO (22:31)
[2024-08-16] VITALS (10 sets, daily range): BP systolic 134–166; BP diastolic 74–82; PULSE 68–91; RESP 16–18; TEMP 36.2–36.6; O2SAT 86–97
[2024-08-16] MEDS: Lactated Ringers 1,000 ML 125 ML IV (02:29)
[2024-08-16] MEDS: Acetaminophen 500 MG Tablet 1000 MG PO ×2 (02:29→12:48)
[2024-08-16 04:59] LABS: Hematocrit 32.5 % (37-47); Hemoglobin 10.5 g/dL (12.0-15.0); Mean Corp Hgb Conc 32.3 g/dL (32-36); Mean Corpuscular Hgb 30.8 pg (27.0-32.0); Mean Corpuscular Volume 95.3 fL (81-99); Platelet Count 182 K/mm3 (150-450); RBC Distribution Width CV 15.2 % (11.6-14.6); RBC Distribution Width SD 52.6 fl (35.1-43.9); Red Blood Count 3.41 M/mm3 (4.2-5.4); White Blood Count 9.9 K/mm3 (4.4-11.0)
[2024-08-16] MEDS: Cefazolin 1 GM/50 ML BAG IV (05:15)
[2024-08-16] MEDS: Levothyroxine 25 MCG TABLET PO (05:15)
[2024-08-16] MEDS: Ipratropium/Albuterol Sulfate 3 ML AMPUL.NEB INHALATION ×2 (05:45→13:37)
[2024-08-16 07:02] LABS: Anion Gap 9 (5-15); BUN 10 mg/dL (4-19); BUN/Creat Ratio 13.9 RATIO (10-20); Calcium,Total 8.5 mg/dL (7.6-11.0); Carbon Dioxide 24.4 mmol/L (21.0-32.0); Chloride 104 mmol/L (98-108); EST Glomerular Filtration Rate 92 (>60); Estimated Creatinine Clearance 79.68 ml/min (50-250); Glucose 132 mg/dL (70-99); Potassium 4.1 mmol/L (3.3-5.1); Sodium Level 137 mmol/L (133-145)
--- NOTE | 2024-08-16 07:27 | PCM.PN.ORT ---
Subjective Subjective This 73-year-old female underwent a right total knee arthroplasty yesterday. No adverse events overnight. She has not yet been up with physical therapy. She denies chest pain shortness of breath dizziness or calf pain feel she is doing well overall. Hoping for a discharge to home later today Objective Data Objective Data Patient is alert and oriented x 3 no acute distress at rest breathing easily without respiratory distress. Inspection of right knee is with waterproof dressing intact without active drainage erythema warmth or signs of infection. Negative Angeli bilaterally without signs of DVT pedal pulses present equal bilaterally. Sensation intact to light touch patient is able to plantar and dorsiflex bilateral ankle against resistance neurovascularly intact Vital Signs: Vital Signs Temp Pulse Resp BP Pulse Ox O2 Del Method O2 Flow Rate 97.8 F 68 18 166/82 H 97 Nasal Cannula 2 08/16/24 06:01 08/16/24 06:01 08/16/24 06:01 08/16/24 06:01 08/16/24 06:01 08/16/24 06:01 08/16/24 06:01 Oxygen Flow Rate (L/min) 2 Oxygen Delivery Method Nasal Cannula Weight: 113 kg Body Mass Index (BMI) 41.4 Intake & Output: Intake and Output for Last 24 Hours 08/14/24 08/15/24 08/16/24 23:59 23:59 23:59 Intake Total 2350 / 2350 1500 / 1500 Output Total 50 / 50 Balance 2300 / 2300 1500 / 1500 Lab / Micro Data Attestation: I reviewed the patient's lab results. 08/16/24 04:39 08/16/24 04:39 Labs: Laboratory Results - last 24 hr 08/15/24 09:54: POC Glucose 85 08/16/24 04:39: WBC 9.9, RBC 3.41 L, Hgb 10.5 L, Hct 32.5 L, MCV 95.3, MCH 30.8, MCHC 32.3, RDW Std Deviation 52.6 H, RDW Coeff of Robby 15.2 H, Plt Count 182, MPV 11.0, Sodium 137, Potassium 4.1, Chloride 104, Carbon Dioxide 24.4, Anion Gap 9, BUN 10, Creatinine 0.70, Estim Creat Clear Calc 79.68, Est GFR (MDRD) Non-Af 92, BUN/Creatinine Ratio 13.9, Glucose 132 H, Calcium 8.5 Micro: Microbiology 08/03/24 10:01 Swab (Method) Nasal Screen MRSA/MSSA - Final Radiography Diagnostic Testing: Radiology Impression Knee X-Ray 08/15/24 15:00 IMPRESSION: Status post total knee replacement. There is good alignment. Postoperative soft tissue changes. Reading Location: [place] [address] X-rays personally reviewed by myself agree with above interpretation expected postoperative changes following right total knee arthroplasty Assessment & Plan Assessment/Plan (1) Status post right knee replacement: PLAN: - Continue oxycodone as prescribed as needed for pain - DVT prophylaxis bilateral teds SCDs resume Eliquis at 2.5 mg 1 p.o. twice daily x 5 days. As long as patient has not showing bleeding complications at that point anticipate resuming preoperative dose of Eliquis 5 mg 1 p.o. twice daily at that time. Patient voiced understanding. She will plan to split her 5 mg tabs at home. She declined a prescription for Eliquis 2.5 mg -Begin PT/OT weightbearing as tolerated right lower extremity with a walker. Patient is already scheduled for outpatient physical therapy to begin this Wednesday. -Drop in hemoglobin hematocrit asymptomatic without indication for transfusion likely combination of acute blood loss and hemodilution continue to monitor -Encourage incentive spirometry -Continue discharge planning with case management possible discharge to home later today -Continue postoperative medical management per hospitalist. Patient is orthopedically stable and okay for discharge to home when cleared medically having adequate pain control doing well with physical therapy. Anticipate being able to wean from oxygen to room air with appropriate oxygen saturation prior to discharge. I will call back over later today to reassess patient progress with hope in anticipation of discharging to home.
--- NOTE | 2024-08-16 07:41 | PCM.DC ---
Discharge Instructions Diet Discharge Diet: 1800 Calorie Control Diet DC O2, CPAP, BIPAP needs Home O2 Discharge instructions: No Dressing / Incision Discharge Activity: May Not Drive (while taking narcotic pain medications.) and Use Walker May shower in (days): 2 (only if incision is dry and without drainage. Do NOT soak/submerge in tub/pool/mae/stream/hot tub.) Ice area for (Minutes): 20 (Every hour as needed for pain and swelling) Weight Bearing Status: Weight bearing as tolerated Keep extremity elevated above heart level: Operative Extremity Additional Activity Instructions:: Wear elastic stockings for 2 weeks after your surgery. Dressing / Incision Call your doctor if your incision/area has: Continuous Slow Oozing, Sudden Increased Bleeding, Increased Pain/ Swelling, Increased Redness and Foul Smelling Discharge Call your doctor if you observe: Fever of 101 or Higher, Shortness of breath, Chest pain and Calf discomfort Remove Dressing in: 5 days Cleanse incision/area with: Soap & Water Additional Dressing/Incision Instructions:: See postoperative orthopedic pink sheet Follow Up Care Please Follow Up With: Toma Ny PA When: July 17, 2020 2:15 PM [facility] ([place] [facility]) Test Results: Test results from this visit will be discussed in further detail at your follow-up appointment, if applicable. Discharge Plan Admission Admit Date/Time: 08/15/24 14:09 Attending Provider: Casper Lee Primary Care Provider: Tiffanie Sharma Consulting Providers: Marilee Lopez Discharge Orders/Prescriptions Prescriptions: New acetaminophen 500 mg Tablet 1,000 mg PO Q8H Qty: 0 0RF oxycodone 5 mg Tablet 5 - 10 mg PO Q4H PRN PRN (Reason: Pain Score 4-10) Qty: 0 0RF Eliquis 5 mg Tablet 2.5 mg PO BID Qty: 0 0RF sennosides-docusate sodium [Stimulant Laxative Plus] 8.6-50 mg Tablet 2 tab PO BID Qty: 0 0RF Continued rizatriptan [Maxalt] 10 mg tablet 10 mg PO ONCE PRN (Reason: Migraine Symptoms) zolpidem [Ambien] 10 mg tablet 10 mg PO QHS (DME) Handicap Placcard Qty: 1 0RF Rx Instructions: Length of Time: 36 months Xolair 150 mg/mL syringe 300 mg SC Q4W Qty: 2 11RF Rx Instructions: requires multiple injection sites; do not exceed 150 mg per injection site folic acid 20 mg capsule 20 mg PO DAILY albuterol sulfate 1.25 mg/3 mL solution for nebulization 1.25 mg INHALATION Q4H PRN (Reason: COPD J44.9) Qty: 180 6RF methotrexate sodium 2.5 mg tablet 20 mg PO QWEEK Patient Comments: [NO ORIGINAL SIG] hydroxychloroquine 200 mg tablet 200 mg PO DAILY budesonide-formoterol [Symbicort] 160-4.5 mcg/actuation HFA aerosol inhaler 2 inh inhalation BID Qty: 1 11RF Rx Instructions: administer with spacer, rinse mouth after each use Spiriva Respimat 2.5 mcg/actuation mist 2 inh inhalation QDAY Qty: 1 6RF Rx Instructions: administer at approximately the same time(s) each day albuterol sulfate [Ventolin HFA] 90 mcg/actuation HFA aerosol inhaler 2 puff INHALATION Q4H PRN (Reason: shortness of breath) Qty: 1 6RF levothyroxine 25 MCG tablet 25 mcg PO DAILY Patient Comments: thyroid montelukast 10 MG tablet 10 mg PO DAILY Patient Comments: allergies metoprolol succinate 50 mg tablet extended release 24 hr 100 mg PO DAILY sertraline 50 mg tablet 75 mg PO DAILY Held Eliquis 5 mg tablet 5 mg PO BID Hold Instructions: Resume on 08/22/24. Hold until 5 days post operative to minimize bleeding complications Patient Comments: WILL STOP TAKING 5 DAYS PRIOR AND WILL BRIDGE WITH INJECTABLE MEDICATION Referrals / Follow Up: Tiffanie Sharma MD [Primary Care Provider] - Disposition Disposition (needs filled in before D/C Order can be placed): Home, Self Care
[2024-08-16] MEDS: oxyCODONE 5 MG Tablet PO ×2 (08:33→12:54)
[2024-08-16] MEDS: Sertraline 50 MG Tablet 75 MG PO (08:35)
[2024-08-16] MEDS: Senna/Docusate Sodium 1 Tablet 2 TABLET PO (08:35)
[2024-08-16] MEDS: APIXABAN 2.5 MG TABLET (WCH) PO (08:35)
[2024-08-16] MEDS: Metoprolol(XL)Succ 100 MG Tablet PO (08:36)
[2024-08-16] MEDS: Hydroxychloroquine 200 MG Tablet PO (08:36)
[2024-08-16] MEDS: Montelukast 10 MG Tablet PO (08:37)
[2024-08-16] MEDS: Ensure Surgery 237 ML LIQUID PO (08:37)
[2024-08-16] MEDS: dexAMETHasone 10 MG/ML Vial IV (12:47)
[2024-08-16] MEDS: 0.9% Saline Lock 10 ML Syringe IV (12:47)
--- NOTE | 2024-08-16 13:42 | PN.HOSP_ITS ---
Reason for Visit Reason for Visit: Diagnoses Chronic obstructive pulmonary disease, unspecified (08/15/24) Chronic respiratory failure with hypoxia (08/15/24) Encounter for other preprocedural examination (08/15/24) Presence of right artificial knee joint (08/15/24) Subjective Subjective Pt sitting up in bed overall feeling decent aside from pain, no shortness of breath at rest. Is supposed to use bipap at bedtime w/ O2 but didn't have it last night. Pt up and ambulated and did well, did require some O2 w/ ambulation. No other new or acute complaints Objective Data Objective Data Vital Signs: Vital Signs Temp Pulse Resp BP Pulse Ox O2 Del Method O2 Flow Rate 97.2 F L 88 18 134/74 H 96 Nasal Cannula 3 08/16/24 08:12 08/16/24 13:37 08/16/24 13:37 08/16/24 08:12 08/16/24 09:15 08/16/24 09:15 08/16/24 09:15 Oxygen Flow Rate (L/min) 3 Oxygen Delivery Method Nasal Cannula Weight: 113 kg Body Mass Index (BMI) 41.4 Intake & Output: Intake and Output for Last 24 Hours 08/14/24 08/15/24 08/16/24 23:59 23:59 23:59 Intake Total 2350 / 2350 2500 / 2500 Output Total 50 / 50 Balance 2300 / 2300 2500 / 2500 Lab / Micro Data 08/16/24 04:39 08/16/24 04:39 Labs: Laboratory Results - last 24 hr 08/16/24 04:39: WBC 9.9, RBC 3.41 L, Hgb 10.5 L, Hct 32.5 L, MCV 95.3, MCH 30.8, MCHC 32.3, RDW Std Deviation 52.6 H, RDW Coeff of Robby 15.2 H, Plt Count 182, MPV 11.0, Sodium 137, Potassium 4.1, Chloride 104, Carbon Dioxide 24.4, Anion Gap 9, BUN 10, Creatinine 0.70, Estim Creat Clear Calc 79.68, Est GFR (MDRD) Non-Af 92, BUN/Creatinine Ratio 13.9, Glucose 132 H, Calcium 8.5 Micro: Microbiology 08/03/24 10:01 Swab (Method) Nasal Screen MRSA/MSSA - Final Radiography Diagnostic Testing: Radiology Impression Knee X-Ray 08/15/24 15:00 IMPRESSION: Status post total knee replacement. There is good alignment. Postoperative soft tissue changes. Reading Location: [place] [id number] Physical Exam Narrative General: Alert, oriented, no apparent distress HEENT: Atraumatic, normocephalic Eyes: Anicteric, normal conjunctiva, extraocular movements grossly intact Neck: Supple Respiratory: Clear to auscultation bilaterally, normal respiratory effort at rest Cardiovascular: Regular rate and rhythm GI: Soft, nontender, nondistended Extremities: No edema Musculoskeletal: Moving all extremities Neuro: No overt focal neurological deficits Skin: No rashes appreciated Psych: Cooperative Assessment & Plan Assessment/Plan (1) Chronic respiratory failure with hypoxia: (2) COPD (chronic obstructive pulmonary disease): (3) ISIDRO (obstructive sleep apnea): (4) Status post right knee replacement: PLAN: Plan #Chronic hypoxic resp failure -Pt has used O2 intermittently and uses bipap qhs w/ O2 bleed but didn't use this last night -Didn't need O2 at rest, not in resp distress, did require O2 w/ ambulation but suspect this is in part d/t pt being post op, not wearing bipap last night, and drop in hgb w/ decreased oxygen carrying capacity -Given no acute process, feel it is reasonable to d/c home and advise pt to f/u w/ her outpatient providers -Pt comfortable w/ this plan -Discussed w/ primary team as well -Continue home inhalers #ISIDRO -Resume home bipap w/ O2 bleed #s/p R knee replacement -management per primary -PT/OT -Eliquis for dvt ppx #Hypothyroidism -Continue Synthroid #Depression/anxiety -Continue home medications #DVT ppx: at descretion of primary Marilee Lopez MD Time spent in the patient's overall evaluation, decision-making process, review of diagnostic data, adjustment of management, discussion with other providers, nursing and ancillary staff involved in patient's care documentation, 36 Minutes Charges/Coding Visit Charges Inpatient E&M: 38536 Subs Hosp L2
--- NOTE | 2024-08-16 13:55 | CASEMGMT ---
Pt has an order for DC placed. Edward from [facility] reports that the pt's home oxygen order states 2L continuous and 2L HS bled into PAP. Per the test lead application testing, pt qualifies for 3L with exertion and none @ rest. Updated Rx signed by Dr. Lopez and sent to [facility] via [facility]. Per chart review, ortho reports that the pt has already been established for OP PT starting Wednesday. RN CM to the pt room at this time. Pt sitting up in the chair and is A&Ox4. Pt educated on oxygen needs. Pt states understanding and that her will bring in her portable tank today. Pt states that she has already been set up for the next 2 weeks for OP PT @ [facility] starting Wednesday. Pt denies concerns or needs. Pt states that she has all of the DME she needs including a FWW. See PT/OT evaluations. Pt states that she feels safe returning home with her today and is agreeable to the DC plan. Pt denies further needs at this time.
[2024-08-16] MEDS: CLARIFY ORDER NOTE (16:03)
== END 2024-08-16 18:10 | disposition home or self-care (01) ==
LOC: SDC 17:40 → MS3 17:40
PROVIDERS: Anesthesiology; Admitting Provider Orthopaedic Surgery; PCP Family Medicine; Referring Provider Orthopaedic Surgery; Visit Provider Orthopaedic Surgery
PROC: (CPT 27447; principal; 2024-08-15 11:05)
DX: M17.11 Unilateral primary osteoarthritis, right knee (principal); C34.30 Malignant neoplasm of lower lobe, unspecified bronchus or lung; J96.11 Chronic respiratory failure with hypoxia; J44.9 Chronic obstructive pulmonary disease, unspecified; E66.813 Obesity, class 3; Z68.41 Body mass index [BMI] 40.0-44.9, adult; E03.9 Hypothyroidism, unspecified; F41.9 Anxiety disorder, unspecified; I10 Essential (primary) hypertension; Z87.891 Personal history of nicotine dependence; Z86.718 Personal history of other venous thrombosis and embolism; G47.33 Obstructive sleep apnea (adult) (pediatric); Z79.51 Long term (current) use of inhaled steroids; F32.A Depression, unspecified; Z79.890 Hormone replacement therapy; Z79.899 Other long term (current) drug therapy; Z86.711 Personal history of pulmonary embolism
CPT/HCPCS: 27447; 01402; 64447; 36415; 73560; 80048; 82962; 83735; 85027; 87077; 87081; 94640; 94668; 96361; 96365; 96366; 96375; 97162; 97166; 99221; C1776; A4216; G0378; J2405; J3475

== ENCOUNTER 2024-09-08 09:10 | Outpatient (CLI) | payer MEDICARE, OTHER, SELFPAY ==
[2024-09-08 09:25] VITALS: BP 143/80; PULSE 81; RESP 16; TEMP 35.8; O2SAT 95
== END 2024-09-08 23:59 | disposition home or self-care (01) ==
LOC: MEDOUTP 09:10
PROVIDERS: PCP Family Medicine; Referring Provider Nurse Practitioner Acute Care; Visit Provider Nurse Practitioner Acute Care
DX: J45.41 Moderate persistent asthma with (acute) exacerbation (principal)
CPT/HCPCS: 96372; J2357

== ENCOUNTER → 2024-09-18 | Outpatient (CLI) | payer MEDICARE, OTHER, SELFPAY ==
--- NOTE | 2024-09-18 13:35 | CT_ITS ---
PROCEDURE: CHEST WITHOUT CONTRAST 09/18/2024 REASON FOR EXAM: FOLLOW UP TREATED LUNG CANCER right side. TECHNIQUE: Chest CT without contrast. Coronal and Sagittal reconstruction series were provided. One or more dose reduction techniques were used (e.g., Automated exposure control, adjustment of the mA and/or kV according to patient size, use of iterative reconstruction technique RADIATION DOSE SUMMARY: CTDlvol: 13.85 mGy DLP: 488.65 mGycm COMPARISON: CTA Pulmonary w/ Contrast, 07/20/2024. CT Chest w/Contrast, 04/14/2024. FINDINGS: LUNGS: Moderate emphysematous lung changes. No pulmonary mass. No acute consolidation. Unchanged left upper and lower lobe nodular and ground-glass densities. No significant change in medial left lower lobe nodule measuring 7.1 mm (Se: 4 85, Im: ). Stable 4.3 mm right upper lobe nodule (Se: 4, Im: 19). Stable triangular 3.8 mm left lower lobe nodule along the major fissure (Se: 602.2, Im: 113), possibly a perifissural lymph node. Scattered parenchymal scarring again noted. PLEURAL SPACES: No pleural effusion. No pneumothorax. HEART: No cardiomegaly. No significant pericardial effusion. Multivessel coronary artery and aortic valve calcification. MEDIASTINUM/HILUM: No significant lymphadenopathy. AORTA: No aneurysm. Scattered calcified atherosclerosis. ESOPHAGUS: Unremarkable. CHEST WALL: The chest wall is unremarkable. BONES: No acute osseous abnormality. Identified are two epidural electrodes positioned in the neural canal with the tips at the T8 level. Thoracic spine stimulator is in place. UPPER ABDOMEN: Small hiatal hernia. Partially imaged 1.6 cm exophytic fluid-density left superior pole cyst. CT/Chest without Contrast IMPRESSION: 1. Stable left upper and lower lobe ground-glass and nodular opacities. 2. Stable pulmonary nodules bilaterally. 3. Moderate emphysematous lung changes. 4. Coronary artery calcification (CAC) is present. Reading Location: [id number]
== END | disposition home or self-care (01) ==
LOC: CT 13:21
PROVIDERS: PCP Family Medicine; Referring Provider Student in an Organized Health Care Education/Training Program; Visit Provider Student in an Organized Health Care Education/Training Program
DX: C34.32 Malignant neoplasm of lower lobe, left bronchus or lung (principal)
CPT/HCPCS: 71250

== ENCOUNTER 2024-10-09 12:27 | Outpatient (CLI) | payer MEDICARE, OTHER, SELFPAY ==
[2024-10-09 12:34] VITALS: BP 162/78; PULSE 91; RESP 14; TEMP 36.2; O2SAT 92; BMI 39.9
== END 2024-10-09 23:59 | disposition home or self-care (01) ==
LOC: MEDOUTP 12:28
PROVIDERS: PCP Family Medicine; Referring Provider Nurse Practitioner Acute Care; Visit Provider Nurse Practitioner Acute Care
DX: J45.41 Moderate persistent asthma with (acute) exacerbation (principal)
CPT/HCPCS: 96372; J2357

== ENCOUNTER → 2024-11-03 | Outpatient (CLI) | payer MEDICARE, OTHER, SELFPAY ==
--- NOTE | 2024-11-03 12:52 | RAD_ITS ---
PROCEDURE: CHEST PA AND LATERAL 11/03/2024 REASON FOR EXAM: COUGH/ PNEUMONIA TECHNIQUE: Procedure Code: RADCXR Modality: DX Procedure: CHEST PA AND LATERAL COMPARISON: Prior study dated July 17, 2024. FINDINGS: Hardware: Electrodes from a spinal cord stimulator device seen at the T7-T8 level. Heart: The heart size is normal. Mediastinum: The mediastinal contour is unremarkable. Lungs: Hyperinflation. Stable mild increased linear markings in the left mid lung suggestive of scarring. Bones: Degenerative changes are identified within the thoracic spine. RAD/Chest PA and Lateral IMPRESSION: Stable mild increased markings in the left mid lung suggestive of scarring. Reading Location: [place] [id number]
== END | disposition home or self-care (01) ==
LOC: MTRAD 12:50
PROVIDERS: PCP Family Medicine; Referring Provider Family Medicine; Visit Provider Family Medicine
DX: J18.9 Pneumonia, unspecified organism (principal)
CPT/HCPCS: 71046

== ENCOUNTER 2024-11-08 12:14 | Outpatient (CLI) | payer MEDICARE, OTHER, SELFPAY ==
[2024-11-08 12:35] VITALS: BP 159/74; PULSE 91; RESP 18; TEMP 36.5; O2SAT 91
== END 2024-11-08 23:59 | disposition home or self-care (01) ==
LOC: MEDOUTP 12:14
PROVIDERS: PCP Family Medicine; Referring Provider Nurse Practitioner Acute Care; Visit Provider Nurse Practitioner Acute Care
DX: J45.41 Moderate persistent asthma with (acute) exacerbation (principal)
CPT/HCPCS: 96372; J2357

== ENCOUNTER → 2024-11-27 | Outpatient (CLI) | payer MEDICARE, OTHER, SELFPAY ==
[2024-11-27 12:22] LABS: Hematocrit 38.8 % (37-47); Hemoglobin 12.4 g/dL (12.0-15.0); Immature Granulocytes Count 0.060 X10^3/uL (0.0-0.0); Mean Corp Hgb Conc 32.0 g/dL (32-36); Mean Corpuscular Volume 91.9 fL (81-99); Mean Platelet Vol. 11.4 fl (6.2-12.0); NRBC Flagged by Analyzer 0 % (0-5); Platelet Count 216 K/mm3 (150-450); RBC Distribution Width CV 15.7 % (11.6-14.6); RBC Distribution Width SD 52.9 fl (35.1-43.9); Red Blood Count 4.22 M/mm3 (4.2-5.4); White Blood Count 6.4 K/mm3 (4.4-11.0)
[2024-11-27 13:08] LABS: AST(SGOT) 25 U/L (<=31); Alanine Aminotransfer ALT/SGPT 19 U/L (<=34); Albumin, Serum 3.7 g/dL (3.4-4.8); Alkaline Phosphatase 72 U/L (35-104); Anion Gap 11 (5-15); BUN 7 mg/dL (4-19); BUN/Creat Ratio 9.7 RATIO (10-20); Calcium,Total 9.3 mg/dL (7.6-11.0); Carbon Dioxide 25.8 mmol/L (21.0-32.0); Chloride 103 mmol/L (98-108); Globulin 3.0 g/dL (2.2-4.2); Glucose 139 mg/dL (70-99); Potassium 4.2 mmol/L (3.3-5.1)
== END | disposition home or self-care (01) ==
LOC: MTLAB 09:52
PROVIDERS: PCP Family Medicine; Referring Provider Internal Medicine Rheumatology; Visit Provider Internal Medicine Rheumatology
DX: M06.4 Inflammatory polyarthropathy (principal); Z79.899 Other long term (current) drug therapy
CPT/HCPCS: 36415; 80053; 85025

== ENCOUNTER 2024-12-06 12:18 | Outpatient (CLI) | payer MEDICARE, OTHER, SELFPAY ==
[2024-12-06 12:29] VITALS: BP 153/67; PULSE 91; RESP 16; TEMP 35.8; O2SAT 92; BMI 39.1
== END 2024-12-06 23:59 | disposition home or self-care (01) ==
LOC: MEDOUTP 12:18
PROVIDERS: PCP Family Medicine; Referring Provider Nurse Practitioner Acute Care; Visit Provider Nurse Practitioner Acute Care
DX: J45.41 Moderate persistent asthma with (acute) exacerbation (principal)
CPT/HCPCS: 96372; J2357

== ENCOUNTER 2025-01-03 12:48 | Outpatient (CLI) | payer MEDICARE, OTHER, SELFPAY ==
[2025-01-03 13:05] VITALS: BP 167/70; PULSE 96; RESP 16; TEMP 36.2; O2SAT 95
== END 2025-01-03 23:59 | disposition home or self-care (01) ==
LOC: MEDOUTP 12:48
PROVIDERS: PCP Family Medicine; Referring Provider Nurse Practitioner Acute Care; Visit Provider Nurse Practitioner Acute Care
DX: J45.41 Moderate persistent asthma with (acute) exacerbation (principal)
CPT/HCPCS: 96372; J2357

== ENCOUNTER → 2025-01-19 | Outpatient (CLI) | payer MEDICARE, OTHER, SELFPAY ==
--- NOTE | 2025-01-19 07:59 | CT_ITS ---
PROCEDURE: CHEST WITHOUT CONTRAST 01/19/2025 REASON FOR EXAM: TREATED LUNG CANCER TECHNIQUE: Chest CT without contrast. Coronal and Sagittal reconstruction series were provided. One or more dose reduction techniques were used (e.g., Automated exposure control, adjustment of the mA and/or kV according to patient size, use of iterative reconstruction technique RADIATION DOSE SUMMARY: CTDlvol: 16.88 mGy DLP: 683.21 mGycm COMPARISON: CT chest without contrast, 09/18/2024. FINDINGS: Lower neck:Thyroid gland is normal. There is no supraclavicular lymphadenopathy. Mediastinum:No abnormal masses or lymphadenopathy. Heart and Aorta:Heart size is normal. There is no pericardial effusion. There is moderate calcific vascular disease of the coronary arteries and thoracic aorta. Esophagus:Normal. Upper Abdomen:There is calcific vascular disease of the visualized abdominal aorta. Chest wall:There is a benign calcification or biopsy clip in the right breast. The soft tissues of the chest wall are otherwise unremarkable. There is no axillary lymphadenopathy. There are findings of DISH throughout the thoracic spine. Lungs, airways and pleura: There is severe upper lobe predominant emphysema. There is patchy peribronchial consolidation in the left lung apex, not significantly changed. There are no new nodules, masses or areas of airspace consolidation. There are no pleural effusions. CT/Chest without Contrast IMPRESSION: 1. Stable area of patchy peribronchial consolidation in the left lung apex. 2. Other findings as noted, no significant change since the prior exam Reading Location: [id number]
== END | disposition home or self-care (01) ==
LOC: CT 07:58
PROVIDERS: PCP Family Medicine; Referring Provider Student in an Organized Health Care Education/Training Program; Visit Provider Student in an Organized Health Care Education/Training Program
DX: C34.32 Malignant neoplasm of lower lobe, left bronchus or lung (principal)
CPT/HCPCS: 71250

== ENCOUNTER 2025-02-02 10:24 | Outpatient (CLI) | payer MEDICARE, OTHER, SELFPAY ==
[2025-02-02 10:37] VITALS: BP 152/75; PULSE 92; RESP 16; TEMP 35.8; O2SAT 93
== END 2025-02-02 23:59 | disposition home or self-care (01) ==
LOC: MEDOUTP 10:24
PROVIDERS: PCP Family Medicine; Referring Provider Nurse Practitioner Acute Care; Visit Provider Nurse Practitioner Acute Care
DX: J45.41 Moderate persistent asthma with (acute) exacerbation (principal)
CPT/HCPCS: 96372; J2357

== ENCOUNTER → 2025-02-23 | Outpatient (CLI) | payer MEDICARE, OTHER, SELFPAY ==
--- OUTSIDE RECORDS SUMMARY | 2025-02-23 10:13 | XMS RPT_ITS | CCD ---
Author Organization [facility] Care Team Providers Care Service Coordinator Name Role Phone Eileen Harrison Unavailable Unavailable Eileen Harrison Unavailable Unavailable Mathew MANAGER SPRING, Eileen Hanin Unavailable Unavaila Dyan Villegas Unavailable Unavailable Dyan Beltrán Unavailable Unavailable Yensho MANAGER SPRING, Marla A Unavailable Unavailab le Farhana Harrisonica L Unavailable Unavailable Yensho MANAGER SPRING, Marla A Unavailable Unavailab le Ele Astudillo Unavailable Christina Cordero Unavailable Andrea Pete Unavailable Getachew Padron Unavailable El Miller Unavailable [facility], [facility] Unavailable Ele Astudillo Unavailable El Tyler Unavailable Unavailable Amadou Jackson Unavailable Michelle Prince Unavailable Polly Corea Unavailable Delphine Ramirez Unavailable Unavailable Slarb, Gracie Unavailable Unavailable Gravius, Omayra Unavailable Unavailable Jun Gonzálesn L Unavailable Unavailable AMITA Mena Unavailable Unavailable Delphine Rivera Unavailable Unavailable braden gonzáles Unavailable Unavailable Unavailable Unavailable Yensho MANAGER SPRING, Marla A Unavailable Unavailab Ele Sierra Attending Unavailable Ila Astudillohleen Referring Unavailable BaudilioIla maloneyEle Consulting Unavailable Baudilio, Ele Unavailable Christina Cordero Unavailable [phone] Andrea Pete Unavailable Clarke RankinReagane Unavailable El Miller Unavailable [facility], [facility] Unavailable Ele Astudillo Unavailable El Tyler Unavailable Unavailable Amadou Jackson Unavailable Michelle Prince Unavailable Polly Corea Unavailable Kevin Meadows Unavailable Unavailable Delphine Ramirez Unavailable Unavailable Slarb, Gracie Unavailable Unavailable Sheri Gonzáles L Unavailable Unavailable Gravjonny, Omayra Unavailable Unavailable Delphine Rivera Unavailable Unavailable braden Jay Unavailable Unavailable Unavailable Unavailable Marla Covarrubias LPN Unavailable Unavailab Eileen Paz Unavailable Unavailable Tiffanie Sharma Primary Care Provider [phone] Alejandra Hyatt RN Unavailable Unavailable Isckarus [facility], Mansour S Unavailable Tiffanie Sharma MD Primary Care Provider Tiffanie Sharma MD Primary Care Provider ANDREA TINSLEY Referring Unavailable ANDREA TINSLEY Attending Unavailable MIEDEL, TIFFANIE Primary Care Unavailable ISCKARUS, MANSOUR S Referring Unavailable ANDREA TINSLEY Attending Unavailable YUDIEDEL, TIFFANIE Primary Care Unavailable Tiffanie Sharma MD Primary Care Provider EDITH TIFFANIE Radha Primary Care Unavailable MIEDEL, TIFFANIE E Primary Care Unavailable MIEDEL, TIFFANIE E Primary Care Unavailable ALLYSSA SINGLETARY Referring Unavailable MIEDEL, TIFFANIE E Primary Care Unavailable MIEDEL, TIFFANIE E Primary Care Unavailable Miedel, Tiffanie Primary Care Unavailable nAum Hassan Consulting Unavailable Trav Neves Attending Unavailable Trav Neves Referring Unavailable Miedel, Tiffanie Primary Care Unavailable Anum Hassan Attending Unavailable Vellanki, Anum Referring Unavailable [facility] Primary Care Unavailable Butts APPIAN DEVELOPER, Marta Referring Unavailable Butts APPIAN DEVELOPER, Marta Attending Unavailable [facility], Tiffanie Attending Unavailable [facility] Primary Care Unavailable Hied, Tiffanie Referring Unavailable [facility] Primary Care Unavailable Butts APPIAN DEVELOPER, Marta Referring Unavailable Butts APPIAN DEVELOPER, Marta Attending Unavailable [facility], Tiffanie Attending Unavailable [facility], Tiffanie Referring Unavailable [facility] Primary Care Unavailable [facility] Primary Care Unavailable Butts APPIAN DEVELOPER, Marta Referring Unavailable Butts APPIAN DEVELOPER, Marta Attending Unavailable [facility] Primary Care Unavailable Jase Post Attending Unavailable Casper Linder [facility] Butts APPIAN DEVELOPER, Marta Attending Unavailable Butts APPIAN DEVELOPER, Marta Referring Unavailable [facility] Primary Care Unavailable Butts APPIAN DEVELOPER, Marta Referring Unavailable Butts APPIAN DEVELOPER, Marta Attending Unavailable [facility] Primary Care Unavailable Butts APPIAN DEVELOPER, Marta Referring Unavailable Butts APPIAN DEVELOPER, Marta Attending Unavailable Casper Linder Consulting Unavailable [facility], Tiffanie Attending Unavailable [facility] Primary Care Unavailable [facility], Tiffanie Referring Unavailable [facility] Primary Care Unavailable Butts APPIAN DEVELOPER, Marta Referring Unavailable Butts APPIAN DEVELOPER, Marta Attending Unavailable [facility] Primary Care Unavailable Butts APPIAN DEVELOPER, Marta Referring Unavailable Butts APPIAN DEVELOPER, Marta Attending Unavailable [facility] Primary Care Unavailable Butts APPIAN DEVELOPER, Marta Referring Unavailable Butts APPIAN DEVELOPER, Marta Attending Unavailable [facility] Primary Care Unavailable Anum Hassan Attending Unavailable LuannelankiAnum Referring Unavailable [facility] Primary Care Unavailable [facility], Tiffanie Attending Unavailable [facility], Tiffanie Attending Unavailable [facility] Primary Care Unavailable [facility] Primary Care Unavailable Butts APPIAN DEVELOPER, Marta Referring Unavailable Butts APPIAN DEVELOPER, Marta Attending Unavailable [facility] Primary Care Unavailable Trav Neves Attending Unavailable Trav Neves Referring Unavailable [facility] Primary Care Unavailable Casper Linder Attending Unavailable Casper Linder Referring Unavailable Casper Linder Admitting Unavailable Marilee Lopez Consulting Unavailable [facility] Primary Care Unavailable Butts APPIAN DEVELOPER, Marta Attending Unavailable Butts APPIAN DEVELOPER, Marta Referring Unavailable Miedel, Tiffanie Primary Care Unavailable Linder, Casper Referring Unavailable Linder, Casper Admitting Unavailable Marilee Lopez Consulting Unavailable Marilee Lopez Attending Unavailable Linder, Casper Consulting Unavailable Miedel, Tiffanie Attending Unavailable Miedel, Tiffanie Primary Care Unavailable Miedel, Tiffanie Referring Unavailable Miedel, Tiffanie Primary Care Unavailable Gerald Hough Consulting Unavailable Gerald Hough Attending Unavailable Linder, Casper Referring Unavailable Linder, Casper Consulting Unavailable Miedel, Tiffanie Primary Care Unavailable Miedel, Tiffanie Referring Unavailable Butts APPIAN DEVELOPER, Marta Attending Unavailable Miedel, Tiffanie Primary Care Unavailable Beckie APPIAN DEVELOPER, Marta Attending Unavailable Miedel, Tiffanie Referring Unavailable Miedel, Tiffanie Referring Unavailable Miedel, Tiffanie Primary Care Unavailable Beckie APPIAN DEVELOPER, Marta Attending Unavailable Miedel, Tiffanie Primary Care Unavailable Trav Neves Attending Unavailable Miedel, Tiffanie Referring Unavailable Miedel, Tiffanie Referring Unavailable Miedel, Tiffanie Primary Care Unavailable Trav Neves Attending Unavailable Miedel, Tiffanie Primary Care Unavailable Butts APPIAN DEVELOPER, Marta Referring Unavailable Beckie APPIAN DEVELOPER, Marta Attending Unavailable Miedel, Tiffanie Primary Care Unavailable Butts APPIAN DEVELOPER, Marta Attending Unavailable Butts APPIAN DEVELOPER, Marta Referring Unavailable Miedel, Tiffanie Primary Care Unavailable Linder, Casper Attending Unavailable Linder, Casper Referring Unavailable Miedel, Tiffanie Attending Unavailable Miedel, Tiffanie Primary Care Unavailable Miedel, Tiffanie Attending Unavailable Miedel, Tiffanie Primary Care Unavailable Miedel, Tiffanie Primary Care Unavailable Beckie APPIAN DEVELOPER, Marta Attending Unavailable Butts APPIAN DEVELOPER, Marta Referring Unavailable Miedel, Tiffanie Primary Care Unavailable Miedel, Tiffanie Attending Unavailable Miedel, Tiffanie Attending Unavailable Miedel, Tiffanie Primary Care Unavailable Miedel, Tiffanie Referring Unavailable Miedel, Tiffanie Attending Unavailable Miedel, Tiffanie Primary Care Unavailable Miedel, Tiffanie Attending Unavailable Miedel, Tiffanie Referring Unavailable Miedel, Tiffanie Primary Care Unavailable Allergies Allergy Classification Reported Allergen(s) Allergy Type Date of Onset Reaction(s) Facility (8 sources) Seasonal allergy; Translations: [SEASONAL ALLERGIES] Propensity to adverse reactions 8 Intolerance [facility] Work Phone: NEGATED: Highlighted row has been [...] days. 14 tablet 0 02/17/2022 02/24/2022 Active Start: 12-12-2008 End: 02-04-2009 take 1 tablet by mouth twice daily AUGMENTIN, 875-125MG (Oral Tablet) 1 Tablet bid for 0 days Quantity: 20 {Tablet} Refills: 0 Ordered: 12-Dec-2008 Delphine Ramirez LPN Start : 12-Dec-2008 End : 04-Feb-2009 Inactive Comment on above: Take 1 tablet by jose daniel th twice daily for 7 days. apixaban 5 mg oral tablet (3 sources) Factor Xa Inhibitor Start: 3 take 1 tablet by mouth every twelve hours ELIQUIS 5 mg tab(s) Take 1 tablet by mouth every 12 hours. 02/03/2023 Active Comment on above: Take 1 tablet by jose daniel th every 12 hours. cephalexin 500 mg oral capsule (1 source) Cephalosporin Antibacterial Start: 4 End: 4 take 1 capsule by mouth three times daily cephALEXin (KEFLEX) 500 mg capsule Take 1 capsule by mouth three times a day for 5 days. 15 capsule 10/19/2023 10/24/2023 Active doxycycline hyclate 100 mg oral tablet (5 sources) Tetracycline-class Drug Start: 4 End: 4 take 1 tablet by mouth twice daily doxycycline (VIBRA-TABS) 100 mg tablet Take 1 tablet by mouth two times a day for 5 days. 10 tablet 10/19/2023 10/24/2023 Active Start: 05-02-2023 End: 05-12-2023 take 1 tablet by mouth twice daily doxycycline (VIBRA-TABS) 100 mg tablet Take 1 tablet by mouth two times a day for 10 days. 20 tablet 0 05/02/2023 05/12/2023 Active Start: 12-03-2022 End: 12-10-2022 take 1 tablet by mouth twice daily doxycycline (VIBRA-TABS) 100 mg tablet Indications: Sinobronchitis Take 1 tablet by mouth two times a day for 7 days. 14 tablet 0 12/03/2022 12/10/2022 Active Start: 02-17-2022 End: 02-24-2022 take 1 tablet by mouth twice daily doxycycline monohydrate 100 mg tablet Indications: Community acquired pneumonia of right upper lobe of lung Take 1 tablet by mouth twice daily for 7 days. 14 tablet 0 02/17/2022 02/24/2022 Active Comment on above: Take 1 tablet by jose daniel th twice daily for 7 days. Take 1 tablet by jose daniel th two times a day for 7 days. Take 1 tablet by jose daniel th two times a day for 10 days. 0.5 ml dulaglutide 1.5 mg/ml auto-injector (1 source) GLP-1 Receptor Agonist Dulaglutide 0.75 MG/0.5ML Solution Pen-injector injection Inject under the skin once a week. 0 Active 30 actuat fluticasone furoate 0.1 mg/actuat / umeclidinium 0.0625 mg/actuat / vilanterol 0.025 mg/actuat dry powder inhaler (4 sources) Anticholinergic, Corticosteroid, beta2-Adrenergic Agonist Start: 04-01-2023 take 1 puff(s) by mouth once daily TRELEGY ELLIPTA 100-62.5-25 mcg inhalation powder inhale 1 puff by mouth and into the lungs once daily 04/01/2023 Active take 1 puff(s) by in halation once daily [id number]-wfrfdhgmh-Jukhzs 100-62.5-25 MCG/ACT Aerosol Powder, breath activated inhaler Inhale 1 puff daily. 0 Active Comment on above: inhale 1 puff by jose daniel th and into the lungs once daily folic acid 1 mg oral tablet (8 sources) Start: 09-09-2020 take 2 tablets by mouth once daily folic acid 1 mg tablet Take 2 mg by mouth once daily. 09/09/2020 Active take 2 mg by mouth once daily Fo lic Acid 20 MG capsule Take 2 mg by mouth daily. 0 Active Comment on above: Take 2 mg by mouth o nce daily. gabapentin 300 mg oral capsule (19 sources) Anti-epileptic Agent Start: 05-06-2021 gabapentin (NEURONTIN) 300 mg capsule 05/06/2021 Active Start: 08-02-2013 End: 12-14-2013 take 1 capsule by mouth once daily GABAPENTIN, 300MG (Oral Capsule) 1 (one) Capsule QD for 0 days Quantity: 30 {Capsule} Refills: 3 Ordered: 14-Dec-2013 Delphine Ramirez LPN Start : 02-Aug-2013 End : 14-Dec-2013 Inactive Comment on above: take 1 capsule by mo ut at bedtime for 3 days then 1 capsule by m... (REFER TO PRESCRIPTION NOTES). hydroxychloroquine sulfate 200 mg oral tablet (8 sources) Antimalarial, Antirheumatic Agent Start: 2022 take 2 tablets by mouth once daily Hydroxychloroquine 200 MG tablet Take 2 tablets by mouth daily. 0 03/24/2022 Active Start: 09-29-2020 take 1 tablet by jose daniel twice daily hydrOXYchloroQUINE (PLAQUENIL) 200 mg tablet Take 200 mg by mouth twice daily. 09/29/2020 Active Comment on above: Take 200 mg by mouth twice daily. methotrexate 2.5 mg oral tablet (8 sources) Folate Analog Metabolic Inhibitor Start: take 6 tablets by mouth every week methotrexate 2.5 mg tablet Take 6 tablets by mouth one time a week. 09/27/2020 Active Methotrexate Sod ium 5 MG tablet Take by mouth once a week. 0 Active Comment on above: Take 6 tablets by mo ut one time a week. Nebulizer (7 sources) Start: 06-09-19 15 Nebulizer Indications: Acute bronchitis , Asthma 1 Units every 6 hours as needed (wheezing or SOB). NEBULIZER FOR HOME USE. DX: acute bronchitis, asthma 1 Units 0 06/08/2014 Active Comment on above: 1 Units every 6 hour s as needed (wheezing or SOB). NEBULIZER FOR HOME USE. DX: acute bronchitis, asthma 1 ml omalizumab 150 mg/ml prefilled syringe (1 source) Anti-IgE inject 1 mL by subcutaneous injection every month Omalizumab 150 MG/ML Solution Prefilled Syringe Inject 1 mL under the skin once as directed. Monthly 0 Active predniSONE 10 mg oral tablet (20 sources) Corticosteroid Start: 05-02-19 24 predniSONE (DELTASONE) 10 mg tablet Take 4 tabs daily for 3 days, then 2 tabs daily for 3 days, then 1 tab daily for 3 days with food. 21 tablet 05/02/2023 Active Start: 12-03-2022 End: 12-08-2022 take 2 tablets by mouth once daily predniSONE (DELTASONE) 20 mg tablet Take 2 tablets by mouth once daily for 5 days. 10 tablet 0 12/03/2022 12/08/2022 Active Start: 09-15-2017 End: 11-09-2017 PredniSONE 10 MG Oral Tablet 3 (three) Tablet pills for 4 days 2 pills for 4 days 1 pill for 4 days for 0 days Quantity: 24 {Tablet} Refills: 0 Ordered: 09-Nov-2017 Omayra Garcia Start : 15-Sep-2017 End : 09-Nov-2017 Inactive Comments: with food in am Start: 12-02-2016 take 2 tablets by mo uth once daily PREDNISONE 20 MG TABS Take 2 tabs by mouth daily x 5 days PREDNISONE [id number] Twan Lety Caesar HOLLOWAY Start: 06-12-2016 End: 07-30-2016 PREDNISONE TABS 40mg daily a t 08 PREDNISONE TABS [id number] Twan Lety Caesar HOLLOWAY Start: 06-12-2016 PREDNISONE TAB S 40mg daily at 0800 PREDNISONE TABS [id number] Eileen Harrison Start: 06-12-2016 End: 07-30-2016 PREDNISONE TABS 40mg daily a t 0800 PREDNISONE TABS [id number] Twan Maynard DO Start: 06-12-2016 PREDNISONE TAB S 40mg daily at 0800 PREDNISONE TABS [id number] Eileen Harrison Start: 06-24-2015 End: 06-01-2016 take 1 tablet by mouth once daily PredniSONE 20 MG Oral Tablet 1 (one) Tablet qd for 0 days Quantity: 4 {Tablet} Refills: 0 Ordered: 01-Jun-2016 Delphine Ramirez JESE Start : 24-Jun-2015 End : 01-Jun-2016 Inactive Start: 06-25-2014 End: 09-04-2014 take 1 tablet by mouth at mealtime PREDNISONE (THALIA), 5MG (Oral Tablet) 1 Tablet aud for 0 days Quantity: 1 {Package} Refills: 0 Ordered: 04-Sep-2014 Mraia Cross LPN Start : 25-Jun-2014 End : 04-Sep-2014 Discontinued Comments: with food Comment on above: with food with food in am Take 2 tablets by mo ut once daily for 5 days. Take 4 tabs daily fo r 3 days, then 2 tabs daily for 3 days, then 1 tab daily for 3 days with food. pregabalin 75 mg oral capsule (1 source) Start: 04-17-2022 take 1 capsule by mouth twice daily pregabalin 75 MG capsule Take 1 capsule by mouth 2 times daily. 0 04/17/2022 Active Completed/Discontinued Medications Medication Drug Class(es) Dates [...] AEPB One puff INH BID ACLIDINIUM BROMIDE [id number] Twan Maynard DO Start: 07-30-2016 take 1 puff(s) by in halation twice daily TUDORZA PRESSAIR 400 MCG/ACT AEPB One puff INH BID ACLIDINIUM BROMIDE [id number] Twan Maynard DO Start: 06-10-2016 End: 08-12-2016 TUDORZA PRESSAIR AEPB One pu ff twice daily ACLIDINIUM BROMIDE AEPB [id number] Dyan Beltrán Start: 06-10-2016 TUDORZA PRESSA IR AEPB One puff twice daily ACLIDINIUM BROMIDE AEPB [id number] Eileen Raleigh Harrison Start: 06-10-2016 TUDORZA PRESSA IR AEPB One puff twice daily ACLIDINIUM BROMIDE AEPB [id number] Eileen Raleigh Harrison Start: 06-10-2016 End: 08-12-2016 TUDORZA PRESSAIR AEPB One pu ff twice daily ACLIDINIUM BROMIDE AEPB [id number] Dyan Beltrán Start: 03-11-2016 End: 09-15-2017 Tudorza Pressair 400 MCG/ACT Inhalation Aerosol Powder Breath Activated 1 Aero Pow Br Act bid for 0 days Quantity: 1 {Inhaler} Refills: 4 Ordered: 15-Sep-2017 Sheri Gonzáles LPN Start : 11-Mar-2016 End : 15-Sep-2017 Inactive ACLIDINIUM BROMI DE (TUDORZA PRESSAIR INHALATION) Inhale as instructed. Active ACLIDINIUM BROMI DE (TUDORZA PRESSAIR INHALATION) Inhale as instructed. 0 Active Comment on above: Inhale as instructed . ACLIDINIUM BROMIDE AEPB (12 sources) Start: 06-10-2016 TUDORZA PRESSAIR AEPB One puff twice daily ACLIDINIUM BROMIDE AEPB [id number] Eileen Raleigh Harrison Start: 06-10-2016 End: 08-12-2016 TUDORZA PRESSAIR AEPB One pu ff twice daily ACLIDINIUM BROMIDE AEPB [id number] Dyan Beltrán Start: 06-10-2016 End: 08-12-2016 TUDORZA PRESSAIR AEPB One pu ff twice daily ACLIDINIUM BROMIDE AEPB [id number] Dyan Beltrán Start: 06-10-2016 TUDORZA PRESSA IR AEPB One puff twice daily ACLIDINIUM BROMIDE AEPB [id number] Eileen Harrison 200 actuat albuterol 0.09 mg/actuat metered dose inhaler (20 sources) beta2-Adrenergic Agonist Start: 10-12-2016 Linda jaspal HFA 108 (90 Base) MCG/ACT Inhalation Aerosol Solution 2 (two) Aerosol Soln TID prn for 0 days Quantity: 1 {Box} Refills: 6 Ordered: 12-Oct-2016 Delphine Rivera Start : 12-Oct-2016 Active Start: 06-29-2016 take 2 puff(s) by in halation every four hours as needed VENTOLIN HFA 108 (90 Base) MCG/ACT AERS INH 2 puffs q4h as needed ALBUTEROL SULFATE [id number] Twan Maynard DO Start: 06-29-2016 take 2 puff(s) by in halation every four hours as needed VENTOLIN HFA 108 (90 Base) MCG/ACT AERS INH 2 puffs q4h as needed ALBUTEROL SULFATE [id number] Eileen Little Priyanka MANAGER SPRING Start: 06-10-2016 ALBUTEROL SULF ATE 1.25 MG/3ML NEBU Every 4 hrs as needed ALBUTEROL SULFATE [id number] Twan Maynard DO Start: 06-04-2016 End: 10-05-2016 Albuterol Sulfate (2.5 MG/3M L) 0.083% Inhalation Nebulization Solution 1 (one) Nebulized Soln Q4-6 hours PRN for 0 days Quantity: 1 {Box} Refills: 1 Ordered: 05-Oct-2016 Gracie Lind LPN Start : 04-Jun-2016 End : 05-Oct-2016 Discontinued Start: 05-18-2016 End: 11-09-2017 ProAir HFA 108 (90 Base) MCG /ACT Inhalation Aerosol Solution 2 (two) Aerosol Soln Aerosol Soln puffs q 6hrs prn for 0 days Quantity: 1 {Box} Refills: 3 Ordered: 09-Nov-2017 Omayra Garcia Start : 18-May-2016 End : 09-Nov-2017 Inactive Start: 06-08-2014 albuterol (PRO VENTIL) 2.5 mg /3 mL (0.083 %) nebulizer solution Indications: Acute bronchitis , Asthma Use 3 mL via nebulizer every 6 hours as needed for Wheezing/Shortness of Breath. 1 vial contains 3 ml. 100 Vial 1 06/08/2014 Active Start: 12-14-2010 take 2 puff(s) by in halation every six hours as needed albuterol HFA (VENTOLIN HFA) 90 mcg/Actuation INHALATION inhaler Inhale 2 Puffs as instructed every 6 hours as needed. 1 Inhaler 0 12/14/2010 Active Start: 09-11-2010 End: 02-13-2011 ALBUTEROL SULFATE, (2.5 MG/3ML)0.083% (Inhalation Nebulization Solution) 1 Nebulized Soln prn for 0 days Quantity: 1 {Nebulized_Soln} Refills: 1 Ordered: 13-Feb-2011 Rajesh AMITA Start : 11-Sep-2010 End : 13-Feb-2011 Inactive Comments: needs inhaler Start: 06-25-2008 End: 06-25-2008 ALBUTEROL SULFATE HFA, 108MC G/ACT (Inhalation Aerosol Soln) 1 Aerosol Soln q 4-6hr prn for 0 days Quantity: 1 {Aerosol_Soln} Refills: 1 Ordered: 25-Jun-2008 Delphine Ramirez LPN Start : 25-Jun-2008 End : 25-Jun-2008 Discontinued Comments: This order discontinued per [facility]. End: 04-22-2022 albuterol 1.25 MG/3ML Nebu S oln Take 3 mL by nebulization daily. 0 04/22/2022 Discontinued take 1 puff(s) by in halation every four hours as needed Albuterol 108 (90 Base) MCG/ACT Aero Soln inhaler Inhale 1 puff every 4 hours as needed for Shortness of Breath. 0 Active Comment on above: This order discontin ued per [facility]. needs inhaler Inhale 2 Puffs as in structed every 6 hours as needed. Use 3 mL via nebuliz er every 6 hours as needed for Wheezing/Shortness of Breath. 1 vial contains 3 ml. allergy shots (12 sources) allergy shots we ekly Active amoxicillin 875 mg oral tablet (12 sources) Penicillin-class Antibacterial Start: 07-26-19 10 End: 02-15-20 10 take 1 tablet by mouth twice daily AMOXIL, 875MG (Oral Tablet) 1 (one) Tablet bid for 0 days Quantity: 20 {Tablet} Refills: 0 Ordered: 14-Feb-2010 Delphine Ramirez LPN Start : 25-Jul-2009 End : 14-Feb-2010 Discontinued Comments: This order discontinued per [facility]. Comment on above: This order discontin ued per [facility]. azithromycin 250 mg oral tablet (12 sources) Macrolide Antimicrobial Start: 06-08-19 End: 11-25-19 08 ZITHROMAX Z-THALIA, 250MG (Oral Tablet) 1 Tablet TAD for 0 days Quantity: 1 {Package(s)} Refills: 0 Ordered: 08-Jun-2007 Delphine Ramirez LPN Start : 08-Jun-2007 End : 25-Nov-2007 Inactive benzonatate 200 mg oral capsule (12 sources) Non-narcotic Antitussive Start: 11-25-19 End: 12-06-19 take 1 capsule by mouth three times daily TESSALON, 200MG (Oral Capsule) 1 (one) Capsule TID for 0 days Quantity: 30 {Capsule} Refills: 0 Ordered: 25-Nov-2007 Delphine Ramirez LPN Start : 25-Nov-2007 End : 06-Dec-2007 Inactive Comments: do not chew Comment on above: do not chew 60 actuat budesonide 0.16 mg/actuat / formoterol fumarate 0.0045 mg/actuat metered dose inhaler (20 sources) Corticosteroid, beta2-Adrenergic Agonist Start: 07-01-19 Symbicort 160-4.5 MCG/ACT Inhalation Aerosol 2 (two) Aerosol bid for 0 days Quantity: 1 {Box} Refills: 2 Ordered: 30-Jun-2016 Gracie Lind LPN Start : 30-Jun-2016 Active Start: 06-10-2016 SYMBICORT 160- 4.5 MCG/ACT AERO Two puffs twice daily BUDESONIDE-FORMOTEROL FUMARATE [id number] Twan Maynard DO Start: 06-10-2016 SYMBICORT 160- 4.5 MCG/ACT AERO Two puffs twice daily BUDESONIDE-FORMOTEROL FUMARATE [id number] Twan Maynard DO Start: 06-10-2016 SYMBICORT 160- 4.5 MCG/ACT AERO Two puffs twice daily BUDESONIDE-FORMOTEROL FUMARATE [id number] Eileen Harrison take 2 puff(s) by in halation twice daily budesonide-formoterol (SYMBICORT) 160-4.5 mcg/actuation inhaler Inhale 2 Puffs as instructed twice daily. Active End: 04-22-2022 take 2 puff(s) by inhalation every twelve hours budesonide-formoterol 160-4.5 mcg/puff Aerosol inhaler Inhale 2 puffs every 12 hours. 0 04/22/2022 Discontinued take 2 puff(s) by in halation twice daily budesonide-formoterol (SYMBICORT) 160-4.5 mcg/actuation inhaler Inhale 2 Puffs as instructed twice daily. 0 Active Comment on above: Inhale 2 Puffs as in structed twice daily. cefadroxil 500 mg oral capsule (12 sources) Cephalosporin Antibacterial Start: 11-10-19 18 End: 11-17-19 18 take 1 capsule by mouth twice daily Cefadroxil 500 MG Oral Capsule 1 (one) Capsule PO BID for 7 days Quantity: 14 {Capsule} Refills: 0 Ordered: 09-Nov-2017 Delphine Rivera Start : 09-Nov-2017 End : 16-Nov-2017 Inactive cefdinir 300 mg oral capsule (12 sources) Cephalosporin Antibacterial Start: 11-12-19 13 End: 09-21-19 14 take 1 capsule by mouth twice daily CEFDINIR, 300MG (Oral Capsule) 1 Capsule bid for 0 days Quantity: 10 {Capsule} Refills: 0 Ordered: 20-Sep-2013 Delphine Ramirez LPN Start : 11-Nov-2012 End : 20-Sep-2013 Inactive ciprofloxacin 3 mg/ml ophthalmic solution (12 sources) Quinolone Antimicrobial Start: 04-21-19 18 End: 04-27-19 18 Ciprofloxacin HCl 0.3 % Ophthalmic Solution 1 (one) Metric Drop UAD for 6 days Quantity: 1 {Bottle} Refills: 0 Ordered: 21-Apr-2017 Kassandra Dickens Start : 21-Apr-2017 End : 27-Apr-2017 Inactive Comments: 2 drops q2hrs WA x2d then q4hrs WA x4days Comment on above: 2 drops q2hrs WA x2d then q4hrs WA x4days ciprofloxacin 2 mg/ml / hydrocortisone 10 mg/ml otic suspension (12 sources) Corticosteroid, Quinolone Antimicrobial Start: 04-20-19 18 End: 04-21-19 18 Cipro HC 0.2-1 % Otic Suspension 1 (one) Metric Drop 1-2 drops in affected eye q2hrs while awake x 2 days, then q4hrs while awake x 4days for 0 days Quantity: 1 {Bottle} Refills: 0 Ordered: 21-Apr-2017 Maninder Kassandra Start : 20-Apr-2017 End : 21-Apr-2017 Discontinued citalopram 10 mg oral tablet (20 sources) Serotonin Reuptake Inhibitor Start: 06-25-19 18 End: 09-16-19 18 take 1 tablet by mouth once daily at bedtime CeleXA 10 MG Oral Tablet 1 (one) Tablet qhs for 0 days Quantity: 30 {Tablet} Refills: 2 Ordered: 15-Sep-2017 Sheri Gonzáles LPN Start : 24-Jun-2017 End : 15-Sep-2017 Inactive Start: 06-29-2016 take 1 tablet by jose daniel th once daily CELEXA 10 MG TABS One tablet by mouth daily CITALOPRAM HYDROBROMIDE [id number] Eileen Mathew LPN codeine phosphate 2 mg/ml / guaiFENesin 20 mg/ml / pseudoephedrine hydrochloride 6 mg/ml oral solution (12 sources) alpha-Adrenergic Agonist, Opioid Agonist Start: 02-17-2012 End: 03-16-2012 take 1 [tsp_us] by mouth every six hours as needed CHERATUSSIN DAC, 30-10-100MG/5ML (Oral Solution) 1 tsp q 6 hr prn for 0 days Quantity: 90 {Solution} Refills: 0 Ordered: 16-Mar-2012 Delphine Ramirez LPN Start : 17-Feb-2012 End : 16-Mar-2012 Inactive Comments: ninety Comment on above: ninety cyclobenzaprine hydrochloride 5 mg oral tablet (12 sources) Muscle Relaxant Start: 12-12-2014 End: 09-28-2016 take 1 tablet by mouth three times daily as needed Cyclobenzaprine HCl 5 MG Oral Tablet 1 (one) Tablet Tablet tid prn for muscle relaxation for 0 days Quantity: 30 {Tablet} Refills: 0 Ordered: 28-Sep-2016 Gracie Lind LPN Start : 12-Dec-2014 End : 28-Sep-2016 Discontinued diclofenac 18 mg oral capsule (12 sources) Nonsteroidal Anti-inflammatory Drug Start: 12-12-2014 End: 06-12-2015 take 1 capsule by mouth three times daily ZORVOLEX, 18MG (Oral Capsule) 1 (one) Capsule Capsule tid for 0 days Quantity: 16 {Capsule} Refills: 0 Ordered: 12-Jun-2015 Delphine Ramirez LPN Start : 12-Dec-2014 End : 12-Jun-2015 Inactive estrogens, conjugated (mcfp) 0.625 mg oral tablet (12 sources) Estrogen Start: 09-04-2011 End: 07-15-2012 take 1 tablet by mouth once daily PREMARIN, 0.625MG (Oral Tablet) 1 Tablet qd for 0 days Quantity: 30 {Tablet} Refills: 3 Ordered: 15-Jul-2012 Delphine Ramirez LPN Start : 04-Sep-2011 End : 15-Jul-2012 Inactive 24 hr etodolac 400 mg extended release oral tablet (20 sources) Nonsteroidal Anti-inflammatory Drug Start: 06-01-2016 End: 09-28-2016 take 2 tablets by mouth every twenty-four hours, then take 1 tablet by mouth once daily at mealtime Etodolac ER 400 MG Oral Tablet Extended Release 24 Hour 2 (two) Tablet ER 24HR Tablet ER 24HR qd with food for 0 days Quantity: 60 {Tablet} Refills: 0 Ordered: 28-Sep-2016 Gracie Lind LPN Start : 01-Jun-2016 End : 28-Sep-2016 Discontinued Start: 02-06-2015 End: 02-06-2015 take 2 tablets by mouth once daily at mealtime ETODOLAC ER, 400MG (Oral Tablet Extended Release 24 Hour) 2 (two) Tablet ER 24HR qd with food for 0 days Quantity: 60 {Tablet} Refills: 3 Ordered: 06-Feb-2015 Anabell Mcclure Start : 06-Feb-2015 End : 06-Feb-2015 Inactive 12 hr fexofenadine hydrochloride 60 mg / pseudoephedrine hydrochloride 120 mg extended release oral tablet (12 sources) alpha-Adrenergic Agonist, Histamine-1 Receptor Antagonist Start: 06-30-2007 End: 08-09-2008 take 60-120 mg by mouth twice daily VISHAL-D 12 HOUR, 60-120MG (Oral Tablet Extended Release 12 Hour) 1 Tablet ER 12HR bID for 0 days Quantity: 30 {Tablet_ER_12HR} Refills: 0 Ordered: 30-Jun-2007 Dyan Ann Start : 30-Jun-2007 End : 09-Aug-2008 Discontinued Start: 06-30-2007 End: 08-09-2008 take 1 tablet by mouth every twelve hours VISHAL-D 12 HOUR, 60-120MG (Oral Tablet Extended Release 12 Hour) 1 Tablet ER 12HR bID for 0 days Quantity: 30 {Tablet_ER_12HR} Refills: 0 Ordered: 30-Jun-2007 Dyan Ann Start : 30-Jun-2007 End : 09-Aug-2008 Discontinued fluticasone propionate 0.05 mg/actuat metered dose nasal spray (20 sources) Corticosteroid Start: 07-30-2016 take 2 spray(s) nasal route once daily FLONASE 50 MCG/ACT SUSP 2 sprays in each nostril daily FLUTICASONE PROPIONATE [id number] Twan Maynard DO Start: 07-30-2016 take 2 spray(s) nasa l route once daily FLONASE 50 MCG/ACT SUSP 2 sprays in each nostril daily FLUTICASONE PROPIONATE [id number] Twan Maynard DO Start: 05-17-2007 End: 06-07-2007 VERAMYST, 27.5MCG/SPRAY (Edward al Suspension) 2 (two) Suspension Daily for 0 days Refills: 0 Ordered: 17-May-2007 Maria Cross LPN Start : 17-May-2007 End : 07-Jun-2007 Discontinued 60 actuat fluticasone propionate 0.25 mg/actuat / salmeterol 0.05 mg/actuat dry powder inhaler (20 sources) Corticosteroid, beta2-Adrenergic Agonist Start: 02-17-2012 End: 02-17-2012 take 1 puff(s) by inhalation twice daily ADVAIR DISKUS, 250-50MCG/DOSE (Inhalation Aerosol Powder Breath Activated) 1 puff Aero Pow Br Act bid for 0 days Quantity: 1 {Aero_Pow_Br_Act} Refills: 3 Ordered: 17-Feb-2012 Ele Astudillo DO, DO, Kathleen Start : 17-Feb-2012 End : 17-Feb-2012 Discontinued Start: 07-05-2009 End: 10-30-2009 take 1 puff(s) by inhalation twice daily ADVAIR DISKUS, 250-50MCG/DOSE (Inhalation Miscellaneous) 1 puff Misc BID for 0 days Quantity: 1 {Misc} Refills: 3 Ordered: 05-Jul-2009 Delphine Ramirez LPN Start : 05-Jul-2009 End : 30-Oct-2009 Discontinued Comments: This order discontinued per [employer]. Comment on above: This order discontin ued per [employer]. 12 hr guaiFENesin 1200 mg extended release oral tablet (20 sources) Start: 06-10-2016 End: 06-29-2016 MUCINEX MAXIMUM STRENGTH 1200 MG [id number] One tab twice daily GUAIFENESIN [id number] Eileen Storey Hunter Start: 06-10-2016 End: 06-29-2016 MUCINEX MAXIMUM STRENGTH 120 0 MG [id number] One tab twice daily GUAIFENESIN [id number] Eileen Anabel Mathew LPN Start: 06-10-2016 MUCINEX MAXIMU M STRENGTH 1200 MG [id number] One tab twice daily GUAIFENESIN [id number] Eileen Raleigh Harrison Start: 05-17-2007 End: 06-07-2007 MUCINEX, 600MG (Oral Tablet Extended Release 12 Hour) 2 (two) Tablet ER 12HR BID for 0 days Refills: 0 Ordered: 17-May-2007 Maria Cross LPN Start : 17-May-2007 End : 07-Jun-2007 Discontinued homatropine methylbromide 0.3 mg/ml / HYDROcodone bitartrate 1 mg/ml oral solution (12 sources) Opioid Agonist, Cholinergic Muscarinic Agonist Start: 2007 End: 12-06-2007 HYCODAN, 5-1.5MG/5ML (Oral Syrup) 1-2 Syrup Q 6hr/PRN for 0 days Quantity: 90 {Syrup} Refills: 0 Ordered: 25-Nov-2007 Delphine Ramirez LPN Start : 25-Nov-2007 End : 06-Dec-2007 Inactive hydroCHLOROthiazide 12.5 mg / lisinopril 20 mg oral tablet (12 sources) Thiazide Diuretic, Angiotensin Converting Enzyme Inhibitor Start: 01-12-2018 End: 01-12-2018 take 1 tablet by mouth once daily Lisinopril-Hydroc hlorothiazide 20-12.5 MG Oral Tablet 1 (one) Tablet daily for 30 days Quantity: 30 {Tablet} Refills: 2 Ordered: 12-Jan-2018 Laura Malhotra MD Start : 12-Jan-2018 End : 12-Jan-2018 Inactive Comments: cough Comment on above: cough hydroCHLOROthiazide 12.5 mg / losartan potassium 50 mg oral tablet (12 sources) Thiazide Diuretic, Angiotensin 2 Receptor Taylor Start: 04-28-2018 End: 05-26-2018 take 1 tablet by mouth once daily Hyzaar 50-12.5 MG Oral Tablet 1 (one) Tablet qd for 30 days Quantity: 30 {Tablet} Refills: 3 Ordered: 26-May-2018 Jose Omayra Start : 28-Apr-2018 End : 26-May-2018 Discontinued Start: 01-12-2018 take 1 tablet by jose daniel th once daily Hyzaar 50-12.5 MG Oral Tablet 1 (one) Tablet qd for 30 days Quantity: 30 {Tablet} Refills: 3 Ordered: 12-Jan-2018 Ele Astudillo DO, DO, Kathleen Start : 12-Jan-2018 Active lansoprazole 15 mg delayed release oral capsule (19 sources) Proton Pump Inhibitor Start: 06-29-2016 take 1 tablet by mouth once daily PREVACID 24HR 15 MG CPDR One tablet by mouth daily LANSOPRAZOLE [id number] Eileen Mathew LPN Start: 06-29-2016 take 1 tablet by jose daniel th once daily PREVACID 24HR 15 MG CPDR One tablet by mouth daily LANSOPRAZOLE [id number] Eileen Mathew LPN take 1 capsule by mo [facility] every other day lansoprazole [address] capsule Take 1 capsule by mouth every other day. 0 Active Comment on above: Take 15 mg by mouth once daily. levoFLOXacin 750 mg oral tablet (20 sources) Quinolone Antimicrobial Start: 06-12-2016 LEVAQUIN 500 MG TABS One tab daily LEVOFLOXACIN [id number] Eileen Harrison Start: 06-12-2016 End: 07-30-2016 take 1 tablet by mouth once daily LEVAQUIN 750 MG TABS One tablet by mouth daily LEVOFLOXACIN [id number] Eileen Mathew LPN Start: 06-05-2015 End: 06-24-2015 take 1 tablet by mouth once daily LEVAQUIN, 500MG (Oral Tablet) 1 Tablet daily for 0 days Quantity: 10 {Tablet} Refills: 0 Ordered: 24-Jun-2015 Hiram Castaneda Start : 05-Jun-2015 End : 24-Jun-2015 Inactive meloxicam 15 mg oral tablet (12 sources) Nonsteroidal Anti-inflammatory Drug Start: 02-06-2015 End: 06-24-2015 take 1 tablet by mouth once daily MOBIC, 15MG (Oral Tablet) 1 (one) Tablet Tablet qd for 0 days Quantity: 30 {Tablet} Refills: 0 Ordered: 24-Jun-2015 Hiram Castaneda Start : 06-Feb-2015 End : 24-Jun-2015 Inactive metaxalone 800 mg oral tablet (12 sources) Start: 03-16-2012 End: 07-15-2012 take 1 tablet by mouth three times daily as needed METAXALONE, 800MG (Oral Tablet) 1 Tablet tid prn for 0 days Quantity: 20 {Tablet} Refills: 0 Ordered: 15-Jul-2012 Delphine Ramirez LPN Start : 16-Mar-2012 End : 15-Jul-2012 Inactive methylPREDNISolone 4 mg oral tablet (12 sources) Corticosteroid Start: 06-25-2014 End: 09-04-2014 MEDROL (THALIA), 4MG (Oral Tablet) 1 (one) Tablet TAD for 90 days Quantity: 1 {Package} Refills: 0 Ordered: 04-Sep-2014 Maria Cross LPN Start : 25-Jun-2014 End : 04-Sep-2014 Discontinued 24 hr metoprolol succinate 50 mg extended release oral tablet (20 sources) beta-Adrenergic Taylor Start: 07-20-2018 take 2 tablets by mouth once daily Toprol XL 50 MG Oral Tablet Extended Release 24 Hour 2 (two) Tablet daily for 30 days Quantity: 60 {Tablet} Refills: 2 Ordered: 20-Jul-2018 Ele Astudillo DO, DO, Kathleen Start : 20-Jul-2018 Active Start: 04-28-2018 take 2 tablets by mo [facility] once daily Toprol XL 50 MG Oral Tablet Extended Release 24 Hour 2 (two) Tablet daily for 30 days Quantity: 60 {Tablet} Refills: 2 Ordered: 28-Apr-2018 Omayra Garcia Start : 28-Apr-2018 Active Comments: new dose Start: 11-18-2017 take 1 tablet by jose daniel th once daily Toprol XL 50 MG Oral Tablet Extended Release 24 Hour 1 (one) Tablet daily for 0 days Quantity: 30 {Tablet} Refills: 2 Ordered: 18-Nov-2017 Ele Astudillo DO, DO, Kathleen Start : 18-Nov-2017 Active Comments: new dose take 1 tablet by jose daniel th twice daily metoprolol tartrate, short acting, (LOPRESSOR) 50 mg tablet Take 50 mg by mouth twice daily. Active take 1 tablet by jose daniel th twice daily Metoprolol 25 MG tab regular release Take 1 tablet by mouth 2 times daily. 0 Active Comment on above: new dose Take 50 mg by mouth twice daily. montelukast 10 mg oral tablet (20 sources) Leukotriene Receptor Antagonist Start: 017 End: 023 take 1 tablet by mouth once daily Singulair 10 MG Oral Tablet 1 Tablet daily for 0 days Quantity: 30 {Tablet} Refills: 4 Ordered: 22-Aug-2018 Ele Astudillo DO, DO, Kathleen Start : 22-Aug-2018 Active Comment on above: Take 10 mg by mouth daily at bedtime. moxifloxacin 400 mg oral tablet (12 sources) Quinolone Antimicrobial Start: End: take 1 tablet by mouth once daily AVELOX, 400MG (Oral Tablet) 1 (one) Tablet Daily for 0 days Quantity: 10 {Tablet} Refills: 0 Ordered: 10-Dec-2008 Delphine Ramirez LPN Start : 10-Dec-2008 End : 12-Dec-2008 Inactive Comments: do not exercise while on medicaiton Comment on above: do not exercise whil e on medicaiton naproxen 500 mg oral tablet (12 sources) Nonsteroidal Anti-inflammatory Drug Start: 013 End: 014 take 1 tablet by mouth twice daily NAPROSYN, 500MG (Oral Tablet) 1 (one) Tablet bid for 0 days Quantity: 30 {Tablet} Refills: 3 Ordered: 14-Dec-2013 Delphine Ramirez LPN Start : 16-Mar-2012 End : 14-Dec-2013 Inactive ofloxacin 3 mg/ml ophthalmic solution (12 sources) Quinolone Antimicrobial Start: 017 End: 018 Ocuflox 0.3 % Ophthalmic Solution 1-2 Metric Drop Q 2-4 hours x 2 days, then 1-2 gtts QID x 5 days for 0 days Quantity: 1 {Bottle} Refills: 0 Ordered: 15-Sep-2017 Sheri Gonzáles LPN Start : 12-Oct-2016 End : 15-Sep-2017 Inactive phentermine hydrochloride 37.5 mg oral tablet (12 sources) Sympathomimetic Amine Anorectic Start: 014 End: 015 take 1 tablet by mouth once daily ADIPEX-P, 37.5MG (Oral Tablet) 1 Tablet qd for 0 days Quantity: 30 {Tablet} Refills: 0 Ordered: 04-Sep-2014 Maria Cross LPN Start : 14-Dec-2013 End : 04-Sep-2014 Discontinued Comments: bmi 36. 6-12-13 wt 220 amiowlcg2-4-42 wt 200.1 bmi 33.40bdrqcs3-87-55 wt 219 bmi 369-18-14 wt 211 bmi 204 bmi 33 Comment on above: bmi 36. 6-12-13 wt 2 20 anjuxkiw0-3-33 wt 200.1 bmi 33.41ttgdji2-97-77 wt 219 bmi 369-18-14 wt 211 bmi 204 bmi 33 rizatriptan 10 mg disintegrating oral tablet (20 sources) Serotonin-1b and Serotonin-1d Receptor Agonist Start: 019 Maxalt-TUBING ASSEMBLER 10 MG Oral Tablet Disintegrating 1 Tablet Disperse at onset of knowles for 0 days Quantity: 12 {Tablet} Refills: 0 Ordered: 29-Aug-2018 Ele Astudillo DO, DO, Kathleen Start : 29-Aug-2018 Active Start: 06-09-2018 Maxalt-TUBING ASSEMBLER 10 MG Oral Tablet Disintegrating 1 Tablet Disperse at onset of knowles for 0 days Quantity: 12 {Tablet} Refills: 0 Ordered: 09-Jun-2018 Ele Astudillo DO, DO, Kathleen Start : 09-Jun-2018 Active Start: 02-24-2018 Maxalt-TUBING ASSEMBLER 10 MG Oral Tablet Disintegrating 1 Tablet Disperse at onset of knowles for 0 days Quantity: 12 {Tablet} Refills: 0 Ordered: 24-Feb-2018 Ele Astudillo DO, DO, Kathleen Start : 24-Feb-2018 Active Start: 06-24-2017 Maxalt-TUBING ASSEMBLER 10 MG Oral Tablet Disintegrating 1 Tablet Disperse at onset of knowles for 0 days Quantity: 12 {Tablet} Refills: 0 Ordered: 24-Jun-2017 Ele Astudillo DO, DO, Kathleen Start : 24-Jun-2017 Active Start: 06-29-2016 take 1 tablet by jose daniel th once daily as needed MAXALT 10 MG TABS One tablet by mouth daily as needed RIZATRIPTAN BENZOATE [id number] Eileen Mathew LPN roflumilast 0.5 mg oral tablet (12 sources) Phosphodiesterase 4 Inhibitor Start: 02-17-2012 End: 12-14-2013 take 1 tablet by mouth once daily DALIRESP, 500MCG (Oral Tablet) 1 Tablet qd for 0 days Quantity: 45 {Tablet} Refills: 0 Ordered: 14-Dec-2013 Delphine Ramirez LPN Start : 17-Feb-2012 End : 14-Dec-2013 Inactive suvorexant 15 mg oral tablet (12 sources) Orexin Receptor Antagonist Start: 06-01-2016 End: 06-03-2016 take 1 tablet by mouth once daily at bedtime Belsomra 15 MG Oral Tablet 1 (one) Tablet qhs for 0 days Quantity: 30 {Tablet} Refills: 0 Ordered: 03-Jun-2016 Delphine Ramirez LPN Start : 01-Jun-2016 End : 03-Jun-2016 Inactive Comments: thirty Comment on above: thirty levothyroxine sodium 0.025 mg oral tablet (20 sources) l-Thyroxine Start: 06-10-2016 take 1 tablet by mouth once daily Synthroid 25 MCG Oral Tablet 1 Tablet qd for 0 days Quantity: 30 {Tablet} Refills: 8 Ordered: 31-Jan-2018 Ele Astudillo DO, DO, Kathleen Start : 31-Jan-2018 Active Comments: generic ok Start: 06-10-2016 SYNTHROID 25 M CG TABS One tab daily LEVOTHYROXINE SODIUM [id number] Eileen Harrison Comment on above: generic ok Take 25 mcg by mouth daily before breakfast. tiotropium 0.018 mg inhalant powder (13 sources) Anticholinergic Start: 02-17-20 12 End: 02-17-20 12 take 1 capsule by inhalation once daily SPIRIVA HANDIHALER, 18MCG (Inhalation Capsule) 1 puff Capsule daily for 0 days Quantity: 30 {Capsule} Refills: 2 Ordered: 17-Feb-2012 Ele Astudillo DO, DO, Kathleen Start : 17-Feb-2012 End : 17-Feb-2012 Discontinued End: 04-22-2022 take 2 puff(s) by inhalation once daily tiotropium 2.5 MCG/ACT Aero Soln inhaler Inhale 2 puffs daily. 0 04/22/2022 Discontinued traMADol hydrochloride 50 mg oral tablet (12 sources) Opioid Agonist Start: 02-06-2015 End: 06-24-2015 take 1 tablet by mouth once daily as needed ULTRAM, 50MG (Oral Tablet) 1 (one) Tablet Tablet qd prn for 0 days Quantity: 30 {Tablet} Refills: 0 Ordered: 24-Jun-2015 Hiram Castaneda Start : 06-Feb-2015 End : 24-Jun-2015 Inactive Comments: thirty Comment on above: thirty traZODone hydrochloride 100 mg oral tablet (12 sources) Serotonin Reuptake Inhibitor Start: 08-12-2017 End: 08-08-2018 take 1-2 tablets by mouth once daily at bedtime traZODone HCl 100 MG Oral Tablet 1-2 Tablet Tablet qhs for 0 days Quantity: 60 {Tablet} Refills: 2 Ordered: 08-Aug-2018 Omayra Garcia Start : 12-Aug-2017 End : 08-Aug-2018 Inactive triamcinolone (12 sources) Corticosteroid Start: 06-30-2007 End: 2007 NASACORT AQ, 55MCG/ACT (Nasal Aerosol Solution) for 0 days Refills: 0 Ordered: 30-Jun-2007 Delphine Ramirez LPN Start : 30-Jun-2007 End : 25-Nov-2007 Inactive varenicline 0.5 mg oral tablet (12 sources) Partial Cholinergic Nicotinic Agonist Start: 04-26-2008 End: 08-09-2008 take 0.5 mg by mouth once daily, then take 1 mg by mouth CHANTIX STARTING MONTH THALIA, 0.5 MG X 11 &1 MG X 42 (Oral Miscellaneous) tad Misc Twice daily for 0 days Quantity: 1 {Misc} Refills: 1 Ordered: 26-Apr-2008 Dyan Ann Start : 26-Apr-2008 End : 09-Aug-2008 Discontinued Comments: needs to cont pack Comment on above: needs to cont pack 24 hr venlafaxine 75 mg extended release oral capsule (20 sources) Serotonin and Norepinephrine Reuptake Inhibitor Start: 03-27-2010 End: 08-22-2010 take 1 capsule by mouth once daily EFFEXOR XR, 75MG (Oral Capsule Extended Release 24 Hour) one Capsule ER 24HR qd for 0 days Quantity: 30 {Capsule_ER_24HR} Refills: 3 Ordered: 22-Aug-2010 Sheri Gonzáles LPN Start : 27-Mar-2010 End : 22-Aug-2010 Inactive Start: 04-29-2007 take 1 tablet by jose daniel th once daily EFFEXOR, 75MG (Oral Tablet) 1 Tablet Daily for 0 days Quantity: 30 {Tablet} Refills: 6 Ordered: 29-Apr-2007 Maria Cross LPN Start : 29-Apr-2007 Inactive zolpidem tartrate 10 mg oral tablet (20 sources) gamma-Aminobutyric Acid-ergic Agonist Start: 08-08-2018 End: 09-07-2018 take 1 tablet by mouth once daily at bedtime as needed Zolpidem Tartrate 10 MG Oral Tablet 1 (one) Tablet qhs/prn for 30 days Quantity: 30 {Tablet} Refills: 0 Ordered: 08-Aug-2018 Ele Astudillo DO, DO, Kathleen Start : 08-Aug-2018 End : 07-Sep-2018 Inactive Comments: ainsley G47.00 Start: 06-24-2018 take 1 tablet by jose daniel th once daily at bedtime as needed Zolpidem Tartrate 10 MG Oral Tablet 1 (one) Tablet qhs/prn for 30 days Quantity: 30 {Tablet} Refills: 0 Ordered: 24-Jun-2018 Ele Astudillo DO, DO, Kathleen Start : 24-Jun-2018 Active Comments: ainsley G47.00 Start: 04-28-2018 End: 05-28-2018 take 1 tablet by mouth once daily at bedtime as needed Zolpidem Tartrate 10 MG Oral Tablet 1 (one) Tablet qhs/prn for 30 days Quantity: 30 {Tablet} Refills: 0 Ordered: 28-Apr-2018 Omayra Garcia Start : 28-Apr-2018 End : 28-May-2018 Inactive Comments: thirty G47.00 Start: 07-08-2017 End: 09-15-2017 take 1 tablet by mouth once daily at bedtime as needed Zolpidem Tartrate 10 MG Oral Tablet 1 (one) Tablet qhs/prn for 0 days Quantity: 30 {Tablet} Refills: 0 Ordered: 15-Sep-2017 Sheri Gonzáles LPN Start : 08-Jul-2017 End : 15-Sep-2017 Inactive Start: 06-10-2016 AMBIEN 10 MG T ABS One tab every night ZOLPIDEM TARTRATE [id number] Eileen Storey Hunter Start: 02-06-2015 End: 02-25-2015 take 1 tablet by mouth once daily at bedtime ZOLPIDEM TARTRATE ER, 12.5MG (Oral Tablet Extended Release) 1 (one) Tablet ER qhs for 0 days Quantity: 30 {Tablet} Refills: 0 Ordered: 25-Feb-2015 James Delphine JESE Start : 06-Feb-2015 End : 25-Feb-2015 Inactive Comments: thirty take 1 tablet by jose daniel th at bedtime as needed for sleep Zolpidem 5 MG tablet Take 1 tablet by mouth At bedtime as needed for Sleep. 0 Active Comment on above: thirty thirty G47.00 Problems Active Problems Problem Classification Problem Date Documented Date Episodic/Chronic Abdominal pain (12 sources) Acute abdominal pain; Translations: [Abdominal pain, acute, right upper quadrant] 08-12-2017 Episodic Acute bronchitis (20 sources) Acute bronchitis; Translations: [Acute bronchitis due to other specified organisms] 08-12-2017 Episodic Administrative/social admission (12 sources) Pneumococcal vaccination given; Translations: [Pneumococcal vaccination given] 08-12-2017 Episodic Asthma (20 sources) Asthma; Translations: [Acute exacerbation of asthma] Onset: 2 Resolved: 9 06-29-2016 Chronic Comment on above: sees Dr Maynard Asthma (20 sources) Asthma Cancer of bronchus; lung (5 sources) Malignant neoplasm of lower lobe of left lung; Translations: [Malignant neoplasm of lower lobe, left bronchus or lung] Onset: 3 Chronic Cardiac dysrhythmias (20 sources) Tachycardia; Translations: [Palpitations] 10-12-2016 Episodic Comment on above: Blood pressure readi ngs range from 155/84- 111/72. HR range from 96-65. Chronic obstructive pulmonary disease and bronchiectasis (20 sources) Chronic obstructive lung disease; Translations: [Acute exacerbation of chronic obstructive airways disease] Onset: 7 07-30-2016 Chronic Comment on above: in pulm rehabscreen for alpha-1- antitrypsin 6/ees Dr Maynard Chronic obstructive pulmonary disease and bronchiectasis (12 sources) Bronchitis; Translations: [Bronchitis] 08-12-2017 Episodic Chronic obstructive pulmonary disease and bronchiectasis (20 sources) Chronic obstructive pulmonary disease and bronchiectasis Coronary atherosclerosis and other heart disease (20 sources) Coronary atherosclerosis and other heart disease Diabetes mellitus with complications (11 sources) Type II diabetes mellitus uncontrolled; Translations: [Diabetes mellitus type 2, uncontrolled, without complications] 08-12-2017 Chronic Diabetes mellitus with complications (20 sources) Diabetes mellitus with complications Diabetes mellitus without complication (15 sources) Type 2 diabetes mellitus; Translations: [Type 2 diabetes mellitus without complication] Onset: 3 04-28-2018 Chronic Comment on above: new dx 04/19- educati on done end organ and diet and lifestyle Diabetes mellitus without complication (20 sources) Abnormal glucose tolerance test; Translations: [Hyperglycemia] 08-12-2017 Episodic Comment on above: worsening and progre ssed to diabetes -- no meds yet rev and remided of end organ damage and need fjor sugar control to not have mi cva or from related organ damage -- including nerve adn ability to feel, vascular problems and amputation etc pt will do lifestyle chg nad exrecise -- no medicatrions at this time per patient -extensive counseling done on lifestyule chg required Diabetes mellitus without complication (20 sources) Diabetes mellitus without complication Diseases of white blood cells (12 sources) Leukocytosis; Translations: [Leukocytosis, unspecified type] 08-12-2017 Chronic Comment on above: most likely from [facility] riods Disorders of lipid metabolism (12 sources) Hypertriglyceridemia; Translations: [Hyperglyceridemia] 08-12-2017 Chronic Esophageal disorders (20 sources) Gastroesophageal reflux disease; Translations: [GERD (gastroesophageal reflux disease)] 08-12-2017 Chronic Comment on above: cont otc med for now Essential hypertension (20 sources) Hypertensive disorder; Translations: [Benign hypertension] Onset: 7 09-09-2016 Chronic Comment on above: uncontrolled --pt re alized she is only on one rx for bp adn tinks she was suppposed to take 2rx Headache, including migraine (12 sources) Migraine with aura; Translations: [Migraine with aura and without status migrainosus, not intractable] 08-12-2017 Chronic Headache, including migraine (20 sources) Headache; Translations: [Headache] Resolved: 3 12-04-2014 Episodic Headache, including migraine (20 sources) Headache, including migraine Immunizations and screening for infectious disease (20 sources) Need for prophylactic vaccination and inoculation against influenza; Translations: [Pneumococcal vaccination given] Onset: 5 08-08-2018 Episodic Inflammation, infection of eye (20 sources) Conjunctivitis; Translations: [Acute conjunctivitis] Resolved: 1 08-12-2017 Episodic Malaise and fatigue (20 sources) Fatigue; Translations: [Other fatigue] Onset: 7 06-29-2016 Episodic Menopausal disorders (12 sources) Menopausal flushing; Translations: [Hot flashes] 08-12-2017 Chronic Mood disorders (12 sources) Depressive disorder; Translations: [Depression, unspecified depression type] 08-12-2017 Chronic Nonspecific chest pain (20 sources) Tight chest; Translations: [Chest pain] Resolved: 7 10-12-2016 Episodic Comment on above: with this and sob th at never went away and tightness that returned as soon as i decreased my pred slightly -- i think other etiolgies need to be eval --like PE -- pt has no obvious risks -- no h/o surgeries , hrt, no h/o of recent travel -- is overwt Nutritional deficiencies (20 sources) Vitamin D deficiency; Translations: [Vitamin D deficiency] 08-12-2017 Chronic Osteoarthritis (1 source) Unilateral primary osteoarthritis, right knee; Translations: [Unilateral primary osteoarthritis, right knee] Onset: 5 Chronic Other circulatory disease (11 sources) Easy bruising; Translations: [Easy bruisability] 08-12-2017 Episodic Other circulatory disease (12 sources) Elevated blood pressure; Translations: [Elevated blood pressure reading] 01-12-2018 Episodic Comment on above: wt gain , getting te sted for isidro --- bp is nnew elevation Other circulatory disease (3 sources) Elevated blood-pressure reading, without diagnosis of hypertension; Translations: [Elevated blood pressure] 08-12-2017 Episodic Other circulatory disease (1 source) Wheeze - rhonchi; Translations: [Other specified symptoms and signs involving the circulatory and respiratory systems] 12-03-2022 Episodic Other connective tissue disease (1 source) Presence of right artificial knee joint; Translations: [Presence of right artificial knee joint] Onset: Chronic Other connective tissue disease (20 sources) Foot pain; Translations: [Foot pain] 11-15-2017 Episodic Other connective tissue disease (6 sources) Pain in right foot; Translations: [Right foot pain] 11-09-2017 Episodic Comment on above: No known injury-?fra cture vs cellulitis-will give antibiotic to take if xray is negative for fractur Other connective tissue disease (12 sources) Pain in upper limb; Translations: [Upper extremity pain, anterior, unspecified laterality] 08-12-2017 Episodic Comment on above: pos impingement sign -- Other connective tissue disease (12 sources) Pain in thumb ; Translations: [THUMB PAIN] 06-10-2016 Episodic Comment on above: think OA. tried nsai ds, try capscian, dorita inject. not help as much last time want to try again not help then to OA wuill do hand xray Other connective tissue disease (12 sources) Muscle spasm of cervical muscle of neck; Translations: [Neck muscle spasm] 08-12-2017 Episodic Other endocrine disorders (12 sources) Disorder of endocrine system; Translations: [Hormone imbalance] 08-12-2017 Episodic Other eye disorders (1 source) Other specified disorders of eye and adnexa; Translations: [Redness of eye, left] 08-12-2017 Episodic Other female genital disorders (12 sources) Premenstrual tension syndromes Chronic Other female genital disorders (12 sources) Premenstrual tension syndrome; Translations: [Premenstrual tension syndrome] 08-12-2017 Chronic Other injuries and conditions due to external causes (20 sources) Hypoxia; Translations: [Hypoxemia] Onset: 7 06-29-2016 Episodic Comment on above: with activity-- sees Dr Maynard Other lower respiratory disease (20 sources) Cough; Translations: [Dyspnea] Onset: 7 Resolved: 7 08-12-2016 Episodic Comment on above: d/c lisinopril/hctz- -- started benicar but cough hasnt stopped yet -- its been 2weeksif doesnt take away cough by stopping the ARB -- will need to consider other etioligies - already saw ENT Other lower respiratory disease (20 sources) Dyspnea; Translations: [Shortness of breath] Onset: 7 09-15-2017 Episodic Other lower respiratory disease (12 sources) Dyspnea on exertion; Translations: [SOB (shortness of breath) on exertion] 08-12-2017 Episodic Other non-traumatic joint disorders (12 sources) Hand joint pain; Translations: [Arthritis pain, hand] 08-12-2017 Episodic Other non-traumatic joint disorders (12 sources) Knee pain; Translations: [Knee pain, bilateral] 08-12-2017 Episodic Other nutritional; endocrine; and metabolic disorders (12 sources) Cholesterol level - finding; Translations: [Low HDL (under 40)] 08-12-2017 Chronic Other nutritional; endocrine; and metabolic disorders (20 sources) Body mass index 30+ - obesity; Translations: [BMI 39.0-39.9,adult] Resolved: 8 09-15-2017 Chronic Other nutritional; endocrine; and metabolic disorders (11 sources) Body mass index 40+ - severely obese; Translations: [BMI 40.0-44.9, adult] 05-26-2018 Chronic Other nutritional; endocrine; and metabolic disorders (12 sources) Weight gain; Translations: [Weight gain] 08-12-2017 Episodic Other upper respiratory disease (20 sources) Allergic rhinitis; Translations: [Allergic rhinitis, unspecified] Onset: Resolved: 9 07-30-2016 Chronic Other upper respiratory disease (12 sources) Allergic rhinitis due to other allergen Chronic Other upper respiratory disease (12 sources) Harsh voice quality; Translations: [Quality of voice, hoarse] 08-12-2017 Episodic Other upper respiratory infections (1 source) Chronic sinusitis; Translations: [Chronic sinusitis, unspecified] 12-03-2022 Chronic Other upper respiratory infections (20 sources) Acute sinusitis; Translations: [Acute pharyngitis] Resolved: 1 12-04-2014 Episodic Pneumonia (12 sources) Pneumonia Pneumonia (except that caused by tuberculosis or sexually transmitted disease) (2 sources) Community acquired pneumonia; Translations: [Pneumonia, unspecified organism] Onset: 5 Episodic Residual codes; unclassified (2 sources) Obstructive sleep apnea (adult) (pediatric); Translations: [Obstructive sleep apnea (adult) (pediatric)] Onset: 5 Chronic Residual codes; unclassified (11 sources) Needs influenza immunization; Translations: [Need for prophylactic vaccination and inoculation against influenza] 06-10-2016 Episodic Residual codes; unclassified (1 source) Bruises easily; Translations: [Easy bruisability] 08-08-2018 Episodic Respiratory failure; insufficiency; arrest (adult) (1 source) Chronic respiratory failure with hypoxia; Translations: [Chronic respiratory failure with hypoxia] Onset: 5 Chronic Rheumatoid arthritis and related disease (1 source) Inflammatory polyarthropathy; Translations: [Inflammatory polyarthropathy] Onset: 5 Chronic Skin and subcutaneous tissue infections (1 source) Cellulitis of right upper limb; Translations: [Cellulitis of right upper limb] 10-19-2023 Episodic Spondylosis; intervertebral disc disorders; other back problems (12 sources) Degeneration of intervertebral disc; Translations: [Degenerative disc disease] 08-12-2017 Chronic Spondylosis; intervertebral disc disorders; other back problems (20 sources) Neck pain; Translations: [Disorders of sacrum] Resolved: 7 06-05-2016 Episodic Thyroid disorders (20 sources) Hypothyroidism; Translations: [Hypothyroidism, unspecified] Onset: 2 08-12-2017 Chronic Unclassified (20 sources) Persistent disorder of initiating or maintaining sleep; Translations: [Persistent disorder of initiating or maintaining sleep] 08-12-2017 Chronic Unclassified (20 sources) Blood chemistry abnormal; Translations: [Other specified abnormal findings of blood chemistry] 06-10-2016 Episodic Comment on above: pos [place] Unclassified (20 sources) Insomnia; Translations: [Needs influenza immunization] Resolved: 08-12-2017 Episodic Unclassified (20 sources) Unclassified (20 sources) Current non-smoker ; Translations: [Current non-smoker] 09-15-2017 Unclassified (20 sources) Weight gain (783.1) Unclassified (20 sources) BMI 36.0-36.9, ADULT (V85.36) Unclassified (20 sources) Easy bruisability Unclassified (20 sources) BMI 38.0-38.9,adult Unclassified (20 sources) Hypertriglycerides (272.1) Unclassified (20 sources) Nonsmoker; Translations: [Non-smoker] 11-09-2017 Unclassified (20 sources) Tobacco abuse (305.1) Unclassified (20 sources) Elevated blood pressure reading Unclassified (20 sources) HTN (hypertension), benign Unclassified (20 sources) Insomnia, unspecified type Unclassified (20 sources) Abnormal lung sounds Unclassified (12 sources) Elevated blood pressure Unclassified (12 sources) Degenerative Disc Disease (722.6) Unclassified (11 sources) Premenstrual Syndrome Unclassified (20 sources) BMI 40.0-44.9, adult Unclassified (20 sources) Heart palpitations Past or Other Problems Problem Classification Problem [...] [Abnormal chest sounds] Resolved: 06-24-2015 06-01-2016 Episodic Comment on above: but still tight Other connective tissue disease (12 sources) Pain in left arm; Translations: [Arm pain, left] Resolved: 06-12-2015 06-01-2016 Episodic Other connective tissue disease (7 sources) Other specified soft tissue disorders; Translations: [Swelling of right foot] Onset: 04-26-2024 11-09-2017 Episodic Other connective tissue disease (12 sources) Pain in forearm; Translations: [Pain in forearm, unspecified laterality] Onset: 06-27-2010 Resolved: 07-15-2012 01-18-2015 Episodic Comment on above: right tender elbow Other connective tissue disease (6 sources) Swelling of right foot; Translations: [Swelling of right foot] 08-08-2018 Other connective tissue disease (6 sources) Pain in right foot; Translations: [Right foot pain] 08-08-2018 Comment on above: No known injury-?fra cture vs cellulitis-will give antibiotic to take if xray is negative for fractur Other lower respiratory disease (12 sources) Dyspnea at rest; Translations: [Shortness of breath at rest] Resolved: 10-12-2016 10-12-2016 Episodic Other lower respiratory disease (1 source) Dyspnea, unspecified; Translations: [Dyspnea, unspecified] Onset: 07-25-2024 Episodic Other nervous system disorders (12 sources) Lesion of sciatic nerve; Translations: [Sciatic pain] Resolved: 08-24-2012 08-24-2012 Chronic Other upper respiratory disease (9 sources) Posterior rhinorrhea; Translations: [Postnasal drip] Onset: 07-30-2016 07-30-2016 Episodic Phlebitis; thrombophlebitis and thromboembolism (2 sources) Acute embolism and thrombosis of unspecified deep veins of unspecified lower extremity; Translations: [Acute embolism and thrombosis of unspecified deep veins of unspecified lower extremity] Onset: 05-30-2024 Episodic Poisoning by other medications and drugs (12 sources) Adverse reaction to drug; Translations: [Adverse reaction to drug, initial encounter] Resolved: 10-05-2016 10-05-2016 Episodic Unclassified (12 sources) Tobacco user; Translations: [Tobacco abuse] Resolved: 11-11-2012 06-01-2016 Chronic Comment on above: qiut in 2009 Unclassified (20 sources) BMI 37.0-37.9, adult Unclassified (12 sources) Redness of eye, left Unclassified (12 sources) Abnormal blood chemistry (790.6) Unclassified (20 sources) Elevated heart rate with elevated blood pressure and diagnosis of hypertension Unclassified (20 sources) BMI 36.0-36.9,adult Unclassified (20 sources) BMI 39.0-39.9,adult Unclassified (20 sources) Shortness of breath at rest Unclassified (12 sources) Right foot pain Unclassified (12 sources) Quality of voice, hoarse Unclassified (12 sources) Swelling of right foot Unclassified (20 sources) THUMB PAIN (729.5) Unclassified (12 sources) Low HDL (272.5) Unclassified (12 sources) SOB (shortness of breath) on exertion Unclassified (12 sources) Sacro-iliac pain (724.6) Unclassified (12 sources) Sciatic pain (355.0) Unclassified (12 sources) Upper extremity pain, anterior, unspecified laterality Unclassified (20 sources) Forearm Pain (719.43) Unclassified (20 sources) Hormonal Imbalance (259.9) Unclassified (12 sources) Hot Flashes (782.62) Unclassified (12 sources) Abdominal Pain,RUQ(789.01) Unclassified (12 sources) Abnormal TSH (794.5) Unclassified (12 sources) Leukocytosis, unspecified type Unclassified (12 sources) Adverse reaction to drug, initial encounter Unclassified (12 sources) Acute Conjuctivitis (372.01) Unclassified (20 sources) Unspecified Diagnosis 08-12-2017 Unclassified (20 sources) allergy testing Resolved: 09-06-2008 07-15-2012 Unclassified (12 sources) Screening status; Translations: [SCREENING FOR HYPERLIPIDEMIA] 08-12-2017 Unclassified (12 sources) [place] eye Unclassified (13 sources) Premenstrual Syndrome; Translations: [Premenstrual Syndrome] 08-12-2017 Unclassified (20 sources) Arthritis pain, hand Unclassified (12 sources) Cervical pain (neck) Unclassified (12 sources) Neck muscle spasm Unclassified (12 sources) Fall, accidental Unclassified (12 sources) Knee pain, bilateral Unclassified (12 sources) Arm pain, left Unclassified (11 sources) Non-smoker; Translations: [Nonsmoker] 05-26-2018 Unclassified (11 sources) Other specified disorders of eye and adnexa; Translations: [Red left eye] 04-28-2018 Results Test Name Value Interpretation Reference Range Facility CBC W/Diff, Automatedon 10-31 Absolute Lymph 0.83 X10 3/uL Normal 0.83-4.51 [facility] Comment on above: Performed By: #### L 100.0100, L500.4050 #### [facility] [place], [address] Absolute Neut 5.0 X10 3/uL Normal 2.0-7.7 [facility] Comment on above: Performed By: #### L 100.0100, L500.4050 #### [facility] [address] [place], [address] Basophils/100 WBC (Bld) 0.3 % Normal 0-1 [facility] Comment on above: Performed By: #### L 100.0100, L500.4050 #### [facility] [address] [place], [address] Eosinophils/100 WBC (Bld) 0.0 % Normal 0-5 [facility] Comment on above: Performed By: #### L 100.0100, L500.4050 #### [facility] [address] [place], [address] Erythrocyte distribution width (RBC) [Ratio] 15.7 % High 11.6-14.6 [facility] Comment on above: Performed By: #### L 100.0100, L500.4050 #### [facility] [address] [place], [address] Hematocrit (Bld) [Volume fraction] 38.8 % Normal 37-47 [facility] Comment on above: Performed By: #### L 100.0100, L500.4050 #### [facility] [address] [place], [address] Hemoglobin (Bld) [Mass/Vol] 12.4 g/dL Normal 12.0-15.0 [facility] Comment on above: Performed By: #### L 100.0100, L500.4050 #### [facility] [address] [place], [address] IG% 0.900 Normal 0.0-0.9 [facility] Comment on above: Result Comment: IG% - Immature Granulocytes (promyelocytes, myelocytes and metamyelocytes) > 1% indicates that a LEFT SHIFT is Present. Performed By: #### L 100.0100, L500.4050 #### [facility] [address] [place], [address] Lymphocytes/100 WBC (Bld) 13.0 % Low 19-41 [facility] Comment on above: Performed By: #### L 100.0100, L500.4050 #### [facility] [address] [place], [address] MCH (RBC) [Entitic mass] 29.4 pg Normal 27.0-32.0 [facility] Comment on above: Performed By: #### L 100.0100, L500.4050 #### [facility] [address] [place], [address] MCHC (RBC) [Mass/Vol] 32.0 g/dL Normal 32-36 [facility] Comment on above: Performed By: #### L 100.0100, L500.4050 #### [facility] [address] [place], [address] MCV (RBC) [Entitic vol] 91.9 fL Normal 81-99 [facility] Comment on above: Performed By: #### L 100.0100, L500.4050 #### [facility] [address] [place], [address] Monocytes/100 WBC (Bld) 7.2 % Normal 0-10 [facility] Comment on above: Performed By: #### L 100.0100, L500.4050 #### [facility] [address] [place], [address] Neutrophils/100 WBC (Bld) 78.6 % High 47-70 [facility] Comment on above: Performed By: #### L 100.0100, L500.4050 #### [facility] [address] [place], [address] Nucleated RBC (Bld) [#/Vol] 0 10*3/uL Normal 0-5 [facility] Comment on above: Performed By: #### L 100.0100, L500.4050 #### [facility] [address] [place], [address] Platelet mean volume (Bld) [Entitic vol] 11.4 fL Normal 6.2-12.0 [facility] Comment on above: Performed By: #### L 100.0100, L500.4050 #### [facility] [address] [place], [address] Platelets (Bld) [#/Vol] 216 10*3/uL Normal 150-450 [facility] Comment on above: Performed By: #### L 100.0100, L500.4050 #### [facility] [address] [place], [address] RBC (Bld) [#/Vol] 4.22 10*6/uL Normal 4.2-5.4 [facility] Comment on above: Performed By: #### L 100.0100, L500.4050 #### [facility] [address] [place], [address] RDW SD 52.9 fl High 35.1-43.9 [facility] Comment on above: Performed By: #### L 100.0100, L500.4050 #### [facility] [address] [place], [address] WBC (Bld) [#/Vol] 6.4 10*3/uL Normal 4.4-11.0 [facility] Comment on above: Performed By: #### L 100.0100, L500.4050 #### [facility] [address] [place], [address] Comprehensive Metabolic Prof ilon 11-27-2024 Albumin [Mass/Vol] 3.7 g/dL Normal 3.4-4.8 [facility] Comment on above: Performed By: #### L 100.0100, L500.4050 #### [facility] [address] [place], [address] Albumin/Globulin [Mass ratio] 1.2 {ratio} Normal 0.9-2.4 [facility] Comment on above: Performed By: #### L 100.0100, L500.4050 #### [facility] [address] [place], [address] ALK PHOS 72 U/L Normal 35-104 [facility] Comment on above: Performed By: #### L 100.0100, L500.4050 #### [facility] [address] [place], [address] ALT [Catalytic activity/Vol] 19 U/L Normal <=34 [facility] Comment on above: Performed By: #### L 100.0100, L500.4050 #### [facility] [address] [place], [address] AST [Catalytic activity/Vol] 25 U/L Normal <=31 [facility] Comment on above: Performed By: #### L 100.0100, L500.4050 #### [facility] [address] [place], [address] Bilirubin [Mass/Vol] 0.40 mg/dL Normal 0.00-1.30 [facility] Comment on above: Performed By: #### L 100.0100, L500.4050 #### [facility] [address] [place], [address] BUN/CRE 9.7 RATIO Low 10-20 [facility] Comment on above: Performed By: #### L 100.0100, L500.4050 #### [facility] [address] [place], [address] Calcium [Mass/Vol] 9.3 mg/dL Normal 7.6-11.0 [facility] Comment on above: Performed By: #### L 100.0100, L500.4050 #### [facility] [address] [place], [address] Chloride [Moles/Vol] 103 mmol/L Normal 98-108 [facility] Comment on above: Performed By: #### L 100.0100, L500.4050 #### [facility] [address] [place], [address] CO2 [Moles/Vol] 25.8 mmol/L Normal 21.0-32.0 [facility] Comment on above: Performed By: #### L 100.0100, L500.4050 #### [facility] [address] [place], [address] Creatinine [Mass/Vol] 0.76 mg/dL Normal 0.70-1.20 [facility] Comment on above: Performed By: #### L 100.0100, L500.4050 #### [facility] [address] [place], [address] GAP 11 Normal 5-15 [facility] Comment on above: Performed By: #### L 100.0100, L500.4050 #### [facility] [address] [place], [address] GFR/1.73 sq M.predicted among non-blacks MDRD (S/P/Bld) [Vol rate/Area] 83 mL/min/{1.73_m2} Normal >60 [facility] Comment on above: Result Comment: mL/m in/1.73m2 CKD-EPI Creatinine Equation (2020) Performed By: #### L 100.0100, L500.4050 #### [facility] [address] [place], [address] Globulin (S) [Mass/Vol] 3.0 g/dL Normal 2.2-4.2 [facility] Comment on above: Performed By: #### L 100.0100, L500.4050 #### [facility] [address] [place], [address] Glucose [Mass/Vol] 139 mg/dL High 70-99 [facility] Comment on above: Performed By: #### L 100.0100, L500.4050 #### [facility] [address] [place], [address] Potassium [Moles/Vol] 4.2 mmol/L Normal 3.3-5.1 [facility] Comment on above: Performed By: #### L 100.0100, L500.4050 #### [facility] [address] [place], [address] Sodium [Moles/Vol] 140 mmol/L Normal 133-145 [facility] Comment on above: Performed By: #### L 100.0100, L500.4050 #### [facility] [address] [place], [address] T PROT 6.7 g/dL Normal 5.9-8.4 [facility] Comment on above: Performed By: #### L 100.0100, L500.4050 #### [facility] [address] [place], [address] Urea nitrogen [Mass/Vol] 7 mg/dL Normal 4-19 [facility] Comment on above: Performed By: #### L 100.0100, L500.4050 #### [facility] [address] [place], [address] Pulmonary Visit Reporton Pulmonary Visit Report [facility] [address] [place] [address] OFFICE VISIT Date of Service: 11/23/24 MR#: [id number] Acct: [id number] Name: TEAGAN VAUGHAN Rep #: [id number] : 1950 Provider: INDIRA Butts Age/Sex: 73/F Location: [facility] [place].PMW Status: Signed Assessment and Plan Assessment and Plan (1) Asthma-COPD overlap syndrome: Status: Chronic Comment: FEV1 46% of predicted Plan: Deteriorated. I am placing the patient on Flonase to try to control the postnasal drip and nasal drainage. I anticipate that controlling this drainage will help to control the cough. I do not think that antibiotics or prednisone are indicated. Continue all other maintenance medications. Follow-up in 6 weeks. No additional testing today. She was provided with her annual influenza vaccination today. (2) ISIDRO (obstructive sleep apnea): Status: Chronic Plan: She is now using and benefiting from PAP therapy. No indication for titration study. Follow-up in 6 weeks. (3) Malignant neoplasm of lower lobe, left bronchus or lung: Status: Chronic Plan: Complicates exam, plan, care and prognosis. Serial imaging currently being managed by radiation oncology. (4) Chronic respiratory failure with hypoxia: Status: Chronic Comment: 2 L with exertion Plan: She is using and benefiting from supplemental oxygen. Continue to titrate as needed to maintain saturations 89 to 92%. No additional testing at this time. (5) Obesity: Status: Chronic Qualifiers: Body mass index: BMI 40.0-44.9 Obesity classification: adult class 3 (BMI >= 40) Obesity type: due to excess calories Serious obesity comorbidity presence: with serious comorbidity Qualified Code(s): E66.813 - Obesity, class 3; Z68.41 - Body mass index [BMI] 40.0-44.9, adult Plan: Complicates exam, plan, care and prognosis. Encourage healthy weight loss. (6) Bronchiectasis: Status: Acute Qualifiers: Bronchiectasis type: uncomplicated Qualified Code(s): J47.9 - Bronchiectasis, uncomplicated Plan: CT of the chest completed on September 18, 2024 personally reviewed. Imaging indicates bronchiectasis in bilateral lower lobes. I explained the pathophysiology of bronchiectasis to the patient. She currently has a PAP device at home from recent hospitalization. I have encouraged her to utilize it 10 puffs 3 times daily. She conveys understanding and is agreeable with this plan. Orders: Orders Influenza Immunization Today Z23 - Encounter for immunization Medications: New fluticasone propionate 50 mcg/actuation 2 sprays intranasal DAILY 16 grams 3RF J45.909 - Unspecified asthma, uncomplicated guaifenesin ER 1,200 mg PO Q12H 60 tabs 6RF Plan Details Additional Comments: This note was generated with Swift Navigation dictation software. It may contain incorrect words, spelling, and punctuation that were not noted in checking the note before signing. Follow Up: 6 Weeks HPI 6 M FU Chief Complaint: Cough HPI Comments Details: This very pleasant 73-year-old female presents to the office today for follow-up of her asthma/COPD overlap syndrome complicated by obstructive sleep apnea and non-small cell lung cancer. She is ambulatory and on supplemental oxygen. She has not recently been seen in the ED or urgent care for any respiratory illness. Within the past month her primary care doctor placed her on Levaquin for 5 days for the cough. After completion of the Levaquin symptoms persisted. She was then placed on a high dose prednisone taper. Unfortunately, symptoms did not improve while on either of these medications or following the completion of them. She is compliant with the use of Symbicort 2 puffs twice daily and Spiriva daily. She does report rinsing her mouth out after each use. She denies any medication side effect such as sore throat or thrush. She is also compliant with Singulair daily and Xolair monthly. She uses her albuterol 4-5 times daily. She tried using Claritin daily for the runny nose, however it was not effective. She has shortness of breath on exertion. She has a a cough that is productive of clear sputum. She is reporting clear nasal drainage. She denies any wheezing, chest tightness, chest pain or palpitations. She also denies any fever, chills or body aches. She quit smoking over 15 years ago. She is currently using 3 L/min of supplemental oxygen. She was not able to utilize her PAP machine for a few weeks. This occurred because she only has 1 outlet in her bedroom and she was recovering from a knee replacement. She had to utilize an ice machine for her knee. Therefore she did not have a plug-in for the PAP machine. However, she typically feels wakes up feeling rested and refreshed. She is not having difficulty with dry mouth. She has recently been napping 1 hour daily. She is not having morning heada (more content not included)... Normal [facility] Chest PA and Lateralon 11-03 Chest PA and Lateral [facility] Imaging Services [address] [place] [address] Chest PA and Lateral MR#: [id number] Acct: [id number] Name: TEAGAN VAUGHAN Rep #: [id number] : 1950 F 73 From: Ariel neumann MD PCP: Dr. Tiffanie Sharma MD Status: REG CLI Study: Chest PA and Lateral Date of Exam: 11/03/24 Exam# [id number] Ordering Dr: Tiffanie Sharma MD PROCEDURE: CHEST PA AND LATERAL 11/03/2024 REASON FOR EXAM: COUGH/ PNEUMONIA TECHNIQUE: Procedure Code: RADCXR Modality: DX Procedure: CHEST PA AND LATERAL COMPARISON: Prior study dated July 17, 2024. FINDINGS: Hardware: Electrodes from a spinal cord stimulator device seen at the T7-T8 level. Heart: The heart size is normal. Mediastinum: The mediastinal contour is unremarkable. Lungs: Hyperinflation. Stable mild increased linear markings in the left mid lung suggestive of scarring. Bones: Degenerative changes are identified within the thoracic spine. RAD/Chest PA and Lateral IMPRESSION: Stable mild increased markings in the left mid lung suggestive of scarring. Reading Location: [place] [address] CC: Dr. Tiffanie Sharma MD Medicare Contact Specialist: Signed Normal [facility] Radiation Oncology Visiton 0 09-21-2024 Radiation Oncology Visit [facility] [address] [place] [address] OFFICE VISIT Date of Service: 09/21/24 1027 MR#: [id number] Acct: [id number] Name: TEAGAN VAUGHAN Rep #: [id number] : 1950 From: Trav Neves DO Age/Sex: 73/F [place] [facility] [place]: Signed Intake Vital Signs 04/20/24 10:32 07/14/24 09:55 09/08/24 09:25 09/21/24 10:31 Height 5 ft 5 in 5 ft 5 in 5 ft 5 in 5 ft 5 in Weight: 241 lb 5 oz BMI 40.1 BP 175/93 H Blood Pressure Location Rt brachial Position Sitting Respiration 16 Pulse 84 Pulse Source Monitor Temp 96.9 F L Temperature Source Temporal Artery Pulse Oximetry (%) 94 Oxygen Delivery Method room air Intake Visit Reasons: 4 MONTH LUNG, REVIEW CT Chief Complaint: xolair Is patient in pain?: No Allergies No Known Allergies Allergy (Verified 09/21/24 10:31) Medications ???Medication ???Instructions ???Recorded ???Confirmed ???Type levothyroxine 25 mcg tablet 25 mcg PO DAILY 06/10/16 09/21/24 History montelukast 10 mg tablet 10 mg PO DAILY 06/10/16 09/21/24 H istory rizatriptan 10 mg tablet (Maxalt) 10 mg PO ONCE PRN Migraine Sympto ms 05/28/17 09/21/24 History zolpidem 10 mg tablet (Ambien) 10 mg PO QHS 05/28/17 09/21/24 His tory Handicap Placcard #1 ea 09/07/17 09/21/24 Rx omalizumab 150 mg/mL subcutaneous 300 mg (2 mL) subcut Q4W #2 mL 09/21/24 Rx syringe (Xolair) folic acid 20 mg capsule 20 mg PO DAILY supplement 09/03/20 09/21/24 History albuterol sulfate 1.25 mg/3 mL 1.25 mg (3 mL) inhalation Q4H PRN 07/10/21 09/21/24 Rx solution for nebulization COPD J44.9 #180 vials metoprolol succinate 50 mg 100 mg PO DAILY 05/08/23 09/21/24 History tablet,extended release 24 hr sertraline 50 mg tablet 75 mg PO DAILY 05/08/23 09/21/24 H istory albuterol sulfate 90 mcg/actuation 2 puff inhalation Q4H PRN 09/21/24 Rx aerosol inhaler (Ventolin HFA) shortness of breath #1 device budesonide-formoterol HFA 160 2 inh inhalation BID #1 ea 2 5 09/21/24 Rx mcg-4.5 mcg/actuation aerosol inhaler (Symbicort) hydroxychloroquine 200 mg tablet 200 mg PO DAILY 03/22/24 09/21/24 History methotrexate sodium 2.5 mg tablet 20 mg PO QWEEK 03/22/24 09/21/24 History tiotropium bromide 2.5 2 inh inhalation QDAY #1 ea 09/21/24 Rx mcg/actuation mist for inhalation (Spiriva Respimat) apixaban 5 mg tablet (Eliquis) 5 mg PO BID 06/09/24 09/21/24 Hist ory acetaminophen 500 mg tablet 1,000 mg (2 x 500 mg) PO Q8H #0 09/21/24 Rx tabs apixaban 5 mg tablet (Eliquis) 2.5 mg (1/2 x 5 mg) PO BID #0 tabs 08/16/24 09/21/24 Rx oxycodone 5 mg tablet 5 - 10 mg (1 - 2 x 5 mg) PO Q4H 09/21/24 Rx PRN PRN Pain Score 4-10 #0 tabs sennosides 8.6 mg-docusate sodium 2 tab PO BID #0 tabs 08/16/24 Rx 50 mg tablet (Stimulant Laxative Plus) Have you fallen in the past year?: No PFSH PFSH Medical History Wears glasses Cancer Thyroid disease Ambulates with cane Arthritis Easy bruising DVT (deep venous thrombosis) Migraine headache Former smoker BiPAP (biphasic positive airway pressure) dependence Sleep apnea History of Holter monitoring History of echocardiogram Spinal cord stimulator status Depression Pneumonia Hypoxia Fatigue Shortness of breath Asthma COPD (chronic obstructive pulmonary disease) Allergic rhinitis Postnasal drip Cough HTN (hypertension) BMI 37.0-37.9, adult Hypothyroidism Acute asthma exacerbation Home Medications ???Medication ???Instructions ???Recorded ???Last Taken ???Type levothyroxine 25 mcg tablet 25 mcg PO DAILY 06/10/16 08/15/24 07:30 History montelukast 10 mg tablet 10 mg PO DAILY 06/10/16 08/14/24 H istory rizatriptan 10 mg tablet (Maxalt) 10 mg PO ONCE PRN Migraine Sympto ms 05/28/17 Unknown History zolpidem 10 mg tablet (Ambien) 10 mg PO QHS 05/28/17 08/14/24 His tory Handicap Placcard #1 ea 09/07/17 Unknown Rx omalizumab 150 mg/mL subcutaneous 300 mg (2 mL) subcut Q4W #2 mL 07/14/24 Rx syringe (Xolair) folic acid 20 mg capsule 20 mg PO DAILY supplement 09/03/20 08/14/24 History albuterol sulfate 1.25 mg/3 mL 1.25 mg (3 mL) inhalation Q4H PRN 07/10/21 Unknown Rx solution for nebulization COPD J44.9 #180 vials metoprolol succinate 50 mg 100 mg PO DAILY 05/08/23 08/15/24 07:30 History tablet,extended release 24 hr sertraline 50 mg tablet 75 mg PO DAILY 05/08/23 08/14/24 H istory albuterol sulfate 90 mcg/actuation 2 puff inhalation Q4H PRN 08/15/24 Rx aerosol inhaler (Ventolin HFA) shortness of breath #1 device budesonide-formoterol HFA 160 2 inh inhalation BID #1 ea 5 0 (more content not included)... Normal [facility] Chest without Contraston Chest without Contrast [facility] Imaging Services [address] [place] [address] Chest without Contrast MR#: [id number] Acct: [id number] Name: TEAGAN VAUGHAN Rep #: [id number] : 1950 F 73 From: Joselin Rogers MD PCP: Dr. Tiffanie Sharma MD Status: REG CLI Study: Chest without Contrast Date of Exam: 09/18/24 Exam# [id number] Ordering Dr: Trav Neves DO PROCEDURE: CHEST WITHOUT CONTRAST 09/18/2024 REASON FOR EXAM: FOLLOW UP TREATED LUNG CANCER right side. TECHNIQUE: Chest CT without contrast. Coronal and Sagittal reconstruction series were provided. One or more dose reduction techniques were used (e.g., Automated exposure control, adjustment of the mA and/or kV according to patient size, use of iterative reconstruction technique RADIATION DOSE SUMMARY: CTDlvol: 13.85 mGy DLP: 488.65 mGycm COMPARISON: CTA Pulmonary w/ Contrast, 07/20/2024. CT Chest w/Contrast, 04/14/2024. FINDINGS: LUNGS: Moderate emphysematous lung changes. No pulmonary mass. No acute consolidation. Unchanged left upper and lower lobe nodular and ground-glass densities. No significant change in medial left lower lobe nodule measuring 7.1 mm (Se: 4 85, Im: ). Stable 4.3 mm right upper lobe nodule (Se: 4, Im: 19). Stable triangular 3.8 mm left lower lobe nodule along the major fissure (Se: 602.2, Im: 113), possibly a perifissural lymph node. Scattered parenchymal scarring again noted. PLEURAL SPACES: No pleural effusion. No pneumothorax. HEART: No cardiomegaly. No significant pericardial effusion. Multivessel coronary artery and aortic valve calcification. MEDIASTINUM/HILUM: No significant lymphadenopathy. AORTA: No aneurysm. Scattered calcified atherosclerosis. ESOPHAGUS: Unremarkable. CHEST WALL: The chest wall is unremarkable. BONES: No acute osseous abnormality. Identified are two epidural electrodes positioned in the neural canal with the tips at the T8 level. Thoracic spine stimulator is in place. UPPER ABDOMEN: Small hiatal hernia. Partially imaged 1.6 cm exophytic fluid-density left superior pole cyst. CT/Chest without Contrast IMPRESSION: 1. Stable left upper and lower lobe ground-glass and nodular opacities. 2. Stable pulmonary nodules bilaterally. 3. Moderate emphysematous lung changes. 4. Coronary artery calcification (CAC) is present. Reading Location: [id number] CC: Dr. Tiffanie Sharma MD; Dr. Trav Neves DO Medicare Contact Specialist: Signed Normal [facility] Basic Metabolic Profile (BMP )on 08-16-2024 BUN/CRE 13.9 RATIO Normal 10-20 [facility] Comment on above: Performed By: #### L 501.5200 #### [facility] [address] [place], [address] Calcium [Mass/Vol] 8.5 mg/dL Normal 7.6-11.0 [facility] Comment on above: Performed By: #### L 501.5200 #### [facility] [address] [place], [address] Chloride [Moles/Vol] 104 mmol/L Normal 98-108 [facility] Comment on above: Performed By: #### L [id number] #### [facility] [address] [place], [address] CO2 [Moles/Vol] 24.4 mmol/L Normal 21.0-32.0 [facility] Comment on above: Performed By: #### L [id number] #### [facility] [address] [place], [address] Creatinine [Mass/Vol] 0.70 mg/dL Normal 0.70-1.20 [facility] Comment on above: Performed By: #### L 501.5200 #### [facility] [address] [place], [address] ECRCL 79.68 ml/min Normal 50-250 [facility] Comment on above: Performed By: #### L 501.5200 #### [facility] [address] [place], [address] GAP 9 Normal 5-15 [facility] Comment on above: Performed By: #### L 501.5200 #### [facility] [address] [place], [address] GFR/1.73 sq M.predicted among non-blacks MDRD (S/P/Bld) [Vol rate/Area] 92 mL/min/{1.73_m2} Normal >60 [facility] Comment on above: Result Comment: mL/m in/1.73m2 CKD-EPI Creatinine Equation (2020) Performed By: #### L 501.5200 #### [facility] [address] [place], [address] Glucose [Mass/Vol] 132 mg/dL High 70-99 [facility] Comment on above: Performed By: #### L 501.5200 #### [facility] [address] [place], [address] Potassium [Moles/Vol] 4.1 mmol/L Normal 3.3-5.1 [facility] Comment on above: Performed By: #### L [id number] #### [facility] [address] [place], [address] Sodium [Moles/Vol] 137 mmol/L Normal 133-145 [facility] Comment on above: Performed By: #### L 501.5200 #### [facility] [address] [place], [address] Urea nitrogen [Mass/Vol] 10 mg/dL Normal 4-19 [facility] Comment on above: Performed By: #### L 501.5200 #### [facility] [address] [place], [address] CBC-Complete Blood Cnt No Di ffon 08-16-2024 Erythrocyte distribution width (RBC) [Ratio] 15.2 % High 11.6-14.6 [facility] Comment on above: Performed By: #### L 501.5200 #### [facility] [address] [place], [address] Hematocrit (Bld) [Volume fraction] 32.5 % Low 37-47 [facility] Comment on above: Performed By: #### L 501.5200 #### [facility] [address] [place], [address] Hemoglobin (Bld) [Mass/Vol] 10.5 g/dL Low 12.0-15.0 [facility] Comment on above: Performed By: #### L 501.5200 #### [facility] [address] [place], [address] MCH (RBC) [Entitic mass] 30.8 pg Normal 27.0-32.0 [facility] Comment on above: Performed By: #### L 501.5200 #### [facility] [address] [place], [address] MCHC (RBC) [Mass/Vol] 32.3 g/dL Normal 32-36 [facility] Comment on above: Performed By: #### L 501.5200 #### [facility] [address] [place], [address] MCV (RBC) [Entitic vol] 95.3 fL Normal 81-99 [facility] Comment on above: Performed By: #### L 501.5200 #### [facility] [address] [place], [address] Platelet mean volume (Bld) [Entitic vol] 11.0 fL Normal 6.2-12.0 [facility] Comment on above: Performed By: #### L 501.5200 #### [facility] [address] [place], [address] Platelets (Bld) [#/Vol] 182 10*3/uL Normal 150-450 [facility] Comment on above: Performed By: #### L 501.5200 #### [facility] [address] [place], [address] RBC (Bld) [#/Vol] 3.41 10*6/uL Low 4.2-5.4 [facility] Comment on above: Performed By: #### L 501.5200 #### [facility] [address] [place], [address] RDW SD 52.6 fl High 35.1-43.9 [facility] Comment on above: Performed By: #### L 501.5200 #### [facility] [address] [place], [address] WBC (Bld) [#/Vol] 9.9 10*3/uL Normal 4.4-11.0 [facility] Comment on above: Performed By: #### L 501.5200 #### [facility] [address] [place], [address] Discharge Instructionon 07-30 Discharge Instruction [facility] Medical Records Department [address] [place] [address] Instructions for Home/Discharge Instructions 08/16/24 0741 MR#: [id number] Acct: [id number] Name: TEAGAN VAUGHAN Rep #: [id number] : 1950 73 From: Toma MONIQUE PCP: Dr. Tiffanie Sharma MD Status:ADM [facility] Discharge Instructions Diet Discharge Diet: 1800 Calorie Control Diet DC O2, CPAP, BIPAP needs Home O2 Discharge instructions: No Dressing / Incision Discharge Activity: May Not Drive (while taking narcotic pain medications.) and Use Walker May shower in (days): 2 (only if incision is dry and without drainage. Do NOT soak/submerge in tub/pool/mae/stream/hot tub.) Ice area for (Minutes): 20 (Every hour as needed for pain and swelling) Weight Bearing Status: Weight bearing as tolerated Keep extremity elevated above heart level: Operative Extremity Additional Activity Instructions:: Wear elastic stockings for 2 weeks after your surgery. Dressing / Incision Call your doctor if your incision/area has: Continuous Slow Oozing, Sudden Increased Bleeding, Increased Pain/ Swelling, Increased Redness and Foul Smelling Discharge Call your doctor if you observe: Fever of 101 or Higher, Shortness of breath, Chest pain and Calf discomfort Remove Dressing in: 5 days Cleanse incision/area with: Soap Water Additional Dressing/Incision Instructions:: See postoperative orthopedic pink sheet Follow Up Care Please Follow Up With: Toma Ny PA When: July 17, 2020 2:15 PM [facility] ([place] [facility]) Test Results: Test results from this visit will be discussed in further detail at your follow-up appointment, if applicable. Discharge Plan Admission Admit Date/Time: 08/15/24 14:09 Attending Provider: Casper Linder Primary Care Provider: Tiffanie Sharma Consulting Providers: Marilee Lopez Discharge Orders/Prescriptions Prescriptions: New acetaminophen 500 mg Tablet 1,000 mg PO Q8H Qty: 0 0RF oxycodone 5 mg Tablet 5 - 10 mg PO Q4H PRN PRN (Reason: Pain Score 4-10) Qty: 0 0RF Eliquis 5 mg Tablet 2.5 mg PO BID Qty: 0 0RF sennosides-docusate sodium [Stimulant Laxative Plus] 8.6-50 mg Tablet 2 tab PO BID Qty: 0 0RF Continued rizatriptan [Maxalt] 10 mg tablet 10 mg PO ONCE PRN (Reason: Migraine Symptoms) zolpidem [Ambien] 10 mg tablet 10 mg PO QHS (DME) Handicap Placcard Qty: 1 0RF Rx Instructions: Length of Time: 36 months Xolair 150 mg/mL syringe 300 mg SC Q4W Qty: 2 11RF Rx Instructions: requires multiple injection sites; do not exceed 150 mg per injection site folic acid 20 mg capsule 20 mg PO DAILY albuterol sulfate 1.25 mg/3 mL solution for nebulization 1.25 mg INHALATION Q4H PRN (Reason: COPD J44.9) Qty: 180 6RF methotrexate sodium 2.5 mg tablet 20 mg PO QWEEK Patient Comments: [NO ORIGINAL SIG] hydroxychloroquine 200 mg tablet 200 mg PO DAILY budesonide-formoterol [Symbicort] 160-4.5 mcg/actuation HFA aerosol inhaler 2 inh inhalation BID Qty: 1 11RF Rx Instructions: administer with spacer, rinse mouth after each use Spiriva Respimat 2.5 mcg/actuation mist 2 inh inhalation QDAY Qty: 1 6RF Rx Instructions: administer at approximately the same time(s) each day albuterol sulfate [Ventolin HFA] 90 mcg/actuation HFA aerosol inhaler 2 puff INHALATION Q4H PRN (Reason: shortness of breath) Qty: 1 6RF levothyroxine 25 MCG tablet 25 mcg PO DAILY Patient Comments: thyroid montelukast 10 MG tablet 10 mg PO DAILY Patient Comments: allergies metoprolol succinate 50 mg tablet extended release 24 hr 100 mg PO DAILY sertraline 50 mg tablet 75 mg PO DAILY Held Eliquis 5 mg tablet 5 mg PO BID Hold Instructions: Resume on 08/22/24. Hold until 5 days post operative to minimize bleeding complications Patient Comments: WILL STOP TAKING 5 DAYS PRIOR AND WILL BRIDGE WITH INJECTABLE MEDICATION Referrals / Follow Up: Tiffanie Sharma MD [Primary Care Provider] - Disposition Disposition (needs filled in before D/C Order can be placed): Home, Self Care 08/16/24 0788 Toma MONIQUE PA CC: Dr. Tiffanie Sharma MD; Dr. Marilee Lopez MD Signed Normal [facility] Bedside Glucoseon 08-15-2024 FINGERSTICK GLU 85 mg/dL Normal 74-106 [facility] Comment on above: Result Comment: REGGIE GEMENT OF PATIENT CARE PER NURSING PROTOCOL Performed By: #### L 501.080 #### [facility] [address] [place], [address] Consultation - [place]iston 08-15-2024 Consultation - Hospitalist [facility] Medical Records Department [address] [place] [address] Consultation - Hospitalist 08/15/24 1446 MR#: [id number] Acct: [id number] Name: TEAGAN VAUGHAN Rep #: [id number] : 1950 73 From: Gerald Hough DO PCP: Dr. Tiffanie Sharma MD [place] [facility] [place] [address] Assessment Plan Assessment/Plan (1) Status post right knee replacement: (2) Chronic respiratory failure with hypoxia: (3) Asthma-COPD overlap syndrome: PLAN: Plan Patient is a 73-year-old female who presented [facility] on 08/15/2024 for planned right knee replacement. Medicine consulted postoperatively for medical management. 1. Right knee osteoarthritis ??? Orthopedic surgery primary. S/p right knee replacement with Dr. Linder on 617. Tolerated procedure well, no intraoperative complications noted. Pain control, DVT prophylaxis and further management per orthopedics. PT/OT/case management consulted. 2. Mild postoperative hypoxia in setting of asthma/COPD overlap syndrome and ISIDRO with chronic respiratory failure ??? Follows with [facility] [facility]. Patient with history of severe asthma-COPD overlap syndrome. She is on 2 L nasal cannula with exertion at baseline. She also has oxygen bled in through her CPAP at night. Postoperatively she was on 4 L nasal cannula at rest but saturations were in the high 90s. She had mildly diminished breath sounds bilaterally but really good air movement throughout with no wheezing or crackles noted. Continue home triple therapy and short acting inhaler as needed. Wean supplemental oxygen as able. Continue CPAP at night. No need to consult pulmonology at this time but can consider if needed. 3. History of DVT ??? History of left lower extremity DVT first diagnosed in 01/2023. Has been on Eliquis since that time. Most recent lower extremity duplex ultrasound in 04/2024 showed no evidence of DVT. Okay to resume Eliquis at 2.5 mg twice daily for a few days to minimize postoperative bleeding, followed by resumption of Eliquis 5 mg twice daily after that. Chronic medical conditions: ??? Class III obesity: BMI 41 on admit. Complicates hospital course, care and prognosis. ??? RA: Stable. Continue home hydroxychloroquine and methotrexate weekly. ??? Hypothyroidism: Continue home Synthroid. ??? Hypertension: Hypertensive to the 150s postoperatively. Continue home Toprol. ??? Anxiety/depression: Stable. Continue home sertraline. ??? History of lung cancer s/p radiation therapy: No inpatient needs, continue outpatient follow-up. DVT prophylaxis: Eliquis 2.5 mg twice daily Total clinical time spent by myself addressing the patient's medical issues, reviewing all the data, and collaborating with patient's care team: 50 minutes. HPI Consult Data Date of Consult: 08/15/24 HPI Narrative Reason for Consultation: Postoperative medical management HPI Narrative: TEAGAN VAUGHAN, is a 73 F who presented to [facility] on 08/15/24 for planned right knee replacement. Medicine consulted postoperatively for medical management. Patient had right knee replacement done with Dr. Linder today. Tolerated procedure well, no intraoperative complications noted. I saw the patient at bedside in the PACU this afternoon. Patient was mildly sedated but otherwise laying back comfortably in bed, answering questions appropriately and in no acute distress. She was breathing comfortably on 4 L nasal cannula at rest with oxygen saturations in the high 90s. States that she uses supplemental oxygen through her CPAP at night but does not wear any oxygen during the day. Does have a history of asthma/COPD overlap syndrome and ISIDRO. On exam has mildly diminished breath sounds bilaterally throughout but no crackles noted and no wheezing noted. She otherwise denies any acute pain or discomfort. No other acute concerns currently. [facility] Medical History Wears glasses Cancer Thyroid disease Ambulates with cane Arthritis Easy bruising DVT (deep venous thrombosis) Migraine headache Former smoker BiPAP (biphasic positive airway pressure) dependence Sleep apnea History of Holter monitoring History of echocardiogram Spinal cord stimulator status Depression Pneumonia Hypoxia Fatigue Shortness of breath Asthma COPD (chronic obstructive pulmonary disease) Allergic rhinitis Postnasal drip Cough HTN (hypertension) BMI 37.0-37.9, adult Hypothyroidism Acute asthma exacerbation Home Medications ???Medication ???Instructions ???Recorded ???Last Taken ???Type levothyroxine 25 mcg tablet 25 mcg PO DAILY 06/10/16 08/15/24 07:30 History montelukast 10 mg tablet 10 mg PO DAILY 06/10/16 08/14/24 H istory rizatriptan 10 mg tablet (Maxalt) 10 mg PO ONCE PRN Migraine Sympto ms 05/28/17 Unknown History zolpidem (more content not included)... Normal [facility] Knee 1 or 2 Viewson 08-16-19 Knee 1 or 2 Views [facility] Imaging Services [address] [place] [address] Knee 1 or 2 Views MR#: [id number] Acct: [id number] Name: TEAGAN VAUGHAN Rep #: [id number] : 1950 F 73 From: Ariel neumann MD PCP: Dr. Tiffanie Sharma MD Status: [facility] Study: Knee 1 or 2 Views Date of Exam: 08/15/24 Exam# [id number] Ordering Dr: Casper Linder MD PROCEDURE: KNEE 1 OR 2 VIEWS N/A REASON FOR EXAM: POST OP EVAL TECHNIQUE: KNEE 1 OR 2 VIEWS COMPARISON: Prior study dated January 15, 2023. FINDINGS: The patient is status post total knee replacement. There is good alignment. Postoperative soft tissue changes. RAD/Knee 1 or 2 Views IMPRESSION: Status post total knee replacement. There is good alignment. Postoperative soft tissue changes. Reading Location: [place] [address] CC: Dr. Tiffanie Sharma MD; Dr. Casper Linder MD Medicare Contact Specialist: Signed [facility] MR/POSTOP.ANE 08-15-2024 MR/POSTOP.[facility] Medical Records Department [address] [place] [address] Anesthesia Postop Eval I 08/15/24 1503 MR#: [id number] Acct: [id number] Name: TEAGAN VAUGHAN Rep #: [id number] : 1950 73 From: sEsie Mensah CRNA PCP: Dr. Tiffanie Sharma MD [place] [place] Race: C Location: [place] [address] Anesthesia: Postop Eval I Current Vital Signs Temperature: 99.1 F Pulse Rate: 88 Blood Pressure: 171/99 Respiratory Rate: 16 Pulse Ox: 97 Oxygen Delivery Method: Nasal Cannula Oxygen Flow Rate (L/min): 4 Assessment Airway patent: Yes Spontaneous unlabored respirations: Yes Mental status: Awake and Calm nausea: No Vomiting: No Anesthesia Complication: No Fluid Hydration Crystalloid volume administer (ml): 1,200 Total IV fluid infused: 1,200 Progress Note Anesthesia document: Postop Eval 1 completed: Yes 08/15/24 1504 Date Essie Mensah CRNA Cosigner Signature: Date CC: Signed [facility] [id number] 08-15-2024 MR/POSTOPAN2 [facility] Medical Records Department [address] [place] [address] Anesthesia Postop Eval II 08/15/241836 MR#: [id number] Acct: [id number] Name: TEAGAN VAUGHAN Rep #: [id number] : 1950 73 From: Luke Nguyễn MD PCP: Dr. Tiffanie Sharma MD Status:[facility] Y Race: C Location: [place] [id number] Anesthesia Postop Eval I Sum Postop Eval Completion status Anesthesia document: Postop Eval 1 completed: Yes Anesthesia Postop Eval I Summary Anesthesia Postop Eval I Summary: Anesthesia Postop Eval I: Assessment Summary Airway patent Yes 08/15/24 15:04 [employer]ACE[employer]EL[employer].SKOBY Spontaneous unlabored Yes 08/15/24 15:04 [employer].SKOBY respirations Mental status Awake,Calm 08/15/24 15:04 [employer]EL[employer].SKOBY nausea No 08/15/24 15:04 [employer].SKOBY Vomiting No 08/15/24 15:04 [employer]EL[employer].SKOBY Anesthesia Postop Eval I: Fluid Summary Crystalloid volume administer 1,200 08/15/24 15:04 BRACELET MAK[employer] NOVELTY.SKOBY (ml) Colloids volume administered ( ml) Blood Product volume administered (ml) Total IV fluid infused 1,200 08/15/24 15:04 [employer] NOVEL[employer].SKOBY Anesthesia Postop Eval I: Summary Notes Anesthesia Complication No 08/15/24 15:04 [employer]ACE[employer] NOVEL[employer].SKOBY Anesthesia Complication Comment: Post-operative progress note Anesthesia: Postop Eval II Evaluation Mental status: Awake Pain Level: 0 nausea: No Vomiting: No Complications Anesthesia Complication: No 08/15/241837 Date Luke Nguyễn MD Cosigner Signature: Date CC: Signed Normal [facility] Operative Reporton 5 Operative Report [facility] Medical Records Department [address] [place] [address] Operative Report 08/15/24 1349 MR#: [id number] Acct: [id number] Name: TEAGAN VAUGHAN Rep #: [id number] : 1950 73 From: Casper Linder MD PCP: Dr. 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 [employer]: [employer] Tasks completed by first aid teacher: Closing, Implanting device and Hemostasis: Electrocautery Type of Anesthesia: General RN Documented Start/Stop Times: Operation Date: 08/15/24 11:30 Case Time Into Pre-Op 08/15/24 09:30 Out of Pre-Op 08/15/24 12:27 Anesthesia Start 08/15/24 12:29 Into Room 08/15/24 12:29 Procedure Start 08/15/24 12:54 Procedure Start Time: 12:54 Procedure Stop Time: 13:15 Select all DRAINS/GRAFTS/IMPLANTS that apply: None Special Medications: Ancef 2 g IV, Tranexamic acid intra-articular wash 2 g Estimated Blood Loss: 50 Fluids Replaced: 1200 Specimen collected: No Description of surgery: Knee replacement. See below under surgical findings Surgical Findings: Preoperative diagnosis: [Right] knee severe primary osteoarthritis Postoperative diagnosis: Same Title of procedure : [Right] total knee replacement Surgeon: Casper Linder MD Indications for surgery: Patient is a [73]-year-old [female] with a history of knee arthritis appropriately treated and failed conservative measures and wished to proceed with total knee replacement. Patient was cleared for surgery by the medical doctor and has been evaluated by the anesthesia staff Findings: Intraoperative findings showed severe arthritis of the knee. Patient underwent knee replacement using [employer] triathlon total knee components. Size [5] femur, size [5] tibia, size [5-10 CS] X3 tibial polyethylene insert, knee was nicely balanced. Patella tracked well. Patient underwent standard wound closure in layers. Vicryl and strata fix sutures utilized. Skin iram printing bindery assistant, physician promotions assistant, was utilized throughout the entire procedure. They were vital in helping with patient positioning, holding of retractors, exposing the tissues adequately for safe completion of the procedure including cutting of the bone, helping cop winder appropriate alignment and sizing of the components, implantation of the components, as well as wound closure, bandage application, and safe patient transfer. Without surgical manager, physician promotions assistant, surgical time would have been significantly increased, and surgical outcome could have been less optimal. Description of procedure: The patient was taken to the OR, transferred to the OR table. They were given a spinal anesthetic. Ancef was given IV preoperatively. Tranexamic acid was given IV preoperatively. Well-padded tourniquet was applied to the upper thigh of the operative leg. Nonoperative leg had a TA hose and SCD on throughout. Operative limb was prepped padded and draped in usual orthopedic sterile fashion for the procedure. We began by injecting the pain relieving solution in the anterior superior aspect of the knee region. The limb was exsanguinated, and the tourniquet was applied to 300 mmHg. Made a midline incision through skin, subcutaneous tissue, bringing down us on the extensor mechanism. Medial parapatellar arthrotomy was carried out. Straw-colored joint fluid was evacuated. We raised a sleeve of tissue off the upper medial tibia. Resected some of the infrapatellar fat pad. We remove degenerative medial and lateral meniscus. Removed bone spurs from about the joint. We removed tissue off the anterior aspect of the distal femur. Patella was translated laterally and/or everted as needed throughout the procedure. ACL was resected. PCL was preserved. Collateral ligaments were preserved. Physician placed the retractors and promotions assistant held retractors protecting above ligaments throughout the procedure. Cartilage was taken off the distal femur and upper tibia at appropriate locations. 1 cutting block used. Next cutting block was applied to the front of the femur. Distal cut carried out. 4-in-1 cutting block was applied to the distal femur and held in place with 2 pins. Monotype Setter again held retractors to protect the soft tissues while surgeon performed anterior, posterior, and chamfer cuts. Bony fragments were removed. PCL retractor was placed and collateral ligament protectors placed by the surgeon, held by the assistance. Tibial external alignment guide was utilized under standard technique going down the shaft of the tibia, to the base of the second metatarsal. Appropriate posterior slope was built in. Monotype Setter (more content not included)... Normal [facility] Comprehensive Metabolic Prof ilon 08-08-2024 Albumin [Mass/Vol] 3.8 g/dL Normal 3.4-4.8 [facility] Comment on above: Performed By: #### L 500.4050 #### [facility] [address] [place], [address] Albumin/Globulin [Mass ratio] 1.3 {ratio} Normal 0.9-2.4 [facility] Comment on above: Performed By: #### L 500.4050 #### [facility] [address] [place], [address] ALK PHOS 82 U/L Normal 35-104 [facility] Comment on above: Performed By: #### L 500.4050 #### [facility] [address] [place], [address] ALT [Catalytic activity/Vol] 22 U/L Normal <=34 [facility] Comment on above: Performed By: #### L 500.4050 #### [facility] [address] [place], [address] AST [Catalytic activity/Vol] 30 U/L Normal <=31 [facility] Comment on above: Performed By: #### L 500.4050 #### [facility] [address] [place], [address] Bilirubin [Mass/Vol] 0.66 mg/dL Normal 0.00-1.30 [facility] Comment on above: Performed By: #### L 500.4050 #### [facility] [address] [place], [address] BUN/CRE 13.9 RATIO Normal 10-20 [facility] Comment on above: Performed By: #### L 500.4050 #### [facility] [address] [place], [address] Calcium [Mass/Vol] 9.3 mg/dL Normal 7.6-11.0 [facility] Comment on above: Performed By: #### L 500.4050 #### [facility] [address] [place], [address] Chloride [Moles/Vol] 102 mmol/L Normal 98-108 [facility] Comment on above: Performed By: #### L 500.4050 #### [facility] [address] [place], [address] CO2 [Moles/Vol] 26.6 mmol/L Normal 21.0-32.0 [facility] Comment on above: Performed By: #### L 500.4050 #### [facility] [address] [place], [address] Creatinine [Mass/Vol] 0.71 mg/dL Normal 0.70-1.20 [facility] Comment on above: Performed By: #### L 500.4050 #### [facility] [address] [place], [address] GAP 11 Normal 5-15 [facility] Comment on above: Performed By: #### L 500.4050 #### [facility] [address] [place], [address] GFR/1.73 sq M.predicted among non-blacks MDRD (S/P/Bld) [Vol rate/Area] 90 mL/min/{1.73_m2} Normal >60 [facility] Comment on above: Result Comment: mL/m in/1.73m2 CKD-EPI Creatinine Equation (2020) Performed By: #### L 500.4050 #### [facility] [address] [place], [address] Globulin (S) [Mass/Vol] 2.9 g/dL Normal 2.2-4.2 [facility] Comment on above: Performed By: #### L 500.4050 #### [facility] [address] [place], [address] Glucose [Mass/Vol] 147 mg/dL High 70-99 [facility] Comment on above: Performed By: #### L 500.4050 #### [facility] [address], [address] Potassium [Moles/Vol] 3.7 mmol/L Normal 3.3-5.1 [facility] Comment on above: Performed By: #### L 500.4050 #### [facility] [address], [address] Sodium [Moles/Vol] 139 mmol/L Normal 133-145 [facility] Comment on above: Performed By: #### L 500.4050 #### [facility] [address], [address] T PROT 6.7 g/dL Normal 5.9-8.4 [facility] Comment on above: Performed By: #### L 500.4050 #### [facility] [address], [address] Urea nitrogen [Mass/Vol] 10 mg/dL Normal 4-19 [facility] Comment on above: Performed By: #### L 500.4050 #### [facility] [address], [address] MRSA/SAID NASAL SCREENon MRSA+SAID SCRN Reason for Exam: PRE OP MRSA MRSA Negative S. AUREUS S. aureus PositiveA Normal [facility] Comment on above: Performed By: #### L 501.5200 #### [facility] [address] [place], [address] MR/PAT.ANEon 08-03-2024 MR/PAT.ANE [facility] Medical Records Department [address] [place] [address] PAT - Anesthesia 08/03/24 1703 MR#: [id number] Acct: [id number] Name: TEAGAN VAUGHAN Rep #: [id number] : 1950 73 From: Jace King MD PCP: Dr. Tiffanie Sharma MD Status:PRE SD Y Race: C [place] [facility] [place] Diagnosis/Proposed Procedure Planned Operative Procedure(s): RIGHT TOTAL KNEE REPLACEMENT Anesthesia History Anesthesia History - turn operator: Anesthesia History - turn operator Hx Hospitalization No 08/01/24 14:25 Any Problems With Anesthesia No 08/01/24 14:25 Cholinesterase deficiency No 08/01/24 14:25 You/Your Family Experience No 08/01/24 14:25 fever (hyperthermia) with Relationship Recent Exposure to Contagious Disease Does patient have nerve No 08/01/24 14:25 stimulator Patient instructed to have device shut off --Does patient have Pacemaker or ICD? When Was Last Pacemaker Check QUESTION #4 FULL TEXT: You/Your Family Experience fever (hyperthermia) with Anesthesia Last Oral Intake Last Oral intake: Last Oral Intake NPO since Meds taken in AM with sips of water? Meds patient instructed to take am of surgery PONV PONV - turn operator: PONV - turn operator Female Yes 08/01/24 14:25 HX of Motion Sickness No 08/01/24 14:25 HX of N/V After Surgery No 08/01/24 14:25 Non-Smoker Yes 08/01/24 14:25 Duration of Surgery greater Yes 08/01/24 14:25 than 60 minutes Number of Risk Factors 3 08/01/24 14:25 PONV Score Moderate Risk 08/01/24 14:25 Height Weight Height Weight: Anesthesia: Height Weight Height 5 ft 5 in 07/05/24 08:03 Respiratory Assessment Respiratory Assessment - turn operator: Respiratory Tract Infection Hx - turn operator Hx Respiratory Tract Infection No 08/01/24 14:25 STOP Sleep Apnea STOP Sleep Apnea - turn operator: STOP Sleep Apnea - turn operator Hx Hypertension Yes 08/01/24 14:25 Hx Sleep Apnea Yes 08/01/24 14:25 CPAP No 08/01/24 14:25 BIPAP Yes 08/01/24 14:25 Do you snore loudly (louder than talking or can be heard Do you often feel tired/ fatigued/ sleepy during daytime? Has anyone observed you stop breathing during sleep? STOP Results Positive 08/01/24 14:25 QUESTION #5 FULL TEXT : Do you snore loudly (louder than talking or can be heard through closed doors)? Tobacco Use History Tobacco Use History - turn operator: Tobacco Use History - turn operator Tobacco Use Smoking Status Former smoker 08/01/24 14:25 Hx Tobacco Use Yes 08/01/24 14:25 Years Smoking Packs Smoked per Day Smoking Cessation Date was No - quit smoking greater 08/01/24 14:25 within the last 15 years than 15 years ago Hx Smoking Cessation Date Hx Smoking Cessation No 08/01/24 14:25 Counseling Hematologic Medial History Hematologic Hx - turn operator: Hematologic Medical Hx - documentation clerk Hx of Blood Transfusion No 08/01/24 14:25 Hx of Transfusion in last 3 No 08/01/24 14:25 Months Date of Last Transfusion (if within last 3 months) Ever experience any problems No 08/01/24 14:25 with transfusion(s)? Specify any problems Hx of Preganancy in last 3 No 08/01/24 14:25 Months Nurse Filling Out Transfusion [facility] 08/01/24 14:25 Questions: Date: 08/01/24 08/01/24 14:25 Time: 14:32 08/01/24 14:25 Patient unable to answer at this time (ie. confused, unrespo /Reproduction History /Reproductive History - turn operator: /Reproductive Hx- turn operator Hx Now Gestational Age (in weeks): EDC: Hx Hx Para Hx Section [facility] Medical History Wears glasses Cancer Thyroid disease Ambulates with cane Arthritis Easy bruising DVT (deep venous thrombosis) Migraine headache Former smoker BiPAP (biphasic positive airway pressure) dependence Sleep apnea History of Holter monitoring History of echocardiogram Spinal cord stimulator status Depression Pneumonia Hypoxia Fatigue Shortness of breath Asthma COPD (chronic obstructive pulmonary disease) Allergic rhinitis Postnasal drip Cough HTN (hypertension) BMI 37.0-37.9, adult Hypothyroidism Acute asthma exacerbation Home Medications ???Medication ???Instructions ???Recorded ???Last Taken ???Type levothyroxine 25 mcg tablet 25 mcg PO DAILY 06/10/16 05/30/16 History montelukast 10 mg tablet 10 mg PO DAILY 06/10/16 06/10/16 0 8:00 History rizatriptan 10 mg tablet (Maxalt) 10 mg PO ONCE PRN Migraine Sympto ms 05/28/17 Unknown History (more content not included)... Normal [facility] Magnesiumon 08-03-2024 Magnesium [Mass/Vol] 2.1 mg/dL Normal 1.5-2.2 [facility] Comment on above: Performed By: #### L 501.5200 #### [facility] [address] [place], [address] Albumin, Serumon 07-28-2024 Albumin [Mass/Vol] 3.8 g/dL Normal 3.4-4.8 [facility] Comment on above: Order Comment: DR. Lety PATTERSON ORDERED A1C DR. LINDER ORDERED ALB.CMP. CBCD Performed By: #### L 500.2500, L501.1800, L100.0100, L501.9985 #### [facility] [address] [place], [address] Basic Metabolic Profile (BMP )on 07-28-2024 BUN/CRE 13.2 RATIO Normal 10-20 [facility] Comment on above: Order Comment: DR. Lety PATTERSON ORDERED A1C DR. LINDER ORDERED ALB.CMP. CBCD Performed By: #### L 500.2500, L501.1800, L100.0100, L501.9985 #### [facility] [address] [place], [address] Calcium [Mass/Vol] 9.3 mg/dL Normal 7.6-11.0 [facility] Comment on above: Order Comment: DR. Lety PATTERSON ORDERED A1C DR. LINDER ORDERED ALB.CMP. CBCD Performed By: #### L 500.2500, L501.1800, L100.0100, L501.9985 #### [facility] [address] [place], [address] Chloride [Moles/Vol] 102 mmol/L Normal 98-108 [facility] Comment on above: Order Comment: DR. Lety PATTERSON ORDERED A1C DR. LINDER ORDERED ALB.CMP. CBCD Performed By: #### L 500.2500, L501.1800, L100.0100, L501.9985 #### [facility] [address] [place], [address] CO2 [Moles/Vol] 24.7 mmol/L Normal 21.0-32.0 [facility] Comment on above: Order Comment: DR. Lety PATTERSON ORDERED A1C DR. LINDER ORDERED ALB.CMP. CBCD Performed By: #### L 500.2500, L501.1800, L100.0100, L501.9985 #### [facility] [address] [place], [address] Creatinine [Mass/Vol] 0.78 mg/dL Normal 0.70-1.20 [facility] Comment on above: Order Comment: DR. Lety PATTERSON ORDERED A1C DR. LINDER ORDERED ALB.CMP. CBCD Performed By: #### L 500.2500, L501.1800, L100.0100, L501.9985 #### [facility] [address] [place], [address] GAP 11 Normal 5-15 [facility] Comment on above: Order Comment: DR. Lety PATTERSON ORDERED A1C DR. LINDER ORDERED ALB.CMP. CBCD Performed By: #### L 500.2500, L501.1800, L100.0100, L501.9985 #### [facility] [address] [place], [address] GFR/1.73 sq M.predicted among non-blacks MDRD (S/P/Bld) [Vol rate/Area] 81 mL/min/{1.73_m2} Normal >60 [facility] Comment on above: Order Comment: DR. Lety PATTERSON ORDERED A1C DR. LINDER ORDERED ALB.CMP. CBCD Result Comment: mL/m in/1.73m2 CKD-EPI Creatinine Equation (2020) Performed By: #### L 500.2500, L501.1800, L100.0100, L501.9985 #### [facility] [address] [place], [address] Glucose [Mass/Vol] 105 mg/dL High 70-99 [facility] Comment on above: Order Comment: DR. Lety PATTERSON ORDERED A1C DR. LINDER ORDERED ALB.CMP. CBCD Performed By: #### L 500.2500, L501.1800, L100.0100, L501.9985 #### [facility] [address] [place], [address] Potassium [Moles/Vol] 3.7 mmol/L Normal 3.3-5.1 [facility] Comment on above: Order Comment: DR. Lety PATTERSON ORDERED A1C DR. LINDER ORDERED ALB.CMP. CBCD Performed By: #### L 500.2500, L501.1800, L100.0100, L501.9985 #### [facility] [address] [place], [address] Sodium [Moles/Vol] 138 mmol/L Normal 133-145 [facility] Comment on above: Order Comment: DR. Lety PATTERSON ORDERED A1C DR. LINDER ORDERED ALB.CMP. CBCD Performed By: #### L 500.2500, L501.1800, L100.0100, L501.9985 #### [facility] [address] [place], [address] Urea nitrogen [Mass/Vol] 10 mg/dL Normal 4-19 [facility] Comment on above: Order Comment: DR. Lety PATTERSON ORDERED A1C DR. LINDER ORDERED ALB.CMP. CBCD Performed By: #### L 500.2500, L501.1800, L100.0100, L501.9985 #### [facility] [address] [place], [address] CBC W/Diff, Automatedon 05-3 0-2024 Absolute Lymph 0.86 X10 3/uL Normal 0.83-4.51 [facility] Comment on above: Order Comment: DR. Lety PATTERSON ORDERED A1C DR. LINDER ORDERED ALB.CMP. CBCD Performed By: #### L 500.2500, L501.1800, L100.0100, L501.9985 #### [facility] [address] [place], [address] Absolute Neut 4.6 X10 3/uL Normal 2.0-7.7 [facility] Comment on above: Order Comment: DR. Lety PATTERSON ORDERED A1C DR. LINDER ORDERED ALB.CMP. CBCD Performed By: #### L 500.2500, L501.1800, L100.0100, L501.9985 #### [facility] [address] [place], [address] Basophils/100 WBC (Bld) 0.3 % Normal 0-1 [facility] Comment on above: Order Comment: DR. Lety PATTERSON ORDERED A1C DR. LINDER ORDERED ALB.CMP. CBCD Performed By: #### L 500.2500, L501.1800, L100.0100, L501.9985 #### [facility] [address] [place], [address] Eosinophils/100 WBC (Bld) 2.2 % Normal 0-5 [facility] Comment on above: Order Comment: DR. Lety PATTERSON ORDERED A1C DR. LINDER ORDERED ALB.CMP. CBCD Performed By: #### L 500.2500, L501.1800, L100.0100, L501.9985 #### [facility] [address] [place], [address] Erythrocyte distribution width (RBC) [Ratio] 14.9 % High 11.6-14.6 [facility] Comment on above: Order Comment: DR. Lety PATTERSON ORDERED A1C DR. LINDER ORDERED ALB.CMP. CBCD Performed By: #### L 500.2500, L501.1800, L100.0100, L501.9985 #### [facility] [address] [place], [address] Hematocrit (Bld) [Volume fraction] 40.7 % Normal 37-47 [facility] Comment on above: Order Comment: DR. Lety PATTERSON ORDERED A1C DR. LINDER ORDERED ALB.CMP. CBCD Performed By: #### L 500.2500, L501.1800, L100.0100, L501.9985 #### [facility] [address] [place], [address] Hemoglobin (Bld) [Mass/Vol] 13.0 g/dL Normal 12.0-15.0 [facility] Comment on above: Order Comment: DR. Lety PATTERSON ORDERED A1C DR. LINDER ORDERED ALB.CMP. CBCD Performed By: #### L 500.2500, L501.1800, L100.0100, L501.9985 #### [facility] [address] [place], [address] IG% 0.600 Normal 0.0-0.9 [facility] Comment on above: Order Comment: DR. Lety PATTERSON ORDERED A1C DR. LINDER ORDERED ALB.CMP. CBCD Result Comment: IG% - Immature Granulocytes (promyelocytes, myelocytes and metamyelocytes) > 1% indicates that a LEFT SHIFT is Present. Performed By: #### L 500.2500, L501.1800, L100.0100, L501.9985 #### [facility] [address] [place], [address] Lymphocytes/100 WBC (Bld) 13.7 % Low 19-41 [facility] Comment on above: Order Comment: DR. Lety PATTERSON ORDERED A1C DR. LINDER ORDERED ALB.CMP. CBCD Performed By: #### L 500.2500, L501.1800, L100.0100, L501.9985 #### [facility] [address] [place], [address] MCH (RBC) [Entitic mass] 30.8 pg Normal 27.0-32.0 [facility] Comment on above: Order Comment: DR. Lety PATTERSON ORDERED A1C DR. LINDER ORDERED ALB.CMP. CBCD Performed By: #### L 500.2500, L501.1800, L100.0100, L501.9985 #### [facility] [address] [place], [address] MCHC (RBC) [Mass/Vol] 31.9 g/dL Low 32-36 [facility] Comment on above: Order Comment: DR. Lety PATTERSON ORDERED A1C DR. LINDER ORDERED ALB.CMP. CBCD Performed By: #### L 500.2500, L501.1800, L100.0100, L501.9985 #### [facility] [address] [place], [address] MCV (RBC) [Entitic vol] 96.4 fL Normal 81-99 [facility] Comment on above: Order Comment: DR. Lety PATTERSON ORDERED A1C DR. LINDER ORDERED ALB.CMP. CBCD Performed By: #### L 500.2500, L501.1800, L100.0100, L501.9985 #### [facility] [address] [place], [address] Monocytes/100 WBC (Bld) 9.7 % Normal 0-10 [facility] Comment on above: Order Comment: DR. Lety PATTERSON ORDERED A1C DR. LINDER ORDERED ALB.CMP. CBCD Performed By: #### L 500.2500, L501.1800, L100.0100, L501.9985 #### [facility] [address] [place], [address] Neutrophils/100 WBC (Bld) 73.5 % High 47-70 [facility] Comment on above: Order Comment: DR. Lety PATTERSON ORDERED A1C DR. LINDER ORDERED ALB.CMP. CBCD Performed By: #### L 500.2500, L501.1800, L100.0100, L501.9985 #### [facility] [address] [place], [address] Nucleated RBC (Bld) [#/Vol] 0 10*3/uL Normal 0-5 [facility] Comment on above: Order Comment: DR. Lety PATTERSON ORDERED A1C DR. LINDER ORDERED ALB.CMP. CBCD Performed By: #### L 500.2500, L501.1800, L100.0100, L501.9985 #### [facility] [address] [place], [address] Platelet mean volume (Bld) [Entitic vol] 11.5 fL Normal 6.2-12.0 [facility] Comment on above: Order Comment: DR. Lety PATTERSON ORDERED A1C DR. LINDER ORDERED ALB.CMP. CBCD Performed By: #### L 500.2500, L501.1800, L100.0100, L501.9985 #### [facility] [address] [place], [address] Platelets (Bld) [#/Vol] 221 10*3/uL Normal 150-450 [facility] Comment on above: Order Comment: DR. Lety PATTERSON ORDERED A1C DR. LINDER ORDERED ALB.CMP. CBCD Performed By: #### L 500.2500, L501.1800, L100.0100, L501.9985 #### [facility] [address] [place], [address] RBC (Bld) [#/Vol] 4.22 10*6/uL Normal 4.2-5.4 [facility] Comment on above: Order Comment: DR. Lety PATTERSON ORDERED A1C DR. LINDER ORDERED ALB.CMP. CBCD Performed By: #### L 500.2500, L501.1800, L100.0100, L501.9985 #### [facility] [address] [place], [address] RDW SD 52.4 fl High 35.1-43.9 [facility] Comment on above: Order Comment: DR. Lety PATTERSON ORDERED A1C DR. LINDER ORDERED ALB.CMP. CBCD Performed By: #### L 500.2500, L501.1800, L100.0100, L501.9985 #### [facility] [address] [place], [address] WBC (Bld) [#/Vol] 6.3 10*3/uL Normal 4.4-11.0 [facility] Comment on above: Order Comment: DR. Lety PATTERSON ORDERED A1C DR. LINDER ORDERED ALB.CMP. CBCD Performed By: #### L 500.2500, L501.1800, L100.0100, L501.9985 #### [facility] [address] [place], [address] Hemoglobin A1con 07-28-2024 HbA1c (Bld) [Mass fraction] 6.5 % High <=5.6 [facility] Comment on above: Order Comment: DR. Lety PATTERSON ORDERED A1C DR. LINDER ORDERED ALB.CMP. CBCD Result Comment: Norm al < 5.7 % Prediabetic 5.7 - 6.4 % Diabetic >or= 6.5 % Please note range changes. Performed By: #### L 500.2500, L501.1800, L100.0100, L501.9985 #### [facility] [address] [place], [address] CTA Chest W/WO Contraston CTA Chest W/WO Contrast [facility] Imaging Services [address] [facility] [address] [facility] [place] [address] CTA Chest W/WO Contrast MR#: [id number] Acct: [id number] Name: TEAGAN VAUGHAN Rep #: [id number] : 1950 F 73 From: Carrie Keating PCP: Dr. Tiffanie Sharma MD Status: REG CLI Study: CTA Chest W/WO Contrast Date of Exam: 07/20/24 Exam# [id number] Ordering Dr: Tiffanie Sharma MD PROCEDURE: CTA CHEST W/WO CONTRAST 07/20/2024 REASON FOR EXAM: DYSPNEA,POSSIBLE PE TECHNIQUE: CTA axial imaging of the chest with intravenous contrast. Multiplanar and multisequence images were obtained. PATIENT PREPARATION: Per protocol CONTRAST: 100 mL of Isovue 370 One or more dose reduction techniques were used (e.g., Automated exposure control, adjustment of the mA and/or kV according to patient size, use of iterative reconstruction technique). RADIATION DOSE SUMMARY: DLP: 486 mGycm . COMPARISON: 04/14/2024 FINDINGS: Neurostimulator device noted. PULMONARY ARTERIES: No evidence of pulmonary embolism. LUNGS AND PLEURA: Grossly stable left upper and lower lobe nodular and ground-glass densities. Diffuse moderate pulmonary emphysema. No new large focal consolidations. No definite pulmonary edema. No pleural effusion. No pneumothorax. Interval minimally increased 7.5 mm pulmonary nodule within the left lower lobe (series 2, image 89), previously measuring 6 mm. MEDIASTINUM: No lymphadenopathy or mass. The heart shows no acute findings. Moderate coronary atherosclerosis/stents. Calcified airways of the trachea, bronchi, and bronchioles. The aorta shows no acute findings. Mild atherosclerotic changes of the thoracic aorta. SUPRACLAVICULAR AND AXILLARY: No abnormalities seen in these regions. No mass or significant lymphadenopathy. UPPER ABDOMEN: The visualized upper abdomen is unremarkable. BONES AND SOFT TISSUES: The ribs are unremarkable. The visualized spine shows no significant acute findings. No focal bony mass lesions noted. The subcutaneous soft tissues are unremarkable. CT/CTA Chest W/WO Contrast IMPRESSION: No acute pulmonary emboli. Grossly stable left upper and lower lobe nodular and ground-glass densities. Diffuse moderate pulmonary emphysema. No new focal consolidations. Interval minimally increased 7.5 mm pulmonary nodule within the left lower lobe (series 2, image 89), previously measuring 6 mm. Reading Location: [id number] CC: Dr. Tiffanie Sharma MD Medicare Contact Specialist: Signed Normal [facility] 12 Lead EKGon 07-17-2024 12 Lead EKG [facility] Cardiovascular Services [address] [place] [address] 12 Lead EKG 07/17/24 0856 MR#: [id number] Acct: [id number] Name: TEAGAN VAUGHAN Rep #: [id number] : 1950 73 From: Jase Post MD Attending Dr: Dr. Casper Linder MD Status: REG CLI Ordering Dr: Casper Linder MD Date: 07/17/24 Location: [facility] Sex: F C Admitted: Test Reason : PRE OP Blood Pressure : */* mmHG Vent. Rate : 78 BPM Atrial Rate : 78 BPM P-R Int : 170 ms QRS Dur : 140 ms QT Int : 432 ms P-R-T Axes : 63 41 39 degrees QTcB Int : 492 ms Normal sinus rhythm Right bundle branch block Abnormal ECG Confirmed by JASE POST MD ([id number]), editor farm journal ABIEL ALMARAZ ([id number]) on 07/17/2024 9:48:13 AM Referred By: Casper Linder Confirmed By: JASE POST MD 07/17/24 0948 Date Jase Post MD CC: Dr. Tiffanie Sharma MD; Dr. Casper Linder MD Signed Normal [facility] Chest PA and Lateralon 07-17 Chest PA and Lateral [facility] Imaging Services [address] [place] [address] Chest PA and Lateral MR#: [id number] Acct: [id number] Name: TEAGAN VAUGHAN Rep #: [id number] : 1950 F 73 From: Dom Butts MD PCP: Dr. Tiffanie Sharma MD Status: REG CLI Study: Chest PA and Lateral Date of Exam: 07/17/24 Exam# [id number] Ordering Dr: Casper Linder MD EXAM: XR Chest, 2 Views CLINICAL INDICATION: PRE OP TECHNIQUE: Frontal and lateral views of the chest. COMPARISON: No relevant prior studies available. FINDINGS: LUNGS AND PLEURAL SPACES: Unremarkable. No consolidation. No pneumothorax. HEART: Unremarkable. No cardiomegaly. MEDIASTINUM: Unremarkable. Normal mediastinal contour. BONES/JOINTS: Unremarkable. No acute fracture. RAD/Chest PA and Lateral IMPRESSION: No acute cardiopulmonary process. Reading Location: [facility] CC: Dr. Tiffanie Sharma MD; Dr. Casper Linder MD Medicare Contact Specialist: Signed Normal [facility] Pulmonary Visit Reporton Pulmonary Visit Report [facility] [place] [address] [place] [address] OFFICE VISIT Date of Service: 07/05/24 MR#: [id number] Acct: [id number] Name: TEAGAN VAUGHAN Rep #: [id number] : 1950 Provider: INDIRA Butts Age/Sex: 73/F Location: [facility] Status: Signed Assessment and Plan Assessment and Plan (1) Asthma-COPD overlap syndrome: Status: Chronic Comment: FEV1 46% of predicted Plan: She does not appear to be in exacerbation of severe asthma/COPD overlap syndrome today. Continue triple therapy with the use of Symbicort and Spiriva. Continue Xolair monthly injections, as well as Singulair daily. I considered repeating a pulmonary function test, however the patient is already on triple therapy. Ultimately, it would not change therapy. She had a pulmonary function test 2 years ago that indicated severe COPD with 46% lung function. I did discuss with her that she is at high risk for surgery with general anesthesia. She may require ventilator support postoperatively. I suggested that she have a conversation with her family about her thoughts and feelings on being on life support. The patient initially had planned to have this knee replacement done at an outpatient surgery center, I would advise against this. I suggested that she would be better suited to have the procedure done here at [facility] where her manager heart failure is on staff and can be consulted should she develop any complications. She conveys understanding and is agreeable with this plan. She plans to discuss this with the orthopedic surgeon. (2) ISIDRO (obstructive sleep apnea): Status: Chronic Plan: Stable, however she does have significant leak. Sending the patient to PAP education to be evaluated for appropriate mask and headgear fit. No indication for retitration study at this time, AHI remains controlled. Follow-up in the office in August as previously scheduled. (3) Malignant neoplasm of lower lobe, left bronchus or lung: Status: Chronic Plan: Complicates exam, plan, care and prognosis. Serial imaging currently being managed by radiation oncology. (4) Chronic respiratory failure with hypoxia: Status: Chronic Comment: 2 L with exertion Plan: Currently she is using and benefiting from supplemental oxygen. The patient thought this was a new problem. However, it is documented back in 2019 that she required 2 L/min on exertion. Given that the patient has knee problems at this time I do not see that it is feasible to repeat an ambulatory walk test for reevaluation. She is checking her oxygen saturations. I told her it is important to titrate as needed to maintain saturations 89 to 92%. She conveys understanding and is agreeable. Could consider obtaining an echocardiogram given recent treatment with diuretics, however they could be secondary to knee injury as well. (5) Obesity: Status: Chronic Qualifiers: Obesity type: due to excess calories Obesity classification: adult class 3 (BMI >= 40) Serious obesity comorbidity presence: with serious comorbidity Body mass index: BMI 40.0-44.9 Qualified Code(s): E66.813 - Obesity, class 3; Z68.41 - Body mass index [BMI] 40.0-44.9, adult Plan: Deteriorated. Unfortunately, the patient has put on excess weight since last office visit. Encourage healthy weight loss. Orders: Orders Self Mgmnt Educ Training Today G47.33 - Obstructive sleep apnea (adult) (pediatric) Plan Details Additional Comments: This note was generated with Swift [employer] dictation software. It may contain incorrect words, spelling, and punctuation that were not noted in checking the note before signing. HPI Surgery clearance Chief Complaint: Surgical clearance HPI Comments Details: This very pleasant 73-year-old female presents to the office today for follow-up of her asthma/COPD overlap syndrome complicated by obstructive sleep apnea and non-small cell lung cancer. She is in wheelchair and currently on room air. She has not recently been seen in the ED or urgent care for any respiratory illness. She has not recently required antibiotics or steroids for any breathing problems. She is compliant with the use of Symbicort 2 puffs twice daily and Spiriva once daily. She does report rinsing her mouth out after each use. She denies any medication side effect such as sore throat or thrush. She is also compliant with Singulair daily and Xolair monthly. She uses her albuterol rescue inhaler every morning routinely. She has shortness of breath that is worse on exertion. She has an occasional dry cough. She is reporting wheezing. She denies any chest tightness, chest pain or palpitations. She also denies any fever, chills or body aches. If you recall, she is a previous smoker. She quit smoking completely approximately 15 years ago. She is currently using 2 L/min of sup (more content not included)... Normal [facility] Extremity Lower without Cont raon 06-09-2024 Extremity Lower without Contra [facility] Imaging Services [address] [place], [place] [address] Extremity Lower without Contra MR#: [id number] Acct: [id number] Name: TEAGAN VAUGHAN Rep #: [id number] : 1950 F 73 From: Andrea Miguel PCP: Dr. Tiffanie Sharma MD Status: DEP CLI Study: Extremity Lower without Contra Date of Exam: 0 06/09/24 Exam# [id number] Ordering Dr: Casper Linder MD PROCEDURE: EXTREMITY LOWER WITHOUT CONTRA 06/09/2024 REASON FOR EXAM: PRE OP WASC TECHNIQUE: Multiple contiguous axial images of the right knee, hip and ankle were obtained without the administration of intravenous contrast. Two-dimensional coronal and sagittal reformatted images were reconstructed. Low-dose imaging technique was utilized. One or more dose reduction techniques were used (e.g., Automated exposure control, adjustment of the mA and/or kV according to patient size, use of iterative reconstruction technique). COMPARISON: None FINDINGS: See impression CT/Extremity Lower without Contra IMPRESSION: Tricompartmental right knee osteoarthritis, severe in the medial compartment including [id number] articulation. Negative for acute fracture or malalignment. No significant right knee joint effusion. Small Ordaz's cyst. Mild right hip osteoarthritis. Distal colonic diverticulosis. Calcaneal enthesopathy. Reading Location: [facility] CC: Dr. Tiffanie Sharma MD; Dr. Casper Linder MD Medicare Contact Specialist: Signed Normal [facility] Prothrombin Time w/INRon INR Coag (PPP) [Relative time] 4.3 {INR} Invalid Interpretation Code [facility] Comment on above: Performed By: #### L 501.5200 #### [facility] [address] [place], [address] PT Coag (PPP) [Time] 42.1 s High 11.7-14.9 [facility] Comment on above: Performed By: #### L 501.5200 #### [facility] [address] [place], [address] Prothrombin Time w/INRon INR Coag (PPP) [Relative time] 2.2 {INR} Normal [facility] Comment on above: Performed By: #### L 300.3900 #### [facility] [address] [place], [address] PT Coag (PPP) [Time] 24.6 s High 11.7-14.9 [facility] Comment on above: Performed By: #### L 300.3900 #### [facility] [address] [place], [address] Prothrombin Time w/INRon INR Coag (PPP) [Relative time] 4.4 {INR} Invalid Interpretation Code [facility] Comment on above: Order Comment: CRITI ANAIS VALUE CALLED TO DYAN BELTRÁN04/26/24 1542 Sheri Lollo.RESULTS READ BACK BY SAME. Performed By: #### L 300.3900 #### [facility] [address] [place], [address] PT Coag (PPP) [Time] 43.0 s High 11.7-14.9 [facility] Comment on above: Order Comment: CRITI ANAIS VALUE CALLED TO DYAN BELTRÁN04/26/24 1542 Sheri Lollo.RESULTS READ BACK BY SAME. Performed By: #### L 300.3900 #### [facility] [address] [place], [address] Radiation Oncology Visiton 0 04-20-[address] [facility] [address] [place], [place] [address] OFFICE VISIT Date of Service: 04/20/24 1028 MR#: [id number] Acct: [id number] Name: TEAGAN VAUGHAN Rep #: [id number] : 1950 From: Trav Neves DO Age/Sex: 73/F Location: [facility] Status: Signed Intake Vital Signs 12/23/23 11:06 04/07/24 12:02 04/20/24 10:32 Height 5 ft 5 in 5 ft 5 in 5 ft 5 in Weight: 232 lb 2 oz BMI 38.6 BP 156/86 H Blood Pressure Location Rt brachial Position Sitting Respiration 18 Pulse 86 Pulse Source Monitor Temp 97.5 F L Temperature Source Temporal Artery Pulse Oximetry (%) 95 Oxygen Delivery Method room air Intake Visit Reasons: 4 MONTH F/U LUNG, REVIEW CT Is patient in pain?: Yes (knee) Pain scale (1-10): 6 Allergies No Known Allergies Allergy (Verified 04/20/24 10:31) Medications ???Medication ???Instructions ???Recorded ???Confirmed ???Type levothyroxine 25 mcg tablet 25 mcg PO DAILY 06/10/16 04/20/24 History montelukast 10 mg tablet 10 mg PO DAILY 06/10/16 04/20/24 H istory rizatriptan 10 mg tablet (Maxalt) 10 mg PO ONCE PRN Migraine Sympto ms 05/28/17 04/20/24 History zolpidem 10 mg tablet (Ambien) 10 mg PO QHS 05/28/17 04/20/24 His tory Handicap Placcard #1 ea 09/07/17 04/20/24 Rx omalizumab 150 mg/mL subcutaneous 300 mg (2 mL) subcut Q4W #2 mL 04/20/24 Rx syringe (Xolair) folic acid 20 mg capsule 20 mg PO DAILY supplement 09/03/20 04/20/24 History albuterol sulfate 1.25 mg/3 mL 1.25 mg (3 mL) inhalation Q4H PRN 07/10/21 04/20/24 Rx solution for nebulization COPD J44.9 #180 vials hydrocodone-acetaminophen 5-325mg 1 tab PO BID PRN PRN pain 4 04/20/24 History 5mg-325mg metoprolol succinate 50 mg 100 mg PO DAILY 05/08/23 04/20/24 History tablet,extended release 24 hr sertraline 50 mg tablet 75 mg PO DAILY 05/08/23 04/20/24 H istory prednisone 10 mg tablet 10 mg PO DAILY 08/23/23 04/20/24 H istory Held on 08/26/23. Instructions: not needed at this time albuterol sulfate 90 mcg/actuation 2 puff inhalation Q4H PRN 04/20/24 Rx aerosol inhaler (Ventolin HFA) shortness of breath #1 device budesonide-formoterol HFA 160 2 inh inhalation BID #1 ea 5 04/20/24 Rx mcg-4.5 mcg/actuation aerosol inhaler (Symbicort) hydroxychloroquine 200 mg tablet mg PO 03/22/24 04/20/24 History methotrexate sodium 2.5 mg tablet 20 mg PO QWEEK 03/22/24 04/20/24 History tiotropium bromide 2.5 2 inh inhalation QDAY #1 ea 04/20/24 Rx mcg/actuation mist for inhalation (Spiriva Respimat) warfarin 5 mg tablet 5 mg PO QDAY 04/20/24 04/20/24 His tory Have you fallen in the past year?: Yes PFSH PFSH Medical History Spinal cord stimulator status Depression Pneumonia Hypoxia Fatigue Shortness of breath Asthma COPD (chronic obstructive pulmonary disease) Allergic rhinitis Postnasal drip Cough HTN (hypertension) BMI 37.0-37.9, adult Hypothyroidism Acute asthma exacerbation Home Medications ???Medication ???Instructions ???Recorded ???Last Taken ???Type levothyroxine 25 mcg tablet 25 mcg PO DAILY 06/10/16 05/30/16 History montelukast 10 mg tablet 10 mg PO DAILY 06/10/16 06/10/16 0 8:00 History rizatriptan 10 mg tablet (Maxalt) 10 mg PO ONCE PRN Migraine Sympto ms 05/28/17 Unknown History zolpidem 10 mg tablet (Ambien) 10 mg PO QHS 05/28/17 Unknown Hist ory Handicap Placcard #1 ea 09/07/17 Unknown Rx omalizumab 150 mg/mL subcutaneous 300 mg (2 mL) subcut Q4W #2 mL Unknown Rx syringe (Xolair) folic acid 20 mg capsule 20 mg PO DAILY supplement 09/03/20 Unknown History albuterol sulfate 1.25 mg/3 mL 1.25 mg (3 mL) inhalation Q4H PRN 07/10/21 Unknown Rx solution for nebulization COPD J44.9 #180 vials hydrocodone-acetaminophen 5-325mg 1 tab PO BID PRN PRN pain 4 Unknown History 5mg-325mg metoprolol succinate 50 mg 100 mg PO DAILY 05/08/23 Unknown H istory tablet,extended release 24 hr sertraline 50 mg tablet 75 mg PO DAILY 05/08/23 Unknown Hi story prednisone 10 mg tablet 10 mg PO DAILY 08/23/23 Unknown Hi story Held on 08/26/23. Instructions: not needed at this time albuterol sulfate 90 mcg/actuation 2 puff inhalation Q4H PRN Unknown Rx aerosol inhaler (Ventolin HFA) shortness of breath #1 device budesonide-formoterol HFA 160 2 inh inhalation BID #1 ea 5 Unknown Rx mcg-4.5 mcg/actuation aerosol inhaler (Symbicort) hydroxychloroquine 200 mg tablet mg PO 03/22/24 Unknown History methotrexate sodium 2.5 mg tablet 20 mg PO QWEEK 03/22/24 Unknown H istory tiotropium bromide 2.5 2 inh inhalation QDAY #1 ea U (more content not included)... Normal [facility] Prothrombin Time w/INRon INR Coag (PPP) [Relative time] 3.2 {INR} Normal [facility] Comment on above: Performed By: #### L 501.5208 #### [facility] [address] [place], [address] PT Coag (PPP) [Time] 33.2 s High 11.7-14.9 [facility] Comment on above: Performed By: #### L 501.5200 #### [facility] [address] [place], [address] CBC W/Diff, Automatedon 04-01 Absolute Lymph 1.00 X10 3/uL Normal 0.83-4.51 [facility] Comment on above: Performed By: #### L 501.5200 #### [facility] [address] [place], [address] Absolute Neut 6.3 X10 3/uL Normal 2.0-7.7 [facility] Comment on above: Performed By: #### L 501.5200 #### [facility] [address] [place], [address] Basophils/100 WBC (Bld) 0.4 % Normal 0-1 [facility] Comment on above: Performed By: #### L 501.5200 #### [facility] [address] [place], [address] Eosinophils/100 WBC (Bld) 0.1 % Normal 0-5 [facility] Comment on above: Performed By: #### L 501.5200 #### [facility] [address] [place], [address] Erythrocyte distribution width (RBC) [Ratio] 14.6 % Normal 11.6-14.6 [facility] Comment on above: Performed By: #### L 501.5200 #### [facility] [address] [place], [address] Hematocrit (Bld) [Volume fraction] 41.0 % Normal 37-47 [facility] Comment on above: Performed By: #### L 501.5200 #### [facility] [address] [place], [address] Hemoglobin (Bld) [Mass/Vol] 13.1 g/dL Normal 12.0-15.0 [facility] Comment on above: Performed By: #### L 501.5200 #### [facility] [address] [place], [address] IG% 0.900 Normal 0.0-0.9 [facility] Comment on above: Result Comment: IG% - Immature Granulocytes (promyelocytes, myelocytes and metamyelocytes) > 1% indicates that a LEFT SHIFT is Present. Performed By: #### L 501.5200 #### [facility] [address] [place], [address] Lymphocytes/100 WBC (Bld) 12.5 % Low 19-41 [facility] Comment on above: Performed By: #### L 501.5200 #### [facility] [address] [place], [address] MCH (RBC) [Entitic mass] 31.3 pg Normal 27.0-32.0 [facility] Comment on above: Performed By: #### L 501.5200 #### [facility] [address] [place], [address] MCHC (RBC) [Mass/Vol] 32.0 g/dL Normal 32-36 [facility] Comment on above: Performed By: #### L 501.5200 #### [facility] [address] [place], [address] MCV (RBC) [Entitic vol] 97.9 fL Normal 81-99 [facility] Comment on above: Performed By: #### L 501.5200 #### [facility] [address] [place], [address] Monocytes/100 WBC (Bld) 7.9 % Normal 0-10 [facility] Comment on above: Performed By: #### L 501.5200 #### [facility] [address] [place], [address] Neutrophils/100 WBC (Bld) 78.2 % High 47-70 [facility] Comment on above: Performed By: #### L 501.5200 #### [facility] [address] [place], [address] Nucleated RBC (Bld) [#/Vol] 0 10*3/uL Normal 0-5 [facility] Comment on above: Performed By: #### L 501.5200 #### [facility] [address] [place], [address] Platelet mean volume (Bld) [Entitic vol] 11.2 fL Normal 6.2-12.0 [facility] Comment on above: Performed By: #### L 501.5200 #### [facility] [address] [place], [address] Platelets (Bld) [#/Vol] 224 10*3/uL Normal 150-450 [facility] Comment on above: Performed By: #### L 501.5200 #### [facility] [address] [place], [address] RBC (Bld) [#/Vol] 4.19 10*6/uL Low 4.2-5.4 [facility] Comment on above: Performed By: #### L 501.5200 #### [facility] [address] [place], [address] RDW SD 52.3 fl High 35.1-43.9 [facility] Comment on above: Performed By: #### L 501.5200 #### [facility] [address] [place], [address] WBC (Bld) [#/Vol] 8.0 10*3/uL Normal 4.4-11.0 [facility] Comment on above: Performed By: #### L 501.5200 #### [facility] [address] [place], [address] Chest without Contraston Chest without Contrast [facility] Imaging Services [address] [place] [address] Chest without Contrast MR#: [id number] Acct: [id number] Name: TEAGAN VAUGHAN Rep #: [id number] : 1950 F 73 From: Ariel neumann MD PCP: Dr. Tiffanie Sharma MD Status: REG CLI Study: Chest without Contrast Date of Exam: 04/14/24 Exam# [id number] Ordering Dr: Trav Neves DO PROCEDURE: CHEST WITHOUT CONTRAST REASON FOR EXAM: Follow-up for treated lung cancer. TECHNIQUE: Chest CT without contrast. COMPARISON: Comparison is made with prior examination dated December 20, 2023. FINDINGS: Hardware: None. Lymph nodes: No mediastinal hilar or axillary lymphadenopathy. Heart and Vasculature: Normal heart size. No pericardial effusion. Atherosclerotic calcifications of the thoracic aorta. Thoracic aorta and pulmonary arteries have normal contours; noncontrast technique limits evaluation. Coronary Artery Calcifications: Present Lungs and Airways: Minimal residual increased markings in the posterior medial aspect of the left upper lobe as well as in the superior segment of the left lower lobe. This may represent post radiation changes. Stable 6 mm nodule in the posterior aspect of the left lower lobe as seen on axial image number 70 Pleura: No pleural effusion. No pneumothorax. Upper Abdomen: Small hiatal hernia. Bones: Bone windows are unremarkable. CT/Chest without Contrast IMPRESSION: Mild residual increased markings in the posterior medial aspect of the left upper lobe as well as in the superior segment of the left lower lobe. Stable 6 mm nodule in the left lower lobe as seen on axial image number 70 One or more dose reduction techniques were used (e.g., Automated exposure control, adjustment of the mA and/or kV according to patient size, use of iterative reconstruction technique). Reading Location: [facility] CC: Dr. Tiffanie Sharma MD; Dr. Trav Neves DO Medicare Contact Specialist: Signed Normal [facility] Comprehensive Metabolic Prof ilon 04-14-2024 Albumin [Mass/Vol] 3.4 g/dL Normal 3.2-5.0 [facility] Comment on above: Performed By: #### L 501.5200 #### [facility] [address] [place], [address] Albumin/Globulin [Mass ratio] 1.0 {ratio} Normal 0.9-2.4 [facility] Comment on above: Performed By: #### L 501.5200 #### [facility] [address] [place], [address] ALK P 75 U/L Normal 45-117 [facility] Comment on above: Performed By: #### L 501.5200 #### [facility] [address] [place], [address] ALT [Catalytic activity/Vol] 31 U/L Normal 13-56 [facility] Comment on above: Performed By: #### L 501.5200 #### [facility] [address] [place], [address] AST [Catalytic activity/Vol] 29 U/L Normal 15-37 [facility] Comment on above: Performed By: #### L 501.5200 #### [facility] [address] [place], [address] Bilirubin [Mass/Vol] 0.40 mg/dL Normal 0.20-1.00 [facility] Comment on above: Result Comment: For patients on eltrombopag therapy, use of Dimension Naches TBIL is not recommended. Performed By: #### L 501.5200 #### [facility] [address] [place], [address] BUN/CRE 15.2 RATIO Normal 10-20 [facility] Comment on above: Performed By: #### L 501.5200 #### [facility] [address] [place], [address] CA,Total 9.2 mg/dL Normal 8.5-10.1 [facility] Comment on above: Performed By: #### L 501.5200 #### [facility] [address] [place], [address] Chloride [Moles/Vol] 107 mmol/L Normal 98-107 [facility] Comment on above: Performed By: #### L 501.5200 #### [facility] [address] [place], [address] CO2 [Moles/Vol] 28.0 mmol/L Normal 21.0-32.0 [facility] Comment on above: Performed By: #### L 501.5200 #### [facility] [address] [place], [address] Creatinine [Mass/Vol] 0.79 mg/dL Normal 0.55-1.02 [facility] Comment on above: Result Comment: The validity of the calculated GFR GFRAA in patients over 70 years has not been determined. Clinical correlation is essential. Performed By: #### L 501.5200 #### [facility] [address] [place], [address] EST GFR - AA 92 mL/min Normal >60 [facility] Comment on above: Result Comment: Afri can [place] GFR Calc Performed By: #### L 501.5200 #### [facility] [address] [place], [address] GAP 5 Normal 5-15 [facility] Comment on above: Performed By: #### L 501.5200 #### [facility] [address] [place], [address] GFR/1.73 sq M.predicted among non-blacks MDRD (S/P/Bld) [Vol rate/Area] 76 mL/min/{1.73_m2} Normal >60 [facility] Comment on above: Result Comment: Non- GFR Calc Performed By: #### L 501.5200 #### [facility] [address] [place], [address] Globulin (S) [Mass/Vol] 3.5 g/dL Normal 2.2-4.2 [facility] Comment on above: Performed By: #### L 501.5200 #### [facility] [address] [place], [address] Glucose [Mass/Vol] 111 mg/dL High 74-106 [facility] Comment on above: Result Comment: Fast ing Glucose result from 100 to 125 mg/dL suggests IMPAIRED HOMEOSTASIS per A.D.A. criteria. Performed By: #### L 501.5200 #### [facility] [address] [place], [address] Potassium [Moles/Vol] 3.6 mmol/L Normal 3.5-5.1 [facility] Comment on above: Performed By: #### L 501.5200 #### [facility] [address] [place], [address] Sodium [Moles/Vol] 140 mmol/L Normal 136-145 [facility] Comment on above: Performed By: #### L 501.5200 #### [facility] [address] [place], [address] T PROT 6.9 g/dL Normal 6.4-8.2 [facility] Comment on above: Performed By: #### L 501.5200 #### [facility] [address] [place], [address] Urea nitrogen [Mass/Vol] 12 mg/dL Normal 7-18 [facility] Comment on above: Performed By: #### L 501.5200 #### [facility] [address] [place], [address] Prothrombin Time w/INRon INR Coag (PPP) [Relative time] 2.2 {INR} Normal [facility] Comment on above: Performed By: #### L 501.5200 #### [facility] [address] [place], [place], [address] PT Coag (PPP) [Time] 24.7 s High 11.7-14.9 [facility] Comment on above: Performed By: #### L 501.5200 #### [facility] [address] [place], [place], [address] Venous Duplex US, Unilateral on 04-12-2024 Venous Duplex US, Unilateral [facility] [address] [place] [address] Venous Duplex US, Unilateral 04/12/24 1246 MR#: [id number] Acct: [id number] Name: TEAGAN VAUGHAN Rep #: [id number] : 1950 73 From: Sanford Estrada MD Attending Dr: Dr. Tiffanie Sharma MD Status: REG CLI Ordering Dr: Tiffanie Sharma MD Date: 04/12/24 Location: [facility] Sex: F C Admitted: Reason For Study Reason For Study: LLE Swelling RIGHT LEFT CFV is compressible, spontaneous, phasic, competent GSV is normal. and demonstrates normal augmentation. CFV is compressible, spontaneous, phasic, competent, Procedure and demonstrates normal augmentation. This is a venous duplex using B-mode, color flow and FV is compressible, spontaneous, phasic, competent spectral Doppler. and demonstrates normal augmentation. Exam performed in department. POP V is compressible, spontaneous, phasic, competent The exam was diagnostic. and demonstrates normal augmentation. A preliminary report was called and/or faxed to T/P Trunk is compressible. Edith's office. PTV is compressible. LT PerV is compressible. VL/Venous Duplex US, Unilateral Interpretation Summary Deep veins of the left lower extremity are patent and compressible segmentally. There is no evidence of left lower extremity deep vein thrombosis. Valvular competence appears intact within the proximal deep venous system on the left . The left great saphenous vein appears patent and compressible segmentally. The right common femoral vein is patent and compressible . ___ Ordering Physician: Tiffanie Sharma Referring Physician: Tiffanie Sharma Performed By: Arun Perera T 04/12/242137 Date Sanford Estrada MD CC: Dr. Tiffanie Sharma MD Date Dictated: 04/12/24 1246 Date Transcribed: 04/12/242137 Medicare Contact Specialist: Signed Normal [facility] Pulmonary Visit Reporton Pulmonary Visit Report [facility] [place] [address] [place] [address] OFFICE VISIT Date of Service: 03/22/24 MR#: [id number] Acct: [id number] Name: TEAGAN VAUGHAN Rep #: [id number] : 1950 Provider: INDIRA Butts Age/Sex: 73/F Location: [facility] Status: Signed Assessment and Plan Assessment and Plan (1) Asthma-COPD overlap syndrome: Status: Chronic Plan: Deteriorated. I do not believe the patient is in an exacerbation of her asthma/COPD overlap syndrome today, however she is struggling to afford her maintenance inhaler. For this reason, I am going to discontinue Trelegy and transition her over to the combination of Symbicort and Spiriva. No additional testing at this time. The patient has been encouraged contact the office if symptoms are not well-controlled on the alternative medications. Otherwise, follow-up in the office in 6 months. Contact the office with any new or worsening symptoms in the meantime. (2) ISIDRO (obstructive sleep apnea): Status: Chronic Plan: Stable, however she does have significant leak. I believe this is because the patient has not recently received replacement supplies. I will be sending an order over to the [employer] to replace her headgear, tubing, mask and interface. AHI remains controlled. No indication for a retitration study. Follow-up in the office in 6 months. (3) Malignant neoplasm of lower lobe, left bronchus or lung: Status: Chronic Plan: Complicates exam, plan, care and prognosis. Serial imaging currently being managed by radiation oncology. Medications: New budesonide-formoterol 160-4.5 mcg/actuation (Symbicort) administer with spacer, rinse mouth after each use 2 inhalations inhalation BID 1 ea 11RF tiotropium bromide 2.5 mcg/actuation (Spiriva Respimat) administer at approximately the same time(s) each day 2 inhalations inhalation QDAY 1 ea 6RF Refilled albuterol sulfate 90 mcg/actuation (Ventolin HFA) 2 puffs inhalation Q4H PRN 1 device 6RF shortness of breath Discontinued bypufuoqnom-mtdmjoyiq-uld anter 100-62.5-25 mcg (Trelegy Ellipta) Discontinued Reason: Order Changed 1 inh inhalation DAILY 60 ea 6RF HPI HPI Comments Details: This patient presents to the office today for follow-up of her asthma/COPD overlap syndrome complicated by obstructive sleep apnea and non-small cell lung cancer. She is in wheelchair and currently on room air. She has not recently been seen in the ED or urgent care for any respiratory illness. She has not recently required antibiotics or steroids for any breathing problems. She is compliant with the use of Trelegy 1 puff daily. She does report rinsing her mouth out after each use. She denies any medication side effect such as sore throat or thrush. She is concerned because the Trelegy is expensive, she is asking for an alternative. She is also compliant with Singulair daily and Xolair monthly. She uses her albuterol rescue inhaler every morning routinely. She has shortness of breath on exertion. She has and occasional dry cough. Currently she denies any wheezing, chest tightness, chest pain or palpitations. She also denies any fever, chills or body aches. If you recall, she is a previous smoker. She quit smoking completely approximately 15 years ago. She reports excellent compliance with her Pap device. She wakes up feeling rested and refreshed. She has noticed an increase in mask leaks over the past few weeks. She admits that she has not received any replacement supplies in several months. She is not having difficulty with dry mouth. She is not requiring naps. She is not having morning headaches. Compliance report for the past 30 days shows 90% compliance with an average use of 6 hours and 20 minutes per night. Current setting is 16/12 cm of water with a residual AHI 0.5 events per hour. Leaks do appear to be somewhat of an issue. Intake Vital Signs 11/18/23 12:59 12/23/23 11:06 03/10/24 12:30 03/22/24 08:11 Height 5 ft 5 in 5 ft 5 in 5 ft 5 in 5 ft 5 in Weight: 251 lb BMI 41.8 BP 165/89 H Blood Pressure Location Lt brachial Position Sitting Respiration 18 Pulse 69 Pulse Source Monitor Temp 97.3 F L Temperature Source Temporal Artery Pulse Oximetry (%) 97 Oxygen Delivery Method room air Intake Visit Reasons: 6 M FU Chief Complaint: xolair [employer] Required: No DME Vendor: [employer] Accompanied by: Self Allergies No Known Allergies Allergy (Verified 03/22/24 10:24) Medications ???Medication ???Instructions ???Recorded ???Confirmed ???Type levothyroxine 25 mcg tablet 25 mcg PO DAILY 06/10/16 03/22/24 History montelukast 10 mg tablet 10 mg PO DAILY 06/10/16 03/22/24 History rizatriptan 10 mg tablet (Maxalt) 10 mg PO ONCE PRN Migraine Symptoms 05/28/17 03/22/24 H (more content not included)... Normal [facility] T4 Free Directon 02-01-2024 T4 FREE DIRECT 1.25 ng/dL Normal 0.76-1.46 [facility] Comment on above: Performed By: #### L 100.0100, L500.4050 #### [facility] [place], [address] Thyroid Stim Hormone (TSH)on 02-01-2024 TSH 2.130 uIU/mL Normal 0.358-3.74 0 [facility] Comment on above: Performed By: #### L 100.0100, L500.4050 #### [facility] [place], [address] CNOVon 10-19-2023 CNOV Office Visit (UCWSTR ) ----- TEAGAN VAUGHAN ([id number]) 1950 F Date Time Provider Department 10/19/23 1:15 PM YEMI MILAN RUST During your visit today, we recorded the following information about you: Temperature Pulse Respiration Blood pressure 97.7 degrees 85/minute 18/minute 148/84 Weight 112.9 kg Yemi Milan APRN.[employer] 10/19/2023 2:00 PM Signed Subjective HPI Nontoxic-appearing female presents urgent care chief complaint pain swelling and redness right arm. Duration of symptoms 3 days. Associated symptoms listed above. States redness is spreading. No OTC medications. States she has a small cat at home and has been scratched multiple times on her arm. Presents today for evaluation. Overall feels well. No numbness no tingling. No decrease sensation. No joint pain or weakness. Denies any fever body aches chills productive cough chest pain shortness of breath pleuritic pain hemoptysis nausea vomiting abdominal pain change in bowel or bladder habits. Past medical history prescription medication use and allergies reviewed. Denies any kidney disease. .Patient presents with: red spot of right forearm: X 3 days PAST MEDICAL HISTORY No date: Asthma PAST SURGICAL HISTORY No date: APPENDECTOMY No date: PAST SURGICAL HISTORY OF Comment: TMJ No date: TOTAL ABDOMINAL HYSTERECT W/WO RMVL TUBE OVARY ALLERGIES Seasonal Allergies MEDICATIONS ELIQUIS 5 mg tab(s) Take 1 tablet by mouth every 12 hours. TRELEGY ELLIPTA 100-62.5-25 mcg inhalation powder inhale 1 puff by mouth and into the lungs once daily predniSONE (DELTASONE) 10 mg tablet Take 4 tabs daily for 3 days, then 2 tabs daily for 3 days, then 1 tab daily for 3 days with food. folic acid 1 mg tablet Take 2 [...] as needed. gabapentin (NEURONTIN) 300 mg capsule (Patient not [...] Topics Alcohol use: No Drug use: No BP 148/84 Pulse 85 Temp 36.5 ?C (97.7 ?F) (Tympanic) Resp 18 Wt 112.9 kg (248 lb 14.4 oz) SpO2 97% BMI 40.17 kg/m? Review of Systems Constitutional: Negative for chills, fever and malaise/fatigue. HENT: Negative for congestion, ear discharge, ear pain, sinus pain and sore throat. Eyes: Negative for blurred vision, pain, discharge and redness. Respiratory: Negative for cough, hemoptysis, sputum production, shortness of breath, wheezing and stridor. Cardiovascular: Negative for chest pain. Gastrointestinal: Negative for abdominal pain, diarrhea, nausea and vomiting. Musculoskeletal: Negative for joint pain and myalgias. Skin: Negative for itching and rash. Neurological: Negative for dizziness and headaches. Objective Physical Exam Constitutional: General: She is not in acute distress. Appearance: She is not toxic-appearing. HENT: Head: Normocephalic. Nose: Nose normal. Eyes: Pupils: Pupils are equal, round, and reactive to light. Cardiovascular: Rate and Rhythm: Normal rate. Pulmonary: Effort: Pulmonary effort is normal. No respiratory distress. Breath sounds: No wheezing or rales. Chest: Chest wall: No tenderness. Musculoskeletal: Cervical back: Normal range of motion. Skin: General: Skin is warm and dry. Comments: Small abrasion and skin noted. 3 cm x 3 cm area of induration noted. No fluctuance. No remote redness. Neurological: General: No focal deficit present. Mental Status: She is alert. ASSESSMENT/PLAN: 1. Cellulitis (more content not included)... Normal [facility] CNOVon 05-08-2023 CNOV Office Visit (UCWSTR ) ----- TEAGAN VAUGHAN ([id number]) 1950 F Date Time Provider Department 05/08/23 1:45 PM DOMO LESLIE RUST During your visit today, we recorded the following information about you: Temperature Pulse Respiration Weight 97 degrees 110/minute 22/minute 109.4 kg Domo Leslie MD 05/08/2023 1:53 PM Signed [facility] Care Triage Note: [facility] with complaint of shortness of breath. She was seen 6 days ago and prescribed doxycycline and prednisone for COPD/asthma exacerbation. She is not feeling better with continued shortness of breath. She presents for evaluation again when x-ray is not available. Pulse ox was 79% when roomed. Further evaluation in the emergency room recommended today. Report sent to [facility] ER by [facility]. Pulse 110 Temp 36.1 ?C (97 ?F) Resp 22 Wt 109.4 kg (241 lb 2.9 oz) SpO2 (!) 79% BMI 38.93 kg/m? Allergies As of Date: 05/08/2023 Noted Allergy Reaction SEASONAL ALLERGIES 03/03/2017 5 - Intolerance Date Reviewed: 05/02/2023 Reviewed by: Tanisha Colmenares MA - Fully Assessed Primary Visit Diagnosis:SOB (shortness of breath) [R06.02] Other Visit Diagnosis:Hypoxia [R09.02] Prescriptions as of 05/08/2023 - ELIQUIS 5 mg tab(s) Take 1 tablet by mouth every 12 hours. - TRELEGY ELLIPTA 100-62.5-25 mcg inhalation powder inhale 1 puff by mouth and into the lungs once daily - doxycycline (VIBRA-TABS) 100 mg tablet Take 1 tablet by mouth two times a day for 10 days. - predniSONE (DELTASONE) 10 mg tablet Take 4 tabs daily for 3 days, then 2 tabs daily for 3 days, then 1 tab daily for 3 days with food. - gabapentin (NEURONTIN) 300 mg capsule - folic acid 1 mg tablet Take 2 mg by mouth once daily. - hydrOXYchloroQUINE (PLAQUENIL) 200 mg tablet Take 200 mg by mouth twice daily. - methotrexate 2.5 mg tablet Take 6 tablets by mouth one time a week. - montelukast (SINGULAIR) 10 mg tablet Take 10 mg by mouth daily at bedtime. - lansoprazole (PREVACID) 15 mg capsule Take 15 mg by mouth once daily. - metoprolol tartrate, short acting, (LOPRESSOR) 50 mg tablet Take 50 mg by mouth twice daily. - ACLIDINIUM BROMIDE (TUDORZA PRESSAIR INHALATION) Inhale as instructed. - albuterol (PROVENTIL) 2.5 mg /3 mL (0.083 %) nebulizer solution Use 3 mL via nebulizer every 6 hours as needed for Wheezing/Shortness of Breath. 1 vial contains 3 ml. - Nebulizer 1 Units every 6 hours as needed (wheezing or SOB). NEBULIZER FOR HOME USE. DX: acute bronchitis, asthma - budesonide-formoterol (SYMBICORT) 160-4.5 mcg/actuation inhaler Inhale 2 Puffs as instructed twice daily. - levothyroxine (SYNTHROID) 25 mcg tablet Take 25 mcg by mouth daily before breakfast. - albuterol HFA (VENTOLIN HFA) 90 mcg/Actuation INHALATION inhaler Inhale 2 Puffs as instructed every 6 hours as needed. Problem List As Of Date 05/08/2023 Noted Resolved Asthma [J45.909] 12/19/2011 Hypothyroidism [E03.9] 12/19/2011 Encounter Status:Closed by DOMO LESLIE on 05/08/23 [facility] CNOVon 05-02-2023 CNOV Office Visit (UCTR ) ----- TEAGAN VAUGHAN ([id number]) 1950 F Date Time Provider Department 05/02/23 11:30 AM EILEEN PHILLIPS RUST During your visit today, we recorded the following information about you: Temperature Pulse Respiration Blood pressure 97.5 degrees 100/minute 22/minute 130/88 Weight 109.3 kg Eileen Phillips APRN.CHELLY 05/02/2023 11:53 AM Signed This note was created using [employer]. Subjective Teagan Vaughan is a 72 year old female. 72 year old female with PMH COPD, asthma, and thyroid presents for illness. Acute onst approximately one week ago + headache +fever +chills +cough Productive sputum +fatigue Winded and hard to take deep breath at times. +wheezing Denies body aches Denies CP The history is provided by the patient. No world language teacher was used. URI She complains of cough, [...] state. Neurological: Positive for headaches. Negative for dizzin (more content not included)... Normal [facility] CNOVon 12-03-2022 CNOV Office Visit (UCWSTR ) ----- TEAGAN VAUGHAN ([id number]) 1950 F Date Time Provider Department 12/03/22 10:00 AM ALLYSSA TAMWSTR During your visit today, we recorded the following information about you: Temperature Pulse Respiration Blood pressure 97.8 degrees 82/minute 16/minute 126/82 Weight 109.9 kg LEEROY Jennings 12/03/2022 11:49 AM Signed Subjective HPI HPI Teagan Vaughan is a [...] abnormality. Dictated by : MD Allyssa ROBINS APRN.Allyssa Perez APRN.CHELLY 12/03/2022 11:35 AM Signed ASSESSMENT/PLAN: 1. Sinobronchitis - ICD9: 473.9, 490, ICD10: J32.9, J40 (primary diagnosis) Start prednisone today, if s/s persist or worsen fill/take antibiotic prescription. - Supportive care with plenty of fluids, rest, and analgesia prn. - Follow up in 3-5 days if symptoms persist or worsen. -If you experience chest pain/shortness of breath go to ER - DOXYCYCLINE HYCLATE 100 MG TABLET Allergies As of Date: 12/03/2022 Noted Allergy Reaction SEASONAL ALLERGIES 03/03/2017 5 - Intolerance Date Reviewed: 12/03/2022 Reviewed by: Allyssa Singletary APRN.PAINTINGS RESTORER - Fully Assessed Reason for Visit: Cough [28] Cmt: Cough and congestion days x5 Primary Visit Diagnosis:Sinobronchitis [J32.9, J40] Other Visit Diagnosis:Rhonchi at both lung bases [R09.89] Order(s):XR CHEST 2V FRONTAL/LAT [[id number]] Order #: [id number]. #: (more content not included)... Normal [facility] XR CHEST 2V FRONTAL/LATon XR CHEST 2V FRONTAL/LAT * * *Final Report* * * DATE OF EXAM: Dec 03 2022 11:10AM WOX 5291 - XR CHEST 2V FRONTAL/LAT / PROCEDURE REASON: Rhonchi at both lung bases * * * * Physician Interpretation * * * * EXAMINATION: CHEST RADIOGRAPH (2 VIEW FRONTAL and LATERAL) CLINICAL HISTORY: Rhonchi at both lung bases MQ: XC2_6 EXAM DATE/TIME: 12/03/2022 11:10 AM COMPARISON: Chest radiograph 02/17/2022 RESULT: Lines, tubes, and devices: None. Lungs and pleura: No consolidation. No lung mass. No pleural effusion. No pneumothorax. Minimal bibasilar atelectasis. Cardiomediastinal silhouette: Normal cardiomediastinal silhouette. Bones and soft tissues: Unremarkable. IMPRESSION: No acute radiographic abnormality. Medicare Contact Specialist: PSCB Transcribe Date/Time: Dec 03 2022 11:16A Dictated by : SAMREEN RODRIGUES MD This examination was interpreted and the report reviewed and electronically signed by: SAMREEN RODRIGUES MD on Dec 03 2022 11:17AM EST [id number] Normal [facility] XR Chest PA and Lateralon IMPRESSION: No acute radiographic abnormality. Medicare Contact Specialist: MICA Transcribe Date/Time: Dec 03 2022 11:16A Dictated by : SAMREEN RODRIGUES MD This examination was interpreted and the report reviewed and electronically signed by: SAMREEN RODRIGUES MD on Dec 03 2022 11:17AM [facility] DIVISION OF RADIOLOGY * * *Final Report* * * DATE OF EXAM: Dec 03 2022 11:10AM WOX 5291 - XR CHEST 2V FRONTAL/LAT / PROCEDURE REASON: Rhonchi at both lung bases * * * * Physician Interpretation * * * * EXAMINATION: CHEST RADIOGRAPH (2 VIEW FRONTAL & LATERAL) CLINICAL HISTORY: Rhonchi at both lung bases MQ: XC2_6 EXAM DATE/TIME: 12/03/2022 11:10 AM COMPARISON: Chest radiograph 02/17/2022 RESULT: Lines, tubes, and devices: None. Lungs and pleura: No consolidation. No lung mass. No pleural effusion. No pneumothorax. Minimal bibasilar atelectasis. Cardiomediastinal silhouette: Normal cardiomediastinal silhouette. Bones and soft tissues: Unremarkable. DIVISION OF RADIOLOGY Provider, [facility] - 12/03/2022 * * *Final Report* * * DATE OF EXAM: Dec 03 2022 11:10AM WOX 5291 - XR CHEST 2V FRONTAL/LAT / PROCEDURE REASON: Rhonchi at both lung bases * * * * Physician Interpretation * * * * EXAMINATION: CHEST RADIOGRAPH (2 VIEW FRONTAL & LATERAL) CLINICAL HISTORY: Rhonchi at both lung bases MQ: XC2_6 EXAM DATE/TIME: 12/03/2022 11:10 AM COMPARISON: Chest radiograph 02/17/2022 RESULT: Lines, tubes, and devices: None. Lungs and pleura: No consolidation. No lung mass. No pleural effusion. No pneumothorax. Minimal bibasilar atelectasis. Cardiomediastinal silhouette: Normal cardiomediastinal silhouette. Bones and soft tissues: Unremarkable. IMPRESSION IMPRESSION: No acute radiographic abnormality. Medicare Contact Specialist: MICA Transcribe Date/Time: Dec 03 2022 11:16A Dictated by : SAMREEN RODRIGUES MD This examination was interpreted and the report reviewed and electronically signed by: SAMREEN RODRIGUES MD on Dec 03 2022 11:17AM EST [facility] Radiology Study observation (narrative) [facility] XR Chest PA and LateralOrder ed By: Ccf Provider on 12-03-2022 [facility] SURG PATH REQUESTon 06-03-19 Case Report [facility] Comment on above: Result Comment: Surg ical Pathology Report Case: [id number] Authorizing Provider: Andrea Tinsley MD Collected: 06/02/2022 10:06 AM [facility]ing [facility] Received: 06/02/2022 10:07 AM [facility] Pathologist: Duane Soni MD Specimen: SURG PATH, LEFT LOWER LOBE LUNG NODULE Performed By: #### S URGP #### [facility] (DEFAULT) [address] [place] [address] Clinical History Pre-Op Diagnosis: L eft lower lobe lung nodule. [facility] Comment on above: Performed By: #### S URGP #### [facility] (DEFAULT) [address] [place] [address] [facility] Comment on above: Result Comment: This is a single block case. On immunostains performed at the outside institution (block A1), the tumor cells are positive for PanK, CK7, CK8, Napsin A and TTF1, but negative for p40, CK5/6, CK20, HepPar, RCC, ER and LA, supporting the diagnosis. Performed By: #### S URGP #### [facility] (DEFAULT) [address] [place] [address] Gross Description Normal [facility] Comment on above: Result Comment: The following materials are received from [facility], [address] [place] [id number], along with a copy of the surgical pathology report, one H&E slide and twelve non-H&E slides, labeled [id number]. Outside materials returned in 60 days under separate cover with our number recorded on them. Grosser for this case was: Jia Rogers For Immediate Release to [facility]'s [facility]? Yes Performed By: #### S URGP #### [facility] (DEFAULT) [address] [place] [address] Microscopic Description A microscopic examination was performed. Normal [facility] Comment on above: Performed By: #### S URGP #### [facility] (DEFAULT) [address] [place] [address] Pathologic Diagnosis Normal [facility] Comment on above: Result Comment: OUTS SAVANNA SLIDES: [id number] (03/16/2022) Left lower lobe lung nodule, CT-guided core biopsy: Adenocarcinoma of lung origin. Performed By: #### S URGP #### [facility] (DEFAULT) [address] [place] [address] No Panel InformationOrdered By: Ccf Provider on 02-17-2022 Radiology Result ACTIONABLE Abnormal [facility] Comment on above: This report contains an incidental or actionable finding. This finding may be a new finding separate from the reason your provider ordered the imaging test or it may be an already known finding that needs additional or continued follow-up. Because of this incidental or actionable finding, you may need another test (imaging or a different type of test). Please contact your provider for the next steps. XR Chest PA and LateralOrder ed By: Ccf Provider on 02-17-2022 Interpretation and review of laboratory results Abnormal [facility] XR Chest PA and Lateralon IMPRESSION: 1. Emphysema. 2. Irregular 3 cm [...] WO IVCON Time Frame: in 4 weeks COMMUNICATION:? Results will be communicated with the ordering provider via [employer] staff message by [employer] within 2 business days of report finalization. Medicare Contact Specialist: MICA Transcribe Date/Time: Dec 20 2022 11:38A Dictated by : TOYIN WOOD MD This examination was interpreted and the report reviewed and electronically signed by: TOYIN WOOD MD on Feb 17 2022 11:41AM [facility] DIVISION OF RADIOLOGY * * *Final Report* * * DATE OF EXAM: Feb 17 2022 11:22AM WOX 5291 - XR CHEST 2V FRONTAL/LAT / PROCEDURE REASON: Acute cough * * * * Physician Interpretation * * * * EXAMINATION: CHEST RADIOGRAPH (2 VIEW FRONTAL & LATERAL) CLINICAL HISTORY: Acute cough MQ: XC2_6 EXAM DATE/TIME: 02/17/2022 11:22 AM COMPARISON: Chest x-ray dated June 24, 2016 RESULT: Lines, tubes, and devices: None. Lungs and pleura: Irregular approximately 3 cm patchy opacity in the periphery of the right upper lung zone. Hyperlucent appearance of the upper lungs suggests underlying emphysema. No pleural effusion or pneumothorax. Cardiomediastinal silhouette: Normal cardiomediastinal silhouette. Bones and soft tissues: Degenerative changes are present within the thoracic spine. DIVISION OF RADIOLOGY Provider, [facility] - 02/17/2022 * * *Final Report* * * DATE OF EXAM: Feb 17 2022 11:22AM WOX 5291 - XR CHEST 2V FRONTAL/LAT / PROCEDURE REASON: Acute cough * * * * Physician Interpretation * * * * EXAMINATION: CHEST RADIOGRAPH (2 VIEW FRONTAL & LATERAL) CLINICAL HISTORY: Acute cough MQ: XC2_6 EXAM DATE/TIME: 02/17/2022 11:22 AM COMPARISON: Chest x-ray dated June 24, 2016 RESULT: Lines, tubes, and devices: None. Lungs and pleura: Irregular approximately 3 cm patchy opacity in the periphery of the right upper lung zone. Hyperlucent appearance of the upper lungs suggests underlying emphysema. No pleural effusion or pneumothorax. Cardiomediastinal silhouette: Normal cardiomediastinal silhouette. Bones and soft tissues: Degenerative changes are present within the thoracic spine. IMPRESSION IMPRESSION: 1. Emphysema. 2. Irregular 3 cm [...] WO IVCON Time Frame: in 4 weeks COMMUNICATION:? Results will be communicated with the ordering provider via [employer] staff message by [employer] within 2 business days of report finalization. Medicare Contact Specialist: MICA Transcribe Date/Time: Feb 17 2022 11:38A Dictated by : TOYIN WOOD MD This examination was interpreted and the report reviewed and electronically signed by: TOYIN WOOD MD on Feb 17 2022 11:41AM EST [facility] Radiology Study observation (narrative) [facility] CBC W/AUTO DIFF WBC (40712)O rdered By: Manufacturing Machine Operator on 08-08-2018 Basophils (Bld) [#/Vol] 0.0 {x10E3/uL} Normal 0.0-0.2 [facility] Work Phone: Comment on above: PATIENT NOT FASTINGP ERFORMED BY: [employer] Enznmr3474 [address] [facility] [id number] Basophils/100 WBC (Bld) 0 % Normal [facility] Work Phone: Comment on above: PATIENT NOT FASTINGP ERFORMED BY: [employer] Xqvuoy5606 [address] [facility] [id number] Eosinophils (Bld) [#/Vol] 0.0 {x10E3/uL} Normal 0.0-0.4 [facility] Work Phone: Comment on above: PATIENT NOT FASTINGP ERFORMED BY: [employer] Isaqyk0906 [facility] [id number] Eosinophils/100 WBC (Bld) 0 % Normal [facility] Work Phone: Comment on above: PATIENT NOT FASTINGP ERFORMED BY: [employer] Eszqhe8418 [address] [facility] [id number] Erythrocyte distribution width (RBC) [Ratio] 13.8 % Normal 12.3-15.4 [facility] Work Phone: Comment on above: PATIENT NOT FASTINGP ERFORMED BY: Vinspi6370 [address] [facility] [place] [id number] Hematocrit (Bld) [Volume fraction] 41.8 % Normal 34.0-46.6 [facility] Work Phone: Comment on above: PATIENT NOT FASTINGP ERFORMED BY: RADHA Melara Asuxay55[address] Road[address] [place] [id number] Hemoglobin (Bld) [Mass/Vol] 14.1 g/dL Normal 11.1-15.9 [facility] Work Phone: Comment on above: PATIENT NOT FASTINGP ERFORMED BY: [facility] Puekpv9804 Lam RoadNovant Health [facility]erners[facility] Centerin [place] [id number] Immature granulocytes (Bld) [#/Vol] 0.0 {x10E3/uL} Normal 0.0-0.1 [facility] Work Phone: Comment on above: PATIENT NOT FASTINGP ERFORMED BY: Kelton Ddulmh7430 Lam RoadGood [facility] [id number] Immature granulocytes/100 WBC (Bld) 0 % Normal [facility] Work Phone: Comment on above: PATIENT NOT FASTINGP ERFORMED BY: Kelton Ktqglt4264 [address] [facility] [place] [id number] Lymphocytes (Bld) [#/Vol] 1.6 {x10E3/uL} Normal 0.7-3.1 [facility] Work Phone: Comment on above: PATIENT NOT FASTINGP ERFORMED BY: [facility] Zsxyiz5504 [address] [place] [id number] Lymphocytes/100 WBC (Bld) 22 % Normal [facility] Work Phone: Comment on above: PATIENT NOT FASTINGP ERFORMED BY: RADHA JorgeCo Nfoyqi9600 [address] [facility] [place] [id number] MCH (RBC) [Entitic mass] 29.6 pg Normal 26.6-33.0 [facility] Work Phone: Comment on above: PATIENT NOT FASTINGP ERFORMED BY: Lab[employer] Uouqil8098 [address] [facility] [place] [id number] MCHC (RBC) [Mass/Vol] 33.7 g/dL Normal 31.5-35.7 [facility] Work Phone: Comment on above: PATIENT NOT FASTINGP ERFORMED BY: RADHA [facility] Uirjbc3533 Lam RoadDublin [place] [id number] MCV (RBC) [Entitic vol] 88 fL Normal 79-97 [facility] Work Phone: Comment on above: PATIENT NOT FASTINGP ERFORMED BY: RADHA [facility] Tbbbxd3988 [address] Roadbl[address] [place] [id number] Monocytes (Bld) [#/Vol] 0.7 {x10E3/uL} Normal 0.1-0.9 [facility] Work Phone: Comment on above: PATIENT NOT FASTINGP ERFORMED BY: RADHA [facility] Mlfilf6970 Lam RoadNovant [facility]ern[facility] Centerin [place] [id number] Monocytes/100 WBC (Bld) 9 % Normal [facility] Work Phone: Comment on above: PATIENT NOT FASTINGP ERFORMED BY: RADHA [facility] Qeukuf6341 [address] Roadbl[address] [place] [id number] Neutrophils (Bld) [#/Vol] 4.9 {x10E3/uL} Normal 1.4-7.0 [facility] Work Phone: Comment on above: PATIENT NOT FASTINGP ERFORMED BY: RADHA [facility] Tzegsq4344 [address] RoadDublin [place] [id number] Neutrophils/100 WBC (Bld) 69 % Normal [facility] Work Phone: Comment on above: PATIENT NOT FASTINGP ERFORMED BY: RADHA [facility] Ksvwci2867 [address] RoadDublin [place] [id number] Platelets (Bld) [#/Vol] 253 {x10E3/uL} Normal 150-450 [facility] Work Phone: Comment on above: PATIENT NOT FASTINGP ERFORMED BY: RADHA [facility] Aofqzk2007 [address] RoadD[address] [place] [id number] RBC (Bld) [#/Vol] 4.76 {x10E6/uL} Normal 3.77-5.28 [facility] Work Phone: Comment on above: PATIENT NOT FASTINGP ERFORMED BY: RADHA Raghav Lees6370 [address] [facility] [place] [id number] WBC (Bld) [#/Vol] 7.2 {x10E3/uL} Normal 3.4-10.8 [facility] Work Phone: Comment on above: PATIENT NOT FASTINGP ERFORMED BY: RADHA LabCoasim Dqmvdk9769 [address] [facility] [place] [id number] METABOLIC PANEL, COMPREHENSI VE (03199)Ordered By: Manufacturing Machine Operator on 08-08-2018 Albumin [Mass/Vol] 4.1 g/dL Normal 3.6-4.8 [facility] Internal Medicine Work Phone: Comment on above: PATIENT NOT FASTINGP ERFORMED BY: RADHA Raghav Hernandezlin6370 [address] [facility] [id number] Albumin/Globulin [Mass ratio] 1.6 {ratio} Normal 1.2-2.2 [facility] Internal Medicine Work Phone: Comment on above: PATIENT NOT FASTINGP ERFORMED BY: RADHA LabKatty HernandezZyrglo1606 [address] [facility] [place] [id number] ALP [Catalytic activity/Vol] 85 [iU]/L Normal 39-117 [facility] Work Phone: Comment on above: PATIENT NOT FASTINGP ERFORMED BY: RADHA [facility] Jeaklj8423 [address] [facility] [place] [id number] ALT [Catalytic activity/Vol] 27 [iU]/L Normal 0-32 [facility] Work Phone: Comment on above: PATIENT NOT FASTINGP ERFORMED BY: RADHA [facility] Fyppwh7283 [address] [facility]in [place] [id number] AST [Catalytic activity/Vol] 21 [iU]/L Normal 0-40 [facility] Work Phone: Comment on above: PATIENT NOT FASTINGP ERFORMED BY: RADHA [facility] Ofymak5617 [address] RoadDublin [place] [id number] Bilirubin [Mass/Vol] 0.4 mg/dL Normal 0.0-1.2 [facility] Work Phone: Comment on above: PATIENT NOT FASTINGP ERFORMED BY: CB [facility] Tozszd4275 [address] RoadDublin [place] [id number] Calcium [Mass/Vol] 9.4 mg/dL Normal 8.7-10.3 [facility] Work Phone: Comment on above: PATIENT NOT FASTINGP ERFORMED BY: CB [facility] Upbkkq7232 [address] RoadD[address] [place] [id number] Chloride [Moles/Vol] 100 mmol/L Normal 96-106 [facility] Work Phone: Comment on above: PATIENT NOT FASTINGP ERFORMED BY: CB [facility] Zuhvbo4358 [address] RoadDublin [place] [id number] CO2 [Moles/Vol] 26 mmol/L Normal 20-29 [facility] Internal Medicine Work Phone: Comment on above: PATIENT NOT FASTINGP ERFORMED BY: CB [facility] Gupmgl0247 [address] RoadDublin [place] [id number] Creatinine [Mass/Vol] 0.76 mg/dL Normal 0.57-1.00 [facility] Internal Medicine Work Phone: Comment on above: PATIENT NOT FASTINGP ERFORMED BY: CB [facility] Gkgfss0216 [address] RoadDublin [place] [id number] GFR/1.73 sq M predicted among blacks CKD-EPI (S/P/Bld) [Vol rate/Area] 95 mL/min/1.73 Normal [facility] Work Phone: Comment on above: PATIENT NOT FASTINGP ERFORMED BY: CB [facility] Ydnwgw5324 [address] RoadD[address] [place] [id number] GFR/1.73 sq M predicted among non-blacks CKD-EPI (S/P/Bld) [Vol rate/Area] 82 mL/min/1.73 Normal [facility] Work Phone: Comment on above: PATIENT NOT FASTINGP ERFORMED BY: RADHA [facility] Qkefaa5708 [address] RoadDublin [place] [id number] Globulin (S) [Mass/Vol] 2.6 g/dL Normal 1.5-4.5 [facility] Internal Medicine Work Phone: Comment on above: PATIENT NOT FASTINGP ERFORMED BY: CB [facility] Clbcfe8170 [address] RoadDublin [place] [id number] Glucose [Mass/Vol] 120 mg/dL Abnormal 65-99 [facility] Work Phone: Comment on above: PATIENT NOT FASTINGP ERFORMED BY: RADHA [facility] Cyxgqa3329 [address] RoadD[address] [place] [id number] Potassium [Moles/Vol] 4.2 mmol/L Normal 3.5-5.2 [facility] Work Phone: Comment on above: PATIENT NOT FASTINGP ERFORMED BY: RADHA [facility] Wjzaqq3383 Lam RoadNovant [facility]erners[facility] Centerin [place] [id number] Protein [Mass/Vol] 6.7 g/dL Normal 6.0-8.5 [facility] Work Phone: Comment on above: PATIENT NOT FASTINGP ERFORMED BY: RADHA [facility] Buyenb6210 [address] Roadbl[address] [place] [id number] Sodium [Moles/Vol] 140 mmol/L Normal 134-144 [facility] Work Phone: Comment on above: PATIENT NOT FASTINGP ERFORMED BY: RADHA [facility] Iyhmth7301 [address] RoadDuin [place] [id number] Urea nitrogen [Mass/Vol] 12 mg/dL Normal 8-27 [facility] Work Phone: Comment on above: PATIENT NOT FASTINGP ERFORMED BY: RADHA [facility] Diutow0532 [address] RoadDublin [place] [id number] Urea nitrogen/Creatinine [Mass ratio] 16 mg/mg Normal 12-28 [facility] Work Phone: Comment on above: PATIENT NOT FASTINGP ERFORMED BY: RADHA [facility] Uouhwh3451 [address] RoadD[address] [place] [id number] TSH (07991)Ordered By: [facility] Technician on 08-08-2018 TSH Qn 3.150 {uIU/mL} Normal 0.450-4.50 0 [facility] Work Phone: Comment on above: PATIENT NOT FASTINGP ERFORMED BY: RADHA [facility] Vghjrk9636 [facility] [id number] Blood Glucose , Office ([phone])Ordered By: Omayra Garcia on 04-28-2018 Glucose Glucometer molar conc (BldC) 106 1 Normal [facility] Work Phone: HgA1C , Office ([phone])Ordere d By: Omayra Garcia on 04-28-2018 Hemoglobin A1c/Hemoglobin.total mass fraction (Bld) 6.5 % Normal 4.6 - 7.1 [facility] Work Phone: CBC W/Diff, AutomatedOrdered By: Manufacturing Machine Operator on 04-21-2018 Absolute Neut 4.0 {X10_3/uL} Normal 2.0-7.7 [facility] Work Phone: Comment on above: [facility] [address] [place], [place], [phone] Basophils/100 WBC (Bld) 0.3 % Normal 0-1 [facility] Work Phone: Comment on above: [facility] [address] [place], [address] Eosinophils/100 WBC (Bld) 0.0 % Normal 0-5 [facility] Work Phone: Comment on above: [facility] [address] [place], [place], [phone] Erythrocyte distribution width Ratio (RBC) 14.4 % Normal 11.6-14.6 [facility] Work Phone: Comment on above: [facility] [address] [place], [address] Hematocrit Volume Fraction (Bld) 43.2 % Normal 37-47 [facility] Work Phone: Comment on above: [facility] [address] [place], [place], [phone] Hemoglobin mass conc (Bld) 13.7 g/dL Normal 12.0-15.0 [facility] Work Phone: Comment on above: [facility] [address] [place], [address] IM GRAN % 0.800 % Normal 0.0-0.9 [facility] Internal [facility] Work Phone: Comment on above: IG% - Immature Granu locytes (promyelocytes, myelocytes andmetamyelocytes) > 1% indicates that a LEFT SHIFT is Present. [facility] [address] [place], [address] Lymphocytes #/vol (Bld) 1.63 {X10_3/ul} Normal 0.83-4.51 [facility] Internal [facility] Work Phone: Comment on above: [facility] [address] [place], [address] Lymphocytes/100 WBC (Bld) 26.4 % Normal 19-41 [facility] Work Phone: Comment on above: [facility] [address] [place], [address] MCH Entitic mass (RBC) 29.3 pg Normal 27.0-32.0 [facility] Work Phone: Comment on above: [facility] [address] [place], [address] MCHC mass conc (RBC) 31.7 {g/gl} Abnormal 32-36 [facility] prehensive Internal Medicine Work Phone: Comment on above: [facility] [address] [place], [place], [phone] MCV Entitic volume (RBC) 92.3 fL Normal 81-99 [facility] Work Phone: Comment on above: [facility] [address] [place], [address] Monocytes/100 WBC (Bld) 7.1 % Normal 0-10 [facility] Work Phone: Comment on above: [facility] [address] [place], [address] Neutrophils/100 WBC (Bld) 65.4 % Normal 47-70 [facility] Work Phone: Comment on above: [facility] [address] [place], [address] Platelet mean volume Entitic volume (Bld) 11.2 fL Normal 6.2-12.0 Comprehensi ve Internal Medicine Work Phone: Comment on above: [facility] [address] [place], [address] Platelets #/vol (Bld) 229 10*3/uL Normal 150-450 [facility] Internal [facility] Work Phone: Comment on above: [facility] [address] [place], [address] RBC #/vol (Bld) 4.68 {M/mm3} Normal 4.2-5.4 Compreh ensive Internal Medicine Work Phone: Comment on above: [facility] [address] [place], [address] RDW SD 48.6 fL Abnormal 35.1-43.9 [facility] Work Phone: Comment on above: [facility] [address] [place], [address] WBC #/vol (Bld) 6.2 10*3/uL Normal 4.4-11.0 Comprehe nsive Internal Medicine Work Phone: Comment on above: [facility] [address] [place], [place], [address] Comprehensive Metabolic Prof ilOrdered By: Manufacturing Machine Operator on 04-21-2018 Comprehensive metabolic 2000 panel 1.0 {RATIO} Normal 0.9-2.4 Comprehensi ve Internal Medicine Work Phone: Comment on above: [facility] [address] [place], [place], [phone] Comprehensive metabolic 2000 panel 0.60 mg/dL Normal 0.20-1.00 Comprehensi ve Internal Medicine Work Phone: Comment on above: [facility] [address] [place], [place], [phone] Comprehensive metabolic 2000 panel 26 U/L Normal 15-37 Comprehensi ve Internal Medicine Work Phone: Comment on above: [facility] [address] [place], [place], [phone] Comprehensive metabolic 2000 panel 142 mmol/L Normal 136-145 Comprehensi ve Internal Medicine Work Phone: Comment on above: [facility] [address] [place], [place], [phone] Comprehensive metabolic 2000 panel 73 mL/min Normal Comprehensi ve Internal Medicine Work Phone: Comment on above: GFR Calc [facility] [address] [place], [place], [phone] Comprehensive metabolic 2000 panel 8.7 mg/dL Normal 8.5-10.1 Comprehensi ve Internal Medicine Work Phone: Comment on above: [facility] [address] [place], [place], [phone] Comprehensive metabolic 2000 panel 13 mg/dL Normal 7-18 Comprehensi ve Internal Medicine Work Phone: Comment on above: [facility] [address] [place], [place], [phone] Comprehensive metabolic 2000 panel 106 mmol/L Normal 98-107 Comprehensi ve Internal Medicine Work Phone: Comment on above: [facility] [address] [place], [address] Comprehensive metabolic 2000 panel 88 U/L Normal 45-117 Comprehensi ve Internal Medicine Work Phone: Comment on above: [facility] [address] [place], [place], [address] Comprehensive metabolic 2000 panel 3.6 g/dL Normal 2.2-4.2 Comprehensi ve Internal Medicine Work Phone: Comment on above: [facility] [address] [place], [place], [phone] Comprehensive metabolic 2000 panel 3.9 mmol/L Normal 3.5-5.1 Comprehensi ve Internal Medicine Work Phone: Comment on above: [facility] [address] [place], [address] Comprehensive metabolic 2000 panel 3.5 g/dL Normal 3.2-5.0 Comprehensi ve Internal Medicine Work Phone: Comment on above: [facility] [address] [place], [place], [address] Comprehensive metabolic 2000 panel 13.2 {RATIO} Normal 10-20 Comprehensi ve Internal Medicine Work Phone: Comment on above: [facility] [address] [place], [place], [address] Comprehensive metabolic 2000 panel 7.1 g/dL Normal 6.4-8.2 Comprehensi ve Internal Medicine Work Phone: Comment on above: [facility] [address] [place], [address] Comprehensive metabolic 2000 panel 60 mL/min Normal Comprehensi ve Internal Medicine Work Phone: Comment on above: Non- GFR Calc [facility] [address] [place], [place], [phone] Comprehensive metabolic 2000 panel 10 1 Normal 5-15 Comprehensi ve Internal Medicine Work Phone: Comment on above: [facility] [address] [place], [place], [phone] Comprehensive metabolic 2000 panel 113 mg/dL Abnormal 74-106 Comprehensi ve Internal Medicine Work Phone: Comment on above: Fasting Glucose resu lt from 100 to 125 mg/dLsuggests IMPAIRED HOMEOSTASIS per A.D.A. criteria.Please note revised GLUCOSE reference range odemvbdii64/02/2018. [facility] [address] [place], [place], [phone] Comprehensive metabolic 2000 panel 26.0 mmol/L Normal 21.0-32.0 Comprehensi ve Internal Medicine Work Phone: Comment on above: [place] [address] [place], [place], [phone] Comprehensive metabolic 2000 panel 0.98 mg/dL Normal 0.55-1.02 Comprehensi ve Internal Medicine Work Phone: Comment on above: The validity of the calculated GFR AND GFRAA in patients over70 years has not been determined. Clinical correlation isessential. [facility] [address] [place], [place], [phone] Comprehensive metabolic 2000 panel 33 U/L Normal 13-56 Comprehensi ve Internal Medicine Work Phone: Comment on above: [facility] [address] [place], [place], [phone] Free U2Wygrhpl By: Maricel green on 04-21-2018 T3 free mass conc 2.6 pg/mL Normal 2.18-3.98 Compreh ensive Internal Medicine Work Phone: Comment on above: [facility] [address] [place], [address] Lipid ProfileOrdered By: Sys tem Service Center Technician on 04-21-2018 Cholesterol in HDL mass conc 40 mg/dL Normal [facility] Work Phone: Comment on above: The drugs N-Acetylcy steine and Metamizole may falselydepress this assay. Reference Range HDL <40 mg/dL Low HDL Cholesterol HDL >or= 60 mg/dL High HDL Cholesterol [facility] [address] [place], [place], [phone] Cholesterol in LDL mass conc 112 mg/dL Normal 0-130 [facility] Work Phone: Comment on above: [facility] [address] [place], [place], [phone] Cholesterol in VLDL mass conc 29 mg/dL Normal 5-40 [facility] Work Phone: Comment on above: [facility] [address] [place], [place], [phone] Cholesterol mass conc 181 mg/dL Normal [facility] prehensive Internal Medicine Work Phone: Comment on above: <200 mg/dL Desirable 200-240 mg/dL Borderline >240 mg/dL High Risk [facility] [address] [place], [place], [phone] Triglyceride mass conc 147 mg/dL Normal [facility] Work Phone: Comment on above: The drugs N-Acetylcy steine and Metamizole may falselydepress this assay.Serum Triglycerides Reference Interval Normal <150 mg/dL Borderline high 150 - 199 mg/dL High 200 - 499 mg/dL Very High > or = 500 mg/dL [facility] [address] [place], [place], [phone] MicroalbOrdered By: Maricel morrison on 04-21-2018 Creatinine mass conc 181.00 mg/dL Normal [facility] Work Phone: Comment on above: [facility] [address] [place], [place], [phone] Creatinine mass conc 5.6 {mg/g_CRE} Normal [facility] Work Phone: Comment on above: [facility] [address] [place], [phone] Microalb 10.1 mg/L Normal [facility] Work Phone: Comment on above: [facility] [address] [place], [place], [phone] T4 Free DirectOrdered By: Sy stem Service Center Technician on 04-21-2018 T4 free mass conc 1.20 ng/dL Normal 0.76-1.46 Compreh ensive Internal Medicine Work Phone: Comment on above: [facility] [address] [place], [place], [phone] Thyroid Stim Hormone (TSH)Or dered By: Manufacturing Machine Operator on 04-21-2018 Thyrotropin Qn 2.90 {uIU/mL} Normal 0.358-3.74 Compreh ensive Internal Medicine Work Phone: Comment on above: [facility] [address] [place], [address] Urinalysis, CompleteOrdered By: Manufacturing Machine Operator on 04-21-2018 Protein mass conc (U) Negative Normal Com prehensive Internal Medicine Work Phone: Comment on above: How was Urine Obtain ed? [facility] [address] [place], [place], [phone] RBC #/vol (U) 0 SEEN Normal 0-5 Comprehensi ve Internal Medicine Work Phone: Comment on above: How was Urine Obtain ed? [facility] [address] [place], [address] Urinalysis complete panel - Urine 5-10 SEEN Normal 5-10 [facility] Work Phone: Comment on above: How was Urine Obtain ed? [facility] [address] [place], [address] Urinalysis complete panel - Urine Yellow Normal [facility] Work Phone: Comment on above: How was Urine Obtain ed? [facility] [address] [place], [address] Urinalysis complete panel - Urine Sl. Cloudy Normal [facility] Work Phone: Comment on above: How was Urine Obtain ed? [facility] [address] [place], [address] Urinalysis complete panel - Urine 0 SEEN Normal 0-5 [facility] Work Phone: Comment on above: How was Urine Obtain ed? [facility] [address] [place], [address] Urinalysis complete panel - Urine Negative Normal [facility] Work Phone: Comment on above: How was Urine Obtain ed? [facility] [address] [place], [address] Urinalysis complete panel - Urine Normal Normal [facility] Work Phone: Comment on above: How was Urine Obtain ed? [facility] [address] [place], [address] Urinalysis complete panel - Urine 5.0 1 Normal 5.0 - 8.0 [facility] Work Phone: Comment on above: How was Urine Obtain ed? [facility] [address] [place], [address] Urinalysis complete panel - Urine 1.020 1 Normal 1.002-1.03 0 [facility] Work Phone: Comment on above: How was Urine Obtain ed? [facility] [address] [place], [place], [phone] Allergen, Mini-RastOrdered B y: Manufacturing Machine Operator on 07-16-2017 Food allergen panel - Serum <0.10 Normal [facility] Work Phone: Comment on above: Performed at: - [address] [id number] Director: Ralph Dumont MD, Phone: [phone] [facility] (refer to re port for specific site)refer to report for address and phone number Food allergen panel - Serum 3.79 kU/L Abnormal [facility] Work Phone: Comment on above: [facility] (refer to re port for specific site)refer to report for address and phone number Food allergen panel - Serum 4.11 kU/L Abnormal [facility] Work Phone: Comment on above: [facility] (refer to re port for specific site)refer to report for address and phone number Food allergen panel - Serum 4.18 kU/L Abnormal [facility] Work Phone: Comment on above: [facility] (refer to re port for specific site)refer to report for address and phone number Food allergen panel - Serum 0.81 kU/L Abnormal [facility] Work Phone: Comment on above: [facility] (refer to re port for specific site)refer to report for address and phone number Food allergen panel - Serum 0.25 kU/L Abnormal [facility] Work Phone: Comment on above: [facility] (refer to re port for specific site)refer to report for address and phone number Food allergen panel - Serum 4.16 kU/L Abnormal [facility] Work Phone: Comment on above: [facility] (refer to re port for specific site)refer to report for address and phone number Food allergen panel - Serum 3.80 kU/L Abnormal [facility] Work Phone: Comment on above: [facility] (refer to re port for specific site)refer to report for address and phone number Food allergen panel - Serum 3.87 kU/L Abnormal [facility] Work Phone: Comment on above: [facility] (refer to re port for specific site)refer to report for address and phone number Food allergen panel - Serum Comment Normal [facility] Work Phone: Comment on above: Levels of Specific I gE Class Description of Class ----- < 0.10 0 Negative 0.10 - 0.31 0/I Equivocal/Low 0.32 - 0.55 I Low 0.56 - 1.40 II Moderate 1.41 - 3.90 III High 3.91 - 19.00 IV Very High 19.01 - 100.00 V Very High >100.00 Very High [facility] (refer to re port for specific site)refer to report for address and phone number Aspergillus AntibodiesOrdere d By: Manufacturing Machine Operator on 07-16-2017 Asp. niger Negative Normal [facility] Work Phone: Aspergillus Antibodies Negative Normal [facility] Work Phone: Comment on above: [facility] (refer to re port for specific site)refer to report for address and phone number CBC W/Diff, AutomatedOrdered By: Manufacturing Machine Operator on 07-16-2017 Absolute Lymph 1.29 {X10_3/ul} Normal 0.83-4.51 Compr ehensive Internal Medicine Work Phone: Absolute Neut 4.2 {X10_3/uL} Normal 2.0-7.7 Compreh ensive Internal Medicine Work Phone: Comment on above: [facility] [address] [place], [place], [phone] Basophils/100 WBC (Bld) 0.2 % Normal 0-1 [facility] Work Phone: Comment on above: [facility] [address] [place], [phone] Basophils/100 WBC Auto (Bld) 0.2 % Normal 0-1 [facility] Work Phone: Eosinophils/100 WBC (Bld) 0.2 % Normal 0-5 [facility] Work Phone: Comment on above: [facility] [address] [place], [address] Eosinophils/100 WBC Auto (Bld) 0.2 % Normal 0-5 [facility] Work Phone: Erythrocyte distribution width Auto Ratio (RBC) 14.2 % Normal 11.6-14.6 [facility] Work Phone: Erythrocyte distribution width Ratio (RBC) 14.2 % Normal 11.6-14.6 [facility] Work Phone: Comment on above: [facility] [address] [place], [address] Hematocrit Auto Volume Fraction (Bld) 43.8 % Normal 37-47 Comprehens avni Internal Medicine Work Phone: Hematocrit Volume Fraction (Bld) 43.8 % Normal 37-47 [facility] Work Phone: Comment on above: [facility] [address] [place], [address] Hemoglobin mass conc (Bld) 14.3 g/dL Normal 12.0-15.0 [facility] Work Phone: Comment on above: [facility] [address] [place], [address] IM GRAN % 0.300 % Normal 0.0-0.9 [facility] Work Phone: Comment on above: IG% - Immature Granu locytes (promyelocytes, myelocytes andmetamyelocytes) > 1% indicates that a LEFT SHIFT is Present. [facility] [address] [place], [address] Lymphocytes #/vol (Bld) 1.29 {X10_3/ul} Normal 0.83-4.51 [facility] Work Phone: Comment on above: [facility] [address] [place], [address] Lymphocytes/100 WBC (Bld) 21.2 % Normal 19-41 [facility] Work Phone: Comment on above: [facility] [address] [place], [address] Lymphocytes/100 WBC Auto (Bld) 21.2 % Normal 19-41 [facility] Work Phone: MCH Auto Entitic mass (RBC) 29.4 pg Normal 27.0-32.0 [facility] Work Phone: MCH Entitic mass (RBC) 29.4 pg Normal 27.0-32.0 [facility] Work Phone: Comment on above: [facility] [address] [place], [address] MCHC Auto mass conc (RBC) 32.6 {g/gl} Normal 32-36 [facility] Work Phone: MCHC mass conc (RBC) 32.6 {g/gl} Normal 32-36 [facility] prehensive Internal Medicine Work Phone: Comment on above: [facility] [address] [place], [address] MCV Auto Entitic volume (RBC) 90.1 fL Normal 81-99 [facility] Work Phone: MCV Entitic volume (RBC) 90.1 fL Normal 81-99 [facility] Work Phone: Comment on above: [facility] [address] [place], [address] Monocytes/100 WBC Auto (Bld) 9.4 % Normal 0-10 [facility] Work Phone: Comment on above: [facility] [address] [place], [address] Neutrophils/100 WBC (Bld) 68.7 % Normal 47-70 [facility] Work Phone: Comment on above: [facility] [address] [place], [address] Neutrophils/100 WBC Auto (Bld) 68.7 % Normal 47-70 [facility] Work Phone: Platelet mean volume Auto Entitic volume (Bld) 11.5 fL Normal 6.2-12.0 [facility] Work Phone: Platelet mean volume Entitic volume (Bld) 11.5 fL Normal 6.2-12.0 Comprehensi Internal Medicine Work Phone: Comment on above: [facility] [address] [place], [address] Platelets #/vol (Bld) 226 10*3/uL Normal 150-450 Co rust Internal Medicine Work Phone: Comment on above: [facility] [address] [place], [address] Platelets Auto #/vol (Bld) 226 10*3/uL Normal 150-450 [facility] Work Phone: RBC #/vol (Bld) 4.86 {M/mm3} Normal 4.2-5.4 Compreh ensive Internal Medicine Work Phone: Comment on above: [facility] [address] [place], [address] RBC Auto #/vol (Bld) 4.86 {M/mm3} Normal 4.2-5.4 Co rust Internal Medicine Work Phone: RDW SD 46.4 fL Abnormal 35.1-43.9 [facility] Internal Medicine Work Phone: Comment on above: [facility] [address] [place], [address] WBC #/vol (Bld) 6.1 10*3/uL Normal 4.4-11.0 Comprehe nsive Internal Medicine Work Phone: Comment on above: [facility] [address] [place], [address] WBC Auto #/vol (Bld) 6.1 10*3/uL Normal 4.4-11.0 [facility] prehensive Internal Medicine Work Phone: Immunoglobulin EOrdered By: Manufacturing Machine Operator on 07-16-2017 IgE Qn 140 {IU/mL} Abnormal 0-100 [facility] Work Phone: Comment on above: Performed at: - [address] [id number] Director: Ralph Dumont MD, Phone: [phone] [facility] (refer to re port for specific site)refer to report for address and phone number Office Visit: COPDon 017 Documentation of current medications (procedure) Done Invalid Interpretation Code [facility] [place] Work Phone: Protein mass conc Done Invalid Interpretation Code [facility] [place] Work Phone: Tobacco smoking status NHIS Never Invalid Interpretation Code [facility] [place] Work Phone: Tobacco smoking status [facility] Former smoker Invalid Interpretation Code [facility] [place] Work Phone: Tobacco use [facility] Former smoker Invalid Interpretation Code [facility] [place] Work Phone: CBC & PLATELETS (AUTO) [phone])Ordered By: Manufacturing Machine Operator on 09-28-2016 Erythrocyte distribution width Auto Ratio (RBC) 14.6 % Normal 12.3-15.4 [facility] Work Phone: Erythrocyte distribution width Ratio (RBC) 14.6 % Normal 12.3-15.4 [facility] Work Phone: Comment on above: PATIENT NOT FASTINGP ERFORMED BY: RADHA Lifesum6370 [facility] [id number] Hematocrit Auto Volume Fraction (Bld) 44.1 % Normal 34.0-46.6 Comprehens avni Internal Medicine Work Phone: Hematocrit Volume Fraction (Bld) 44.1 % Normal 34.0-46.6 [facility] Work Phone: Comment on above: PATIENT NOT FASTINGP ERFORMED BY: RADHA Lifesum6370 [facility] [id number] Hemoglobin mass conc (Bld) 14.2 g/dL Normal 11.1-15.9 [facility] Work Phone: Comment on above: PATIENT NOT FASTINGP ERFORMED BY: RADHA LabKatty Lees6370 [facility] [id number] MCH Auto Entitic mass (RBC) 29.0 pg Normal 26.6-33.0 [facility] Work Phone: MCH Entitic mass (RBC) 29.0 pg Normal 26.6-33.0 [facility] Work Phone: Comment on above: PATIENT NOT FASTINGP ERFORMED BY: RADHA LabKatty Lees6370 [facility] [id number] MCHC Auto mass conc (RBC) 32.2 g/dL Normal 31.5-35.7 [facility] Work Phone: MCHC mass conc (RBC) 32.2 g/dL Normal 31.5-35.7 Comp [facility] Internal Medicine Work Phone: Comment on above: PATIENT NOT FASTINGP ERFORMED BY: RADHA Hernandezlin6370 [facility] [id number] MCV Auto Entitic volume (RBC) 90 fL Normal 79-97 [facility] Work Phone: MCV Entitic volume (RBC) 90 fL Normal 79-97 [facility] Work Phone: Comment on above: PATIENT NOT FASTINGP ERFORMED BY: RADHA [facility] Qyktgs3637 [facility] [id number] Platelets #/vol (Bld) 261 {x10E3/uL} Normal 150-379 [facility] Work Phone: Comment on above: PATIENT NOT FASTINGP ERFORMED BY: RADHA [facility] Qoqhoz1922 [facility] [id number] Platelets Auto #/vol (Bld) 261 {x10E3/uL} Normal 150-379 [facility] Work Phone: RBC #/vol (Bld) 4.90 {x10E6/uL} Normal 3.77-5.28 Comp rehensive Internal Medicine Work Phone: Comment on above: PATIENT NOT FASTINGP ERFORMED BY: RADHA AniaKatty HernandezHgobli9407 [facility] [id number] RBC Auto #/vol (Bld) 4.90 {x10E6/uL} Normal 3.77-5.28 [facility] Work Phone: WBC #/vol (Bld) 6.8 {x10E3/uL} Normal 3.4-10.8 [facility] Work Phone: Comment on above: PATIENT NOT FASTINGP ERFORMED BY: RADHA LabKatty HernandezBpybia8740 [facility] [id number] WBC Auto #/vol (Bld) 6.8 {x10E3/uL} Normal 3.4-10.8 [facility] Work Phone: METABOLIC PANEL, COMPREHENSI VE ([phone])Ordered By: Manufacturing Machine Operator on 09-28-2016 Albumin mass conc 4.2 g/dL Normal 3.6-4.8 Compreh [facility] Internal Medicine Work Phone: Comment on above: PATIENT NOT FASTINGP ERFORMED BY: RADHA AniaKatty HernandezSqugrk7825 [facility] [id number] Albumin/Globulin mass ratio 1.6 {ratio} Normal 1.2-2.2 [facility] Internal Medicine Work Phone: Comment on above: PATIENT NOT FASTINGP ERFORMED BY: RADHA LabKatty HernandezEbqekn5734 [facility] [id number] ALP enzyme act/vol 84 [iU]/L Normal 39-117 Compre [facility] Internal Medicine Work Phone: Comment on above: PATIENT NOT FASTINGP ERFORMED BY: RADHA LabKatty HernandezJsfmqf8429 [facility] [id number] ALT enzyme act/vol 17 [iU]/L Normal 0-32 Compre [facility] Internal Medicine Work Phone: Comment on above: PATIENT NOT FASTINGP ERFORMED BY: RADHA [facility] Efqete9998 [facility] [id number] AST enzyme act/vol 16 [iU]/L Normal 0-40 Compre [facility] Work Phone: Comment on above: PATIENT NOT FASTINGP ERFORMED BY: RADHA [facility] M[address]be[address] Road[address] [place] [id number] Bilirubin mass conc 0.5 mg/dL Normal 0.0-1.2 Compr ensive Internal Medicine Work Phone: Comment on above: PATIENT NOT FASTINGP ERFORMED BY: CB [facility] [id number] Lam [address]blin [place] [id number] Calcium mass conc 9.5 mg/dL Normal 8.7-10.3 Compreh ensive Internal Medicine Work Phone: Comment on above: PATIENT NOT FASTINGP ERFORMED BY: RADHA [facility] [id number] [address] RoadNovant [facility]in [place] [id number] Chloride molar conc 99 mmol/L Normal 96-106 Compr ensive Internal Medicine Work Phone: Comment on above: PATIENT NOT FASTINGP ERFORMED BY: [facility] [id number] [address] RoadNovant Health [facility]in [place] [id number] CO2 molar conc 23 mmol/L Normal 18-29 Comprehens avni Internal Medicine Work Phone: Comment on above: PATIENT NOT FASTINGP ERFORMED BY: RADHA [facility] [id number] [address] RoadNov[facility]in [place] [id number] Creatinine mass conc 0.75 mg/dL Normal 0.57-1.[address] [facility] Work Phone: Comment on above: PATIENT NOT FASTINGP ERFORMED BY: CB [facility] [id number] Lam RoadDublin [place] [id number] GFR/1.73 sq M predicted among blacks CKD-EPI vol rate/area (S/P/Bld) 97 mL/min/1.73 Normal Comprehensiv e Internal Medicine Work Phone: Comment on above: PATIENT NOT FASTINGP ERFORMED BY: CB [facility] [id number] Lam RoadDublin [place] [id number] GFR/1.73 sq M predicted among non-blacks CKD-EPI vol rate/area (S/P/Bld) 85 mL/min/1.73 Normal [facility] Work Phone: Comment on above: PATIENT NOT FASTINGP ERFORMED BY: RADHA AniaKatty HernandezHiyleg7506 [address] [facility] [id number] Globulin Calculated mass conc (S) 2.7 g/dL Normal 1.5-4.5 [facility] Work Phone: Globulin mass conc (S) 2.7 g/dL Normal 1.5-4.5 [facility] Work Phone: Comment on above: PATIENT NOT FASTINGP ERFORMED BY: RADHA LabKatty Lees6370 [facility] [id number] Glucose mass conc 94 mg/dL Normal 65-99 Compreh ensive Internal Medicine Work Phone: Comment on above: PATIENT NOT FASTINGP ERFORMED BY: RADHA Hernandezlin6370 [facility] [id number] Potassium molar conc 4.5 mmol/L Normal 3.5-5.2 Comp rehensive Internal Medicine Work Phone: Comment on above: PATIENT NOT FASTINGP ERFORMED BY: RADHA Hernandezlin6370 [facility] [id number] Protein mass conc 6.9 g/dL Normal 6.0-8.5 Compreh ensive Internal Medicine Work Phone: Comment on above: PATIENT NOT FASTINGP ERFORMED BY: RADHA LabKatty HernandezEhbmcp1748 [address] [facility] [id number] Sodium molar conc 143 mmol/L Normal 134-144 Compreh ensive Internal Medicine Work Phone: Comment on above: PATIENT NOT FASTINGP ERFORMED BY: RADHA LabCoasim HernandezVrjqbx5007 [address] [facility] [id number] Urea nitrogen mass conc 12 mg/dL Normal 8-27 [facility] Work Phone: Comment on above: PATIENT NOT FASTINGP ERFORMED BY: RADHA LabKatty HernandezAllgfe1668 [address] [facility] [id number] Urea nitrogen/Creatinine mass ratio 16 mg/mg Normal 12-28 [facility] Work Phone: Comment on above: PATIENT NOT FASTINGP ERFORMED BY: [employer] [facility] Akbiqy5[address] DeporvillageGood [facility] [id number] T3, FREE (TRIDOTHYRONINE) ([id number] 0976)Ordered By: Manufacturing Machine Operator on 09-28-2016 T3 free mass conc 2.9 pg/mL Normal 2.0-4.4 Compreh ensive Internal Medicine Work Phone: Comment on above: PATIENT NOT FASTINGP ERFORMED BY: [facility] [id number] [facility] [id number] T4, FREE (THYROXINE) ([id number]) Ordered By: Manufacturing Machine Operator on 09-28-2016 T4 free mass conc 1.27 ng/dL Normal 0.82-1.77 Compreh ensive Internal Medicine Work Phone: Comment on above: PATIENT NOT FASTINGP ERFORMED BY: [employer]Coding Technologiesrp [id number] [facility] [id number] TSH ([id number])Ordered By: [facility] Technician on 09-28-2016 Thyrotropin Qn 2.410 {uIU/mL} Normal 0.450-4.50 0 [facility] Work Phone: Comment on above: PATIENT NOT FASTINGP ERFORMED BY: SCM-GLrp [id number] [facility] [id number] Office Visit: coughamara 2016 Documentation of current medications (procedure) Done Invalid Interpretation Code [facility] Work Phone: Protein mass conc Done [facility] Work Phone: Tobacco smoking status MIIS Never Invalid Interpretation Code [facility] Work Phone: Tobacco smoking status MIIS Former smoker [facility] Work Phone: Tobacco use [facility] Former smoker Invalid Interpretation Code [facility] Work Phone: Append: [place] [facility] referral (closing loop)on 09-08-2016 Clinical consultation report (record artifact) [facility]-[id number]^08/12/2016 Invalid Interpretation Code [facility] Work Phone: Office Visit: Coughon 2016 Documentation of current medications (procedure) Done Invalid Interpretation Code [facility] Work Phone: Protein mass conc Done [facility] Work Phone: Tobacco smoking status MIIS Never Invalid Interpretation Code [facility] Work Phone: Tobacco smoking status MIIS Former smoker [facility] Work Phone: Tobacco use [facility] Former smoker Invalid Interpretation Code [facility] Work Phone: Lab Report: Allergens, Zone 8on 08-03-2016 GE use only - for LinkLogic import when terms are not otherwise specified Comment Invalid Interpretation Code . [facility] Work Phone: RAST COMMENT Comment Invalid Interpretation Code . [facility] Work Phone: Lab Report: Immunoglobulin E on 08-01-2016 IMMUNO E 121 [iU]/mL High 0-100 [facility] Work Phone: immunoglobulin E, serum, quantitative 121 [iU]/mL High 0-100 [facility] Work Phone: Allergens, Zone 8Ordered By: Manufacturing Machine Operator on 07-30-2016 BAHIA GRASS 4.80 kU/L Abnormal [facility] Work Phone: BERMUDA GRASS 4.69 kU/L Abnormal Comprehensi ve Internal Medicine Work Phone: [place] 5.00 kU/L Abnormal Comprehensi ve Internal Medicine Work Phone: CEDAR, MOUNTAIN 3.82 kU/L Abnormal Comprehen sive Internal Medicine Work Phone: COCKROACH,AMER 1.87 kU/L Abnormal Comprehens avni Internal Medicine Work Phone: D FARINAE MITE 0.96 kU/L Abnormal Comprehens avni [facility] Work Phone: D PTERONYSSINUS 0.40 kU/L Abnormal Comprehen sive Internal Medicine Work Phone: ELKANIKA Davidson WHITE 4.52 kU/L Abnormal Comprehens avni [facility] Medicine Work Phone: HAZELNUT TREE 2.09 kU/L Abnormal Comprehensi ve Internal Medicine Work Phone: HICKORY, WHITE 2.73 kU/L Abnormal Comprehens avni [facility] Medicine Work Phone: JEREL GRASS 5.29 kU/L Abnormal Comprehensi ve Internal Medicine Work Phone: MAPLE/BOX ELDER 4.57 kU/L Abnormal Comprehen sive Internal Medicine Work Phone: MUCOR RACEMOSUS 2.08 kU/L Abnormal Comprehen sive Internal Medicine Work Phone: MUGWORT 2.86 kU/L Abnormal [facility] Work Phone: MULBERRY, WHITE 3.54 kU/L Abnormal Comprehen sive Internal Medicine Work Phone: NETTLE 4.19 kU/L Abnormal [facility] Work Phone: Comment on above: Performed at: [address] [id number] Director: Ralph Dumont MD, Phone: [phone] GUILLAUME LONG 4.48 kU/L Abnormal [facility] Work Phone: PEN CHRYSOGEN <0.10 Normal Comprehensi ve Internal Medicine Work Phone: PIGWEED, ROUGH 4.28 kU/L Abnormal Comprehens avni Internal Medicine Work Phone: PLANTAIN,ENGLSH 4.13 kU/L Abnormal Comprehen sive Internal Medicine Work Phone: RAGWEED SH/COM 4.47 kU/L Abnormal Comprehens avni Internal Medicine Work Phone: RAST COMMENT Comment Normal Comprehensiv e Internal Medicine Work Phone: Comment on above: Levels of Specific I gE Class Description of Class ----- < 0.10 0 Negative 0.10 - 0.31 0/I Equivocal/Low 0.32 - 0.55 I Low 0.56 - 1.40 II Moderate 1.41 - 3.90 III High 3.91 - 19.00 IV Very High 19.01 - 100.00 V Very High >100.00 Very High SHEEP SORREL 4.65 kU/L Abnormal Comprehensiv e Internal Medicine Work Phone: SWEET GUM 4.03 kU/L Abnormal [facility] Work Phone: SYCAMORE, AMER 5.05 kU/L Abnormal Comprehens avni Internal Medicine Work Phone: Allergens, Zone 8 <0.10 Normal Compreh ensive Internal Medicine Work Phone: Comment on above: Order Date: 07/30/16 Order Info: 0763-1 - *RASTZONE8 Allergens,Zone8 [id number](s) 542070-O616-HiN Cockroach, Mal[place]ian; 118676-C181-BqR [place], [place]; 318239-V215-VbI Sweet Gumwere developed and had performance characteristicsdetermined by [facility]. These tests have not been cleared orapproved by the U.S. Food and Drug Administration. The FDAhas determined that such clearance or approval is notnecessary. These tests are used for clinical purposes.These should not be regarded as investigational or forresearch.[facility] (refer to report for specific site)refer to report for address and phone number Allergens, Zone 8 4.80 kU/L Abnormal Compreh ensive Internal Medicine Work Phone: Comment on above: Order Date: 07/30/16 Order Info: 0763-1 - *RASTZONE8 Allergens,Zone8 763551Pbmi(s) 441946-Q912-VfE Cockroach, [place]ian; 372271-P757-FcI [place], [place]; 333686-N848-ThU Sweet Gumwere developed and had performance characteristicsdetermined by [facility]. These tests have not been cleared orapproved by the U.S. Food and Drug Administration. The FDAhas determined that such clearance or approval is notnecessary. These tests are used for clinical purposes.These should not be regarded as investigational or forresearch.[facility] (refer to report for specific site)refer to report for address and phone number Allergens, Zone 8 5.29 kU/L Abnormal Compreh ensive Internal Medicine Work Phone: Comment on above: Order Date: 07/30/16 Order Info: 0763-1 - *RASTZONE8 Allergens,Zone8 [id number](s) 557735-Y815-KxP Cockroach, [place]ian; 496970-B634-GaN [place], [place]; 534582-T901-JmZ Sweet Gumwere developed and had performance characteristicsdetermined by [facility]. These tests have not been cleared orapproved by the U.S. Food and Drug Administration. The FDAhas determined that such clearance or approval is notnecessary. These tests are used for clinical purposes.These should not be regarded as investigational or forresearch.[facility] (refer to report for specific site)refer to report for address and phone number Allergens, Zone 8 4.57 kU/L Abnormal Compreh ensive Internal Medicine Work Phone: Comment on above: Order Date: 07/30/16 Order Info: 0763-1 - *RASTZONE8 Allergens,Zone8 089109Xhgp(s) 413241-N980-BwJ Cockroach, Mal[place]ian; 469943-Y349-QsA [place], [place]; 446857-T327-SfZ Sweet Gumwere developed and had performance characteristicsdetermined by [facility]. These tests have not been cleared orapproved by the U.S. Food and Drug Administration. The FDAhas determined that such clearance or approval is notnecessary. These tests are used for clinical purposes.These should not be regarded as investigational or forresearch.[facility] (refer to report for specific site)refer to report for address and phone number Allergens, Zone 8 2.09 kU/L Abnormal Compreh ensive Internal Medicine Work Phone: Comment on above: Order Date: 07/30/16 Order Info: 0763-1 - *RASTZONE8 Allergens,Zone8 [id number](s) 358158-G848-IsB Cockroach, [place]ian; 361037-L341-MlN [place], [place]; 744524-A324-ZaI Sweet Gumwere developed and had performance characteristicsdetermined by [facility]. These tests have not been cleared orapproved by the U.S. Food and Drug Administration. The FDAhas determined that such clearance or approval is notnecessary. These tests are used for clinical purposes.These should not be regarded as investigational or forresearch.[facility] (refer to report for specific site)refer to report for address and phone number Allergens, Zone 8 5.00 kU/L Abnormal Compreh ensive Internal Medicine Work Phone: Comment on above: Order Date: 07/30/16 Order Info: 0763-1 - *RASTZONE8 Allergens,Zone8 457025Hhff(s) 796889-L798-XxP Cockroach, [place]ian; 844821-B528-WcS [place], [place]; 587727-A652-HhI Sweet Gumwere developed and had performance characteristicsdetermined by [facility]. These tests have not been cleared orapproved by the U.S. Food and Drug Administration. The FDAhas determined that such clearance or approval is notnecessary. These tests are used for clinical purposes.These should not be regarded as investigational or forresearch.[facility] (refer to report for specific site)refer to report for address and phone number Allergens, Zone 8 4.69 kU/L Abnormal Compreh ensive Internal Medicine Work Phone: Comment on above: Order Date: 07/30/16 Order Info: 0763-1 - *RASTZONE8 Allergens,Zone8 446320Zrqe(s) 024442-U937-MdG Cockroach, [place]ian; 490559-B734-PwX [place], [place]; 576380-A851-VzC Sweet Gumwere developed and had performance characteristicsdetermined by [facility]. These tests have not been cleared orapproved by the U.S. Food and Drug Administration. The FDAhas determined that such clearance or approval is notnecessary. These tests are used for clinical purposes.These should not be regarded as investigational or forresearch.[facility] (refer to report for specific site)refer to report for address and phone number Allergens, Zone 8 2.73 kU/L Abnormal Compreh ensive Internal Medicine Work Phone: Comment on above: Order Date: 07/30/16 Order Info: 0763-1 - *RASTZONE8 Allergens,Zone8 978569Fchb(s) 136236-D677-JwU Cockroach, [place]ian; 419369-R207-CgC [place], [place]; 179842-I169-GjD Sweet Gumwere developed and had performance characteristicsdetermined by [facility]. These tests have not been cleared orapproved by the U.S. Food and Drug Administration. The FDAhas determined that such clearance or approval is notnecessary. These tests are used for clinical purposes.These should not be regarded as investigational or forresearch.[facility] (refer to report for specific site)refer to report for address and phone number Allergens, Zone 8 0.40 kU/L Abnormal Compreh ensive Internal Medicine Work Phone: Comment on above: Order Date: 07/30/16 Order Info: 0763-1 - *RASTZONE8 Allergens,Zone8 497380Ztay(s) 442169-S919-ZlG Cockroach, [place]ian; 209235-T681-QfG [place], [place]; 351407-W261-ZmT Sweet Gumwere developed and had performance characteristicsdetermined by [facility]. These tests have not been cleared orapproved by the U.S. Food and Drug Administration. The FDAhas determined that such clearance or approval is notnecessary. These tests are used for clinical purposes.These should not be regarded as investigational or forresearch.[facility] (refer to report for specific site)refer to report for address and phone number Allergens, Zone 8 5.05 kU/L Abnormal Compreh ensive Internal Medicine Work Phone: Comment on above: Order Date: 07/30/16 Order Info: 0763-1 - *RASTZONE8 Allergens,Zone8 330861Htfl(s) 393490-O304-EtE Cockroach, [place]ian; 660846-Z829-VyC [place], [place]; 309900-O692-RaE Sweet Gumwere developed and had performance characteristicsdetermined by [facility]. These tests have not been cleared orapproved by the U.S. Food and Drug Administration. The FDAhas determined that such clearance or approval is notnecessary. These tests are used for clinical purposes.These should not be regarded as investigational or forresearch.[facility] (refer to report for specific site)refer to report for address and phone number Allergens, Zone 8 3.54 kU/L Abnormal Compreh ensive Internal Medicine Work Phone: Comment on above: Order Date: 07/30/16 Order Info: 0763-1 - *RASTZONE8 Allergens,Zone8 786002Xeda(s) 791672-K420-BjC Cockroach, [place]ian; 205068-M376-NnK [place], [place]; 073805-T601-WrL Sweet Gumwere developed and had performance characteristicsdetermined by [facility]. These tests have not been cleared orapproved by the U.S. Food and Drug Administration. The FDAhas determined that such clearance or approval is notnecessary. These tests are used for clinical purposes.These should not be regarded as investigational or forresearch.[facility] (refer to report for specific site)refer to report for address and phone number Allergens, Zone 8 4.03 kU/L Abnormal Compreh ensive Internal Medicine Work Phone: Comment on above: Order Date: 07/30/16 Order Info: 0763-1 - *RASTZONE8 Allergens,Zone8 970728Xtse(s) 974005-F849-EcL Cockroach, [place]ian; 947854-Z682-RcO [place], [place]; 811629-I115-UxP Sweet Gumwere developed and had performance characteristicsdetermined by [facility]. These tests have not been cleared orapproved by the U.S. Food and Drug Administration. The FDAhas determined that such clearance or approval is notnecessary. These tests are used for clinical purposes.These should not be regarded as investigational or forresearch.[facility] (refer to report for specific site)refer to report for address and phone number Allergens, Zone 8 3.82 kU/L Abnormal Compreh ensive Internal Medicine Work Phone: Comment on above: Order Date: 07/30/16 Order Info: 0763-1 - *RASTZONE8 Allergens,Zone8 758116Mida(s) 413533-H112-XzI Cockroach, [place]ian; 765619-Q661-HwD [place], [place]; 885829-G533-CoX Sweet Gumwere developed and had performance characteristicsdetermined by [facility]. These tests have not been cleared orapproved by the U.S. Food and Drug Administration. The FDAhas determined that such clearance or approval is notnecessary. These tests are used for clinical purposes.These should not be regarded as investigational or forresearch.[facility] (refer to report for specific site)refer to report for address and phone number Allergens, Zone 8 4.47 kU/L Abnormal Compreh ensive Internal Medicine Work Phone: Comment on above: Order Date: 07/30/16 Order Info: 0763-1 - *RASTZONE8 Allergens,Zone8 067944Yucg(s) 174701-F489-PpA Cockroach, [place]ian; 792904-E879-CwA [place], [place]; 068807-U193-LqG Sweet Gumwere developed and had performance characteristicsdetermined by [facility]. These tests have not been cleared orapproved by the U.S. Food and Drug Administration. The FDAhas determined that such clearance or approval is notnecessary. These tests are used for clinical purposes.These should not be regarded as investigational or forresearch.[facility] (refer to report for specific site)refer to report for address and phone number Allergens, Zone 8 2.86 kU/L Abnormal Compreh ensive Internal Medicine Work Phone: Comment on above: Order Date: 07/30/16 Order Info: 0763-1 - *RASTZONE8 Allergens,Zone8 094082Nokx(s) 319436-Z202-KlJ Cockroach, [place]ian; 340970-E413-WbJ [place], [place]; 651228-F349-OcN Sweet Gumwere developed and had performance characteristicsdetermined by [facility]. These tests have not been cleared orapproved by the U.S. Food and Drug Administration. The FDAhas determined that such clearance or approval is notnecessary. These tests are used for clinical purposes.These should not be regarded as investigational or forresearch.[facility] (refer to report for specific site)refer to report for address and phone number Allergens, Zone 8 4.13 kU/L Abnormal Compreh ensive Internal Medicine Work Phone: Comment on above: Order Date: 07/30/16 Order Info: 0763-1 - *RASTZONE8 Allergens,Zone8 122946Djwd(s) 334744-U596-IvJ Cockroach, [place]ian; 725981-D345-UiT [place], [place]; 851982-F062-GkC Sweet Gumwere developed and had performance characteristicsdetermined by [facility]. These tests have not been cleared orapproved by the U.S. Food and Drug Administration. The FDAhas determined that such clearance or approval is notnecessary. These tests are used for clinical purposes.These should not be regarded as investigational or forresearch.[facility] (refer to report for specific site)refer to report for address and phone number Allergens, Zone 8 4.28 kU/L Abnormal Compreh ensive Internal Medicine Work Phone: Comment on above: Order Date: 07/30/16 Order Info: 0763-1 - *RASTZONE8 Allergens,Zone8 081770Qpky(s) 586098-B761-OrN Cockroach, [place]ian; 363334-N392-QuA [place], [place]; 237375-Y809-NxC Sweet Gumwere developed and had performance characteristicsdetermined by [facility]. These tests have not been cleared orapproved by the U.S. Food and Drug Administration. The FDAhas determined that such clearance or approval is notnecessary. These tests are used for clinical purposes.These should not be regarded as investigational or forresearch.[facility] (refer to report for specific site)refer to report for address and phone number Allergens, Zone 8 4.65 kU/L Abnormal Compreh ensive Internal Medicine Work Phone: Comment on above: Order Date: 07/30/16 Order Info: 0763-1 - *RASTZONE8 Allergens,Zone8 349654Vgwh(s) 757859-I870-KeU Cockroach, [place]ian; 387931-T032-NfL [place], [place]; 091857-P844-FcN Sweet Gumwere developed and had performance characteristicsdetermined by [facility]. These tests have not been cleared orapproved by the U.S. Food and Drug Administration. The FDAhas determined that such clearance or approval is notnecessary. These tests are used for clinical purposes.These should not be regarded as investigational or forresearch.[facility] (refer to report for specific site)refer to report for address and phone number Allergens, Zone 8 4.19 kU/L Abnormal Compreh ensive Internal Medicine Work Phone: Comment on above: Performed at: [address] [id number] Director: Ralph Dumont MD, Phone: [phone] Order Date: 07/30/16 Order Info: 0763-1 - *RASTZONE8 Allergens,Zone8 [id number](s) 905573-Z707-UuT Cockroach, [place]ian; 697561-C338-EpJ [place], [place]; 009055-N856-MeD Sweet Gumwere developed and had performance characteristicsdetermined by [facility]. These tests have not been cleared orapproved by the U.S. Food and Drug Administration. The FDAhas determined that such clearance or approval is notnecessary. These tests are used for clinical purposes.These should not be regarded as investigational or forresearch.[facility] (refer to report for specific site)refer to report for address and phone number Allergens, Zone 8 1.87 kU/L Abnormal Compreh ensive Internal Medicine Work Phone: Comment on above: Order Date: 07/30/16 Order Info: 0763-1 - *RASTZONE8 Allergens,Zone8 136274Waju(s) 932043-Z093-ApE Cockroach, [place]ian; 411761-C028-JrF [place], [place]; 681475-D918-JeE Sweet Gumwere developed and had performance characteristicsdetermined by [facility]. These tests have not been cleared orapproved by the U.S. Food and Drug Administration. The FDAhas determined that such clearance or approval is notnecessary. These tests are used for clinical purposes.These should not be regarded as investigational or forresearch.[facility] (refer to report for specific site)refer to report for address and phone number Allergens, Zone 8 Comment Normal [facility] Work Phone: Comment on above: Levels of Specific I gE Class Description of Class ----- < 0.10 0 Negative 0.10 - 0.31 0/I Equivocal/Low 0.32 - 0.55 I Low 0.56 - 1.40 II Moderate 1.41 - 3.90 III High 3.91 - 19.00 IV Very High 19.01 - 100.00 V Very High >100.00 Very High Order Date: 07/30/16 Order Info: 0763-1 - *RASTZONE8 Allergens,Zone8 010125Ufnm(s) 462828-I866-AuS Cockroach, [place]ian; 849948-A764-YkD [place], [place]; 565001-O543-WsO Sweet Gumwere developed and had performance characteristicsdetermined by [facility]. These tests have not been cleared orapproved by the U.S. Food and Drug Administration. The FDAhas determined that such clearance or approval is notnecessary. These tests are used for clinical purposes.These should not be regarded as investigational or forresearch.[facility] (refer to report for specific site)refer to report for address and phone number Allergens, Zone 8 4.52 kU/L Abnormal [facility] Work Phone: Comment on above: Order Date: 07/30/16 Order Info: 0763-1 - *RASTZONE8 Allergens,Zone8 296536Xeyn(s) 773696-V577-TxU Cockroach, [place]ian; 509121-V124-CiO [place], [place]; 216423-B966-MtQ Sweet Gumwere developed and had performance characteristicsdetermined by [facility]. These tests have not been cleared orapproved by the U.S. Food and Drug Administration. The FDAhas determined that such clearance or approval is notnecessary. These tests are used for clinical purposes.These should not be regarded as investigational or forresearch.[facility] (refer to report for specific site)refer to report for address and phone number Allergens, Zone 8 0.96 kU/L Abnormal Compreh ensive Internal Medicine Work Phone: Comment on above: Order Date: 07/30/16 Order Info: [id number] - *RASTZONE8 Allergens,Zone8 [id number](s) [id number] Cockroach, Malawian; [id number] Buffalo, White; [id number]-RcQ Sweet Gumwere developed and had performance characteristicsdetermined by [facility]. These tests have not been cleared orapproved by the U.S. Food and Drug Administration. The FDAhas determined that such clearance or approval is notnecessary. These tests are used for clinical purposes.These should not be regarded as investigational or forresearch.[facility] (refer to report for specific site)refer to report for address and phone number Allergens, Zone 8 4.48 kU/L Abnormal Compreh ensive Internal Medicine Work Phone: Comment on above: Order Date: 07/30/16 Order Info: [id number] - *RASTZONE8 Allergens,Zone8 [id number](s) [id number] Cockroach, Malawian; [id number]-[id number]-EwK Buffalo, White; [id number]-I954-NsG Sweet Gumwere developed and had performance characteristicsdetermined by [facility]. These tests have not been cleared orapproved by the U.S. Food and Drug Administration. The FDAhas determined that such clearance or approval is notnecessary. These tests are used for clinical purposes.These should not be regarded as investigational or forresearch.[facility] (refer to report for specific site)refer to report for address and phone number Allergens, Zone 8 2.08 kU/L Abnormal Compreh ensive Internal Medicine Work Phone: Comment on above: Order Date: 07/30/16 Order Info: [id number] - *RASTZONE8 Allergens,Zone8 [id number](s) [id number] Cockroach, Malawian; [id number]-YyR Buffalo, White; 632490-S049-WiS Sweet Gumwere developed and had performance characteristicsdetermined by [facility]. These tests have not been cleared orapproved by the U.S. Food and Drug Administration. The FDAhas determined that such clearance or approval is notnecessary. These tests are used for clinical purposes.These should not be regarded as investigational or forresearch.[facility] (refer to report for specific site)refer to report for address and phone number Immunoglobulin EOrdered By: Manufacturing Machine Operator on 07-30-2016 IgE Qn 121 {IU/mL} Abnormal 0-100 [facility] Work Phone: Comment on above: Performed at: [address] [id number] Director: Sage Salmeron PhD, Phone: [phone] Order Date: 07/30/16 Order Info: [id number] - *MAXINE Immunoglobulin E (IgE)[facility] (refer to report for specific site)refer to report for address and phone number Office Visit: Asthmaon 07-30 Documentation of current medications (procedure) Done Invalid Interpretation Code [facility] Work Phone: Tobacco smoking status MIIS Never Invalid Interpretation Code [facility] Work Phone: Tobacco use [facility] Former smoker Invalid Interpretation Code [facility] Work Phone: Office Visit: [facility]29-2016 Documentation of current medications (procedure) Done Invalid Interpretation Code [facility] Work Phone: Tobacco smoking status MIIS Never Invalid Interpretation Code [facility] Work Phone: Tobacco use [facility] Former smoker Invalid Interpretation Code [facility] Work Phone: Basic Metabolic Profile (BMP )Ordered By: Manufacturing Machine Operator on 06-10-2016 Basic metabolic 2000 panel 57 mL/min Abnormal [facility] Work Phone: Comment on above: Non- GFR Calc 'TROP' Serial specim en #1, #2, #3, or #4: [address] [place] [address] [place], [place], [phone] Basic metabolic 2000 panel 107 mg/dL Normal 70-110 [facility] Work Phone: Comment on above: 'TROP' Serial specim en #1, #2, #3, or #4: [address] [place] [address] [place], [address] Basic metabolic 2000 panel 3.6 mmol/L Normal 3.5-5.1 [facility] Work Phone: Comment on above: 'TROP' Serial specim en #1, #2, #3, or #4: [address] [place] [address] [place], [address] Basic metabolic 2000 panel 138 mmol/L Normal 136-145 [facility] Work Phone: Comment on above: 'TROP' Serial specim en #1, #2, #3, or #4: [address] [place] [address] [place], [address] Basic metabolic 2000 panel 4 1 Abnormal 5-15 [facility] Work Phone: Comment on above: 'TROP' Serial specim en #1, #2, #3, or #4: [address] [place] [address] [place], [address] Basic metabolic 2000 panel 8.7 mg/dL Normal 8.5-10.1 [facility] Work Phone: Comment on above: 'TROP' Serial specim en #1, #2, #3, or #4: [address] [place] [address] [place], [place], [phone] Basic metabolic 2000 panel 18 mg/dL Normal 7-18 [facility] Work Phone: Comment on above: 'TROP' Serial specim en #1, #2, #3, or #4: [facility] [address] [place], [place], [phone] Basic metabolic 2000 panel 29.0 mmol/L Normal 21.0-32.0 [facility] Work Phone: Comment on above: 'TROP' Serial specim en #1, #2, #3, or #4: [address] [place] [address] [place], [place], [phone] Basic metabolic 2000 panel 105 mmol/L Normal 98-107 [facility] Work Phone: Comment on above: 'TROP' Serial specim en #1, #2, #3, or #4: [address] [place] [address] [place], [place], [phone] Basic metabolic 2000 panel 17.5 {RATIO} Normal 10-20 [facility] Work Phone: Comment on above: 'TROP' Serial specim en #1, #2, #3, or #4: [address] [place] [address] [place], [place], [phone] Basic metabolic 2000 panel 49.65 ml/min Normal [facility] Work Phone: Comment on above: 'TROP' Serial specim en #1, #2, #3, or #4: [address] [place] [address] [place], [place], [phone] Basic metabolic 2000 panel 69 mL/min Normal [facility] Work Phone: Comment on above: GFR Calc 'TROP' Serial specim en #1, #2, #3, or #4: [address] [place] [address] [place], [place], [phone] Basic metabolic 2000 panel 1.03 mg/dL Abnormal 0.55-1.02 [facility] Work Phone: Comment on above: The validity of the calculated GFR AND GFRAA in patients over70 years has not been determined. Clinical correlation isessential. 'TROP' Serial specim en #1, #2, #3, or #4: [facility] [address] [place], [place], [phone] CBC W/Diff, AutomatedOrdered By: Manufacturing Machine Operator on 06-10-2016 Absolute Lymph 1.31 {X10_3/ul} Normal 0.83-4.51 Compr ehensive Internal Medicine Work Phone: Absolute Neut 10.5 {X10_3/uL} Abnormal 2.0-7.7 Compre hensive Internal Medicine Work Phone: Comment on above: [facility] [address] [place], [phone] Basophils/100 WBC (Bld) 0.1 % Normal 0-1 [facility] Work Phone: Comment on above: [facility] [address] [place], [address] Basophils/100 WBC Auto (Bld) 0.1 % Normal 0-1 [facility] Work Phone: Eosinophils/100 WBC (Bld) 0.0 % Normal 0-5 [facility] Work Phone: Comment on above: [facility] [address] [place], [phone] Eosinophils/100 WBC Auto (Bld) 0.0 % Normal 0-5 [facility] Work Phone: Erythrocyte distribution width Auto Ratio (RBC) 15.0 % Abnormal 11.6-14.6 [facility] Work Phone: Erythrocyte distribution width Ratio (RBC) 15.0 % Abnormal 11.6-14.6 [facility] Work Phone: Comment on above: [facility] [address] [place], [place], [phone] Hematocrit Auto Volume Fraction (Bld) 46.1 % Normal 37-47 Comprehens avni Internal Medicine Work Phone: Hematocrit Volume Fraction (Bld) 46.1 % Normal 37-47 [facility] Work Phone: Comment on above: [facility] [address] [place], [address] Hemoglobin mass conc (Bld) 14.9 g/dL Normal 12.0-15.0 [facility] Work Phone: Comment on above: [facility] [address] [place], [address] IM GRAN % 2.100 % Abnormal 0.0-0.9 [facility] Work Phone: Comment on above: IG% - Immature Granu locytes (promyelocytes, myelocytes andmetamyelocytes) > 1% indicates that a LEFT SHIFT is Present. [place] [address] [place], [place], [phone] Lymphocytes #/vol (Bld) 1.31 {X10_3/ul} Normal 0.83-4.51 [facility] Work Phone: Comment on above: [facility] [address] [place], [address] Lymphocytes/100 WBC (Bld) 10.1 % Abnormal 19-41 [facility] Work Phone: Comment on above: [facility] [address] [place], [address] Lymphocytes/100 WBC Auto (Bld) 10.1 % Abnormal 19-41 [facility] Work Phone: MCH Auto Entitic mass (RBC) 29.1 pg Normal 27.0-32.0 [facility] Work Phone: MCH Entitic mass (RBC) 29.1 pg Normal 27.0-32.0 [facility] Work Phone: Comment on above: [facility] [address] [place], [address] MCHC Auto mass conc (RBC) 32.3 {g/gl} Normal 32-36 [facility] Work Phone: MCHC mass conc (RBC) 32.3 {g/gl} Normal 32-36 [facility] prehensive Internal Medicine Work Phone: Comment on above: [facility] [address] [place], [address] MCV Auto Entitic volume (RBC) 90.0 fL Normal 81-99 [facility] Work Phone: MCV Entitic volume (RBC) 90.0 fL Normal 81-99 [facility] Work Phone: Comment on above: [facility] [address] [place], [address] Monocytes/100 WBC Auto (Bld) 6.9 % Normal 0-10 [facility] Work Phone: Comment on above: [facility] [address] [place], [address] Neutrophils/100 WBC (Bld) 80.8 % Abnormal 47-70 [facility] Work Phone: Comment on above: [facility] [address] [place], [address] Neutrophils/100 WBC Auto (Bld) 80.8 % Abnormal 47-70 [facility] Work Phone: PATH REV May foll Normal [facility] Work Phone: Platelet mean volume Auto Entitic volume (Bld) 11.0 fL Normal 6.2-12.0 [facility] Work Phone: Platelet mean volume Entitic volume (Bld) 11.0 fL Normal 6.2-12.0 Comprehensi Internal Medicine Work Phone: Comment on above: [facility] [address] [place], [address] Platelets #/vol (Bld) 273 10*3/uL Normal 150-450 [facility] Work Phone: Comment on above: [facility] [address] [place], [place], [phone] Platelets Auto #/vol (Bld) 273 10*3/uL Normal 150-450 [facility] Work Phone: RBC #/vol (Bld) 5.12 {M/mm3} Normal 4.2-5.4 Compreh ensive Internal Medicine Work Phone: Comment on above: [facility] [address] [place], [address] RBC Auto #/vol (Bld) 5.12 {M/mm3} Normal 4.2-5.4 [facility] Work Phone: RDW SD 49.3 fL Abnormal 35.1-43.9 [facility] Work Phone: Comment on above: [facility] [address] [place], [place], [phone] WBC #/vol (Bld) 13.0 10*3/uL Abnormal 4.4-11.0 Compreh ensive Internal Medicine Work Phone: Comment on above: [facility] [address] [place], [address] WBC Auto #/vol (Bld) 13.0 10*3/uL Abnormal 4.4-11.0 [facility] Work Phone: CBC W/Diff, Automated May foll Normal Com prehensive Internal Medicine Work Phone: Comment on above: [facility] [address] [place], [address] D-Dimer Quantitative (DVT/PE )Ordered By: Manufacturing Machine Operator on 06-10-2016 D-DIMER QUANT < 0.27 Abnormal 0.27-0.49 Comprehensi Internal Medicine Work Phone: Comment on above: NORMAL D-Dimer level (<0.50) indicates no DVT or PE. D-Dimer Quantitative (DVT/PE) < 0.27 Abnormal 0.27-0.49 [facility] Work Phone: Comment on above: NORMAL D-Dimer level (<0.50) indicates no DVT or PE. [facility] [address] [place], [place], [address] Troponin-IOrdered By: Manufacturing Machine Operator on 06-10-2016 Troponin I.cardiac mass conc ng/mL Normal [facility] Work Phone: Comment on above: TROPONIN-I EXPECTED VALUES <0.05 NEGATIVE 0.06 - 0.59 AT RISK OF DC > OR = 0.60 SUGGEST DC 'TROP' Serial specim en #1, #2, #3, or #4: [facility] [address] [place], [place], [phone] Blood Glucose , Office ([phone])Ordered By: Hiram Castaneda on 06-24-2015 Glucose Glucometer molar conc ([facility]) 111 1 Normal [facility] Work Phone: CALCIFIDIOL ([id number]) VIT D 25 Ordered By: Manufacturing Machine Operator on 06-12-2015 25-Hydroxyvitamin D2+25-Hydroxyvitamin D3 mass conc 19.4 ng/mL Abnormal 30.0-100.0 [facility] Work Phone: Comment on above: Vitamin D deficiency has been defined by the [place] of[place]icine and an Endocrine Society practice guideline as alevel of serum 25-OH vitamin D less than 20 ng/mL (1,2).The Endocrine Society went on to further define vitamin Dinsufficiency as a level between 21 and 29 ng/mL (2).1. IOM ([place] of Medicine). 2010. Dietary reference intakes for calcium and D. [place]: The National Academies Press.2. Drea MF, Christian [place], Roni KNOWLES, et al. Evaluation, treatment, and prevention of vitamin D deficiency: an Endocrine Society clinical practice guideline. JCEM. 2010; 96(7):1911-30. PATIENT WAS FASTINGP ERFORMED BY: [facility]Eknyws2930 [facility] [id number] CBC W/AUTO DIFF WBC ([id number])O rdered By: Manufacturing Machine Operator on 06-12-2015 Basophils #/vol (Bld) 0.0 {x10E3/uL} Normal 0.0-0.2 [facility] Work Phone: Comment on above: PATIENT WAS FASTINGP ERFORMED BY: [address] [id number] Information: [id number] Basophils Auto #/vol (Bld) 0.0 {x10E3/uL} Normal 0.0-0.2 [facility] Work Phone: Basophils/100 WBC (Bld) 0 % Normal [facility] Work Phone: Comment on above: PATIENT WAS FASTINGP ERFORMED BY: [address] [id number] Information: [id number] Basophils/100 WBC Auto (Bld) 0 % Normal [facility] Work Phone: Eosinophils #/vol (Bld) 0.0 {x10E3/uL} Normal 0.0-0.4 [facility] Work Phone: Comment on above: PATIENT WAS FASTINGP ERFORMED BY: [address] [id number] Information: [id number] Eosinophils Auto #/vol (Bld) 0.0 {x10E3/uL} Normal 0.0-0.4 [facility] Work Phone: Eosinophils/100 WBC (Bld) 0 % Normal [facility] Work Phone: Comment on above: PATIENT WAS FASTINGP ERFORMED BY: [address] [id number] Information: [id number] Eosinophils/100 WBC Auto (Bld) 0 % Normal [facility] Work Phone: Erythrocyte distribution width Auto Ratio (RBC) 14.9 % Normal 12.3-15.4 [facility] Work Phone: Erythrocyte distribution width Ratio (RBC) 14.9 % Normal 12.3-15.4 [facility] Work Phone: Comment on above: PATIENT WAS FASTINGP ERFORMED BY: RADHA AniaKatty HernandezFddxfs0176 [facility] [id number] Information: [id number] Hematocrit Auto Volume Fraction (Bld) 44.4 % Normal 34.0-46.6 [facility] Internal Medicine Work Phone: Hematocrit Volume Fraction (Bld) 44.4 % Normal 34.0-46.6 [facility] Work Phone: Comment on above: PATIENT WAS FASTINGP ERFORMED BY: RADHA [facility] [address] [id number] Information: [id number] Hemoglobin mass conc (Bld) 14.4 g/dL Normal 11.1-15.9 [facility] Work Phone: Comment on above: PATIENT WAS FASTINGP ERFORMED BY: RADHA [place] [id number] [facility] [id number] Information: [id number] Immature granulocytes #/vol (Bld) 0.0 {x10E3/uL} Normal 0.0-0.1 [facility] Work Phone: Comment on above: PATIENT WAS FASTINGP ERFORMED BY: RADHA [place] [id number] [facility] [id number] Information: [id number] Immature granulocytes/100 WBC (Bld) 0 % Normal [facility] Work Phone: Comment on above: PATIENT WAS FASTINGP ERFORMED BY: RADHA [place] [id number] [facility] [id number] Information: [id number] Lymphocytes #/vol (Bld) 1.1 {x10E3/uL} Normal 0.7-3.1 [facility] Work Phone: Comment on above: PATIENT WAS FASTINGP ERFORMED BY: [place] [id number] [facility] [id number] Information: [id number] Lymphocytes Auto #/vol (Bld) 1.1 {x10E3/uL} Normal 0.7-3.1 [facility] Work Phone: Lymphocytes/100 WBC (Bld) 10 % Normal [facility] Work Phone: Comment on above: PATIENT WAS FASTINGP ERFORMED BY: [place] [id number] [facility] [id number] Information: [id number] Lymphocytes/100 WBC Auto (Bld) 10 % Normal [facility] Work Phone: MCH Auto Entitic mass (RBC) 28.8 pg Normal 26.6-33.0 [facility] Work Phone: MCH Entitic mass (RBC) 28.8 pg Normal 26.6-33.0 [facility] Work Phone: Comment on above: PATIENT WAS FASTINGP ERFORMED BY: [address] [id number] Information: [id number] MCHC Auto mass conc (RBC) 32.4 g/dL Normal 31.5-35.7 [facility] Work Phone: MCHC mass conc (RBC) 32.4 g/dL Normal 31.5-35.7 Comp rehensive Internal Medicine Work Phone: Comment on above: PATIENT WAS FASTINGP ERFORMED BY: [place] [id number] [facility] [id number] Information: [id number] MCV Auto Entitic volume (RBC) 89 fL Normal 79-97 [facility] Work Phone: MCV Entitic volume (RBC) 89 fL Normal 79-97 [facility] Work Phone: Comment on above: PATIENT WAS FASTINGP ERFORMED BY: [address] [id number] Information: [id number] Monocytes #/vol (Bld) 0.4 {x10E3/uL} Normal 0.1-0.9 [facility] Work Phone: Comment on above: PATIENT WAS FASTINGP ERFORMED BY: RADHA [place] [id number] [facility] [id number] Information: [id number] Monocytes Auto #/vol (Bld) 0.4 {x10E3/uL} Normal 0.1-0.9 [facility] Work Phone: Monocytes/100 WBC (Bld) 3 % Normal [facility] Work Phone: Comment on above: PATIENT WAS FASTINGP ERFORMED BY: RADHA [facility] [address] [id number] Information: [id number] Monocytes/100 WBC Auto (Bld) 3 % Normal [facility] Work Phone: Neutrophils #/vol (Bld) 11.2 {x10E3/uL} Abnormal 1.4-7.0 [facility] Work Phone: Comment on above: PATIENT WAS FASTINGP ERFORMED BY: RADHA [facility] [address] [id number] Information: [id number] Neutrophils Auto #/vol (Bld) 11.2 {x10E3/uL} Abnormal 1.4-7.0 [facility] Work Phone: Neutrophils/100 WBC (Bld) 87 % Normal [facility] Work Phone: Comment on above: PATIENT WAS FASTINGP ERFORMED BY: [place] [id number] [facility] [id number] Information: [id number] Neutrophils/100 WBC Auto (Bld) 87 % Normal [facility] Work Phone: Platelets #/vol (Bld) 292 {x10E3/uL} Normal 150-379 [facility] Work Phone: Comment on above: PATIENT WAS FASTINGP ERFORMED BY: RADHA [facility]Asc[facility]6370 [facility] [id number] Information: [id number] Platelets Auto #/vol (Bld) 292 {x10E3/uL} Normal 150-379 [facility] Work Phone: RBC #/vol (Bld) 5.00 {x10E6/uL} Normal 3.77-5.28 Comp rehensive Internal Medicine Work Phone: Comment on above: PATIENT WAS FASTINGP ERFORMED BY: [place] [id number] [facility] [id number] Information: [id number] RBC Auto #/vol (Bld) 5.00 {x10E6/uL} Normal 3.77-5.28 [facility] Work Phone: WBC #/vol (Bld) 12.9 {x10E3/uL} Abnormal 3.4-10.8 Comp rehensive Internal Medicine Work Phone: Comment on above: PATIENT WAS FASTINGP ERFORMED BY: [place] [id number] [facility] [id number] Information: [id number] WBC Auto #/vol (Bld) 12.9 {x10E3/uL} Abnormal 3.4-10.8 [facility] Work Phone: HGB A1C ([id number])Ordered By: [facility] Technician on 06-12-2015 Hemoglobin A1c/Hemoglobin.total mass fraction (Bld) 6.5 % Abnormal 4.8-5.6 Comprehensiv e Internal Medicine Work Phone: Comment on above: . Pre-diabetes: 5.7 - 6.4 Diabetes: >6.4 Glycemic control for adults with diabetes: <7.0 PATIENT WAS FASTINGP ERFORMED BY: [facility]6370 [facility] [id number] LIPID PANEL ([id number])Ordered B y: Manufacturing Machine Operator on 06-12-2015 Cholesterol in HDL mass conc 67 mg/dL Normal [facility] Work Phone: Comment on above: According to ATP-III Guidelines, HDL-C >59 mg/dL is considered anegative risk factor for CHD. PATIENT WAS FASTINGP ERFORMED BY: RADHA Lees[address] [facility] [id number] Cholesterol in LDL mass conc 126 mg/dL Abnormal 0-99 [facility] Work Phone: Comment on above: PATIENT WAS FASTINGP ERFORMED BY: RADHA Lees[address] [facility] [id number] Cholesterol in LDL/Cholesterol in HDL mass ratio 1.9 {ratio_units} Normal 0.0-3.2 [facility] Work Phone: Comment on above: LDL/HDL Ratio Men Wo men 1/2 Avg.Risk 1.0 1.5 Avg.Risk 3.6 3.2 2X Avg.Risk 6.2 5.0 3X Avg.Risk 8.0 6.1 PATIENT WAS FASTINGP ERFORMED BY: RADHA Lees6370 [facility] [id number] Cholesterol in VLDL mass conc 31 mg/dL Normal 5-40 [facility] Work Phone: Comment on above: PATIENT WAS FASTINGP ERFORMED BY: RADHA [address] [facility] [id number] Cholesterol mass conc 224 mg/dL Abnormal 100-199 [facility] prehensive Internal Medicine Work Phone: Comment on above: PATIENT WAS FASTINGP ERFORMED BY: RADHA Lees6[address] [facility] [id number] Triglyceride mass conc 153 mg/dL Abnormal 0-149 [facility] Work Phone: Comment on above: PATIENT WAS FASTINGP ERFORMED BY: RADHA Hernandezlin6370 [facility] [id number] METABOLIC PANEL, COMPREHENSI VE ([id number])Ordered By: Manufacturing Machine Operator on 06-12-2015 Albumin mass conc 4.2 g/dL Normal 3.6-4.8 Compreh ensive Internal Medicine Work Phone: Comment on above: PATIENT WAS FASTINGP ERFORMED BY: CB [facility] Mdxeko[address] Lam RoadDublin [place] [id number] Albumin/Globulin mass ratio 1.6 {ratio} Normal 1.1-2.5 [facility] Internal Medicine Work Phone: Comment on above: PATIENT WAS FASTINGP ERFORMED BY: RADHA [facility] Aheaxj3534 Lam RoadDublin [place] [id number] ALP enzyme act/vol 71 [iU]/L Normal 39-117 [facility] Internal Medicine Work Phone: Comment on above: PATIENT WAS FASTINGP ERFORMED BY: RADHA [facility] Wkdlqh8581 Lam RoadDublin [place] [id number] ALT enzyme act/vol 21 [iU]/L Normal 0-32 [facility] Internal Medicine Work Phone: Comment on above: PATIENT WAS FASTINGP ERFORMED BY: RADHA [facility] Hqxpmj5290 Lam Roadblin [place] [id number] AST enzyme act/vol 15 [iU]/L Normal 0-40 [facility] Internal Medicine Work Phone: Comment on above: PATIENT WAS FASTINGP ERFORMED BY: RADHA [facility] Xhwhac4642 [address] RoadDublin [place] [id number] Bilirubin mass conc 0.7 mg/dL Normal 0.0-1.2 Compr [facility] Internal Medicine Work Phone: Comment on above: PATIENT WAS FASTINGP ERFORMED BY: RADHA [facility] Xgfvkj1469 Lam RoadNovant Health Kerners[facility] Centerin [place] [id number] Calcium mass conc 9.7 mg/dL Normal 8.7-10.3 Compreh [facility] Internal Medicine Work Phone: Comment on above: PATIENT WAS FASTINGP ERFORMED BY: RADHA [facility] Fyhpbe9180 Lam RoadDublin [place] [id number] Chloride molar conc 97 mmol/L Normal 97-108 Compr [facility] Internal Medicine Work Phone: Comment on above: PATIENT WAS FASTINGP ERFORMED BY: RADHA [facility] Ejkock6649 [address] RoadDublin [place] [id number] CO2 molar conc 25 mmol/L Normal 18-29 Comprehens [facility] Internal Medicine Work Phone: Comment on above: PATIENT WAS FASTINGP ERFORMED BY: RADHA [facility] Eglnxr0134 Lam [facility] [place] [id number] Creatinine mass conc 0.93 mg/dL Normal 0.57-1.00 Comp rehensive Internal Medicine Work Phone: Comment on above: PATIENT WAS FASTINGP ERFORMED BY: [facility] Rztaqn3444 Lam [facility] [place] [id number] GFR/1.73 sq M predicted among blacks CKD-EPI vol rate/area (S/P/Bld) 76 mL/min/1.73 Normal Comprehensiv e Internal Medicine Work Phone: Comment on above: PATIENT WAS FASTINGP ERFORMED BY: [facility] Oqutum8960 Lam [facility]in [place] [id number] GFR/1.73 sq M predicted among non-blacks CKD-EPI vol rate/area (S/P/Bld) 66 mL/min/1.73 Normal [facility] Work Phone: Comment on above: PATIENT WAS FASTINGP ERFORMED BY: RADHA [facility] Ejtyhc0217 [facility] [id number] Globulin Calculated mass conc (S) 2.7 g/dL Normal 1.5-4.5 [facility] Work Phone: Globulin mass conc (S) 2.7 g/dL Normal 1.5-4.5 [facility] Work Phone: Comment on above: PATIENT WAS FASTINGP ERFORMED BY: [facility] Njujyt7688 [facility] [place] [id number] Glucose mass conc 122 mg/dL Abnormal 65-99 Compreh ensive Internal Medicine Work Phone: Comment on above: PATIENT WAS FASTINGP ERFORMED BY: [facility] Bgwpxi9526 [facility]in [place] [id number] Potassium molar conc 4.5 mmol/L Normal 3.5-5.2 Comp rehensive Internal Medicine Work Phone: Comment on above: PATIENT WAS FASTINGP ERFORMED BY: RADHA [facility] Sgxwee4021 Lam Dejamorblin [place] [id number] Protein mass conc 6.9 g/dL Normal 6.0-8.5 Compreh ensive Internal Medicine Work Phone: Comment on above: PATIENT WAS FASTINGP ERFORMED BY: [facility] Fnfwvl0813 Lam DeporvillageDublin [place] [id number] Sodium molar conc 141 mmol/L Normal 134-144 Compreh ensive Internal Medicine Work Phone: Comment on above: PATIENT WAS FASTINGP ERFORMED BY: [facility] Cgicmh4220 Lam Dejamorin [place] [id number] Urea nitrogen mass conc 18 mg/dL Normal 8-27 [facility] Work Phone: Comment on above: PATIENT WAS FASTINGP ERFORMED BY: [facility] Rueken0925 Lam Dejamorin [place] [id number] Urea nitrogen/Creatinine mass ratio 19 mg/mg Normal 11-26 [facility] Work Phone: Comment on above: PATIENT WAS FASTINGP ERFORMED BY: [facility] Immwvt5459 Lam DeporvillageGood [facility] Hospital [id number] MICROALBUMINOrdered By: Syst em Service Center Technician on 06-12-2015 Albumin DL <= 20 mg/L mass conc (U) 5.1 ug/mL Normal 0.0-17.0 [facility] Work Phone: Comment on above: Effective July 07, 016 the reference interval for Microalbumin, Urine will be changing to: Not Estab. PATIENT WAS FASTINGP ERFORMED BY: [facility] Yofknl4725 [address] Dejamorin [place] [id number] Albumin/Creatinine mass ratio (U) 3.1 {mg/g_creat} Normal 0.0-30.0 [facility] Work Phone: Comment on above: PATIENT WAS FASTINGP ERFORMED BY: [facility] Gniupv1636 Lam DeporvillageDublin [place] [id number] Creatinine mass conc (U) 166.4 mg/dL Normal 15.0-278.0 [facility] Work Phone: Comment on above: Effective July 07, 2 016 the reference interval for Creatinine, Urine will be changing to: Not Estab. PATIENT WAS FASTINGP ERFORMED BY: RADHA [facility] Sprjdg7241 Lam RoadDublin [place] [id number] Microscopic ExaminationOrder ed By: Manufacturing Machine Operator on 06-12-2015 Bacteria LM.HPF #/area (Urine sed) Few Normal [facility] Work Phone: Comment on above: PATIENT WAS FASTINGP ERFORMED BY: CB [facility] Vhbbsk8503 [address] RoadDublin [place] [id number] Epithelial cells LM.HPF #/area (Urine sed) 0-10 Normal 0 - 10 [facility] Work Phone: Comment on above: PATIENT WAS FASTINGP ERFORMED BY: RADHA [facility] Bznxcn8117 Lam RoadDublin [place] [id number] Mucus LM Ql (Urine sed) Present Normal [facility] Work Phone: Mucus Ql (Urine sed) Present Normal Comp rehensive Internal Medicine Work Phone: Comment on above: PATIENT WAS FASTINGP ERFORMED BY: RADHA [facility] Aifdnv5233 [address] RoadDublin [place] [id number] RBC LM.HPF #/area (Urine sed) 0-2 Normal 0 - 2 [facility] Work Phone: Comment on above: PATIENT WAS FASTINGP ERFORMED BY: RADHA [facility] Unlnht6619 Lam [facility] [place] [id number] WBC LM.HPF #/area (Urine sed) 0-5 Normal 0 - 5 [facility] Work Phone: Comment on above: PATIENT WAS FASTINGP ERFORMED BY: CB [facility] Lmaqvj2089 Lam [facility]in [place] [id number] TSH ([id number])Ordered By: Benson m Service Center Technician on 06-12-2015 Thyrotropin Qn 1.510 {uIU/mL} Normal 0.450-4.50 0 [facility] Work Phone: Comment on above: PATIENT WAS FASTINGP ERFORMED BY: RADHA [facility] Mfodgd9507 Lam RoadDublin [place] [id number] URINALYSIS, W/ MICRO ([id number]) Ordered By: Manufacturing Machine Operator on 06-12-2015 Appearance Nom (U) Clear Normal Compre hensive Internal Medicine Work Phone: Comment on above: PATIENT WAS FASTINGP ERFORMED BY: RADHA [facility] Rwpude8963 Lam RoadDublin [place] [id number] Bilirubin Ql (U) Negative Normal Comprehe nsive Internal Medicine Work Phone: Comment on above: PATIENT WAS FASTINGP ERFORMED BY: RADHA [facility] Smnhfu7853 [address] RoadDublin [place] [id number] Color Nom (U) Yellow Normal Comprehensi ve Internal Medicine Work Phone: Comment on above: PATIENT WAS FASTINGP ERFORMED BY: RADHA Lab[facility]asim HernandezKeqgpe5868 Lam RoadDublin [place] [id number] Glucose Ql (U) Negative Normal Comprehens avni Internal Medicine Work Phone: Comment on above: PATIENT WAS FASTINGP ERFORMED BY: RADHA [facility] Ezzmby8631 [address] RoadDublin [place] [id number] Hemoglobin Ql (U) Negative Normal Compreh ensive Internal Medicine Work Phone: Comment on above: PATIENT WAS FASTINGP ERFORMED BY: RADHA [facility] Pizitz7427 Lam RoadDublin [place] [id number] Hemoglobin Test strip Ql (U) Negative Normal [facility] Work Phone: Ketones Ql (U) Negative Normal Comprehens avni Internal Medicine Work Phone: Comment on above: PATIENT WAS FASTINGP ERFORMED BY: RADHA [facility] Wdjrlb6221 [address] RoadDublin [place] [id number] Leukocyte esterase Test strip Ql (U) Negative Normal [facility] Work Phone: Comment on above: PATIENT WAS FASTINGP ERFORMED BY: RADHA [facility] Pwzceu3286 Lam RoadDublin [place] [id number] Microscopic observation LM Nom (Urine sed) See below: Normal [facility] Work Phone: Comment on above: Microscopic was yash cated and was performed. PATIENT WAS FASTINGP ERFORMED BY: RADHA [facility] Pyqfnq5115 Lam Roadblin [place] [id number] Microscopic observation LM Nom (Urine sed) MICRON Normal [facility] Work Phone: Comment on above: Microscopic follows if indicated. PATIENT WAS FASTINGP ERFORMED BY: RADHA [facility] Jzwbmc1998 Lam [facility]in [place] [id number] Nitrite Ql (U) Negative Normal Comprehens avni Internal Medicine Work Phone: Comment on above: PATIENT WAS FASTINGP ERFORMED BY: RADHA [facility] Mtigrr0539 Lam [facility]in [place] [id number] Nitrite Test strip Ql (U) Negative Normal [facility] Work Phone: pH (U) 5.5 [pH] Normal 5.0-7.5 [facility] Work Phone: Comment on above: PATIENT WAS FASTINGP ERFORMED BY: RADHA [facility] Uriunw2778 Lam [facility] [id number] pH Test strip (U) 5.5 [pH] Normal 5.0-7.5 Compreh ensive Internal Medicine Work Phone: Protein Ql (U) Negative Normal Comprehens avni Internal Medicine Work Phone: Comment on above: PATIENT WAS FASTINGP ERFORMED BY: RADHA [facility] Luxdcx0705 Lam [facility] [id number] Protein Test strip Ql (U) Negative Normal [facility] Work Phone: Specific gravity Relative Density (U) 1.024 1 Normal 1.005-1.03 0 [facility] Work Phone: Comment on above: PATIENT WAS FASTINGP ERFORMED BY: RADHA [facility] Nduqek8998 Lam [facility]bl[facility] [place] [id number] Urobilinogen Test strip mass conc (U) 0.2 mg/dL Normal 0.2-1.0 Comprehensiv e Internal Medicine Work Phone: Comment on above: PATIENT WAS FASTINGP ERFORMED BY: [facility]Hzcfxr0257 [facility] [id number] [place] (ANTINUCLEAR ANTIBODY) ( [id number])Ordered By: Manufacturing Machine Operator on 10-20-2013 Nuclear Ab Ql (S) Positive Abnormal Compreh ensive Internal Medicine Work Phone: Comment on above: PATIENT NOT FASTINGP ERFORMED BY: [facility]Asc[facility]6370 [facility] [id number] Blood Glucose , Office ([phone])Ordered By: Anabell Mcclure on 10-20-2013 Glucose Glucometer molar conc (BldC) 120 1 Normal [facility] Work Phone: C-REACTIVE PROTEIN (03108)Or dered By: Manufacturing Machine Operator on 10-20-2013 CRP mass conc 3.7 mg/L Normal 0.0-4.9 Comprehensi ve Internal Medicine Work Phone: Comment on above: PATIENT NOT FASTINGP ERFORMED BY: [facility]Asc[facility]6370 [facility] [id number] CBC W/AUTO DIFF WBC (67888)O rdered By: Manufacturing Machine Operator on 10-20-2013 Basophils #/vol (Bld) 0.0 {x10E3/uL} Normal 0.0-0.2 [facility] Work Phone: Comment on above: PATIENT NOT FASTINGP ERFORMED BY: SCM[facility]Jeff[facility]Xyrrin9104 [facility] [id number] Information: [id number] Basophils Auto #/vol (Bld) 0.0 {x10E3/uL} Normal 0.0-0.2 [facility] Work Phone: Basophils/100 WBC (Bld) 0 % Normal 0-3 [facility] Work Phone: Comment on above: PATIENT NOT FASTINGP ERFORMED BY: [facility]Asc[facility]6370 [facility] [id number] Information: [id number] Basophils/100 WBC Auto (Bld) 0 % Normal 0-3 [facility] Work Phone: Eosinophils #/vol (Bld) 0.0 {x10E3/uL} Normal 0.0-0.4 [facility] Work Phone: Comment on above: PATIENT NOT FASTINGP ERFORMED BY: RADHA AniaKatty Jfxwep8671 [facility] [id number] Information: [id number] Eosinophils Auto #/vol (Bld) 0.0 {x10E3/uL} Normal 0.0-0.4 [facility] Work Phone: Eosinophils/100 WBC (Bld) 1 % Normal 0-5 [facility] Work Phone: Comment on above: PATIENT NOT FASTINGP ERFORMED BY: RADHA [address] [id number] Information: [id number] Eosinophils/100 WBC Auto (Bld) 1 % Normal 0-5 [facility] Work Phone: Erythrocyte distribution width Auto Ratio (RBC) 14.4 % Normal 12.3-15.4 [facility] Work Phone: Erythrocyte distribution width Ratio (RBC) 14.4 % Normal 12.3-15.4 [facility] Work Phone: Comment on above: PATIENT NOT FASTINGP ERFORMED BY: RADHA [address] [id number] Information: [id number] Hematocrit Auto Volume Fraction (Bld) 43.6 % Normal 34.0-46.6 [facility] Internal Medicine Work Phone: Hematocrit Volume Fraction (Bld) 43.6 % Normal 34.0-46.6 [facility] Work Phone: Comment on above: PATIENT NOT FASTINGP ERFORMED BY: RADHA [facility] CenterKatty Hndfzc9542 [facility] [id number] Information: [id number] Hemoglobin mass conc (Bld) 14.3 g/dL Normal 11.1-15.9 [facility] Work Phone: Comment on above: PATIENT NOT FASTINGP ERFORMED BY: [facility]6370 [facility] [id number] Information: [id number] Immature granulocytes #/vol (Bld) 0.0 {x10E3/uL} Normal 0.0-0.1 [facility] Work Phone: Comment on above: PATIENT NOT FASTINGP ERFORMED BY: [address] [id number] Information: [id number] Immature granulocytes/100 WBC (Bld) 0 % Normal 0-2 [facility] Work Phone: Comment on above: PATIENT NOT FASTINGP ERFORMED BY: [place] [id number] [facility] [id number] Information: [id number] Lymphocytes #/vol (Bld) 1.6 {x10E3/uL} Normal 0.7-3.1 [facility] Work Phone: Comment on above: PATIENT NOT FASTINGP ERFORMED BY: [place] [id number] [facility] [id number] Information: [id number] Lymphocytes Auto #/vol (Bld) 1.6 {x10E3/uL} Normal 0.7-3.1 [facility] Work Phone: Lymphocytes/100 WBC (Bld) 22 % Normal 14-46 [facility] Work Phone: Comment on above: PATIENT NOT FASTINGP ERFORMED BY: [place] [id number] [facility] [id number] Information: [id number] Lymphocytes/100 WBC Auto (Bld) 22 % Normal 14-46 [facility] Work Phone: MCH Auto Entitic mass (RBC) 29.3 pg Normal 26.6-33.0 [facility] Work Phone: MCH Entitic mass (RBC) 29.3 pg Normal 26.6-33.0 [facility] Work Phone: Comment on above: PATIENT NOT FASTINGP ERFORMED BY: [place] [id number] [facility] [id number] Information: [id number] MCHC Auto mass conc (RBC) 32.8 g/dL Normal 31.5-35.7 [facility] Work Phone: MCHC mass conc (RBC) 32.8 g/dL Normal 31.5-35.7 Comp rehensive Internal Medicine Work Phone: Comment on above: PATIENT NOT FASTINGP ERFORMED BY: [place] [id number] [facility] [id number] Information: [id number] MCV Auto Entitic volume (RBC) 89 fL Normal 79-97 [facility] Work Phone: MCV Entitic volume (RBC) 89 fL Normal 79-97 [facility] Work Phone: Comment on above: PATIENT NOT FASTINGP ERFORMED BY: [place] [id number] [facility] [id number] Information: [id number] Monocytes #/vol (Bld) 0.6 {x10E3/uL} Normal 0.1-0.9 [facility] Work Phone: Comment on above: PATIENT NOT FASTINGP ERFORMED BY: [place] 4906170 [facility] [id number] Information: [id number] Monocytes Auto #/vol (Bld) 0.6 {x10E3/uL} Normal 0.1-0.9 [facility] Work Phone: Monocytes/100 WBC (Bld) 8 % Normal 4-12 [facility] Work Phone: Comment on above: PATIENT NOT FASTINGP ERFORMED BY: [place] [id number] [facility] [id number] Information: [id number] Monocytes/100 WBC Auto (Bld) 8 % Normal 4-12 [facility] Work Phone: Neutrophils #/vol (Bld) 5.0 {x10E3/uL} Normal 1.4-7.0 [facility] Work Phone: Comment on above: PATIENT NOT FASTINGP ERFORMED BY: RADHA Keltonasim Aqjryc7024 [facility] [id number] Information: [id number] Neutrophils Auto #/vol (Bld) 5.0 {x10E3/uL} Normal 1.4-7.0 [facility] Work Phone: Neutrophils/100 WBC (Bld) 69 % Normal 40-74 [facility] Work Phone: Comment on above: PATIENT NOT FASTINGP ERFORMED BY: RADHA [facility] Hospitalasim HernandezIdcehw9701 [facility] [id number] Information: [id number] Neutrophils/100 WBC Auto (Bld) 69 % Normal 40-74 [facility] Work Phone: Platelets #/vol (Bld) 258 {x10E3/uL} Normal 150-379 [facility] Work Phone: Comment on above: PATIENT NOT FASTINGP ERFORMED BY: RADHA [place] [id number] [facility] [id number] Information: [id number] Platelets Auto #/vol (Bld) 258 {x10E3/uL} Normal 150-379 [facility] Work Phone: RBC #/vol (Bld) 4.88 {x10E6/uL} Normal 3.77-5.28 Comp [facility] Internal Medicine Work Phone: Comment on above: PATIENT NOT FASTINGP ERFORMED BY: RADHA [place] [id number] [facility] [id number] Information: [id number] RBC Auto #/vol (Bld) 4.88 {x10E6/uL} Normal 3.77-5.28 [facility] Work Phone: WBC #/vol (Bld) 7.2 {x10E3/uL} Normal 3.4-10.8 Compr [facility] Internal Medicine Work Phone: Comment on above: PATIENT NOT FASTINGP ERFORMED BY: CB [facility] Trlbdy1865 [address] [facility] [id number] Information: [id number] WBC Auto #/vol (Bld) 7.2 {x10E3/uL} Normal 3.4-10.8 [facility] Work Phone: HgA1C , Office ([id number])Ordere d By: Anabell Mcclure on 10-20-2013 Hemoglobin A1c/Hemoglobin.total mass fraction (Bld) 6.6 % Normal 4.6 - 7.1 Comprehensiv e Internal Medicine Work Phone: METABOLIC PANEL, COMPREHENSI VE (18184)Ordered By: Manufacturing Machine Operator on 10-20-2013 Albumin mass conc 4.3 g/dL Normal 3.6-4.8 Compreh ensive Internal Medicine Work Phone: Comment on above: PATIENT NOT FASTINGP ERFORMED BY: CB [facility] Nhlilh7117 [address] [facility] [id number] Albumin/Globulin mass ratio 1.7 {ratio} Normal 1.1-2.5 [facility] Internal Medicine Work Phone: Comment on above: PATIENT NOT FASTINGP ERFORMED BY: CB [facility] Rscuel0539 [address] [facility] [id number] ALP enzyme act/vol 78 [iU]/L Normal 39-117 Compre [facility] Internal Medicine Work Phone: Comment on above: PATIENT NOT FASTINGP ERFORMED BY: CB [facility] Cxacsx5270 [address] [facility] [id number] ALT enzyme act/vol 21 [iU]/L Normal 0-32 [facility] Work Phone: Comment on above: PATIENT NOT FASTINGP ERFORMED BY: CB [facility] Vmxill4829 [address] [facility] [id number] AST enzyme act/vol 20 [iU]/L Normal 0-40 [facility] Work Phone: Comment on above: PATIENT NOT FASTINGP ERFORMED BY: RADHA [facility] Gtfpky0660 Lam RoadDublin [place] [id number] Bilirubin mass conc 0.4 mg/dL Normal 0.0-1.2 Compr ehensive Internal Medicine Work Phone: Comment on above: PATIENT NOT FASTINGP ERFORMED BY: CB [facility] Jhqfkq7497 Lam RoadDublin [place] [id number] Calcium mass conc 9.4 mg/dL Normal 8.6-10.2 Compreh ensive Internal Medicine Work Phone: Comment on above: PATIENT NOT FASTINGP ERFORMED BY: CB [facility] Tkngyb8491 Lam Roadblin [place] [id number] Chloride molar conc 102 mmol/L Normal 97-108 Compr [facility] Internal Medicine Work Phone: Comment on above: PATIENT NOT FASTINGP ERFORMED BY: RADHA [facility] Lvlioi8590 Lam RoadNovant Health [facility] Centerin [place] [id number] CO2 molar conc 23 mmol/L Normal 18-29 Comprehens avni Internal Medicine Work Phone: Comment on above: PATIENT NOT FASTINGP ERFORMED BY: RADHA LabKatty HernandezNzykwe8147 Lam Roadblin [place] [id number] Creatinine mass conc 0.88 mg/dL Normal 0.57-1.00 Comp [facility] Internal Medicine Work Phone: Comment on above: PATIENT NOT FASTINGP ERFORMED BY: CB [facility] Qxibiu6023 Lam RoadNovant Health [facility]ern[facility] Centerin [place] [id number] GFR/1.73 sq M predicted among blacks CKD-EPI vol rate/area (S/P/Bld) 82 mL/min/1.73 Normal Comprehensiv e Internal Medicine Work Phone: Comment on above: PATIENT NOT FASTINGP ERFORMED BY: CB [facility] Dcjlyo3235 Lam RoadDublin [place] [id number] GFR/1.73 sq M predicted among non-blacks CKD-EPI vol rate/area (S/P/Bld) 71 mL/min/1.73 Normal [facility] Work Phone: Comment on above: PATIENT NOT FASTINGP ERFORMED BY: CB [facility] Mdyjdc1485 Lam RoadDublin [place] [id number] Globulin Calculated mass conc (S) 2.6 g/dL Normal 1.5-4.5 [facility] Work Phone: Globulin mass conc (S) 2.6 g/dL Normal 1.5-4.5 [facility] Work Phone: Comment on above: PATIENT NOT FASTINGP ERFORMED BY: CB [facility] Wjxwyt4489 Lam RoadDublin [place] [id number] Glucose mass conc 97 mg/dL Normal 65-99 Compreh ensive Internal Medicine Work Phone: Comment on above: PATIENT NOT FASTINGP ERFORMED BY: CB [facility] Zencsl6485 Lam RoadDublin [place] [id number] Potassium molar conc 4.1 mmol/L Normal 3.5-5.2 Comp rehensive Internal Medicine Work Phone: Comment on above: PATIENT NOT FASTINGP ERFORMED BY: CB [facility] Omwlhp6227 Lam RoadDublin [place] [id number] Protein mass conc 6.9 g/dL Normal 6.0-8.5 Compreh ensive Internal Medicine Work Phone: Comment on above: PATIENT NOT FASTINGP ERFORMED BY: CB [facility] Aubphu8973 Lam RoadDublin [place] [id number] Sodium molar conc 142 mmol/L Normal 134-144 Compreh ensive Internal Medicine Work Phone: Comment on above: PATIENT NOT FASTINGP ERFORMED BY: CB [facility] Fryxjk7748 Lam RoadDublin [place] [id number] Urea nitrogen mass conc 12 mg/dL Normal 8-27 [facility] Work Phone: Comment on above: PATIENT NOT FASTINGP ERFORMED BY: CB [facility] Dnemle8866 Lam RoadDublin [place] [id number] Urea nitrogen/Creatinine mass ratio 14 mg/mg Normal 11-26 [facility] Work Phone: Comment on above: PATIENT NOT FASTINGP ERFORMED BY: SCM-GL Krsbgq3232 WangYoublin [place] [id number] PT (Prothrobim Time) (23902) Ordered By: Manufacturing Machine Operator on 10-20-2013 INR Coag RelTime (PPP) 1.0 {INR} Normal 0.8-1.2 [facility] Internal Medicine Work Phone: Comment on above: Reference interval i s for non-anticoagulated patients. . Suggested INR therapeutic range for Vitamin K antagonist therapy: Standard Dose (moderate intensity therapeutic range): 2.0 - 3.0 Higher intensity therapeutic range 2.5 - 3.5 PATIENT NOT FASTINGP ERFORMED BY: SCM-GL Jbydpj0649 WangYouLifeBrite [facility] [id number] Prothrombin time (PT) Coag time (PPP) 10.1 {sec} Normal 9.1-12.0 [facility] Internal Medicine Work Phone: Comment on above: PATIENT NOT FASTINGP ERFORMED BY: Ophtalmopharma70 Lam DeporvillageGood [facility] Hospital [id number] PTT (Activated Partial Throm boplastin Time) (07089)Ordered By: Manufacturing Machine Operator on 10-20-2013 aPTT Coag time (Bld) 28 {sec} Normal 24-33 [facility] Internal Medicine Work Phone: Comment on above: This test has not be en validated for monitoring unfractionated heparintherapy. aPTT-based therapeutic ranges for unfractionated heparintherapy have not been established. For general guidelines onHeparin monitoring, refer to the [facility] Directory of Services. aPTT Coag time (PPP) 28 {sec} Normal 24-33 [facility] Internal Medicine Work Phone: Comment on above: This test has not be en validated for monitoring unfractionated heparintherapy. aPTT-based therapeutic ranges for unfractionated heparintherapy have not been established. For general guidelines onHeparin monitoring, refer to the [facility] Directory of Services. PATIENT NOT FASTINGP ERFORMED BY: SCM-GL Gpnvrn[address] [place] [id number] SED RATE ERYTHROCYTE ([id number]) Ordered By: Manufacturing Machine Operator on 10-20-2013 ESR Velocity (Bld) 6 mm/h Normal 0-40 [facility] Internal Medicine Work Phone: Comment on above: PATIENT NOT FASTINGP ERFORMED BY: RADHA [facility] Apeggi33[address] Lam RoadDublin [place] [id number] Systemic Lupus Profile AOrde red By: Manufacturing Machine Operator on 10-20-2013 Chromatin Ab Qn <0.2 Normal 0.0-0.9 [facility] Internal Medicine Work Phone: Comment on above: PATIENT NOT FASTINGP ERFORMED BY: RADHA [facility] Mxnkiu8540 Lam RoadNovant Health [facility]ers[facility] Centerin [place] [id number] Information: [id number] DNA double strand Ab Qn (S) 5 {IU/mL} Normal 0-9 [facility] Work Phone: Comment on above: Negative <5 Equivoca l 5 - 9 Positive >9 PATIENT NOT FASTINGP ERFORMED BY: RADHA [facility] Ozqjiz1625 [address] [facility] [place] [id number] Information: [id number] Rheumatoid factor Qn 7.3 {IU/mL} Normal 0.0-13.9 [facility] Internal Medicine Work Phone: Comment on above: PATIENT NOT FASTINGP ERFORMED BY: RADHA Kelton Bkiwxv7659 [address] [facility] [place] [id number] Information: [id number] Ribonucleoprotein extractable nuclear Ab Qn (S) 0.2 {AI} Normal 0.0-0.9 [facility] Work Phone: Comment on above: PATIENT NOT FASTINGP ERFORMED BY: RADHA [facility] Qxbiqt1092 Lam RoadNovant Health Kernersville [facility] Centerin [place] [id number] Information: [id number] Sjogrens syndrome-A extractable nuclear Ab Qn (S) 3.4 {AI} Abnormal 0.0-0.9 [facility] Work Phone: Comment on above: PATIENT NOT FASTINGP ERFORMED BY: RADHA [facility] Nvgyne1586 [address] [facility] [place] [id number] Information: [id number] Sjogrens syndrome-B extractable nuclear Ab Qn (S) <0.2 Normal 0.0-0.9 [facility] Work Phone: Comment on above: PATIENT NOT FASTINGP ERFORMED BY: CB [facility] Ekyoix20[address] RoadDublin [place] [id number] Information: [id number] [place] extractable nuclear Ab Qn (S) <0.2 Normal 0.0-0.9 [facility] Work Phone: Comment on above: PATIENT NOT FASTINGP ERFORMED BY: CB [facility] Vxcige2343 Lam RoadDuin [place] [id number] Information: [id number] Written AuthorizationOrdered By: Manufacturing Machine Operator on 10-20-2013 Written Authorization WAR Normal Com prehensive Internal Medicine Work Phone: Comment on above: Written Authorizatio n Received.Authorization received from CHRISTIN ROSE [id number] by Elvia Valle PATIENT NOT FASTINGP ERFORMED BY: CB [facility] Tmzskm3248 Lam [facility] [place] [id number] Hemoglobin Glyclated (HGB A1 C) ([id number])Ordered By: Manufacturing Machine Operator on 09-20-2013 Hemoglobin A1c/Hemoglobin.total mass fraction (Bld) 6.1 % Abnormal 4.8-5.6 Comprehensiv e Internal Medicine Work Phone: Comment on above: . Increased risk for diabetes: 5.7 - 6.4 Diabetes: >6.4 Glycemic control for adults with diabetes: <7.0 PATIENT NOT FASTINGP ERFORMED BY: CB [facility] Ekikdu7870 Lam RoadDuin [place] [id number] T3, FREE (TRIDOTHYRONINE) (0 [id number])Ordered By: Manufacturing Machine Operator on 09-20-2013 T3 free mass conc 3.1 pg/mL Normal 2.0-4.4 Compreh ensive Internal Medicine Work Phone: Comment on above: PATIENT NOT FASTINGP ERFORMED BY: CB [facility] Kfvyys2299 [address] RoadDublin [place] [id number] T4, FREE (THYROXINE) ([id number]) Ordered By: Manufacturing Machine Operator on 09-20-2013 T4 free mass conc 1.28 ng/dL Normal 0.82-1.77 Compreh ensive Internal Medicine Work Phone: Comment on above: PATIENT NOT FASTINGP ERFORMED BY: [facility]6370 [facility] [id number] TSH ([id number])Ordered By: Benson m Service Center Technician on 09-20-2013 Thyrotropin Qn 2.500 {uIU/mL} Normal 0.450-4.50 0 [facility] Work Phone: Comment on above: PATIENT NOT FASTINGP ERFORMED BY: [facility]6370 [facility] [id number] Information: [id number] BILAT SCRN DIGITAL & CADOrde red By: Manufacturing Machine Operator on 08-10-2012 BILAT SCRN DIGITAL & CAD See Note Normal [facility] Work Phone: Comment on above: MAMMOGRAPHY - BILATE RAL SCREENING REASON FOR EXAM: Female, 61 years old. Routine annual screeningexamination. PERTINENT HISTORY: Grandmother with breast cancer. TECHNIQUE: Digital examination. Mediolateral oblique (MLO) andcraniocaudad (CC) views of both breasts were obtained. CAD: CAD wasperformed on this study. COMPARISON: Comparison is made with prior study dated September 25, 2004. FINDINGS:The breast composition is composed of scattered fibroglandular tissuesranging from 25% to 50% of the breast. There are no dominant masses or suspicious calcifications. No other significant abnormalities are identified. There has been nosignificant change since the prior study. IMPRESSION:Stable bilateral screening mammogram. Yearly follow-up recommended. (A) ASSESSMENT CATEGORY:BIRADS Category 2: Benign finding(s). A letter regarding these resultswill be sent to the patient by the facility within 30 days. Approximately 10% of breast cancers are not detected by mammography. Anormal mammogram should not delay biopsy of a clinically suspiciousabnormality. Signed:Ariel Cleveland M.D.August 10, 2012 at 8:34:42 AM [id number] Signed GP/GP If you are the referring physician and would like to consult with theradiologist who provided this interpretation, please contact Ursula Olsen at [phone]. If this radiologist is unavailable, youwill be directed to another radiologist to assist. If you are a patient with a question regarding this report, pleasecontactyour referring physician directly. Professional Interpretation Provided By: [employer], Phone , These documents contain legally protected and confidential healthinformation intended only for the use of the individual or entity namedabove. If you are not the intended recipient, you are hereby notifiedthatany disclosure, copying, distribution, or other use of these documents isstrictly prohibited. If you have received this information in error,pleasenotify the sender immediately and arrange for the return or destructionofthese documents. Dictated on 08/10/1234 by Aracelis Cleveland MDranscribed on 08/10/1236 by ITS IMPORTSign by Ariel Cleveland MD on 08/10/12836 Sign by: Ariel Cleveland MD LIPID PANEL ([id number])Ordered B y: Manufacturing Machine Operator on 07-22-2012 Cholesterol in HDL mass conc 38 mg/dL Abnormal [facility] Work Phone: Comment on above: According to ATP-III Guidelines, HDL-C >59 mg/dL is considered anegative risk factor for CHD. PATIENT WAS FASTINGP ERFORMED BY: [facility]Dzmqjw[address] [place] [place] [id number] Information: [id number] Cholesterol in LDL mass conc 115 mg/dL Abnormal 0-99 [facility] Work Phone: Comment on above: PATIENT WAS FASTINGP ERFORMED BY: RADHA Hernandezlin6370 [facility] [id number] Information: [id number] Cholesterol in LDL/Cholesterol in HDL mass ratio 3.0 {ratio_units} Normal 0.0-3.2 [facility] Work Phone: Comment on above: PATIENT WAS FASTINGP ERFORMED BY: [place] [id number] [facility] [id number] Information: [id number] Cholesterol in VLDL mass conc 33 mg/dL Normal 5-40 [facility] Work Phone: Comment on above: PATIENT WAS FASTINGP ERFORMED BY: [place] [id number] [facility] [id number] Information: [id number] Cholesterol mass conc 186 mg/dL Normal 100-199 [facility] prehensive Internal Medicine Work Phone: Comment on above: PATIENT WAS FASTINGP ERFORMED BY: RADHA Melara Vgjtqe2977 [facility] [id number] Information: [id number] Triglyceride mass conc 165 mg/dL Abnormal 0-149 [facility] Work Phone: Comment on above: PATIENT WAS FASTINGP ERFORMED BY: [place] [id number] [facility] [id number] Information: [id number] T3, FREE (TRIDOTHYRONINE) (3 [id number])Ordered By: Manufacturing Machine Operator on 07-22-2012 T3 free mass conc 3.2 pg/mL Normal 2.0-4.4 [facility] Internal [facility] Work Phone: Comment on above: PATIENT WAS FASTINGP ERFORMED BY: [facility]6370 [facility] [id number] T4, FREE (THYROXINE) ([id number]) Ordered By: Manufacturing Machine Operator on 07-22-2012 T4 free mass conc 1.24 ng/dL Normal 0.82-1.77 Compreh ensive Internal Medicine Work Phone: Comment on above: PATIENT WAS FASTINGP ERFORMED BY: Amity Ngmpdc5800 [facility]Barn[facility] [id number] TSH ([id number])Ordered By: Syste m Service Center Technician on 07-22-2012 Thyrotropin Qn 4.330 {uIU/mL} Normal 0.450-4.50 0 [facility] Work Phone: Comment on above: PATIENT WAS FASTINGP ERFORMED BY: [facility] Ajhvcc7981 LamBarnes[facility] [id number] CHEST, PA AND LATERALOrdered By: Manufacturing Machine Operator on 02-17-2012 CHEST, PA AND LATERAL See Note Normal Com prehensive Internal Medicine Work Phone: Comment on above: PROCEDURE: X-RAY [facility] REASON FOR EXAM: Female, 61 years old. COPD, bronchitis TECHNIQUE: Frontal and lateral views COMPARISON: May 13, 2010. FINDINGS: The lungs are hyperaerated. There is mild interstitial prominence.Thereis no demonstrated pleural abnormality. Normal heart and pericardium. Normal mediastinum and veronique. Normal visualized pulmonary arteries.Normalvisualized aortic arch and descending thoracic aorta. Normal visualized thoracic spine. Normal visualized ribs, clavicles, andshoulders. IMPRESSION:Hyperaeration with mild interstitial prominence. Signed:Regan Howell D.O.February 17, 2012 at 6:44:02 PM [id number] Signed IF/IF If you are the referring physician and would like to consult with theradiologist who provided this interpretation, please contact Regan Howell D.O.at [phone]. If this radiologist is unavailable, you will be directedto another radiologist to assist. If you are a patient with a question regarding this report, pleasecontactyour referring physician directly. Professional Interpretation Provided By: [employer], Phone , These documents contain legally protected and confidential healthinformation intended only for the use of the individual or entity namedabove. If you are not the intended recipient, you are hereby notifiedthatany disclosure, copying, distribution, or other use of these documents isstrictly prohibited. If you have received this information in error,pleasenotify the sender immediately and arrange for the return or destructionofthese documents. Dictated on 02/17/12 1043 by Grisel Howell DOinTranscribed on 02/17/121847 by ITS IMPORTSign by Regan Howell DO on 02/17/121848 Sign by: Regan Howell DO FREE [id number] By: System Suzanne green on 07-07-2010 T3 free mass conc 2.6 pg/mL Normal 2.18-3.98 Compreh ensive Internal Medicine Work Phone: GLUPOrdered By: System Manag er on 07-07-2010 GLUP 104 mg/dL Normal [facility] Work Phone: Comment on above: GLU,2HPPG 75gm GLUC PPG GLUP from [id number]:[id number]. T4 FREE DIRECTOrdered By: Feroz stem Service Center Technician on 07-07-2010 T4 free mass conc 1.04 ng/dL Normal 0.76-1.46 Compreh ensive Internal Medicine Work Phone: TSHOrdered By: System Manage r on 07-07-2010 Thyrotropin Qn 3.19 {uIU/mL} Normal 0.358-3.74 Compreh ensive Internal Medicine Work Phone: AMYOrdered By: System Manage r on 05-13-2010 CAILIN 42 U/L Normal 25-115 [facility] Work Phone: CBCD,SMEAR DIFFOrdered By: S ystem Service Center Technician on 05-13-2010 Band form neutrophils/100 WBC (Bld) 2 % Normal 0-5 [facility] Work Phone: Band form neutrophils/100 WBC Manual cnt (Bld) 2 % Normal 0-5 [facility] Work Phone: Erythrocyte distribution width Auto Ratio (RBC) 15.1 % Abnormal 11.6-14.6 [facility] Work Phone: Erythrocyte distribution width Ratio (RBC) 15.1 % Abnormal 11.6-14.6 [facility] Work Phone: Hematocrit Auto Volume Fraction (Bld) 42.3 % Normal 37-47 Comprehens avni Internal Medicine Work Phone: Hematocrit Volume Fraction (Bld) 42.3 % Normal 37-47 [facility] Work Phone: Hemoglobin mass conc (Bld) 14.6 g/dL Normal 12.0-16.0 [facility] Work Phone: Lymphocytes/100 WBC (Bld) 41 % Normal 19-41 [facility] Work Phone: Lymphocytes/100 WBC Auto (Bld) 41 % Normal 19-41 [facility] Work Phone: MCH Auto Entitic mass (RBC) 30.4 pg Normal 27.0-32.0 [facility] Work Phone: MCH Entitic mass (RBC) 30.4 pg Normal 27.0-32.0 [facility] Work Phone: MCHC Auto mass conc (RBC) 34.5 g/dL Normal 32-36 [facility] Work Phone: MCHC mass conc (RBC) 34.5 g/dL Normal 32-36 Comp rehensive Internal Medicine Work Phone: MCV Auto Entitic volume (RBC) 88.0 fL Normal 81-99 [facility] Work Phone: MCV Entitic volume (RBC) 88.0 fL Normal 81-99 [facility] Work Phone: Monocytes/100 WBC (Bld) 5 % Normal 0-10 [facility] Work Phone: Monocytes/100 WBC Auto (Bld) 5 % Normal 0-10 [facility] Work Phone: Neutrophils #/vol (Bld) 7.0 3/uL Normal 2.0-7.7 [facility] Work Phone: Neutrophils Auto #/vol (Bld) 7.0 3/uL Normal 2.0-7.7 [facility] Work Phone: Platelets #/vol (Bld) 282 10*3/uL Normal 150-450 [facility] Work Phone: Platelets #/vol (Bld) SeeNote Normal Com prehensive Internal Medicine Work Phone: Comment on above: Result: ADEQUATE Platelets Auto #/vol (Bld) 282 10*3/uL Normal 150-450 [facility] Work Phone: RBC #/vol (Bld) 4.80 {M/mm3} Normal 4.2-5.4 Compreh ensive Internal Medicine Work Phone: RBC Auto #/vol (Bld) 4.80 {M/mm3} Normal 4.2-5.4 [facility] Work Phone: WBC #/vol (Bld) 9.5 10*3/uL Normal 4.4-11.0 Comprehe nsive Internal Medicine Work Phone: WBC Auto #/vol (Bld) 9.5 10*3/uL Normal 4.4-11.0 Com prehensive Internal Medicine Work Phone: CBCD,SMEAR DIFF SeeNote Normal Comprehen [facility] Internal Medicine Work Phone: Comment on above: Result: NORM C+C Result: ADEQUATE CLINICAL:Female, 59 years old. Cough all winter. X-RAY EXAMINATION - CHEST TECHNIQUE:PA and lateral views of the chest. COMPARISON:February 11, 2009 FINDINGS: The lungs are expanded. There is no demonstrated pulmonary parenchymalabnormality. There is minimal increased density in the right medial basewhich was present previously. There is no demonstrated pleuralabnormality. The heart is normal in size and morphology. Normal mediastinum and veronique. Normal visualized pulmonary arteries. Normal visualized aortic arch anddescending thoracic aorta. There are diffuse degenerative changes of the visualized thoracic spine. IMPRESSION:No acute pulmonary abnormalities identified. Dictated on 05/13/10 1028 by DALE BOURNE MDTranscribed on 05/13/10 1253 by ITS IMPORTSign by DALE BOURNE MD on 05/13/10 1254 Sign by: STEFFEN OAKLEY,DALE CBCD,SMEAR DIFF 100 1 Normal [facility] Internal Medicine Work Phone: CBCD,SMEAR DIFF 52 % Normal 47-70 [facility] Internal [facility] Work Phone: CBCD,SMEAR DIFF 2 % Normal 0-5 Comprehlos [facility] Internal Medicine Work Phone: COMP METABOLICOrdered By: Feroz stem Service Center Technician on 05-13-2010 Albumin mass conc 3.9 g/dL Normal 3.4-5.0 [facility] Internal Medicine Work Phone: Albumin/Globulin mass ratio 1.1 {RATIO} Normal 0.9-2.4 [facility] Internal Medicine Work Phone: ALP enzyme act/vol 77 U/L Normal 50-136 [facility] Internal Medicine Work Phone: ALT enzyme act/vol 48 U/L Normal 12-78 [facility] Internal Medicine Work Phone: Anion gap 3 molar conc 10 mmol/L Normal 5-15 [facility] Internal Medicine Work Phone: Anion gap molar conc 10 mmol/L Normal 5-15 [facility] Work Phone: AST enzyme act/vol 21 U/L Normal 15-37 [facility] Internal Medicine Work Phone: Bilirubin mass conc 0.50 mg/dL Normal 0.00-1.00 [facility] Internal Medicine Work Phone: Calcium mass conc 9.2 mg/dL Normal 8.5-10.1 [facility] Internal Medicine Work Phone: Chloride molar conc 101 mmol/L Normal 98-107 [facility] Internal Medicine Work Phone: CO2 molar conc 28.0 mmol/L Normal 21.0-32.0 [facility] Internal Medicine Work Phone: Creatinine mass conc 0.8 mg/dL Normal 0.6-1.0 [facility] Internal Medicine Work Phone: GFR/1.73 sq M predicted among blacks MDRD vol rate/area (S/P/Bld) 95 mL/min/{1.73_m2} Normal Comprehe nsive Internal Medicine Work Phone: GFR/1.73 sq M.predicted MDRD (S/P/Bld) [Vol rate/Area] 78 mL/min/{1.73_m2} Normal Comprehensiv e Internal Medicine Work Phone: GFR/1.73 sq M.predicted MDRD vol rate/area 78 mL/min/{1.73_m2} Normal Comprehensiv e Internal Medicine Work Phone: Globulin Calculated mass conc (S) 3.7 g/dL Normal 2.7-4.2 [facility] Work Phone: Globulin mass conc (S) 3.7 g/dL Normal 2.7-4.2 [facility] Work Phone: Glucose mass conc 97 mg/dL Normal 70-110 Compreh ensive Internal Medicine Work Phone: Potassium molar conc 4.6 mmol/L Normal 3.5-5.1 Comp rehensive Internal Medicine Work Phone: Protein mass conc 7.6 g/dL Normal 6.4-8.2 Compreh ensive Internal Medicine Work Phone: Sodium molar conc 139 mmol/L Normal 136-145 Compreh ensive Internal Medicine Work Phone: Urea nitrogen mass conc 12 mg/dL Normal 7-18 [facility] Work Phone: Urea nitrogen/Creatinine mass ratio 15.0 {RATIO} Normal 10-20 [facility] Work Phone: D-DIMER QUANTOrdered By: Sys tem Service Center Technician on 05-13-2010 D-DIMER QUANT <200 Normal Comprehensi ve Internal Medicine Work Phone: Comment on above: NORMAL D-Dimer level indicates no DVT or PE. LIPASEOrdered By: System Man ager on 05-13-2010 LIPASE 192 U/L Normal 70-290 [facility] Work Phone: Comment on above: Please note:LIPASE r evised reference range effective 09. T3, FREE (TRIDOTHYRONINE) (8 5620)Ordered By: Manufacturing Machine Operator on 02-14-2010 T3 free mass conc 3.3 pg/mL Normal 2.0-4.4 Compreh ensive Internal Medicine Work Phone: Comment on above: PERFORMED BY: [place] [id number] T4, FREE (THYROXINE) ([id number]) Ordered By: Manufacturing Machine Operator on 02-14-2010 T4 free mass conc 1.22 ng/dL Normal 0.82-1.77 Compreh ensive Internal Medicine Work Phone: Comment on above: PERFORMED BY: [place] [id number] TSH ([id number])Ordered By: Vulevúe m Service Center Technician on 02-14-2010 Thyrotropin Qn 4.080 {uIU/mL} Normal 0.450-4.50 0 [facility] Work Phone: Comment on above: PERFORMED BY: [facility] [id number] Anti-TPO Antibody ([id number])Ord ered By: Manufacturing Machine Operator on 12-24-2009 Thyroperoxidase Ab Qn 17 {IU/mL} Normal 0-34 Com prehensive Internal Medicine Work Phone: Comment on above: PATIENT NOT FASTINGP ERFORMED BY: [employer] [facility]You[facility] [id number] T3, FREE (TRIDOTHYRONINE) ([id number])Ordered By: Manufacturing Machine Operator on 12-24-2009 T3 free mass conc 2.9 pg/mL Normal 2.0-4.4 Compreh ensive Internal Medicine Work Phone: Comment on above: PATIENT NOT FASTINGP ERFORMED BY: [employer]70 WangYouin [place] [id number] T4, FREE (THYROXINE) ([id number]) Ordered By: Manufacturing Machine Operator on 12-24-2009 T4 free mass conc 1.23 ng/dL Normal 0.82-1.77 Compreh ensive Internal Medicine Work Phone: Comment on above: PATIENT NOT FASTINGP ERFORMED BY: RADHA [facility] Hbqacg3059 Lam Roadblin [place] [id number] Information: [id number] C-REACTIVE PROTEIN ([id number])Or dered By: Manufacturing Machine Operator on 12-11-2009 CRP mass conc 5.1 mg/L Abnormal 0.0-4.9 Comprehensi Internal Medicine Work Phone: Comment on above: PATIENT NOT FASTINGP ERFORMED BY: CB [facility] Wctplc4559 Lam RoadDublin [place] [id number] CALCIFIDIOL (22070) VIT D 25 Ordered By: Manufacturing Machine Operator on 12-11-2009 Calcitriol mass conc 35.5 ng/mL Normal 32.0-100.0 [facility] Internal Medicine Work Phone: Comment on above: Recent studies consi neelima the lower limit of 32.0 ng/mL to be athreshold for optimal health.Khari OCAMPO. J Nutr. 2004;135(2):317-22. PATIENT NOT FASTINGP ERFORMED BY: [facility] Iwbjtq5861 [address] [facility] [place] [id number] CBC (AUTO) (00753)Ordered By : Manufacturing Machine Operator on 12-11-2009 Erythrocyte distribution width Auto Ratio (RBC) 14.6 % Normal 11.7-15.0 [facility] Internal Medicine Work Phone: Erythrocyte distribution width Ratio (RBC) 14.6 % Normal 11.7-15.0 [facility] Work Phone: Comment on above: PATIENT NOT FASTINGP ERFORMED BY: [facility] Dnkcyo2296 Lam RoadNovant Health [facility] Centerin [place] [id number] Hematocrit Auto Volume Fraction (Bld) 45.0 % Abnormal 34.0-44.0 Comprehens avni Internal Medicine Work Phone: Hematocrit Volume Fraction (Bld) 45.0 % Abnormal 34.0-44.0 [facility] Work Phone: Comment on above: PATIENT NOT FASTINGP ERFORMED BY: [facility] Gqynme3919 Lam [facility] [place] [id number] Hemoglobin mass conc (Bld) 14.6 g/dL Normal 11.5-15.0 [facility] Work Phone: Comment on above: PATIENT NOT FASTINGP ERFORMED BY: RADHA Hernandezlin6370 [facility] [id number] MCH Auto Entitic mass (RBC) 29.2 pg Normal 27.0-34.0 [facility] Work Phone: MCH Entitic mass (RBC) 29.2 pg Normal 27.0-34.0 [facility] Work Phone: Comment on above: PATIENT NOT FASTINGP ERFORMED BY: RADHA Lees6370 [facility] [id number] MCHC Auto mass conc (RBC) 32.4 g/dL Normal 32.0-36.0 [facility] Work Phone: MCHC mass conc (RBC) 32.4 g/dL Normal 32.0-36.0 [facility] Internal Medicine Work Phone: Comment on above: PATIENT NOT FASTINGP ERFORMED BY: RADHA Hernandezlin6370 [facility] [id number] MCV Auto Entitic volume (RBC) 90 fL Normal 80-98 [facility] Work Phone: MCV Entitic volume (RBC) 90 fL Normal 80-98 [facility] Work Phone: Comment on above: PATIENT NOT FASTINGP ERFORMED BY: RADHA Hernandezlin6370 [facility] [id number] Platelets #/vol (Bld) 290 {x10E3/uL} Normal 140-415 [facility] Work Phone: Comment on above: PATIENT NOT FASTINGP ERFORMED BY: RADHA LabKatty HernandezVqzigg1882 [facility] [id number] Platelets Auto #/vol (Bld) 290 {x10E3/uL} Normal 140-415 Comprehensive Internal Medicine Work Phone: RBC #/vol (Bld) 5.00 {x10E6/uL} Normal 3.80-5.[address] [facility] Work Phone: Comment on above: PATIENT NOT FASTINGP ERFORMED BY: RADHA [facility] [id number] [facility] [id number] RBC Auto #/vol (Bld) 5.00 {x10E6/uL} Normal 3.80-5.10 [facility] Work Phone: WBC #/vol (Bld) 6.8 {x10E3/uL} Normal 4.0-10.5 Compr ensive Internal Medicine Work Phone: Comment on above: PATIENT NOT FASTINGP ERFORMED BY: RADHA [facility] [id number] [facility] [id number] WBC Auto #/vol (Bld) 6.8 {x10E3/uL} Normal 4.0-10.5 [facility] Work Phone: Folate ([id number])Ordered By: [facility] Technician on 12-11-2009 Folate mass conc ng/mL Normal Comprehe nsive Internal Medicine Work Phone: Comment on above: Indeterminate: 2.2 - 3.0 Deficient: <2.2 PATIENT NOT FASTINGP ERFORMED BY: RADHA [facility] Pnavpx2002 [facility] [id number] METABOLIC PANEL, COMPREHENSI VE ([id number])Ordered By: Manufacturing Machine Operator on 12-11-2009 Albumin mass conc 4.4 g/dL Normal 3.5-5.5 Compreh ensive Internal Medicine Work Phone: Comment on above: PATIENT NOT FASTINGP ERFORMED BY: CB [facility] [id number] [facility] [id number] Information: [id number] Albumin/Globulin mass ratio 1.5 {ratio} Normal 1.1-2.5 [facility] Work Phone: Comment on above: PATIENT NOT FASTINGP ERFORMED BY: CB [facility] Ciepsr3682 [facility] [id number] Information: [id number] ALP enzyme act/vol 84 [iU]/L Normal 25-150 [facility] Work Phone: Comment on above: PATIENT NOT FASTINGP ERFORMED BY: RADHA Raghav Lees6370 [facility] [id number] Information: [id number] ALT enzyme act/vol 35 [iU]/L Normal 0-40 [facility] Work Phone: Comment on above: PATIENT NOT FASTINGP ERFORMED BY: RADHA Kelton Ltctkw1014 [facility] [id number] Information: [id number] AST enzyme act/vol 28 [iU]/L Normal 0-40 [facility] Internal Medicine Work Phone: Comment on above: PATIENT NOT FASTINGP ERFORMED BY: RADHA Keltonasim HernandezAozooi1407 [facility] [id number] Information: [id number] Bilirubin mass conc 0.3 mg/dL Normal 0.0-1.2 Compr [facility] Internal Medicine Work Phone: Comment on above: PATIENT NOT FASTINGP ERFORMED BY: RADHA Kelton Rzfusd0663 [facility] [id number] Information: [id number] Calcium mass conc 9.8 mg/dL Normal 8.7-10.2 Compreh [facility] Work Phone: Comment on above: PATIENT NOT FASTINGP ERFORMED BY: RADHA Lab[facility] Wuwnyu6038 [facility] [id number] Information: [id number] Chloride molar conc 102 mmol/L Normal 97-108 Compr [facility] Internal Medicine Work Phone: Comment on above: PATIENT NOT FASTINGP ERFORMED BY: RADHA Kelton Zlydhf4585 [facility] [id number] Information: [id number] CO2 molar conc 23 mmol/L Normal 20-32 Comprehens avni Internal Medicine Work Phone: Comment on above: PATIENT NOT FASTINGP ERFORMED BY: RADHA [facility] [id number] [facility] [id number] Information: [id number] Creatinine mass conc 0.96 mg/dL Normal 0.57-1.00 Comp rehensive Internal Medicine Work Phone: Comment on above: PATIENT NOT FASTINGP ERFORMED BY: [facility] Mrukir1593 [facility] [id number] Information: [id number],[id number] GFR/1.73 sq M predicted among blacks MDRD vol rate/area (S/P/Bld) mL/min/{1.73_m2} Normal Comprehensi ve Internal Medicine Work Phone: Comment on above: Note: Persistent red uction for 3 months or more in an eGFR<60 mL/min/1.73 m2 defines CKD. Patients with eGFR values>/=60 mL/min/1.73 m2 may also have CKD if evidence of persistentproteinuria is present. Additional information may be found [email or web address]. PATIENT NOT FASTINGP ERFORMED BY: LabAsc[facility]6370 [facility] [id number] Information: 38550,[id number] GFR/1.73 sq M.predicted MDRD (S/P/Bld) [Vol rate/Area] mL/min/{1.73_m2} Normal [facility] Medicine Work Phone: Comment on above: PATIENT NOT FASTINGP ERFORMED BY: [facility] Vhbqis1382 [facility] [id number] Information: [id number] GFR/1.73 sq M.predicted MDRD vol rate/area mL/min/{1.73_m2} Normal [facility] Medicine Work Phone: Comment on above: PATIENT NOT FASTINGP ERFORMED BY: [facility] Jjhela2071 [facility] [id number] Information: [id number] Globulin Calculated mass conc (S) 3.0 g/dL Normal 1.5-4.5 [facility] Work Phone: Globulin mass conc (S) 3.0 g/dL Normal 1.5-4.5 [facility] Work Phone: Comment on above: PATIENT NOT FASTINGP ERFORMED BY: RADHA Lees6370 [facility] [id number] Information: [id number] Glucose mass conc 75 mg/dL Normal 65-99 Compreh ensive Internal Medicine Work Phone: Comment on above: PATIENT NOT FASTINGP ERFORMED BY: RADHA MelaraTimothy Ville [id number] [facility] [id number] Information: [id number] Potassium molar conc 4.4 mmol/L Normal 3.5-5.2 Comp rehensive Internal Medicine Work Phone: Comment on above: PATIENT NOT FASTINGP ERFORMED BY: RADHA Melara Omlvmd9552 [facility] [id number] Information: [id number],[id number] Protein mass conc 7.4 g/dL Normal 6.0-8.5 Compreh ensive Internal Medicine Work Phone: Comment on above: PATIENT NOT FASTINGP ERFORMED BY: RADHA Hernandezlin6370 [facility] [id number] Information: [id number],[id number] Sodium molar conc 139 mmol/L Normal 135-145 Compreh ensive Internal Medicine Work Phone: Comment on above: PATIENT NOT FASTINGP ERFORMED BY: RADHA [facility]araJefferson [facility]Jdyvdw8983 [facility] [id number] Information: [id number] Urea nitrogen mass conc 13 mg/dL Normal 5-26 [facility] Work Phone: Comment on above: PATIENT NOT FASTINGP ERFORMED BY: RADHA Melara Jbjgds9286 [facility] [id number] Information: [id number],[id number] Urea nitrogen/Creatinine mass ratio 14 mg/mg Normal 8-27 [facility] Work Phone: Comment on above: PATIENT NOT FASTINGP ERFORMED BY: RADHA [facility] Arznvj3[address] RoadDublin [place] [id number] Information: [id number] RHEUMATOID FACTOR-QUANT (494 47)Ordered By: Manufacturing Machine Operator on 12-11-2009 Rheumatoid factor Qn 8.4 {IU/mL} Normal 0.0-13.9 Com prehensive Internal Medicine Work Phone: Comment on above: PATIENT NOT FASTINGP ERFORMED BY: CB [facility] Wuszzd0395 Lam RoadDublin [place] [id number] SED RATE ERYTHROCYTE ([id number]) Ordered By: Manufacturing Machine Operator on 12-11-2009 ESR Velocity (Bld) 12 mm/h Normal 0-30 [facility] Internal Medicine Work Phone: Comment on above: PATIENT NOT FASTINGP ERFORMED BY: [employer] LabCoding Technologiesrp Bbcree0983 Lam RoadDublin [place] [id number] TSH ([id number])Ordered By: Vulevúe m Service Center Technician on 12-11-2009 Thyrotropin Qn 3.970 {uIU/mL} Normal 0.450-4.50 0 [facility] Work Phone: Comment on above: PATIENT NOT FASTINGP ERFORMED BY: [employer] [facility] Ajviku59[address] RoadD[address] [place] [id number] VITAMIN B-12 (CYANOCOBALAMIN ) ([id number])Ordered By: Manufacturing Machine Operator on 12-11-2009 Cobalamin (Vitamin B12) mass conc 425 pg/mL Normal 211-946 [facility] Work Phone: Comment on above: PATIENT NOT FASTINGP ERFORMED BY: CB [facility] Xwhfsv9665 [address] RoadD[address] [place] [id number] Rapid Strep Test, Office (35 446)Ordered By: Yanely Velez on 07-25-2009 S. pyogenes Ag IA Ql (Unsp spec) Negative Normal [facility] Work Phone: CHEST, PA AND LATERALOrdered By: Manufacturing Machine Operator on 02-11-2009 CHEST, PA AND LATERAL See Note Normal Com prehensive Internal Medicine Work Phone: Comment on above: Exam Number: [id number] CLINICAL:Shortness of breath X-RAY EXAMINATION: CHEST TECHNIQUE:Frontal and lateral views of the chest COMPARISON:11/29/07 FINDINGS:The lungs are well expanded. There are no demonstrated pulmonary infiltrates. 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 The heart is normal in size and morphology. Normal visualized pulmonary arteries and peripheral pulmonary vessels. Normal visualized aortic arch and descending thoracic aorta. Normal visualized mediastinum and hilar regions. The visualized osseous structures are normal. IMPRESSION:No active cardiopulmonary process. Reported By: ADELE ARZATE M.D. CBCDOrdered By: [employer] on 02-04-2009 Basophils/100 WBC (Bld) 0.3 % Normal 0-1 [facility] Work Phone: Basophils/100 WBC Auto (Bld) 0.3 % Normal 0-1 [facility] Work Phone: Eosinophils/100 WBC (Bld) 0.0 % Normal 0-5 [facility] Work Phone: Eosinophils/100 WBC Auto (Bld) 0.0 % Normal 0-5 [facility] Work Phone: Erythrocyte distribution width Auto Ratio (RBC) 14.0 % Normal 11.6-14.6 [facility] Work Phone: Erythrocyte distribution width Ratio (RBC) 14.0 % Normal 11.6-14.6 [facility] Work Phone: Hematocrit Auto Volume Fraction (Bld) 42.5 % Normal 37-47 Comprehens [facility] Internal Medicine Work Phone: Hematocrit Volume Fraction (Bld) 42.5 % Normal 37-47 [facility] Internal Medicine Work Phone: Hemoglobin mass conc (Bld) 14.1 g/dL Normal 12.0-16.0 [facility] Work Phone: Lymphocytes/100 WBC (Bld) 28.1 % Normal 19-41 [facility] Internal Medicine Work Phone: Lymphocytes/100 WBC Auto (Bld) 28.1 % Normal 19-41 [facility] Work Phone: MCH Auto Entitic mass (RBC) 30.4 pg Normal 27.0-32.0 [facility] Work Phone: MCH Entitic mass (RBC) 30.4 pg Normal 27.0-32.0 [facility] Work Phone: MCHC Auto mass conc (RBC) 33.1 g/dL Normal 32-36 [facility] Work Phone: MCHC mass conc (RBC) 33.1 g/dL Normal 32-36 [facility] Internal [facility] Work Phone: MCV Auto Entitic volume (RBC) 91.7 fL Normal 81-99 [facility] Work Phone: MCV Entitic volume (RBC) 91.7 fL Normal 81-99 [facility] Internal Medicine Work Phone: Monocytes/100 WBC (Bld) 7.2 % Normal 0-10 [facility] Work Phone: Monocytes/100 WBC Auto (Bld) 7.2 % Normal 0-10 [facility] Work Phone: Neutrophils #/vol (Bld) 5.0 3/uL Normal 2.0-7.7 [facility] Work Phone: Neutrophils Auto #/vol (Bld) 5.0 3/uL Normal 2.0-7.7 [facility] Work Phone: Neutrophils/100 WBC (Bld) 64.4 % Normal 47-70 [facility] Work Phone: Neutrophils/100 WBC Auto (Bld) 64.4 % Normal 47-70 [facility] Work Phone: Platelet mean volume Auto Entitic volume (Bld) 10.0 fL Normal 6.5-12.0 [facility] Work Phone: Platelet mean volume Entitic volume (Bld) 10.0 fL Normal 6.5-12.0 Comprehensi Internal Medicine Work Phone: Platelets #/vol (Bld) 259 10*3/uL Normal 150-450 Co mprehensive Internal Medicine Work Phone: Platelets Auto #/vol (Bld) 259 10*3/uL Normal 150-450 [facility] Work Phone: RBC #/vol (Bld) 4.64 {M/mm3} Normal 4.2-5.4 Compreh ensive Internal Medicine Work Phone: RBC Auto #/vol (Bld) 4.64 {M/mm3} Normal 4.2-5.4 Co mprehensive Internal Medicine Work Phone: WBC #/vol (Bld) 7.8 10*3/uL Normal 4.4-11.0 Comprehe nsive Internal Medicine Work Phone: WBC Auto #/vol (Bld) 7.8 10*3/uL Normal 4.4-11.0 Com prehensive Internal Medicine Work Phone: D-DIMER QUANTOrdered By: Alice tem Service Center Technician on 02-04-2009 D-DIMER QUANT <200 Normal Comprehensi ve Internal Medicine Work Phone: Comment on above: NORMAL D-Dimer level indicates no DVT or PE. RESULTS FAXED [id number] [address] RESENDIZ. Vital Signs Date Time Vital Sign Value Performing Clinician Facility 10-19-2023 13:13-0400 Body mass index (BMI) [Ratio] 40.17 kg/m2 Yemi Milan APRN.PAINTINGS RESTORER Work Phone: [facility] 10-19-2023 13:13-0400 Body temperature 97.7 [degF] Yemi Milan APRN.PAINTINGS RESTORER Work Phone: [facility] 10-19-2023 13:13-0400 Body weight 112.9 kg Yemi Milan APRN.PAINTINGS RESTORER Work Phone: [facility] 10-19-2023 13:13-0400 Diastolic blood pressure 84 mm[Hg] Yemi Milan APRN.PAINTINGS RESTORER Work Phone: [facility] 10-19-2023 13:13-0400 Heart rate 85 /min Yemi Milan APRN.PAINTINGS RESTORER Work Phone: [facility] 10-19-2023 13:13-0400 Respiratory rate 18 /min Yemi Milan TALENT ACQUISITION COORDINATOR.PAINTINGS RESTORER Work Phone: [facility] 10-19-2023 13:13-0400 SaO2% (BldA) [Mass fraction] 97 % Yemi Kayli TALENT ACQUISITION COORDINATOR.PAINTINGS RESTORER Work Phone: [facility] 10-19-2023 13:13-0400 Systolic blood pressure 148 mm[Hg] Yemi Kayli TALENT ACQUISITION COORDINATOR.PAINTINGS RESTORER Work Phone: [facility] 05-08-2023 13:43-0500 Body temperature 97 [degF] Domo Leslie MD Work Phone: [facility] 05-08-2023 13:43-0500 Body weight 109.4 kg Domo Leslie MD Work Phone: [facility] 05-08-2023 13:43-0500 Heart rate 110 /min Domo Leslie MD Work Phone: [facility] 05-08-2023 13:43-0500 Respiratory rate 22 /min Domo Leslie MD Work Phone: [facility] 05-08-2023 13:43-0500 SaO2% (BldA) [Mass fraction] 79 % Domo Leslie MD Work Phone: [facility] 05-02-2023 11:31-0500 Body temperature 97.5 [degF] Eileen Phillips TALENT ACQUISITION COORDINATOR.PAINTINGS RESTORER Work Phone: [facility] 05-02-2023 11:31-0500 Body weight 109.32 kg Eileen Phillips TALENT ACQUISITION COORDINATOR.PAINTINGS RESTORER Work Phone: [facility] 05-02-2023 11:31-0500 Diastolic blood pressure 88 mm[Hg] Eileen Phillips TALENT ACQUISITION COORDINATOR.PAINTINGS RESTORER Work Phone: [facility] 05-02-2023 11:31-0500 Heart rate 100 /min Eileen Phillips TALENT ACQUISITION COORDINATOR.PAINTINGS RESTORER Work Phone: [facility] 05-02-2023 11:31-0500 Respiratory rate 22 /min Eileen Phillips TALENT ACQUISITION COORDINATOR.PAINTINGS RESTORER Work Phone: [facility] 05-02-2023 11:31-0500 SaO2% (BldA) [Mass fraction] 91 % Eileentrenton Phillips TALENT ACQUISITION COORDINATOR.PAINTINGS RESTORER Work Phone: [facility] 05-02-2023 11:31-0500 Systolic blood pressure 130 mm[Hg] Eileen Phillips TALENT ACQUISITION COORDINATOR.PAINTINGS RESTORER Work Phone: [facility] 12-03-2022 10:07-0400 Body temperature 97.81 [degF] Allyssa Singletary TALENT ACQUISITION COORDINATOR.PAINTINGS RESTORER Work Phone: [facility] 12-03-2022 10:07-0400 Body weight 109.86 kg Allyssa Singletary TALENT ACQUISITION COORDINATOR.PAINTINGS RESTORER Work Phone: [facility] 12-03-2022 10:07-0400 Diastolic blood pressure 82 mm[Hg] Allyssa Singletary TALENT ACQUISITION COORDINATOR.PAINTINGS RESTORER Work Phone: [facility] 12-03-2022 10:07-0400 Heart rate 82 /min Allyssa Hayder TALENT ACQUISITION COORDINATOR.PAINTINGS RESTORER Work Phone: [facility] 12-03-2022 10:07-0400 Respiratory rate 16 /min Allyssa Singletary TALENT ACQUISITION COORDINATOR.PAINTINGS RESTORER Work Phone: [facility] 12-03-2022 10:07-0400 SaO2% (BldA) [Mass fraction] 95 % Allyssa Singletary TALENT ACQUISITION COORDINATOR.PAINTINGS RESTORER Work Phone: [facility] 12-03-2022 10:07-0400 Systolic blood pressure 126 mm[Hg] Allyssa Hayder TALENT ACQUISITION COORDINATOR.PAINTINGS RESTORER Work Phone: [facility] 04-22-2022 11:46-0500 Diastolic blood pressure 68 mm[Hg] Andrea Tinsley MD Work Phone: [facility] 04-22-2022 11:46-0500 Heart rate 80 /min Andrea Tinsley MD Work Phone: [facility] 04-22-2022 11:46-0500 Systolic blood pressure 140 mm[Hg] Andrea Tinsley MD Work Phone: [facility] 04-22-2022 11:10-0500 Body height 165.1 cm Andrea Tinsley MD Work Phone: [facility] 04-22-2022 11:10-0500 Body mass index (BMI) [Ratio] 39.97 kg/m2 Andrea Tinsley MD Work Phone: [facility] 04-22-2022 11:10-0500 Body temperature 98.2 [degF] Andrea Tinsley MD Work Phone: [facility] 04-22-2022 11:10-0500 Body weight 108.95 kg Andrea Tinsley MD Work Phone: [facility] 04-22-2022 11:10-0500 Respiratory rate 18 /min Andrea Tinsley MD Work Phone: [facility] 04-22-2022 11:10-0500 SaO2% (BldA) [Mass fraction] 95 % Andrea Tinsley MD Work Phone: [facility] 02-17-2022 10:45-0500 Body temperature 97.39 [degF] Allyssa Singletary APRN.PAINTINGS RESTORER Work Phone: [facility] 02-17-2022 10:45-0500 Body weight 110.68 kg Allyssa Singletary APRN.PAINTINGS RESTORER Work Phone: [facility] 02-17-2022 10:45-0500 Diastolic blood pressure 88 mm[Hg] Allyssa Singletary APRN.PAINTINGS RESTORER Work Phone: [facility] 02-17-2022 10:45-0500 Heart rate 96 /min Allyssa Singletary APRN.PAINTINGS RESTORER Work Phone: [facility] 02-17-2022 10:45-0500 Respiratory rate 20 /min Allyssa Singletary APRN.PAINTINGS RESTORER Work Phone: [facility] 02-17-2022 10:45-0500 SaO2% (BldA) [Mass fraction] 92 % Allyssa Singletary TALENT ACQUISITION COORDINATOR.PAINTINGS RESTORER Work Phone: [facility] 02-17-2022 10:45-0500 Systolic blood pressure 172 mm[Hg] Allysas Singletary TALENT ACQUISITION COORDINATOR.PAINTINGS RESTORER Work Phone: [facility] 08-08-2018 14:39-0400 BMI (Body Mass Index) 40.94 kg/m2 Ele Astudillo [facility] Internal Medicine Work Phone: 08-08-2018 14:39-0400 Body Temperature 96.9 [degF] Ele Astudillo [facility] Internal Medicine Work Phone: Comment on above: Method: Temporal 08-08-2018 14:39-0400 Body weight 111.6 kg Ele Astudillo [facility] Internal Medicine Work Phone: 08-08-2018 14:39-0400 BP Diastolic 80 mm[Hg] Ele Astudillo [facility] Internal Medicine Work Phone: Comment on above: Patient Position: Sitting; Cuff Location : Left Arm; Cuff Size: Standard 08-08-2018 14:39-0400 BP Systolic 141 mm[Hg] Ele Astudillo [facility] Internal Medicine Work Phone: Comment on above: Patient Position: Sitting; Cuff Location : Left Arm; Cuff Size: Standard 08-08-2018 14:39-0400 BSA (Body Surface Area) 2.16 m2 Ele Astudillo [facility] Internal Medicine Work Phone: 08-08-2018 14:39-0400 Height 165.1 cm Ele Astudillo [facility] Internal Medicine Work Phone: 08-08-2018 14:39-0400 Pulse (Heart Rate) 92 /min Ele Astudillo [facility] Internal Medicine Work Phone: Comment on above: Pattern: Regular 08-08-2018 14:39-0400 Pulse Oximetry 93 % Ele Astudillo [facility] Internal Medicine Work Phone: Comment on above: Room air 08-08-2018 14:39-0400 Respiratory Rate 20 /min Ele Astudillo [facility] Internal Medicine Work Phone: Comment on above: Pattern: Labored 08-08-2018 14:39-0400 Weight 111.6 kg Ele Astudillo [facility] Internal Medicine Work Phone: 05-26-2018 09:15-0400 BMI (Body Mass Index) 40.78 kg/m2 Ele Astudillo [facility] Internal Medicine Work Phone: 05-26-2018 09:15-0400 Body Temperature 96.5 [degF] Ele Astudillo [facility] Internal Medicine Work Phone: Comment on above: Method: Temporal 05-26-2018 09:15-0400 Body weight 111.15 kg Ele Astudillo [facility] Internal Medicine Work Phone: 05-26-2018 09:15-0400 BP Diastolic 80 mm[Hg] Ele Astudillo [facility] Internal Medicine Work Phone: Comment on above: Patient Position: Sitting; Cuff Location : Left Arm; Cuff Size: Standard 05-26-2018 09:15-0400 BP Systolic 118 mm[Hg] Ele Astudillo [facility] Internal Medicine Work Phone: Comment on above: Patient Position: Sitting; Cuff Location : Left Arm; Cuff Size: Standard 05-26-2018 09:15-0400 BSA (Body Surface Area) 2.16 m2 Ele Astudillo [facility] Internal Medicine Work Phone: 05-26-2018 09:15-0400 Height 165.1 cm Ele Astudillo [facility] Internal Medicine Work Phone: 05-26-2018 09:15-0400 Pulse (Heart Rate) 77 /min Ele Astudillo [facility] Internal Medicine Work Phone: Comment on above: Pattern: Regular 05-26-2018 09:15-0400 Pulse Oximetry 93 % Ele Astudillo [facility] Internal Medicine Work Phone: Comment on above: Room air 05-26-2018 09:15-0400 Respiratory Rate 18 /min Ele Astudillo [facility] Internal Medicine Work Phone: Comment on above: Pattern: Unlabored 05-26-2018 09:15-0400 Weight 111.15 kg Ele Astudillo [facility] Internal Medicine Work Phone: 04-28-2018 10:42-0500 BMI (Body Mass Index) 40.78 kg/m2 Ele Astudillo [facility] Internal Medicine Work Phone: 04-28-2018 10:42-0500 Body weight 111.15 kg Ele Astudillo [facility] Internal Medicine Work Phone: 04-28-2018 10:42-0500 BP Diastolic 78 mm[Hg] Ele Astudillo [facility] Internal Medicine Work Phone: Comment on above: Patient Position: Sitting; Cuff Location : Left Arm; Cuff Size: Standard 04-28-2018 10:42-0500 BP Systolic 152 mm[Hg] Eel Astudillo [facility] Internal Medicine Work Phone: Comment on above: Patient Position: Sitting; Cuff Location : Left Arm; Cuff Size: Standard 04-28-2018 10:42-0500 BSA (Body Surface Area) 2.16 m2 Ele Astudillo [facility] Internal Medicine Work Phone: 04-28-2018 10:42-0500 Height 165.1 cm Ele Astudillo [facility] Internal Medicine Work Phone: 04-28-2018 10:42-0500 Pulse (Heart Rate) 105 /min Ele Astudillo [facility] Internal Medicine Work Phone: Comment on above: Pattern: Regular 04-28-2018 10:42-0500 Pulse Oximetry 91 % Ele Astudillo [facility] Internal Medicine Work Phone: Comment on above: Room air 04-28-2018 10:42-0500 Respiratory Rate 19 /min Ele Astudillo [facility] Internal Medicine Work Phone: Comment on above: Pattern: Unlabored 04-28-2018 10:42-0500 Weight 111.15 kg Ele Astudillo [facility] Internal Medicine Work Phone: 01-31-2018 14:34-0500 BMI (Body Mass Index) 39.7 kg/m2 Ele Sanders [facility]ni Internal Medicine Work Phone: 01-31-2018 14:34-0500 Body weight 108.21 kg Ele [facility]illo [facility] Work Phone: 01-31-2018 14:34-0500 BP Diastolic 84 mm[Hg] Ele Astudillo [facility] Work Phone: Comment on above: Patient Position: Sitting; Cuff Location : Left Arm; Cuff Size: Large 01-31-2018 14:34-0500 BP Systolic 158 mm[Hg] Ele Astudillo [facility] Work Phone: Comment on above: Patient Position: Sitting; Cuff Location : Left Arm; Cuff Size: Large 01-31-2018 14:34-0500 BSA (Body Surface Area) 2.13 m2 Ele Astudillo [facility] Work Phone: 01-31-2018 14:34-0500 Height 165.1 cm Ele Astudillo [facility] Work Phone: 01-31-2018 14:34-0500 Pulse (Heart Rate) 73 /min Ele Astudillo [facility] Work Phone: Comment on above: Pattern: Regular 01-31-2018 14:34-0500 Pulse Oximetry 97 % Ele [facility] Work Phone: Comment on above: Room air 01-31-2018 14:34-0500 Respiratory Rate 18 /min Ele Astudillo [facility] Internal Medicine Work Phone: Comment on above: Pattern: Unlabored 01-31-2018 14:34-0500 Weight 108.21 kg Ele [facility] Work Phone: 11-09-2017 09:39-0400 BMI (Body Mass Index) 39.6 kg/m2 Ele [facility] Work Phone: 11-09-2017 09:39-0400 Body Temperature 97.4 [degF] Ele [facility] Work Phone: Comment on above: Method: Temporal 11-09-2017 09:39-0400 Body weight 107.96 kg Ele Astudillo [facility] Internal Medicine Work Phone: 11-09-2017 09:39-0400 BP Diastolic 78 mm[Hg] Ele Astudillo [facility] Work Phone: Comment on above: Patient Position: Sitting; Cuff Location : Left Arm; Cuff Size: Standard 11-09-2017 09:39-0400 BP Systolic 140 mm[Hg] Ele Astudillo [facility] Work Phone: Comment on above: Patient Position: Sitting; Cuff Location : Left Arm; Cuff Size: Standard 11-09-2017 09:39-0400 BSA (Body Surface Area) 2.13 m2 Ele Astudillo [facility] Internal Medicine Work Phone: 11-09-2017 09:39-0400 Height 165.1 cm Eel Astudillo [facility] Work Phone: 11-09-2017 09:39-0400 Pulse (Heart Rate) 102 /min Ele Astudillo [facility] Work Phone: Comment on above: Pattern: Regular 11-09-2017 09:39-0400 Respiratory Rate 17 /min Ele Astudillo [facility] Work Phone: Comment on above: Pattern: Unlabored 11-09-2017 09:39-0400 Weight 107.96 kg Ele Astudillo [facility] Medicine Work Phone: 09-15-2017 11:08-0400 BMI (Body Mass Index) 39.44 kg/m2 Ele Astudillo [facility] Internal Medicine Work Phone: 09-15-2017 11:08-0400 Body Temperature 97.9 [degF] Ele Astudillo [facility] Internal Medicine Work Phone: Comment on above: Method: Temporal 09-15-2017 11:08-0400 Body weight 107.5 kg Ele Astudillo [facility] Internal Medicine Work Phone: 09-15-2017 11:08-0400 BP Diastolic 82 mm[Hg] Ele Astudillo [facility] Work Phone: Comment on above: Patient Position: Sitting; Cuff Location : Left Arm; Cuff Size: Standard 09-15-2017 11:08-0400 BP Systolic 176 mm[Hg] Ele Astudillo [facility] Internal Medicine Work Phone: Comment on above: Patient Position: Sitting; Cuff Location : Left Arm; Cuff Size: Standard 09-15-2017 11:08-0400 BSA (Body Surface Area) 2.13 m2 Ele Astudillo [facility] Internal Medicine Work Phone: 09-15-2017 11:08-0400 Height 165.1 cm Ele Astudillo [facility] Work Phone: 09-15-2017 11:08-0400 Pulse (Heart Rate) 81 /min Ele Astudillo [facility] Work Phone: Comment on above: Pattern: Regular 09-15-2017 11:08-0400 Pulse Oximetry 97 % Ele Astudillo [facility] Medicine Work Phone: Comment on above: Room air 09-15-2017 11:08-0400 Respiratory Rate 16 /min Ele Astudillo [facility] Internal Medicine Work Phone: Comment on above: Pattern: Unlabored 09-15-2017 11:08-0400 Weight 107.5 kg Ele Astudillo [facility] Internal [facility] Work Phone: 08-12-2017 13:05-0400 BMI (Body Mass Index) 38.96 kg/m2 Ele Astudillo [facility] Internal Medicine Work Phone: 08-12-2017 13:05-0400 Body weight 106.2 kg Ele Astudillo [facility] Work Phone: 08-12-2017 13:05-0400 BP Diastolic 94 mm[Hg] Ele Astudillo [facility] Internal Medicine Work Phone: Comment on above: Patient Position: Sitting; Cuff Location : Left Arm; Cuff Size: Large 08-12-2017 13:05-0400 BP Systolic 158 mm[Hg] Ele Astudillo [facility] Internal Medicine Work Phone: Comment on above: Patient Position: Sitting; Cuff Location : Left Arm; Cuff Size: Large 08-12-2017 13:05-0400 BSA (Body Surface Area) 2.12 m2 Ele Astudillo [facility] Work Phone: 08-12-2017 13:05-0400 Height 165.1 cm Ele Astudillo [facility] Work Phone: 08-12-2017 13:05-0400 Pulse (Heart Rate) 107 /min Ele Astudillo [facility] Work Phone: Comment on above: Pattern: Regular 08-12-2017 13:05-0400 Pulse Oximetry 92 % Ele Astudillo [facility] Work Phone: Comment on above: Room air 08-12-2017 13:05-0400 Respiratory Rate 18 /min Ele Astudillo [facility] Work Phone: Comment on above: Pattern: Unlabored 08-12-2017 13:05-0400 Weight 106.2 kg Ele Astudillo [facility] Work Phone: 12-02-2016 05:56-0400 BMI (Body Mass Index) 38.27 kg/m2 Marla Lailaho [facility] [place] Work Phone: 12-02-2016 05:56-0400 Body Temperature 98.8 [degF] Marla Yensho [employer] [place] Work Phone: 12-02-2016 05:56-0400 BP Diastolic 106 mm[Hg] Marla Yensho [facility] [place] Work Phone: 12-02-2016 05:56-0400 BP Systolic 180 mm[Hg] Amrla Yensho [facility] [place] Work Phone: 12-02-2016 05:56-0400 Height 165.1 cm Marla Lailaho [facility] [place] Work Phone: 12-02-2016 05:56-0400 Pulse (Heart Rate) 98 /min Marla Covarrubias [facility] Work Phone: 12-02-2016 05:56-0400 Respiratory Rate 18 /min [facility] Work Phone: 12-02-2016 05:56-0400 Weight 104.33 kg [facility] Work Phone: 10-12-2016 09:18-0400 BMI (Body Mass Index) 38.13 kg/m2 Ele Astudillo [facility] Work Phone: 10-12-2016 09:18-0400 Body Temperature 97.2 [degF] Ele Astudillo [facility] Work Phone: 10-12-2016 09:18-0400 Body weight 103.93 kg Ele Astudillo [facility] Work Phone: 10-12-2016 09:18-0400 BP Diastolic 86 mm[Hg] Ele Astudillo [facility] Work Phone: Comment on above: Patient Position: Sitting; Cuff Location : Left Arm; Cuff Size: Standard 10-12-2016 09:18-0400 BP Systolic 142 mm[Hg] Ele Astudillo [facility] Work Phone: Comment on above: Patient Position: Sitting; Cuff Location : Left Arm; Cuff Size: Standard 10-12-2016 09:18-0400 BSA (Body Surface Area) 2.1 m2 Ele Astudillo [facility] Work Phone: 10-12-2016 09:18-0400 Height 165.1 cm Ele Astudillo [facility] Work Phone: 10-12-2016 09:18-0400 Pulse (Heart Rate) 102 /min Ele Astudillo [facility] Work Phone: Comment on above: Pattern: Regular 10-12-2016 09:18-0400 Pulse Oximetry 95 % Ele Astudillo [facility] Work Phone: Comment on above: Room air 10-12-2016 09:18-0400 Respiratory Rate 16 /min Ele Astudillo [facility] Work Phone: Comment on above: Pattern: Unlabored 10-12-2016 09:18-0400 Weight 103.93 kg Ele Astudillo [facility] Work Phone: 10-05-2016 13:34-0400 BMI (Body Mass Index) 37.98 kg/m2 Ele Astudillo [facility] Medicine Work Phone: 10-05-2016 13:34-0400 Body Temperature 97.5 [degF] Ele Astudillo [facility] Work Phone: 10-05-2016 13:34-0400 Body weight 103.53 kg Ele Astudillo [facility] Work Phone: 10-05-2016 13:34-0400 BP Diastolic 86 mm[Hg] Ele Astudillo [facility] Work Phone: Comment on above: Patient Position: Sitting; Cuff Location : Left Arm; Cuff Size: Standard 10-05-2016 13:34-0400 BP Systolic 138 mm[Hg] Ele Astudillo [facility] Work Phone: Comment on above: Patient Position: Sitting; Cuff Location : Left Arm; Cuff Size: Standard 10-05-2016 13:34-0400 BSA (Body Surface Area) 2.09 m2 Ele Astudillo [facility] Work Phone: 10-05-2016 13:34-0400 Height 165.1 cm Ele Astudillo [facility] Work Phone: 10-05-2016 13:34-0400 Pulse (Heart Rate) 92 /min Ele Astudillo [facility] Work Phone: Comment on above: Pattern: Regular 10-05-2016 13:34-0400 Pulse Oximetry 93 % Ele Astudillo [facility] Work Phone: Comment on above: Room air 10-05-2016 13:34-0400 Respiratory Rate 17 /min Ele Astudillo [facility] Work Phone: Comment on above: Pattern: Unlabored 10-05-2016 13:34-0400 Weight 103.53 kg Ele Astudillo [facility] Work Phone: 09-28-2016 09:23-0400 BMI (Body Mass Index) 38.15 kg/m2 Ele Astudillo [facility] Work Phone: 09-28-2016 09:23-0400 Body Temperature 97.7 [degF] Ele Astudillo [facility] Work Phone: 09-28-2016 09:23-0400 Body weight 103.99 kg Ele Astudillo [facility] Work Phone: 09-28-2016 09:23-0400 BP Diastolic 90 mm[Hg] Ele Astudillo [facility] Work Phone: Comment on above: Patient Position: Sitting; Cuff Location : Left Arm; Cuff Size: Standard 09-28-2016 09:23-0400 BP Systolic 162 mm[Hg] Ele Astudillo [facility] Work Phone: Comment on above: Patient Position: Sitting; Cuff Location : Left Arm; Cuff Size: Standard 09-28-2016 09:23-0400 BSA (Body Surface Area) 2.1 m2 Ele Astudillo [facility] Work Phone: 09-28-2016 09:23-0400 Height 165.1 cm Ele Astudillo [facility] Work Phone: 09-28-2016 09:23-0400 Pulse (Heart Rate) 103 /min Ele Astudillo [facility] Work Phone: Comment on above: Pattern: Regular 09-28-2016 09:23-0400 Pulse Oximetry 93 % Ele Astudillo [facility] Work Phone: Comment on above: Room air 09-28-2016 09:23-0400 Respiratory Rate 16 /min Ele Astudillo [facility] Work Phone: Comment on above: Pattern: Unlabored 09-28-2016 09:23-0400 Weight 103.99 kg Ele Astudillo [facility] Work Phone: 09-09-2016 08:35-0400 BMI (Body Mass Index) 38.1 kg/m2 Eileen Hunter [facility] [place] Work Phone: 09-09-2016 08:35-0400 Body Temperature 98 [degF] Eileen York [facility] [place] Work Phone: 09-09-2016 08:35-0400 BP Diastolic 96 mm[Hg] Eileenron Harrison [facility] [place] Work Phone: 09-09-2016 08:35-0400 BP Systolic 157 mm[Hg] Eileen York [facility] [place] Work Phone: 09-09-2016 08:35-0400 Height [facility].1 [facility] [place] Work Phone: 09-09-2016 08:35-0400 Pulse (Heart Rate) 102 /min Eileen Hunter [facility] [place] Work Phone: 09-09-2016 08:35-0400 Respiratory Rate 18 /min Eileen Hunter [facility] [place] Work Phone: 09-09-2016 08:35-0400 Weight 103.87 kg Eileenron Harrison [facility] [place] Work Phone: 08-12-2016 09:32-0400 BMI (Body Mass Index) 37.11 kg/m2 Marla Covarrubias [employer] [place] Work Phone: 08-12-2016 09:32-0400 Body Temperature 98.6 [degF] Marla Covarrubias [employer] [place] Work Phone: 08-12-2016 09:32-0400 BP Diastolic 102 mm[Hg] Marla Covarrubias [facility] [place] Work Phone: 08-12-2016 09:32-0400 BP Diastolic 91 mm[Hg] Marla Covarrubias [facility] Phone: 08-12-2016 09:32-0400 BP Systolic 166 mm[Hg] Marla Lailaho [facility] Work Phone: 08-12-2016 09:32-0400 BP Systolic 164 mm[Hg] Marla Ulloaho [facility] Phone: 08-12-2016 09:32-0400 Height 165.1 cm Marla Ulloaho [facility] Phone: 08-12-2016 09:32-0400 Pulse (Heart Rate) 103 /min Marla Lailaho [facility] Phone: 08-12-2016 09:32-0400 Pulse Oximetry 98 % Marla Ulloaho [facility] Phone: 08-12-2016 09:32-0400 Respiratory Rate 20 /min Marla Ulloaho [facility] Phone: 08-12-2016 09:32-0400 Weight 101.15 [facility] Phone: 07-30-2016 08:12-0400 BMI (Body Mass Index) 38.27 kg/m2 Dyan Beltrán [facility] Work Phone: 07-30-2016 08:12-0400 Body Temperature 97.7 [degF] Dyan Beltrán [facility] Phone: 07-30-2016 08:12-0400 BP Diastolic 90 mm[Hg] Dyan Beltrán [facility] Work Phone: 07-30-2016 08:12-0400 BP Systolic 148 mm[Hg] Dyan Beltrán [facility] Phone: 07-30-2016 08:12-0400 Height 165.1 cm Dyan Beltrán [facility] [place] Work Phone: 07-30-2016 08:12-0400 Pulse (Heart Rate) 109 /min Dyan Beltrán [facility] [place] Work Phone: 07-30-2016 08:12-0400 Pulse Oximetry 97 % Dyan Jerel [facility] [place] Work Phone: 07-30-2016 08:12-0400 Respiratory Rate 18 /min Dyan Jerel [facility] [place] Work Phone: 07-30-2016 08:12-0400 Weight 104.33 kg Dyan Jerel [facility] [place] Work Phone: 06-29-2016 13:53-0400 BMI (Body Mass Index) 37.44 kg/m2 Eileenron Harrison [facility] [place] Work Phone: 06-29-2016 13:53-0400 Body Temperature 97.1 [degF] Eileen Harrison [facility] [place] Work Phone: 06-29-2016 13:53-0400 BP Diastolic 90 mm[Hg] Eileenron Harrison [facility] [place] Work Phone: 06-29-2016 13:53-0400 BP Systolic 153 mm[Hg] Eileenron Harrison [facility] [place] Work Phone: 06-29-2016 13:53-0400 Height 165.1 cm Eileenron Harrison [facility] [place] Work Phone: 06-29-2016 13:53-0400 Pulse (Heart Rate) 105 /min Eileen Harrison [facility] [place] Work Phone: 06-29-2016 13:53-0400 Pulse Oximetry 97 % Eileen Harrison [facility] [place] Work Phone: 06-29-2016 13:53-0400 Respiratory Rate 18 /min Eileen Harrison [facility] [place] Work Phone: 06-29-2016 13:53-0400 Weight 102.06 kg Eileen Hunter [facility] [place] Work Phone: 06-10-2016 09:23-0400 BMI (Body Mass Index) 37.44 kg/m2 Ele [facility] Work Phone: 06-10-2016 09:23-0400 Body weight 102.06 kg Ele [facility] Work Phone: 06-10-2016 09:23-0400 BP Diastolic 78 mm[Hg] Ele [facility] Work Phone: Comment on above: Patient Position: Sitting; Cuff Location : Left Arm; Cuff Size: Large 06-10-2016 09:23-0400 BP Systolic 162 mm[Hg] Ele [facility] Work Phone: Comment on above: Patient Position: Sitting; Cuff Location : Left Arm; Cuff Size: Large 06-10-2016 09:23-0400 BSA (Body Surface Area) 2.08 m2 Ele [facility] Work Phone: 06-10-2016 09:23-0400 Height 165.1 cm Ele [facility] Work Phone: 06-10-2016 09:23-0400 Pulse (Heart Rate) 111 /min Ele [facility] Work Phone: Comment on above: Pattern: Regular 06-10-2016 09:23-0400 Pulse Oximetry 92 % Ele [facility] Work Phone: Comment on above: Room air 06-10-2016 09:23-0400 Respiratory Rate 20 /min Ele [facility] Work Phone: Comment on above: Pattern: Unlabored 06-10-2016 09:23-0400 Weight 102.06 kg Ele [facility] Work Phone: 06-08-2016 08:14-0400 BMI (Body Mass Index) 37.44 kg/m2 Ele Astudillo [facility] Work Phone: 06-08-2016 08:14-0400 Body weight 102.06 kg Ele Astudillo [facility] Work Phone: 06-08-2016 08:14-0400 BP Diastolic 68 mm[Hg] Ele Astudillo [facility] Work Phone: Comment on above: Patient Position: Sitting; Cuff Location : Left Arm; Cuff Size: Large 06-08-2016 08:14-0400 BP Systolic 158 mm[Hg] Ele Astudillo [facility] Work Phone: Comment on above: Patient Position: Sitting; Cuff Location : Left Arm; Cuff Size: Large 06-08-2016 08:140400 BSA (Body Surface Area) 2.08 m2 Ele Astudillo [facility] Work Phone: 06-08-2016 08:14-0400 Height 165.1 cm Ele Astudillo [facility] Work Phone: 06-08-2016 08:14-0400 Pulse (Heart Rate) 115 /min Ele Astudillo [facility] Work Phone: Comment on above: Pattern: Regular 06-08-2016 08:14-0400 Pulse Oximetry 95 % Ele Astudillo [facility] Work Phone: Comment on above: Room air 06-08-2016 08:14-0400 Respiratory Rate 18 /min Ele Astudillo [facility] Work Phone: Comment on above: Pattern: Unlabored 06-08-2016 08:14-0400 Weight 102.06 kg Ele Astudillo [facility] Work Phone: 06-05-2016 09:20-0400 BMI (Body Mass Index) 37.44 kg/m2 Ele Sanders [facility] Work Phone: 06-05-2016 09:20-0400 Body weight 102.06 kg Ele Astudillo [facility] Work Phone: 06-05-2016 09:20-0400 BP Diastolic 90 mm[Hg] Ele Astudillo [facility] Work Phone: Comment on above: Patient Position: Sitting; Cuff Location : Left Arm; Cuff Size: Large 06-05-2016 09:20-0400 BP Systolic 152 mm[Hg] Ele Astudillo [facility] Work Phone: Comment on above: Patient Position: Sitting; Cuff Location : Left Arm; Cuff Size: Large 06-05-2016 09:20-0400 BSA (Body Surface Area) 2.08 m2 Ele Astudillo [facility] Work Phone: 06-05-2016 09:20-0400 Height 165.1 cm Ele Astudillo [facility] Work Phone: 06-05-2016 09:20-0400 Pulse (Heart Rate) 106 /min Ele Astudillo [facility] Work Phone: Comment on above: Pattern: Regular 06-05-2016 09:20-0400 Pulse Oximetry 94 % Ele Astudillo [facility] Work Phone: Comment on above: Room air 06-05-2016 09:20-0400 Respiratory Rate 18 /min Ele Astudillo [facility] Work Phone: Comment on above: Pattern: Unlabored 06-05-2016 09:20-0400 Weight 102.06 kg Ele Astudillo [facility] Work Phone: 06-04-2016 11:06-0400 BMI (Body Mass Index) 37.44 kg/m2 Ele Astudillo [facility] Work Phone: Comment on above: BP recheck 140/98 06-04-2016 11:06-0400 Body weight 102.06 kg Ele Astudillo [facility] Work Phone: Comment on above: BP recheck 140/98 06-04-2016 11:06-0400 BP Diastolic 90 mm[Hg] Ele Astudillo [facility] Work Phone: Comment on above: Patient Position: Sitting; Cuff Location : Left Arm; Cuff Size: Large BP recheck 140/98 06-04-2016 11:06-0400 BP Systolic 190 mm[Hg] Ele Astudillo [facility] Work Phone: Comment on above: Patient Position: Sitting; Cuff Location : Left Arm; Cuff Size: Large BP recheck 140/98 06-04-2016 11:06-0400 BSA (Body Surface Area) 2.08 m2 Ele Astudillo [facility] Work Phone: Comment on above: BP recheck 140/98 06-04-2016 11:06-0400 Height 165.1 cm Ele Astudillo [facility] Work Phone: Comment on above: BP recheck 140/98 06-04-2016 11:06-0400 Pulse (Heart Rate) 110 /min Ele Astudillo [facility] Work Phone: Comment on above: Pattern: Regular BP recheck 140/98 06-04-2016 11:06-0400 Pulse Oximetry 91 % Ele Astudillo [facility] Work Phone: Comment on above: Room air BP recheck 140/98 06-04-2016 11:06-0400 Respiratory Rate 18 /min Ele Astudillo [facility] Work Phone: Comment on above: Pattern: Unlabored BP recheck 140/98 06-04-2016 11:06-0400 Weight 102.06 kg Ele Astudillo [facility] Work Phone: Comment on above: BP recheck 140/98 06-01-2016 10:41-0400 BMI (Body Mass Index) 37.44 kg/m2 Ele Astudillo [facility] Work Phone: 06-01-2016 10:41-0400 Body weight 102.06 kg Ele Astudillo [facility] Work Phone: 06-01-2016 10:41-0400 BP Diastolic 80 mm[Hg] Ele Astudillo [facility] Work Phone: Comment on above: Patient Position: Sitting; Cuff Location : Left Arm; Cuff Size: Large 06-01-2016 10:41-0400 BP Systolic 158 mm[Hg] Ele Astudillo [facility] Work Phone: Comment on above: Patient Position: Sitting; Cuff Location : Left Arm; Cuff Size: Large 06-01-2016 10:41-0400 BSA (Body Surface Area) 2.08 m2 Ele Astudillo [facility] Work Phone: 06-01-2016 10:41-0400 Height 165.1 cm Ele Astudillo [facility] Work Phone: 06-01-2016 10:41-0400 Pulse (Heart Rate) 121 /min Ele Astudillo [facility] Work Phone: Comment on above: Pattern: Regular 06-01-2016 10:41-0400 Pulse Oximetry 91 % Ele Astudillo [facility] Work Phone: Comment on above: Room air 06-01-2016 10:41-0400 Respiratory Rate 18 /min Ele Astudillo [facility] Work Phone: Comment on above: Pattern: Unlabored 06-01-2016 10:41-0400 Weight 102.06 kg Ele Astudillo [facility] Work Phone: 06-24-2015 08:24-0400 BMI (Body Mass Index) 36.44 kg/m2 Ele Astudillo [facility] Work Phone: 06-24-2015 08:24-0400 Body Temperature 97.1 [degF] Ele Astudillo [facility] Work Phone: Comment on above: Method: Tympanic 06-24-2015 08:24-0400 Body weight 99.34 kg Ele Astudillo [facility] Work Phone: 06-24-2015 08:24-0400 BP Diastolic 76 mm[Hg] Ele Astudillo [facility] Work Phone: Comment on above: Patient Position: Sitting; Cuff Location : Left Arm; Cuff Size: Standard 06-24-2015 08:24-0400 BP Systolic 150 mm[Hg] Ele Astudillo [facility] Work Phone: Comment on above: Patient Position: Sitting; Cuff Location : Left Arm; Cuff Size: Standard 06-24-2015 08:24-0400 BSA (Body Surface Area) 2.06 m2 Ele Astudillo [facility] Work Phone: 06-24-2015 08:24-0400 Height 165.1 cm Ele Astudillo [facility] Work Phone: 06-24-2015 08:24-0400 Pulse (Heart Rate) 115 /min Ele Astudillo [facility] Work Phone: Comment on above: Pattern: Regular 06-24-2015 08:24-0400 Pulse Oximetry 94 % Ele Astudillo [facility] Work Phone: Comment on above: Room air 06-24-2015 08:24-0400 Respiratory Rate 15 /min Ele Astudillo [facility] Work Phone: Comment on above: Pattern: Unlabored 06-24-2015 08:24-0400 Weight 99.34 kg Ele Astudillo [facility] Work Phone: 06-12-2015 10:05-0400 BMI (Body Mass Index) 36.11 kg/m2 Ele Astudillo [facility] Work Phone: 06-12-2015 10:05-0400 Body weight 98.43 kg Ele Astudillo [facility] Work Phone: 06-12-2015 10:05-0400 BP Diastolic 82 mm[Hg] Ele Astudillo [facility] Work Phone: Comment on above: Patient Position: Sitting; Cuff Location : Left Arm; Cuff Size: Large 06-12-2015 10:05-0400 BP Systolic 158 mm[Hg] Ele Astudillo [facility] Internal Medicine Work Phone: Comment on above: Patient Position: Sitting; Cuff Location : Left Arm; Cuff Size: Large 06-12-2015 10:05-0400 BSA (Body Surface Area) 2.05 m2 Ele Astudillo [facility] Internal Medicine Work Phone: 06-12-2015 10:05-0400 Height 165.1 cm Ele Astudillo [facility] Internal Medicine Work Phone: 06-12-2015 10:05-0400 Pulse (Heart Rate) 107 /min Ele Astudillo [facility] Internal Medicine Work Phone: Comment on above: Pattern: Regular 06-12-2015 10:05-0400 Pulse Oximetry 93 % Ele Astudillo [facility] Internal Medicine Work Phone: Comment on above: Room air 06-12-2015 10:05-0400 Respiratory Rate 18 /min Ele Astudillo [facility] Internal Medicine Work Phone: Comment on above: Pattern: Unlabored 06-12-2015 10:05-0400 Weight 98.43 kg Ele Astudillo [facility] Internal Medicine Work Phone: 06-05-2015 10:18-0400 BMI (Body Mass Index) 36.17 kg/m2 Ele Astudillo [facility] Internal Medicine Work Phone: 06-05-2015 10:18-0400 Body weight 98.6 kg Ele Astudillo [facility] Internal Medicine Work Phone: 06-05-2015 10:18-0400 BP Diastolic 82 mm[Hg] Ele Astudillo [facility] Internal Medicine Work Phone: Comment on above: Patient Position: Sitting; Cuff Location : Left Arm; Cuff Size: Large 06-05-2015 10:18-0400 BP Systolic 164 mm[Hg] Ele Astudillo [facility] Internal Medicine Work Phone: Comment on above: Patient Position: Sitting; Cuff Location : Left Arm; Cuff Size: Large 06-05-2015 10:18-0400 BSA (Body Surface Area) 2.05 m2 Ele Astudillo [facility] Internal Medicine Work Phone: 06-05-2015 10:18-0400 Height 165.1 cm Ele Astudillo [facility] Internal Medicine Work Phone: 06-05-2015 10:18-0400 Pulse (Heart Rate) 104 /min Eel Astudillo [facility] Internal Medicine Work Phone: Comment on above: Pattern: Regular 06-05-2015 10:18-0400 Pulse Oximetry 89 % Ele Astudillo [facility] Internal Medicine Work Phone: Comment on above: Room air 06-05-2015 10:18-0400 Respiratory Rate 20 /min Ele Astudillo [facility] Internal Medicine Work Phone: Comment on above: Pattern: Wheezing 06-05-2015 10:18-0400 Weight 98.6 kg Ele Astudillo [facility] Internal Medicine Work Phone: 02-06-2015 09:55-0500 BMI (Body Mass Index) 36.11 kg/m2 Ele Astudillo [facility] Internal Medicine Work Phone: 02-06-2015 09:55-0500 Body weight 98.43 kg Ele Astudillo [facility] Internal Medicine Work Phone: 02-06-2015 09:55-0500 BP Diastolic 68 mm[Hg] Ele Astudillo [facility] Internal Medicine Work Phone: Comment on above: Patient Position: Sitting; Cuff Location : Left Arm; Cuff Size: Large 02-06-2015 09:55-0500 BP Systolic 142 mm[Hg] Ele Astudillo [facility] Internal Medicine Work Phone: Comment on above: Patient Position: Sitting; Cuff Location : Left Arm; Cuff Size: Large 02-06-2015 09:55-0500 BSA (Body Surface Area) 2.05 m2 Ele Astudillo [facility] Internal Medicine Work Phone: 02-06-2015 09:55-0500 Height 165.1 cm Ele Astudillo [facility] Internal Medicine Work Phone: 02-06-2015 09:55-0500 Pulse (Heart Rate) 119 /min Ele Astudillo [facility] Internal Medicine Work Phone: Comment on above: Pattern: Regular 02-06-2015 09:55-0500 Pulse Oximetry 96 % Ele Astudillo [facility] Internal Medicine Work Phone: Comment on above: Room air 02-06-2015 09:55-0500 Respiratory Rate 18 /min [facility] Work [facility]: Comment on above: Pattern: Unlabored 02-06-2015 09:55-0500 Weight 98.43 kg Ele Astudillo [facility] Internal Medicine Work Phone: 12-12-2014 09:27-0400 BMI (Body Mass Index) 36.17 kg/m2 Ele Astudillo [facility] Internal Medicine Work Phone: 12-12-2014 09:27-0400 Body Temperature 97.6 [degF] Ele Astudillo [facility] Internal Medicine Work Phone: 12-12-2014 09:27-0400 Body weight 98.6 kg Ele Astudillo [facility] Internal Medicine Work Phone: 12-12-2014 09:27-0400 BP Diastolic 90 mm[Hg] Ele Astudillo [facility] Internal Medicine Work Phone: Comment on above: Patient Position: Sitting; Cuff Location : Left Arm; Cuff Size: Standard 12-12-2014 09:27-0400 BP Systolic 142 mm[Hg] Ele Astudillo [facility] Internal Medicine Work Phone: Comment on above: Patient Position: Sitting; Cuff Location : Left Arm; Cuff Size: Standard 12-12-2014 09:27-0400 BSA (Body Surface Area) 2.05 m2 Ele Astudillo [facility] Internal Medicine Work Phone: 12-12-2014 09:27-0400 Height 165.1 cm Ele Astudillo [facility] Internal Medicine Work Phone: 12-12-2014 09:27-0400 Pulse (Heart Rate) 102 /min Ele Astudillo [facility] Internal Medicine Work Phone: Comment on above: Pattern: Regular 12-12-2014 09:27-0400 Respiratory Rate 16 /min Ele Astudillo [facility] Internal Medicine Work Phone: Comment on above: Pattern: Unlabored 12-12-2014 09:27-0400 Weight 98.6 kg Ele Astudillo [facility] Internal Medicine Work Phone: 09-04-2014 09:48-0400 BMI (Body Mass Index) 33.96 kg/m2 Ele [facility] Internal Medicine Work Phone: 09-04-2014 09:48-0400 Body Temperature 97.8 [degF] Ele Astudillo [facility] Internal Medicine Work Phone: Comment on above: Method: Oral 09-04-2014 09:48-0400 Body weight 92.56 kg Ele Astudillo [facility] Internal Medicine Work Phone: 09-04-2014 09:48-0400 BP Diastolic 102 mm[Hg] Ele Astudillo [facility] Internal Medicine Work Phone: Comment on above: Patient Position: Sitting; Cuff Location : Left Arm; Cuff Size: Standard 09-04-2014 09:48-0400 BP Systolic 166 mm[Hg] Ele Astudillo [facility] Internal Medicine Work Phone: Comment on above: Patient Position: Sitting; Cuff Location : Left Arm; Cuff Size: Standard 09-04-2014 09:48-0400 BSA (Body Surface Area) 2 m2 Ele Astudillo [facility] Internal Medicine Work Phone: 09-04-2014 09:48-0400 Height 165.1 cm Ele Astudillo [facility] Internal Medicine Work Phone: 09-04-2014 09:48-0400 Pulse (Heart Rate) 100 /min Ele Astudillo [facility] Internal Medicine Work Phone: Comment on above: Pattern: Regular 09-04-2014 09:48-0400 Pulse Oximetry 96 % Ele Astudillo [facility] Internal Medicine Work Phone: Comment on above: Room air 09-04-2014 09:48-0400 Respiratory Rate 18 /min Ele Astudillo [facility] Internal Medicine Work Phone: 09-04-2014 09:48-0400 Weight 92.56 kg Ele Astudillo [facility] Internal Medicine Work Phone: 06-25-2014 10:31-0400 BMI (Body Mass Index) 33.96 kg/m2 Ele [facility] Internal Medicine Work Phone: 06-25-2014 10:31-0400 Body Temperature 97.7 [degF] Ele Astudillo [facility] Internal Medicine Work Phone: Comment on above: Method: Oral 06-25-2014 10:31-0400 Body weight 92.56 kg Ele Astudillo [facility] Internal Medicine Work Phone: 06-25-2014 10:31-0400 BP Diastolic 88 mm[Hg] Ele Astudillo [facility] Internal Medicine Work Phone: Comment on above: Patient Position: Sitting; Cuff Location : Left Arm; Cuff Size: Standard 06-25-2014 10:31-0400 BP Systolic 164 mm[Hg] Ele Astudillo [facility] Internal Medicine Work Phone: Comment on above: Patient Position: Sitting; Cuff Location : Left Arm; Cuff Size: Standard 06-25-2014 10:31-0400 BSA (Body Surface Area) 2 m2 Ele Astudillo [facility] Internal Medicine Work Phone: 06-25-2014 10:31-0400 Height 165.1 cm Ele Astudillo [facility] Internal Medicine Work Phone: 06-25-2014 10:31-0400 Pulse (Heart Rate) 112 /min Ele Astudillo [facility] Internal Medicine Work Phone: Comment on above: Pattern: Regular 06-25-2014 10:31-0400 Pulse Oximetry 96 % Ele Astudillo [facility] Internal Medicine Work Phone: Comment on above: Room air 06-25-2014 10:31-0400 Respiratory Rate 18 /min Ele Astudillo [facility] Internal Medicine Work Phone: Comment on above: Pattern: Unlabored 06-25-2014 10:31-0400 Weight 92.56 kg Ele Astudillo [facility] Internal Medicine Work Phone: 12-14-2013 07:47-0400 BMI (Body Mass Index) 33.96 kg/m2 Ele Astudillo [facility] Internal Medicine Work Phone: 12-14-2013 07:47-0400 Body weight 92.56 kg Ele Astudillo [facility] Internal Medicine Work Phone: 12-14-2013 07:47-0400 BP Diastolic 80 mm[Hg] Ele Astudillo [facility] Internal Medicine Work Phone: Comment on above: Patient Position: Sitting; Cuff Location : Left Arm; Cuff Size: Large 12-14-2013 07:47-0400 BP Systolic 142 mm[Hg] Ele Astudillo [facility] Internal Medicine Work Phone: Comment on above: Patient Position: Sitting; Cuff Location : Left Arm; Cuff Size: Large 12-14-2013 07:47-0400 BSA (Body Surface Area) 2 m2 Ele Astudillo [facility] Internal Medicine Work Phone: 12-14-2013 07:47-0400 Height 165.1 cm Ele Astudillo [facility] Internal Medicine Work Phone: 12-14-2013 07:47-0400 Pulse (Heart Rate) 110 /min Ele Astudillo [facility] Internal Medicine Work Phone: Comment on above: Pattern: Regular 12-14-2013 07:47-0400 Pulse Oximetry 97 % Ele Astudillo [facility] Internal Medicine Work Phone: Comment on above: Room air 12-14-2013 07:47-0400 Respiratory Rate 20 /min Ele Astudillo [facility] Internal Medicine Work Phone: Comment on above: Pattern: Unlabored 12-14-2013 07:47-0400 Weight 92.56 kg Ele Astudillo [facility] Internal Medicine Work Phone: 11-16-2013 08:57-0400 BMI (Body Mass Index) 35.13 kg/m2 Ele Astudillo [facility] Internal Medicine Work Phone: 11-16-2013 08:57-0400 Body weight 95.77 kg Ele Astudillo [facility] Internal Medicine Work Phone: 11-16-2013 08:57-0400 BP Diastolic 78 mm[Hg] Ele Astudillo [facility] Internal Medicine Work Phone: Comment on above: Patient Position: Sitting; Cuff Location : Left Arm; Cuff Size: Large 11-16-2013 08:57-0400 BP Systolic 140 mm[Hg] Eel Astudillo [facility] Internal Medicine Work Phone: Comment on above: Patient Position: Sitting; Cuff Location : Left Arm; Cuff Size: Large 11-16-2013 08:57-0400 BSA (Body Surface Area) 2.02 m2 Ele Astudillo [facility] Internal Medicine Work Phone: 11-16-2013 08:57-0400 Height 165.1 cm Ele Astudillo [facility] Internal Medicine Work Phone: 11-16-2013 08:57-0400 Pulse (Heart Rate) 110 /min Ele Astudillo [facility] Internal Medicine Work Phone: Comment on above: Pattern: Regular 11-16-2013 08:57-0400 Pulse Oximetry 97 % Ele Astudillo [facility] Internal Medicine Work Phone: Comment on above: Room air 11-16-2013 08:57-0400 Respiratory Rate 18 /min Ele Astudillo [facility] Internal Medicine Work Phone: Comment on above: Pattern: Unlabored 11-16-2013 08:57-0400 Weight 95.77 kg Ele Astudillo [facility] Internal Medicine Work Phone: 11-03-2013 07:27-0400 BMI (Body Mass Index) 35.01 kg/m2 Ele Astudillo [facility] Internal Medicine Work Phone: 11-03-2013 07:27-0400 Body weight 95.43 kg Ele Astudillo [facility] Internal Medicine Work Phone: 11-03-2013 07:27-0400 BP Diastolic 80 mm[Hg] Ele Astudillo [facility] Internal Medicine Work Phone: Comment on above: Patient Position: Sitting; Cuff Location : Left Arm; Cuff Size: Large 11-03-2013 07:27-0400 BP Systolic 138 mm[Hg] Ele Astudillo [facility] Internal Medicine Work Phone: Comment on above: Patient Position: Sitting; Cuff Location : Left Arm; Cuff Size: Large 11-03-2013 07:27-0400 BSA (Body Surface Area) 2.02 m2 Ele Astudillo [facility] Internal Medicine Work Phone: 11-03-2013 07:27-0400 Height 165.1 cm Ele Astudillo [facility] Internal Medicine Work Phone: 11-03-2013 07:27-0400 Pulse (Heart Rate) 86 /min Ele Astudillo [facility] Internal Medicine Work Phone: Comment on above: Pattern: Regular 11-03-2013 07:27-0400 Pulse Oximetry 98 % Ele Astudillo [facility] Internal Medicine Work Phone: Comment on above: Room air 11-03-2013 07:27-0400 Respiratory Rate 20 /min Ele Astudillo [facility] Internal Medicine Work Phone: Comment on above: Pattern: Unlabored 11-03-2013 07:27-0400 Weight 95.43 kg Ele Astudillo [facility] Internal Medicine Work Phone: 10-20-2013 08:23-0400 BMI (Body Mass Index) 36.52 kg/m2 Ele Astudillo [facility] Internal Medicine Work Phone: 10-20-2013 08:23-0400 Body weight 99.54 kg Ele Astudillo [facility] Internal Medicine Work Phone: 10-20-2013 08:23-0400 BP Diastolic 80 mm[Hg] Ele Astudillo [facility] Internal Medicine Work Phone: Comment on above: Patient Position: Sitting; Cuff Location : Left Arm; Cuff Size: Standard 10-20-2013 08:23-0400 BP Systolic 130 mm[Hg] Ele Astudillo [facility] Internal Medicine Work Phone: Comment on above: Patient Position: Sitting; Cuff Location : Left Arm; Cuff Size: Standard 10-20-2013 08:23-0400 BSA (Body Surface Area) 2.06 m2 Ele Astudillo [facility] Internal Medicine Work Phone: 10-20-2013 08:23-0400 Height 165.1 cm Ele Astudillo [facility] Internal Medicine Work Phone: 10-20-2013 08:23-0400 Pulse (Heart Rate) 100 /min Ele Astudillo [facility] Internal Medicine Work Phone: Comment on above: Pattern: Regular 10-20-2013 08:23-0400 Pulse Oximetry 96 % Ele Astudillo [facility] Internal Medicine Work Phone: Comment on above: Room air 10-20-2013 08:23-0400 Respiratory Rate 16 /min Ele Astudillo [facility] Internal Medicine Work Phone: Comment on above: Pattern: Unlabored 10-20-2013 08:23-0400 Weight 99.54 kg Ele Astudillo [facility] Internal Medicine Work Phone: 09-20-2013 11:51-0400 BMI (Body Mass Index) 36.18 kg/m2 Ele Astudillo [facility] Internal Medicine Work Phone: 09-20-2013 11:51-0400 Body weight 98.63 kg Ele Astudillo [facility] Internal Medicine Work Phone: 09-20-2013 11:51-0400 BP Diastolic 82 mm[Hg] Ele Astudillo [facility] Internal Medicine Work Phone: Comment on above: Patient Position: Sitting; Cuff Location : Left Arm; Cuff Size: Large 09-20-2013 11:51-0400 BP Systolic 124 mm[Hg] Ele Astudillo [facility] Internal Medicine Work Phone: Comment on above: Patient Position: Sitting; Cuff Location : Left Arm; Cuff Size: Large 09-20-2013 11:51-0400 BSA (Body Surface Area) 2.05 m2 Ele Astudillo [facility] Internal Medicine Work Phone: 09-20-2013 11:51-0400 Height 165.1 cm Ele Astudillo [facility] Internal Medicine Work Phone: 09-20-2013 11:51-0400 Pulse (Heart Rate) 107 /min Ele Astudillo [facility] Internal Medicine Work Phone: Comment on above: Pattern: Regular 09-20-2013 11:51-0400 Pulse Oximetry 96 % Ele Astudillo [facility] Internal Medicine Work Phone: Comment on above: Room air 09-20-2013 11:51-0400 Respiratory Rate 18 /min Ele Astudillo [facility] Internal Medicine Work Phone: Comment on above: Pattern: Unlabored 09-20-2013 11:51-0400 Weight 98.63 kg Ele Astudillo [facility] Internal Medicine Work Phone: 08-30-2013 09:53-0400 BMI (Body Mass Index) 32.63 kg/m2 Ele Astudillo [facility] Internal Medicine Work Phone: 08-30-2013 09:53-0400 Body Temperature 97.5 [degF] Ele Astudillo [facility] Internal Medicine Work Phone: Comment on above: Method: Temporal 08-30-2013 09:53-0400 Body weight 88.93 kg Ele Astudillo [facility] Internal Medicine Work Phone: 08-30-2013 09:53-0400 BP Diastolic 76 mm[Hg] Ele Astudillo [facility] Internal Medicine Work Phone: Comment on above: Patient Position: Sitting; Cuff Location : Left Arm; Cuff Size: Standard 08-30-2013 09:53-0400 BP Systolic 124 mm[Hg] Ele Astudillo [facility] Internal Medicine Work Phone: Comment on above: Patient Position: Sitting; Cuff Location : Left Arm; Cuff Size: Standard 08-30-2013 09:53-0400 BSA (Body Surface Area) 1.96 m2 Ele Astudillo [facility] Internal Medicine Work Phone: 08-30-2013 09:53-0400 Height 165.1 cm Ele Astudillo [facility] Internal Medicine Work Phone: 08-30-2013 09:53-0400 Pulse (Heart Rate) 74 /min Ele Astudillo [facility] Internal Medicine Work Phone: Comment on above: Pattern: Regular 08-30-2013 09:53-0400 Pulse Oximetry 97 % Ele Astudillo [facility] Internal Medicine Work Phone: Comment on above: Room air 08-30-2013 09:53-0400 Respiratory Rate 18 /min Ele Astudillo [facility] Internal Medicine Work Phone: Comment on above: Pattern: Unlabored 08-30-2013 09:53-0400 Weight 88.93 kg Ele Astudillo [facility] Internal Medicine Work Phone: 12-20-2012 09:29-0400 BMI (Body Mass Index) 32.63 kg/m2 Ele Astudillo [facility] Internal Medicine Work Phone: 12-20-2012 09:29-0400 Body Temperature 97.4 [degF] Ele Astudillo [facility] Internal Medicine Work Phone: Comment on above: Method: Temporal 12-20-2012 09:29-0400 Body weight 88.93 kg Ele Astudillo [facility] Internal Medicine Work Phone: 12-20-2012 09:29-0400 BP Diastolic 74 mm[Hg] Ele Astudillo [facility] Internal Medicine Work Phone: Comment on above: Patient Position: Sitting; Cuff Location : Left Arm; Cuff Size: Standard 12-20-2012 09:29-0400 BP Systolic 120 mm[Hg] Ele Astudillo [facility] Internal Medicine Work Phone: Comment on above: Patient Position: Sitting; Cuff Location : Left Arm; Cuff Size: Standard 12-20-2012 09:29-0400 BSA (Body Surface Area) 1.96 m2 Ele Astudillo [facility] Internal Medicine Work Phone: 12-20-2012 09:29-0400 Height 165.1 cm Ele Astudillo [facility] Internal Medicine Work Phone: 12-20-2012 09:29-0400 Pulse (Heart Rate) 72 /min Ele Astudillo [facility] Internal Medicine Work Phone: Comment on above: Pattern: Regular 12-20-2012 09:29-0400 Pulse Oximetry 16 % Ele Astudillo [facility] Internal Medicine Work Phone: Comment on above: Room air 12-20-2012 09:29-0400 Respiratory Rate 98 /min Ele Astudillo [facility] Internal Medicine Work Phone: Comment on above: Pattern: Unlabored 12-20-2012 09:29-0400 Weight 88.93 kg Ele Astudillo [facility] Internal Medicine Work Phone: 11-11-2012 08:42-0400 BMI (Body Mass Index) 32.63 kg/m2 Ele Astudillo [facility] Internal Medicine Work Phone: 11-11-2012 08:42-0400 Body weight 88.93 kg Ele Astudillo [facility] Internal Medicine Work Phone: 11-11-2012 08:42-0400 BP Diastolic 82 mm[Hg] Ele Astudillo [facility] Internal Medicine Work Phone: Comment on above: Patient Position: Sitting; Cuff Location : Left Arm; Cuff Size: Standard 11-11-2012 08:42-0400 BP Systolic 146 mm[Hg] Ele Astudillo [facility] Internal Medicine Work Phone: Comment on above: Patient Position: Sitting; Cuff Location : Left Arm; Cuff Size: Standard 11-11-2012 08:42-0400 BSA (Body Surface Area) 1.96 m2 Ele Astudillo [facility] Internal Medicine Work Phone: 11-11-2012 08:42-0400 Height 165.1 cm Ele Astudillo [facility] Internal Medicine Work Phone: 11-11-2012 08:42-0400 Pulse (Heart Rate) 92 /min Ele Astudillo [facility] Internal Medicine Work Phone: Comment on above: Pattern: Regular 11-11-2012 08:42-0400 Respiratory Rate 16 /min Ele Astudillo [facility] Internal Medicine Work Phone: Comment on above: Pattern: Unlabored 11-11-2012 08:42-0400 Weight 88.93 kg Ele Astudillo [facility] Internal Medicine Work Phone: 10-06-2012 07:14-0400 BMI (Body Mass Index) 33.29 kg/m2 Ele Astudillo [facility] Internal Medicine Work Phone: 10-06-2012 07:14-0400 Body Temperature 97.9 [degF] [facility] Work [facility]: Comment on above: Method: Oral 10-06-2012 07:14-0400 Body weight 90.75 kg Ele Astudillo [facility] Internal Medicine Work Phone: 10-06-2012 07:14-0400 BP Diastolic 78 mm[Hg] Ele Astudillo [facility] Internal Medicine Work Phone: Comment on above: Patient Position: Sitting; Cuff Location : Left Arm; Cuff Size: Large 10-06-2012 07:14-0400 BP Systolic 138 mm[Hg] Ele Astudillo [facility] Internal Medicine Work Phone: Comment on above: Patient Position: Sitting; Cuff Location : Left Arm; Cuff Size: Large 10-06-2012 07:14-0400 BSA (Body Surface Area) 1.98 m2 Ele Astudillo [facility] Internal Medicine Work Phone: 10-06-2012 07:14-0400 Height 165.1 cm Ele Astudillo [facility] Internal Medicine Work Phone: 10-06-2012 07:14-0400 Pulse (Heart Rate) 682 /min Ele Astudillo [facility] Internal Medicine Work Phone: Comment on above: Pattern: Regular 10-06-2012 07:14-0400 Respiratory Rate 20 /min Ele Astudillo [facility] Internal Medicine Work Phone: Comment on above: Pattern: Unlabored 10-06-2012 07:14-0400 Weight 90.75 kg Ele Astudillo [facility] Internal Medicine Work Phone: 09-23-2012 11:15-0400 BMI (Body Mass Index) 33.81 kg/m2 Ele Astudillo [facility] Internal Medicine Work Phone: 09-23-2012 11:15-0400 Body weight 92.17 kg Ele Astudillo [facility] Internal Medicine Work Phone: 09-23-2012 11:15-0400 BP Diastolic 82 mm[Hg] Ele Astudillo [facility] Internal Medicine Work Phone: Comment on above: Patient Position: Sitting; Cuff Location : Left Arm; Cuff Size: Large 09-23-2012 11:15-0400 BP Systolic 128 mm[Hg] Ele Astudillo [facility] Internal Medicine Work Phone: Comment on above: Patient Position: Sitting; Cuff Location : Left Arm; Cuff Size: Large 09-23-2012 11:15-0400 BSA (Body Surface Area) 1.99 m2 Ele Astudillo [facility] Internal Medicine Work Phone: 09-23-2012 11:15-0400 Height 165.1 cm Ele Astudillo [facility] Internal Medicine Work Phone: 09-23-2012 11:15-0400 Pulse (Heart Rate) 68 /min Ele Astudillo [facility] Internal Medicine Work Phone: Comment on above: Pattern: Regular 09-23-2012 11:15-0400 Respiratory Rate 20 /min Ele Astudillo [facility] Internal Medicine Work Phone: Comment on above: Pattern: Unlabored 09-23-2012 11:15-0400 Weight 92.17 kg Ele Astudillo [facility] Internal Medicine Work Phone: 09-07-2012 09:04-0400 BMI (Body Mass Index) 35 kg/m2 Ele Astudillo [facility] Internal Medicine Work Phone: 09-07-2012 09:04-0400 Body Temperature 98.6 [degF] Ele Astudillo [facility] Internal Medicine Work Phone: Comment on above: Method: Oral 09-07-2012 09:04-0400 Body weight 95.4 kg Ele Astudillo [facility] Internal Medicine Work Phone: 09-07-2012 09:04-0400 BP Diastolic 82 mm[Hg] Ele Astudillo [facility] Internal Medicine Work Phone: Comment on above: Patient Position: Sitting; Cuff Location : Left Arm; Cuff Size: Large 09-07-2012 09:04-0400 BP Systolic 128 mm[Hg] Ele Astudillo [facility] Internal Medicine Work Phone: Comment on above: Patient Position: Sitting; Cuff Location : Left Arm; Cuff Size: Large 09-07-2012 09:04-0400 BSA (Body Surface Area) 2.02 m2 Ele Astudillo [facility] Internal Medicine Work Phone: 09-07-2012 09:04-0400 Height 165.1 cm Ele Astudillo [facility] Internal Medicine Work Phone: 09-07-2012 09:04-0400 Pulse (Heart Rate) 88 /min Ele Astudillo [facility] Internal Medicine Work Phone: Comment on above: Pattern: Regular 09-07-2012 09:04-0400 Respiratory Rate 20 /min Ele Astudillo [facility] Internal Medicine Work Phone: Comment on above: Pattern: Unlabored 09-07-2012 09:04-0400 Weight 95.4 kg Ele Astudillo [facility] Internal Medicine Work Phone: 08-24-2012 09:09-0400 BMI (Body Mass Index) 35.14 kg/m2 Ele Astudillo [facility] Internal Medicine Work Phone: 08-24-2012 09:09-0400 Body weight 95.79 kg Ele Astudillo [facility] Internal Medicine Work Phone: 08-24-2012 09:09-0400 BP Diastolic 88 mm[Hg] Ele Astudillo [facility] Internal Medicine Work Phone: Comment on above: Patient Position: Sitting; Cuff Location : Left Arm; Cuff Size: Standard 08-24-2012 09:09-0400 BP Systolic 124 mm[Hg] Ele Astudillo [facility] Internal Medicine Work Phone: Comment on above: Patient Position: Sitting; Cuff Location : Left Arm; Cuff Size: Standard 08-24-2012 09:09-0400 BSA (Body Surface Area) 2.02 m2 Ele Astudillo [facility] Internal Medicine Work Phone: 08-24-2012 09:09-0400 Height 165.1 cm Ele Astudillo [facility] Internal Medicine Work Phone: 08-24-2012 09:09-0400 Pulse (Heart Rate) 94 /min Ele Astudillo [facility] Internal Medicine Work Phone: Comment on above: Pattern: Regular 08-24-2012 09:09-0400 Pulse Oximetry 98 % Ele Astudillo [facility] Internal Medicine Work Phone: Comment on above: Room air 08-24-2012 09:09-0400 Respiratory Rate 16 /min Ele Astudillo [facility] Internal Medicine Work Phone: Comment on above: Pattern: Unlabored 08-24-2012 09:09-0400 Weight 95.79 kg Ele Astudillo [facility] Internal Medicine Work Phone: 08-10-2012 09:25-0400 BMI (Body Mass Index) 36.64 kg/m2 Ele Astudillo [facility] Internal Medicine Work Phone: 08-10-2012 09:25-0400 Body weight 99.88 kg Ele Astudillo [facility] Internal Medicine Work Phone: 08-10-2012 09:25-0400 BP Diastolic 82 mm[Hg] Ele Astudillo [facility] Internal Medicine Work Phone: Comment on above: Patient Position: Sitting; Cuff Location : Left Arm; Cuff Size: Large 08-10-2012 09:25-0400 BP Systolic 138 mm[Hg] Ele Astudillo [facility] Internal Medicine Work Phone: Comment on above: Patient Position: Sitting; Cuff Location : Left Arm; Cuff Size: Large 08-10-2012 09:25-0400 BSA (Body Surface Area) 2.06 m2 Ele Astudillo [facility] Internal Medicine Work Phone: 08-10-2012 09:25-0400 Height 165.1 cm Ele Astudillo [facility] Internal Medicine Work Phone: 08-10-2012 09:25-0400 Pulse (Heart Rate) 76 /min Ele Astudillo [facility] Internal Medicine Work Phone: Comment on above: Pattern: Regular 08-10-2012 09:25-0400 Respiratory Rate 20 /min Ele Astudillo [facility] Internal Medicine Work Phone: Comment on above: Pattern: Unlabored 08-10-2012 09:25-0400 Weight 99.88 kg Ele Astudillo [facility] Internal Medicine Work Phone: 07-15-2012 11:53-0400 BMI (Body Mass Index) 36.68 kg/m2 Ele [facility] Internal Medicine Work Phone: 07-15-2012 11:53-0400 Body Temperature 97.9 [degF] Ele Astudillo [facility] Internal Medicine Work Phone: Comment on above: Method: Oral 07-15-2012 11:53-0400 Body weight 99.99 kg Ele Astudillo [facility] Internal Medicine Work Phone: 07-15-2012 11:53-0400 BP Diastolic 82 mm[Hg] Ele Astudillo [facility] Internal Medicine Work Phone: Comment on above: Patient Position: Sitting; Cuff Location : Left Arm; Cuff Size: Large 07-15-2012 11:53-0400 BP Systolic 118 mm[Hg] Ele Astudillo [facility] Internal Medicine Work Phone: Comment on above: Patient Position: Sitting; Cuff Location : Left Arm; Cuff Size: Large 07-15-2012 11:53-0400 BSA (Body Surface Area) 2.06 m2 Ele Astudillo [facility] Internal Medicine Work Phone: 07-15-2012 11:53-0400 Height 165.1 cm Ele Astudillo [facility] Internal Medicine Work Phone: 07-15-2012 11:53-0400 Pulse (Heart Rate) 100 /min Ele Astudillo [facility] Internal Medicine Work Phone: Comment on above: Pattern: Regular 07-15-2012 11:53-0400 Respiratory Rate 20 /min Ele Astudillo [facility] Internal Medicine Work Phone: Comment on above: Pattern: Unlabored 07-15-2012 11:53-0400 Weight 99.99 kg Ele Astudillo [facility] Internal Medicine Work Phone: 04-08-2012 10:46-0500 BMI (Body Mass Index) 36.53 kg/m2 Ele [facility] Internal Medicine Work Phone: 04-08-2012 10:46-0500 Body Temperature 96.7 [degF] Ele Astudillo [facility] Internal Medicine Work Phone: Comment on above: Method: Temporal 04-08-2012 10:46-0500 Body weight 99.57 kg Ele Astudillo [facility] Internal Medicine Work Phone: 04-08-2012 10:46-0500 BP Diastolic 74 mm[Hg] Ele Astudillo [facility] Internal Medicine Work Phone: Comment on above: Patient Position: Sitting; Cuff Location : Left Arm; Cuff Size: Standard 04-08-2012 10:46-0500 BP Systolic 126 mm[Hg] Ele Astudillo [facility] Internal Medicine Work Phone: Comment on above: Patient Position: Sitting; Cuff Location : Left Arm; Cuff Size: Standard 04-08-2012 10:46-0500 BSA (Body Surface Area) 2.06 m2 Ele Astudillo [facility] Internal Medicine Work Phone: 04-08-2012 10:46-0500 Height 165.1 cm Ele Astudillo [facility] Internal Medicine Work Phone: 04-08-2012 10:46-0500 Pulse (Heart Rate) 92 /min Ele Astudillo [facility] Internal Medicine Work Phone: Comment on above: Pattern: Regular 04-08-2012 10:46-0500 Pulse Oximetry 98 % Ele Astudillo [facility] Internal Medicine Work Phone: Comment on above: Room air 04-08-2012 10:46-0500 Respiratory Rate 16 /min Ele Astudillo [facility] Internal Medicine Work Phone: Comment on above: Pattern: Unlabored 04-08-2012 10:46-0500 Weight 99.57 kg Ele Astudillo [facility] Internal Medicine Work Phone: 03-16-2012 10:17-0500 BMI (Body Mass Index) 36.53 kg/m2 Ele Astudillo [facility] Internal Medicine Work Phone: 03-16-2012 10:17-0500 Body weight 99.57 kg Ele Astudillo [facility] Internal Medicine Work Phone: 03-16-2012 10:17-0500 BP Diastolic 82 mm[Hg] Ele Astudillo [facility] Internal Medicine Work Phone: Comment on above: Patient Position: Sitting; Cuff Location : Left Arm; Cuff Size: Large 03-16-2012 10:17-0500 BP Systolic 148 mm[Hg] Ele Astudillo [facility] Internal Medicine Work Phone: Comment on above: Patient Position: Sitting; Cuff Location : Left Arm; Cuff Size: Large 03-16-2012 10:17-0500 BSA (Body Surface Area) 2.06 m2 Ele Astudillo [facility] Internal Medicine Work Phone: 03-16-2012 10:17-0500 Height 165.1 cm Ele Astudillo [facility] Internal Medicine Work Phone: 03-16-2012 10:17-0500 Pulse (Heart Rate) 88 /min Ele Astudillo [facility] Internal Medicine Work Phone: Comment on above: Pattern: Regular 03-16-2012 10:17-0500 Respiratory Rate 20 /min Ele Astudillo [facility] Internal Medicine Work Phone: Comment on above: Pattern: Unlabored 03-16-2012 10:17-0500 Weight 99.57 kg Ele Astudillo [facility] Internal Medicine Work Phone: 02-17-2012 09:14-0500 BMI (Body Mass Index) 36.61 kg/m2 Ele Astudillo [facility] Internal Medicine Work Phone: 02-17-2012 09:14-0500 Body Temperature 97 [degF] Ele Astudillo [facility] Internal Medicine Work Phone: Comment on above: Method: Oral 02-17-2012 09:14-0500 Body weight 99.79 kg lEe Astudillo [facility] Internal Medicine Work Phone: 02-17-2012 09:14-0500 BP Diastolic 78 mm[Hg] Ele Astudillo [facility] Internal Medicine Work Phone: Comment on above: Patient Position: Sitting; Cuff Location : Left Arm; Cuff Size: Standard 02-17-2012 09:14-0500 BP Systolic 144 mm[Hg] Ele Astudillo [facility] Internal Medicine Work Phone: Comment on above: Patient Position: Sitting; Cuff Location : Left Arm; Cuff Size: Standard 02-17-2012 09:14-0500 BSA (Body Surface Area) 2.06 m2 Ele Astudillo [facility] Internal Medicine Work Phone: 02-17-2012 09:14-0500 Height 165.1 cm Ele Astduillo [facility] Internal Medicine Work Phone: 02-17-2012 09:14-0500 Pulse (Heart Rate) 122 /min Ele Astudillo [facility] Internal Medicine Work Phone: Comment on above: Pattern: Regular 02-17-2012 09:14-0500 Pulse Oximetry 95 % Ele Astudillo [facility] Internal Medicine Work Phone: Comment on above: Room air 02-17-2012 09:14-0500 Respiratory Rate 18 /min Ele Astudillo [facility] Internal Medicine Work Phone: Comment on above: Pattern: Unlabored 02-17-2012 09:14-0500 Weight 99.79 kg Ele Astudillo [facility] Internal Medicine Work Phone: 08-06-2011 11:33-0400 BMI (Body Mass Index) 35.61 kg/m2 Ele Astudillo [facility] Internal Medicine Work Phone: 08-06-2011 11:33-0400 Body Temperature 97.6 [degF] Ele Astudillo [facility] Internal Medicine Work Phone: Comment on above: Method: Oral 08-06-2011 11:33-0400 Body weight 97.07 kg Ele Astudillo [facility] Internal Medicine Work Phone: 08-06-2011 11:33-0400 BP Diastolic 78 mm[Hg] Ele Astudillo [facility] Internal Medicine Work Phone: Comment on above: Patient Position: Sitting; Cuff Location : Left Arm; Cuff Size: Standard 08-06-2011 11:33-0400 BP Systolic 124 mm[Hg] Ele Astudillo [facility] Internal Medicine Work Phone: Comment on above: Patient Position: Sitting; Cuff Location : Left Arm; Cuff Size: Standard 08-06-2011 11:33-0400 BSA (Body Surface Area) 2.04 m2 Ele Astudillo [facility] Internal Medicine Work Phone: 08-06-2011 11:33-0400 Height 165.1 cm Ele Astudillo [facility] Internal Medicine Work Phone: 08-06-2011 11:33-0400 Pulse (Heart Rate) 74 /min Ele Astudillo [facility] Internal Medicine Work Phone: Comment on above: Pattern: Regular 08-06-2011 11:33-0400 Respiratory Rate 18 /min Ele Astudillo [facility] Internal Medicine Work Phone: Comment on above: Pattern: Unlabored 08-06-2011 11:33-0400 Weight 97.07 kg Ele Astudillo [facility] Internal Medicine Work Phone: 02-13-2011 12:58-0500 BMI (Body Mass Index) 35.61 kg/m2 Ele Astudillo [facility] Internal Medicine Work Phone: 02-13-2011 12:58-0500 Body Temperature 98 [degF] Ele Astudillo [facility] Internal Medicine Work Phone: Comment on above: Method: Oral 02-13-2011 12:58-0500 Body weight 97.07 kg Ele Astudillo [facility] Internal Medicine Work Phone: 02-13-2011 12:58-0500 BP Diastolic 80 mm[Hg] Ele Astudillo [facility] Internal Medicine Work Phone: Comment on above: Patient Position: Sitting; Cuff Location : Left Arm; Cuff Size: Standard 02-13-2011 12:58-0500 BP Systolic 128 mm[Hg] Ele Astuidllo [facility] Internal Medicine Work Phone: Comment on above: Patient Position: Sitting; Cuff Location : Left Arm; Cuff Size: Standard 02-13-2011 12:58-0500 BSA (Body Surface Area) 2.04 m2 Ele Astudillo [facility] Internal Medicine Work Phone: 02-13-2011 12:58-0500 Height 165.1 cm Ele Astudillo [facility] Internal Medicine Work Phone: 02-13-2011 12:58-0500 Pulse (Heart Rate) 76 /min Ele Astudillo [facility] Internal Medicine Work Phone: Comment on above: Pattern: Regular 02-13-2011 12:58-0500 Respiratory Rate 18 /min Ele Astudillo [facility] Internal Medicine Work Phone: Comment on above: Pattern: Unlabored 02-13-2011 12:58-0500 Weight 97.07 kg Ele Astudillo [facility] Internal Medicine Work Phone: 10-31-2010 10:09-0400 BMI (Body Mass Index) 35.61 kg/m2 Ele Astudillo [facility] Internal Medicine Work Phone: 10-31-2010 10:09-0400 Body Temperature 97.9 [degF] Ele Astudillo [facility] Internal Medicine Work Phone: Comment on above: Method: Oral 10-31-2010 10:090400 Body weight 97.07 kg Ele Astudillo [facility] Internal Medicine Work Phone: 10-31-2010 10:09-0400 BP Diastolic 78 mm[Hg] Ele Astudillo [facility] Internal Medicine Work Phone: Comment on above: Patient Position: Sitting; Cuff Location : Left Arm; Cuff Size: Standard 10-31-2010 10:09-0400 BP Systolic 122 mm[Hg] Ele Astudillo [facility] Internal Medicine Work Phone: Comment on above: Patient Position: Sitting; Cuff Location : Left Arm; Cuff Size: Standard 10-31-2010 10:09-0400 BSA (Body Surface Area) 2.04 m2 Ele Astudillo [facility] Internal Medicine Work Phone: 10-31-2010 10:09-0400 Height 165.1 cm Ele Astudillo [facility] Internal Medicine Work Phone: 10-31-2010 10:09-0400 Pulse (Heart Rate) 76 /min Ele Astudillo [facility] Internal Medicine Work Phone: Comment on above: Pattern: Regular 10-31-2010 10:09-0400 Respiratory Rate 18 /min Ele Astudillo [facility] Internal Medicine Work Phone: Comment on above: Pattern: Unlabored 10-31-2010 10:09-0400 Weight 97.07 kg Ele Astudillo [facility] Internal Medicine Work Phone: 08-22-2010 11:33-0400 BMI (Body Mass Index) 35.68 kg/m2 Ele Astudillo [facility] Internal Medicine Work Phone: 08-22-2010 11:33-0400 Body Temperature 97.1 [degF] Ele Astudillo [facility] Internal Medicine Work Phone: Comment on above: Method: Oral 08-22-2010 11:33-0400 Body weight 97.25 kg Ele Astudillo [facility] Internal Medicine Work Phone: 08-22-2010 11:33-0400 BP Diastolic 72 mm[Hg] Ele Astudillo [facility] Internal Medicine Work Phone: Comment on above: Patient Position: Sitting; Cuff Location : Left Arm; Cuff Size: Standard 08-22-2010 11:33-0400 BP Systolic 118 mm[Hg] Ele Astudillo [facility] Internal Medicine Work Phone: Comment on above: Patient Position: Sitting; Cuff Location : Left Arm; Cuff Size: Standard 08-22-2010 11:33-0400 BSA (Body Surface Area) 2.04 m2 Ele Astudillo [facility] Internal Medicine Work Phone: 08-22-2010 11:33-0400 Height 165.1 cm Ele Astudillo [facility] Internal Medicine Work Phone: 08-22-2010 11:33-0400 Pulse (Heart Rate) 80 /min Ele Astudillo [facility] Internal Medicine Work Phone: Comment on above: Pattern: Regular 08-22-2010 11:33-0400 Respiratory Rate 18 /min Ele Astudillo [facility] Internal Medicine Work Phone: Comment on above: Pattern: Unlabored 08-22-2010 11:33-0400 Weight 97.25 kg Ele Astudillo [facility] Internal Medicine Work Phone: 06-27-2010 10:53-0400 BMI (Body Mass Index) 34.68 kg/m2 Ele Astudillo [facility] Internal Medicine Work Phone: 06-27-2010 10:53-0400 Body Temperature 97.6 [degF] Ele Astudillo [facility] Internal Medicine Work Phone: Comment on above: Method: Oral 06-27-2010 10:53-0400 Body weight 95.26 kg Ele Astudillo [facility] Internal Medicine Work Phone: 06-27-2010 10:53-0400 BP Diastolic 80 mm[Hg] Ele Astudillo [facility] Internal Medicine Work Phone: Comment on above: Patient Position: Sitting; Cuff Location : Left Arm; Cuff Size: Large 06-27-2010 10:53-0400 BP Systolic 124 mm[Hg] Ele Astudillo [facility] Internal Medicine Work Phone: Comment on above: Patient Position: Sitting; Cuff Location : Left Arm; Cuff Size: Large 06-27-2010 10:53-0400 BSA (Body Surface Area) 2.03 m2 Ele Astudillo [facility] Internal Medicine Work Phone: 06-27-2010 10:53-0400 Height 165.74 cm Ele Astudillo [facility] Internal Medicine Work Phone: 06-27-2010 10:53-0400 Pulse (Heart Rate) 84 /min Ele Astudillo [facility] Internal Medicine Work Phone: Comment on above: Pattern: Regular 06-27-2010 10:53-0400 Respiratory Rate 20 /min Ele Astudillo [facility] Internal Medicine Work Phone: Comment on above: Pattern: Unlabored 06-27-2010 10:53-0400 Weight 95.26 kg Ele Astudillo [facility] Internal Medicine Work Phone: 05-13-2010 10:12-0400 BMI (Body Mass Index) 34.68 kg/m2 Ele [facility] Internal Medicine Work Phone: 05-13-2010 10:12-0400 Body Temperature 98.1 [degF] Ele Astudillo [facility] Internal Medicine Work Phone: 05-13-2010 10:12-0400 Body weight 95.26 kg Ele Astudillo [facility] Internal Medicine Work Phone: 05-13-2010 10:12-0400 BP Diastolic 82 mm[Hg] Ele Astudillo [facility] Internal Medicine Work Phone: Comment on above: Patient Position: Sitting; Cuff Location : Left Arm; Cuff Size: Standard 05-13-2010 10:12-0400 BP Systolic 118 mm[Hg] Ele Astudillo [facility] Internal Medicine Work Phone: Comment on above: Patient Position: Sitting; Cuff Location : Left Arm; Cuff Size: Standard 05-13-2010 10:12-0400 BSA (Body Surface Area) 2.03 m2 Ele Astudillo [facility] Internal Medicine Work Phone: 05-13-2010 10:12-0400 Height 165.74 cm Ele Astudillo [facility] Internal Medicine Work Phone: 05-13-2010 10:12-0400 Pulse (Heart Rate) 108 /min Ele Astudillo [facility] Internal Medicine Work Phone: Comment on above: Pattern: Regular 05-13-2010 10:12-0400 Respiratory Rate 16 /min Ele Astudillo [facility] Internal Medicine Work Phone: Comment on above: Pattern: Unlabored 05-13-2010 10:12-0400 Weight 95.26 kg Ele Astudillo [facility] Internal Medicine Work Phone: 03-13-2010 11:49-0500 BMI (Body Mass Index) 35.61 kg/m2 Ele [facility] Internal Medicine Work Phone: 03-13-2010 11:49-0500 Body Temperature 97.6 [degF] Ele Astudillo [facility] Internal Medicine Work Phone: Comment on above: Method: Oral 03-13-2010 11:49-0500 Body weight 97.07 kg Ele Astudillo [facility] Internal Medicine Work Phone: 03-13-2010 11:49-0500 BP Diastolic 80 mm[Hg] Ele Astudillo [facility] Internal Medicine Work Phone: Comment on above: Patient Position: Sitting; Cuff Location : Left Arm; Cuff Size: Standard 03-13-2010 11:49-0500 BP Systolic 120 mm[Hg] Ele Astudillo [facility] Internal Medicine Work Phone: Comment on above: Patient Position: Sitting; Cuff Location : Left Arm; Cuff Size: Standard 03-13-2010 11:49-0500 BSA (Body Surface Area) 2.04 m2 Ele Astudillo [facility] Internal Medicine Work Phone: 03-13-2010 11:49-0500 Height 165.1 cm Ele Astudillo [facility] Internal Medicine Work Phone: 03-13-2010 11:49-0500 Pulse (Heart Rate) 74 /min Ele Astudillo [facility] Internal Medicine Work Phone: Comment on above: Pattern: Regular 03-13-2010 11:49-0500 Respiratory Rate 18 /min Ele Astudillo [facility] Internal Medicine Work Phone: Comment on above: Pattern: Unlabored 03-13-2010 11:49-0500 Weight 97.07 kg Ele Astudillo [facility] Internal Medicine Work Phone: 02-14-2010 09:42-0500 BMI (Body Mass Index) 35.61 kg/m2 Ele Astudillo [facility] Internal Medicine Work Phone: 02-14-2010 09:42-0500 Body weight 97.07 kg Ele Astudillo [facility] Internal Medicine Work Phone: 02-14-2010 09:42-0500 BP Diastolic 80 mm[Hg] Ele Astudillo [facility] Internal Medicine Work Phone: Comment on above: Patient Position: Sitting; Cuff Location : Left Arm; Cuff Size: Large 02-14-2010 09:42-0500 BP Systolic 122 mm[Hg] [facility] Medicine Work Phone: Comment on above: Patient Position: Sitting; Cuff Location : Left Arm; Cuff Size: Large 02-14-2010 09:42-0500 BSA (Body Surface Area) 2.04 m2 Ele Astudillo [facility] Internal Medicine Work Phone: 02-14-2010 09:42-0500 Height 165.1 cm Ele Astudillo [facility] Internal Medicine Work Phone: 02-14-2010 09:42-0500 Pulse (Heart Rate) 100 /min Ele Astudillo [facility] Internal Medicine Work Phone: Comment on above: Pattern: Regular 02-14-2010 09:42-0500 Respiratory Rate 20 /min Ele Astudillo [facility] Internal Medicine Work Phone: Comment on above: Pattern: Unlabored 02-14-2010 09:42-0500 Weight 97.07 kg Ele Astudillo [facility] Internal Medicine Work Phone: 12-24-2009 08:07-0400 Body weight 98.15 kg Ele Astudillo [facility] Internal Medicine Work Phone: 12-24-2009 08:07-0400 BP Diastolic 84 mm[Hg] Ele Astudillo [facility] Internal Medicine Work Phone: Comment on above: Patient Position: Sitting; Cuff Location : Left Arm; Cuff Size: Standard 12-24-2009 08:07-0400 BP Systolic 124 mm[Hg] Ele Astudillo [facility] Internal Medicine Work Phone: Comment on above: Patient Position: Sitting; Cuff Location : Left Arm; Cuff Size: Standard 12-24-2009 08:07-0400 Pulse (Heart Rate) 72 /min Ele Astudillo [facility] Internal Medicine Work Phone: Comment on above: Pattern: Regular 12-24-2009 08:07-0400 Respiratory Rate 16 /min Ele Astudillo [facility] Internal Medicine Work Phone: Comment on above: Pattern: Unlabored 12-24-2009 08:07-0400 Weight 98.15 kg Ele [facility] Internal Medicine Work Phone: 12-11-2009 10:05-0400 Body Temperature 98.8 [degF] Ele Astudillo [facility] Internal Medicine Work Phone: Comment on above: Method: Oral 12-11-2009 10:05-0400 Body weight 97.52 kg Ele [facility] Internal Medicine Work Phone: 12-11-2009 10:05-0400 BP Diastolic 74 mm[Hg] Ele Astuidllo [facility] Internal Medicine Work Phone: Comment on above: Patient Position: Sitting; Cuff Location : Left Arm; Cuff Size: Large 12-11-2009 10:05-0400 BP Systolic 130 mm[Hg] Ele Astudillo [facility] Internal Medicine Work Phone: Comment on above: Patient Position: Sitting; Cuff Location : Left Arm; Cuff Size: Large 12-11-2009 10:05-0400 Pulse (Heart Rate) 60 /min Ele Astudillo [facility] Internal Medicine Work Phone: Comment on above: Pattern: Regular 12-11-2009 10:05-0400 Respiratory Rate 18 /min Ele Astudillo [facility] Internal Medicine Work Phone: Comment on above: Pattern: Unlabored 12-11-2009 10:05-0400 Weight 97.52 kg Ele Astudillo [facility] Internal Medicine Work Phone: 08-15-2009 09:16-0400 BP Diastolic 78 mm[Hg] Ele Astudillo [facility] Internal Medicine Work Phone: Comment on above: Patient Position: Sitting; Cuff Location : Left Arm; Cuff Size: Standard 08-15-2009 09:16-0400 BP Systolic 118 mm[Hg] Ele Astudillo [facility] Internal Medicine Work Phone: Comment on above: Patient Position: Sitting; Cuff Location : Left Arm; Cuff Size: Standard 08-15-2009 09:16-0400 Pulse (Heart Rate) 78 /min Ele [facility] Internal Medicine Work Phone: Comment on above: Pattern: Regular 08-15-2009 09:16-0400 Respiratory Rate 18 /min Ele Astudillo [facility] Internal Medicine Work Phone: Comment on above: Pattern: Unlabored 07-25-2009 12:30-0400 Body Temperature 98.3 [degF] Ele Astudillo [facility] Internal Medicine Work Phone: 07-25-2009 12:30-0400 BP Diastolic 84 mm[Hg] Ele Astudillo [facility] Internal Medicine Work Phone: Comment on above: Patient Position: Sitting; Cuff Location : Left Arm; Cuff Size: Standard 07-25-2009 12:30-0400 BP Systolic 128 mm[Hg] Ele Astudillo [facility] Internal Medicine Work Phone: Comment on above: Patient Position: Sitting; Cuff Location : Left Arm; Cuff Size: Standard 07-25-2009 12:30-0400 Pulse (Heart Rate) 108 /min Ele Astudillo [facility] Internal Medicine Work Phone: Comment on above: Pattern: Regular 07-25-2009 12:30-0400 Respiratory Rate 20 /min Ele Astudillo [facility] Internal Medicine Work Phone: Comment on above: Pattern: Unlabored 02-15-2009 09:13-0500 BMI (Body Mass Index) 33.45 kg/m2 Ele Astudillo [facility] Internal Medicine Work Phone: 02-15-2009 09:13-0500 Body weight 91.17 kg Ele Astudillo [facility] Internal Medicine Work Phone: 02-15-2009 09:13-0500 BP Diastolic 82 mm[Hg] Ele Astudillo [facility] Internal Medicine Work Phone: Comment on above: Patient Position: Sitting; Cuff Location : Left Arm; Cuff Size: Large 02-15-2009 09:13-0500 BP Systolic 122 mm[Hg] [facility] Work [facility]: Comment on above: Patient Position: Sitting; Cuff Location : Left Arm; Cuff Size: Large 02-15-2009 09:13-0500 BSA (Body Surface Area) 1.98 m2 [facility] [facility] Work Phone: 02-15-2009 09:13-0500 Head Circumference 0 cm [facility] Work Phone: 02-15-2009 09:13-0500 Height 165.1 cm [facility] Work Phone: 02-15-2009 09:13-0500 Pulse (Heart Rate) 88 /min [facility] Work Phone: Comment on above: Pattern: Regular 02-15-2009 09:13-0500 Respiratory Rate 20 /min [facility] Work Phone: Comment on above: Pattern: Unlabored 02-15-2009 09:13-0500 Weight 91.17 kg Ele Astudillo [facility] Internal Medicine Work Phone: 02-11-2009 16:18-0500 Body weight 0 kg Ele Astudillo [facility] Internal Medicine Work Phone: 02-11-2009 16:18-0500 BP Diastolic 82 mm[Hg] [facility] Work Phone: Comment on above: Patient Position: Sitting; Cuff Location : Left Arm; Cuff Size: Standard 02-11-2009 16:18-0500 BP Systolic 124 mm[Hg] [facility] Work Phone: Comment on above: Patient Position: Sitting; Cuff Location : Left Arm; Cuff Size: Standard 02-11-2009 16:18-0500 Head Circumference 0 cm Ele Astudillo [facility] Internal Medicine Work Phone: 02-11-2009 16:18-0500 Height 0 cm Ele Astudillo [facility] Internal Medicine Work Phone: 02-11-2009 16:18-0500 Pulse (Heart Rate) 76 /min [facility] Work Phone: Comment on above: Pattern: Regular 02-11-2009 16:18-0500 Respiratory Rate 16 /min [facility] Work Phone: Comment on above: Pattern: Unlabored 02-11-2009 16:18-0500 Weight 0 kg Ele Astudillo [facility] Internal Medicine Work Phone: 02-04-2009 10:43-0500 BMI (Body Mass Index) 33.45 kg/m2 [facility] Work Phone: 02-04-2009 10:43-0500 Body Temperature 98 [degF] Ele Astudillo [facility] Internal Medicine Work Phone: Comment on above: Method: Oral 02-04-2009 10:43-0500 Body weight 91.17 kg Ele Astudillo [facility] Internal Medicine Work Phone: 02-04-2009 10:43-0500 BP Diastolic 80 mm[Hg] Ele Astudillo [facility] Internal Medicine Work Phone: Comment on above: Patient Position: Sitting; Cuff Location : Left Arm; Cuff Size: Large 02-04-2009 10:43-0500 BP Systolic 122 mm[Hg] Ele Astudillo [facility] Internal Medicine Work Phone: Comment on above: Patient Position: Sitting; Cuff Location : Left Arm; Cuff Size: Large 02-04-2009 10:43-0500 BSA (Body Surface Area) 1.98 m2 Ele Astudillo [facility] Internal Medicine Work Phone: 02-04-2009 10:43-0500 Head Circumference 0 cm Ele Astudillo [facility] Internal Medicine Work Phone: 02-04-2009 10:43-0500 Height 165.1 cm Ele Astudillo [facility] Internal Medicine Work Phone: 02-04-2009 10:43-0500 Pulse (Heart Rate) 80 /min Ele Astudillo [facility] Internal Medicine Work Phone: Comment on above: Pattern: Regular 02-04-2009 10:43-0500 Respiratory Rate 20 /min Ele Astudillo [facility] Internal Medicine Work Phone: Comment on above: Pattern: Unlabored 02-04-2009 10:43-0500 Weight 91.17 kg Ele Astudillo [facility] Internal Medicine Work Phone: 12-10-2008 12:08-0400 BMI (Body Mass Index) 33.45 kg/m2 Ele [facility] Work Phone: 12-10-2008 12:08-0400 Body weight 91.17 kg [facility] Work Phone: 12-10-2008 12:08-0400 BP Diastolic 70 mm[Hg] Ele Astudillo [facility] Internal Medicine Work Phone: Comment on above: Patient Position: Sitting; Cuff Location : Left Arm; Cuff Size: Large 12-10-2008 12:08-0400 BP Systolic 122 mm[Hg] Ele Astudillo [facility] Internal Medicine Work Phone: Comment on above: Patient Position: Sitting; Cuff Location : Left Arm; Cuff Size: Large 12-10-2008 12:08-0400 BSA (Body Surface Area) 1.98 m2 Ele [facility] Internal Medicine Work Phone: 12-10-2008 12:08-0400 Head Circumference 0 cm Ele Astudillo [facility] Internal Medicine Work Phone: 12-10-2008 12:08-0400 Height 165.1 cm Ele Astudillo [facility] Internal Medicine Work Phone: 12-10-2008 12:08-0400 Pulse (Heart Rate) 72 /min Ele Astudillo [facility] Internal Medicine Work Phone: Comment on above: Pattern: Regular 12-10-2008 12:08-0400 Pulse Oximetry 93 % Ele Astudillo [facility] Internal Medicine Work Phone: Comment on above: Room air 12-10-2008 12:08-0400 Respiratory Rate 20 /min Ele Astudillo [facility] Internal Medicine Work Phone: Comment on above: Pattern: Unlabored 12-10-2008 12:08-0400 Weight 91.17 kg [facility] Work Phone: 10-25-2008 09:55-0400 BMI (Body Mass Index) 33.45 kg/m2 Ele [facility] Work Phone: 10-25-2008 09:55-0400 Body Temperature 98.8 [degF] Ele [facility] Work Phone: Comment on above: Method: Oral 10-25-2008 09:55-0400 Body weight 91.17 kg Ele [facility] Work Phone: 10-25-2008 09:55-0400 BP Diastolic 70 mm[Hg] Ele Astudillo [facility] Internal Medicine Work Phone: Comment on above: Patient Position: Sitting; Cuff Location : Left Arm; Cuff Size: Large 10-25-2008 09:55-0400 BP Systolic 128 mm[Hg] [facility] Work Phone: Comment on above: Patient Position: Sitting; Cuff Location : Left Arm; Cuff Size: Large 10-25-2008 09:55-0400 BSA (Body Surface Area) 1.98 m2 Ele [facility] Work Phone: 10-25-2008 09:55-0400 Head Circumference 0 cm Ele [facility] Work Phone: 10-25-2008 09:55-0400 Height 165.1 cm Ele [facility] Work Phone: 10-25-2008 09:55-0400 Pulse (Heart Rate) 88 /min Ele [facility] Work Phone: Comment on above: Pattern: Regular 10-25-2008 09:55-0400 Pulse Oximetry 90 % Ele [facility] Work Phone: Comment on above: Room air 10-25-2008 09:55-0400 Respiratory Rate 20 /min Ele [facility] Work Phone: Comment on above: Pattern: Unlabored 10-25-2008 09:55-0400 Weight 91.17 kg Ele Astudillo [facility] Internal Medicine Work Phone: 09-07-2008 09:35-0400 Body weight 91.17 kg Ele Astudillo [facility] Internal Medicine Work Phone: 09-07-2008 09:35-0400 BP Diastolic 80 mm[Hg] Ele Astudillo [facility] Internal Medicine Work Phone: Comment on above: Patient Position: Sitting; Cuff Location : Left Arm; Cuff Size: Standard 09-07-2008 09:35-0400 BP Systolic 120 mm[Hg] Ele Astudillo [facility] Internal Medicine Work Phone: Comment on above: Patient Position: Sitting; Cuff Location : Left Arm; Cuff Size: Standard 09-07-2008 09:35-0400 Head Circumference 0 cm Ele Astudillo [facility] Internal Medicine Work Phone: 09-07-2008 09:35-0400 Height 0 cm Ele Astudillo [facility] Internal Medicine Work Phone: 09-07-2008 09:35-0400 Pulse (Heart Rate) 72 /min Ele Astudillo [facility] Internal Medicine Work Phone: Comment on above: Pattern: Regular 09-07-2008 09:35-0400 Respiratory Rate 16 /min Ele Astudillo [facility] Internal Medicine Work Phone: Comment on above: Pattern: Unlabored 09-07-2008 09:35-0400 Weight 91.17 kg Ele Astudillo [facility] Internal Medicine Work Phone: 08-09-2008 12:50-0400 Body Temperature 99.7 [degF] Ele Astudillo [facility] Internal Medicine Work Phone: Comment on above: Method: Oral pt is chewing gum 08-09-2008 12:50-0400 Body weight 91.17 kg Ele Astudillo [facility] Internal Medicine Work Phone: Comment on above: pt is chewing gum 08-09-2008 12:50-0400 BP Diastolic 78 mm[Hg] Ele Astudillo [facility] Internal Medicine Work Phone: Comment on above: Patient Position: Sitting; Cuff Location : Left Arm; Cuff Size: Large pt is chewing gum 08-09-2008 12:50-0400 BP Systolic 112 mm[Hg] Ele Astudillo [facility] Internal Medicine Work Phone: Comment on above: Patient Position: Sitting; Cuff Location : Left Arm; Cuff Size: Large pt is chewing gum 08-09-2008 12:50-0400 Head Circumference 0 cm Ele [facility] Internal Medicine Work Phone: Comment on above: pt is chewing gum 08-09-2008 12:50-0400 [facility] 0 [facility]: Comment on above: pt is chewing gum 08-09-2008 12:50-0400 Pulse (Heart Rate) 94 /min [facility] Work [facility]: Comment on above: Pattern: Regular pt is chewing gum 08-09-2008 12:50-0400 Respiratory Rate 18 /min [facility] Work [facility]: Comment on above: Pattern: Unlabored pt is chewing gum 08-09-2008 12:50-0400 [facility] 91.17 [facility] Work [facility]: Comment on above: pt is chewing gum 12-06-2007 11:16-0400 BMI (Body Mass Index) 33.15 kg/m2 Ele Astudillo [facility] Internal Medicine Work Phone: 12-06-2007 11:16-0400 Body weight 90.35 [facility] Work Phone: 12-06-2007 11:16-0400 BP Diastolic 82 mm[Hg] [facility] Work [facility]: Comment on above: Patient Position: Sitting; Cuff Location : Left Arm; Cuff Size: Standard 12-06-2007 11:16-0400 BP Systolic 132 mm[Hg] [facility] Work [facility]: Comment on above: Patient Position: Sitting; Cuff Location : Left Arm; Cuff Size: Standard 12-06-2007 11:16-0400 BSA (Body Surface Area) 1.97 m2 Ele [facility] Internal Medicine Work Phone: 12-06-2007 11:16-0400 Head Circumference 0 cm [facility] Internal Medicine Work Phone: 12-06-2007 11:16-0400 Height 165.1 cm Ele Astudillo [facility] Internal Medicine Work Phone: 12-06-2007 11:16-0400 Pulse (Heart Rate) 88 /min Ele [facility] Work Phone: Comment on above: Pattern: Regular 12-06-2007 11:16-0400 Respiratory Rate 20 /min Ele Astudillo [facility] Internal Medicine Work Phone: Comment on above: Pattern: Unlabored 12-06-2007 11:16-0400 Weight 90.35 kg Ele Astudillo [facility] Internal Medicine Work Phone: 11-29-2007 10:53-0400 Body Temperature 98.4 [degF] Ele Astudillo [facility] Internal Medicine Work Phone: Comment on above: Method: Oral 11-29-2007 10:53-0400 Body weight 0 kg Ele Astudillo [facility] Internal Medicine Work Phone: 11-29-2007 10:53-0400 BP Diastolic 82 mm[Hg] Ele Astudillo [facility] Internal Medicine Work Phone: Comment on above: Patient Position: Sitting; Cuff Location : Left Arm; Cuff Size: Standard 11-29-2007 10:53-0400 BP Systolic 120 mm[Hg] Ele Astudillo [facility] Internal Medicine Work Phone: Comment on above: Patient Position: Sitting; Cuff Location : Left Arm; Cuff Size: Standard 11-29-2007 10:53-0400 Head Circumference 0 cm Ele Astudillo [facility] Internal Medicine Work Phone: 11-29-2007 10:53-0400 Height 0 cm Ele Astudillo [facility] Internal Medicine Work Phone: 11-29-2007 10:53-0400 Pulse (Heart Rate) 60 /min Ele Astudillo [facility] Internal Medicine Work Phone: Comment on above: Pattern: Regular 11-29-2007 10:53-0400 Pulse Oximetry 91 % Ele Astudillo [facility] Internal Medicine Work Phone: Comment on above: Room air 11-29-2007 10:53-0400 Respiratory Rate 16 /min Ele Astudillo [facility] Internal Medicine Work Phone: Comment on above: Pattern: Unlabored 11-29-2007 10:53-0400 Weight 0 kg Ele Astudillo [facility] Internal Medicine Work Phone: 11-28-2007 10:54-0400 BMI (Body Mass Index) 33.15 kg/m2 Ele Astudillo [facility] Internal Medicine Work Phone: 11-28-2007 10:54-0400 Body weight 90.35 kg Ele Astudillo [facility] Internal Medicine Work Phone: 11-28-2007 10:54-0400 BP Diastolic 82 mm[Hg] Ele Astudillo [facility] Internal Medicine Work Phone: Comment on above: Patient Position: Sitting; Cuff Location : Left Arm; Cuff Size: Standard 11-28-2007 10:54-0400 BP Systolic 138 mm[Hg] Ele Astudillo [facility] Internal Medicine Work Phone: Comment on above: Patient Position: Sitting; Cuff Location : Left Arm; Cuff Size: Standard 11-28-2007 10:54-0400 BSA (Body Surface Area) 1.97 m2 Ele Astudillo [facility] Internal Medicine Work Phone: 11-28-2007 10:54-0400 Head Circumference 0 cm Ele Astudillo [facility] Internal Medicine Work Phone: 11-28-2007 10:54-0400 Height 165.1 cm Ele Astudillo [facility] Internal Medicine Work Phone: 11-28-2007 10:54-0400 Pulse (Heart Rate) 88 /min Ele Astudillo [facility] Internal Medicine Work Phone: Comment on above: Pattern: Regular 11-28-2007 10:54-0400 Respiratory Rate 20 /min Ele Astudillo [facility] Internal Medicine Work Phone: Comment on above: Pattern: Unlabored 11-28-2007 10:54-0400 Weight 90.35 kg Ele Astudillo [facility] Internal Medicine Work Phone: 2007 07:42-0400 BMI (Body Mass Index) 33.15 kg/m2 [facility] Work [facility]: 2007 07:42-0400 Body Temperature 98.6 [degF] Ele Astudillo [facility] Internal Medicine Work Phone: Comment on above: Method: Oral 2007 07:42-0400 Body weight 90.35 kg Ele Astudillo [facility] Internal Medicine Work Phone: 2007 07:42-0400 BP Diastolic 100 mm[Hg] Ele Astudillo [facility] Internal Medicine Work Phone: Comment on above: Patient Position: Sitting; Cuff Location : Left Arm; Cuff Size: Standard 2007 07:42-0400 BP Systolic 138 mm[Hg] Ele Astudillo [facility] Internal Medicine Work Phone: Comment on above: Patient Position: Sitting; Cuff Location : Left Arm; Cuff Size: Standard 2007 07:42-0400 BSA (Body Surface Area) 1.97 m2 Ele Astudillo [facility] Internal Medicine Work Phone: 2007 07:42-0400 Head Circumference 0 cm Ele Astudillo [facility] Internal Medicine Work Phone: 2007 07:42-0400 Height 165.1 cm Ele Astudillo [facility] Internal Medicine Work Phone: 2007 07:42-0400 Pulse (Heart Rate) 88 /min Ele Astudillo [facility] Internal Medicine Work Phone: Comment on above: Pattern: Regular 2007 07:42-0400 Pulse Oximetry 91 % Ele Astudillo [facility] Internal Medicine Work Phone: Comment on above: Room air 2007 07:42-0400 Respiratory Rate 18 /min Ele Astudillo [facility] Internal Medicine Work Phone: Comment on above: Pattern: Unlabored 2007 07:42-0400 Weight 90.35 kg Ele Astudillo [facility] Internal Medicine Work Phone: 06-30-2007 15:54-0400 Body Temperature 97.8 [degF] Ele Astudillo [facility] Internal Medicine Work Phone: Comment on above: Method: Oral 06-30-2007 15:54-0400 Body weight 90.35 kg Ele Astudillo [facility] Internal Medicine Work Phone: 06-30-2007 15:54-0400 BP Diastolic 70 mm[Hg] Ele Astudillo [facility] Internal Medicine Work Phone: Comment on above: Patient Position: Sitting; Cuff Location : Left Arm; Cuff Size: Standard 06-30-2007 15:54-0400 BP Systolic 122 mm[Hg] Ele Astudillo [facility] Internal Medicine Work Phone: Comment on above: Patient Position: Sitting; Cuff Location : Left Arm; Cuff Size: Standard 06-30-2007 15:54-0400 Head Circumference 0 cm Ele Astudillo [facility] Internal Medicine Work Phone: 06-30-2007 15:54-0400 Height 0 cm Ele Astudillo [facility] Internal Medicine Work Phone: 06-30-2007 15:54-0400 Pulse (Heart Rate) 110 /min Ele Astudillo [facility] Internal Medicine Work Phone: Comment on above: Pattern: Regular 06-30-2007 15:54-0400 Pulse Oximetry 95 % Ele Astudillo [facility] Internal Medicine Work Phone: Comment on above: Room air 06-30-2007 15:54-0400 Respiratory Rate 18 /min Ele Astudillo [facility] Internal Medicine Work Phone: Comment on above: Pattern: Unlabored 06-30-2007 15:54-0400 Weight 90.35 kg Ele Astudillo [facility] Internal Medicine Work Phone: 06-08-2007 11:35-0400 BMI (Body Mass Index) 31.13 kg/m2 Ele Astudillo [facility] Internal Medicine Work Phone: 06-08-2007 11:35-0400 Body Temperature 98 [degF] Ele Astudillo [facility] Internal Medicine Work Phone: Comment on above: Method: Oral 06-08-2007 11:35-0400 Body weight 84.85 kg Ele Astudillo [facility] Internal Medicine Work Phone: 06-08-2007 11:35-0400 BP Diastolic 70 mm[Hg] Ele Astudillo [facility] Internal Medicine Work Phone: Comment on above: Patient Position: Sitting; Cuff Location : Left Arm; Cuff Size: Standard 06-08-2007 11:35-0400 BP Systolic 124 mm[Hg] Ele Astudillo [facility] Internal Medicine Work Phone: Comment on above: Patient Position: Sitting; Cuff Location : Left Arm; Cuff Size: Standard 06-08-2007 11:35-0400 BSA (Body Surface Area) 1.92 m2 Ele Astudillo [facility] Internal Medicine Work Phone: 06-08-2007 11:35-0400 Head Circumference 0 cm Ele Astudillo [facility] Internal Medicine Work Phone: 06-08-2007 11:35-0400 Height 165.1 cm Ele Astudillo [facility] Internal Medicine Work Phone: 06-08-2007 11:35-0400 Pulse (Heart Rate) 76 /min Ele Astudillo [facility] Internal Medicine Work Phone: Comment on above: Pattern: Regular 06-08-2007 11:35-0400 Pulse Oximetry 93 % Ele Astudillo [facility] Internal Medicine Work Phone: Comment on above: Room air 06-08-2007 11:35-0400 Respiratory Rate 18 /min Ele Astudillo [facility] Internal Medicine Work Phone: Comment on above: Pattern: Unlabored 06-08-2007 11:35-0400 Weight 84.85 kg Ele Astudillo [facility] Internal Medicine Work Phone: 06-07-2007 16:07-0400 BMI (Body Mass Index) 31.13 kg/m2 Ele Astudillo [facility] Internal Medicine Work Phone: 06-07-2007 16:07-0400 Body Temperature 98.5 [degF] Ele Astudillo [facility] Internal Medicine Work Phone: Comment on above: Method: Oral 06-07-2007 16:07-0400 Body weight 84.85 kg Ele Astudillo [facility] Internal Medicine Work Phone: 06-07-2007 16:07-0400 BP Diastolic 76 mm[Hg] Ele Astudillo [facility] Internal Medicine Work Phone: Comment on above: Patient Position: Sitting; Cuff Location : Left Arm; Cuff Size: Standard 06-07-2007 16:07-0400 BP Systolic 122 mm[Hg] Ele Astudillo [facility] Internal Medicine Work Phone: Comment on above: Patient Position: Sitting; Cuff Location : Left Arm; Cuff Size: Standard 06-07-2007 16:07-0400 BSA (Body Surface Area) 1.92 m2 Ele Astudillo [facility] Internal Medicine Work Phone: 06-07-2007 16:07-0400 Head Circumference 0 cm Ele Astudillo [facility] Internal Medicine Work Phone: 06-07-2007 16:07-0400 Height 165.1 cm Ele Astudillo [facility] Internal Medicine Work Phone: 06-07-2007 16:07-0400 Pulse (Heart Rate) 92 /min Ele Astudillo [facility] Internal Medicine Work Phone: Comment on above: Pattern: Regular 06-07-2007 16:07-0400 Respiratory Rate 18 /min Ele Astudillo [facility] Internal Medicine Work Phone: Comment on above: Pattern: Unlabored 06-07-2007 16:07-0400 Weight 84.85 kg Ele Astudillo [facility] Internal Medicine Work Phone: 05-17-2007 13:36-0400 BMI (Body Mass Index) 31.13 kg/m2 Ele Astudillo [facility] Internal Medicine Work Phone: 05-17-2007 13:36-0400 Body Temperature 97.8 [degF] Ele Astudillo [facility] Internal Medicine Work Phone: Comment on above: Method: Oral 05-17-2007 13:36-0400 Body weight 84.85 kg Ele Astudillo [facility] Internal Medicine Work Phone: 05-17-2007 13:36-0400 BP Diastolic 92 mm[Hg] Ele Astudillo [facility] Internal Medicine Work Phone: Comment on above: Patient Position: Sitting; Cuff Location : Left Arm; Cuff Size: Standard 05-17-2007 13:36-0400 BP Systolic 142 mm[Hg] Ele Astudillo [facility] Internal Medicine Work Phone: Comment on above: Patient Position: Sitting; Cuff Location : Left Arm; Cuff Size: Standard 05-17-2007 13:36-0400 BSA (Body Surface Area) 1.92 m2 Ele Astudillo [facility] Internal Medicine Work Phone: 05-17-2007 13:36-0400 Head Circumference 0 cm Ele Astudillo [facility] Internal Medicine Work Phone: 05-17-2007 13:36-0400 Height 165.1 cm Ele Astudillo [facility] Internal Medicine Work Phone: 05-17-2007 13:36-0400 Pulse (Heart Rate) 88 /min Ele Astudillo [facility] Internal Medicine Work Phone: Comment on above: Pattern: Regular 05-17-2007 13:36-0400 Respiratory Rate 20 /min Ele Astudillo [facility] Internal Medicine Work Phone: Comment on above: Pattern: Unlabored 05-17-2007 13:36-0400 Weight 84.85 kg Ele Astudillo [facility] Internal Medicine Work Phone: 09-14-2006 10:45-0400 BMI (Body Mass Index) 31.13 kg/m2 Ele Astudillo [facility] Internal Medicine Work Phone: 09-14-2006 10:45-0400 Body weight 84.85 kg Ele Astudillo [facility] Internal Medicine Work Phone: 09-14-2006 10:45-0400 BP Diastolic 70 mm[Hg] [facility] Work Phone: Comment on above: Patient Position: Sitting; Cuff Location : Left Arm; Cuff Size: Standard 09-14-2006 10:45-0400 BP Systolic 120 mm[Hg] Ele [facility] Work Phone: Comment on above: Patient Position: Sitting; Cuff Location : Left Arm; Cuff Size: Standard 09-14-2006 10:45-0400 BSA (Body Surface Area) 1.92 m2 Ele [facility] Work Phone: 09-14-2006 10:45-0400 Head Circumference 0 cm [facility] Work Phone: 09-14-2006 10:45-0400 Height 165.1 cm [facility] Work Phone: 09-14-2006 10:45-0400 Pulse (Heart Rate) 80 /min [facility] Work Phone: Comment on above: Pattern: Regular 09-14-2006 10:45-0400 Pulse Oximetry 92 % Ele [facility] Work Phone: Comment on above: Room air 09-14-2006 10:45-0400 Respiratory Rate 16 /min Ele [facility] Work Phone: Comment on above: Pattern: Unlabored 09-14-2006 10:45-0400 Weight 84.85 kg Ele Astudillo [facility] Internal Medicine Work Phone: Encounters Encounter Date Encounter Type Care Provider Facility Start: 01-03-2025 End: 01-03-2025 ambulatory [facility] Facility:[facility] Start: 12-06-2024 End: 12-06-2024 ambulatory [facility] Facility:[facility] Start: 11-27-2024 End: 11-27-2024 ambulatory [facility] Facility:[facility] Start: 11-23-2024 End: 11-23-2024 ambulatory [facility] Facility:[facility] Start: 11-08-2024 End: 11-08-2024 ambulatory Tiffanie Miedel Facility:[facility] Start: 11-03-2024 End: 11-03-2024 ambulatory Tiffanie Miedel Facility:[facility] Start: 10-09-2024 End: 10-09-2024 ambulatory Tiffanie Miedel Facility:[facility] Start: 09-21-2024 End: 09-21-2024 ambulatory Tiffanie Miedel Facility:[facility] Start: 09-18-2024 End: 09-18-2024 ambulatory Tiffanie Miedel Facility:[facility] Start: 09-08-2024 End: 09-08-2024 ambulatory Tiffanie Miedel Facility:[facility] Start: 08-18-2024 [facility]: 08-15-[facility]24 End: 08-16-2024 ambulatory Tiffanie Miedel Facility:[facility] Start: 08-11-2024 End: 08-11-2024 ambulatory Tiffanie Miedel Facility:[facility] Start: 08-08-2024 ambulatory Tiffanie Miedel Facility: [facility] Start: 08-08-2024 End: 08-08-2024 ambulatory Tiffanie Miedel Facility:[facility] Start: 08-01-2024 Encounter for other preprocedural examination Tiffanie Miedel [facility] Start: 07-28-2024 End: 07-28-2024 ambulatory Tiffanie Miedel Facility:[facility] Start: 07-20-2024 End: 07-20-2024 ambulatory [facility]el [facility] [facility] Start: 07-17-2024 End: 07-17-2024 ambulatory Tiffanie Miedel Facility:[facility] Start: 07-17-2024 End: 07-17-2024 ambulatory Tiffanie Miedel Facility:[facility] Start: 07-14-2024 End: 07-14-2024 ambulatory Tiffanie Miedel Facility:[facility] Start: 07-05-2024 End: 07-05-2024 ambulatory Tiffanie Miedel Facility:[facility] Start: 06-09-2024 End: 06-09-2024 ambulatory Tiffanie Miedel Facility:[facility] Start: 06-09-2024 ambulatory Tiffanie Miedel Facility: [facility] Start: 05-18-2024 End: 05-29-2024 ambulatory Tiffanie Miedel Facility:[facility] Start: 05-05-2024 End: 05-05-2024 ambulatory Tiffanie Miedel Facility:[facility] Start: 05-03-2024 End: 05-29-2024 ambulatory Tiffanie Miedel Facility:[facility] Start: 04-26-2024 End: 04-28-2024 ambulatory Tiffanie Miedel Facility:[facility] Start: 04-20-2024 End: 04-20-2024 ambulatory Tiffanie Miedel Facility:[facility] Start: 04-19-2024 End: 04-28-2024 ambulatory Tiffanie Miedel Facility:[facility] Start: 04-14-2024 End: 04-14-2024 ambulatory Tiffanie Miedel Facility:[facility] Start: 04-12-2024 End: 04-12-2024 ambulatory Tiffanie Miedel Facility:[facility] Start: 04-11-2024 ambulatory Tiffanie Miedel Facility: [facility] Start: 04-07-2024 End: 04-07-2024 ambulatory Tiffanie Miedel Facility:[facility] Start: 03-22-2024 End: 03-22-2024 ambulatory Tiffanie Miedel Facility:[facility] Start: 03-10-2024 End: 03-10-2024 ambulatory Tiffanie Miedel Facility:[facility] Start: 02-11-2024 End: 02-11-2024 ambulatory Tiffanie Miedel Facility:[facility] Start: 02-01-2024 End: 02-01-2024 ambulatory Tiffanie Miedel Facility:[facility] Start: 01-14-2024 End: 01-14-2024 ambulatory Tiffanie Miedel Facility:[facility] Start: 10-19-2023 End: 10-19-2023 ambulatory TIFFANIE E MIEDEL Facility:[facility] Start: 10-19-2023 End: 10-19-2023 Office outpatient visit 25 minutes Yemi Milan TALENT ACQUISITION COORDINATOR.PAINTINGS RESTORER Work Phone: [facility] Comment on above: Cellulitis of arm, r ight (Primary Dx) Start: 05-08-2023 End: 05-08-2023 ambulatory TIFFANIE SHARMA Facility:[facility] Start: 05-08-2023 End: 05-08-2023 Patient encounter procedure Domo Leslie MD Work Phone: [facility] Comment on above: SOB (shortness of br eath) (Primary Dx); Hypoxia Start: 05-02-2023 End: 05-02-2023 ambulatory TIFFANIE Garcia YUDIMARISELA Facility:[facility] Start: 05-02-2023 End: 05-02-2023 Patient encounter procedure Eileen Phillips TALENT ACQUISITION COORDINATOR.PAINTINGS RESTORER Work Phone: [facility] Comment on above: 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) (HCC) (Primary Dx); URI, acute Start: 12-03-2022 End: 12-03-2022 Subsequent hospital visit by physician Xr [facility] [place] Work Phone: Radiology Comment on above: Rhonchi at both lung bases [R09.89] Start: 12-03-2022 End: 12-03-2022 ambulatory TIFFANIE Garcia YUDIMARISELA Facility:[facility] Start: 12-03-2022 End: 12-03-2022 Patient encounter procedure Allyssa Singletary APRN.PAINTINGS RESTORER Work Phone: [facility] Comment on above: Sinobronchitis (Prim sammi Dx); Rhonchi at both lung bases Start: 04-22-2022 ambulatory ANDREA TINSLEY Facili ty:[facility] Start: 04-22-2022 Encounter for other preprocedural examination ANDREA TINSLEY Facility:[facility] Start: 04-22-2022 End: 04-22-2022 Office outpatient new 60 minutes Andrea Tinsley MD Work Phone: Division [facility] Thoracic [facility] Comment on above: Malignant neoplasm o f lower lobe of left lung (Primary Dx); Preoperative evaluation to rule out surgical contraindication; Other specified diabetes mellitus without complication, without long-term current use of insulin; Hypertension, unspecified type Start: 04-22-2022 End: 04-22-2022 Patient encounter status Andrea Tinsley MD Work Phone: Division of Thoracic Surgery at [facility] Start: 03-31-2022 ambulatory ANDREA TINSLEY Facility :[facility] Start: 02-17-2022 End: 02-17-2022 Subsequent hospital visit by physician Xr [facility] [place] Work Phone: Radiology Comment on above: Acute cough [R05.1] Start: 02-17-2022 End: 02-17-2022 Patient encounter procedure Allyssa Singletary APRN.CNP Work Phone: [facility] Comment on above: Community acquired p neumonia of right upper lobe of lung (Primary Dx); Acute cough Start: 08-08-2018 End: 08-08-2018 Office outpatient visit 25 minutes [facility] Start: 05-26-2018 End: 05-26-2018 Office outpatient visit 5 minutes [facility] Start: 05-26-2018 Review Ele Astudillo [facility] Start: 05-18-2018 Patient encounter procedure [facility] Start: 04-28-2018 End: 04-28-2018 Office outpatient visit 40 minutes [facility] Start: 01-31-2018 End: 01-31-2018 Office outpatient visit 25 minutes [facility] Start: 01-12-2018 End: 01-12-2018 Phone Encounter [facility] Start: 11-15-2017 End: 11-15-2017 Phone Encounter [facility] Start: 11-09-2017 End: 11-09-2017 Office outpatient visit 15 minutes [facility] Start: 09-15-2017 End: 09-15-2017 Office outpatient visit 25 minutes Eel [facility] Start: 08-12-2017 End: 08-12-2017 Office outpatient visit 25 minutes Ele [facility] Start: 04-21-2017 End: 04-21-2017 Annotation/Addendum Ele [facility]studillo [facility] Start: 04-20-2017 End: 04-20-2017 Phone Encounter Ele Baudilio [facility] Start: 10-12-2016 End: 10-12-2016 Office outpatient visit 15 minutes Ele [facility] Start: 10-05-2016 End: 10-05-2016 Office outpatient visit 10 minutes Ele Astud[facility] Start: 09-28-2016 End: 09-28-2016 Office outpatient visit 15 minutes Ele [facility] Start: 06-10-2016 End: 06-10-2016 Office outpatient visit 15 minutes Ele [facility] Start: 06-08-2016 End: 06-08-2016 Office outpatient visit 10 minutes Ele [facility] Start: 06-05-2016 End: 06-05-2016 Office outpatient visit 15 minutes Ele Astud[facility] Start: 06-04-2016 End: 06-05-2016 Office outpatient visit 25 minutes Ele Astud[facility] Start: 06-01-2016 End: 06-01-2016 Office outpatient visit 25 minutes Ele Astudillo [facility] Start: 01-03-2016 End: 01-03-2016 Annotation/Addendum Ele [facility]stud[facility] Start: 06-24-2015 End: 06-24-2015 Office outpatient visit 25 minutes Ele [facility] Start: 06-12-2015 End: 06-13-2015 Office outpatient visit 25 minutes Ele A[facility] Start: 06-05-2015 End: 06-06-2015 Office outpatient visit 25 minutes Ele [facility] Start: 02-25-2015 End: 02-25-2015 Phone Encounter [facility] Start: 02-06-2015 End: 02-06-2015 Phone Encounter [facility] Start: 02-06-2015 End: 02-06-2015 Annotation/Addendum Ele [facility] Start: 02-06-2015 End: 02-06-2015 Office outpatient visit 25 minutes Ele Astudillo [facility] Start: 12-12-2014 End: 12-12-2014 Office outpatient visit 15 minutes Ele Astudillo [facility] Start: 09-04-2014 End: 09-04-2014 Office outpatient visit 25 minutes Ele Morilloon [facility] Start: 06-25-2014 End: 06-25-2014 Annotation/Addendum Ele Astudillo [facility] Start: 06-25-2014 End: 06-25-2014 Office outpatient visit 15 minutes Eletalib Morilloam[facility] Start: 12-14-2013 End: 12-14-2013 Office outpatient visit 15 minutes Ele Baudilioamara [facility] Start: 11-16-2013 End: 11-16-2013 Office outpatient visit 15 minutes Ele Astudillo [facility] Start: 11-03-2013 End: 11-03-2013 Office outpatient visit 25 minutes Ele Baudilio [facility] Start: 10-20-2013 End: 10-20-2013 Office outpatient visit 40 minutes Eletalib Astudillo [facility] Start: 09-20-2013 End: 09-20-2013 Patient encounter Ele Astudillo [facility] Start: 08-30-2013 End: 09-05-2013 Patient encounter Ele Astudillo [facility] Start: 12-20-2012 End: 12-20-2012 Patient encounter Ele Astudillo [facility] Start: 11-11-2012 End: 11-11-2012 Patient encounter Ele Astudillo [facility] Start: 10-06-2012 End: 10-06-2012 Patient encounter Ele [facility]stud[facility] Start: 09-23-2012 End: 09-23-2012 Patient encounter Ele Astudillo [facility] Start: 09-07-2012 End: 09-07-2012 Patient encounter Ele Astudillo [facility] Start: 08-24-2012 End: 08-24-2012 Patient encounter Ele [facility] Start: 08-10-2012 End: 08-10-2012 Patient encounter Ele Astudillo [facility] Start: 07-15-2012 End: 07-15-2012 Patient encounter Ele Astudillo [facility] Start: 04-08-2012 End: 04-08-2012 Patient encounter Ele Astudillo [facility] Start: 03-16-2012 End: 03-16-2012 Patient encounter Ele Astudillo [facility] Start: 02-17-2012 End: 02-17-2012 Patient encounter Ele [facility]studillo [facility] Start: 08-06-2011 End: 08-06-2011 Patient encounter Ele [facility] Start: 02-13-2011 End: 02-13-2011 Patient encounter Ele [facility] Start: 10-31-2010 End: 10-31-2010 Patient encounter Ele [facility]stud[facility] Start: 09-15-2010 End: 09-15-2010 Phone Encounter Ele Astudillo [facility] Start: 09-11-2010 End: 09-11-2010 Phone Encounter Ele Astudillo [facility] Start: 08-22-2010 End: 08-22-2010 Patient encounter Ele [facility]studillo [facility] Start: 06-27-2010 End: 06-27-2010 Patient encounter Ele Astudillo [facility] Start: 05-13-2010 End: 05-13-2010 Patient encounter Ele Astudillo [facility] Start: 03-13-2010 End: 03-14-2010 Patient encounter Ele Astudillo [facility] Start: 02-14-2010 End: 02-14-2010 Patient encounter Ele Astudillo [facility] Start: 12-24-2009 End: 12-24-2009 Patient encounter Ele Astudillo [facility] Start: 12-11-2009 End: 12-11-2009 Patient encounter Ele Astudillo [facility] Start: 08-15-2009 End: 08-15-2009 Patient encounter Ele Astudillo [facility] Start: 07-25-2009 End: 07-25-2009 Patient encounter Ele Astudillo [facility] Start: 02-15-2009 End: 02-15-2009 Patient encounter Ele Astudillo [facility] Start: 02-11-2009 End: 02-11-2009 Patient encounter Ele Astudillo [facility] Start: 02-04-2009 End: 02-04-2009 Patient encounter Ele [facility] Start: 12-12-2008 End: 12-12-2008 Historical Summary Ele Astudillo [facility] Start: 12-10-2008 End: 12-10-2008 Patient encounter Ele Astudillo [facility] Start: 10-25-2008 End: 10-25-2008 Patient encounter Ele Astudillo [facility] Start: 09-07-2008 End: 09-07-2008 Patient encounter Ele Astudillo [facility] Start: 09-06-2008 End: 09-06-2008 Phone Encounter Ele Astudillo [facility] Start: 08-09-2008 End: 08-09-2008 Office outpatient visit 25 minutes Ele Baudilio [facility] Start: 12-06-2007 End: 12-06-2007 Historical Summary Ele Astudillo [facility] Start: 12-06-2007 End: 12-06-2007 Office outpatient visit 15 minutes Eletalib Astudillo [facility] Start: 11-29-2007 End: 11-29-2007 Patient encounter Ele Astudillo [facility] Start: 11-28-2007 End: 11-28-2007 Patient encounter Ele Astudillo [facility] Start: 2007 End: 2007 Patient encounter Ele Astudillo [facility] Start: 08-11-2007 End: 08-11-2007 Historical Summary Ele Astudillo [facility] Start: 06-30-2007 End: 06-30-2007 Office outpatient visit 25 minutes Ele Buadilio [facility] Start: 06-08-2007 End: 06-08-2007 Office outpatient visit 15 minutes Ele Baudilio [facility] Start: 06-07-2007 End: 06-07-2007 Office outpatient visit 25 minutes Ele Baudilio [facility] Start: 05-17-2007 End: 05-17-2007 Patient encounter Eletalib Astudillo [facility] Start: 04-29-2007 End: 04-29-2007 Historical Summary Eletalib Morilloon [facility] Start: 09-14-2006 End: 09-14-2006 Office outpatient visit 40 minutes Ele Baudilio [facility] Start: 09-13-2006 End: 09-13-2006 Historical Summary Ele Baudilio [facility] Start: 07-15-2006 End: 07-15-2006 Refill Request Ele Astudillo [facility] Start: 07-12-2006 End: 07-12-2006 Refill Request Ele Astudillo [facility] Start: 03-15-2006 End: 03-15-2006 Historical Summary Ele Astudillo [facility] Start: 02-12-2006 End: 02-12-2006 Erroneous Entry Ele Astudillo [facility] Start: 02-12-2006 End: 02-12-2006 Historical Summary Ele Astudillo [facility] Procedures Date Procedure Procedure Detail Performing Clinician Start: 12-03-2022 Radiologic exam chest 2 views Allyssa Singletary TALENT ACQUISITION COORDINATOR.PAINTINGS RESTORER Work Phone: Start: 02-17-2022 Radiologic exam chest 2 views Allyssa King JERZYN.PAINTINGS RESTORER Work Phone: Start: 09-28-2018 End: 09-28-2018 Pulmonary Visit Report Comments: See Note; NOTES: [facility] Pulmonary Medicine of [address] [place] [address] OFFICE VISIT Date of Service: 09/28/18 MR#: [id number] Acct: [id number] Name: TEAGAN VAUGHAN Rep #: [id number] : 1950 Provider: INDIRA Butts Age/Sex: 67/F Location: [facility].PMW Status: Signed Assessment AND Plan 1. Asthma-COPD [...] Other Medications New: Follow Up 3 Months (CHUYITA) HPI 3 M FU: Chief Complaint: Wheezing [...] lb Intake Visit Reasons: 3 M FU [facility] Vendor: [employer] Accompanied by: Self Allergies No Known Allergies [...] Z68.37 09/28/18 0915 <Electronically signed by Marta VILAC> Date Marta Butts NP-C Cosigner Signature: Date (if applicable) CC: Ele Pendleton Start: 09-23-2018 End: 09-23-2018 6 Minute Walk Test Comments: See Note; NOTES: [facility] Pulmonary Services/Neurology [address] [place] [address] MR#: [id number] Acct: [id number] Name: TEAGAN VAUGHAN Rep #: [id number] : 1950 67 From: Woody Galvez MD Referring Dr: Twan Maynard DO Status: REG CLI Location: [facility] Date: Sex: F C PSN 6 Minute Walk Test - 6 Minute Walk Test 6 Minute Walk Test: 6 Minute Walk Test PSN:6-Minute Walk Test Start: 09/23/18 09:23 Freq: Status: Active Protocol: RESP.6MINW Document 09/23/18 09:23 [facility] (Rec: 09/23/18 09:31 [facility] [id number]) 6 Minute Walk Test Date Performed 09/23/18 [...] WITH HER OWN PORTABLE O2 TANK FROM [place]. TEST BEGAN ON ROOM AIR. PATIENT PLACED [...] Date Dictated: 09/23/18 110 Date Transcribed: 09/23/181102 Medicare Contact Specialist: Woody Galvez MD Signed Ele Astudillo Start: 06-16-2018 End: 06-16-2018 Pulmonary Visit Report Comments: See Note; NOTES: [facility] Pulmonary Medicine of [address] [place] [address] OFFICE VISIT Date of Service: 06/16/18 MR#: [id number] Acct: [id number] Name: TEAGAN VAUGHAN Rep #: [id number] : 1950 Provider: Twan Maynard D.O. Age/Sex: 67/F Location: [facility].PMW Status: Signed Assessment AND Plan 1. Asthma-COPD [...] full facemask and receives her equipment through [employer]. Today, the patient reports continued shortness of [...] lb Intake Visit Reasons: 6 M FU [facility] Vendor: [employer] Accompanied by: Self Allergies No Known Allergies [...] 08/23/17 [Rx Confirmed 06/16/18] Handicap Placcard #1 [id number] 09/07/17 [Rx Confirmed 06/16/18] fluticasone propionate 50 [...] with cough, No chest congestion, Yes cough (APPIAN DEVELOPER), No chest tightness, No pain on inspiration, [...] min 3 Views Comments: See Note; NOTES: [facility] Imaging Services [address] [place] [address] Foot min 3 Views MR#: [id number] Acct: [id number] Name: TEAGAN VAUGHAN Rep #: [id number] : 1950 F 66 From: Gabriela Ruiz MD PCP: Ele Astudillo DO Status: REG CLI Study: Foot min 3 Views Date of Exam: 11/09/17 Exam# [id number] Ordering Dr: Delphine Rivera APPIAN DEVELOPER-Paco STUDY: X-RAY - RIGHT FOOT CLINICAL: Female, [...] , CC: INDIRA Rivera; Ele Astudillo DO Medicare Contact Specialist: Signed Delphine Rivera Start: 11-03-2017 End: 11-03-2017 Pulmonary Visit Report Comments: See Note; NOTES: Pulmonary Medicine [address] [place] [address] OFFICE VISIT Date of Service: 11/03/17 MR#: [id number] Acct: [id number] Name: TEAGAN VAUGHAN Rep #: [id number] : 1950 Provider: Marta Butts Age/Sex: 66/F Location: [facility].PMW Status: Signed Assessment AND Plan 1. ISIDRO [...] mcg(15 mcgx3)/0.50.5 mL IM ONCE Z23 Marla Lailaho mL IM syringe Discontinued Reason: Office Medicatio [...] 08/23/17 [Rx Confirmed 09/07/17] Handicap Placcard #1 [id number] 09/07/17 [Rx Confirmed 09/07/17] [facility] Medical History BMI 37.0-37.9, adult (Chronic) [...] Affect: Positive normal affect Immunizations flu vacc 2017-(65yr up)-MF59C(PF) 45 mcg(15 mcgx3)/0.5 mL IM syringe Performing Provider: INDIRA Cisneros Administered by: Marla Covarrubias on 11/03/17 08:23 Dose Route Admin Location Lot Number Expiration Date NDC Senior Chemist 0.5 mL IM Left Deltoid [id number] 05/30/18 80218-845-22 SEQIRUS VIS Given Date VIS Publication Date 11/03/17 10/05/14 Eligibility Eligibility Date Coding Level of Care Code Off vis,est,level 3 Diagnoses ISIDRO (obstructive sleep apnea) G47.33 Stage 3 severe COPD by GOLD classification J44.9 11/03/17 0844 <Electronically signed by Marta JACOBSON> Date Marta VILAC Cosigner Signature: Date (if applicable) CC: Ele Pendleton Start: 10-27-2017 End: 10-27-2017 [place] - Individual Treatment Plan Comments: See Note; NOTES: [facility] Pulmonary Rehab Reports [address] [place] [address] [place] - Individual Treatment Plan MR#: [id number] Acct: [id number] Name: CLEMENTTEAGAN Nelson Rep #: [id number] : 1950 66 From: Raf Bryson ENVIRONMENTAL CONSERVATION OFFICER, REGIONAL AGRONOMIST, BS PCP: Ele Astudillo DO Exercise - [...] Raf Bryson CRT, RCP, BS> Date Raf Byrson CRT, RCP, BS Outcome assessment reviewed. Exercise plan approved as documented. Treatment plan and goals support patient needs/abilities. Continue with current plan. I certify the patient demonstrates improvement and remains willing and capable of participation. the patient continues to benefit from pulmonary services/training. The patient may continue at current intensity, endurance and modality and progress per protocol. 10/27/17 5037<Electronically signed by Pablo Meadows MD> Cosigner Signature: Date Pablo Meadows MD CC: Signed Eletalib Astudillo Start: 10-19-2017 End: 10-19-2017 [place] - Individual Treatment Plan Comments: See Note; NOTES: [facility] Pulmonary Rehab Reports [address] [place] [address] [place] - Individual Treatment Plan MR#: [id number] Acct: [id number] Name: TEAGAN VAUGHAN Rep #: [id number] : 1950 66 From: Raf Bryson ENVIRONMENTAL CONSERVATION OFFICER, REGIONAL AGRONOMIST, BS PCP: Ele Astudillo DO Exercise - [...] Comments: See Note; NOTES: Pulmonary Medicine of [address] [place] [address] OFFICE VISIT Date of Service: 09/07/17 MR#: [id number] Acct: [id number] Name: TEAGAN VAUGHAN Nelson Rep #: [id number] : 1950 Provider: Twan Maynard D.O. Age/Sex: 66/F Location: [facility].PMW Status: Signed Assessment AND Plan 1. Stage [...] full facemask and receives her equipment through [employer]. She denies the presence of chest tightness or wheezing. She does have a mild, intermittently productive cough, which she attributes to her allergies. She continues to receive weekly allergy immunotherapy injections. Her weight has been stable. She denies fevers, chills or night sweats. Intake Vital Signs09/07/17 Height 5 ft 5 in 09/07/17 Weight: 239 lb Intake Visit Reasons: 3 M FU [employer] Required: No DME Vendor: [employer] Accompanied by: Self Is patient in pain?: [...] 08/23/17 [Rx Confirmed 09/07/17] Handicap Placcard #1 [id number] 09/07/17 [Rx Confirmed 09/07/17] [facility] Medical History BMI 37.0-37.9, adult (Chronic) [...] CC: Ele Pendleton Start: 08-23-2017 End: 08-23-2017 [place] - Individual Treatment Plan Comments: See Note; NOTES: [facility] Pulmonary Rehab Reports [address] [place] [address] [place] - Individual Treatment Plan MR#: [id number] Acct: [id number] Name: TEAGAN VAUGHAN Rep #: [id number] : 1950 66 From: Raf Bryson ENVIRONMENTAL CONSERVATION OFFICER, REGIONAL AGRONOMIST, BS PCP: Ele Astudillo DO Exercise - [...] and modality and progress per protocol. 08/23/17 3240<Electronically signed by Yo Rutledge MD> Talia Signature: Date Yo Rutledge MD CC: Signed Ele Baudilio Start: 07-30-2017 End: 07-30-2017 [place] - Individual Treatment Plan Comments: See Note; NOTES: [facility] Pulmonary Rehab Reports [address] [address] [place] - Individual Treatment Plan MR#: [id number] Acct: [id number] Name: TEAGAN VAUGHAN Rep #: [id number] : 1950 66 From: Raf Bryson ENVIRONMENTAL CONSERVATION OFFICER, REGIONAL AGRONOMIST, BS PCP: Ele Astudillo DO General Information [...] Comments: See Note; NOTES: Pulmonary Medicine of [address] [place] [address] OFFICE VISIT Date of Service: 07/13/17 MR#: [id number] Acct: [id number] Name: TEAGAN VAUGHAN Rep #: [id number] : 1950 Provider: Marta Butts Age/Sex: 66/F Location: [facility].PMW Status: Signed Assessment AND Plan 1. Daytime [...] 07 follow-up appointment. Orders Orders: Medications New: hadvjhnwqsy-qtcowarpd-ixjszc er 100-62.5-25 mcg (Trelegy Ellipta) 1 inh [...] of systems. She has not used any cbyq-izi-kwxtaem medications in addition to prescription medications for [...] QDAY #1 device 07/13/17 [Rx Confirmed 07/13/17] [facility] Medical History BMI 37.0-37.9, adult (Chronic) Hypothyroidism [...] signed by Marta VILAC> Date Marta Butts APPIAN DEVELOPER-C Cosigner Signature: Date (if applicable) CC: Ele Pendleton Start: 06-24-2017 End: 06-24-2017 Pulmonary Function Test Comments: See Note; NOTES: [facility] Pulmonary Services/Neurology [address] [place] [address] MR#: [id number] Acct: [id number] Name: TEAGAN VAUGHAN Rep #: [id number] : 1950 66 From: Twan Maynard DO Referring Dr: Twan Maynard D.O. Status: REG CLI Ordering Dr: Date: Location: [facility] Sex: F C INTRODUCTION: The [...] DO Date Dictated: 06/24/171300 Date Transcribed: 06/24/171300 Medicare Contact Specialist: DB Signed Ele Astudillo Start: 06-18-2017 End: 06-18-2017 6 Minute Walk Test Comments: See Note; NOTES: [facility] Pulmonary Services/Neurology [address] [address] MR#: [id number] Acct: [id number] Name: TEAGAN VAUGHAN Rep #: [id number] : 1950 66 From: Woody Galvez MD Referring Dr: Twan Maynard D.O. Date: Ordering Dr: Sex: F C Location: PSN PSN 6 Minute Walk Test - 6 Minute Walk Test 6 Minute Walk Test: 6 Minute Walk Test PSN:6-Minute Walk Test Start: 06/18/17 09:45 Freq: Status: Active Protocol: RESP.6MINW Document 06/18/17 09:45 SFENTON (Rec: 06/18/17 09:51 SFENTON [id number]) 6 Minute Walk Test Date Performed 06/18/17 [...] exertion. 06/18/17 1503 <Electronically signed by Woody Galevz MD> Date Woody Galvez MD CC: Date Dictated: 06/18/17 1501 Date Transcribed: 06/18/171500 Medicare Contact Specialist: Woody Galvez Signed Ele Astudillo Start: 06-14-2017 End: 06-14-2017 [place] - History AND Physical Comments: See Note; NOTES: [facility] Pulmonary Rehab Reports [address] [place] [address] [place] - History AND Physical MR#: [id number] Acct: [id number] Name: TEAGAN VAUGHAN Rep #: [id number] : 1950 66 From: Raf Bryson ENVIRONMENTAL CONSERVATION OFFICER, REGIONAL AGRONOMIST, BS PCP: Ele Astudillo DO History of [...] Advanced Directives - Advanced Directives Power of Street Cleaner: Yes Living Will: Yes Advance Directives Information [...] = Denies ([place]). Left click = Reports ([place]) Respiratory: Reports: Appetite, Normal, Sleep, Normal. Denies: [...] 41 06/14/17 1321 <Electronically signed by Raf Brysno CRT, RCP, BS> Date Raf Bryson CRT, [...] and modality and progress per protocol. 06/14/17 5693<Electronically signed by Yo Rutledge MD> Cosigner Signature: Date Yo Rutledge MD CC: Signed Ele Astudillo Start: 06-14-2017 End: 06-14-2017 [place] - Individual Treatment Plan Comments: See Note; NOTES: [facility] Pulmonary Rehab Reports [address] [place] [address] [place] - Individual Treatment Plan MR#: [id number] Acct: [id number] Name: ETAGAN VAUGHAN Rep #: [id number] : 1950 66 From: Raf Bryson ENVIRONMENTAL CONSERVATION OFFICER, REGIONAL AGRONOMIST, BS PCP: Ele Astudillo DO General Information [...] Comments: See Note; NOTES: Pulmonary Medicine of [address] [place] [address] OFFICE VISIT Date of Service: 06/01/17 MR#: [id number] Acct: [id number] Name: TEAGAN VAUGHAN Rep #: [id number] : 1950 Provider: Twan Maynard D.O. Age/Sex: 66/F Location: [facility].PMW Status: Signed Assessment AND Plan 1. COPD [...] Q24H #1 device 06/01/17 [Rx Confirmed 06/01/17] [facility] Medical History BMI 37.0-37.9, adult (Chronic) [...] DO Ele Astudillo Start: 09-09-2016 End: 12-02-2016 CHUYITA Butts PAINTINGS RESTORER Work Phone: Start: 09-09-2016 End: 12-02-2016 Follow Up Appt 3 months Marta han PAINTINGS RESTORER Work Phone: Start: 08-14-2016 End: 08-14-2016 Echocardiogram Complete Comments: See Note; NOTES: [facility] Cardiovascular Services [address] [address] Echo Complete 08/14/16 1107 MR#: [id number] Acct: [id number] Name: TEAGAN VAUGHAN Rep #: [id number] : 1950 65 From: Jase Post MD Attending Dr: Twan Maynard D.O. Status: REG CLI Ordering Dr: Twan Maynard DO Date: 08/14/16 Location: [facility] Sex: F C Admitted: Reason For [...] Jase Post MD CC: Twan Maynard D.O.; Ele Astudillo DO Date Dictated: 08/14/16 1107 Date Transcribed: 08/14/16 1454 Medicare Contact Specialist: Signed Ele Astudillo Start: 08-12-2016 End: 12-02-2016 DMB Rebeca Acevedo APPIAN DEVELOPER Work Phone: Start: 08-12-2016 End: 08-13-2016 ENT Referral Rebeca Acevedo APPIAN DEVELOPER Work Phone: Start: 08-12-2016 End: 12-02-2016 Follow Up Appt 3 months Rebeca Acevedo APPIAN DEVELOPER Work Phone: Start: 08-12-2016 End: 08-13-2016 ENT Referral Rebeca Acevedo APPIAN DEVELOPER Work Phone: Start: 07-30-2016 End: 08-03-2016 *RASTZONE8 Allergens,Zone8 [id number] Twan Maynard DO Work Phone: Start: 07-30-2016 [...] Phone: Start: 07-30-2016 End: 08-03-2016 *RASTZONE8 Allergens,Zone8 [id number] Twan Maynard DO Work Phone: Start: 07-30-2016 End: 08-03-2016 Globulin Twan Maynard DO Work Phone: Start: 07-30-2016 End: 08-03-2016 IgE [Mass/volume] in Serum Twan Maynard DO Work Phone: Start: 07-22-2016 End: 07-22-2016 Pulmonary Function Report Comp Comments: See Note; NOTES: [facility] Pulmonary Services/Neurology [address] [address] Pulmonary Function Test (Comp) MR#: [id number] Acct: [id number] Name: TEAGAN VAUGHAN Rep #: [id number] : 1950 65 From: Twan Maynard DO Referring Dr: Marta Butts APPIAN DEVELOPER Status: REG CLI Ordering Dr: Marta Butts APPIAN DEVELOPER-C Date: 07/21/16 Location: [facility] Sex: F C DATE OF [...] C: Referring Provider . T: NTS JOB: [id number] 07/22/16 1052 <Electronically signed by Twan Maynard DO> Date Twan Maynard DO CC: Marta Butts; Twan Maynard D.O.; Ele Baudilio HOLLOWAY Date Dictated: 07/21/16 154 Date Transcribed: 07/21/161542 Medicare Contact Specialist: Signed Ele Astudillo Start: 07-07-2016 End: 07-08-2016 6 Minute Walk Test Comments: See Note; NOTES: [facility] Pulmonary Services/Neurology [address] [place] [address] MR#: [id number] Acct: [id number] Name: TEAGAN VAUGHAN Rep #: [id number] : 1950 65 From: Twan Maynard DO Referring Dr: Marta Butts NP Date: Ordering Dr: Sex: F C Location: PSN PSN 6 Minute Walk Test - 6 Minute Walk Test 6 Minute Walk Test: 6 Minute Walk Test PSN:6-Minute Walk Test Start: 07/07/16 11:21 Freq: Status: Active Document 07/07/16 11:00 HG (Rec: 07/07/16 11:24 HG [id number]) 6 Minute Walk Test Date Performed 07/07/16 [...] Dictated: 07/07/16 1509 Date Transcribed: 07/07/16 150 Medicare Contact Specialist: Twan Maynard DO Signed Ele Astudillo Start: [...] Pulmonary Function Test - complete Marta Butts PAINTINGS RESTORER Work Phone: Start: 06-29-2016 End: 07-07-2016 Pulmonary stress test/simple Marta Butts PAINTINGS RESTORER Work Phone: Start: 06-10-2016 End: 06-10-2016 Chest PA and Lateral Comments: See Note; NOTES: [facility] Imaging Services [address] [place] [address] Verdana 4d Chest PA and Lateral MR#: [id number] Acct: [id number] Name: TEAGAN VAUGHAN Rep #: [id number] : 1950 F 65 From: Lanie Linder MD PCP: Ele Astudillo DO Status: [facility] ER Study: Chest PA and Lateral Date of Exam: 06/10/16 Exam# [id number] Ordering Dr: Cailin Elizabeth MD STUDY: X-RAY [...] of acute cardiopulmonary disease. Electronically Signed: Lanie Linder MD at 12:44 EDT , Service support , CC: Cailin Elizabeth MD; Ele Astudillo DO Medicare Contact Specialist: Signed Ele Astudillo Start: 06-01-2016 End: 06-02-2016 Cerv Spine 2 or 3 Views Comments: See Note; NOTES: [facility] Imaging Services [address] [place] [address] Verdana 4d Cerv Spine 2 or 3 Views MR#: [id number] Acct: [id number] Name: TEAGAN VAUGHAN Rep #: [id number] : 1950 F 65 From: Leonardo Canada MD PCP: Ele Astudillo DO Status: REG CLI Study: Cerv Spine 2 or 3 Views Date of Exam: 06/01/16 Exam# [id number] Ordering Dr: Ele Astudillo DO STUDY: X-RAY [...] at 1:25 EDT Tel , Service support [phone], CC: Ele Astudillo DO Medicare Contact Specialist: Signed Ele Astudillo Work Phone: Start: 06-01-2016 End: 06-02-2016 Shoulder min 2 Views Comments: See Note; NOTES: [facility] Imaging Services [address] [place] [address] Verdana 4d Shoulder min 2 Views MR#: [id number] Acct: [id number] Name: TEAGAN VAUGHAN Rep #: [id number] : 1950 F 65 From: Leonardo Canada MD PCP: Ele Astudillo DO Status: REG CLI Study: Shoulder min 2 Views Date of Exam: 06/01/16 Exam# [id number] Ordering Dr: Ele Astudillo DO STUDY: X-RAY [...] at 6:17 EDT Tel , Service support [phone], CC: Ele Astudillo DO Medicare Contact Specialist: Signed Ele Astudillo Work Phone: Start: 06-24-2015 End: 06-24-2015 Spmtry w/vc expiratory humphrey w/wo mxml vol vntj _ Ele Astudillo Work Phone: Comment on above: still obstruction but sl improvd Start: 06-12-2015 End: 06-12-2015 Ecg routine ecg w/least 12 lds w/i&r [MEASUREMENTS ANALYSIS] Date of Test: 06/12/2015 11:03:48; Heart Rate: 94; LA Interval: 166; QRS: 102; QT Interval: 350; Corrected QT Interval (QTc): 409; P [place]: 53; QRS [place]: 30; T [place]: 43; Blood Pressure: 158/82 [ECG DIAGNOSTIC STATEMENTS] Date of Test: 06/12/2015 11:03:48; Summary: 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 ABNORMAL Hiram Castaneda Comment on above: nsr no acute chg Start: 06-05-2015 End: 06-05-2015 Spmtry w/vc expiratory humphrey w/wo mxml vol vntj _ Ele Astudillo Work Phone: Comment on above: obstruction present Start: 12-12-2014 End: 12-12-2014 Cerv Spine 4 or 5 Views Comments: See Note; NOTES: [facility] Imaging Services [address] [address] [place] [address] Radiology Report MR#: [id number] Acct: [id number] Name: APRIL VAUGHAN Rep #: [id number] : 1950 F 64 From: Yuri Denny MD PCP: Ele Astudillo DO Status: REG CLI Study: Cerv Spine 4 or 5 Views Date of Exam: 12/12/14 Exam# [id number] Ordering Dr: Gretchen Brown STUDY: X-RAY - CERVICAL SPINE REASON FOR EXAM: Female, 64 years old. Neck pain. TECHNIQUE: 5 view(s) of the cervical spine were obtained. COMPARISON: None FINDINGS: There are degenerative changes of the anterior atlantoaxial articulation. Normal odontoid process. Normal curvature and lordosis. Multilevel moderate to marked degenerative changes most pronounced at C5-C6. Oblique views show extensive multilevel bilateral neural foraminal narrowing. The soft tissue structures are unremarkable. IMPRESSION: No acute abnormality. Prominent multilevel degenerative changes and neural foraminal narrowing. Electronically Signed: Yuri Denny MD at 16:58 EDT , Service support [phone], RAD/Cerv Spine 4 or 5 Views IMPRESSION: No acute abnormality. Prominent multilevel degenerative changes and neural foraminal narrowing. Electronically Signed: Yuri Denny MD at 16:58 EDT , Service support [phone], CC: Gretchen Brown; Ele Astudillo DO Medicare Contact Specialist: Signed Gretchen Brown Work Phone: Start: 09-04-2014 End: 09-04-2014 Forearm 2 Views Comments: See Note; NOTES: [facility] Imaging Services [address] [place] [address] Radiology Report MR#: [id number] Acct: [id number] Name: APRIL VAUGHAN Rep #: [id number] : 1950 F 63 From: Ariel Cleveland MD PCP: Ele Astudillo DO Status: REG CLI Study: Forearm 2 Views Date of Exam: 09/04/14 Exam# [id number] Ordering Dr: Gretchen Brown STUDY: X-RAY - LEFT RADIUS AND ULNA REASON FOR EXAM: Female, 63 years old. Pain following a fall. TECHNIQUE: 2 view(s) of the forearm. COMPARISON: None. FINDINGS: There is no demonstrated soft tissue swelling. Normal visualized radius. Normal visualized ulna. 2 tiny bony densities are seen adjacent to the medial epicondyle of the distal humerus. This may represent either old injury or nondisplaced avulsion fracture. Imaging of the elbow joint is recommended. IMPRESSION: 2 tiny bony density seen along the medial epicondyle. Correlation with the radiographs of the elbow joint is recommended if clinically indicated. Electronically Signed: Ariel Cleveland MD at 11:08 EDT Tel [phone], Service support [phone], RAD/Forearm 2 Views IMPRESSION: 2 tiny bony density seen along the medial epicondyle. Correlation with the radiographs of the elbow joint is recommended if clinically indicated. Electronically Signed: Ariel Cleveland MD at 11:08 EDT Tel [phone], Service support [phone], CC: Gretchen Brown; Ele Astudillo DO Medicare Contact Specialist: Signed Gretchen Brown Work Phone: Start: 09-04-2014 End: 09-04-2014 Knee 4 or More Views Comments: See Note; NOTES: [facility] Imaging Services [address] [place] [address] Radiology Report MR#: [id number] Acct: [id number] Name: APRIL VAUGHAN Rep #: [id number] : 1950 F 63 From: Ariel Cleveland MD PCP: Ele Astudillo DO Status: REG CLI Study: Knee 4 or More Views Date of Exam: 09/04/14 Exam# [id number] Ordering Dr: Gretchen Brown STUDY: X-RAY - RIGHT KNEE REASON FOR EXAM: Female, 63 years old. Pain and swelling following a fall. TECHNIQUE: 4 view(s) of the knee. COMPARISON: None. FINDINGS: Normal visualized distal femur. Normal visualized proximal tibia and fibula. Normal proximal tibiofibular articulation. There is mild degenerative arthrosis of the medial femorotibial compartment. Normal lateral femorotibial compartment. Normal patellofemoral articulation. Prepatellar soft tissue swelling. IMPRESSION: Degenerative arthrosis. Prepatellar soft tissue swelling. Electronically Signed: Ariel Cleveland MD at 11:09 EDT Tel [phone], Service support [phone], RAD/Knee 4 or More Views IMPRESSION: Degenerative arthrosis. Prepatellar soft tissue swelling. Electronically Signed: Ariel Cleveland MD at 11:09 EDT Tel [phone], Service support [phone], CC: Gretchen Brown; Ele Astudillo DO Medicare Contact Specialist: Signed Gretchen Brown Work Phone: Start: 09-20-2013 End: 09-21-2013 Chest PA and Lateral Comments: See Note; NOTES: [facility] Imaging Services [address] [place] [address] Radiology Report MR#: [id number] Acct: [id number] Name: APRIL VAUGHAN Rep #: [id number] : 1950 F 62 From: Leonardo Canada MD PCP: Ele Astudillo DO Status: REG CLI Study: Chest PA and Lateral Date of Exam: 09/20/13 Exam# [id number] Ordering Dr: Ele Astudillo DO STUDY: X-RAY CHEST REASON FOR EXAM: Female, 62 years old. Cough TECHNIQUE: Frontal and lateral views of the chest. COMPARISON: February 17, 2012 FINDINGS: The lungs are clear and expanded. There is no demonstrated pleural abnormality. Normal size heart. Normal mediastinum and veronique. Normal visualized pulmonary arteries. Normal visualized aortic arch and descending thoracic aorta. Normal visualized thoracic spine. Normal visualized ribs, clavicles, and shoulders. There is no demonstrated abnormality of the visualized soft tissue structures of the upper abdomen. IMPRESSION: Normal x-ray examination of the chest. Electronically Signed: Melly Canada MD at 9:43 EDT Tel , Service support [phone], RAD/Chest PA and Lateral IMPRESSION: Normal x-ray examination of the chest. Electronically Signed: Melly Canada MD at 9:43 EDT Tel , Service support [phone], CC: Ele Astudillo DO Medicare Contact Specialist: Signed Ele Baudilio Work Phone: Start: 08-30-2013 End: 08-30-2013 Spmtry w/vc expiratory humphrey w/wo mxml vol vntj _ Yanely A Fast Work Phone: Start: 01-06-2013 End: 01-07-2013 Hand Min 3 Views Comments: See Note; NOTES: [facility] Imaging Services [address] [place] [address] Radiology Report MR#: [id number] Acct: [id number] Name: CLEMENTAPRIL Nelson Rep #: [id number] : 1950 F 62 From: Tereza Keyes MD PCP: Ele Astudillo DO Status: REG CLI Study: Hand Min 3 Views Date of Exam: 01/06/13 Exam# [id number] Ordering Dr: Laura Malhotra MD STUDY: X-RAY - LEFT HAND REASON FOR EXAM: Female, 62 years old. Possible arthritis. Pain in the thumb and wrist. TECHNIQUE: 3 view(s) of the hand. COMPARISON: None. FINDINGS: Normal visualized carpal bones and carpal articulations. There is mild arthrosis of the carpometacarpal (CMC) articulation of the thumb. Normal second through fifth carpometacarpal joints. Normal metacarpi. Normal metacarpophalangeal (MCP) joints. Normal visualized phalanges. There is mild arthrosis of the interphalangeal joints. The soft tissue structures are unremarkable. IMPRESSION: Degenerative osteoarthritis, as described above. Signed: Tereza Keyes M.D. January 06, 2013 at 1:43:27 PM EST [phone] Electronically Signed ADRY/ADRY If you are the referring physician and would like to consult with the radiologist who provided this interpretation, please contact Tereza Keyes M.D. at [phone]. If this radiologist is unavailable, you will be directed to another radiologist to assist. If you are a patient with a question regarding this report, please contact your referring physician directly. Professional Interpretation Provided By: [employer], Phone , These documents contain legally protected and confidential health information intended only for the use of the individual or entity named above. If you are not the intended recipient, you are hereby notified that any disclosure, copying, distribution, or other use of these documents is strictly prohibited. If you have received this information in error, please notify the sender immediately and arrange for the return or destruction of these documents. 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 Omayra Gravius Comment on above: 1979 Total hysterectomy Delphine jacobsen Comment on above: Fibroids & Family hx Total hysterectomy Omayra Gr avius Comment on above: Fibroids & Family hx Total hysterectomy Omayra Gr avius Comment on above: Fibroids & Family hx Plan of Treatment Date Care Activity Detail Author Start: 02-24-2025 Screening for malign ant neoplasm of colon [facility] Start: 10-31-2023 Covid-19 Vaccine () Covid-19 Vaccine () [facility] Start: 10-31-2023 Covid-19 Vaccine ( season) Covid-19 Vaccine () [facility] Start: 10-31-2023 Influenza vaccination Influenza Vacc ine (#1) [facility] Start: 04-30-2023 Covid-19 Vaccine ( season) Covid-19 Vaccine () [facility] Start: 03-01-2023 Advance Directive Discussion Advance Directive Discussion [facility] Start: 03-01-2023 Depression Assessment Depression Ass essment [facility] Start: 02-24-2023 Screening for malign ant neoplasm of colon COLORECTAL CANCER SCREENING DISCUSSION [facility] Start: 10-30-2022 Influenza vaccination Influenza Vacc ine (#1) [facility] Start: 03-01-2022 Advance Directive Discussion Advance Directive Discussion [facility] Start: 03-01-2022 Depression Assessment Depression Ass essment [facility] Start: 02-24-2022 Covid-19 Vaccine (6 - Moderna risk series) Covid-19 Vaccine (6 - Moderna risk series) [facility] Start: 02-06-2022 Screening for malign ant neoplasm of breast MAMMOGRAM SCREENING DISCUSSION [facility] Start: 01-20-2022 COVID-19 VACCINE (2 - Pfizer series) COVID-19 VACCINE (2 - Pfizer series) [facility] Start: 03-01-2021 ADVANCE DIRECTIVE DISCUSSION ADVANCE DIRECTIVE DISCUSSION [facility] Start: 03-01-2021 DEPRESSION ASSESSMENT DEPRESSION ASS ESSMENT [facility] Start: 08-08-2018 Thyrotropin Qn TSH (16099) [facility] Work Phone: Start: 08-08-2018 Comprehensive metabo lic panel METABOLIC PANEL, COMPREHENSIVE (71709) [facility] Work Phone: Start: 08-08-2018 Blood count complete auto&auto difrntl wbc CBC W/AUTO DIFF WBC (22410) [facility] Work Phone: Start: 08-08-2018 Procedure Education Eprescribe d prescriptions (G6003) [facility] Work Phone: Start: 08-08-2018 Provider Instruction s for Treatment [facility] Work Phone: Start: 05-26-2018 Procedure Education Eprescribe d prescriptions (G8553) [facility] Work Phone: Start: 05-26-2018 Provider Instruction s for Treatment [facility] Work Phone: Start: 04-28-2018 [facility] Work Phone: Start: 04-28-2018 Procedure Education Eprescribe d prescriptions (G8553) [facility] Work Phone: Start: 04-28-2018 Provider Instruction s for Treatment [facility] Work Phone: Start: 01-31-2018 T4 free mass conc T4, FREE (TH YROXINE) (38649) [facility] Work Phone: Start: 01-31-2018 T3 free mass conc T3, FREE (TRIDOTHYRONINE) (88168) [facility] Work Phone: Start: 01-31-2018 Thyrotropin Qn TSH (88727) [facility] Work Phone: Start: 01-31-2018 Urnls dip stick/tabl et reagent auto microscopy URINALYSIS, W/ MICRO (18415) [facility] Work Phone: Start: 01-31-2018 Urine albumin quantitative MICROALBUMIN: CREATININE RATIO (68079) AND (76054) [facility] Work Phone: Start: 01-31-2018 Comprehensive metabo lic panel METABOLIC PANEL, COMPREHENSIVE (01050) [facility] Work Phone: Start: 01-31-2018 Lipid panel LIPID PANEL (18029) Com prehensive [facility] Medicine Work Phone: Start: 01-31-2018 Blood count complete auto&auto difrntl wbc CBC W/AUTO DIFF WBC (47128) [facility] Work Phone: Start: 01-31-2018 Provider Instruction s for Treatment [facility] Work Phone: Start: 11-09-2017 Procedure Education Eprescribe d prescriptions (G8553) [facility] Work Phone: Start: 11-09-2017 Provider Instruction s for Treatment Follow up if no improvement or if symptoms worsen [facility] Work Phone: Start: 09-15-2017 Procedure Education Eprescribe d prescriptions (G8553) [facility] Work Phone: Start: 09-15-2017 Provider Instruction s for Treatment [facility] Work Phone: Start: 08-12-2017 Provider Instruction s for Treatment HTN/CAD Red Flags [facility] Work Phone: Start: 06-01-2017 End: 06-01-2017 Appointment Appointment [facility] [place] Work Phone: Start: 12-02-2016 End: 12-02-2016 DMB DMB [facility] [place] Work Phone: Start: 12-02-2016 End: 12-02-2016 Follow Up Appt 6 months Follow Up Appt 6 months [facility] [place] Work Phone: Start: 12-02-2016 End: 12-02-2016 Appointment Appointment [facility] [place] Work Phone: Start: 11-24-2016 BONE DENSITY BONE DENSITY [facility] Start: 11-24-2016 Bone Density Screening Bone Density Screening [facility] Start: 11-24-2016 Screening for osteoporosis Bone Density Screening [facility] Start: 10-12-2016 Procedure Education Eprescribe d prescriptions (G8553) [facility] Work Phone: Start: 10-12-2016 Provider Instruction s for Treatment [facility] Work Phone: Start: 10-05-2016 Procedure Education Eprescribe d prescriptions (G8553) [facility] Work Phone: Start: 10-05-2016 Provider Instruction s for Treatment [facility] Work Phone: Start: 09-28-2016 [facility] Work Phone: Start: 09-28-2016 Procedure Education Eprescribe d prescriptions (G8553) [facility] Work Phone: Start: 09-28-2016 Provider Instruction s for Treatment Follow up in 2 weeks [facility] Work Phone: Start: 09-09-2016 End: 12-02-2016 DMB DMB [facility] [place] Work Phone: Start: 09-09-2016 End: 12-02-2016 Follow Up Appt 3 months Follow Up Appt 3 months [facility] [place] Work Phone: Start: 09-09-2016 End: 09-09-2016 Appointment Appointment [facility] [place] Work Phone: Start: 09-09-2016 End: 09-09-2016 Appointment Appointment [facility] [place] Work Phone: Start: 09-09-2016 End: 09-09-2016 DMB DMB [facility] [place] Work Phone: Start: 09-09-2016 End: 09-09-2016 Follow Up Appt 3 months Follow Up Appt 3 months [facility] Work Phone: Start: 08-12-2016 End: 12-02-2016 DMB D[facility] [place] Work Phone: Start: 08-12-2016 End: 08-12-2016 ENT Referral ENT Referral Jared Peñaloza, [address] [place] [address], [id number] [facility] [place] Work Phone: Start: 08-12-2016 End: 12-02-2016 Follow Up Appt 3 months Follow Up Appt 3 months [facility] [place] Work Phone: Start: 08-12-2016 End: 08-12-2016 Appointment Appointment [facility] [place] Work Phone: Start: 08-12-2016 End: 08-12-2016 DMB D[facility] [place] Work Phone: Start: 08-12-2016 End: 08-13-2016 ENT Referral ENT Referral Jared Peñaloza, [address] [facility], [place], [address] [facility] Work Phone: Start: 08-12-2016 End: 08-12-2016 Follow Up Appt 3 months Follow Up Appt 3 months [facility] Work Phone: Start: 07-30-2016 End: 08-03-2016 *[email or web address] Allergens,[id number] *[email or web address] Allergens,[id number] [facility] Work Phone: Start: 07-30-2016 End: 12-02-2016 [facility] [place] Work Phone: Start: 07-30-2016 End: 12-02-2016 Echo tthrc r-t 2d w/wom-mode compl spec&colr d Echo Complete with Color Flow [facility] Work Phone: Start: 07-30-2016 End: 12-02-2016 Follow Up Appt 6 weeks Follow Up Appt 6 weeks [facility] Work Phone: Start: 07-30-2016 End: 08-03-2016 Globulin *MAXINE Immunoglobulin E (IgE) [facility] Work Phone: Start: 07-30-2016 End: 08-03-2016 IgE mass conc (S) *MAXINE Immunoglobulin E (IgE) [facility] Work Phone: Start: 07-30-2016 End: 07-30-2016 Appointment Appointment [facility] Work Phone: Start: 07-30-2016 End: 08-03-2016 *[email or web address] Allergens,[id number] [phone] *[email or web address] Allergens,[id number] [id number] [facility] Work Phone: Start: 07-30-2016 End: 07-30-2016 [facility] Work Phone: Start: 07-30-2016 End: 07-30-2016 Follow Up Appt 6 weeks Follow Up Appt 6 weeks [facility] Phone: Start: 07-30-2016 End: 08-03-2016 Globulin *MAXINE Immunoglobulin E (IgE) [facility] Phone: Start: 07-30-2016 End: 08-03-2016 IgE mass conc (S) *MAXINE Immunoglobulin E (IgE) [facility] Phone: Start: 07-30-2016 End: 07-30-2016 Tte w/doppler, complete Echo Complete with Color Flow [facility] Phone: Start: 07-15-2016 SHINGRIX VACCINE (1 of 2) SHINGRIX VACCINE (1 of 2) [facility] Start: 07-15-2016 Zoster vaccine hzv l avni for subcutaneous use ZOSTER (SHINGLES) VACCINE (2 of 3) [facility] Start: 06-29-2016 End: 07-07-2016 CHUYITA BOOGIE [facility] Phone: Start: 06-29-2016 End: 07-07-2016 Follow Up Appt 1 month Follow Up Appt 1 month [facility] Phone: Start: 06-29-2016 End: 07-07-2016 Pulmonary Function Test - complete Pulmonary Function Test - complete [facility] Phone: Start: 06-29-2016 End: 07-07-2016 Pulmonary stress test/simple Pulmonary stress testing; simple (eg, 6-minute walk) [facility] Phone: Start: 06-29-2016 End: 07-07-2016 CHUYITA BOOGIE [facility] Phone: Start: 06-29-2016 End: 07-07-2016 Follow Up Appt 1 month Follow Up Appt 1 month [facility] Phone: Start: 06-29-2016 End: 07-07-2016 Pulmonary Function Test - complete Pulmonary Function Test - complete [facility] [place] Work Phone: Start: 06-29-2016 End: 07-07-2016 Pulmonary stress test/simple Pulmonary stress testing; simple (eg, 6-minute walk) [facility] Work Phone: Start: 06-08-2016 Procedure Education Eprescribe d prescriptions (G8553) [facility] Work Phone: Start: 06-08-2016 Provider Instruction s for Treatment Solu Medrol Injection/ Education [facility] Work Phone: Start: 06-05-2016 Provider Instruction s for Treatment [facility] Work Phone: Start: 06-04-2016 Provider Instruction s for Treatment Follow up tomorrow, as needed [facility] Work Phone: Start: 06-01-2016 Procedure Education Eprescribe d prescriptions (G8553) [facility] Work Phone: Start: 06-24-2015 Procedure Education Eprescribe d prescriptions (G8553) [facility] Work Phone: Start: 06-24-2015 Provider Instruction s for Treatment [facility] Work Phone: Start: 06-12-2015 Provider Instruction s for Treatment [facility] Work Phone: Start: 06-12-2015 Hemoglobin A1c/Hemoglobin.total mass fraction (Bld) HgA1C , Office (50879) [facility] Work Phone: Start: 06-12-2015 Glucose mass conc Blood Glucos e , Office (03290) [facility] Work Phone: Start: 06-05-2015 Provider Instruction s for Treatment [facility] Work Phone: Start: 02-06-2015 Patient Education Arthritis Ov erview *: inflammation [facility] Work Phone: Start: 02-06-2015 Procedure Education Eprescribe d prescriptions (G8553) [facility] Work Phone: Start: 12-12-2014 Provider Instruction s for Treatment Follow up in 2 weeks [facility] Work Phone: Start: 06-25-2014 Provider Instruction s for Treatment [facility] Work Phone: Start: 12-14-2013 Provider Instruction s for Treatment [facility] Work Phone: Start: 11-16-2013 Provider Instruction s for Treatment Follow up in 2 weeks [facility] Work Phone: Start: 11-03-2013 Patient Education Obesity *: cardiovascular health [facility] Work Phone: Start: 11-03-2013 Provider Instruction s for Treatment Follow up in 2 weeks [facility] Work Phone: Start: 11-03-2013 Rheumatoid factor quantitative RHEUMATOID FACTOR-QUANT (62836) test code [id number] [facility] Work Phone: Start: 11-03-2013 Extractable nuclear antigen antibody any method [facility] Work Phone: Start: 11-03-2013 Protein mass conc [facility] Work Phone: Start: 11-03-2013 Dna antibody gakona/double stranded DNA ANTIBODY-NATV/DBL ST (36330) test code [id number] [facility] Work Phone: Start: 10-20-2013 Patient Education Allergies: C ontrolling Your Environment: asthma [facility] Work Phone: Start: 10-20-2013 Procedure Education Eprescribe d prescriptions (G8553) [facility] Work Phone: Start: 10-20-2013 Provider Instruction s for Treatment [facility] Work Phone: Start: 09-20-2013 Provider Instruction s for Treatment Follow up in 1 month: reassess breathing, wt loss adn consider adipex// easy bruising [facility] Work Phone: Start: 08-30-2013 Procedure Education Eprescribe d prescriptions (G8553) [facility] Work Phone: Start: 11-11-2012 Provider Instruction s for Treatment [facility] Work Phone: Start: 11-11-2012 T3 free mass conc T3, FREE (TRIDOTHYRONINE) (80865) [facility] Work Phone: Start: 11-11-2012 T4 free mass conc T4, FREE (TH YROXINE) (78161) [facility] Work Phone: Start: 11-11-2012 Thyrotropin Qn TSH (59585) [facility] Work Phone: Start: 11-11-2012 Lipid panel LIPID PANEL (29387) [facility] Work Phone: Start: 10-06-2012 Patient Education Obesity *: cardiovascular health [facility] Work Phone: Start: 10-06-2012 Provider Instruction s for Treatment [facility] Work Phone: Start: 09-23-2012 Patient Education Obesity *: nutriti on [facility] Work Phone: Start: 09-23-2012 Provider Instruction s for Treatment Follow up in 2 weeks [facility] Work Phone: Start: 09-07-2012 Patient Education Obesity *: b nicole fat percent [facility] Work Phone: Start: 09-07-2012 Provider Instruction s for Treatment Follow up in 2 weeks [facility] Work Phone: Start: 08-24-2012 Patient Education Obesity *: cardiovascular health [facility] Work Phone: Start: 08-24-2012 Provider Instruction s for Treatment [facility] Work Phone: Start: 08-10-2012 Patient Education Allergies: C ontrolling Your Environment: allergen [facility] Work Phone: Start: 08-10-2012 Provider Instruction s for Treatment Follow up in 2 weeks [facility] Work Phone: Start: 08-10-2012 Lipid panel LIPID PANEL (04742) [facility] Work Phone: Start: 07-15-2012 Patient Education Asthma: asthma [facility] Work Phone: Start: 07-15-2012 Provider Instruction s for Treatment [facility] Work Phone: Start: 04-08-2012 Patient Education Flu Shots (I nfluenza Vaccine): prevention [facility] Work Phone: Start: 04-08-2012 Provider Instruction s for Treatment thumb injection [facility] Work Phone: Start: 02-17-2012 Provider Instruction s for Treatment [facility] Work Phone: Start: 08-06-2011 Provider Instruction s for Treatment Lateral Epicondyle injection [facility] Work Phone: Start: 02-13-2011 Provider Instruction s for Treatment Lateral Epicondyle injection [facility] Work Phone: Start: 10-31-2010 Provider Instruction s for Treatment Lateral Epicondyle injection [facility] Work Phone: Start: 06-27-2010 Provider Instruction s for Treatment Lateral Epicondyle injection [facility] Work Phone: Start: 05-13-2010 Fibrin dgradj produc ts d-dimer quantitative D-Dimer (65789) [facility] Work Phone: Comment on above: stat Start: 05-13-2010 Comprehensive metabo lic panel METABOLIC PANEL, COMPREHENSIVE (37395) [facility] Work Phone: Comment on above: stat Start: 05-13-2010 Blood count manual c ell count each CBC WITH MANUAL DIFF (97797) [facility] Work Phone: Start: 05-13-2010 Assay of lipase Lipase (41419) [facility] Work [facility]: Start: 05-13-2010 Amylase enzyme act/vol Amylase (8215 0) [facility] Work Phone: Start: 05-13-2010 Assay of amylase Amylase (30350) [facility] Work Phone: Start: 03-14-2010 Provider Instruction s for Treatment Lateral Epicondyle injection [facility] Work Phone: Start: 02-14-2010 Glucose mass conc Glucose, PP/ 2 Hour (47904) [facility] Work Phone: Start: 02-14-2010 Glucose quantitative blood xcpt reagent strip Glucose, PP/2 Hour (06925) [facility] Work Phone: Start: 12-11-2009 Provider Instruction s for Treatment [facility] Work Phone: Start: 08-15-2009 Provider Instruction s for Treatment Lateral Epicondyle injection [facility] Work Phone: Start: 07-25-2009 Provider Instruction s for Treatment *Antibiotic Usage Education - Female [facility] Work Phone: Start: 02-15-2009 Provider Instruction s for Treatment Continue Current Prescription(s) [facility] Work Phone: Start: 02-04-2009 Provider Instruction s for Treatment Solu Medrol Injection/ Education [facility] Work Phone: Start: 02-04-2009 Blood count complete automated CBC (AUTO) (03697) [facility] Work Phone: Start: 02-04-2009 Fibrin dgradj produc ts d-dimer quantitative D-Dimer (54094) [facility] Work Phone: Start: 12-10-2008 Provider Instruction s for Treatment Solu Medrol Injection/ Education [facility] Work Phone: Start: 10-25-2008 Provider Instruction s for Treatment [facility] Work Phone: Start: 09-07-2008 Provider Instruction s for Treatment Lateral Epicondyle injection [facility] Work Phone: Start: 12-06-2007 Provider Instruction s for Treatment Continue Current Prescription(s) [facility] Work Phone: Start: 11-28-2007 Provider Instruction s for Treatment Solu Medrol Injection/ Education [facility] Work Phone: Start: 2007 Provider Instruction s for Treatment [facility] Work Phone: Start: 06-30-2007 Provider Instruction s for Treatment [facility] Work Phone: Start: 06-08-2007 Provider Instruction s for Treatment FOLLOW UP NEEDED [facility] Work Phone: Start: 06-07-2007 Provider Instruction s for Treatment FOLLOW UP TOMORROW [facility] Work Phone: Start: 05-17-2007 Provider Instruction s for Treatment Solu Medrol Injection/ Education [facility] Work Phone: Start: 09-14-2006 Provider Instruction s for Treatment [facility] Work Phone: Start: 09-14-2006 Lipid panel Lipid Panel (88424) [facility] Work Phone: Comment on above: dx screen Start: 11-24-1996 COLOGUARD (FIT-DNA) COLOGUARD (FIT-D NA) [facility] Start: 11-24-1996 Colonoscopy COLONOSCOPY [facility] Start: 11-24-1996 COLORECTAL CANCER SCREENING COLORECTAL CANCER SCREENING [facility] Start: 11-24-[address] COLONOGRAPHY [facility] Start: 11-24-1996 DIABETES SCREEN DIABETES SCREEN [facility] Start: 11-24-1996 Diabetes Screening Diabetes Screenin g [facility] Start: 11-24-1996 FECAL OCCULT BLOOD FECAL OCCULT BLOO D [facility] Start: 11-24-1996 Lipid 1996 panel - Serum or Plasma Lipid Screening [facility] Start: 11-24-1996 Lipid panel Lipid Screening [facility] Start: 11-24-1996 LIPID SCREEN LIPID SCREEN [facility] Start: 11-24-1996 Screening for malign ant neoplasm of colon [facility] Start: 11-24-1996 SIGMOIDOSCOPY SIGMOIDOSCOPY [facility] Start: 1991 Lipid panel LIPID SCREENING [facility] Start: 1991 Mammography [facility] Start: 1991 Screening for malign ant neoplasm of breast Mammogram Screening [facility] Start: 11-24-1981 Zoledronic acid therapy Alpha- 1 Antitrypsin Deficiency Screening [facility] Start: 11-24-1972 Screening for malign ant neoplasm of cervix CERVICAL CANCER SCREENING DISCUSSION [facility] Start: 11-24-1970 Third diphtheria, tetanus and acellular pertussis (DTaP) vaccination TDAP (ADULT) [facility] Start: 11-24-1970 Urine microalbumin profile [facility] Start: 11-24-1969 ANNUAL PCP TEAM INFECTIOUS DISEASE PHYSICIAN MELA DISEASE VISIT ANNUAL PCP TEAM CHRONIC DISEASE VISIT [facility] Start: 11-24-1969 Anxiety Screening Anxiety Screening [facility] Start: 11-24-1969 Depression Screening Depression Scre ening [facility] Start: 11-24-1969 HEPATITIS C SCREENING HEPATITIS C [facility] Start: 11-24-1969 Hepatitis C screening Hepatitis C [facility] Start: 11-24-1962 Screening for malign ant neoplasm of cervix Cervical Cancer Screening [facility] Start: 1950 Hepatitis C screening HEPATITI S C VIRUS SCREENING [facility] Start: 1950 Screening for osteoporosis DEXA SCAN DISCUSSION [facility] Start: 1950 Tetanus vaccination TETANUS [facility] Start: 1950 Thyroid stimulating hormone measurement TSH [facility] Work Phone: [facility] Work Phone: [facility] Work Phone: [facility] Work Phone: [facility] Work Phone[facility] Work Phone[facility] Work Phone[facility] Work Phone: [facility] Work Phone: [facility] Work Phone[facility] Work Phone: [facility] Work Phone: [facility] Work Phone: [facility] Work Phone: [facility] Work Phone: [facility] Work Phone: [facility] Work Phone: [facility] Work Phone: [facility] Work Phone: [facility] Work Phone: [facility] Work Phone[facility] Work Phone: [facility] Work Phone: [facility] Work Phone: [facility] Work Phone: [facility] Work Phone: [facility] Work Phone: [facility] Work Phone: [facility] Work Phone[facility] Work Phone: [facility] Work Phone: [facility] Work Phone: [facility] Work Phone: [facility] Work Phone: [facility] Work Phone: [facility] Work Phone: [facility] Work Phone: [facility] Work Phone: [facility] Work Phone[facility] Work Phone: [facility] Work Phone: [facility] Work Phone: [facility] Work Phone[facility] Work Phone: [facility] Work Phone: [facility] Work Phone: Immunizations Immunization Date Immunization Notes Care Provider [facility] 12-22-2022 influenza virus vacc ine, unspecified formulation Yemi Milan TALENT ACQUISITION COORDINATOR.PAINTINGS RESTORER Work Phone: [facility] 01-02-2022 influenza virus vacc ine, unspecified formulation Allyssa Singletary TALENT ACQUISITION COORDINATOR.PAINTINGS RESTORER Work Phone: [facility] 12-26-2018 pneumococcal polysaccharide vaccine, 23 valent Allyssa Singletary TALENT ACQUISITION COORDINATOR.PAINTINGS RESTORER Work Phone: [facility] 12-26-2018 Seasonal trivalent influenza vaccine, adjuvanted, preservative free Allyssa Singletary TALENT ACQUISITION COORDINATOR.PAINTINGS RESTORER Work Phone: [facility] 12-15-2016 pneumococcal conjuga te vaccine, 13 valent Allyssa Singletary TALENT ACQUISITION COORDINATOR.PAINTINGS RESTORER Work Phone: [facility] 05-20-2016 zoster vaccine, live Duncan Singletary TALENT ACQUISITION COORDINATOR.PAINTINGS RESTORER Work Phone: [facility] 05-20-2016 zoster vaccine, unspecified formulation Andrea Tinsley MD Work Phone: [facility] Payers Date Payer Category Payer Self-pay 2022 Unknown 2018 Medicare [id number] 2018 Private Health Insurance [id number] 2018 Private Health Insurance [facility] [id number] 2016 Medicare [id number] 2016 Medicare [id number] 2005 Unknown [id number] 1950 Unknown [id number] 2.16.84 0.1.439970.3.579.2.716 1950 Unknown [id number] 2.16. 840.1.685036.3.579.2.594 1950 Unknown [id number] 2.16. 840.1.188533.3.579.2.594 1951 Unknown [id number] 2.16. 840.1.416432.3.579.2.594 Unknown [id number] 2.16.8 40.1.379308.3.579.2.462 Unknown [id number] 2.16.8 40.1.710422.3.579.2.462 Unknown [id number] 2.16.8 40.1.534279.3.579.2.462 Unknown [id number] 2.16.8 40.1.330874.3.579.2.462 Unknown [id number] 2.16.8 40.1.974564.3.579.2.462 Unknown [id number] 2.16.8 40.1.472898.3.579.2.462 Unknown [id number] 2.16.8 40.1.628389.3.579.2.462 Unknown [id number] 2.16.8 40.1.562903.3.579.2.462 Unknown [id number] 2.16.8 40.1.767778.3.579.2.462 Unknown [id number] 2.16.8 40.1.554207.3.579.2.462 Unknown [id number] 2.16.8 40.1.142367.3.579.2.462 Unknown [id number] 2.16.8 40.1.883724.3.579.2.462 Unknown [id number] 2.16.8 40.1.130520.3.579.2.462 Unknown [id number] 2.16.8 40.1.693284.3.579.2.462 Unknown [id number] 2.16.8 40.1.957934.3.579.2.462 Unknown [id number] 2.16.8 40.1.822989.3.579.2.462 Unknown [id number] 2.16.8 40.1.617571.3.579.2.462 Unknown [id number] 2.16.8 40.1.259635.3.579.2.462 Unknown [id number] 2.16.8 40.1.334532.3.579.2.462 Unknown [id number] 2.16.8 40.1.829994.3.579.2.462 Unknown [id number] 2.16.8 40.1.268055.3.579.2.462 Unknown [id number] 2.16.8 40.1.942037.3.579.2.462 Unknown [id number] 2.16.8 40.1.672116.3.579.2.462 Unknown [id number] 2.16.8 40.1.628465.3.579.2.462 Unknown [id number] 2.16.8 40.1.915643.3.579.2.462 Unknown [id number] 2.16.8 40.1.488676.3.579.2.462 Unknown [id number] 2.16.8 40.1.748625.3.579.2.462 Unknown [id number] 2.16.8 40.1.876840.3.579.2.462 Unknown [id number] 2.16.8 40.1.939238.3.579.2.462 Unknown [id number] 2.16.8 40.1.885503.3.579.2.462 Unknown [id number] 2.16.8 40.1.095885.3.579.2.462 Unknown [id number] 2.16.8 40.1.607515.3.579.2.462 Unknown [id number] 2.16.8 40.1.083326.3.579.2.462 Unknown [id number] 2.16.8 40.1.876513.3.579.2.462 Unknown [id number] 2.16.8 40.1.365498.3.579.2.462 Unknown [id number] 2.16.8 40.1.402871.3.579.2.462 Unknown [id number] 2.16.8 40.1.770162.3.579.2.462 Unknown [id number] 2.16.8 40.1.352051.3.579.2.462 Unknown [id number] 2.16.8 40.1.912547.3.579.2.462 Unknown [id number] 2.16.8 40.1.893567.3.579.2.462 Social History Date Type Detail Facility Start: 02-06-2020 End: 12-03-2022 Caffeine Use Former smoker [facility] Work Phone: Comment on above: 2 QD , lives with spouse [employer]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 [facility] Work Phone: Start: 06-22-2011 End: 04-22-2022 Tobacco smoking status MIIS Ex-smoker [facility] End: 03-01-2008 History of tobacco use Current smoker [facility] End: 03-01-2008 History of tobacco use Cigarette Smoker [facility] Start: 06-22-2011 End: 04-22-2022 Tobacco use and exposure Smokeless tobacco non-user [facility] Start: 02-17-2022 End: 12-03-2022 Alcohol intake Current non-drinker of alcohol (finding) [facility] Start: 1950 Sex Assigned At Not on file [facility] History of tobacco use Passive smoker [facility] Start: 04-27-2022 Alcohol intake Lifetime non-d lovely (finding) [facility] Start: 04-12-2022 End: 04-22-2022 Exposure to SARS-CoV-2 (event) Unable to assess [facility] Start: 02-06-2020 End: 12-03-2022 Tobacco use panel [facility] National Score (1-100), lower number is lower risk Not on file [facility] Clinical Notes 02-17-2022 to 10-19-2023 Yemi Milan APRN.PAINTINGS RESTORER - 10/19/2023 1:17 PM Domo Moore MD - 05/08/2023 1:45 PM Eileen Grijalva APRN.CHELLY - 05/02/2023 11:37 AM ESTPatient Instructions Note Date & Type Note Facility 10-19-2023 Note HNO ID: [id number] Author: YEMI MILAN APRN.CHELLY Service: ? Author Type: Nurse Practitioner Type: Progress Notes Filed: 10/19/2023 14:00 Note Text: Subjective HPI Nontoxic-appearing female presents urgent care chief complaint pain swelling and redness right arm. Duration of symptoms 3 days. Associated symptoms listed above. States redness is spreading. No OTC medications. States she has a small cat at home and has been scratched multiple times on her arm. Presents today for evaluation. Overall feels well. No numbness no tingling. No decrease sensation. No joint pain or weakness. Denies any fever body aches chills productive cough chest pain shortness of breath pleuritic pain hemoptysis nausea vomiting abdominal pain change in bowel or bladder habits. Past medical history prescription medication use and allergies reviewed. Denies any kidney disease. .Patient presents with: red spot of right forearm: X 3 days PAST MEDICAL HISTORY No date: Asthma PAST SURGICAL HISTORY No date: APPENDECTOMY No date: PAST SURGICAL HISTORY OF Comment: TMJ No date: TOTAL ABDOMINAL HYSTERECT W/WO RMVL TUBE OVARY ALLERGIES Seasonal Allergies MEDICATIONS ELIQUIS 5 mg tab(s) Take 1 tablet by mouth every 12 hours. TRELEGY ELLIPTA 100-62.5-25 mcg inhalation powder inhale 1 puff by mouth and into the lungs once daily predniSONE (DELTASONE) 10 mg tablet Take 4 tabs daily for 3 days, then 2 tabs daily for 3 days, then 1 tab daily for 3 days with food. folic acid 1 mg tablet Take 2 [...] as needed. gabapentin (NEURONTIN) 300 mg capsule (Patient not [...] Topics Alcohol use: No Drug use: No BP 148/84 Pulse 85 Temp 36.5 ?C (97.7 ?F) (Tympanic) Resp 18 Wt 112.9 kg (248 lb 14.4 oz) SpO2 97% BMI 40.17 kg/m? Review of Systems Constitutional: Negative for chills, fever and malaise/fatigue. HENT: Negative for congestion, ear discharge, ear pain, sinus pain and sore throat. Eyes: Negative for blurred vision, pain, discharge and redness. Respiratory: Negative for cough, hemoptysis, sputum production, shortness of breath, wheezing and stridor. Cardiovascular: Negative for chest pain. Gastrointestinal: Negative for abdominal pain, diarrhea, nausea and vomiting. Musculoskeletal: Negative for joint pain and myalgias. Skin: Negative for itching and rash. Neurological: Negative for dizziness and headaches. Objective Physical Exam Constitutional: General: She is not in acute distress. Appearance: She is not toxic-appearing. HENT: Head: Normocephalic. Nose: Nose normal. Eyes: Pupils: Pupils are equal, round, and reactive to light. Cardiovascular: Rate and Rhythm: Normal rate. Pulmonary: Effort: Pulmonary effort is normal. No respiratory distress. Breath sounds: No wheezing or rales. Chest: Chest wall: No tenderness. Musculoskeletal: Cervical back: Normal range of motion. Skin: General: Skin is warm and dry. Comments: Small abrasion and skin noted. 3 cm x 3 cm area of induration noted. No fluctuance. No remote redness. Neurological: General: No focal deficit present. Mental Status: She is alert. ASSESSMENT/PLAN: 1. Cellulitis of arm, right - ICD9: 682.3, ICD10: L03.113 Diagnosis cellulitis of right lower. Placed on doxycycline and Keflex. Encouraged to follow-up with PCP 36-48 hours for wound reevaluation. Red flags prompt ER evaluation discussed. Patient was educated on supportive therapies. Patient will fol (more content not included)... [facility] 10-19-2023 History of Present illness Narrative Images from the original note were not included. Subjective HPI Nontoxic-appearing female presents urgent care chief complaint pain swelling and redness right arm. Duration of symptoms 3 days. Associated symptoms listed above. States redness is spreading. No OTC medications. States she has a small cat at home and has been scratched multiple times on her arm. Presents today for evaluation. Overall feels well. No numbness no tingling. No decrease sensation. No joint pain or weakness. Denies any fever body aches chills productive cough chest pain shortness of breath pleuritic pain hemoptysis nausea vomiting abdominal pain change in bowel or bladder habits. Past medical history prescription medication use and allergies reviewed. Denies any kidney disease. .Patient presents with: red spot of right forearm: X 3 days PAST MEDICAL HISTORY No date: Asthma PAST SURGICAL HISTORY No date: APPENDECTOMY No date: PAST SURGICAL HISTORY OF Comment: TMJ No date: TOTAL ABDOMINAL HYSTERECT W/WO RMVL TUBE OVARY ALLERGIES Seasonal Allergies MEDICATIONS ELIQUIS 5 mg tab(s) Take 1 tablet by mouth every 12 hours. TRELEGY ELLIPTA 100-62.5-25 mcg inhalation powder inhale 1 puff by mouth and into the lungs once daily predniSONE (DELTASONE) 10 mg tablet Take 4 tabs daily for 3 days, then 2 tabs daily for 3 days, then 1 tab daily for 3 days with food. folic acid 1 mg tablet Take 2 [...] as needed. gabapentin (NEURONTIN) 300 mg capsule (Patient not [...] Topics Alcohol use: No Drug use: No BP 148/84 Pulse 85 Temp 36.5 C (97.7 F) (Tympanic) Resp 18 Wt 112.9 kg (248 lb 14.4 oz) SpO2 97% BMI 40.17 kg/m Review of Systems Constitutional: Negative for chills, fever and malaise/fatigue. HENT: Negative for congestion, ear discharge, ear pain, sinus pain and sore throat. Eyes: Negative for blurred vision, pain, discharge and redness. Respiratory: Negative for cough, hemoptysis, sputum production, shortness of breath, wheezing and stridor. Cardiovascular: Negative for chest pain. Gastrointestinal: Negative for abdominal pain, diarrhea, nausea and vomiting. Musculoskeletal: Negative for joint pain and myalgias. Skin: Negative for itching and rash. Neurological: Negative for dizziness and headaches. Objective Physical Exam Constitutional: General: She is not in acute distress. Appearance: She is not toxic-appearing. HENT: Head: Normocephalic. Nose: Nose normal. Eyes: Pupils: Pupils are equal, round, and reactive to light. Cardiovascular: Rate and Rhythm: Normal rate. Pulmonary: Effort: Pulmonary effort is normal. No respiratory distress. Breath sounds: No wheezing or rales. Chest: Chest wall: No tenderness. Musculoskeletal: Cervical back: Normal range of motion. Skin: General: Skin is warm and dry. Comments: Small abrasion and skin noted. 3 cm x 3 cm area of induration noted. No fluctuance. No remote redness. Neurological: General: No focal deficit present. Mental Status: She is alert. ASSESSMENT/PLAN: 1. Cellulitis of arm, right - ICD9: 682.3, ICD10: L03.113 Diagnosis cellulitis of right lower. Placed on doxycycline and Keflex. Encouraged to follow-up with PCP 36-48 hours for wound reevaluation. Red flags prompt ER evaluation discussed. Patient was educated on supportive therapies. Patient will follow up with primary care provider as needed. Patient was instructed to immediately proceed to emergency room for any new, worsening, or symptoms lasting longer than anticipated. The patient's clinical presentation is otherwise unremarkable at this time. Based on exam and clinical finding, the patient is stable for discharge. Plan of care was discussed with patient. Patient verbalizes understanding and agrees to plan of care. This note was generated using Swift Navigation software. It may contain errors in wording, punctuation, or spelling. Yemi Milan APRN.CHELLY documented in this encounter [facility] 05-08-2023 Note HNO ID: [id number] Author: DOMO LESLIE MD Service: ? Author Type: Physician Type: Progress Notes Filed: 05/08/2023 13:53 Note Text: Express Care Triage Note: Patient presents to the [facility] with complaint of shortness of breath. She was seen 6 days ago and prescribed doxycycline and prednisone for COPD/asthma exacerbation. She is not feeling better with continued shortness of breath. She presents for evaluation again when x-ray is not available. Pulse ox was 79% when roomed. Further evaluation in the emergency room recommended today. Report sent to [facility] ER by ER [facility]. Pulse 110 Temp 36.1 ?C (97 ?F) Resp 22 Wt 109.4 kg (241 lb 2.9 oz) SpO2 (!) 79% BMI 38.93 kg/m? [facility] 05-08-2023 History of Present illness Narrative [facility] Triage Note: Patient presents to the [facility] with complaint of shortness of breath. She was seen 6 days ago and prescribed doxycycline and prednisone for COPD/asthma exacerbation. She is not feeling better with continued shortness of breath. She presents for evaluation again when x-ray is not available. Pulse ox was 79% when roomed. Further evaluation in the emergency room recommended today. Report sent to [facility] ER by ER [facility]. Pulse 110 Temp 36.1 C (97 F) Resp 22 Wt 109.4 kg (241 lb 2.9 oz) SpO2 (!) 79% BMI 38.93 kg/m documented in this encounter [facility] 05-02-2023 Note HNO ID: [id number] Author: EILEEN PHILLIPS APRN.PAINTINGS RESTORER Service: ? Author Type: Nurse Practitioner Type: [...] history is provided by the patient. No world language teacher was used. URI She complains of cough, [...] 91% BMI 38.90 (more content not included)... [facility] 05-02-2023 History of Present illness Narrative This note was created using NoteWriter. Subjective Teagan K Clement is a 72 year old female. 72 year old female with PMH COPD, asthma, and thyroid presents for illness. Acute onst approximately one week ago + headache +fever +chills +cough Productive sputum +fatigue Winded and hard to take deep breath at times. +wheezing Denies body aches Denies CP The history is provided by the patient. No world language teacher was used. URI She complains of cough, [...] 1. Asthma with COPD with exacerbation (HCC) (HCC) - ICD9: 493.22, ICD10: J44.1, J45.901 (primary [...] symptoms - Declines viral testing Eileen Phillips APRN.CHELLY documented in this encounter [facility] 12-03-2022 Instructions Allyssa Singletary APRN.CNP - 12/03/2022 11:35 AM EDT ASSESSMENT/PLAN: 1. [...] 100 MG TABLET documented in this encounter [facility] 12-03-2022 History of Present illness Narrative Radiology Service Progress Note PATIENT NAME: Teagan [...] RT Renetta(R) December 03, 2022 11:05 AM documented in this encounter [facility] 12-03-2022 Note HNO ID: [id number] Author: Ivis Pascual RT(Fran) Service: Radiology Author Type: Technologist Type: Progress [...] RT Renetta(R) December 03, 2022 11:05 AM [facility] 12-03-2022 Note HNO ID: [id number] Author: Allyssa Singletary APRN.PAINTINGS RESTORER Service: ? Author Type: Nurse Practitioner Type: [...] abnormality. Dictated by : MD Allyssa ROBINS APRN.[facility] 12-03-2022 History of Present illness Narrative [...] abnormality. Dictated by : MD Allyssa ROBINS APRN.PAINTINGS RESTORER documented in this encounter [facility] 04-22-2022 History and physical note Images from the original note were not included. History and Physical Patient: Teagan Vaughan Date: 04/22/2022 11:27 AM Attending Physician: Andrea Tinsley MD Chief Complaint: left lower lobe NSCLC HPI: Teagan Vaughan is a 71 y.o. female never smoker with a past medical history significant for COPD who is referred to our office by Dr. Jose ([place]) for a new diagnosis of left lower [...] Inject under the skin once a week. fvyycytjuhn-wrcsubnsm-Kcayvd 100-62.5-25 MCG/ACT Aerosol Powder, breath activated inhaler [...] resp. rate 18, height 1.651 m (5' 5), weight 109 kg (240 lb 3.2 oz), [...] and plan of care discussed with Andrea Tinsley MD. Renuka Meadows APRN-PAINTINGS RESTORER #[id number] Associated attestation - Andrea Tinsley MD - 04/27/2022 12:12 AM EST Thoracic [...] and it accurately reflects our care. Andrea Tinsley MD [facility] 04-22-2022 History and physical note Images from the original note were not included. History and Physical Patient: Teagan Vaughan Date: 04/22/2022 11:27 AM Attending Physician: Andrea Tinsley MD Chief Complaint: left lower lobe NSCLC HPI: Teagan Vaughan is a 71 y.o. female never smoker with a past medical history significant for COPD who is referred to our office by Dr. Jose ([place]) for a new diagnosis of left lower [...] Inject under the skin once a week. rrqpdjwuvoj-oajalkhnk-Vhmexs 100-62.5-25 MCG/ACT Aerosol Powder, breath activated inhaler [...] resp. rate 18, height 1.651 m (5' 5), weight 109 kg (240 lb 3.2 oz), [...] and plan of care discussed with Andrea Tinsley MD. Renuka Meadows APRN-PAINTINGS RESTORER #[id number] Associated attestation - Andrea Tinsley MD - 04/27/2022 12:12 AM EST Thoracic [...] and it accurately reflects our care. Andrea Tinsley MD documented in this encounter [facility] 02-17-2022 History of Present illness Narrative [...] - patient awaiting lung ct results with manager heart failure. Allyssa Singletary APRN.PAINTINGS RESTORER documented in this encounter [facility] Evaluation note Diagnosis Community acquired pneumonia of right upper lobe of lung- Primary Acute cough [facility] Diagnosis Malignant neoplasm of lower lobe of left lung- Primary Preoperative evaluation to rule out surgical contraindication Other specified pre-operative examination Other specified diabetes mellitus without complication, without long-term current use of insulin Hypertension, unspecified type documented in this encounter [facility] Diagnosis Sinobronchitis- Primary Unspecified sinusitis (chronic) Rhonchi at both lung bases [facility] Diagnosis Asthma with COPD with exacerbation (HCC) (HCC)- Primary Chronic obstructive asthma with exacerbation URI, acute Acute upper respiratory infections of unspecified site [facility] Diagnosis SOB (shortness of breath)- Primary Shortness of breath Hypoxia Hypoxemia [facility] Diagnosis Cellulitis of arm, right- Primary Cellulitis and abscess of upper arm and forearm documented in this encounter [facility] Instructions Name Dates Details BMI 39.0-39.9,adult : [...] ized section and content) DATE CREATED AUTHOR 05/19/2018 [facility] DATE CREATED AUTHOR AUTHOR'S ORGANIZ ATION 01/22/2023 [facility] DATE CREATED AUTHOR AUTHOR'S ORGANIZ ATION 10/21/2023 [facility] DATE CREATED AUTHOR AUTHOR'S ORGANIZ ATION 01/04/2025 [facility] Source Comments (unrecognize d section and content) In the event this informatio n is protected by the Federal Confidentiality of Alcohol and Drug Abuse Patient Records regulations: The Federal rules restrict any use of the information to criminally investigate or prosecute any alcohol or drug abuse patient.[facility] the event this information is protected by the Federal Confidentiality of Alcohol and Drug Abuse Patient Records regulations: The Federal rules restrict any use of the information to criminally investigate or prosecute any alcohol or drug abuse patient.[facility] the event this information is protected by the Federal Confidentiality of Alcohol and Drug Abuse Patient Records regulations: The Federal rules restrict any use of the information to criminally investigate or prosecute any alcohol or drug abuse patient.[facility] the event this information is protected by the Federal Confidentiality of Alcohol and Drug Abuse Patient Records regulations: The Federal rules restrict any use of the information to criminally investigate or prosecute any alcohol or drug abuse patient.[facility] the event this information is protected by the Federal Confidentiality of Alcohol and Drug Abuse Patient Records regulations: The Federal rules restrict any use of the information to criminally investigate or prosecute any alcohol or drug abuse patient.[facility] the event this information is protected by the Federal Confidentiality of Alcohol and Drug Abuse Patient Records regulations: The Federal rules restrict any use of the information to criminally investigate or prosecute any alcohol or drug abuse patient.[facility] the event this information is protected by the Federal Confidentiality of Alcohol and Drug Abuse Patient Records regulations: The Federal rules restrict any use of the information to criminally investigate or prosecute any alcohol or drug abuse patient.[facility] Reason for Visit (unrecogniz ed section and content) Reason Comments Sinus Problem sinus pressure, drai nage, cough x 9 days Reason Comments New Patient Pulmonary Nodule Specialty Diagnoses / Procedures Referred By Lizbet sr Referred To Contact Thoracic Surgery Diagnoses 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 Kriss Lee, [facility] [address] [place] [address] [facility] [address] [place] [address] Referral ID Status Reason Start Date Expiration Date V isits Requested Visits Authorized [id number] New Request 03/31/2022 04/25/2023 1 1 Reason Comments Cough Cough and congestion days x5 Reason Comments Fever KNOWLES, body chills, cou gh x 6 days Reason Comments red spot of right forearm X 3 days Care Teams (unrecognized sec tion and content) Service Coordinator Relationship Specialty Start Date End Date Tiffanie Sharma [address] [place], [place] [id number] PCP - General Family Medicine 05/12/21 Service Coordinator Relationship Specialty Start Date End Date Tiffanie Sharma MD [address] [place] [phone] PCP - General Family Medicine 04/22/22 Alejandra Hyatt, RN Registered Nurse 04/01/22 Kriss Lee, [facility] [address] [place], [place] [phone] Oncologist Hematology 04/01/22 Service Coordinator Relationship Specialty Start Date End Date Tiffanie Sharma MD [address] [place], [place] [id number] PCP - General Family Medicine 05/12/21 Service Coordinator Relationship Specialty Start Date End Date Tiffanie Sharma MD [address] [place], [place] [id number] PCP - General Family Medicine 05/12/21 Service Coordinator Relationship Specialty Start Date End Date Tiffanie Sharma MD [address] [place], [place] [id number] PCP - General Family Medicine 05/12/21 Service Coordinator Relationship Specialty Start Date End Date Tiffanie Sharma MD [address] [place] [address] PCP - General Family Medicine 05/12/21 Service Coordinator Relationship Specialty Start Date End Date Tiffanie Sharma MD [address] [place] [address] PCP - General Family Medicine 05/12/21 FOR [...] BE BASED ON THE PRIMARY CLINICAL RECORDS. [employer] [facility]. provides no warranty or guarantee of the accuracy or completeness of information in this document.
[2025-02-23 12:06] LABS: Hematocrit 41.3 % (37-47); Hemoglobin 12.9 g/dL (12.0-15.0); Immature Granulocytes Count 0.040 X10^3/uL (0.0-0.0); Mean Corp Hgb Conc 31.2 g/dL (32-36); Mean Corpuscular Volume 98.1 fL (81-99); Mean Platelet Vol. 11.7 fl (6.2-12.0); NRBC Flagged by Analyzer 0 % (0-5); Platelet Count 228 K/mm3 (150-450); RBC Distribution Width CV 14.8 % (11.6-14.6); RBC Distribution Width SD 53.3 fl (35.1-43.9); Red Blood Count 4.21 M/mm3 (4.2-5.4); White Blood Count 8.0 K/mm3 (4.4-11.0)
[2025-02-23 12:15] LABS: AST(SGOT) 25 U/L (<=31); Alanine Aminotransfer ALT/SGPT 19 U/L (<=34); Albumin, Serum 4.0 g/dL (3.4-4.8); Alkaline Phosphatase 79 U/L (35-104); Anion Gap 9 (7-18); BUN 9 mg/dL (4-19); BUN/Creat Ratio 12.7 RATIO (10-20); Calcium,Total 9.5 mg/dL (7.6-11.0); Carbon Dioxide 28.5 mmol/L (20.0-29.0); Chloride 104 mmol/L (96-106); Globulin 2.9 g/dL (2.2-4.2); Glucose 96 mg/dL (70-99); Potassium 3.9 mmol/L (3.5-5.1)
== END | disposition home or self-care (01) ==
LOC: MTLAB 09:57
PROVIDERS: PCP Family Medicine; Referring Provider Internal Medicine Rheumatology; Visit Provider Internal Medicine Rheumatology
DX: M06.4 Inflammatory polyarthropathy (principal); Z79.899 Other long term (current) drug therapy
CPT/HCPCS: 36415; 80053; 85025